=== PATIENT | male | born 1980 | race Hispanic/Latino ===

== ENCOUNTER 2018-05-03 10:25 | Emergency (ER) | payer MEDICARE, OTHER ==
[~2018-05-03] VITALS: Ht 162.6 cm; Wt 74.4 kg
[~2018-05-03 10:25] MED LIST: ATROVASTATIN PO; BACLOFEN10 MG PO; DICYCLOMINE HCL10 MG PO; DIGOXIN250 MCG PO; DIVALPROEX SOD500 M1 PO; DIVALPROEX SOD500 MG; GABAPENTIN100 MG PO; GLIMEPIRIDE2 MG PO; MELOXICAM7.5 MG PO; MIDODRINE HCL5 MG PO; PANTOPRAZOLE SO40 MG PO; PERAMPANEL PO; PROMETHAZINE HC25 M1 PO; REGLAN10 MG PO; VENLAFAXINE HC225 MG PO; VERAMYST10 GM INH; ZYRTEC10 M3 PO; [UNRECOGNIZED DRUG - OTHER]
--- OUTSIDE RECORDS SUMMARY | 2018-05-03 10:30 | XMS REPORT | Continuity of Care Document ---
Author Author [facility] Interface Address Unknown Phone Unavailable Problems Problem Status Onset Date Classification Date Reported Comments Source SDH S/P FALL Active 11/22/[address] [facility] SZ, HYPONATREMIA Active 11/11/[address] [facility] SUBDURAL HEMTOMA, S/P FALL Active 11/11/[address] [facility] SDH Active 11/03/[address] [facility] HEADACHE Active 11/03/2014 [facility] LFLT TRANSFER#[id number] Active 11/03/[address] [facility] Discharge Diagnosis: Headache 11/02/2014 11/05/2014 [facility] DIZZINESS Active 11/01/2014 [facility] Discharge Diagnosis: Gastritis 06/24/2014 06/27/2014 [facility] Discharge Diagnosis: Nausea & vomiting 06/24/2014 06/27/2014 [facility] OTHER Active 06/24/2014 [facility] ABDOMINAL PAIN Active 02/28/2013 [facility] Diabetes mellitus Active Problem 11/27/2014 [facility] Leukemia Resolved Problem 11/27/2014 [facility] Seizure Active Problem 11/27/2014 [facility] SUBDURAL HEMORRHAGE Active [facility] CONVULSIONS NEC Active [facility] ABN BLOOD CHEMISTRY NEC Active [facility] FEBRILE CONVULSIONS NOS Active [facility] Medications Medication Details Route Status Patient Instructions Ordering Provider Order Date Source tramadol hydrochloride 50 MG Oral Tablet 50 mg=1 tab, PO, Q6H, PRN Pain, X 10 day, # 40 tab, 0 Refill(s) Active 11/24/[address] [facility] 24 HR Divalproex Sodium 500 MG Extended Release Tablet 1,500 mg, 3 tab, Route: PO, Drug form: ERTAB, Daily, Dosing Weight 70.4, kg, Start date: 11/24/14 9:00:00, Duration: 30 day, Stop date: 12/23/14 9:00:00Notes: (Same as: Depakote ER) Once daily dosing; indicated for migraines. Divalproex sodium extended-release tab. Do not chew or crush. "Do Not Crush" Inactive 11/24/[address] [facility] Digoxin 250 microgram, 1 tab, Route: PO, Drug form: TAB, Daily, Dosing Weight 70.4, kg, Start date: 11/24/14 9:00:00, Duration: 30 day, Stop date: 12/23/14 9:00:00Notes: Take on an Empty Stomach (Same as: Lanoxin) Inactive 11/24/[address] [facility] Citalopram 40 mg, 2 tab, Route: PO, Drug form: TAB, Daily, Dosing Weight 70.4, kg, Start date: 11/24/14 9:00:00, Duration: 30 day, Stop date: 12/23/14 9:00:00Notes: (Same As: CeleXA) Inactive 11/24/[address] [facility] heparin 5,000 unit, 1 mL, Route: SUB-Q, Drug form: INJ, Q8H, Dosing Weight 70.4, kg, Start date: 11/24/14 9:00:00, Duration: 30 day, Stop date: 12/24/14 8:00:00Notes: porcine heparin Inactive 11/24/[address] [facility] Levetiracetam 500 MG Oral Tablet 1,000 mg, 2 tab, Route: PO, Drug form: TAB, Q12H, Dosing Weight 70.4, kg, Start date: 11/23/14 21:00:00, Duration: 30 day, Stop date: 12/23/14 9:00:00Notes: (Same as:Kezaki) No Longer Active 11/24/[address] [facility] Tramadol 100 mg, 2 tab, Route: PO, Drug form: TAB, Q6H, Dosing Weight 70.4, kg, PRN Pain Score 4-6, Start date: 11/23/14 15:28:00, Duration: 30 day, Stop date: 12/23/14 15:27:00Notes: Not to exceed 400mg/day. (Same As: Ultram) No Longer Active 11/23/[address] [facility] Requip 1 mg, 4 tab, Route: PO, Drug form: TAB, TID, Dosing Weight 70.4, kg, Start date: 11/23/14 13:00:00, Duration: 30 day, Stop date: 12/23/14 9:00:00Notes: (Same as: Requip) No Longer Active 11/23/[address] [facility] Tylenol 650 mg, 2 tab, Route: PO, Drug form: TAB, Q6H, Dosing Weight 70.4, kg, PRN Pain Score 1-3, Start date: 11/23/14 11:42:00, Duration: 30 day, Stop date: 12/23/14 11:41:00Notes: Do not exceed 4 gm/day. (Same as: Tylenol) No Longer Active 11/23/[address] [facility] Keppra 1,000 mg, 2 tab, Route: PO, Drug form: TAB, ONCE, Dosing Weight 70.4, kg, Start date: 11/23/14 11:04:00, Stop date: 11/23/14 11:04:00Notes: (Same as:Keppra) Inactive 11/23/[address] [facility] Levetiracetam 500 mg, 1 tab, Route: PO, Drug form: TAB, Q12H, Dosing Weight 70, kg, Start date: 11/23/14 9:00:00, Duration: 30 day, Stop date: 12/22/14 21:00:00Notes: (Same as:Keppra) Inactive 11/23/[address] [facility] pantoprazole 40 mg, 1 tab, Route: PO, Drug form: ECTAB, Before Breakfast, Dosing Weight 70, kg, Start date: 11/23/14 7:30:00, Duration: 30 day, Stop date: 12/22/14 7:30:00Notes: Tablet should not be chewed or cru shed. (Same as: Protonix) No Longer Active 11/23/[address] [facility] Saline Flush 0.9% 10 ml, Route: IVP, Drug Form: INJ, Dosing Weight 70, kg, Q12H, Start date: 11/22/14 21:00:00, Duration: 30 day, Stop date: 12/22/14 9:00:00Notes: (Same as: BD Posiflush) No Longer Active 11/23/[address] [facility] Docusate 100 mg, 1 cap, Route: PO, Drug form: CAP, Q12H, Dosing Weight 70, kg, Start date: 11/22/14 21:00:00, Duration: 30 day, Stop date: 12/22/14 9:00:00Notes: (Same as: Colace) (Do Not Crush) No Longer Active 11/23/[address] [facility] sennosides, SKILLED NURSING 8.6 mg, 1 tab, Route: PO, Drug Form: TAB, Dosing Weight 70, kg, Q12H, Start date: 11/22/14 21:00:00, Duration: 30 day, Stop date: 12/22/14 9:00:00Notes: (Same as: Senokot) No Longer Active 11/23/[address] [facility] Levetiracetam 1000 MG Oral Tablet [Keppra] 1,000 mg, 1 tab, Route: PO, ONCE, Dosing Weight 70, kg, Start date: 11/22/14 19:23:00, Stop date: 11/22/14 19:23:00 Inactive 11/23/[address] [facility] Dextrose 50% Syringe 6.25 gm, 12.5 mL, Route: IVP, Drug Form: INJ, Dosing Weight 70, kg, PRN, PRN Abnormal Lab Result, Start date: 11/22/14 19:20:00, Duration: 30 day, Stop date: 12/22/14 19:19:00 No Longer Active 11/23/[address] [facility] Regular Insulin, Human 100 UNT/ML Injectable Solution 5 unit, 0.05 mL, Route: SUB-Q, Drug form: SOLN, PRN, Dosing Weight 70, kg, PRN Abnormal Lab Result, Start date: 11/22/14 19:20:00, Duration: 30 day, Stop date: 12/22/14 19:19:00Notes: (Same as: Humulin R) Roll in palms of hands gently; Do not shake vigorously. "single patient use only" (Restricted to patients requiring a dose > 60 units) Stable for 28 days at room temperature Expires in days from Date No Longer Active 11/23/[address] [facility] Saline Flush 0.9% 10 ml, Route: IVP, Drug Form: INJ, Dosing Weight 70, kg, PRN, PRN Line Flush, Start date: 11/22/14 19:20:00, Duration: 30 day, Stop date: 12/22/14 19:19:00Notes: (Same as: BD Posiflush) No Longer Active 11/23/[address] [facility] Ondansetron 4 mg, 2 mL, Route: IVP, Drug form: INJ, Q8H, Dosing Weight 70, kg, PRN Nausea & Vomiting, Start date: 11/22/14 19:20:00, Duration: 30 day, Stop date: 12/22/14 19:19:00Notes: (Same as: Zofran) MEDICATION WASTE Product Size: 4 mg Product Wasted: ___ mg No Longer Active 11/23/[address] [facility] Levetiracetam 1,000 mg, Route: IVPB, ONCE, Dosing Weight 70, kg, Start date: 11/22/14 19:20:00, Stop date: 11/22/14 19:20:00Notes: Same as Keppra Mix with 100 mL NS, LR or D5W MEDICATION WASTE Product S ize: 500 mg Product Wasted: ___ mg Inactive 11/23/[address] [facility] Sodium Chloride 0.154 MEQ/ML Injectable Solution 1,000 mL, Rate: 100 ml/hr, Infuse over: 10 hr, Route: IV, Dosing Weight 70 kg, Total Volume: 1,000, Start date: 11/22/14 19:20:00, Duration: 30 day, Stop date: 12/22/14 19:19:00 No Longer Active 11/23/[address] [facility] tramadol hydrochloride 50 MG Oral Tablet 50 mg=1 tab, PO, Q6H, PRN Pain, X 10 day, # 40 tab, 0 Refill(s) Active 11/15/[address] [facility] senna 8.6 mg oral tablet 8.6 mg=1 tab, PO, Q12H, X 10 day, # 20 tab, 0 Refill(s) Active 11/15/[address] [facility] Levetiracetam 500 MG Oral Tablet 1,000 mg=2 tab, PO, Q12H, # 16 tab, 0 Refill(s) Active 11/15/[address] [facility] docusate sodium 100 mg oral capsule 100 mg=1 cap, PO, Q12H, # 20 cap, 0 Refill(s) Active 11/15/[address] [facility] 24 HR Divalproex Sodium 500 MG Extended Release Tablet 1,500 mg=3 tab, PO, Daily, 0 Refill(s) Active 11/15/[address] [facility] pantoprazole 40 MG Enteric Coated Tablet [Protonix] 40 mg=1 tab, PO, Daily, # 30 tab, 0 Refill(s) Active 11/15/[address] [facility] pneumococcal capsular polysaccharide type 1 vaccine / pneumococcal capsular polysaccharide type 10A vaccine / pneumococcal capsular polysaccharide type 11A vaccine / pneumococcal capsular polysaccharide type 12F vaccine / pneumococcal capsular polysacchar 0.5 mL, Route: IM, Drug Form: INJ, Daily, Start date: 11/14/14 9:00:00, Duration: 1 doses or times, Stop date: 11/14/14 9:00:00Notes: (Same as: Pneumovax 23) Inactive 11/14/[address] [facility] heparin 5,000 unit, 1 mL, Route: SUB-Q, Drug form: INJ, Q8H, Dosing Weight 61.8, kg, Start date: 11/12/14 16:00:00, Duration: 30 day, Stop date: 12/12/14 8:00:00Notes: porcine heparin No Longer Active 11/12/[address] [facility] Flomax 0.4 mg, 1 cap, Route: PO, Drug form: CAP, After Breakfast, Dosing Weight 61.8, kg, Start date: 11/12/14 11:30:00, Duration: 30 day, Stop date: 12/12/14 8:30:00Notes: (Same As: Flomax) No Longer Active 11/12/[address] [facility] Ibuprofen 400 mg, 1 tab, Route: PO, Drug form: TAB, Q4H, Dosing Weight 61.8, kg, PRN Pain Score 1-3, Start date: 11/12/14 10:41:00, Duration: 30 day, Stop date: 12/12/14 10:40:00Notes: (Same as: Motrin) "Do Not Crush" Give with food. No Longer Active 11/12/[address] [facility] Docusate 100 mg, 1 cap, Route: PO, Drug form: CAP, Q12H, Dosing Weight 61.8, kg, Start date: 11/12/14 9:00:00, Duration: 30 day, Stop date: 12/11/14 21:00:00Notes: (Same as: Colace) (Do Not Crush) No Longer Active 11/12/[address] [facility] sennosides, SKILLED NURSING 8.6 mg, 1 tab, Route: PO, Drug Form: TAB, Dosing Weight 61.8, kg, Q12H, Start date: 11/12/14 9:00:00, Duration: 30 day, Stop date: 12/11/14 21:00:00Notes: (Same as: Senokot) No Longer Active 11/12/[address] [facility] Divalproex Sodium 500 MG Enteric Coated Tablet 500 mg, 1 tab, Route: PO, Drug form: ECTAB, Q8H, Dosing Weight 61.8, kg, Start date: 11/12/14 8:00:00, Stop date: 12/12/14 0:00:00, Delayed Release tabletSpecial Instructions: Delayed Release tabletNotes: (Same as: Depakote Delayed Release) Do not confuse with the extended-release tablet. Delayed absorption enteric coated tablet. Do not crush No Longer Active 11/12/[address] [facility] Sodium Chloride 1000 MG Oral Tablet 3 gm, 3 tab, Route: PO, Drug form: TAB, Q6H, Dosing Weight 61.8, kg, Start date: 11/12/14 6:00:00, Duration: 30 day, Stop date: 12/12/14 0:00:00 No Longer Active 11/12/[address] [facility] magnesium sulfate 2 gm, 50 mL, Route: IVPB, Drug form: INJ, Q2H, Start date: 11/12/14 4:00:00, Duration: 2 doses or times, Stop date: 11/12/14 6:00:00 Inactive 11/12/[address] [facility] Regular Insulin, Human 100 UNT/ML Injectable Solution 7 unit, 0.07 mL, Route: SUB-Q, Drug form: SOLN, PRN, Dosing Weight 61.8, kg, PRN Abnormal Lab Result, Start date: 11/11/14 22:28:00, Duration: 30 day, Stop date: 12/11/14 22:27:00Notes: (Same as: Humulin R) Roll in palms of hands gently; Do not shake vigorously. "single patient use only" (Restricted to patients requiring a dose > 60 units) Stable for 28 days at room temperature Expires in days from Date No Longer Active 11/12/[address] [facility] Dextrose 50% Syringe 6.25 gm, 12.5 mL, Route: IVP, Drug Form: INJ, Dosing Weight 61.8, kg, PRN, PRN Abnormal Lab Result, Start date: 11/11/14 22:28:00, Duration: 30 day, Stop date: 12/11/14 22:27:00 No Longer Active 11/12/[address] [facility] tramadol hydrochloride 50 MG Oral Tablet 50 mg, 1 tab, Route: PO, Drug form: TAB, Q4H, Dosing Weight 61.8, kg, PRN Pain Score 1-3, Start date: 11/11/14 22:26:00, Duration: 30 day, Stop date: 12/11/14 22:25:00Notes: Not to exceed 400mg/day. (Same As: Ultram) No Longer Active 11/12/[address] [facility] Saline Flush 0.9% 10 ml, Route: IVP, Drug Form: INJ, Dosing Weight 68.182, kg, Q12H, Start date: 11/11/14 21:00:00, Duration: 30 day, Stop date: 12/11/14 9:00:00Notes: (Same as: BD Posiflush) No Longer Active 11/12/[address] [facility] Levetiracetam 1,000 mg, 2 tab, Route: PO, Drug form: TAB, Q12H, Dosing Weight 68.182, kg, Start date: 11/11/14 21:00:00, Duration: 30 day, Stop date: 12/11/14 9:00:00Notes: (Same as:Keppra) No Longer Active 11/12/[address] [facility] Saline Flush 0.9% 10 ml, Route: IVP, Drug Form: INJ, Dosing Weight 68.182, kg, PRN, PRN Line Flush, Start date: 11/11/14 17:13:00, Duration: 30 day, Stop date: 12/11/14 17:12:00Notes: (Same as: BD Posiflush) No Longer Active 11/11/[address] [facility] Sodium Chloride 0.154 MEQ/ML Injectable Solution 1,000 mL, Rate: 100 ml/hr, Infuse over: 10 hr, Route: IV, Dosing Weight 68.182 kg, Total Volume: 1,000, Start date: 11/11/14 17:13:00, Duration: 30 day, Stop date: 12/11/14 17:12:00 No Longer Active 11/11/[address] [facility] Levetiracetam 1,000 mg, Route: IVPB, ONCE, Dosing Weight 68.182, kg, Start date: 11/11/14 17:13:00, Stop date: 11/11/14 17:13:00 Inactive 11/11/[address] [facility] Keppra 1,000 mg, Route: IV, ONCE, Dosing Weight 68.182, kg, Start date: 11/11/14 17:07:00, Stop date: 11/11/14 17:07:00Notes: Same as Keppra Mix with 100 mL NS, LR or D5W MEDICATION WASTE Product Size: 500 mg Product Wasted: ___ mg Inactive 11/11/[address] [facility] Sodium Chloride 1000 MG Oral Tablet 3 gm=3 tab, PO, Q6H, # 360 tab, 0 Refill(s) Active 11/07/[address] [facility] tramadol hydrochloride 50 MG Oral Tablet 50 mg=1 tab, PO, Q6H, PRN Pain Score 4-6, X 30 day, # 120 tab, 0 Refill(s) Active 11/07/[address] [facility] tamsulosin 0.4 mg oral capsule 0.4 mg=1 cap, PO, Daily, # 21 cap, 0 Refill(s) Active 11/07/[address] [facility] senna 8.6 mg oral tablet 8.6 mg=1 tab, PO, Q12H, X 5 day, # 10 tab, 0 Refill(s) Active 11/07/[address] [facility] docusate sodium 100 mg oral capsule 100 mg=1 cap, PO, Q12H, # 28 cap, 0 Refill(s) Active 11/07/[address] [facility] Midodrine 5 mg, PO, TID, 0 Refill(s) Active 11/07/[address] [facility] Lactulose 667 MG/ML Oral Solution 10 gm=15 mL, PO, Daily, 0 Refill(s) Active 11/07/[address] [facility] ropinirole 1 MG Oral Tablet [Requip] 1 mg=1 tab, PO, TID, 0 Refill(s) Active 11/07/[address] [facility] Citalopram 40 mg, PO, Daily, 0 Refill(s) Active 11/07/[address] [facility] meclizine 12.5 mg oral tablet 12.5 mg=1 tab, PO, BID, 0 Refill(s) Active 11/07/[address] [facility] dicyclomine 10 mg oral capsule 20 mg=2 cap, PO, QID, 0 Refill(s) Active 11/07/[address] [facility] Buspirone 5 mg, PO, BID, 0 Refill(s) Active 11/07/[address] [facility] Valproic Acid 250 MG Enteric Coated Capsule PO, Q24H, 1500mg Daily, 0 Refill(s)Special Instructions: 1500mg Daily Active 11/07/[address] [facility] Metformin 500 mg, PO, BID, 0 Refill(s) Active 11/07/[address] [facility] Digoxin .25, Daily, 0 Refill(s) Active 11/07/[address] [facility] Divalproex Sodium 500 MG Enteric Coated Tablet [Depakote] 500 mg=1 tab, PO, TID, 0 Refill(s) Active 11/07/[address] [facility] Sodium Chloride 1000 MG Oral Tablet 2 gm, 2 tab, Route: PO, Drug form: TAB, Q8H, Dosing Weight 68.182, kg, Start date: 11/06/14 16:00:00, Duration: 30 day, Stop date: 12/06/14 8:00:00 Inactive 11/06/[address] [facility] 24 HR Divalproex Sodium 500 MG Extended Release Tablet 1,500 mg, 3 tab, Route: PO, Drug form: ERTAB, Daily, Dosing Weight 68.182, kg, Start date: 11/06/14 9:00:00, Duration: 30 day, Stop date: 12/05/14 9:00:00Notes: (Same as: Depakote ER) Once daily dosing; indicated for migraines. Divalproex sodium extended-release tab. Do not chew or crush. "Do Not Crush" No Longer Active 11/06/[address] [facility] heparin sodium, porcine 2500 UNT/ML Injectable Solution 5,000 unit, 1 mL, Route: SUB-Q, Drug form: INJ, Q8H, Dosing Weight 68.182, kg, Start date: 11/06/14 0:00:00, Duration: 30 day, Stop date: 12/05/14 16:00:00Notes: porcine heparin No Longer Active 11/06/[address] [facility] Zofran 4 mg, 1 tab, Route: PO, Drug form: TAB, Q8H, Dosing Weight 68.182, kg, PRN Nausea, Start date: 11/05/14 20:11:00, Duration: 30 day, Stop date: 12/05/14 20:10:00Notes: (Same as: Zofran) No Longer Active 11/06/[address] [facility] Tramadol 50 mg, 1 tab, Route: PO, Drug form: TAB, Q6H, Dosing Weight 68.182, kg, PRN Pain Score 4-6, Start date: 11/05/14 18:00:00, Duration: 30 day, Stop date: 12/05/14 17:59:00Notes: Not to exceed 400mg/day. (Same As: Ultram) No Longer Active 11/05/[address] [facility] 24 HR Divalproex Sodium 500 MG Extended Release Tablet [Depakote] 1,000 mg, 2 tab, Route: PO, Drug form: ERTAB, ONCE, Dosing Weight 68.182, kg, Start date: 11/05/14 17:00:00, Stop date: 11/05/14 17:00:00Notes: (Same as: Depakote ER) Once daily dosing; indicated for migraines. Divalproex sodium extended-release tab. Do not chew or crush. "Do Not Crush" Inactive 11/05/[address] [facility] Citalopram 40 mg, 2 tab, Route: PO, Drug form: TAB, Daily, Dosing Weight 68.182, kg, Start date: 11/05/14 9:00:00, Duration: 30 day, Stop date: 12/04/14 9:00:00Notes: (Same As: CeleXA) No Longer Active 11/05/[address] [facility] Sodium Chloride 1000 MG Oral Tablet 3 gm, 3 tab, Route: PO, Drug form: TAB, Q6H, Dosing Weight 68.182, kg, Start date: 11/05/14 6:00:00, Duration: 30 day, Stop date: 12/05/14 0:00:00 No Longer Active 11/05/[address] [facility] calcium gluconate + Sodium Chloride 0.9% IV 100 mL 3,000 mg, 30 mL, Route: IV, ONCE, Start date: 11/05/14 4:15:00, Stop date: 11/05/14 4:15:00 Inactive 11/05/[address] [facility] magnesium sulfate 2 gm, 50 mL, Route: IVPB, Drug form: INJ, Q2H, Start date: 11/05/14 4:00:00, Duration: 1 doses or times, Stop date: 11/05/14 4:00:00 Inactive 11/05/[address] [facility] Sodium Chloride 1000 MG Oral Tablet 2 gm, 2 tab, Route: PO, Drug form: TAB, Q8H, Dosing Weight 68.182, kg, Start date: 11/05/14 2:24:00, Duration: 30 day, Stop date: 12/05/14 0:00:00 Inactive 11/05/[address] [facility] Water 1000 MG/ML Injectable Solution 1,000 mL, Rate: 50 ml/hr, Infuse over: 21.7 hr, Route: IV, Dosing Weight 68.182 kg, Total Volume: 1,085.5, Start date: 11/05/14 0:42:00, Stop date: 12/05/14 0:41:00, For IMU and ICU use only. See Order Comments!!Special Instructions: For IMU and ICU use only. See Order Comments!! Inactive 11/05/[address] [facility] Flomax 0.4 mg, 1 cap, Route: PO, Drug form: CAP, Daily, Dosing Weight 68.182, kg, Start date: 11/04/14 21:14:00, Duration: 30 day, Stop date: 12/04/14 9:00:00Notes: (Same As: Flomax) "Do Not Crush" No Longer Active 11/05/[address] [facility] Midodrine 5 mg, 1 tab, Route: PO, Drug form: TAB, TID, Dosing Weight 68.182, kg, Start date: 11/04/14 13:00:00, Duration: 30 day, Stop date: 12/04/14 9:00:00Notes: (Same as:Proamatine) No Longer Active 11/04/[address] [facility] Requip 1 mg, 1 tab, Route: PO, Drug form: TAB, TID-Before Meals, Dosing Weight 68.182, kg, Start date: 11/04/14 11:30:00, Duration: 30 day, Stop date: 12/04/14 7:30:00Notes: (Same as: Requip) No Longer Active 11/04/[address] [facility] digoxin 250 mcg (0.25 mg) oral tablet 0.25 mg, 1 tab, Route: PO, Drug form: TAB, Daily, Dosing Weight 68.182, kg, Priority: NOW, Start date: 11/04/14 10:49:00, Duration: 30 day, Stop date: 12/04/14 9:00:00Notes: Take on an Empty Stomach (Same as: Lanoxin) No Longer Active 11/04/[address] [facility] Valproic Acid 100 MG/ML Injectable Solution 500 mg, 5 mL, Route: IVPB, Q8H, Dosing Weight 68.182, kg, Start date: 11/04/14 10:00:00, Duration: 30 day, Stop date: 12/04/14 8:00:00Notes: Dilute in at least 50ml D5W or NS. Infusion rate=20 mg/min (Same As: Depacon) No Longer Active 11/04/[address] [facility] 24 HR Divalproex Sodium 500 MG Extended Release Tablet [Depakote] 1,000 mg, 2 tab, Route: PO, Drug form: ERTAB, Daily, Dosing Weight 68.182, kg, Start date: 11/04/14 9:00:00, Duration: 30 day, Stop date: 12/03/14 9:00:00Notes: (Same as: Depakote ER) Once daily dosing; indicated for migraines. Divalproex sodium extended-release tab. Do not chew or crush. "Do Not Crush" Inactive 11/04/[address] [facility] Zofran 4 mg, 2 mL, Route: IVP, Drug form: INJ, ONCE, Dosing Weight 68.182, kg, Start date: 11/04/14 6:42:00, Stop date: 11/04/14 6:42:00Notes: (Same as: Zofran) MEDICATION WASTE Product Size: 4 mg Product Wasted: ___ mg Inactive 11/04/[address] [facility] Acetaminophen 1,000 mg, 100 mL, Route: IV, Drug form: INJ, ONCE, Dosing Weight 68.182, kg, Start date: 11/04/14 6:42:00, Stop date: 11/04/14 6:42:00Notes: Infuse over 15 minutes Do not exceed 4gm/day of acetaminophen MEDICATION WASTE Product Size: 1000 mg Product Wasted: ___ mg Inactive 11/04/[address] [facility] magnesium sulfate 2 gm, 50 mL, Route: IVPB, Drug form: INJ, ONCE, Start date: 11/04/14 5:00:00, Stop date: 11/04/14 5:00:00 Inactive 11/04/[address] [facility] Water 1000 MG/ML Injectable Solution 1,000 mL, Rate: 75 ml/hr, Infuse over: 14 hr, Route: IV, Dosing Weight 68.182 kg, Total Volume: 1,047, Start date: 11/04/14 3:48:00, Duration: 30 day, Stop date: 12/04/14 3:47:00, For IMU and ICU use only. See Order Comments!!Special Instructions: For IMU and ICU use only. See Order Comments!! Inactive 11/04/[address] [facility] Ondansetron 4 mg, 2 mL, Route: IVP, Drug form: INJ, ONCE, Dosing Weight 68.182, kg, PRN Nausea & Vomiting, Start date: 11/03/14 22:53:00Notes: (Same as: Zofran) MEDICATION WASTE Product Size: 4 mg Product Wasted: ___ mg No Longer Active 11/04/[address] [facility] Naloxone 0.04 mg, 0.1 mL, Route: IVP, Drug form: INJ, Q2MIN, Dosing Weight 68.182, kg, PRN Narcotic Reversal, Start date: 11/03/14 22:53:00, Duration: 8 doses or times, Stop date: Limited # of timesNotes: Same as Narcan No Longer Active 11/04/[address] [facility] Flumazenil 0.2 mg, 2 mL, Route: IVP, Drug form: INJ, PRN, Dosing Weight 68.182, kg, PRN Benzodiazepine Reversal, Initial dose, Start date: 11/03/14 22:53:00, Duration: 30 day, Stop date: 12/03/14 22:52:00Notes: (Same as: Romazicon) No Longer Active 11/04/[address] [facility] Fentanyl 25 microgram, 0.5 mL, Route: IVP, Drug form: INJ, Q5Min, Dosing Weight 68.182, kg, PRN Pain Score 4-6, Start date: 11/03/14 22:53:00, Duration: 4 doses or times, Stop date: Limited # of timesNotes: (Same as: Sublimaze) Preservative free. No Longer Active 11/04/[address] [facility] Saline Flush 0.9% 10 ml, Route: IVP, Drug Form: INJ, Dosing Weight 68.182, kg, Q12H, Start date: 11/03/14 21:00:00, Duration: 30 day, Stop date: 12/03/14 9:00:00Notes: preservative free. No Longer Active 11/04/[address] [facility] Docusate 100 mg, 1 cap, Route: PO, Drug form: CAP, Q12H, Dosing Weight 68.182, kg, Start date: 11/03/14 21:00:00, Duration: 30 day, Stop date: 12/03/14 9:00:00Notes: (Same as: Colace) (Do Not Crush) No Longer Active 11/04/[address] [facility] sennosides, SKILLED NURSING 8.6 mg, 1 tab, Route: PO, Drug Form: TAB, Dosing Weight 68.182, kg, Q12H, Start date: 11/03/14 21:00:00, Duration: 30 day, Stop date: 12/03/14 9:00:00Notes: (Same as: Senokot) No Longer Active 11/04/[address] [facility] Levetiracetam 1,000 mg, 2 tab, Route: PO, Drug form: TAB, Q12H, Dosing Weight 68.182, kg, Start date: 11/03/14 21:00:00, Stop date: 12/03/14 9:00:00Notes: (Same as:Keppra) No Longer Active 11/04/[address] [facility] ceFAZolin (SCIP) + Sodium Chloride 0.9% IV 100 mL Route: IVP, Drug form: INJ, [id number], Dosing Weight 68.182, kg, Start date: 11/03/14 21:00:00, Duration: 1 day, Stop date: 11/04/14 13:00:00Notes: (Same As: Ancef, Dameonzol) Cefazolin FOR IV SET ONLY MEDICATION WASTE Product Size: 1000 mg Product Wasted: _0__ mg No Longer Active 11/04/[address] [facility] Regular Insulin, Human 100 UNT/ML Injectable Solution 5 unit, 0.05 mL, Route: SUB-Q, Drug form: SOLN, PRN, Dosing Weight 68.182, kg, PRN Abnormal Lab Result, Start date: 11/03/14 20:53:00, Duration: 30 day, Stop date: 12/03/14 20:52:00Notes: (Same as: Humulin R) Roll in palms of hands gently; Do not shake vigorously. "single patient use only" (Restricted to patients requiring a dose > 60 units) Stable for 28 days at room temperature Expires in days from Date No Longer Active 11/04/[address] [facility] Dextrose 50% Syringe 25 gm, 50 mL, Route: IVP, Drug Form: INJ, Dosing Weight 68.182, kg, PRN, PRN Abnormal Lab Result, Start date: 11/03/14 20:53:00, Duration: 30 day, Stop date: 12/03/14 20:52:00 No Longer Active 11/04/[address] [facility] Sodium Chloride 0.9% (titrate) 250 mL 250 mL, Rate: indian blanket weaver for use with blood product administration, Dosing Weight 68.182, kg, Route: IV, Total Volume: 250, Start Date: 11/03/14 20:53:00, Duration: 30 day, Stop date: 12/03/14 20:52:00, Replace Every: 24 hr No Longer Active 11/04/[address] [facility] Saline Flush 0.9% 10 ml, Route: IVP, Drug Form: INJ, Dosing Weight 68.182, kg, PRN, PRN Line Flush, Start date: 11/03/14 20:53:00, Duration: 30 day, Stop date: 12/03/14 20:52:00Notes: (Same as: BD Posiflush) No Longer Active 11/04/[address] [facility] Levetiracetam 1,000 mg, Route: IVPB, Drug form: INJ, ONCE, Dosing Weight 68.182, kg, Start date: 11/03/14 20:53:00, Stop date: 11/03/14 20:53:00Notes: Same as Keppra Mix with 100 mL NS, LR or D5W MEDICATION WA MING Product Size: 500 mg Product Wasted: ___ mg No Longer Active 11/04/[address] [facility] Sodium Chloride 0.154 MEQ/ML Injectable Solution 1,000 mL, Rate: 75 ml/hr, Infuse over: 13.3 hr, Route: IV, Dosing Weight 68.182 kg, Total Volume: 1,000, Start date: 11/03/14 20:53:00, Duration: 30 day, Stop date: 12/03/14 20:52:00 No Longer Active 11/04/[address] [facility] Iohexol 85 mL, Route: IVP, Drug Form: SOLN, Dosing Weight 68.182, kg, ONCALL, STAT, Start date: 11/03/14 20:07:00, Duration: 1 doses or times, Dose=2.2ml/kg, Max [id number] -- "To be infused by Radiology Staff ONLY"Special Instructions: Dose=2.2ml/kg, Max [id number] -- "To be infused by Radiology Staff ONLY" Inactive 11/04/[address] [facility] Saline Flush 0.9% 10 mL, Route: IVP, Drug Form: INJ, Dosing Weight 68.182, kg, PRN, PRN Line Flush, Start date: 11/03/14 19:26:00, Duration: 30 day, Stop date: 12/03/14 19:25:00Notes: (Same as: BD Posiflush) No Longer Active 11/04/[address] [facility] Zofran 4 mg, 2 mL, Route: IVP, Drug form: INJ, ONCE, Dosing Weight 68.182, kg, Priority: STAT, Start date: 11/03/14 17:54:00, Stop date: 11/03/14 17:54:00Notes: (Same as: Zofran) MEDICATION WASTE Product Size: 4 mg Product Wasted: ___ mg Inactive 11/03/2014 [facility] Reglan 20 mg, 4 mL, Route: IVP, Drug form: INJ, ONCE, Dosing Weight 68.182, kg, Priority: STAT, Start date: 11/03/14 16:31:00, Stop date: 11/03/14 16:31:00Notes: (Same as: Reglan) Inactive 11/03/2014 [facility] Sodium Chloride 0.154 MEQ/ML Injectable Solution 1,000 mL, 1,000 ml/hr, Infuse Over: 1 hr, Route: IV, 1,000, Drug form: INJ, ONCE, Priority: STAT, Dosing Weight 68.182 kg, Start date: 11/03/14 16:31:00, Duration: 1 doses or times, Stop date: 11/03/14 16:31:00 Inactive 11/03/2014 [facility] Benadryl 25 mg, 0.5 mL, Route: IVP, Drug form: INJ, ONCE, Dosing Weight 68.182, kg, Priority: STAT, Start date: 11/03/14 16:31:00, Stop date: 11/03/14 16:31:00Notes: (Same as: Benadryl) Inactive 11/03/2014 [facility] Acetaminophen 300 MG / butalbital 50 MG / Caffeine 40 MG Oral Capsule [Fioricet] 1 cap, PO, Q4H, PRN PRN Headache, Do not exceed 6 capsules in 24 hours, X 5 day, # 30 cap, 0 Refill(s)Special Instructions: Do not exceed 6 capsules in 24 hours Active 11/02/2014 [facility] 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, Route: IVP, Drug form: INJ, ONCE, Dosing Weight 71.364, kg, Priority: STAT, Start date: 11/01/14 23:22:00, Stop date: 11/01/14 23:22:00 No Longer Active 11/02/2014 [facility] Diphenhydramine 25 mg, Route: IVP, ONCE, Dosing Weight 71.364, kg, Priority: STAT, Start date: 11/01/14 23:22:00, Stop date: 11/01/14 23:22:00 No Longer Active 11/02/2014 [facility] Sodium Chloride 0.154 MEQ/ML Injectable Solution 1,000 mL, 1,000 ml/hr, Infuse Over: 1 Hour, Route: IV, ONCE, Priority: STAT, Dosing Weight 71.364 kg, Start date: 11/01/14 23:16:00, Duration: 1 doses or times, Stop date: 11/01/14 23:16:00 No Longer Active 11/02/2014 [facility] Dicyclomine Hydrochloride 20 MG Oral Tablet [Bentyl] 20 mg=1 tab, PO, QID, # 28 tab, 0 Refill(s) Active 06/25/2014 [facility] Ondansetron 4 MG Disintegrating Tablet [Zofran] 4 mg=1 tab, PO, TID, as needed for nausea/vomiting, # 12 tab, 0 Refill(s) Active 06/25/2014 [facility] Esomeprazole 40 MG Enteric Coated Capsule [Nexium] 40 mg=1 cap, PO, Daily, # 30 cap, 0 Refill(s) Active 06/25/2014 [facility] Zofran 4 mg, Route: IVP, Drug form: INJ, ONCE, Dosing Weight 70.455, kg, Priority: STAT, Start date: 06/24/14 20:42:00, Stop date: 06/24/14 20:42:00 Inactive 06/25/2014 [facility] 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, Route: IVP, Drug form: INJ, ONCE, Dosing Weight 70.455, kg, Priority: STAT, Start date: 06/24/14 19:28:00, Stop date: 06/24/14 19:28:00 Inactive 06/25/2014 [facility] Ondansetron 4 mg, Route: IVP, ONCE, Dosing Weight 70.455, kg, Priority: STAT, Start date: 06/24/14 19:28:00, Stop date: 06/24/14 19:28:00 Inactive 06/25/2014 [facility] Saline Flush 0.9% 10 mL, Route: IVP, Drug Form: INJ, Dosing Weight 70.455, kg, PRN, PRN Line Flush, Start date: 06/24/14 19:28:00, Duration: 30 day, Stop date: 07/24/14 19:27:00Notes: Same as: BD Posiflush Sterile No Longer Active 06/25/2014 [facility] Sodium Chloride 0.154 MEQ/ML Injectable Solution 1,000 mL, Infuse Over: 1 hr, Route: IV, ONCE, Priority: STAT, Dosing Weight 70.455 kg, Start date: 06/24/14 19:28:00, Duration: 1 doses or times, Stop date: 06/24/14 19:28:00 Inactive 06/25/2014 [facility] Bentyl 20 mg oral tablet 20 mg, 1 tab, PO, QID, PRN, 30 tab, abdominal pain, Substitution Allowed Active Marito 03/01/2013 [facility] morphine Sulfate 4 mg, Route: IVP, Drug form: INJ, ONCE, Dosing Weight 72.727, kg, Priority: STAT, Start date: 02/28/13 21:33:00, Stop date: 02/28/13 21:33:00 Inactive Marito 03/01/2013 [facility] ondansetron 4 mg, Route: IVP, Drug form: INJ, ONCE, Dosing Weight 72.727, kg, Priority: STAT, Start date: 02/28/13 21:33:00, Stop date: 02/28/13 21:33:00 Inactive Marito 03/01/2013 [facility] Sodium Chloride 0.9% (Bolus) IV 1000 mL 1,000 mL, Rate: 1,000 ml/hr, Infuse over: 1 hr, Route: IV, Dosing Weight 72.727 kg, Total Volume: 1,000, Priority: STAT, Start date: 02/28/13 21:33:00, Duration: 1 doses or times, Stop date: 02/28/13 22:32:00, Bolus DoseBolus Dose Inactive Marito 03/01/2013 [facility] Allergies, Adverse Reactions, Alerts Substance Category Reaction Severity Reaction type Status Date Reported Comments Source HYDROcodone-pseudoephedrine Assertion Drug allergy Active [facility] simvastatin Assertion Drug allergy Active [facility] metFORMIN Assertion Drug allergy Active [facility] Immunizations Immunization Date Given Site Status Last Updated Comments Source pneumococcal 23-valent vaccine 11/14/2014 Left Deltoid completed Shashank [facility] Results Order Name Results Value Reference Range Date Interpretation Comments Source BLOOD BANK RESULTS ABO/Rh O POS 11/23/[address] [facility] BLOOD BANK RESULTS Antibody Scrn Negative (11/22/14 10:36 PM) 11/23/[address] [facility] CHEM PANEL Procalcitonin Lvl 0.05 ng/mL 0.00 - 0.10 11/23/[address] [facility] CHEM PANEL eGFR 117 mL/min/1.73m2 11/23/2014 Result Comment: The eGFR is calculated using the CKD-EPI formula. In most young, healthy individuals the eGFR will be >90 mL/min/1.73m2. The eGFR declines with age. An eGFR of 60-89 may be normal in some populations, particularly the elderly, for whom the CKD-EPI formula has not been extensively validated. Use of the eGFR is not recommended in the following populations: Individuals with unstable creatinine concentrations, including patients and those with serious co-morbid conditions. Patients with extremes in muscle mass or diet. The data above are obtained from the National Kidney Disease Education Program (NKDEP) which additionally recommends that when the eGFR is used in patients with extremes of body mass index for purposes of drug dosing, the eGFR should be multiplied by the estimated BMI. [facility] CHEM PANEL Potassium Lvl 5.0 meq/L 3.5 - 5.1 11/23/[address] [facility] CHEM PANEL Sodium Lvl 138 meq/L 135 - 145 11/23/[address] [facility] CHEM PANEL Chloride Lvl 104 meq/L 95 - 109 11/23/[address] [facility] CHEM PANEL Total Protein 8.0 g/dL 6.4 - 8.4 11/23/[address] [facility] CHEM PANEL Calcium Lvl 9.3 mg/dL 8.5 - 10.5 11/23/[address] [facility] CHEM PANEL Albumin Lvl 3.4 g/dL 3.5 - 5.0 11/23/[address] [facility] CHEM PANEL ALT 78 unit/L 0 - 65 11/23/[address] [facility] CHEM PANEL CO2 29 meq/L 24 - 32 11/23/[address] [facility] CHEM PANEL Globulin 4.6 g/dL 2.0 - 4.0 11/23/[address] [facility] CHEM PANEL A/G Ratio 0.7 0.7 - 1.6 11/23/[address] [facility] CHEM PANEL B/C Ratio 11 6 - 25 11/23/[address] [facility] CHEM PANEL AGAP 10.0 meq/L 10.0 - 20.0 11/23/[address] [facility] CHEM PANEL Alk Phos 111 unit/L 39 - 136 11/23/[address] [facility] CHEM PANEL AST 73 unit/L 0 - 37 11/23/[address] [facility] CHEM PANEL Bili Total 0.4 mg/dL 0.2 - 1.3 11/23/[address] [facility] CHEM PANEL Creatinine Lvl 0.8 mg/dL 0.5 - 1.4 11/23/[address] [facility] CHEM PANEL BUN 9 mg/dL 7 - 22 11/23/[address] [facility] CHEM PANEL Glucose Lvl 82 mg/dL 70 - 99 11/23/[address] [facility] HEMATOLOGY Sed Rate 54 mm/h 0 - 15 11/23/[address] [facility] HEMATOLOGY MPV 6.6 fL 7.4 - 10.4 11/23/[address] [facility] HEMATOLOGY RDW 13.1 % 11.5 - 14.5 11/23/[address] [facility] HEMATOLOGY Platelet 423 K/CMM 133 - 450 11/23/[address] [facility] HEMATOLOGY MCV 95.9 fL 80.0 - 94.0 11/23/[address] [facility] HEMATOLOGY MCHC 33.4 g/dL 32.0 - 36.0 11/23/[address] [facility] HEMATOLOGY MCH 32.1 pg 27.0 - 31.0 11/23/[address] [facility] HEMATOLOGY Hct 37.4 % 42.0 - 54.0 11/23/[address] [facility] HEMATOLOGY Hgb 12.5 g/dL 14.0 - 18.0 11/23/[address] [facility] HEMATOLOGY RBC 3.90 M/CMM 4.70 - 6.10 11/23/[address] [facility] HEMATOLOGY WBC 9.6 K/CMM 3.7 - 10.4 11/23/[address] [facility] HEMATOLOGY Eosinophils # 0.3 K/CMM 0.0 - 0.5 11/23/[address] [facility] HEMATOLOGY Basophils # 0.1 K/CMM 0.0 - 0.2 11/23/[address] [facility] HEMATOLOGY Lymphocytes # 3.0 K/CMM 1.0 - 5.5 11/23/[address] [facility] HEMATOLOGY Monocytes # 1.1 K/CMM 0.0 - 0.8 11/23/[address] [facility] HEMATOLOGY Segs-Bands # 5.2 K/CMM 1.5 - 8.1 11/23/[address] [facility] HEMATOLOGY Basophils 1.0 % 0.0 - 1.0 11/23/[address] [facility] HEMATOLOGY Monocytes 11.3 % 2.0 - 12.0 11/23/[address] [facility] HEMATOLOGY Lymphocytes 30.8 % 20.0 - 40.0 11/23/[address] [facility] HEMATOLOGY Eosinophils 3.2 % 0.0 - 4.0 11/23/[address] [facility] HEMATOLOGY Segs 53.7 % 45.0 - 75.0 11/23/[address] [facility] IMMUNOLOGY C-REACTIVE PROTEIN 3.1 mg/L <=2.9 mg/L 11/23/[address] [facility] HEMATOLOGY G-value 10.8 K d/sc 5.0 - 11.6 11/22/[address] [facility] HEMATOLOGY Estimated % Lysis 5.7 % 0.0 - 7.5 11/22/2014 Result Comment: "Significant Findings called to Graeme Hendricks_at 11/22/2014 17:46__by ct__.Read Back OK." [facility] HEMATOLOGY Max Amp 68 mm 52 - 71 11/22/[address] [facility] HEMATOLOGY K-time 0.8 min 0.6 - 2.3 11/22/[address] [facility] HEMATOLOGY Angle 81 degrees 64 - 80 11/22/[address] [facility] HEMATOLOGY R-time 0.6 min 0.4 - 0.7 11/22/[address] [facility] HEMATOLOGY [place] 0.5 min 11/22/[address] [facility] HEMATOLOGY Rapid TEG Sample Type Citrated Whole Blood (11/22/14 4:52 PM) 11/22/[address] [facility] HEMATOLOGY ACT (TEG) 105 s 86 - 118 11/22/[address] [facility] HEMATOLOGY PT 13.2 s 12.0 - 14.7 11/22/[address] [facility] HEMATOLOGY INR 1.00 0.85 - 1.17 11/22/[address] [facility] HEMATOLOGY PTT 34.9 s 22.9 - 35.8 11/22/[address] [facility] Brain wo contrast CT Brain wo contrast CT EXAM: CT HEAD WITHOUT CONTRAST DATE: Nov 22, 2014 05:30:00 PM INDICATION: Head trauma TECHNIQUE: Axial CT images of the head were obtained from vertex to skull base. Brain \\T\\ Bone algorithm images are provided. COMPARISON: Prior CT scan of the head dated 11/22/2014 at 1146 hours, 11/11/2014 at 1452 hours DISCUSSION: Again identified are changes of prior right frontal and parietal bur holes with evacuation of previously seen right anterior cerebral convexity subdural hemorrhage. Again identified is residual small amount of mixed density subdural hemorrhage along the right anterior frontal convexity with maximal thickness measures up to 11 mm. No interval significant change in the underlying mild mass effect over the right anterior cerebral hemispheres with partial effacement of the cerebral sulci. There is stable minimal approximately 2 mm right to left midline shift. No definite new parenchymal abnormality or new acute hemorrhage is identified. Ventricles are stable in size and configuration. Basal cisterns are preserved. No evidence of downward herniation. Remainder of the exam is unchanged. IMPRESSION: 1. Stable small residual mixed density right frontal convexity subdural hemorrhage with stable mild mass effect over the underlying right anterior cerebral hemispheres with approximately 2 mm right to left midline shift. 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 Creator:Mindy Pearson Date:Nov 22, 2014 17:52:36 Subject: Right frontoparietal convexity SDH, unchanged since prior CT dated 11/22/2014 at 11:46am. No midline shift or herniation. 11/22/2014 - - Read by: Reggie Jarquin MD Dictated Date/time: 11/22/14 17:55 Electronically Signed by: Reggie Jarquin MD 11/22/14 18:[address] [facility] ELECTROLYTES Sodium Lvl 142 meq/L 135 - 145 11/15/[address] [facility] Abdomen AP DX Abdomen AP DX INDICATION: Flank pain. PROCEDURE: Abdomen, one view. FINDINGS: The lung bases are clear. Surgical clips are present in the right upper quadrant suggesting prior cholecystectomy. No suspicious calcifications are projected over either renal fossa or along the expected course of the ureters. No suspicious calcination is are present within the pelvis. The bowel gas pattern is nonobstructive with no dilated large or small bowel. Gas is present within the rectum in a normal manner. No suspicious mass effect is present. IMPRESSION: 1. No evidence for nephrolithiasis. 2. Nonobstructive bowel gas pattern. 11/14/2014 - - Read by: Andrei Dobson MD Dictated Date/time: 11/14/14 14:13 Electronically Signed by: Andrei Dobson MD 11/14/14 14:[address] [facility] CHEM PANEL Magnesium Lvl 2.1 mg/dL 1.8 - 2.4 11/13/[address] [facility] CHEM PANEL Phosphorus 3.4 mg/dL 2.5 - 4.5 11/13/[address] [facility] ELECTROLYTES AGAP 13.3 meq/L 10.0 - 20.0 11/13/[address] [facility] ELECTROLYTES eGFR 117 mL/min/1.73m2 11/13/2014 Result Comment: The eGFR is calculated using the CKD-EPI formula. In most young, healthy individuals the eGFR will be >90 mL/min/1.73m2. The eGFR declines with age. An eGFR of 60-89 may be normal in some populations, particularly the elderly, for whom the CKD-EPI formula has not been extensively validated. Use of the eGFR is not recommended in the following populations: Individuals with unstable creatinine concentrations, including patients and those with serious co-morbid conditions. Patients with extremes in muscle mass or diet. The data above are obtained from the National Kidney Disease Education Program (NKDEP) which additionally recommends that when the eGFR is used in patients with extremes of body mass index for purposes of drug dosing, the eGFR should be multiplied by the estimated BMI. [facility] ELECTROLYTES Calcium Lvl 8.3 mg/dL 8.5 - 10.5 11/13/[address] [facility] ELECTROLYTES CO2 27 meq/L 24 - 32 11/13/[address] [facility] ELECTROLYTES Chloride Lvl 99 meq/L 95 - 109 11/13/[address] [facility] ELECTROLYTES BUN 14 mg/dL 7 - 22 11/13/[address] [facility] ELECTROLYTES Sodium Lvl 135 meq/L 135 - 145 11/13/[address] [facility] ELECTROLYTES Potassium Lvl 4.3 meq/L 3.5 - 5.1 11/13/[address] [facility] ELECTROLYTES Glucose Lvl 93 mg/dL 70 - 99 11/13/[address] [facility] ELECTROLYTES Creatinine Lvl 0.8 mg/dL 0.5 - 1.4 11/13/[address] [facility] HEMATOLOGY WBC 9.4 K/CMM 3.7 - 10.4 11/13/[address] [facility] HEMATOLOGY RBC 4.03 M/CMM 4.70 - 6.10 11/13/[address] [facility] HEMATOLOGY Hgb 13.3 g/dL 14.0 - 18.0 11/13/[address] [facility] HEMATOLOGY Platelet 342 K/CMM 133 - 450 11/13/[address] [facility] HEMATOLOGY RDW 12.9 % 11.5 - 14.5 11/13/[address] [facility] HEMATOLOGY MCHC 34.0 g/dL 32.0 - 36.0 11/13/[address] [facility] HEMATOLOGY Hct 39.2 % 42.0 - 54.0 11/13/[address] [facility] HEMATOLOGY MCH 33.0 pg 27.0 - 31.0 11/13/[address] [facility] HEMATOLOGY MCV 97.2 fL 80.0 - 94.0 11/13/[address] [facility] HEMATOLOGY MPV 6.9 fL 7.4 - 10.4 11/13/[address] [facility] HEMATOLOGY Basophils # 0.1 K/CMM 0.0 - 0.2 11/13/[address] [facility] HEMATOLOGY Eosinophils # 0.1 K/CMM 0.0 - 0.5 11/13/[address] [facility] HEMATOLOGY Segs-Bands # 6.4 K/CMM 1.5 - 8.1 11/13/[address] [facility] HEMATOLOGY Lymphocytes # 1.6 K/CMM 1.0 - 5.5 11/13/[address] [facility] HEMATOLOGY Monocytes # 1.2 K/CMM 0.0 - 0.8 11/13/[address] [facility] HEMATOLOGY Segs 67.7 % 45.0 - 75.0 11/13/[address] [facility] HEMATOLOGY Lymphocytes 17.2 % 20.0 - 40.0 11/13/[address] [facility] HEMATOLOGY Basophils 0.7 % 0.0 - 1.0 11/13/[address] [facility] HEMATOLOGY Monocytes 13.1 % 2.0 - 12.0 11/13/[address] [facility] HEMATOLOGY Eosinophils 1.3 % 0.0 - 4.0 11/13/[address] [facility] CHEM PANEL Osmolality 265 mOsm/kg 280 - 300 11/12/[address] [facility] CHEM PANEL Phosphorus 3.6 mg/dL 2.5 - 4.5 11/12/[address] [facility] CHEM PANEL Magnesium Lvl 1.6 mg/dL 1.8 - 2.4 11/12/[address] [facility] ELECTROLYTES eGFR 117 mL/min/1.73m2 11/12/2014 Result Comment: The eGFR is calculated using the CKD-EPI formula. In most young, healthy individuals the eGFR will be >90 mL/min/1.73m2. The eGFR declines with age. An eGFR of 60-89 may be normal in some populations, particularly the elderly, for whom the CKD-EPI formula has not been extensively validated. Use of the eGFR is not recommended in the following populations: Individuals with unstable creatinine concentrations, including patients and those with serious co-morbid conditions. Patients with extremes in muscle mass or diet. The data above are obtained from the National Kidney Disease Education Program (NKDEP) which additionally recommends that when the eGFR is used in patients with extremes of body mass index for purposes of drug dosing, the eGFR should be multiplied by the estimated BMI. [facility] HEMATOLOGY INR 1.07 0.85 - 1.17 11/12/[address] [facility] HEMATOLOGY PT 13.9 s 12.0 - 14.7 11/12/[address] [facility] TOXICOLOGY Valproic Acid Lvl 54 ug/ml 50 - 100 11/12/[address] [facility] URINE CHEM U Sodium 124 meq/L 11/12/[address] [facility] URINE CHEM U Osmolality 679 mOsm/kg 300 - 800 11/12/[address] [facility] BACTERIAL - SEROLOGY MRSA by PCR Negative (11/12/14 12:50 AM) 11/12/[address] [facility] ELECTROLYTES Potassium Lvl 4.1 meq/L 3.5 - 5.1 11/12/[address] [facility] ELECTROLYTES Chloride Lvl 96 meq/L 95 - 109 11/12/[address] [facility] ELECTROLYTES Sodium Lvl 128 meq/L 135 - 145 11/12/[address] [facility] ELECTROLYTES Creatinine Lvl 0.8 mg/dL 0.5 - 1.4 11/12/[address] [facility] ELECTROLYTES BUN 12 mg/dL 7 - 22 11/12/[address] [facility] ELECTROLYTES AGAP 12.1 meq/L 10.0 - 20.0 11/12/[address] [facility] ELECTROLYTES Calcium Lvl 8.5 mg/dL 8.5 - 10.5 11/12/[address] [facility] ELECTROLYTES CO2 24 meq/L 24 - 32 11/12/[address] [facility] ELECTROLYTES Glucose Lvl 94 mg/dL 70 - 99 11/12/[address] [facility] HEMATOLOGY Segs 77.4 % 45.0 - 75.0 11/12/[address] [facility] HEMATOLOGY Monocytes # 1.0 K/CMM 0.0 - 0.8 11/12/[address] [facility] HEMATOLOGY Lymphocytes # 1.0 K/CMM 1.0 - 5.5 11/12/[address] [facility] HEMATOLOGY Basophils 0.4 % 0.0 - 1.0 11/12/[address] [facility] HEMATOLOGY Monocytes 10.7 % 2.0 - 12.0 11/12/[address] [facility] HEMATOLOGY Segs-Bands # 7.1 K/CMM 1.5 - 8.1 11/12/[address] [facility] HEMATOLOGY Eosinophils 0.4 % 0.0 - 4.0 11/12/[address] [facility] HEMATOLOGY Lymphocytes 11.1 % 20.0 - 40.0 11/12/[address] [facility] HEMATOLOGY PTT 36.0 s 22.9 - 35.8 11/12/[address] [facility] HEMATOLOGY Hgb 13.2 g/dL 14.0 - 18.0 11/12/[address] [facility] HEMATOLOGY RBC 3.96 M/CMM 4.70 - 6.10 11/12/[address] [facility] HEMATOLOGY WBC 9.2 K/CMM 3.7 - 10.4 11/12/[address] [facility] HEMATOLOGY MPV 6.9 fL 7.4 - 10.4 11/12/[address] [facility] HEMATOLOGY Platelet 330 K/CMM 133 - 450 11/12/[address] [facility] HEMATOLOGY RDW 13.1 % 11.5 - 14.5 11/12/[address] [facility] HEMATOLOGY MCHC 35.4 g/dL 32.0 - 36.0 11/12/[address] [facility] HEMATOLOGY MCV 94.6 fL 80.0 - 94.0 11/12/[address] [facility] HEMATOLOGY Hct 37.5 % 42.0 - 54.0 11/12/[address] [facility] HEMATOLOGY MCH 33.4 pg 27.0 - 31.0 11/12/[address] [facility] PARATHYROID PROFILE Ca Norm WB 1.16 mMol/L 1.05 - 1.25 11/12/[address] [facility] PARATHYROID PROFILE Ca Ion WB 1.19 mMol/L 1.05 - 1.25 11/12/[address] [facility] CHEM PANEL eGFR 132 mL/min/1.73m2 11/11/2014 Result Comment: The eGFR is calculated using the CKD-EPI formula. In most young, healthy individuals the eGFR will be >90 mL/min/1.73m2. The eGFR declines with age. An eGFR of 60-89 may be normal in some populations, particularly the elderly, for whom the CKD-EPI formula has not been extensively validated. Use of the eGFR is not recommended in the following populations: Individuals with unstable creatinine concentrations, including patients and those with serious co-morbid conditions. Patients with extremes in muscle mass or diet. The data above are obtained from the National Kidney Disease Education Program (NKDEP) which additionally recommends that when the eGFR is used in patients with extremes of body mass index for purposes of drug dosing, the eGFR should be multiplied by the estimated BMI. [facility] CHEM PANEL Glucose Lvl 115 mg/dL 70 - 99 11/11/[address] [facility] CHEM PANEL BUN 10 mg/dL 7 - 22 11/11/[address] [facility] CHEM PANEL CO2 25 meq/L 24 - 32 11/11/[address] [facility] CHEM PANEL AGAP 11.6 meq/L 10.0 - 20.0 11/11/[address] [facility] CHEM PANEL Calcium Lvl 8.1 mg/dL 8.5 - 10.5 11/11/[address] [facility] CHEM PANEL Potassium Lvl 3.6 meq/L 3.5 - 5.1 11/11/[address] [facility] CHEM PANEL Creatinine Lvl 0.6 mg/dL 0.5 - 1.4 11/11/[address] [facility] CHEM PANEL Chloride Lvl 95 meq/L 95 - 109 11/11/[address] [facility] CHEM PANEL Osmolality 265 mOsm/kg 280 - 300 11/11/[address] [facility] CHEM PANEL Aldosterone 3 ng/dL 11/11/2014 Result Comment: Adult Reference Ranges for Aldosterone, LC/MS/MS: Upright 8:00-10:00 am < or=28 ng/dL Upright 4:00-6:00 pm < or=21 ng/dL Supine 8:00-10:00 am 3-16 ng/dL Test Performed at: [facility] [address] [id number] Charlette Campbell MD, PhD [facility] CHEM PANEL LDH 265 unit/L 98 - 192 11/11/[address] [facility] CHEM PANEL Procalcitonin Lvl 0.15 ng/mL 0.00 - 0.10 11/11/[address] [facility] ENDOCRINOLOGY Cortisol 14.2 ug/dl 11/11/[address] [facility] PARATHYROID PROFILE Ca Norm WB 1.08 mMol/L 1.05 - 1.25 11/11/[address] [facility] PARATHYROID PROFILE Ca Ion WB 1.08 mMol/L 1.05 - 1.25 11/11/[address] [facility] THYROID PANEL TSH 3.010 uIU/mL 0.360 - 3.740 11/11/[address] [facility] TOXICOLOGY Phenytoin Free <0.10 ug/ml 1.00 - 2.00 11/11/[address] [facility] CARDIAC ENZYMES Troponin-I null 0.00 - 0.40 11/11/[address] [facility] CHEM PANEL Phosphorus 3.5 mg/dL 2.5 - 4.5 11/11/[address] [facility] CHEM PANEL Magnesium Lvl 1.7 mg/dL 1.8 - 2.4 11/11/[address] [facility] CHEM PANEL B/C Ratio 18 6 - 25 11/11/[address] [facility] CHEM PANEL A/G Ratio 0.8 0.7 - 1.6 11/11/[address] [facility] CHEM PANEL Globulin 4.8 g/dL 2.0 - 4.0 11/11/[address] [facility] CHEM PANEL Albumin Lvl 3.7 g/dL 3.5 - 5.0 11/11/[address] [facility] CHEM PANEL AST 80 unit/L 0 - 37 11/11/[address] [facility] CHEM PANEL Alk Phos 64 unit/L 39 - 136 11/11/[address] [facility] CHEM PANEL Bili Total 0.6 mg/dL 0.2 - 1.3 11/11/[address] [facility] CHEM PANEL ALT 59 unit/L 0 - 65 11/11/[address] [facility] CHEM PANEL Total Protein 8.5 g/dL 6.4 - 8.4 11/11/[address] [facility] HEMATOLOGY Platelet 358 K/CMM 133 - 450 11/11/[address] [facility] HEMATOLOGY MPV 6.8 fL 7.4 - 10.4 11/11/[address] [facility] HEMATOLOGY RBC 4.18 M/CMM 4.70 - 6.10 11/11/[address] [facility] HEMATOLOGY MCHC 33.9 g/dL 32.0 - 36.0 11/11/[address] [facility] HEMATOLOGY Hgb 13.5 g/dL 14.0 - 18.0 11/11/[address] [facility] HEMATOLOGY Hct 39.8 % 42.0 - 54.0 11/11/[address] [facility] HEMATOLOGY MCH 32.2 pg 27.0 - 31.0 11/11/[address] [facility] HEMATOLOGY MCV 95.1 fL 80.0 - 94.0 11/11/[address] [facility] HEMATOLOGY RDW 13.0 % 11.5 - 14.5 11/11/[address] [facility] HEMATOLOGY WBC 10.5 K/CMM 3.7 - 10.4 11/11/[address] [facility] HEMATOLOGY PTT 34.4 s 22.9 - 35.8 11/11/[address] [facility] HEMATOLOGY PT 13.1 s 12.0 - 14.7 11/11/[address] [facility] HEMATOLOGY INR 0.99 0.85 - 1.17 11/11/[address] [facility] HEMATOLOGY Segs-Bands # 8.0 K/CMM 1.5 - 8.1 11/11/[address] [facility] HEMATOLOGY Lymphocytes # 1.3 K/CMM 1.0 - 5.5 11/11/[address] [facility] HEMATOLOGY Monocytes # 1.1 K/CMM 0.0 - 0.8 11/11/[address] [facility] HEMATOLOGY Basophils # 0.1 K/CMM 0.0 - 0.2 11/11/[address] [facility] HEMATOLOGY Basophils 0.6 % 0.0 - 1.0 11/11/[address] [facility] HEMATOLOGY Eosinophils 0.4 % 0.0 - 4.0 11/11/[address] [facility] HEMATOLOGY Lymphocytes 12.2 % 20.0 - 40.0 11/11/[address] [facility] HEMATOLOGY Monocytes 10.2 % 2.0 - 12.0 11/11/[address] [facility] HEMATOLOGY Plt Morph Normal (11/11/14 2:02 PM) 11/11/[address] [facility] HEMATOLOGY Segs 76.6 % 45.0 - 75.0 11/11/[address] [facility] HEMATOLOGY RBC Morph Normal (11/11/14 2:02 PM) 11/11/[address] [facility] Brain wo contrast CT Brain wo contrast CT EXAM: CT HEAD WITHOUT CONTRAST DATE: Nov 11, 2014 02:54:00 PM INDICATION: Headache with Trauma TECHNIQUE: Axial CT images of the head were obtained from vertex to skull base. Brain \\T\\ Bone algorithm images are provided. COMPARISON: Prior CT scan of the head dated 11/05/2014 DISCUSSION: Again identified are changes of prior right frontal and parietal bur holes with evacuation of previously seen right anterior cerebral convexity subdural hemorrhage. Interval removal of previously noted right parietal approach subdural drainage catheter. There appears to be reaccumulation of the small amount of subdural fluid collection along the right anterior frontal convexity in the previously seen right anterior cerebral convexity pneumocephalus. Otherwise no interval significant change in the underlying mild mass effect over the right anterior cerebral hemispheres with partial effacement of the cerebral sulci. There is stable minimal approximately 1.5 to 2 mm right to left midline shift. No definite new parenchymal abnormality or new acute hemorrhage is identified. Ventricles are stable in size and configuration. Basal cisterns are preserved. No evidence of downward herniation. Remainder of the exam is unchanged. IMPRESSION: 1. Interval removal of previously noted right parietal approach extra-axial subdural drainage catheter. 2. There appears to be reaccumulation of the small amount of subdural fluid collection along the right anterior frontal convexity in the previously seen right anterior cerebral convexity pneumocephalus. 3. Stable mild mass effect over the underlying right anterior cerebral hemispheres with approximately 1.5 to 2 mm right to left midline shift. 11/11/2014 - - Read by: Reggie Jarquin MD Dictated Date/time: 11/11/14 15:27 Electronically Signed by: Reggie Jarquin MD 11/11/14 15:[address] [facility] Pelvis AP DX Pelvis AP DX EXAM: XR PELVIS 1 VIEW DATE: November 11, 2014 at 1426 INDICATION: Pain Post Trauma COMPARISON: None. TECHNIQUE: A single AP radiograph of the pelvis DISCUSSION: No acute fracture or malalignment of the pelvis is identified. No soft tissue abnormality is identified. IMPRESSION: No bony abnormality identified. 11/11/2014 - - This report was dictated by a [employer] Salesperson/Fellow. I have personally reviewed the images as well as the Resident's interpretation and agree with the findings. Read by: Guillermo Bunn MD Resident: Guillermo Bunn MD Dictated Date/time: 11/11/14 14:30 Electronically Signed by: Gualberto Morales MD 11/11/14 15:[address] [facility] Spine lumbar 2 or 3 views DX Spine lumbar 2 or 3 views DX EXAM: XR LUMBAR SPINE 3 VIEWS DATE: November 11, 2014 at 1427 INDICATION: Pain Post Trauma . COMPARISON: None. TECHNIQUE: AP, coned lateral and lateral radiographs of the lumbar spine DISCUSSION: 2 thoracic-type, rib bearing and 5 lumbar-type, nonrib-bearing vertebral bodies are identified. Vertebral body heights and disk heights are overall maintained. Lumbar spine alignment is maintained. There is no evidence for significant degenerative change. No soft tissue abnormality is identified. IMPRESSION: No bony abnormality identified. 11/11/2014 - - This report was dictated by a [employer] Salesperson/Fellow. I have personally reviewed the images as well as the Resident's interpretation and agree with the findings. Read by: Guillermo Bunn MD Resident: Guillermo Bnun MD Dictated Date/time: 11/11/14 14:35 Electronically Signed by: Gualberto Morales MD 11/11/14 15:[address] [facility] Chest 1view DX Chest 1view DX EXAM: XR CHEST 1 VIEW DATE: November 11, 2014 at 1357 INDICATION: Chest pain COMPARISON: None TECHNIQUE: Single AP view of the chest DISCUSSION: No pulmonary or pleural based abnormality. The cardiomediastinal silhouette is normal for technique. No acute bony abnormality. IMPRESSION: No acute cardiopulmonary abnormality. 11/11/2014 - - This report was dictated by a [employer] Salesperson/Fellow. I have personally reviewed the images as well as the Resident's interpretation and agree with the findings. Read by: Guillermo Bunn MD Resident: Guillermo Bunn MD Dictated Date/time: 11/11/14 14:23 Electronically Signed by: Gualberto Morales MD 11/11/14 15:[address] [facility] ELECTROLYTES Sodium Lvl 137 meq/L 135 - 145 11/07/[address] [facility] ELECTROLYTES Sodium Lvl 136 meq/L 135 - 145 11/07/[address] [facility] TOXICOLOGY Digoxin Lvl 0.7 ng/mL 0.8 - 2.0 11/07/[address] [facility] ELECTROLYTES Sodium Lvl 135 meq/L 135 - 145 11/07/[address] [facility] CHEM PANEL Magnesium Lvl 1.8 mg/dL 1.8 - 2.4 11/06/[address] [facility] CHEM PANEL Phosphorus 3.4 mg/dL 2.5 - 4.5 11/06/[address] [facility] ELECTROLYTES AGAP 14.7 meq/L 10.0 - 20.0 11/06/[address] [facility] ELECTROLYTES eGFR 132 mL/min/1.73m2 11/06/2014 Result Comment: The eGFR is calculated using the CKD-EPI formula. In most young, healthy individuals the eGFR will be >90 mL/min/1.73m2. The eGFR declines with age. An eGFR of 60-89 may be normal in some populations, particularly the elderly, for whom the CKD-EPI formula has not been extensively validated. Use of the eGFR is not recommended in the following populations: Individuals with unstable creatinine concentrations, including patients and those with serious co-morbid conditions. Patients with extremes in muscle mass or diet. The data above are obtained from the National Kidney Disease Education Program (NKDEP) which additionally recommends that when the eGFR is used in patients with extremes of body mass index for purposes of drug dosing, the eGFR should be multiplied by the estimated BMI. [facility] ELECTROLYTES Glucose Lvl 80 mg/dL 70 - 99 11/06/[address] [facility] ELECTROLYTES Creatinine Lvl 0.6 mg/dL 0.5 - 1.4 11/06/[address] [facility] ELECTROLYTES BUN 12 mg/dL 7 - 22 11/06/[address] [facility] ELECTROLYTES CO2 24 meq/L 24 - 32 11/06/[address] [facility] ELECTROLYTES Chloride Lvl 100 meq/L 95 - 109 11/06/[address] [facility] ELECTROLYTES Potassium Lvl 4.7 meq/L 3.5 - 5.1 11/06/[address] [facility] ELECTROLYTES Calcium Lvl 8.8 mg/dL 8.5 - 10.5 11/06/[address] [facility] HEMATOLOGY Platelet 288 K/CMM 133 - 450 11/06/[address] [facility] HEMATOLOGY MPV 8.1 fL 7.4 - 10.4 11/06/[address] [facility] HEMATOLOGY Hgb 11.9 g/dL 14.0 - 18.0 11/06/[address] [facility] HEMATOLOGY Hct 34.2 % 42.0 - 54.0 11/06/[address] [facility] HEMATOLOGY RBC 3.54 M/CMM 4.70 - 6.10 11/06/[address] [facility] HEMATOLOGY MCH 33.5 pg 27.0 - 31.0 11/06/[address] [facility] HEMATOLOGY MCV 96.6 fL 80.0 - 94.0 11/06/[address] [facility] HEMATOLOGY MCHC 34.7 g/dL 32.0 - 36.0 11/06/[address] [facility] HEMATOLOGY RDW 12.8 % 11.5 - 14.5 11/06/[address] [facility] HEMATOLOGY WBC 10.8 K/CMM 3.7 - 10.4 11/06/[address] [facility] HEMATOLOGY Eosinophils # 0.1 K/CMM 0.0 - 0.5 11/06/[address] [facility] HEMATOLOGY Monocytes # 0.9 K/CMM 0.0 - 0.8 11/06/[address] [facility] HEMATOLOGY Eosinophils 0.9 % 0.0 - 4.0 11/06/[address] [facility] HEMATOLOGY Monocytes 8.6 % 2.0 - 12.0 11/06/[address] [facility] HEMATOLOGY Lymphocytes 33.4 % 20.0 - 40.0 11/06/[address] [facility] HEMATOLOGY Lymphocytes # 3.6 K/CMM 1.0 - 5.5 11/06/[address] [facility] HEMATOLOGY Segs-Bands # 6.1 K/CMM 1.5 - 8.1 11/06/[address] [facility] HEMATOLOGY Basophils 0.9 % 0.0 - 1.0 11/06/[address] [facility] HEMATOLOGY Basophils # 0.1 K/CMM 0.0 - 0.2 11/06/[address] [facility] HEMATOLOGY Segs 56.2 % 45.0 - 75.0 11/06/[address] [facility] HEMATOLOGY PTT 33.5 s 22.9 - 35.8 11/05/[address] [facility] HEMATOLOGY PT 14.3 s 12.0 - 14.7 11/05/[address] [facility] HEMATOLOGY INR 1.10 0.85 - 1.17 11/05/[address] [facility] TOXICOLOGY Valproic Acid Lvl 98 ug/ml 50 - 100 11/05/[address] [facility] CHEM PANEL eGFR 117 mL/min/1.73m2 11/05/2014 Result Comment: The eGFR is calculated using the CKD-EPI formula. In most young, healthy individuals the eGFR will be >90 mL/min/1.73m2. The eGFR declines with age. An eGFR of 60-89 may be normal in some populations, particularly the elderly, for whom the CKD-EPI formula has not been extensively validated. Use of the eGFR is not recommended in the following populations: Individuals with unstable creatinine concentrations, including patients and those with serious co-morbid conditions. Patients with extremes in muscle mass or diet. The data above are obtained from the National Kidney Disease Education Program (NKDEP) which additionally recommends that when the eGFR is used in patients with extremes of body mass index for purposes of drug dosing, the eGFR should be multiplied by the estimated BMI. [facility] CHEM PANEL Glucose Lvl 114 mg/dL 70 - 99 11/05/[address] [facility] CHEM PANEL BUN 16 mg/dL 7 - 22 11/05/[address] [facility] CHEM PANEL Calcium Lvl 8.8 mg/dL 8.5 - 10.5 11/05/[address] [facility] CHEM PANEL AGAP 15.0 meq/L 10.0 - 20.0 11/05/[address] [facility] CHEM PANEL Creatinine Lvl 0.8 mg/dL 0.5 - 1.4 11/05/[address] [facility] CHEM PANEL Potassium Lvl 4.0 meq/L 3.5 - 5.1 11/05/[address] [facility] CHEM PANEL Chloride Lvl 96 meq/L 95 - 109 11/05/[address] [facility] CHEM PANEL CO2 24 meq/L 24 - 32 11/05/[address] [facility] CHEM PANEL Magnesium Lvl 1.9 mg/dL 1.8 - 2.4 11/05/[address] [facility] CHEM PANEL Phosphorus 3.1 mg/dL 2.5 - 4.5 11/05/[address] [facility] HEMATOLOGY Monocytes # 1.2 K/CMM 0.0 - 0.8 11/05/[address] [facility] HEMATOLOGY Lymphocytes # 2.2 K/CMM 1.0 - 5.5 11/05/[address] [facility] HEMATOLOGY Segs-Bands # 14.1 K/CMM 1.5 - 8.1 11/05/[address] [facility] HEMATOLOGY Basophils 0.6 % 0.0 - 1.0 11/05/[address] [facility] HEMATOLOGY Basophils # 0.1 K/CMM 0.0 - 0.2 11/05/[address] [facility] HEMATOLOGY Lymphocytes 12.4 % 20.0 - 40.0 11/05/[address] [facility] HEMATOLOGY Segs 80.2 % 45.0 - 75.0 11/05/[address] [facility] HEMATOLOGY Monocytes 6.7 % 2.0 - 12.0 11/05/[address] [facility] HEMATOLOGY Eosinophils 0.1 % 0.0 - 4.0 11/05/[address] [facility] HEMATOLOGY RBC 3.72 M/CMM 4.70 - 6.10 11/05/[address] [facility] HEMATOLOGY WBC 17.5 K/CMM 3.7 - 10.4 11/05/[address] [facility] HEMATOLOGY Hct 35.5 % 42.0 - 54.0 11/05/[address] [facility] HEMATOLOGY Hgb 12.2 g/dL 14.0 - 18.0 11/05/[address] [facility] HEMATOLOGY RDW 13.1 % 11.5 - 14.5 11/05/[address] [facility] HEMATOLOGY MCHC 34.3 g/dL 32.0 - 36.0 11/05/[address] [facility] HEMATOLOGY MCH 32.7 pg 27.0 - 31.0 11/05/[address] [facility] HEMATOLOGY Platelet 346 K/CMM 133 - 450 11/05/[address] [facility] HEMATOLOGY MCV 95.5 fL 80.0 - 94.0 11/05/[address] [facility] HEMATOLOGY MPV 6.9 fL 7.4 - 10.4 11/05/[address] [facility] PARATHYROID PROFILE Ca Ion WB 1.05 mMol/L 1.05 - 1.25 11/05/[address] [facility] PARATHYROID PROFILE Ca Norm WB 1.08 mMol/L 1.05 - 1.25 11/05/[address] [facility] TOXICOLOGY Valproic Acid Lvl 140 ug/ml 50 - 100 11/05/[address] [facility] Brain wo contrast CT Brain wo contrast CT EXAM: CT BRAIN WITHOUT CONTRAST DATE: 11/05/2014 INDICATION: Acute cognitive change TECHNIQUE: Noncontrast axial imaging was obtained from the vertex to the skull base. COMPARISON: CT brain from 11/03/2014 FINDINGS: Right convexity subdural drainage catheter remains in place, and status post anita holes along the right convexity, with interval decrease in size of the subdural collection, measuring about 4 mm in thickness along the right frontal convexity. Residual pneumocephalus is present. Decrease in mass effect, with septum pellucidum shifted 4 mm the left as compared to 8.5 mm on prior study. Mild associated ventricular expansion. No new parenchymal abnormality or intervening hemorrhage. The basal cisterns remain patent. IMPRESSION: Interval decrease in size of the right convexity subdural collection with decrease in mass effect. 11/05/2014 - - Read by: Jignesh Harrington MD Dictated Date/time: 11/05/14 07:02 Electronically Signed by: Jignesh Harrington MD 11/05/14 07:[address] [facility] ELECTROLYTES CO2 27 meq/L 24 - 32 11/05/2014 Result Comment: Collection date/time has been modified to: 21:15:00. Previous collection date/time: 11:34:00. [facility] ELECTROLYTES Calcium Lvl 8.3 mg/dL 8.5 - 10.5 11/05/2014 Result Comment: Collection date/time has been modified to: 21:15:00. Previous collection date/time: 11:34:00. [facility] ELECTROLYTES AGAP 11.1 meq/L 10.0 - 20.0 11/05/2014 Result Comment: Collection date/time has been modified to: 21:15:00. Previous collection date/time: 11:34:00. [facility] ELECTROLYTES Potassium Lvl 4.1 meq/L 3.5 - 5.1 11/05/2014 Result Comment: Collection date/time has been modified to: 21:15:00. Previous collection date/time: 11:34:00. [facility] ELECTROLYTES Chloride Lvl 99 meq/L 95 - 109 11/05/2014 Result Comment: Collection date/time has been modified to: 21:15:00. Previous collection date/time: 11:34:00. [facility] ELECTROLYTES BUN 14 mg/dL 7 - 22 11/05/2014 Result Comment: Collection date/time has been modified to: 21:15:00. Previous collection date/time: 11:34:00. [facility] ELECTROLYTES Creatinine Lvl 0.9 mg/dL 0.5 - 1.4 11/05/2014 Result Comment: Collection date/time has been modified to: 21:15:00. Previous collection date/time: 11:34:00. [facility] ELECTROLYTES Glucose Lvl 119 mg/dL 70 - 99 11/05/2014 Result Comment: Collection date/time has been modified to: 21:15:00. Previous collection date/time: 11:34:00. [facility] ELECTROLYTES eGFR 112 mL/min/1.73m2 11/05/2014 Result Comment: The eGFR is calculated using the CKD-EPI formula. In most young, healthy individuals the eGFR will be >90 mL/min/1.73m2. The eGFR declines with age. An eGFR of 60-89 may be normal in some populations, particularly the elderly, for whom the CKD-EPI formula has not been extensively validated. Use of the eGFR is not recommended in the following populations: Individuals with unstable creatinine concentrations, including patients and those with serious co-morbid conditions. Patients with extremes in muscle mass or diet. The data above are obtained from the National Kidney Disease Education Program (NKDEP) which additionally recommends that when the eGFR is used in patients with extremes of body mass index for purposes of drug dosing, the eGFR should be multiplied by the estimated BMI. Collection date/time has been modified to: 21:15:00. Previous collection date/time: 11:34:00. [facility] CARDIAC ENZYMES Troponin-I null 0.00 - 0.40 11/04/[address] [facility] CARDIAC ENZYMES Total CK 85 unit/L 11/04/[address] [facility] CARDIAC ENZYMES Troponin-T null 0.000 - 0.100 11/04/[address] [facility] CARDIAC ENZYMES CK MB Index 0.9 0.0 - 2.5 11/04/[address] [facility] CARDIAC ENZYMES CK MB 0.8 ng/mL 0.5 - 3.6 11/04/[address] [facility] CHEM PANEL Procalcitonin Lvl null 0.00 - 0.10 11/04/[address] [facility] CHEM PANEL Osmolality 278 mOsm/kg 280 - 300 11/04/[address] [facility] URINE CHEM U Sodium 74 meq/L 11/04/[address] [facility] URINE CHEM U Osmolality 658 mOsm/kg 300 - 800 11/04/[address] [facility] CARDIAC ENZYMES Troponin-I null 0.00 - 0.40 11/04/[address] [facility] CARDIAC ENZYMES Troponin-T null 0.000 - 0.100 11/04/[address] [facility] CARDIAC ENZYMES Total CK 98 unit/L - 11/04/[address] [facility] CARDIAC ENZYMES CK MB Index 0.8 0.0 - 2.5 11/04/[address] [facility] CARDIAC ENZYMES CK MB 0.8 ng/mL 0.5 - 3.6 11/04/[address] [facility] CHEM PANEL Procalcitonin Lvl null 0.00 - 0.10 11/04/[address] [facility] CHEM PANEL Magnesium Lvl 1.8 mg/dL 1.8 - 2.4 11/04/[address] [facility] CHEM PANEL Phosphorus 3.1 mg/dL 2.5 - 4.5 11/04/[address] [facility] HEMATOLOGY WBC 12.1 K/CMM 3.7 - 10.4 11/04/[address] [facility] HEMATOLOGY Hct 37.6 % 42.0 - 54.0 11/04/[address] [facility] HEMATOLOGY Hgb 13.1 g/dL 14.0 - 18.0 11/04/[address] [facility] HEMATOLOGY MCV 95.7 fL 80.0 - 94.0 11/04/[address] [facility] HEMATOLOGY RBC 3.93 M/CMM 4.70 - 6.10 11/04/[address] [facility] HEMATOLOGY MCH 33.4 pg 27.0 - 31.0 11/04/[address] [facility] HEMATOLOGY RDW 12.8 % 11.5 - 14.5 11/04/[address] [facility] HEMATOLOGY MCHC 34.9 g/dL 32.0 - 36.0 11/04/[address] [facility] HEMATOLOGY MPV 7.1 fL 7.4 - 10.4 11/04/[address] [facility] HEMATOLOGY Platelet 362 K/CMM 133 - 450 11/04/[address] [facility] HEMATOLOGY Segs 90.6 % 45.0 - 75.0 11/04/[address] [facility] HEMATOLOGY Lymphocytes # 0.9 K/CMM 1.0 - 5.5 11/04/[address] [facility] HEMATOLOGY Monocytes # 0.2 K/CMM 0.0 - 0.8 11/04/[address] [facility] HEMATOLOGY Basophils 0.2 % 0.0 - 1.0 11/04/[address] [facility] HEMATOLOGY Eosinophils 0.2 % 0.0 - 4.0 11/04/[address] [facility] HEMATOLOGY Monocytes 1.8 % 2.0 - 12.0 11/04/[address] [facility] HEMATOLOGY Lymphocytes 7.2 % 20.0 - 40.0 11/04/[address] [facility] HEMATOLOGY Segs-Bands # 10.9 K/CMM 1.5 - 8.1 11/04/[address] [facility] PARATHYROID PROFILE Ca Norm WB 1.17 mMol/L 1.05 - 1.25 11/04/[address] [facility] PARATHYROID PROFILE Ca Ion WB 1.19 mMol/L 1.05 - 1.25 11/04/[address] [facility] TOXICOLOGY Valproic Acid Lvl 84 ug/ml 50 - 100 11/04/[address] [facility] URINE AND STOOL UA Color Light Yellow (11/04/14 1:16 AM) Yellow 11/04/[address] [facility] URINE AND STOOL UA Urobilinogen 0.2 EU/dL 0.1 - 1.0 11/04/[address] [facility] URINE AND STOOL UA Leuk Est Negative (11/04/14 1:16 AM) Negative 11/04/[address] [facility] URINE AND STOOL UA Nitrite Negative (11/04/14 1:16 AM) Negative 11/04/[address] [facility] URINE AND STOOL UA pH 7.0 5.0 - 8.0 11/04/[address] [facility] URINE AND STOOL UA Glucose Negative (11/04/14 1:16 AM) Negative 11/04/[address] [facility] URINE AND STOOL UA Spec Grav <=1.005
*NA*
(11/04/14 1:16 AM) <=1.030 11/04/[address] [facility] URINE AND STOOL UA Protein Negative (11/04/14 1:16 AM) Negative 11/04/[address] [facility] URINE AND STOOL UA Turbidity Clear (11/04/14 1:16 AM) Clear 11/04/[address] [facility] URINE AND STOOL UA Ketones Negative *NA* (11/04/14 1:16 AM) Negative 11/04/[address] [facility] URINE AND STOOL UA Bili Negative *NA* (11/04/14 1:16 AM) Negative 11/04/[address] [facility] URINE AND STOOL UA Blood Trace *ABN* (11/04/14 1:16 AM) Negative 11/04/[address] [facility] URINE AND STOOL UA Sq Epi None Seen (11/04/14 1:16 AM) Few 11/04/[address] [facility] URINE AND STOOL UA Bacteria Occasional /HPF None Seen /HPF 11/04/[address] [facility] URINE AND STOOL UA Amorph Jillian Occasional /HPF None Seen /HPF 11/04/[address] [facility] BACTERIAL - SEROLOGY MRSA by PCR Negative (11/04/14 12:45 AM) 11/04/[address] [facility] BLOOD BANK RESULTS Antibody Scrn Negative (11/03/14 7:30 PM) 11/04/[address] [facility] BLOOD BANK RESULTS ABO/Rh O POS 11/04/[address] [facility] CHEM PANEL Lactic Acid Lvl 0.8 mMol/L 0.5 - 2.2 11/04/[address] [facility] HEMATOLOGY Estimated % Lysis 13.0 % 0.0 - 7.5 11/04/2014 Result Comment: "Significant Findings called to DR. Jany Ledezma_at _11/03/2014 20:42__by CPang___.Read Back OK." Called to [id number], not their patient. [facility] HEMATOLOGY K-time 1.2 min 0.6 - 2.3 11/04/[address] [facility] HEMATOLOGY Rapid TEG Sample Type Citrated Whole Blood 11/04/[address] [facility] HEMATOLOGY ACT (TEG) 113 s 86 - 118 11/04/[address] [facility] HEMATOLOGY R-time 0.7 min 0.4 - 0.7 11/04/[address] [facility] HEMATOLOGY Angle 76 degrees 64 - 80 11/04/[address] [facility] HEMATOLOGY Split Point 0.6 min 11/04/[address] [facility] HEMATOLOGY Max Amp 59 mm 52 - 71 11/04/[address] [facility] HEMATOLOGY G-value 7.2 K d/sc 5.0 - 11.6 11/04/[address] [facility] HEMATOLOGY Basophils # 0.1 K/CMM 0.0 - 0.2 11/04/[address] [facility] HEMATOLOGY Eosinophils # 0.2 K/CMM 0.0 - 0.5 11/04/[address] [facility] TOXICOLOGY Ethanol Lvl null 11/04/[address] [facility] TOXICOLOGY Etoh (%) null 11/04/[address] [facility] HEMATOLOGY INR 1.06 0.85 - 1.17 11/04/2014 [facility] HEMATOLOGY PT 13.8 s 12.0 - 14.7 11/04/2014 [facility] HEMATOLOGY PTT 36.3 s 22.9 - 35.8 11/04/2014 [facility] Brain wo contrast CT Brain wo contrast CT CT SCAN OF THE BRAIN DATE: 11/03/2014 at 11:47 p.m. Comparison studies: 11/03/2014 at 6:15 p.m. CLINICAL INFORMATION: Bleeding. TECHNIQUE: Routine axial images of the brain were obtained in the unenhanced mode. FINDINGS: Right frontal and right parietal anita hole craniotomies have been performed with placement of a right transfrontal subdural drain. There has been marked reduction in the size of the right-sided subdural hematoma. Residual fluid and air is noted within the subdural space measuring up to 1.3 cm in thickness. Mass effect has been reduced with decrease in the midline shift from 12.5 to 8.6 mm. There are no new hemorrhages or acute infarcts. The johnson/white interfaces are well defined. IMPRESSION: 1. Postoperative changes status post drainage of right-sided subdural hematoma. The hematoma has decreased in size with improvement of mass effect and right to left midline shift. Resident preliminary report by Dr. Nishi Shannon: Interval R frontal/parietal craniotomy w/ evacuation of R SDH; surgical drain traverses along the R frontoparietal subdural fluid/air. R to L midline shift has improved (9 mm compared to 13 mm on prior exam). 11/03/2014 - - Read by: Jerry Burch MD Dictated Date/time: 11/04/14 03:27 Electronically Signed by: Jerry Burch MD 11/04/14 03:[address] [facility] CHEM PANEL Globulin 4.5 g/dL 2.0 - 4.0 11/03/2014 [facility] CHEM PANEL A/G Ratio 0.8 0.7 - 1.6 11/03/2014 [facility] CHEM PANEL AGAP 14.1 meq/L 10.0 - 20.0 11/03/2014 [facility] CHEM PANEL B/C Ratio 16 6 - 25 11/03/2014 [facility] CHEM PANEL Glucose Lvl 95 mg/dL 70 - 99 11/03/2014 [facility] CHEM PANEL eGFR 124 mL/min/1.73m2 11/03/2014 Result Comment: The eGFR is calculated using the CKD-EPI formula. In most young, healthy individuals the eGFR will be >90 mL/min/1.73m2. The eGFR declines with age. An eGFR of 60-89 may be normal in some populations, particularly the elderly, for whom the CKD-EPI formula has not been extensively validated. Use of the eGFR is not recommended in the following populations: Individuals with unstable creatinine concentrations, including patients and those with serious co-morbid conditions. Patients with extremes in muscle mass or diet. The data above are obtained from the National Kidney Disease Education Program (NKDEP) which additionally recommends that when the eGFR is used in patients with extremes of body mass index for purposes of drug dosing, the eGFR should be multiplied by the estimated BMI. [facility] CHEM PANEL Potassium Lvl 4.1 meq/L 3.5 - 5.1 11/03/2014 [facility] CHEM PANEL Chloride Lvl 94 meq/L 95 - 109 11/03/2014 [facility] CHEM PANEL Sodium Lvl 128 meq/L 135 - 145 11/03/2014 [facility] CHEM PANEL Calcium Lvl 8.8 mg/dL 8.5 - 10.5 11/03/2014 [facility] CHEM PANEL Creatinine Lvl 0.7 mg/dL 0.5 - 1.4 11/03/2014 [facility] CHEM PANEL CO2 24 meq/L 24 - 32 11/03/2014 [facility] CHEM PANEL Bili Total 0.2 mg/dL 0.2 - 1.3 11/03/2014 [facility] CHEM PANEL Alk Phos 62 unit/L 39 - 136 11/03/2014 [facility] CHEM PANEL AST 54 unit/L 0 - 37 11/03/2014 [facility] CHEM PANEL ALT 56 unit/L 0 - 65 11/03/2014 [facility] CHEM PANEL Total Protein 8.3 g/dL 6.4 - 8.4 11/03/2014 [facility] CHEM PANEL Albumin Lvl 3.8 g/dL 3.5 - 5.0 11/03/2014 [facility] CHEM PANEL BUN 11 mg/dL 7 - 22 11/03/2014 [facility] HEMATOLOGY Basophils 0.9 % 0.0 - 1.0 11/03/2014 [facility] HEMATOLOGY Segs-Bands # 7.2 K/CMM 1.5 - 8.1 11/03/2014 [facility] HEMATOLOGY Monocytes 8.1 % 2.0 - 12.0 11/03/2014 [facility] HEMATOLOGY Eosinophils 1.9 % 0.0 - 4.0 11/03/2014 [facility] HEMATOLOGY Lymphocytes # 2.0 K/CMM 1.0 - 5.5 11/03/2014 [facility] HEMATOLOGY RBC Morph Normal (11/03/14 6:09 PM) 11/03/2014 [facility] HEMATOLOGY Lymphocytes 19.3 % 20.0 - 40.0 11/03/2014 [facility] HEMATOLOGY Plt Morph Normal (11/03/14 6:09 PM) 11/03/2014 [facility] HEMATOLOGY Segs 69.8 % 45.0 - 75.0 11/03/2014 [facility] HEMATOLOGY Monocytes # 0.8 K/CMM 0.0 - 0.8 11/03/2014 [facility] Neut Vac Slight 11/03/2014 [facility] Eosinophils # 0.2 K/CMM 0.0 - 0.5 11/03/2014 [facility] Basophils # 0.1 K/CMM 0.0 - 0.2 11/03/2014 [facility] MCV 94.0 fL 80.0 - 94.0 11/03/2014 [facility] MCH 33.3 pg 27.0 - 31.0 11/03/2014 [facility] RBC 4.05 M/CMM 4.70 - 6.10 11/03/2014 [facility] Platelet 342 K/CMM 133 - 450 11/03/2014 [facility] RDW 12.9 % 11.5 - 14.5 11/03/2014 [facility] Hgb 13.5 g/dL 14.0 - 18.0 11/03/2014 [facility] MCHC 35.4 g/dL 32.0 - 36.0 11/03/2014 [facility] Hct 38.1 % 42.0 - 54.0 11/03/2014 [facility] MPV 6.6 fL 7.4 - 10.4 11/03/2014 [facility] WBC 10.2 K/CMM 3.7 - 10.4 11/03/2014 [facility] Brain CTA Brain CTA CT ANGIOGRAM OF THE HEAD DATE: 11/03/2014 at 8:18 p.m. CLINICAL INFORMATION: Bleeding. Comparison studies: CT brain 11/03/2014 at 6:15 p.m. from [facility]. TECHNIQUE: Axial images were obtained from the skull base through the vertex at 1.5 mm intervals in the enhanced mode. 3-D maximum intensity projection, MIP images were also created. FINDINGS: There is normal contrast-enhancement of the visualized bilateral common, internal, and external carotid arteries and vertebral arteries. There is no carotid bifurcation stenosis. Intracranially there is normal contrast-enhancement of the bilateral intracranial internal carotid arteries, the bilateral distal vertebral arteries, and the basilar artery. There is normal contrast enhancement of the the bilateral anterior, middle, and posterior cerebral arteries. There is normal contrast-enhancement of the bilateral superior cerebellar, left anterior/inferior cerebellar, and bilateral posterior inferior cerebellar arteries. There are no intracranial aneurysms or vascular malformations.. There is normal contrast-enhancement of the venous structures. A subdural hematoma measuring up to 2 cm is again noted along the right side convexity. There is mass effect with effacement of the right lateral ventricle, and approximately 12.5 mm of right to left midline shift. IMPRESSION: 1. Normal intracranial CT angiogram. There are no intracranial aneurysms or vascular malformations. 2. Large, 2 cm in thickness right convexity subdural hematoma with mass effect and 1.2 cm of right to left midline shift, unchanged. Resident preliminary report by Dr. Nishi Shannon: No vascular abnormality seen. Remainder of intracranial findings not significantly changed from CT head performed at 1815. 11/03/2014 - - Read by: Jerry Burch MD Dictated Date/time: 11/04/14 03:19 Electronically Signed by: Jerry Burch MD 11/04/14 03:[address] [facility] Spine cervical wo contrast CT Spine cervical wo contrast CT EXAM: CT CERVICAL SPINE WITHOUT CONTRAST DATE: Nov 03, 2014 07:56:00 PM INDICATION: Backache COMPARISON: None available TECHNIQUE: Volumetric acquisition of the cervical spine is obtained without contrast. 2mm axial, sagittal and coronal reconstructions are provided. DISCUSSION: No fracture, malalignment or other acute bony abnormality of the cervical spine is identified. No soft tissue abnormality is identified. IMPRESSION: No acute fracture or malalignment. 11/03/2014 - - This report was dictated by a [employer] Salesperson/Fellow. I have personally reviewed the images as well as the Resident's interpretation and agree with the findings. Read by: Nishi Shannon MD Resident: Nishi Shannon MD Dictated Date/time: 11/03/14 20:45 Electronically Signed by: Ramirez Calderon MD 11/03/14 22:[address] [facility] Brain wo contrast CT Brain wo contrast CT Examination: CT scan of the brain without contrast. HISTORY: Mass/Tumor COMPARISON: CT of the brain from 02/28/2006 DLP: [id number] TECHNIQUE: Multiple axial CT images of the brain were obtained without the administration of intravenous contrast. FINDINGS: There is a large, crescentic, predominantly isodense extra-axial fluid collection along the right cerebral convexity with scattered hyperattenuating components, compatible with acute to subacute subdural hematoma. There is associated mass effect with leftward shift of midline structures by 1.4 cm and subfalcine herniation. Trapping of the left lateral ventricle is seen. The visualized paranasal sinuses and mastoid air cells are well-aerated. The optic globes and retrobulbar soft tissues are unremarkable. IMPRESSION: Large, acute to subacute appearing right-sided subdural hematoma with associated 1.4 cm leftward shift of midline structures. Dr. Bentley was notified on 11/03/2014 at 6:24 p.m. SL: 16 11/03/2014 - - Read by: George Rice MD Dictated Date/time: 11/03/14 18:19 Electronically Signed by: George Rice MD 11/03/14 18:24 FINAL REPORT [facility] CHEM PANEL eGFR 124 mL/min/1.73m2 11/02/2014 Result Comment: The eGFR is calculated using the CKD-EPI formula. In most young, healthy individuals the eGFR will be >90 mL/min/1.73m2. The eGFR declines with age. An eGFR of 60-89 may be normal in some populations, particularly the elderly, for whom the CKD-EPI formula has not been extensively validated. Use of the eGFR is not recommended in the following populations: Individuals with unstable creatinine concentrations, including patients and those with serious co-morbid conditions. Patients with extremes in muscle mass or diet. The data above are obtained from the National Kidney Disease Education Program (NKDEP) which additionally recommends that when the eGFR is used in patients with extremes of body mass index for purposes of drug dosing, the eGFR should be multiplied by the estimated BMI. [facility] CHEM PANEL Alk Phos 67 unit/L 39 - 136 11/02/2014 [facility] CHEM PANEL Total Protein 7.8 g/dL 6.4 - 8.4 11/02/2014 [facility] CHEM PANEL Calcium Lvl 8.8 mg/dL 8.5 - 10.5 11/02/2014 [facility] CHEM PANEL BUN 8 mg/dL 7 - 22 11/02/2014 [facility] CHEM PANEL Glucose Lvl 73 mg/dL 70 - 99 11/02/2014 [facility] CHEM PANEL CO2 33 meq/L 24 - 32 11/02/2014 [facility] CHEM PANEL Creatinine Lvl 0.7 mg/dL 0.5 - 1.4 11/02/2014 [facility] CHEM PANEL AST 38 unit/L 0 - 37 11/02/2014 [facility] CHEM PANEL ALT 53 unit/L 0 - 65 11/02/2014 [facility] CHEM PANEL Albumin Lvl 3.7 g/dL 3.5 - 5.0 11/02/2014 [facility] CHEM PANEL Bili Total 0.2 mg/dL 0.2 - 1.3 11/02/2014 [facility] CHEM PANEL Potassium Lvl 4.0 meq/L 3.5 - 5.1 11/02/2014 [facility] CHEM PANEL Sodium Lvl 132 meq/L 135 - 145 11/02/2014 [facility] CHEM PANEL Chloride Lvl 93 meq/L 95 - 109 11/02/2014 [facility] CHEM PANEL AGAP 10.0 meq/L 10.0 - 20.0 11/02/2014 [facility] CHEM PANEL Globulin 4.1 g/dL 2.0 - 4.0 11/02/2014 [facility] CHEM PANEL B/C Ratio 11 6 - 25 11/02/2014 [facility] CHEM PANEL A/G Ratio 0.9 0.7 - 1.6 11/02/2014 [facility] HEMATOLOGY MCHC 35.9 g/dL 32.0 - 36.0 11/02/2014 [facility] HEMATOLOGY RDW 12.9 % 11.5 - 14.5 11/02/2014 [facility] HEMATOLOGY Platelet 345 K/CMM 133 - 450 11/02/2014 [facility] HEMATOLOGY MPV 6.7 fL 7.4 - 10.4 11/02/2014 [facility] HEMATOLOGY WBC 10.0 K/CMM 3.7 - 10.4 11/02/2014 [facility] HEMATOLOGY RBC 4.01 M/CMM 4.70 - 6.10 11/02/2014 [facility] MCH 33.9 pg 27.0 - 31.0 11/02/2014 [facility] HEMATOLOGY Hgb 13.6 g/dL 14.0 - 18.0 11/02/2014 [facility] HEMATOLOGY Hct 37.9 % 42.0 - 54.0 11/02/2014 [facility] HEMATOLOGY MCV 94.3 fL 80.0 - 94.0 11/02/2014 [facility] HEMATOLOGY Segs 55.2 % 45.0 - 75.0 11/02/2014 [facility] Lymphocytes 31.9 % 20.0 - 40.0 11/02/2014 [facility] HEMATOLOGY Monocytes 9.3 % 2.0 - 12.0 11/02/2014 [facility] HEMATOLOGY Eosinophils 2.9 % 0.0 - 4.0 11/02/2014 [facility] HEMATOLOGY Basophils 0.7 % 0.0 - 1.0 11/02/2014 [facility] HEMATOLOGY Segs-Bands # 5.5 K/CMM 1.5 - 8.1 11/02/2014 [facility] HEMATOLOGY Lymphocytes # 3.2 K/CMM 1.0 - 5.5 11/02/2014 [facility] HEMATOLOGY Monocytes # 0.9 K/CMM 0.0 - 0.8 11/02/2014 [facility] HEMATOLOGY Eosinophils # 0.3 K/CMM 0.0 - 0.5 11/02/2014 [facility] HEMATOLOGY Basophils # 0.1 K/CMM 0.0 - 0.2 11/02/2014 [facility] TOXICOLOGY Valproic Acid Lvl 110 ug/ml 50 - 100 11/02/2014 [facility] TOXICOLOGY Digoxin Lvl 0.7 ng/mL 0.8 - 2.0 11/02/2014 [facility] URINE AND STOOL UA Urobilinogen <=1.0 mg/dL 0.1 - 1.0 06/25/2014 [facility] URINE AND STOOL UA Nitrite Negative (06/24/14 7:50 PM) Negative 06/25/2014 [facility] URINE AND STOOL UA Sq Epi Occasional /LPF Few /LPF 06/25/2014 [facility] URINE AND STOOL UA Bili Negative *NA* (06/24/14 7:50 PM) Negative 06/25/2014 [facility] URINE AND STOOL UA Leuk Est Negative (06/24/14 7:50 PM) Negative 06/25/2014 [facility] URINE AND STOOL UA Mucus Few /LPF None Seen /LPF 06/25/2014 [facility] URINE AND STOOL UA RBC 5 /HPF 0 - 2 06/25/2014 [facility] URINE AND STOOL UA WBC 1 /HPF 0 - 5 06/25/2014 [facility] URINE AND STOOL UA [place] Yeast Few /HPF None Seen /HPF 06/25/2014 [facility] URINE AND STOOL UA pH 6.0 5.0 - 8.0 06/25/2014 [facility] URINE AND STOOL UA Spec Grav 1.026 <=1.030 06/25/2014 [facility] URINE AND STOOL UA Turbidity Clear (06/24/14 7:50 PM) Clear 06/25/2014 [facility] URINE AND STOOL UA Color Yellow *NA* (06/24/14 7:50 PM) Yellow 06/25/2014 [facility] URINE AND STOOL UA Protein Negative mg/dL Negative mg/dL 06/25/2014 [facility] URINE AND STOOL UA Blood Negative (06/24/14 7:50 PM) Negative 06/25/2014 [facility] URINE AND STOOL UA Ketones Trace mg/dL Negative mg/dL 06/25/2014 [facility] URINE AND STOOL UA Glucose Negative mg/dL Negative mg/dL 06/25/2014 [facility] CHEM PANEL Lipase Lvl 127 unit/L 73 - 393 06/25/2014 [facility] CHEM PANEL eGFR 118 mL/min/1.73m2 06/25/2014 1Result Comment: The eGFR is calculated using the CKD-EPI formula. In most young, healthy individuals the eGFR will be >90 mL/min/1.73m2. The eGFR declines with age. An eGFR of 60-89 may be normal in some populations, particularly the elderly, for whom the CKD-EPI formula has not been extensively validated. Use of the eGFR is not recommended in the following populations: Individuals with unstable creatinine concentrations, including patients and those with serious co-morbid conditions. Patients with extremes in muscle mass or diet. The data above are obtained from the National Kidney Disease Education Program (NKDEP) which additionally recommends that when the eGFR is used in patients with extremes of body mass index for purposes of drug dosing, the eGFR should be multiplied by the estimated BMI. [facility] CHEM PANEL Bili Total 0.3 mg/dL 0.2 - 1.3 06/25/2014 [facility] CHEM PANEL Alk Phos 80 unit/L 39 - 136 06/25/2014 [facility] CHEM PANEL CO2 27 meq/L 24 - 32 06/25/2014 [facility] CHEM PANEL Total Protein 8.6 g/dL 6.4 - 8.4 06/25/2014 [facility] CHEM PANEL BUN 11 mg/dL 7 - 22 06/25/2014 [facility] CHEM PANEL Glucose Lvl 80 mg/dL 70 - 99 06/25/2014 2Interpretive Data: Adult reference range values reflect the clinical guidelines of the [place] [employer]. [facility] CHEM PANEL Creatinine Lvl 0.8 mg/dL 0.5 - 1.4 06/25/2014 [facility] CHEM PANEL ALT 22 unit/L 0 - 65 06/25/2014 [facility] CHEM PANEL Albumin Lvl 4.0 g/dL 3.5 - 5.0 06/25/2014 [facility] CHEM PANEL AST 15 unit/L 0 - 37 06/25/2014 [facility] CHEM PANEL Potassium Lvl 4.0 meq/L 3.5 - 5.1 06/25/2014 [facility] CHEM PANEL Calcium Lvl 9.5 mg/dL 8.5 - 10.5 06/25/2014 [facility] CHEM PANEL Chloride Lvl 92 meq/L 95 - 109 06/25/2014 [facility] CHEM PANEL Sodium Lvl 130 meq/L 135 - 145 06/25/2014 [facility] CHEM PANEL AGAP 15.0 meq/L 10.0 - 20.0 06/25/2014 [facility] CHEM PANEL Globulin 4.6 g/dL 2.0 - 4.0 06/25/2014 [facility] CHEM PANEL A/G Ratio 0.9 0.7 - 1.6 06/25/2014 [facility] CHEM PANEL B/C Ratio 14 6 - 25 06/25/2014 [facility] CHEM PANEL Amylase Lvl 34 unit/L 25 - 115 06/25/2014 [facility] HEMATOLOGY Segs 63.4 % 45.0 - 75.0 06/25/2014 [facility] HEMATOLOGY Lymphocytes 25.1 % 20.0 - 40.0 06/25/2014 [facility] HEMATOLOGY Monocytes 9.4 % 2.0 - 12.0 06/25/2014 [facility] HEMATOLOGY Basophils # 0.1 K/CMM 0.0 - 0.2 06/25/2014 [facility] HEMATOLOGY Eosinophils # 0.2 K/CMM 0.0 - 0.5 06/25/2014 [facility] HEMATOLOGY Monocytes # 1.0 K/CMM 0.0 - 0.8 06/25/2014 [facility] HEMATOLOGY Lymphocytes # 2.7 K/CMM 1.0 - 5.5 06/25/2014 [facility] HEMATOLOGY Segs-Bands # 6.9 K/CMM 1.5 - 8.1 06/25/2014 [facility] HEMATOLOGY Basophils 0.7 % 0.0 - 1.0 06/25/2014 [facility] HEMATOLOGY Eosinophils 1.4 % 0.0 - 4.0 06/25/2014 [facility] HEMATOLOGY MPV 6.7 fL 7.4 - 10.4 06/25/2014 [facility] HEMATOLOGY Platelet 377 K/CMM 133 - 450 06/25/2014 [facility] HEMATOLOGY RDW 13.1 % 11.5 - 14.5 06/25/2014 [facility] HEMATOLOGY MCHC 35.4 g/dL 32.0 - 36.0 06/25/2014 [facility] MCH 32.9 pg 27.0 - 31.0 06/25/2014 [facility] Hct 40.1 % 42.0 - 54.0 06/25/2014 [facility] Hgb 14.2 g/dL 14.0 - 18.0 06/25/2014 [facility] RBC 4.33 M/CMM 4.70 - 6.10 06/25/2014 [facility] WBC 10.8 K/CMM 3.7 - 10.4 06/25/2014 [facility] MCV 92.8 fL 80.0 - 94.0 06/25/2014 [facility] IMMUNOLOGY CDC HIV 4th GEN Negative (06/24/14 7:46 PM) Negative 06/25/2014 [facility] Abdomen/Pelvis wo IV contrast CT Abdomen/Pelvis wo IV contrast CT I. CT SCAN of the ABDOMEN WITHOUT CONTRAST II. CT SCAN of the PELVIS WITHOUT CONTRAST (Renal stone protocol) HISTORY: Abdominal pain, Flank Pain The examination was performed from the emergency department. Comparison is made to 02/28/2013. I. CT SCAN OF THE ABDOMEN WITHOUT CONTRAST (Renal stone protocol). Technique: Helical CT images at 5 mm intervals were obtained from the domes of the diaphragms to the iliac crests. Neither oral or intravenous contrast was administered (renal stone protocol). II. CT SCAN OF THE PELVIS WITHOUT CONTRAST (Renal stone protocol). Technique: Helical CT images at 5 mm intervals were obtained from the iliac crests to the pubic symphysis. Neither oral or intravenous contrast was administered. Sagittal and coronal reconstructions were provided. FINDINGS: There is no free intraperitoneal gas, abscess, focal inflammation, or other evidence of an acute intra-abdominal process. No urinary tract calculi are seen. There is no hydronephrosis. There is a 7 mm medial exophytic cyst arising from the upper pole the right kidney. No other focal lesions are seen within the kidneys on this limited noncontrast study. The kidneys are normal in size. The liver, spleen, pancreas, and adrenal glands are normal in appearance. Evaluation of the solid organs is limited due to lack of intravenous contrast. The gastrointestinal structures are unremarkable. A normal appendix was visualized. There is no evidence of appendicitis. Evaluation of the gastrointestinal structures is limited due to lack of oral contrast. No ascites or fluid collections are seen. No mass or adenopathy is seen within the abdomen. Status post cholecystectomy. Surgical clips are noted in the right upper quadrant. The visualized lung bases are clear. There are no pleural effusions. The heart is normal in size. There is no pericardial effusion. The osseous structures are unremarkable. CONCLUSION: 1. Negative noncontrast CT scan of the abdomen and pelvis. There is no evidence of an acute or significant focal intra-abdominal process. There are no urinary tract calculi or hydronephrosis. 2. Status post cholecystectomy. 3. Tiny right renal cyst is noted, stable from 02/28/2013. Coding: Abdomen/Pelvis wo contrast CT SL: 13 Markos Remy M.D. 06/24/2014 - - Read by: Markos Remy MD Dictated Date/time: 06/24/14 21:57 Electronically Signed by: Markos Remy MD 06/24/14 22:01 FINAL REPORT [facility] URINALYSIS UA Color Ltyellow 03/01/2013 [facility] URINALYSIS UA Urobilinogen <=1.0 mg/dL 0.1 - 1.0 03/01/2013 [facility] URINALYSIS UA Nitrite Negative (02/28/2013 22:35:00) Negative 03/01/2013 Normal [facility] URINALYSIS UA Leuk Est Negative (02/28/2013 22:35:00) Negative 03/01/2013 Normal [facility] URINALYSIS UA Sq Epi Occasional /LPF Few 03/01/2013 [facility] URINALYSIS UA RBC null 0 - 2 03/01/2013 Normal [facility] URINALYSIS UA Turbidity Clear (02/28/2013 22:35:00) Clear 03/01/2013 Normal [facility] URINALYSIS UA Spec Grav 1.014 <=1.030 03/01/2013 Normal [facility] URINALYSIS UA pH 7.0 5.0 - 8.0 03/01/2013 Normal [facility] URINALYSIS UA Protein Negative mg/dL Negative 03/01/2013 Normal [facility] URINALYSIS UA Glucose 50 mg/dL Negative 03/01/2013 ABN [facility] URINALYSIS UA Ketones Trace mg/dL Negative 03/01/2013 ABN [facility] URINALYSIS UA Bili Negative *NA* (02/28/2013 22:35:00) Negative 03/01/2013 [facility] URINALYSIS UA Blood Negative (02/28/2013 22:35:00) Negative 03/01/2013 Normal [facility] CHEMISTRY B/C Ratio 17 6 - 25 03/01/2013 Normal [facility] CHEMISTRY AGAP 13.9 meq/L 10.0 - 20.0 03/01/2013 Normal [facility] CHEMISTRY A/G Ratio 0.9 0.7 - 1.6 03/01/2013 Normal [facility] CHEMISTRY Globulin 4.3 g/dL 2.0 - 4.0 03/01/2013 HI [facility] CHEMISTRY eGFR 126 mL/min/1.73m2 03/01/2013 1Result Comment: The eGFR is calculated using the CKD-EPI formula. In most young, healthy individuals the eGFR will be >90 mL/min/1.73m2. The eGFR declines with age. An eGFR of 60-89 may be normal in some populations, particularly the elderly, for whom the CKD-EPI formula has not been extensively validated. Use of the eGFR is not recommended in the following populations: Individuals with unstable creatinine concentrations, including patients and those with serious co-morbid conditions. Patients with extremes in muscle mass or diet. The data above are obtained from the National Kidney Disease Education Program (NKDEP) which additionally recommends that when the eGFR is used in patients with extremes of body mass index for purposes of drug dosing, the eGFR should be multiplied by the estimated BMI. [facility] CHEMISTRY Glucose Lvl 137 mg/dL 70 - 99 03/01/2013 [place] 2Interpretive Data: Adult reference range values reflect the clinical guidelines of the [place] [employer]. [facility] CHEMISTRY Sodium Lvl 136 meq/L 135 - 145 03/01/2013 Normal [facility] CHEMISTRY Potassium Lvl 3.9 meq/L 3.5 - 5.1 03/01/2013 Normal [facility] CHEMISTRY Calcium Lvl 9.4 mg/dL 8.5 - 10.5 03/01/2013 Normal [facility] CHEMISTRY Creatinine Lvl 0.7 mg/dL 0.5 - 1.4 03/01/2013 Normal [facility] CHEMISTRY BUN 12 mg/dL 7 - 22 03/01/2013 Normal [facility] CHEMISTRY Bili Total 0.2 mg/dL 0.2 - 1.3 03/01/2013 Normal [facility] CHEMISTRY CO2 28 meq/L 24 - 32 03/01/2013 Normal [facility] CHEMISTRY Chloride Lvl 98 meq/L 95 - 109 03/01/2013 Normal [facility] CHEMISTRY Total Protein 8.2 g/dL 6.4 - 8.4 03/01/2013 Normal [facility] CHEMISTRY Albumin Lvl 3.9 g/dL 3.5 - 5.0 03/01/2013 Normal [facility] CHEMISTRY Alk Phos 95 unit/L 39 - 136 03/01/2013 Normal [facility] CHEMISTRY ALANINE AMINOTRANSFERASE 52 unit/L 0 - 65 03/01/2013 [facility] CHEMISTRY ASPARTATE TRANSAMINASE 33 unit/L 0 - 37 03/01/2013 Normal [facility] HEMATOLOGY Basophils # 0.0 K/CMM 0.0 - 0.2 03/01/2013 [facility] HEMATOLOGY Eosinophils # 0.4 K/CMM 0.0 - 0.5 03/01/2013 [facility] HEMATOLOGY Lymphocytes # 2.6 K/CMM 1.0 - 5.5 03/01/2013 Normal [facility] HEMATOLOGY Segs-Bands # 6.2 K/CMM 1.5 - 8.1 03/01/2013 Normal [facility] HEMATOLOGY Basophils 0.4 % 0.0 - 1.0 03/01/2013 [facility] HEMATOLOGY Eosinophils 4.2 % 0.0 - 4.0 03/01/2013 [facility] HEMATOLOGY Monocytes # 1.2 K/CMM 0.0 - 0.8 03/01/2013 [facility] HEMATOLOGY Lymphocytes 24.5 % 20.0 - 40.0 03/01/2013 [facility] HEMATOLOGY Monocytes 11.1 % 2.0 - 12.0 03/01/2013 Normal [facility] HEMATOLOGY Segs 59.8 % 45.0 - 75.0 03/01/2013 Normal [facility] HEMATOLOGY MCH 31.5 pg 27.0 - 31.0 03/01/2013 HI [facility] HEMATOLOGY MPV 7.5 fL 7.4 - 10.4 03/01/2013 Normal [facility] HEMATOLOGY Platelet 356 K/CMM 133 - 450 03/01/2013 Normal [facility] HEMATOLOGY RDW 13.8 % 11.5 - 14.5 03/01/2013 Normal [facility] HEMATOLOGY MCHC 33.7 g/dL 32.0 - 36.0 03/01/2013 Normal [facility] HEMATOLOGY MCV 93.4 fL 80.0 - 94.0 03/01/2013 Normal [facility] HEMATOLOGY Hct 40.4 % 42.0 - 54.0 03/01/2013 LOW [facility] HEMATOLOGY Hgb 13.6 g/dL 14.0 - 18.0 03/01/2013 LOW [facility] HEMATOLOGY RBC X 10x6 4.32 M/CMM 4.70 - 6.10 03/01/2013 LOW [facility] HEMATOLOGY WBC X 10x3 10.4 K/CMM 3.7 - 10.4 03/01/2013 Normal [facility] Abdomen/Pelvis wo contrast CT Abdomen/Pelvis wo contrast CT NAME: GUSTAVO ROBERSON : 1980 SEX: M Ordering Physician: Chai Devi Abdomen/Pelvis wo contrast CT : Feb 28, 2013 11:37:00 PM. CLINICAL INDICATION: Acute abdominal pain. Comparison Examination: None. FINDINGS: The lung bases are clear without significant pleural effusion bilaterally. Fatty change is seen about the liver. No focal liver abnormality identified. The patient is status post cholecystectomy. The spleen is unremarkable. No calcifications identified within either kidney or along the course of either collecting system. No pelvocaliectasis or ureterectasis bilaterally. The kidneys are unremarkable bilaterally. The adrenals and pancreas are unremarkable. The appendix is unremarkable. No abdominal or pelvic adenopathy. Small amount of left internal iliac artery calcification. No enlargement of prostate gland or seminal vesicles. The bladder is unremarkable. No bowel abnormality in the abdomen or pelvis. No abnormal fluid collection identified in the abdomen or pelvis. CONCLUSIONS: 1. Status post cholecystectomy. 2. Fatty change about the liver. 3. Small amount of left internal iliac artery calcification. SL: 14 02/28/2013 - - Read by: True Wilkerson Dictated Date/time: 03/01/13 00:31 Electronically Signed by: True Wilkerson MD 03/01/13 00:37 FINAL REPORT [facility] Vital Signs Vital Sign Value Date Comments Source Temperature Oral (F) 98.1 F 11/24/[address] [facility] Heart Rate 70 11/24/[address] [facility] Respitory Rate 16 11/24/[address] [facility] Systolic (mm Hg) 95 11/24/[address] [facility] Diastolic (mm Hg) 61 11/24/[address] [facility] Systolic (mm Hg) 119 11/24/[address] [facility] Diastolic (mm Hg) 71 11/24/[address] [facility] Respitory Rate 16 11/24/[address] [facility] Heart Rate 66 11/24/[address] [facility] Temperature Oral (F) 97.8 F 11/24/2014 [facility] Systolic (mm Hg) 99 11/24/2014 [facility] Diastolic (mm Hg) 62 11/24/[address] [facility] Heart Rate 88 11/24/2014 [facility] Respitory Rate 16 11/24/[address] [facility] Temperature Oral (F) 97.9 F 11/24/[address] [facility] BMI Calculated 25.05 11/23/[address] [facility] Weight 70.4 11/23/[address] [facility] Height 167.64 cm 11/23/[address] [facility] Weight 70 11/22/[address] [facility] Heart Rate 74 11/15/[address] [facility] Respitory Rate 20 11/15/2014 [facility] Systolic (mm Hg) 93 11/15/2014 [facility] Diastolic (mm Hg) 55 11/15/[address] [facility] Temperature Oral (F) 98.5 F 11/15/[address] [facility] Heart Rate 76 11/15/[address] [facility] Temperature Oral (F) 98.6 F 11/15/2014 [facility] Respitory Rate 18 11/15/2014 [facility] Systolic (mm Hg) 91 11/15/2014 [facility] Diastolic (mm Hg) 61 11/15/2014 [facility] Systolic (mm Hg) 89 11/15/2014 [facility] Diastolic (mm Hg) 54 11/15/[address] [facility] Respitory Rate 18 11/15/[address] [facility] Temperature Oral (F) 98.5 F 11/15/[address] [facility] Heart Rate 72 11/15/[address] [facility] BMI Calculated 21.33 11/12/[address] [facility] Weight 61.8 11/12/[address] [facility] Height 170.2 cm 11/12/[address] [facility] Weight 61.8 11/12/[address] [facility] Weight 61.8 11/12/2014 [facility] Systolic (mm Hg) 121 11/07/2014 [facility] Diastolic (mm Hg) 73 11/07/[address] [facility] Temperature Oral (F) 98.3 F 11/07/2014 [facility] Respitory Rate 18 11/07/2014 [facility] Respitory Rate 18 11/07/[address] [facility] Systolic (mm Hg) 113 11/07/[address] [facility] Diastolic (mm Hg) 69 11/07/[address] [facility] Temperature Oral (F) 98.9 F 11/07/[address] [facility] Heart Rate 88 11/07/[address] [facility] Respitory Rate 18 11/07/[address] [facility] Heart Rate 96 11/07/[address] [facility] Systolic (mm Hg) 109 11/07/[address] [facility] Diastolic (mm Hg) 63 11/07/[address] [facility] Temperature Oral (F) 97.9 F 11/07/[address] [facility] Heart Rate 84 11/06/[address] [facility] Height 170.18 cm 11/04/[address] [facility] Weight 68.182 11/04/[address] [facility] BMI Calculated 23.54 11/04/[address] [facility] Respitory Rate 18 11/03/2014 [facility] Temperature Oral (F) 98.5 F 11/03/2014 [facility] Heart Rate 93 11/03/2014 [facility] Systolic (mm Hg) 124 11/03/2014 [facility] Diastolic (mm Hg) 74 11/03/2014 [facility] Temperature Oral (F) 97.6 F 11/03/2014 [facility] Respitory Rate 18 11/03/2014 [facility] Weight 68.182 11/03/2014 [facility] BMI Calculated 25.8 11/03/2014 [facility] Height 162.56 cm 11/03/2014 [facility] Systolic (mm Hg) 122 11/03/2014 [facility] Diastolic (mm Hg) 84 11/03/2014 [facility] Heart Rate 89 11/03/2014 [facility] Respitory Rate 18 11/02/2014 [facility] Systolic (mm Hg) 121 11/02/2014 [facility] Diastolic (mm Hg) 81 11/02/2014 [facility] Temperature Oral (F) 97.9 F 11/02/2014 [facility] Heart Rate 90 11/02/2014 [facility] Respitory Rate 18 11/02/2014 [facility] Systolic (mm Hg) 118 11/02/2014 [facility] Diastolic (mm Hg) 65 11/02/2014 [facility] Temperature Oral (F) 98.0 F 11/02/2014 [facility] Heart Rate 90 11/02/2014 [facility] Systolic (mm Hg) 125 11/02/2014 [facility] Diastolic (mm Hg) 85 11/02/2014 [facility] Respitory Rate 18 11/02/2014 [facility] Heart Rate 102 11/02/2014 [facility] BMI Calculated 24.64 11/02/2014 [facility] Temperature Oral (F) 98.4 F 11/02/2014 [facility] Weight 71.364 11/02/2014 [facility] Height 170.18 cm 11/02/2014 [facility] Respitory Rate 16 06/25/2014 [facility] Systolic (mm Hg) 126 06/25/2014 [facility] Diastolic (mm Hg) 80 06/25/2014 [facility] Heart Rate 89 06/25/2014 [facility] Temperature Oral (F) 98 F 06/25/2014 [facility] Heart Rate 102 06/25/2014 [facility] Temperature Oral (F) 97.9 F 06/25/2014 [facility] Respitory Rate 20 06/25/2014 [facility] Systolic (mm Hg) 150 06/25/2014 [facility] Diastolic (mm Hg) 96 06/25/2014 [facility] Respitory Rate 18 06/24/2014 [facility] Temperature Oral (F) 99.1 F 06/24/2014 [facility] Heart Rate 117 06/24/2014 [facility] Systolic (mm Hg) 142 06/24/2014 [facility] Diastolic (mm Hg) 93 06/24/2014 [facility] Weight 70.455 06/24/2014 [facility] Height 162.56 cm 06/24/2014 [facility] BMI Calculated 26.66 06/24/2014 [facility] Respitory Rate 16 03/01/2013 [facility] Diastolic (mm Hg) 55 03/01/2013 [facility] Systolic (mm Hg) 113 03/01/2013 [facility] Temperature Oral (F) 97.9 F 03/01/2013 [facility] Diastolic (mm Hg) 52 03/01/2013 [facility] Systolic (mm Hg) 101 03/01/2013 [facility] Systolic (mm Hg) 113 03/01/2013 [facility] Respitory Rate 16 03/01/2013 [facility] Diastolic (mm Hg) 58 03/01/2013 [facility] Respitory Rate 18 03/01/2013 [facility] Temperature Oral (F) 98.0 F 03/01/2013 [facility] Weight 72.727 03/01/2013 [facility] Height 162.56 cm 03/01/2013 [facility] Temperature Oral (F) 97.7 F 03/01/2013 [facility] Heart Rate 93 03/01/2013 [facility] Encounters Location Location Details Encounter Type Encounter Number Reason For Visit Attending Provider ADM Date DC Date Status Source [facility] Emergency [id number] ABDOMINAL PAIN CHAI DEVI 02/28/2013 03/01/2013 Active [facility] [id number] Bola Surekha 06/24/2014 06/25/2014 [facility] [id number] Moses RigginsMitra 11/01/2014 11/02/2014 [facility] [id number] Jeremy Toussaintsuf 11/03/2014 11/04/2014 [facility] Inpatient [id number] Neto Medellinh 11/04/2014 11/07/2014 [facility] Inpatient [id number] Bahman Orient 11/11/2014 11/15/2014 [facility] Inpatient [id number] Non Physician 11/22/2014 11/24/[address] [facility] Procedures Procedure Code Date Perfomer Comments Source Gallbladder stone removal [id number] 07/18/2013 [facility] Gallbladder stone removal [id number] 07/18/[address] [facility] Cholecystectomy [id number] [facility] Cholecystectomy [id number] [facility]
--- OUTSIDE RECORDS SUMMARY | 2018-05-03 10:31 | XMS REPORT | CCD ---
Author Author Auto Generated Organization [facility] Address Unknown Phone Unavailable Care Team Providers Care Dandy Tender Name Role Phone Chai Devi CP Allergies, Adverse Reactions, Alerts Substance Reaction Status HYDROcodone-pseudoephedrine Active simvastatin Active Problem List Condition Effective Dates Status Diabetes mellitus Resolved Seizure Resolved Medications Medication Instructions Start Date End Date Status morphine Sulfate 4 mg, Route: IVP, Drug form: INJ, 02/28/2013 02/28/2013 Completed ONCE, Dosing Weight 72.727, kg, Priority: STAT, Start date: 02/28/13 21:33:00, Stop date: 02/28/13 21:33:00 ondansetron 4 mg, Route: IVP, Drug form: INJ, 02/28/2013 02/28/2013 Completed ONCE, Dosing Weight 72.727, kg, Priority: STAT, Start date: 02/28/13 21:33:00, Stop date: 02/28/13 21:33:00 Sodium Chloride 0.9% 1,000 mL, Rate: 1,000 ml/hr, Infuse 02/28/2013 02/28/2013 Completed (Bolus) IV 1000 mL over: 1 hr, Route: IV, Dosing Weight 72.727 kg, Total Volume: 1,000, Priority: STAT, Start date: 02/28/13 21:33:00, Duration: 1 doses or times, Stop date: 02/28/13 22:32:00, Bolus Dose Bolus Dose Bentyl 20 mg oral 20 mg, 1 tab, PO, QID, PRN, 30 tab, 03/01/2013 Ordered tablet abdominal pain, Substitution Allowed Vital Signs Most recent to oldest [Reference Range]: 1 2 3 Height 162.56 cm (02/28/2013 18:40:00) Temperature Oral [96.4-99.1 DegF] 97.9 DegF (03/01/2013 01:43:00) 98.0 DegF (02/28/2013 22:52:00) 97.7 DegF (02/28/2013 18:40:00) Systolic Blood Pressure [90-140 mmHg] 113 mmHg (03/01/2013 01:43:00) 101 mmHg (03/01/2013 00:48:00) 113 mmHg (03/01/2013 00:00:00) Diastolic Blood Pressure [60-90 mmHg] 55 mmHg *LOW* (03/01/2013 01:43:00) 52 mmHg *LOW* (03/01/2013 00:48:00) 58 mmHg *LOW* (03/01/2013 00:00:00) Respiratory Rate [14-20 BRMIN] 16 BRMIN (03/01/2013 01:43:00) 16 BRMIN (03/01/2013 00:00:00) 18 BRMIN (02/28/2013 22:52:00) Peripheral Pulse Rate [60-100 bpm] 93 bpm (02/28/2013 18:40:00) Weight 72.727 kg (02/28/2013 18:40:00) Results URINALYSIS Most recent to oldest [Reference Range]: 1 UA Turbidity [Clear] Clear (02/28/2013 22:35:00) UA Color Ltyellow *NA* (02/28/2013 22:35:00) UA pH [5.0-8.0] 7.0 (02/28/2013 22:35:00) UA Spec Grav [<=1.030] 1.014 (02/28/2013 22:35:00) UA Glucose [Negative mg/dL] 50 mg/dL *ABN* (02/28/2013 22:35:00) UA Blood [Negative] Negative (02/28/2013 22:35:00) UA Ketones [Negative mg/dL] Trace mg/dL *ABN* (02/28/2013 22:35:00) UA Protein [Negative mg/dL] Negative mg/dL (02/28/2013 22:35:00) UA Urobilinogen [0.1-1.0 mg/dL] <=1.0 mg/dL *NA* (02/28/2013 22:35:00) UA Bili [Negative] Negative *NA* (02/28/2013 22:35:00) UA Leuk Est [Negative] Negative (02/28/2013 22:35:00) UA Nitrite [Negative] Negative (02/28/2013 22:35:00) UA RBC [0-2 /HPF] <1 /HPF (02/28/2013 22:35:00) UA Sq Epi [Few /LPF] Occasional /LPF *NA* (02/28/2013 22:35:00) CHEMISTRY Most recent to oldest [Reference Range]: 1 Sodium Lvl [135-145 mEq/L] 136 mEq/L (02/28/2013 21:40:00) Potassium Lvl [3.5-5.1 mEq/L] 3.9 mEq/L (02/28/2013:40:00) Chloride Lvl [95-109 mEq/L] 98 mEq/L (02/28/2013:40:00) CO2 [24-32 mEq/L] 28 mEq/L (02/28/2013:40:00) AGAP [10.0-20.0 mEq/L] 13.9 mEq/L (02/28/2013 21:40:00) Creatinine Lvl [0.5-1.4 mg/dL] 0.7 mg/dL (02/28/2013 21:40:00) eGFR 126 mL/min/1.73m2 1 *NA* (02/28/2013:40:00) BUN [7-22 mg/dL] 12 mg/dL (02/28/2013 21:40:00) B/C Ratio [6-25] 17 (02/28/2013 21:40:00) Glucose Lvl [70-99 mg/dL] 137 mg/dL 2 *HI* (02/28/2013 21:40:00) Total Protein [6.4-8.4 g/dL] 8.2 g/dL (02/28/2013 21:40:00) Albumin Lvl [3.5-5.0 g/dL] 3.9 g/dL (02/28/2013 21:40:00) Globulin [2.0-4.0 g/dL] 4.3 g/dL *HI* (02/28/2013 21:40:00) A/G Ratio [0.7-1.6] 0.9 (02/28/2013:40:00) Calcium Lvl [8.5-10.5 mg/dL] 9.4 mg/dL (02/28/2013:40:00) ALT [0-65 unit/L] 52 unit/L (02/28/2013:40:00) AST [0-37 unit/L] 33 unit/L (02/28/2013:40:00) Alk Phos [39-136 unit/L] 95 unit/L (02/28/2013:40:00) Bili Total [0.2-1.3 mg/dL] 0.2 mg/dL (02/28/2013:40:00) 1Result Comment: The eGFR is calculated using [...] from the National Kid[employer] Education Program ( NKDEP) which additionally recommends that when the eGFR is used in patients with extremes of body mass index for purposes of drug dosing, the eGFR should be mul tiplied by the estimated BMI. 2Interpretive Data: Adult reference range values reflect the clinical guidelines of the [place] [employer]. HEMATOLOGY Most recent to oldest [Reference Range]: 1 WBC [3.7-10.4 K/CMM] 10.4 K/CMM (02/28/2013:40:00) RBC [4.70-6.10 M/CMM] 4.32 M/CMM *LOW* (02/28/2013:40:00) Hgb [14.0-18.0 g/dL] 13.6 g/dL *LOW* (02/28/2013:40:00) Hct [42.0-54.0 %] 40.4 % *LOW* (02/28/2013:40:00) MCV [80.0-94.0 fL] 93.4 fL (02/28/2013 21:40:00) MCH [27.0-31.0 pg] 31.5 pg *HI* (02/28/2013 21:40:00) MCHC [32.0-36.0 g/dL] 33.7 g/dL (02/28/2013 21:40:00) RDW [11.5-14.5 %] 13.8 % (02/28/2013 21:40:00) Platelet [133-450 K/CMM] 356 K/CMM (02/28/2013 21:40:00) MPV [7.4-10.4 fL] 7.5 fL (02/28/2013 21:40:00) Segs [45.0-75.0 %] 59.8 % (02/28/2013 21:40:00) Lymphocytes [20.0-40.0 %] 24.5 % (02/28/2013 21:40:00) Monocytes [2.0-12.0 %] 11.1 % (02/28/2013 21:40:00) Eosinophils [0.0-4.0 %] 4.2 % *HI* (02/28/2013 21:40:00) Basophils [0.0-1.0 %] 0.4 % (02/28/2013:40:00) Segs-Bands # [1.5-8.1 K/CMM] 6.2 K/CMM (02/28/2013 21:40:00) Lymphocytes # [1.0-5.5 K/CMM] 2.6 K/CMM (02/28/2013 21:40:00) Monocytes # [0.0-0.8 K/CMM] 1.2 K/CMM *HI* (02/28/2013 21:40:00) Eosinophils # [0.0-0.5 K/CMM] 0.4 K/CMM (02/28/2013 21:40:00) Basophils # [0.0-0.2 K/CMM] 0.0 K/CMM (02/28/2013 21:40:00)
--- OUTSIDE RECORDS SUMMARY | 2018-05-03 10:31 | XMS REPORT | Summary of Care ---
Author Author [facility] Organization [facility] Address Unknown Phone Unavailable Encounter IMANI Farooq(KARLA) [id number] Date(s): 11/03/14 - 11/07/14 [facility] [address] [employer] provided by [facility] [place] [address]- Discharge Disposition: Home Attending Physician: Rafael Whiting MD Admitting Physician: Neto Snyder MD Referring Physician: Jeremy Bentley DO Vital Signs 1 2 3 Most recent to oldest [Reference Range]: 170.18 cm (11/03/14 7:30 PM) Height 1 2 3 Most recent to oldest [Reference Range]: 98.3 DegF (11/07/14 3:25 PM) 98.9 DegF (11/07/14 11:52 AM) 97.9 DegF (11/07/14 7:15 AM) Temperature Oral [96.4-99.1 DegF] 1 2 3 Most recent to oldest [Reference Range]: 121/73 mmHg (11/07/14 3:25 PM) 113/69 mmHg (11/07/14 11:52 AM) 109/63 mmHg (11/07/14 7:15 AM) Blood Pressure [90-140/60-90 mmHg] 1 2 3 Most recent to oldest [Reference Range]: 18 BRMIN (11/07/14 3:25 PM) 18 BRMIN (11/07/14 11:52 AM) 18 BRMIN (11/07/14 7:15 AM) Respiratory Rate [14-20 BRMIN] 1 2 3 Most recent to oldest [Reference Range]: 88 bpm (11/07/14 11:52 AM) 96 bpm (11/07/14 7:15 AM) 84 bpm (11/06/14 7:45 AM) Peripheral Pulse Rate [60-100 bpm] 1 2 3 Most recent to oldest [Reference Range]: 68.182 kg (11/03/14 7:30 PM) Weight 1 2 3 Most recent to oldest [Reference Range]: 23.54 m2 (11/03/14 7:30 PM) Body Mass Index Problem List Condition Effective Dates Status Health Status Informant Diabetes Active mellitus(Confirmed) Leukemia(Confirmed) Resolved Seizure(Confirmed) Active Allergies, Adverse Reactions, Alerts Substance Reaction Severity Status HYDROcodone-pseudoephedri Active ne simvastatin Active Medications acetaminophen 1,000 mg, 100 mL, Route: IV, Drug form: INJ, ONCE, Dosing Weight 68.182, kg, Sta rt date: 11/04/14 6:42:00, Stop date: 11/04/14 6:42:00 Notes: Infuse over 15 minutesDo not exceed 4gm/day of acetaminophen MEDICAT ION WASTE Product Size: 1000 mgProduct Wasted: ___ mg Start Date: 11/04/14 Stop Date: 11/04/14 Status: Completed busPIRone 5 mg, PO, BID, 0 Refill(s) Start Date: 11/07/14 Status: Ordered calcium gluconate + Sodium Chloride 0.9% IV 100 mL 3,000 mg, 30 mL, Route: IV, ONCE, Start date: 11/05/14 4:15:00, Stop date: 11/05 4:15:00 Start Date: 11/05/14 Stop Date: 11/05/14 Status: Completed ceFAZolin (SCIP) + Sodium Chloride 0.9% IV 100 mL Route: IVP, Drug form: INJ, ABXQ8H, Dosing Weight 68.182, kg, Start date: 21:00:00, Duration: 1 day, Stop date: 11/04/14 13:00:00 Notes: (Same As: Abilio Cabello)Cefazolin FOR IV SET ONLY MEDICATION WAS TE Product Size: 1000 mgProduct Wasted: _0__ mg Start Date: 11/03/14 Stop Date: 11/04/14 Status: Completed citalopram 40 mg, PO, Daily, 0 Refill(s) Start Date: 11/07/14 Status: Ordered citalopram 40 mg, 2 tab, Route: PO, Drug form: TAB, Daily, Dosing Weight 68.182, kg, Start date: 11/05/14 9:00:00, Duration: 30 day, Stop date: 12/04/14 9:00:00 Notes: (Same As: CeleXA) Start Date: 11/05/14 Stop Date: 11/07/14 Status: Discontinued Depakote 500 mg oral enteric coated tablet 500 mg=1 tab, PO, TID, 0 Refill(s) Start Date: 11/07/14 Status: Ordered Depakote ER 500 mg oral tablet, extended release 1,000 mg, 2 tab, Route: PO, Drug form: ERTAB, ONCE, Dosing Weight 68.182, kg, St art date: 11/05/14 17:00:00, Stop date: 11/05/14 17:00:00 Notes: (Same as: Depakote ER) Once daily dosing; indicated for migraines. Dival proex sodium extended-release tab. Do not chew or crush. "Do Not Crush" Start Date: 11/05/14 Stop Date: 11/05/14 Status: Completed Depakote ER 500 mg oral tablet, extended release 1,000 mg, 2 tab, Route: PO, Drug form: ERTAB, Daily, Dosing Weight 68.182, kg, S tart date: 11/04/14 9:00:00, Duration: 30 day, Stop date: 12/03/14 9:00:00 Notes: (Same as: Depakote ER) Once daily dosing; indicated for migraines. Dival proex sodium extended-release tab. Do not chew or crush. "Do Not Crush" Start Date: 11/04/14 Stop Date: 11/04/14 Status: Discontinued Dextrose 50% Syringe 25 gm, 50 mL, Route: IVP, Drug Form: INJ, Dosing Weight 68.182, kg, PRN, PRN Abn ormal Lab Result, Start date: 11/03/14 20:53:00, Duration: 30 day, Stop date: 20:52:00 Start Date: 11/03/14 Stop Date: 11/07/14 Status: Discontinued Dextrose 50% Syringe 6.25 gm, 12.5 mL, Route: IVP, Drug Form: INJ, Dosing Weight 68.182, kg, PRN, PRN Abnormal Lab Result, Start date: 11/03/14 20:53:00, Duration: 30 day, Stop date: 12/03/14 20:52:00 Start Date: 11/03/14 Stop Date: 11/07/14 Status: Discontinued Dextrose 50% Syringe 12.5 gm, 25 mL, Route: IVP, Drug Form: INJ, Dosing Weight 68.182, kg, PRN, PRN A bnormal Lab Result, Start date: 11/03/14 20:53:00, Duration: 30 day, Stop date: 12/03/14 20:52:00 Start Date: 11/03/14 Stop Date: 11/07/14 Status: Discontinued dicyclomine 10 mg oral capsule 20 mg=2 cap, PO, QID, 0 Refill(s) Start Date: 11/07/14 Status: Ordered digoxin .25, Daily, 0 Refill(s) Start Date: 11/07/14 Status: Ordered digoxin 250 mcg (0.25 mg) oral tablet 0.25 mg, 1 tab, Route: PO, Drug form: TAB, Daily, Dosing Weight 68.182, kg, Prio rity: NOW, Start date: 11/04/14 10:49:00, Duration: 30 day, Stop date: 12/04/14 9:00:00 Notes: Take on an Empty Stomach (Same as: Lanoxin) Start Date: 11/04/14 Stop Date: 11/07/14 Status: Discontinued divalproex sodium 500 mg oral tablet, extended release(Depakote ER) 1,500 mg, 3 tab, Route: PO, Drug form: ERTAB, Daily, Dosing Weight 68.182, kg, S tart date: 11/06/14 9:00:00, Duration: 30 day, Stop date: 12/05/14 9:00:00 Notes: (Same as: Depakote ER) Once daily dosing; indicated for migraines. Dival proex sodium extended-release tab. Do not chew or crush. "Do Not Crush" Start Date: 11/06/14 Stop Date: 11/07/14 Status: Discontinued docusate 100 mg, 1 cap, Route: PO, Drug form: CAP, Q12H, Dosing Weight 68.182, kg, Start date: 11/03/14 21:00:00, Duration: 30 day, Stop date: 12/03/14 9:00:00 Notes: (Same as: Colace) (Do Not Crush) Start Date: 11/03/14 Stop Date: 11/07/14 Status: Discontinued docusate sodium 100 mg oral capsule 100 mg=1 cap, PO, Q12H, # 28 cap, 0 Refill(s) Start Date: 11/07/14 Stop Date: 11/21/14 Status: Ordered fentaNYL 25 microgram, 0.5 mL, Route: IVP, Drug form: INJ, Q5Min, Dosing Weight 68.182, k g, PRN Pain Score 4-6, Start date: 11/03/14 22:53:00, Duration: 4 doses or times , Stop date: Limited # of times Notes: (Same as: Sublimaze) Preservative free. Start Date: 11/03/14 Stop Date: 11/04/14 Status: Discontinued Flomax 0.4 mg, 1 cap, Route: PO, Drug form: CAP, Daily, Dosing Weight 68.182, kg, Start date: 11/04/14 21:14:00, Duration: 30 day, Stop date: 12/04/14 9:00:00 Notes: (Same As: Flomax) "Do Not Crush" Start Date: 11/04/14 Stop Date: 11/07/14 Status: Discontinued flumazenil 0.2 mg, 2 mL, Route: IVP, Drug form: INJ, PRN, Dosing Weight 68.182, kg, PRN Hernán zodiazepine Reversal, Initial dose, Start date: 11/03/14 22:53:00, Duration: 30 day, Stop date: 12/03/14 22:52:00 Notes: (Same as: Romazicon) Start Date: 11/03/14 Stop Date: 11/04/14 Status: Discontinued heparin 5000 units/mL injectable solution 5,000 unit, 1 mL, Route: SUB-Q, Drug form: INJ, Q8H, Dosing Weight 68.182, kg, S tart date: 11/06/14 0:00:00, Duration: 30 day, Stop date: 12/05/14 16:00:00 Notes: porcine heparin Start Date: 11/06/14 Stop Date: 11/07/14 Status: Discontinued insulin regular 100 units/mL human recombinant 5 unit, 0.05 mL, Route: SUB-Q, Drug form: SOLN, PRN, Dosing Weight 68.182, kg, P RN Abnormal Lab Result, Start date: 11/03/14 20:53:00, Duration: 30 day, Stop da te: 12/03/14 20:52:00 Notes: (Same as: Humulin R) Roll in palms of hands gently; Do not shake vigorou sly. "single patient use only"(Restricted to patients requiring a dose > 60 units) Stable for 28 days at room temperatureExpires in days from _ Date Start Date: 11/03/14 Stop Date: 11/07/14 Status: Discontinued insulin regular 100 units/mL human recombinant 3 unit, 0.03 mL, Route: SUB-Q, Drug form: SOLN, PRN, Dosing Weight 68.182, kg, P RN Abnormal Lab Result, Start date: 11/03/14 20:53:00, Duration: 30 day, Stop da te: 12/03/14 20:52:00 Notes: (Same as: Humulin R) Roll in palms of hands gently; Do not shake vigorou sly. "single patient use only"(Restricted to patients requiring a dose > 60 units) Stable for 28 days at room temperatureExpires in days from _ Date Start Date: 11/03/14 Stop Date: 11/07/14 Status: Discontinued insulin regular 100 units/mL human recombinant 7 unit, 0.07 mL, Route: SUB-Q, Drug form: SOLN, PRN, Dosing Weight 68.182, kg, P RN Abnormal Lab Result, Start date: 11/03/14 20:53:00, Duration: 30 day, Stop da te: 12/03/14 20:52:00 Notes: (Same as: Humulin R) Roll in palms of hands gently; Do not shake vigorou sly. "single patient use only"(Restricted to patients requiring a dose > 60 units) Stable for 28 days at room temperatureExpires in days from _ Date Start Date: 11/03/14 Stop Date: 11/07/14 Status: Discontinued lactulose 10 g/15 mL oral syrup 10 gm=15 mL, PO, Daily, 0 Refill(s) Start Date: 11/07/14 Status: Ordered levETIRAcetam 1,000 mg, 2 tab, Route: PO, Drug form: TAB, Q12H, Dosing Weight 68.182, kg, Star t date: 11/03/14 21:00:00, Stop date: 12/03/14 9:00:00 Notes: (Same as:Keppra) Start Date: 11/03/14 Stop Date: 11/04/14 Status: Discontinued levETIRAcetam + Sodium Chloride 0.9% IV 100 mL 1,000 mg, Route: IVPB, Drug form: INJ, ONCE, Dosing Weight 68.182, kg, Start anita e: 11/03/14 20:53:00, Stop date: 11/03/14 20:53:00 Notes: Same as KeppraMix with 100 mL NS, LR or D5W MEDICATION WASTE Prod uct Size: 500 mgProduct Wasted: ___ mg Start Date: 11/03/14 Stop Date: 11/04/14 Status: Completed magnesium sulfate 2 gm, 50 mL, Route: IVPB, Drug form: INJ, ONCE, Start date: 11/04/14 5:00:00, St op date: 11/04/14 5:00:00 Start Date: 11/04/14 Stop Date: 11/04/14 Status: Completed magnesium sulfate 2 gm, 50 mL, Route: IVPB, Drug form: INJ, Q2H, Start date: 11/05/14 4:00:00, Dur ation: 1 doses or times, Stop date: 11/05/14 4:00:00 Start Date: 11/05/14 Stop Date: 11/05/14 Status: Completed meclizine 12.5 mg oral tablet 12.5 mg=1 tab, PO, BID, 0 Refill(s) Start Date: 11/07/14 Status: Ordered metFORMIN 500 mg, PO, BID, 0 Refill(s) Start Date: 11/07/14 Status: Ordered midodrine 5 mg, PO, TID, 0 Refill(s) Start Date: 11/07/14 Status: Ordered midodrine 5 mg, 1 tab, Route: PO, Drug form: TAB, TID, Dosing Weight 68.182, kg, Start anita e: 11/04/14 13:00:00, Duration: 30 day, Stop date: 12/04/14 9:00:00 Notes: (Same as:Proamatine) Start Date: 11/04/14 Stop Date: 11/07/14 Status: Discontinued naloxone 0.04 mg, 0.1 mL, Route: IVP, Drug form: INJ, Q2MIN, Dosing Weight 68.182, kg, AR N Narcotic Reversal, Start date: 11/03/14 22:53:00, Duration: 8 doses or times, Stop date: Limited # of times Notes: Same as Narcan Start Date: 11/03/14 Stop Date: 11/04/14 Status: Discontinued Omnipaque 350mg/ml 85 mL, Route: IVP, Drug Form: SOLN, Dosing Weight 68.182, kg, ONCALL, STAT, Star t date: 11/03/14 20:07:00, Duration: 1 doses or times, Dose=2.2ml/kg, Max dose= 100ml -- "To be infused by Radiology Staff ONLY" Special Instructions: Dose=2.2ml/kg, Max [id number] -- "To be infused by Radiol ogy Staff ONLY" Start Date: 11/03/14 Stop Date: 11/03/14 Status: Completed ondansetron 4 mg, 2 mL, Route: IVP, Drug form: INJ, ONCE, Dosing Weight 68.182, kg, PRN Naus ea & Vomiting, Start date: 11/03/14 22:53:00 Notes: (Same as: Kristie) MEDICATION WASTE Product Size: 4 mgProduct Was sourav: ___ mg Start Date: 11/03/14 Stop Date: 11/04/14 Status: Discontinued Requip 1 mg, 1 tab, Route: PO, Drug form: TAB, TID-Before Meals, Dosing Weight 68.182, kg, Start date: 11/04/14 11:30:00, Duration: 30 day, Stop date: 12/04/14 7:30:00 Notes: (Same as: Requip) Start Date: 11/04/14 Stop Date: 11/07/14 Status: Discontinued Requip 1 mg oral tablet 1 mg=1 tab, PO, TID, 0 Refill(s) Start Date: 11/07/14 Status: Ordered Saline Flush 0.9% 10 ml, Route: IVP, Drug Form: INJ, Dosing Weight 68.182, kg, Q12H, Start date: 0 11/03/14 21:00:00, Duration: 30 day, Stop date: 12/03/14 9:00:00 Notes: preservative free. Start Date: 11/03/14 Stop Date: 11/07/14 Status: Discontinued Saline Flush 0.9% 10 ml, Route: IVP, Drug Form: INJ, Dosing Weight 68.182, kg, PRN, PRN Line Flush , Start date: 11/03/14 20:53:00, Duration: 30 day, Stop date: 12/03/14 20:52:00 Notes: (Same as: BD Posiflush) Start Date: 11/03/14 Stop Date: 11/07/14 Status: Discontinued Saline Flush 0.9% 10 mL, Route: IVP, Drug Form: INJ, Dosing Weight 68.182, kg, PRN, PRN Line Flush , Start date: 11/03/14 19:26:00, Duration: 30 day, Stop date: 12/03/14 19:25:00 Notes: (Same as: BD Posiflush) Start Date: 11/03/14 Stop Date: 11/07/14 Status: Discontinued senna 8.6 mg, 1 tab, Route: PO, Drug Form: TAB, Dosing Weight 68.182, kg, Q12H, Start date: 11/03/14 21:00:00, Duration: 30 day, Stop date: 12/03/14 9:00:00 Notes: (Same as: Senokot) Start Date: 11/03/14 Stop Date: 11/07/14 Status: Discontinued senna 8.6 mg oral tablet 8.6 mg=1 tab, PO, Q12H, X 5 day, # 10 tab, 0 Refill(s) Start Date: 11/07/14 Stop Date: 11/12/14 Status: Ordered Sodium Chloride 0.9% (titrate) 250 mL 250 mL, Rate: 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 blood product administration, Dosing Weight 6 8.182, kg, Route: IV, Total Volume: 250, Start Date: 11/03/14 20:53:00, Duration : 30 day, Stop date: 12/03/14 20:52:00, Replace Every: 24 hr Start Date: 11/03/14 Stop Date: 11/04/14 Status: Discontinued Sodium Chloride 0.9% IV 1,000 mL 1,000 mL, Rate: 75 ml/hr, Infuse over: 13.3 hr, Route: IV, Dosing Weight 68.182 kg, Total Volume: 1,000, Start date: 11/03/14 20:53:00, Duration: 30 day, Stop d ate: 12/03/14 20:52:00 Start Date: 11/03/14 Stop Date: 11/04/14 Status: Discontinued Sodium Chloride 0.9% IV 1,000 mL + sodium chloride 188 mEq 1,000 mL, Rate: 75 ml/hr, Infuse over: 14 hr, Route: IV, Dosing Weight 68.182 kg , Total Volume: 1,047, Start date: 11/04/14 3:48:00, Duration: 30 day, Stop date : 12/04/14 3:47:00, For IMU and ICU use only. See Order Comments!! Special Instructions: For IMU and ICU use only. See Order Comments!! Start Date: 11/04/14 Stop Date: 11/04/14 Status: Discontinued sodium chloride 1 gm oral tablet 3 gm=3 tab, PO, Q6H, # 360 tab, 0 Refill(s) Start Date: 11/07/14 Stop Date: 12/07/14 Status: Ordered sodium chloride 1 gm oral tablet 3 gm, 3 tab, Route: PO, Drug form: TAB, Q6H, Dosing Weight 68.182, kg, Start anita e: 11/05/14 6:00:00, Duration: 30 day, Stop date: 12/05/14 0:00:00 Start Date: 11/05/14 Stop Date: 11/07/14 Status: Discontinued sodium chloride 1 gm oral tablet 2 gm, 2 tab, Route: PO, Drug form: TAB, Q8H, Dosing Weight 68.182, kg, Start anita e: 11/05/14 2:24:00, Duration: 30 day, Stop date: 12/05/14 0:00:00 Start Date: 11/05/14 Stop Date: 11/05/14 Status: Discontinued sodium chloride 1 gm oral tablet 2 gm, 2 tab, Route: PO, Drug form: TAB, Q8H, Dosing Weight 68.182, kg, Start anita e: 11/06/14 16:00:00, Duration: 30 day, Stop date: 12/06/14 8:00:00 Start Date: 11/06/14 Stop Date: 11/06/14 Status: Deleted sterile water INJ 1000 ml 1,000 mL + sodium chloride 23.4% IV 342 mEq 1,000 mL, Rate: 50 ml/hr, Infuse over: 21.7 hr, Route: IV, Dosing Weight 68.182 kg, Total Volume: 1,085.5, Start date: 11/05/14 0:42:00, Stop date: 12/05/14 0:4 1:00, For IMU and ICU use only. See Order Comments!! Special Instructions: For IMU and ICU use only. See Order Comments!! Start Date: 11/05/14 Stop Date: 11/05/14 Status: Discontinued tamsulosin 0.4 mg oral capsule 0.4 mg=1 cap, PO, Daily, # 21 cap, 0 Refill(s) Start Date: 11/07/14 Stop Date: 11/28/14 Status: Ordered tramadol 50 mg, 1 tab, Route: PO, Drug form: TAB, Q6H, Dosing Weight 68.182, kg, PRN Pain Score 4-6, Start date: 11/05/14 18:00:00, Duration: 30 day, Stop date: 12/05/14 17:59:00 Notes: Not to exceed 400mg/day. (Same As: Ultram) Start Date: 11/05/14 Stop Date: 11/07/14 Status: Discontinued tramadol 50 mg oral tablet 50 mg=1 tab, PO, Q6H, PRN Pain Score 4-6, X 30 day, # 120 tab, 0 Refill(s) Start Date: 11/07/14 Stop Date: 12/07/14 Status: Ordered valproic acid 100 mg/mL intravenous solution + Sodium Chloride 0.9% IV 45 mL 500 mg, 5 mL, Route: IVPB, Q8H, Dosing Weight 68.182, kg, Start date: 11/04/14 1 0:00:00, Duration: 30 day, Stop date: 12/04/14 8:00:00 Notes: Dilute in at least 50ml D5W or NS. Infusion rate=20 mg/min(Same As: Depac on) Start Date: 11/04/14 Stop Date: 11/05/14 Status: Discontinued valproic acid 250 mg oral delayed release capsule(Stavzor) PO, Q24H, 1500mg Daily, 0 Refill(s) Special Instructions: 1500mg Daily Start Date: 11/07/14 Status: Ordered Zofran 4 mg, 2 mL, Route: IVP, Drug form: INJ, ONCE, Dosing Weight 68.182, kg, Start da te: 11/04/14 6:42:00, Stop date: 11/04/14 6:42:00 Notes: (Same as: Zofran) MEDICATION WASTE Product Size: 4 mgProduct Was sourav: ___ mg Start Date: 11/04/14 Stop Date: 11/04/14 Status: Completed Zofran 4 mg, 1 tab, Route: PO, Drug form: TAB, Q8H, Dosing Weight 68.182, kg, PRN Nause a, Start date: 11/05/14 20:11:00, Duration: 30 day, Stop date: 12/05/14 20:10:00 Notes: (Same as: Zofran) Start Date: 11/05/14 Stop Date: 11/07/14 Status: Discontinued Results BLOOD BANK RESULTS 1 2 3 Most recent to oldest [Reference Range]: O POS *Unknown* (11/03/14 7:30 PM) ABO/Rh Negative (11/03/14 7:30 PM) Antibody Scrn ELECTROLYTES 1 2 3 Most recent to oldest [Reference Range]: 137 mEq/L (11/07/14 11:29 AM) 136 mEq/L (11/07/14 3:06 AM) 135 mEq/L (11/06/14 9:20 PM) Sodium Lvl [135-145 mEq/L] 4.7 mEq/L (11/06/14 3:34 AM) 4.0 mEq/L (11/05/14 1:30 AM) 4.1 mEq/L 4 (11/04/14 9:15 PM) Potassium Lvl [3.5-5.1 mEq/L] 100 mEq/L (11/06/14 3:34 AM) 96 mEq/L (11/05/14 1:30 AM) 99 mEq/L 2 (11/04/14 9:15 PM) Chloride Lvl [95-109 mEq/L] 24 mEq/L (11/06/14 3:34 AM) 24 mEq/L (11/05/14 1:30 AM) 27 mEq/L 3 (11/04/14 9:15 PM) CO2 [24-32 mEq/L] 14.7 mEq/L (11/06/14 3:34 AM) 15.0 mEq/L (11/05/14 1:30 AM) 11.1 mEq/L 1 (11/04/14 9:15 PM) AGAP [10.0-20.0 mEq/L] 1Result Comment: Collection date/time has been modified to: 21:15:00. Previous collection date/time: 11:34:00. 2Result Comment: Collection date/time has been modified to: :15:00. Previous collection date/time: 11:34:00. 3Result Comment: Collection date/time has been modified to: :15:00. Previous collection date/time: 11:34:00. 4Result Comment: Collection date/time has been modified to: 21:15:00. Previous collection date/time: 11:34:00. CHEM PANEL 1 2 3 Most recent to oldest [Reference Range]: 0.6 mg/dL (11/06/14 3:34 AM) 0.8 mg/dL (11/05/14 1:30 AM) 0.9 mg/dL 10 (11/04/14 9:15 PM) Creatinine Lvl [0.5-1.4 mg/dL] 132 mL/min/1.73m2 5 *NA* (11/06/14 3:34 AM) 117 mL/min/1.73m2 6 *NA* (11/05/14 1:30 AM) 112 mL/min/1.73m2 7 *NA* (11/04/14 9:15 PM) eGFR 12 mg/dL (11/06/14 3:34 AM) 16 mg/dL (11/05/14 1:30 AM) 14 mg/dL 8 (11/04/14 9:15 PM) BUN [7-22 mg/dL] 80 mg/dL (11/06/14 3:34 AM) 114 mg/dL *HI* (11/05/14 1:30 AM) 119 mg/dL 11 *HI* (11/04/14 9:15 PM) Glucose Lvl [70-99 mg/dL] 8.8 mg/dL (11/06/14 3:34 AM) 8.8 mg/dL (11/05/14 1:30 AM) 8.3 mg/dL 9 *LOW* (11/04/14 9:15 PM) Calcium Lvl [8.5-10.5 mg/dL] 3.4 mg/dL (11/06/14 3:34 AM) 3.1 mg/dL (11/05/14 1:30 AM) 3.1 mg/dL (11/04/14 1:16 AM) Phosphorus [2.5-4.5 mg/dL] 1.8 mg/dL (11/06/14 3:34 AM) 1.9 mg/dL (11/05/14 1:30 AM) 1.8 mg/dL (11/04/14 1:16 AM) Magnesium Lvl [1.8-2.4 mg/dL] 0.8 mMol/L (11/03/14 7:30 PM) Lactic Acid Lvl [0.5-2.2 mMol/L] 278 mOsm/kg *LOW* (11/04/14 8:46 AM) Osmolality [280-300 mOsm/kg] <0.05 ng/mL (11/04/14 8:46 AM) <0.05 ng/mL (11/04/14 1:16 AM) Procalcitonin Lvl [0.00-0.10 ng/mL] 5Result Comment: The eGFR is calculated using the [...] be mul tiplied by the estimated BMI. 6Result Comment: The eGFR is calculated using the [...] be mul tiplied by the estimated BMI. 7Result Comment: The eGFR is calculated using the [...] be mul tiplied by the estimated BMI. Collection date/time has been modified to: 21:15:00. Previous collection date/time: 11:34:00. 8Result Comment: Collection date/time has been modified to: :15:00. Previous collection date/time: 11:34:00. 9Result Comment: Collection date/time has been modified to: 21:15:00. Previous collection date/time: 11:34:00. 10Result Comment: Collection date/time has been modified to: 21:15:00. Previous collection date/time: 11:34:00. 11Result Comment: Collection date/time has been modified to: :15:00. Previous collection date/time: 11:34:00. CARDIAC ENZYMES 1 2 3 Most recent to oldest [Reference Range]: 85 unit/L (11/04/14 8:46 AM) 98 unit/L (11/04/14 2:54 AM) Total CK [12-191 unit/L] 0.8 ng/mL (11/04/14 8:46 AM) 0.8 ng/mL (11/04/14 2:54 AM) CK MB [0.5-3.6 ng/mL] 0.9 (11/04/14 8:46 AM) 0.8 (11/04/14 2:54 AM) CK MB Index [0.0-2.5] <0.010 ng/mL (11/04/14 8:46 AM) <0.010 ng/mL (11/04/14 2:54 AM) Troponin-T [0.000-0.100 ng/mL] <0.02 ng/mL (11/04/14 8:46 AM) <0.02 ng/mL (11/04/14 2:54 AM) Troponin-I [0.00-0.40 ng/mL] PARATHYROID PROFILE 1 2 3 Most recent to oldest [Reference Range]: 1.05 mMol/L (11/05/14 1:30 AM) 1.19 mMol/L (11/04/14 1:16 AM) Ca Ion WB [1.05-1.25 mMol/L] 1.08 mMol/L (11/05/14 1:30 AM) 1.17 mMol/L (11/04/14 1:16 AM) Ca Norm WB [1.05-1.25 mMol/L] TOXICOLOGY 1 2 3 Most recent to oldest [Reference Range]: 0.7 ng/mL *LOW* (11/07/14 3:06 AM) Digoxin Lvl [0.8-2.0 ng/mL] 98 ug/ml (11/05/14 8:15 AM) 140 ug/ml *HI* (11/05/14 1:30 AM) 84 ug/ml (11/04/14 1:16 AM) Valproic Acid Lvl [50-100 ug/ml] <.003 % *NA* (11/03/14 7:26 PM) Etoh (%) <3 mg/dL *NA* (11/03/14 7:26 PM) Ethanol Lvl URINE CHEM 1 2 3 Most recent to oldest [Reference Range]: 74 mEq/L *NA* (11/04/14 8:46 AM) U Sodium 658 mOsm/kg (11/04/14 8:46 AM) U Osmolality [300-800 mOsm/kg] URINE AND STOOL 1 2 3 Most recent to oldest [Reference Range]: Clear (11/04/14 1:16 AM) UA Turbidity [Clear] Light Yellow (11/04/14 1:16 AM) UA Color [Yellow] 7.0 (11/04/14 1:16 AM) UA pH [5.0-8.0] <=1.005 *NA* (11/04/14 1:16 AM) UA Spec Grav [<=1.030] Negative (11/04/14 1:16 AM) UA Glucose [Negative] Trace *ABN* (11/04/14 1:16 AM) UA Blood [Negative] Negative *NA* (11/04/14 1:16 AM) UA Ketones [Negative] Negative (11/04/14 1:16 AM) UA Protein [Negative] 0.2 EU/dL (11/04/14 1:16 AM) UA Urobilinogen [0.1-1.0 EU/dL] Negative *NA* (11/04/14 1:16 AM) UA Bili [Negative] Negative (11/04/14 1:16 AM) UA Leuk Est [Negative] Negative (11/04/14 1:16 AM) UA Nitrite [Negative] Occasional /HPF *NA* (11/04/14 1:16 AM) UA Bacteria [None Seen /HPF] None Seen (11/04/14 1:16 AM) UA Sq Epi [Few] Occasional /HPF *NA* (11/04/14 1:16 AM) UA Amorph Jillian [None Seen /HPF] HEMATOLOGY 1 2 3 Most recent to oldest [Reference Range]: 10.8 K/CMM *HI* (11/06/14 3:34 AM) 17.5 K/CMM *HI* (11/05/14 1:30 AM) 12.1 K/CMM *HI* (11/04/14 1:16 AM) WBC [3.7-10.4 K/CMM] 3.54 M/CMM *LOW* (11/06/14 3:34 AM) 3.72 M/CMM *LOW* (11/05/14 1:30 AM) 3.93 M/CMM *LOW* (11/04/14 1:16 AM) RBC [4.70-6.10 M/CMM] 11.9 g/dL *LOW* (11/06/14 3:34 AM) 12.2 g/dL *LOW* (11/05/14 1:30 AM) 13.1 g/dL *LOW* (11/04/14 1:16 AM) Hgb [14.0-18.0 g/dL] 34.2 % *LOW* (11/06/14 3:34 AM) 35.5 % *LOW* (11/05/14 1:30 AM) 37.6 % *LOW* (11/04/14 1:16 AM) Hct [42.0-54.0 %] 96.6 fL *HI* (11/06/14 3:34 AM) 95.5 fL *HI* (11/05/14 1:30 AM) 95.7 fL *HI* (11/04/14 1:16 AM) MCV [80.0-94.0 fL] 33.5 pg *HI* (11/06/14 3:34 AM) 32.7 pg *HI* (11/05/14 1:30 AM) 33.4 pg *HI* (11/04/14 1:16 AM) MCH [27.0-31.0 pg] 34.7 g/dL (11/06/14 3:34 AM) 34.3 g/dL (11/05/14 1:30 AM) 34.9 g/dL (11/04/14 1:16 AM) MCHC [32.0-36.0 g/dL] 12.8 % (11/06/14 3:34 AM) 13.1 % (11/05/14 1:30 AM) 12.8 % (11/04/14 1:16 AM) RDW [11.5-14.5 %] 288 K/CMM (11/06/14 3:34 AM) 346 K/CMM (11/05/14 1:30 AM) 362 K/CMM (11/04/14 1:16 AM) Platelet [133-450 K/CMM] 8.1 fL (11/06/14 3:34 AM) 6.9 fL *LOW* (11/05/14 1:30 AM) 7.1 fL *LOW* (11/04/14 1:16 AM) MPV [7.4-10.4 fL] 56.2 % (11/06/14 3:34 AM) 80.2 % *HI* (11/05/14 1:30 AM) 90.6 % *HI* (11/04/14 1:16 AM) Segs [45.0-75.0 %] 33.4 % (11/06/14 3:34 AM) 12.4 % *LOW* (11/05/14 1:30 AM) 7.2 % *LOW* (11/04/14 1:16 AM) Lymphocytes [20.0-40.0 %] 8.6 % (11/06/14 3:34 AM) 6.7 % (11/05/14 1:30 AM) 1.8 % *LOW* (11/04/14 1:16 AM) Monocytes [2.0-12.0 %] 0.9 % (11/06/14 3:34 AM) 0.1 % (11/05/14 1:30 AM) 0.2 % (11/04/14 1:16 AM) Eosinophils [0.0-4.0 %] 0.9 % (11/06/14 3:34 AM) 0.6 % (11/05/14 1:30 AM) 0.2 % (11/04/14 1:16 AM) Basophils [0.0-1.0 %] 6.1 K/CMM (11/06/14 3:34 AM) 14.1 K/CMM *HI* (11/05/14 1:30 AM) 10.9 K/CMM *HI* (11/04/14 1:16 AM) Segs-Bands # [1.5-8.1 K/CMM] 3.6 K/CMM (11/06/14 3:34 AM) 2.2 K/CMM (11/05/14 1:30 AM) 0.9 K/CMM *LOW* (11/04/14 1:16 AM) Lymphocytes # [1.0-5.5 K/CMM] 0.9 K/CMM *HI* (11/06/14 3:34 AM) 1.2 K/CMM *HI* (11/05/14 1:30 AM) 0.2 K/CMM (11/04/14 1:16 AM) Monocytes # [0.0-0.8 K/CMM] 0.1 K/CMM (11/06/14 3:34 AM) 0.2 K/CMM (11/03/14 7:30 PM) Eosinophils # [0.0-0.5 K/CMM] 0.1 K/CMM (11/06/14 3:34 AM) 0.1 K/CMM (11/05/14 1:30 AM) 0.1 K/CMM (11/03/14 7:30 PM) Basophils # [0.0-0.2 K/CMM] 14.3 seconds (11/05/14 12:51 PM) PT [12.0-14.7 seconds] 1.10 (11/05/14 12:51 PM) INR [0.85-1.17] 33.5 seconds (11/05/14 12:51 PM) PTT [22.9-35.8 seconds] Citrated Whole Blood *NA* (11/03/14 7:30 PM) Rapid TEG Sample Type 113 seconds (11/03/14 7:30 PM) ACT (TEG) [86-118 seconds] 0.6 minutes *NA* (11/03/14 7:30 PM) Split Point 0.7 minutes (11/03/14 7:30 PM) R-time [0.4-0.7 minutes] 1.2 minutes (11/03/14 7:30 PM) K-time [0.6-2.3 minutes] 76 degrees (11/03/14 7:30 PM) Angle [64-80 degrees] 59 mm (11/03/14 7:30 PM) Max Amp [52-71 mm] 7.2 K d/sc (11/03/14 7:30 PM) G-value [5.0-11.6 K d/sc] 13.0 % 12 *HI* (11/03/14 7:30 PM) Estimated % Lysis [0.0-7.5 %] 12Result Comment: "Significant Findings called to DR. Jany Ledezma_at _11/03/2014 20:42__by [facility]___.Read Back OK." Called to [id number], not their patient. BACTERIAL - SEROLOGY 1 2 3 Most recent to oldest [Reference Range]: Negative (11/04/14 12:45 AM) MRSA by PCR Immunizations No data available for this section Procedures Procedure Date Related Diagnosis Body Site Gallbladder stone removal 07/18/13 Cholecystectomy Social History Social History Type Response Smoking Status Never smoker; Exposure to Tobacco Smoke None; Cigarette Smoking Last 365 Days No; Reg Smoking Cessation Counseling No Assessment and Plan Extracted from: Title: Clinical Document Author: Neto Snyder MD Date: 11/03/14 PATIENT NAME: GUSTAVO ROBERSON DATE OF OPERATION/PROCEDURE: 11/03/2014 *_*_* PREOPERATIVE DIAGNOSIS: Symptomatic RIGHT subacute subdural hemorrhage with evidence of malignant intracranial hypertension and cerebral edema. POSTOPERATIVE DIAGNOSIS: Symptomatic RIGHT subacute subdural hemorrhage with evidence of malignant intracranial hypertension and cerebral edema. PROCEDURES PERFORMED: 1. RIGHT double bur hole evacuation of subdural hemorrhage and treatment of intracranial hypertension. 2. Placement of subdural drain. SURGEON: Neto Snyder M.D. HOSPITALIST NOCTURNIST PHYSICIAN: Sammy Mccauley M.D., Michael To M.D. ANESTHESIA: General endotracheal tube anesthesia. IV FLUIDS: 850 cc URINE OUTPUT: 520 cc ESTIMATED BLOOD LOSS: 50 cc INDICATION FOR SURGERY: Patient is a 34 yo male with a history of seizures presenting with headache for 3 days found to have a right subacute subdural hemorrhage with 1.4 cm of MLS. There is an unclear history of a recent seizure and a fall. He appears neurologically intact on exam. Due to risk of neurologic injury, brain herniation, and cerebral edema, we recommend: RIGHT burrhole drainage of subdural hemorrhage We discussed the risks and benefits of the procedure. Risks include bleeding, infection, neurologic injury including worsening stroke, hemorrhage, , possible need for reoperation and possible reaccumulation of hemorrhage. We obtained emergency consent to proceed with the case. All questions were answered. No guarantees were made to the outcome of the case. PROCEDURE IN DETAIL: The patient was clearly identified with all markers. Patient was brought back by anesthesia where the patient underwent general endotracheal tube anesthesia. All lines, including IV access and arterial line, were placed. The patient was then placed supine with a RIGHT shoulder roll and the head turned so long axis was parallel to the floor on a horseshoe assembler golf wood head with the RIGHT side up. The thorax was elevated approximately 50 degrees to reduce intracranial venous congestion. Neck was extended approximately 10 degrees. All pressure points were carefully checked and padded. SCDs were placed on both lower extremities for thrombosis prophylaxis. The patient received 2 grams of Ancef within an hour of the incision and operative timeout was performed. Incision was planned for two RIGHT bur holes for evacuation of subdural hemorrhage and treatment of malignant cerebral edema. Patient was then prepped and draped in sterile fashion with alcohol wash, ChloraPrep and Betadine scrub and paint. Marcaine 0.25% with epinephrine was infiltrated into the incision area. Two separate RIGHT incisions was made with a #10 blade at (1) the coronal suture approximately 5 cm lateral from midline and (2) approximately 6 cm superior and posterior to the EAM. Self-retaining retractors were placed and a cranial antenna installer were used to create the bur hole. This were enlarged with a Kerrison punch to allow maximal exposure and visualization. Bone edges were bone waxed. The dura was then bipolared and then opened in a stellate manner with a #11 blade. Underneath the dura there was found to be extensive amount of subacute hemorrhage under pressure pushing down the brain. This was washed out with irrigation with a red rubbber catheter passed in all cardinal directions in the subdural space. The brain began to slowly reexpand but only a partial amount of space began to refill. There was no evidence of dense hemorrhage clot and fluid was loose. Additional irrigation was made to remove any potential hematoma. Hemostasis was achieved with Surgiflo, Surgicel, Gelfoam bipolar electrocautery. A Bactiseal extraventricular drain was then inserted into the subdural space at the posterior burhole. It was placed under direct visualization with care not to disrupt any of the overlying cortex and advanced anteriorly. This was tunneled back approximately 4 cm from the posterior incision. The bur hole was then covered with thrombin-soaked Gelfoam. There was no additional bleeding. Closure was then commenced. The galea was closed with 2-0 Vicryl. Skin was closed with skin adry. The head was dressed with bacitracin ointment, Telfa and Medipore tape. The drain was then secured with 3-0 nylon. All counts were correct at the end the case. There were no additional complications. The patient was extubated for transfer to the PACU with no change in the stated neurologic condition. Dr. Neto Snyder was scrubbed and present for the critical portions of the procedure and available for all others.
--- OUTSIDE RECORDS SUMMARY | 2018-05-03 10:31 | XMS REPORT | Summary of Care ---
Author Author [facility] Organization [facility] Address Unknown Phone Unavailable Encounter IMANI Farooq(KARLA) [id number] Date(s): 11/22/14 - 11/24/14 [facility] [address] [employer] provided by [facility] [employer] [facility] [employer] [place] [address]- Discharge Disposition: Home Attending Physician: Neto Snyder MD Admitting Physician: Neto Snyder MD Referring Physician: Physician, Non Associated MD Vital Signs 1 2 3 Most recent to oldest [Reference Range]: 167.64 cm (11/23/14 5:46 AM) Height 1 2 3 Most recent to oldest [Reference Range]: 98.1 DegF (11/24/14 8:05 AM) 97.8 DegF (11/24/14 4:16 AM) 97.9 DegF (11/24/14 12:00 AM) Temperature Oral [96.4-99.1 DegF] 1 2 3 Most recent to oldest [Reference Range]: 95/61 mmHg (11/24/14 8:05 AM) 119/71 mmHg (11/24/14 4:16 AM) 99/62 mmHg (11/24/14 12:00 AM) Blood Pressure [90-140/60-90 mmHg] 1 2 3 Most recent to oldest [Reference Range]: 16 BRMIN (11/24/14 8:05 AM) 16 BRMIN (11/24/14 4:16 AM) 16 BRMIN (11/24/14 12:00 AM) Respiratory Rate [14-20 BRMIN] 1 2 3 Most recent to oldest [Reference Range]: 70 bpm (11/24/14 8:05 AM) 66 bpm (11/24/14 4:16 AM) 88 bpm (11/24/14 12:00 AM) Peripheral Pulse Rate [60-100 bpm] 1 2 3 Most recent to oldest [Reference Range]: 70.4 kg (11/23/14 5:46 AM) 70 kg (11/22/14 3:06 PM) Weight 1 2 3 Most recent to oldest [Reference Range]: 25.05 m2 (11/23/14 5:46 AM) Body Mass Index Problem List Condition Effective Dates Status Health Status Informant Diabetes Active mellitus(Confirmed) Leukemia(Confirmed) Resolved Seizure(Confirmed) Active Allergies, Adverse Reactions, Alerts Substance Reaction Severity Status HYDROcodone-pseudoephedri Active ne metFORMIN Active simvastatin Active Medications citalopram 40 mg, 2 tab, Route: PO, Drug form: TAB, Daily, Dosing Weight 70.4, kg, Start da te: 11/24/14 9:00:00, Duration: 30 day, Stop date: 12/23/14 9:00:00 Notes: (Same As: CeleXA) Start Date: 11/24/14 Stop Date: 11/24/14 Status: Discontinued Dextrose 50% Syringe 6.25 gm, 12.5 mL, Route: IVP, Drug Form: INJ, Dosing Weight 70, kg, PRN, PRN Abn ormal Lab Result, Start date: 11/22/14 19:20:00, Duration: 30 day, Stop date: 19:19:00 Start Date: 11/22/14 Stop Date: 11/24/14 Status: Discontinued Dextrose 50% Syringe 12.5 gm, 25 mL, Route: IVP, Drug Form: INJ, Dosing Weight 70, kg, PRN, PRN Abnor mal Lab Result, Start date: 11/22/14 19:20:00, Duration: 30 day, Stop date: 09/30 19:19:00 Start Date: 11/22/14 Stop Date: 11/24/14 Status: Discontinued Dextrose 50% Syringe 25 gm, 50 mL, Route: IVP, Drug Form: INJ, Dosing Weight 70, kg, PRN, PRN Abnorma l Lab Result, Start date: 11/22/14 19:20:00, Duration: 30 day, Stop date: 19:19:00 Start Date: 11/22/14 Stop Date: 11/24/14 Status: Discontinued digoxin 250 microgram, 1 tab, Route: PO, Drug form: TAB, Daily, Dosing Weight 70.4, kg, Start date: 11/24/14 9:00:00, Duration: 30 day, Stop date: 12/23/14 9:00:00 Notes: Take on an Empty Stomach (Same as: Lanoxin) Start Date: 11/24/14 Stop Date: 11/24/14 Status: Discontinued divalproex sodium 500 mg oral tablet, extended release(Depakote ER) 1,500 mg, 3 tab, Route: PO, Drug form: ERTAB, Daily, Dosing Weight 70.4, kg, Sta rt date: 11/24/14 9:00:00, Duration: 30 day, Stop date: 12/23/14 9:00:00 Notes: (Same as: Depakote ER) Once daily dosing; indicated for migraines. Dival proex sodium extended-release tab. Do not chew or crush. "Do Not Crush" Start Date: 11/24/14 Stop Date: 11/24/14 Status: Discontinued docusate 100 mg, 1 cap, Route: PO, Drug form: CAP, Q12H, Dosing Weight 70, kg, Start date : 11/22/14 21:00:00, Duration: 30 day, Stop date: 12/22/14 9:00:00 Notes: (Same as: Colace) (Do Not Crush) Start Date: 11/22/14 Stop Date: 11/24/14 Status: Discontinued heparin 5,000 unit, 1 mL, Route: SUB-Q, Drug form: INJ, Q8H, Dosing Weight 70.4, kg, Sta rt date: 11/24/14 9:00:00, Duration: 30 day, Stop date: 12/24/14 8:00:00 Notes: porcine heparin Start Date: 11/24/14 Stop Date: 11/24/14 Status: Discontinued insulin regular 100 units/mL human recombinant 5 unit, 0.05 mL, Route: SUB-Q, Drug form: SOLN, PRN, Dosing Weight 70, kg, PRN A bnormal Lab Result, Start date: 11/22/14 19:20:00, Duration: 30 day, Stop date: 12/22/14 19:19:00 Notes: (Same as: Humulin R) Roll in palms of hands gently; Do not shake vigorou sly. "single patient use only"(Restricted to patients requiring a dose > 60 units) Stable for 28 days at room temperatureExpires in days from _ Date Start Date: 11/22/14 Stop Date: 11/24/14 Status: Discontinued insulin regular 100 units/mL human recombinant 3 unit, 0.03 mL, Route: SUB-Q, Drug form: SOLN, PRN, Dosing Weight 70, kg, PRN A bnormal Lab Result, Start date: 11/22/14 19:20:00, Duration: 30 day, Stop date: 12/22/14 19:19:00 Notes: (Same as: Humulin R) Roll in palms of hands gently; Do not shake vigorou sly. "single patient use only"(Restricted to patients requiring a dose > 60 units) Stable for 28 days at room temperatureExpires in days from _ Date Start Date: 11/22/14 Stop Date: 11/24/14 Status: Discontinued insulin regular 100 units/mL human recombinant 7 unit, 0.07 mL, Route: SUB-Q, Drug form: SOLN, PRN, Dosing Weight 70, kg, PRN A bnormal Lab Result, Start date: 11/22/14 19:20:00, Duration: 30 day, Stop date: 12/22/14 19:19:00 Notes: (Same as: Humulin R) Roll in palms of hands gently; Do not shake vigorou sly. "single patient use only"(Restricted to patients requiring a dose > 60 units) Stable for 28 days at room temperatureExpires in days from _ Date Start Date: 11/22/14 Stop Date: 11/24/14 Status: Discontinued Keppra 1,000 mg, 2 tab, Route: PO, Drug form: TAB, ONCE, Dosing Weight 70.4, kg, Start date: 11/23/14 11:04:00, Stop date: 11/23/14 11:04:00 Notes: (Same as:Keppra) Start Date: 11/23/14 Stop Date: 11/23/14 Status: Completed Keppra 1000 mg oral tablet 1,000 mg, 1 tab, Route: PO, ONCE, Dosing Weight 70, kg, Start date: 11/22/14 19: 23:00, Stop date: 11/22/14 19:23:00 Start Date: 11/22/14 Stop Date: 11/22/14 Status: Discontinued levETIRAcetam 500 mg, 1 tab, Route: PO, Drug form: TAB, Q12H, Dosing Weight 70, kg, Start date : 11/23/14 9:00:00, Duration: 30 day, Stop date: 12/22/14 21:00:00 Notes: (Same as:Keppra) Start Date: 11/23/14 Stop Date: 11/23/14 Status: Discontinued levETIRAcetam + Sodium Chloride 0.9% IV 100 mL 1,000 mg, Route: IVPB, ONCE, Dosing Weight 70, kg, Start date: 11/22/14 19:20:00 , Stop date: 11/22/14 19:20:00 Notes: Same as KeppraMix with 100 mL NS, LR or D5W MEDICATION WASTE Prod uct Size: 500 mgProduct Wasted: ___ mg Start Date: 11/22/14 Stop Date: 11/22/14 Status: Completed levETIRAcetam 500 mg oral tablet 1,000 mg, 2 tab, Route: PO, Drug form: TAB, Q12H, Dosing Weight 70.4, kg, Start date: 11/23/14 21:00:00, Duration: 30 day, Stop date: 12/23/14 9:00:00 Notes: (Same as:Keppra) Start Date: 11/23/14 Stop Date: 11/24/14 Status: Discontinued ondansetron 4 mg, 2 mL, Route: IVP, Drug form: INJ, Q8H, Dosing Weight 70, kg, PRN Nausea & Vomiting, Start date: 11/22/14 19:20:00, Duration: 30 day, Stop date: 12/22/14 19:19:00 Notes: (Same as: Zofran) MEDICATION WASTE Product Size: 4 mgProduct Was sourav: ___ mg Start Date: 11/22/14 Stop Date: 11/24/14 Status: Discontinued pantoprazole 40 mg, 1 tab, Route: PO, Drug form: ECTAB, Before Breakfast, Dosing Weight 70, k g, Start date: 11/23/14 7:30:00, Duration: 30 day, Stop date: 12/22/14 7:30:00 Notes: Tablet should not be chewed or crushed.(Same as: Protonix) Start Date: 11/23/14 Stop Date: 11/24/14 Status: Discontinued Requip 1 mg, 4 tab, Route: PO, Drug form: TAB, TID, Dosing Weight 70.4, kg, Start date: 11/23/14 13:00:00, Duration: 30 day, Stop date: 12/23/14 9:00:00 Notes: (Same as: Requip) Start Date: 11/23/14 Stop Date: 11/24/14 Status: Discontinued Saline Flush 0.9% 10 ml, Route: IVP, Drug Form: INJ, Dosing Weight 70, kg, PRN, PRN Line Flush, St art date: 11/22/14 19:20:00, Duration: 30 day, Stop date: 12/22/14 19:19:00 Notes: (Same as: BD Posiflush) Start Date: 11/22/14 Stop Date: 11/24/14 Status: Discontinued Saline Flush 0.9% 10 ml, Route: IVP, Drug Form: INJ, Dosing Weight 70, kg, Q12H, Start date: 11/22 21:00:00, Duration: 30 day, Stop date: 12/22/14 9:00:00 Notes: (Same as: BD Posiflush) Start Date: 11/22/14 Stop Date: 11/24/14 Status: Discontinued senna 8.6 mg, 1 tab, Route: PO, Drug Form: TAB, Dosing Weight 70, kg, Q12H, Start date : 11/22/14 21:00:00, Duration: 30 day, Stop date: 12/22/14 9:00:00 Notes: (Same as: Senokot) Start Date: 11/22/14 Stop Date: 11/24/14 Status: Discontinued Sodium Chloride 0.9% IV 1,000 mL 1,000 mL, Rate: 100 ml/hr, Infuse over: 10 hr, Route: IV, Dosing Weight 70 kg, T otal Volume: 1,000, Start date: 11/22/14 19:20:00, Duration: 30 day, Stop date: 12/22/14 19:19:00 Start Date: 11/22/14 Stop Date: 11/23/14 Status: Discontinued tramadol 100 mg, 2 tab, Route: PO, Drug form: TAB, Q6H, Dosing Weight 70.4, kg, PRN Pain Score 4-6, Start date: 11/23/14 15:28:00, Duration: 30 day, Stop date: 12/23/14 15:27:00 Notes: Not to exceed 400mg/day. (Same As: Ultram) Start Date: 11/23/14 Stop Date: 11/24/14 Status: Discontinued tramadol 50 mg oral tablet 50 mg=1 tab, PO, Q6H, PRN Pain, X 10 day, # 40 tab, 0 Refill(s) Start Date: 11/24/14 Stop Date: 12/04/14 Status: Ordered Tylenol 650 mg, 2 tab, Route: PO, Drug form: TAB, Q6H, Dosing Weight 70.4, kg, PRN Pain Score 1-3, Start date: 11/23/14 11:42:00, Duration: 30 day, Stop date: 12/23/14 11:41:00 Notes: Do not exceed 4 gm/day. (Same as: Tylenol) Start Date: 11/23/14 Stop Date: 11/24/14 Status: Discontinued Results BLOOD BANK RESULTS Most recent to 1 oldest [Reference Range]: ABO/Rh O POS *Unknown* (11/22/14 10:36 PM) Antibody Scrn Negative (11/22/14 10:36 PM) ELECTROLYTES Most recent to 1 oldest [Reference Range]: Sodium Lvl [135-145 138 mEq/L mEq/L] (11/22/14 10:17 PM) Potassium Lvl 5.0 mEq/L [3.5-5.1 mEq/L] (11/22/14 10:17 PM) Chloride Lvl [95-109 104 mEq/L mEq/L] (11/22/14 10:17 PM) CO2 [24-32 mEq/L] 29 mEq/L (11/22/14 10:17 PM) AGAP [10.0-20.0 10.0 mEq/L mEq/L] (11/22/14 10:17 PM) CHEM PANEL Most recent to 1 oldest [Reference Range]: Creatinine Lvl 0.8 mg/dL [0.5-1.4 mg/dL] (11/22/14 10:17 PM) eGFR 117 mL/min/1.73m2 1 *NA* (11/22/14: PM) BUN [7-22 mg/dL] 9 mg/dL (11/22/14 10:17 PM) B/C Ratio [6-25] 11 (11/22/14 10:17 PM) Glucose Lvl [70-99 82 mg/dL mg/dL] (11/22/14:17 PM) Total Protein 8.0 g/dL [6.4-8.4 g/dL] (11/22/14 10:17 PM) Albumin Lvl [3.5-5.0 3.4 g/dL g/dL] *LOW* (11/22/14:17 PM) Globulin [2.0-4.0 4.6 g/dL g/dL] *HI* (11/22/14:17 PM) A/G Ratio [0.7-1.6] 0.7 (11/22/14 10:17 PM) Calcium Lvl 9.3 mg/dL [8.5-10.5 mg/dL] (11/22/14 10:17 PM) ALT [0-65 unit/L] 78 unit/L *HI* (11/22/14:17 PM) AST [0-37 unit/L] 73 unit/L *HI* (11/22/14 10:17 PM) Alk Phos [39-136 111 unit/L unit/L] (11/22/14 10:17 PM) Bili Total [0.2-1.3 0.4 mg/dL mg/dL] (11/22/14 10:17 PM) Procalcitonin Lvl 0.05 ng/mL [0.00-0.10 ng/mL] (11/22/14 10:17 PM) 1Result Comment: The eGFR is calculated using [...] be mul tiplied by the estimated BMI. IMMUNOLOGY Most recent to 1 oldest [Reference Range]: CRP [<=2.9 mg/L] 3.1 mg/L *HI* (11/22/14:17 PM) HEMATOLOGY Most recent to 1 oldest [Reference Range]: WBC [3.7-10.4 K/CMM] 9.6 K/CMM (11/22/14:17 PM) RBC [4.70-6.10 3.90 M/CMM M/CMM] *LOW* (11/22/14:17 PM) Hgb [14.0-18.0 g/dL] 12.5 g/dL *LOW* (11/22/14:17 PM) Hct [42.0-54.0 %] 37.4 % *LOW* (11/22/14:17 PM) MCV [80.0-94.0 fL] 95.9 fL *HI* (11/22/14:17 PM) MCH [27.0-31.0 pg] 32.1 pg *HI* (11/22/14 10:17 PM) MCHC [32.0-36.0 33.4 g/dL g/dL] (11/22/14:17 PM) RDW [11.5-14.5 %] 13.1 % (11/22/14 10:17 PM) Platelet [133-450 423 K/CMM K/CMM] (11/22/14 10:17 PM) MPV [7.4-10.4 fL] 6.6 fL *LOW* (11/22/14 10:17 PM) Segs [45.0-75.0 %] 53.7 % (11/22/14 10:17 PM) Lymphocytes 30.8 % [20.0-40.0 %] (11/22/14 10:17 PM) Monocytes [2.0-12.0 11.3 % %] (11/22/14 10:17 PM) Eosinophils [0.0-4.0 3.2 % %] (11/22/14 10:17 PM) Basophils [0.0-1.0 1.0 % %] (11/22/14 10:17 PM) Segs-Bands # 5.2 K/CMM [1.5-8.1 K/CMM] (11/22/14 10:17 PM) Lymphocytes # 3.0 K/CMM [1.0-5.5 K/CMM] (11/22/14 10:17 PM) Monocytes # [0.0-0.8 1.1 K/CMM K/CMM] *HI* (11/22/14 10:17 PM) Eosinophils # 0.3 K/CMM [0.0-0.5 K/CMM] (11/22/14 10:17 PM) Basophils # [0.0-0.2 0.1 K/CMM K/CMM] (11/22/14 10:17 PM) Sed Rate [0-15 54 mm/hr mm/hr] *HI* (11/22/14 10:17 PM) PT [12.0-14.7 13.2 seconds seconds] (11/22/14 4:52 PM) INR [0.85-1.17] 1.00 (11/22/14 4:52 PM) PTT [22.9-35.8 34.9 seconds seconds] (11/22/14 4:52 PM) Rapid TEG Sample Citrated Whole Blood Type (11/22/14 4:52 PM) ACT (TEG) [86-118 105 seconds seconds] (11/22/14 4:52 PM) Split Point 0.5 minutes *NA* (11/22/14 4:52 PM) R-time [0.4-0.7 0.6 minutes minutes] (11/22/14 4:52 PM) K-time [0.6-2.3 0.8 minutes minutes] (11/22/14 4:52 PM) Angle [64-80 81 degrees degrees] *HI* (11/22/14 4:52 PM) Max Amp [52-71 mm] 68 mm (11/22/14 4:52 PM) G-value [5.0-11.6 K 10.8 K d/sc d/sc] (11/22/14 4:52 PM) Estimated % Lysis 5.7 % 2 [0.0-7.5 %] (11/22/14 4:52 PM) 2Result Comment: "Significant Findings called to Graeme Hendricks_at 11/22/2014 17:46__by ct__.Read Back OK." Immunizations Vaccine Date Refusal Reason pneumococcal 23-valent vaccine 11/14/14 Procedures Procedure Date Related Diagnosis Body Site Gallbladder stone removal 07/18/13 Cholecystectomy Social History Social History Type Response Smoking Status Never smoker; Exposure to Tobacco Smoke None; Cigarette Smoking Last 365 Days No; Reg Smoking Cessation Counseling No Assessment and Plan No data available for this section
--- OUTSIDE RECORDS SUMMARY | 2018-05-03 10:31 | XMS REPORT | Summary of Care ---
Author Author [facility] Organization [facility] Address Unknown Phone Unavailable Encounter IMANI Farooq(KARLA) [id number] Date(s): 11/03/14 - 11/03/14 [facility] [address] [place] [address]- Discharge Disposition: DC[facility]TF to [facility] Attending Physician: Jeremy Bentley DO Vital Signs Most recent to 1 2 oldest [Reference Range]: Height 162.56 cm (11/03/14 3:41 PM) Most recent to 1 2 oldest [Reference Range]: Temperature Oral 98.5 DegF 97.6 DegF [96.4-99.1 DegF] (11/03/14 6:45 PM) (11/03/14 3:41 PM) Most recent to 1 2 oldest [Reference Range]: Blood Pressure 124/74 mmHg 122/84 mmHg [90-140/60-90 mmHg] (11/03/14 6:45 PM) (11/03/14 3:41 PM) Most recent to 1 2 oldest [Reference Range]: Respiratory Rate 18 BRMIN 18 BRMIN [14-20 BRMIN] (11/03/14 6:45 PM) (11/03/14 3:41 PM) Most recent to 1 2 oldest [Reference Range]: Peripheral Pulse 93 bpm 89 bpm Rate [60-100 bpm] (11/03/14 6:45 PM) (11/03/14 3:41 PM) Most recent to 1 2 oldest [Reference Range]: Weight 68.182 kg (11/03/14 3:41 PM) Most recent to 1 2 oldest [Reference Range]: Body Mass Index 25.8 m2 (11/03/14 3:41 PM) Problem List Condition Effective Dates Status Health Status Informant Diabetes Active mellitus(Confirmed) Leukemia(Confirmed) Resolved Seizure(Confirmed) Active Allergies, Adverse Reactions, Alerts Substance Reaction Severity Status HYDROcodone-pseudoephedri Active ne simvastatin Active Medications Benadryl 25 mg, 0.5 mL, Route: IVP, Drug form: INJ, ONCE, Dosing Weight 68.182, kg, Prior ity: STAT, Start date: 11/03/14 16:31:00, Stop date: 11/03/14 16:31:00 Notes: (Same as: Benadryl) Start Date: 11/03/14 Stop Date: 11/03/14 Status: Completed NS (Bolus) IV 1,000 mL, 1,000 ml/hr, Infuse Over: 1 hr, Route: IV, 1,000, Drug form: INJ, ONCE , Priority: STAT, Dosing Weight 68.182 kg, Start date: 11/03/14 16:31:00, Durati on: 1 doses or times, Stop date: 11/03/14 16:31:00 Start Date: 11/03/14 Stop Date: 11/03/14 Status: Completed Reglan 20 mg, 4 mL, Route: IVP, Drug form: INJ, ONCE, Dosing Weight 68.182, kg, Priorit y: STAT, Start date: 11/03/14 16:31:00, Stop date: 11/03/14 16:31:00 Notes: (Same as: Reglan) Start Date: 11/03/14 Stop Date: 11/03/14 Status: Completed Zofran 4 mg, 2 mL, Route: IVP, Drug form: INJ, ONCE, Dosing Weight 68.182, kg, Priority : STAT, Start date: 11/03/14 17:54:00, Stop date: 11/03/14 17:54:00 Notes: (Same as: Zofran) MEDICATION WASTE Product Size: 4 mgProduct Was sourav: ___ mg Start Date: 11/03/14 Stop Date: 11/03/14 Status: Completed Results ELECTROLYTES Most recent to 1 oldest [Reference Range]: Sodium Lvl [135-145 128 mEq/L mEq/L] *LOW* (11/03/14 6:09 PM) Potassium Lvl 4.1 mEq/L [3.5-5.1 mEq/L] (11/03/14 6:09 PM) Chloride Lvl [95-109 94 mEq/L mEq/L] *LOW* (11/03/14 6:09 PM) CO2 [24-32 mEq/L] 24 mEq/L (11/03/14 6:09 PM) AGAP [10.0-20.0 14.1 mEq/L mEq/L] (11/03/14 6:09 PM) CHEM PANEL Most recent to 1 oldest [Reference Range]: Creatinine Lvl 0.7 mg/dL [0.5-1.4 mg/dL] (11/03/14 6:09 PM) eGFR 124 mL/min/1.73m2 1 *NA* (11/03/14 6:09 PM) BUN [7-22 mg/dL] 11 mg/dL (11/03/14 6:09 PM) B/C Ratio [6-25] 16 (11/03/14 6:09 PM) Glucose Lvl [70-99 95 mg/dL mg/dL] (11/03/14 6:09 PM) Total Protein 8.3 g/dL [6.4-8.4 g/dL] (11/03/14 6:09 PM) Albumin Lvl [3.5-5.0 3.8 g/dL g/dL] (11/03/14 6:09 PM) Globulin [2.0-4.0 4.5 g/dL g/dL] *HI* (11/03/14 6:09 PM) A/G Ratio [0.7-1.6] 0.8 (11/03/14 6:09 PM) Calcium Lvl 8.8 mg/dL [8.5-10.5 mg/dL] (11/03/14 6:09 PM) ALT [0-65 unit/L] 56 unit/L (11/03/14 6:09 PM) AST [0-37 unit/L] 54 unit/L *HI* (11/03/14 6:09 PM) Alk Phos [39-136 62 unit/L unit/L] (11/03/14 6:09 PM) Bili Total [0.2-1.3 0.2 mg/dL mg/dL] (11/03/14 6:09 PM) 1Result Comment: The eGFR is calculated [...] be mul tiplied by the estimated BMI. HEMATOLOGY Most recent to 1 oldest [Reference Range]: WBC [3.7-10.4 K/CMM] 10.2 K/CMM (11/03/14 6:09 PM) RBC [4.70-6.10 4.05 M/CMM M/CMM] *LOW* (11/03/14:09 PM) Hgb [14.0-18.0 g/dL] 13.5 g/dL *LOW* (11/03/14 6:09 PM) Hct [42.0-54.0 %] 38.1 % *LOW* (11/03/14:09 PM) MCV [80.0-94.0 fL] 94.0 fL (11/03/14 6:09 PM) MCH [27.0-31.0 pg] 33.3 pg *HI* (11/03/14:09 PM) MCHC [32.0-36.0 35.4 g/dL g/dL] (11/03/14 6:09 PM) RDW [11.5-14.5 %] 12.9 % (11/03/14 6:09 PM) Platelet [133-450 342 K/CMM K/CMM] (11/03/14 6:09 PM) MPV [7.4-10.4 fL] 6.6 fL *LOW* (11/03/14 6:09 PM) Segs [45.0-75.0 %] 69.8 % (11/03/14 6:09 PM) Lymphocytes 19.3 % [20.0-40.0 %] *LOW* (7/19/15 6:09 PM) Monocytes [2.0-12.0 8.1 % %] (11/03/14 6:09 PM) Eosinophils [0.0-4.0 1.9 % %] (11/03/14 6:09 PM) Basophils [0.0-1.0 0.9 % %] (11/03/14 6:09 PM) Segs-Bands # 7.2 K/CMM [1.5-8.1 K/CMM] (11/03/14 6:09 PM) Lymphocytes # 2.0 K/CMM [1.0-5.5 K/CMM] (11/03/14 6:09 PM) Monocytes # [0.0-0.8 0.8 K/CMM K/CMM] (11/03/14 6:09 PM) Eosinophils # 0.2 K/CMM [0.0-0.5 K/CMM] (11/03/14 6:09 PM) Basophils # [0.0-0.2 0.1 K/CMM K/CMM] (11/03/14 6:09 PM) RBC Morph Normal (11/03/14 6:09 PM) Neut Vac Slight *NA* (11/03/14 6:09 PM) Plt Morph Normal (11/03/14 6:09 PM) PT [12.0-14.7 13.8 seconds seconds] (11/03/14 7:02 PM) INR [0.85-1.17] 1.06 (11/03/14 7:02 PM) PTT [22.9-35.8 36.3 seconds seconds] *HI* (11/03/14 7:02 PM) Immunizations No data available for this section Procedures Procedure Date Related Diagnosis Body Site Gallbladder stone removal 07/18/13 Cholecystectomy Social History Social History Type Response Smoking Status Never smoker; Exposure to Tobacco Smoke None; Cigarette Smoking Last 365 Days No; Reg Smoking Cessation Counseling No Assessment and Plan No data available for this section
--- OUTSIDE RECORDS SUMMARY | 2018-05-03 10:31 | XMS REPORT | Summary of Care ---
Author Author [facility] Organization [facility] Address Unknown Phone Unavailable Encounter IMANI Farooq(KARLA) [id number] Date(s): 11/01/14 - 11/02/14 [facility] [address] [place] [address]- Discharge Diagnosis: Headache Discharge Disposition: Home Attending Physician: Moses Manriquez MD Vital Signs 1 2 3 Most recent to oldest [Reference Range]: 170.18 cm (11/01/14 7:34 PM) Height 1 2 3 Most recent to oldest [Reference Range]: 97.9 DegF (11/02/14 2:03 AM) 98.0 DegF (11/02/14 12:00 AM) 98.4 DegF (11/01/14 7:34 PM) Temperature Oral [96.4-99.1 DegF] 1 2 3 Most recent to oldest [Reference Range]: 121/81 mmHg (11/02/14 2:03 AM) 118/65 mmHg (11/02/14 12:00 AM) 125/85 mmHg (11/01/14 7:34 PM) Blood Pressure [90-140/60-90 mmHg] 1 2 3 Most recent to oldest [Reference Range]: 18 BRMIN (11/02/14 2:03 AM) 18 BRMIN (11/02/14 12:00 AM) 18 BRMIN (11/01/14 7:34 PM) Respiratory Rate [14-20 BRMIN] 1 2 3 Most recent to oldest [Reference Range]: 90 bpm (11/02/14 2:03 AM) 90 bpm (11/02/14 12:00 AM) 102 bpm *HI* (11/01/14 7:34 PM) Peripheral Pulse Rate [60-100 bpm] 1 2 3 Most recent to oldest [Reference Range]: 71.364 kg (11/01/14 7:34 PM) Weight 1 2 3 Most recent to oldest [Reference Range]: 24.64 m2 (11/01/14 7:34 PM) Body Mass Index Problem List Condition Effective Dates Status Health Status Informant Diabetes Active mellitus(Confirmed) Leukemia(Confirmed) Resolved Seizure(Confirmed) Active Allergies, Adverse Reactions, Alerts Substance Reaction Severity Status HYDROcodone-pseudoephedri Active ne simvastatin Active Medications diphenhydrAMINE 25 mg, Route: IVP, ONCE, Dosing Weight 71.364, kg, Priority: STAT, Start date: 0 11/01/14 23:22:00, Stop date: 11/01/14 23:22:00 Start Date: 11/01/14 Stop Date: 11/02/14 Status: Completed Fioricet 300 mg-50 mg-40 mg oral capsule 1 cap, PO, Q4H, PRN PRN Headache, Do not exceed 6 capsules in 24 hours, X 5 day, # 30 cap, 0 Refill(s) Special Instructions: Do not exceed 6 capsules in 24 hours Start Date: 11/02/14 Stop Date: 11/07/14 Status: Ordered metoclopramide 10 mg, Route: IVP, Drug form: INJ, ONCE, Dosing Weight 71.364, kg, Priority: STA T, Start date: 11/01/14 23:22:00, Stop date: 11/01/14 23:22:00 Start Date: 11/01/14 Stop Date: 11/02/14 Status: Completed Sodium Chloride 0.9% (Bolus) IV 1,000 mL, 1,000 ml/hr, Infuse Over: 1 Hour, Route: IV, ONCE, Priority: STAT, Dos ing Weight 71.364 kg, Start date: 11/01/14 23:16:00, Duration: 1 doses or times, Stop date: 11/01/14 23:16:00 Start Date: 11/01/14 Stop Date: 11/02/14 Status: Completed Results ELECTROLYTES Most recent to 1 oldest [Reference Range]: Sodium Lvl [135-145 132 mEq/L mEq/L] *LOW* (11/01/14 9:22 PM) Potassium Lvl 4.0 mEq/L [3.5-5.1 mEq/L] (11/01/14 9:22 PM) Chloride Lvl [95-109 93 mEq/L mEq/L] *LOW* (11/01/14 9:22 PM) CO2 [24-32 mEq/L] 33 mEq/L *HI* (11/01/14: PM) AGAP [10.0-20.0 10.0 mEq/L mEq/L] (11/01/14:22 PM) CHEM PANEL Most recent to 1 oldest [Reference Range]: Creatinine Lvl 0.7 mg/dL [0.5-1.4 mg/dL] (11/01/14:22 PM) eGFR 124 mL/min/1.73m2 1 *NA* (11/01/14: PM) BUN [7-22 mg/dL] 8 mg/dL (11/01/14:22 PM) B/C Ratio [6-25] 11 (11/01/14:22 PM) Glucose Lvl [70-99 73 mg/dL mg/dL] (11/01/14: PM) Total Protein 7.8 g/dL [6.4-8.4 g/dL] (11/01/14:22 PM) Albumin Lvl [3.5-5.0 3.7 g/dL g/dL] (11/01/14:22 PM) Globulin [2.0-4.0 4.1 g/dL g/dL] *HI* (11/01/14:22 PM) A/G Ratio [0.7-1.6] 0.9 (11/01/14: PM) Calcium Lvl 8.8 mg/dL [8.5-10.5 mg/dL] (11/01/14:22 PM) ALT [0-65 unit/L] 53 unit/L (11/01/14:22 PM) AST [0-37 unit/L] 38 unit/L *HI* (11/01/14 PM) Alk Phos [39-136 67 unit/L unit/L] (11/01/14 9:22 PM) Bili Total [0.2-1.3 0.2 mg/dL mg/dL] (11/01/14:22 PM) 1Result Comment: The eGFR is calculated [...] be mul tiplied by the estimated BMI. TOXICOLOGY Most recent to 1 oldest [Reference Range]: Digoxin Lvl [0.8-2.0 0.7 ng/mL ng/mL] *LOW* (11/01/14 9:22 PM) Valproic Acid Lvl 110 ug/ml [50-100 ug/ml] *HI* (11/01/14: PM) HEMATOLOGY Most recent to 1 oldest [Reference Range]: WBC [3.7-10.4 K/CMM] 10.0 K/CMM (11/01/14:22 PM) RBC [4.70-6.10 4.01 M/CMM M/CMM] *LOW* (11/01/14: PM) Hgb [14.0-18.0 g/dL] 13.6 g/dL *LOW* (11/01/14:22 PM) Hct [42.0-54.0 %] 37.9 % *LOW* (11/01/14: PM) MCV [80.0-94.0 fL] 94.3 fL *HI* (11/01/14:22 PM) MCH [27.0-31.0 pg] 33.9 pg *HI* (11/01/14: PM) MCHC [32.0-36.0 35.9 g/dL g/dL] (11/01/14: PM) RDW [11.5-14.5 %] 12.9 % (11/01/14: PM) Platelet [133-450 345 K/CMM K/CMM] (7/17/15 9:22 PM) MPV [7.4-10.4 fL] 6.7 fL *LOW* (11/01/14 9:22 PM) Segs [45.0-75.0 %] 55.2 % (11/01/14 9:22 PM) Lymphocytes 31.9 % [20.0-40.0 %] (11/01/14 9:22 PM) Monocytes [2.0-12.0 9.3 % %] (11/01/14 9:22 PM) Eosinophils [0.0-4.0 2.9 % %] (11/01/14 9:22 PM) Basophils [0.0-1.0 0.7 % %] (11/01/14 9:22 PM) Segs-Bands # 5.5 K/CMM [1.5-8.1 K/CMM] (11/01/14 9:22 PM) Lymphocytes # 3.2 K/CMM [1.0-5.5 K/CMM] (11/01/14 9:22 PM) Monocytes # [0.0-0.8 0.9 K/CMM K/CMM] *HI* (11/01/14 9:22 PM) Eosinophils # 0.3 K/CMM [0.0-0.5 K/CMM] (11/01/14 9:22 PM) Basophils # [0.0-0.2 0.1 K/CMM K/CMM] (11/01/14 9:22 PM) Immunizations No data available for this section Procedures Procedure Date Related Diagnosis Body Site Gallbladder stone removal 07/18/13 Cholecystectomy Social History Social History Type Response Smoking Status Never smoker; Exposure to Tobacco Smoke None; Cigarette Smoking Last 365 Days No; Reg Smoking Cessation Counseling No Assessment and Plan No data available for this section
--- OUTSIDE RECORDS SUMMARY | 2018-05-03 10:31 | XMS REPORT | Summary of Care ---
Author Author [facility] Organization [facility] Address Unknown Phone Unavailable Encounter IMANI Farooq(KARLA) [id number] Date(s): 11/11/14 - 11/15/14 [facility] [address] [employer] provided by [facility] [place] [address]- Discharge Disposition: Home Attending Physician: Rad Canchola MD Admitting Physician: Cm Grider MD Referring Physician: Bahman Stuart DO Vital Signs 1 2 3 Most recent to oldest [Reference Range]: 170.2 cm (11/11/14 10:39 PM) Height 1 2 3 Most recent to oldest [Reference Range]: 98.5 DegF (11/15/14 4:33 PM) 98.6 DegF (11/15/14 12:55 PM) 98.5 DegF (11/15/14 4:17 AM) Temperature Oral [96.4-99.1 DegF] 1 2 3 Most recent to oldest [Reference Range]: 93/55 mmHg (11/15/14 4:33 PM) 91/61 mmHg (11/15/14 12:55 PM) 89/54 mmHg *LOW* (11/15/14 4:17 AM) Blood Pressure [90-140/60-90 mmHg] 1 2 3 Most recent to oldest [Reference Range]: 20 BRMIN (11/15/14 4:33 PM) 18 BRMIN (11/15/14 12:55 PM) 18 BRMIN (11/15/14 4:17 AM) Respiratory Rate [14-20 BRMIN] 1 2 3 Most recent to oldest [Reference Range]: 74 bpm (11/15/14 4:33 PM) 76 bpm (11/15/14 12:55 PM) 72 bpm (11/15/14 4:17 AM) Peripheral Pulse Rate [60-100 bpm] 1 2 3 Most recent to oldest [Reference Range]: 61.8 kg (11/11/14 10:39 PM) 61.8 kg (11/11/14 10:35 PM) 61.8 kg (11/11/14 10:34 PM) Weight 1 2 3 Most recent to oldest [Reference Range]: 21.33 m2 (11/11/14 10:39 PM) Body Mass Index Problem List Condition Effective Dates Status Health Status Informant Diabetes Active mellitus(Confirmed) Leukemia(Confirmed) Resolved Seizure(Confirmed) Active Allergies, Adverse Reactions, Alerts Substance Reaction Severity Status HYDROcodone-pseudoephedri Active ne metFORMIN Active simvastatin Active Medications Dextrose 50% Syringe 6.25 gm, 12.5 mL, Route: IVP, Drug Form: INJ, Dosing Weight 61.8, kg, PRN, PRN A bnormal Lab Result, Start date: 11/11/14 22:28:00, Duration: 30 day, Stop date: 12/11/14 22:27:00 Start Date: 11/11/14 Stop Date: 11/15/14 Status: Discontinued Dextrose 50% Syringe 12.5 gm, 25 mL, Route: IVP, Drug Form: INJ, Dosing Weight 61.8, kg, PRN, PRN Abn ormal Lab Result, Start date: 11/11/14 22:28:00, Duration: 30 day, Stop date: 22:27:00 Start Date: 11/11/14 Stop Date: 11/15/14 Status: Discontinued Dextrose 50% Syringe 25 gm, 50 mL, Route: IVP, Drug Form: INJ, Dosing Weight 61.8, kg, PRN, PRN Abnor mal Lab Result, Start date: 11/11/14 22:28:00, Duration: 30 day, Stop date: 11/17 09/30 22:27:00 Start Date: 11/11/14 Stop Date: 11/15/14 Status: Discontinued divalproex sodium 500 mg oral enteric coated tablet (Depakote) 500 mg, 1 tab, Route: PO, Drug form: ECTAB, Q8H, Dosing Weight 61.8, kg, Start d ate: 11/12/14 8:00:00, Stop date: 12/12/14 0:00:00, Delayed Release tablet Special Instructions: Delayed Release tablet Notes: (Same as: Depakote Delayed Release) Do not confuse with the extended-rel ease tablet. Delayed absorption enteric coated tablet. Do not crush Start Date: 11/12/14 Stop Date: 11/15/14 Status: Discontinued divalproex sodium 500 mg oral tablet, extended release(Depakote ER) 1,500 mg=3 tab, PO, Daily, 0 Refill(s) Start Date: 11/15/14 Status: Ordered docusate 100 mg, 1 cap, Route: PO, Drug form: CAP, Q12H, Dosing Weight 61.8, kg, Start da te: 11/12/14 9:00:00, Duration: 30 day, Stop date: 12/11/14 21:00:00 Notes: (Same as: Colace) (Do Not Crush) Start Date: 11/12/14 Stop Date: 11/15/14 Status: Discontinued docusate sodium 100 mg oral capsule 100 mg=1 cap, PO, Q12H, # 20 cap, 0 Refill(s) Start Date: 11/15/14 Stop Date: 11/25/14 Status: Ordered Flomax 0.4 mg, 1 cap, Route: PO, Drug form: CAP, After Breakfast, Dosing Weight 61.8, k g, Start date: 11/12/14 11:30:00, Duration: 30 day, Stop date: 12/12/14 8:30:00 Notes: (Same As: Flomax) Start Date: 11/12/14 Stop Date: 11/15/14 Status: Discontinued heparin 5,000 unit, 1 mL, Route: SUB-Q, Drug form: INJ, Q8H, Dosing Weight 61.8, kg, Sta rt date: 11/12/14 16:00:00, Duration: 30 day, Stop date: 12/12/14 8:00:00 Notes: porcine heparin Start Date: 11/12/14 Stop Date: 11/15/14 Status: Discontinued ibuprofen 400 mg, 1 tab, Route: PO, Drug form: TAB, Q4H, Dosing Weight 61.8, kg, PRN Pain Score 1-3, Start date: 11/12/14 10:41:00, Duration: 30 day, Stop date: 12/12/14 10:40:00 Notes: (Same as: Motrin)"Do Not Crush" Give with food. Start Date: 11/12/14 Stop Date: 11/15/14 Status: Discontinued insulin regular 100 units/mL human recombinant 7 unit, 0.07 mL, Route: SUB-Q, Drug form: SOLN, PRN, Dosing Weight 61.8, kg, PRN Abnormal Lab Result, Start date: 11/11/14 22:28:00, Duration: 30 day, Stop date: 12/11/14 22:27:00 Notes: (Same as: Humulin R) Roll in palms of hands gently; Do not shake vigorou sly. "single patient use only"(Restricted to patients requiring a dose > 60 units) Stable for 28 days at room temperatureExpires in days from _ Date Start Date: 11/11/14 Stop Date: 11/15/14 Status: Discontinued insulin regular 100 units/mL human recombinant 5 unit, 0.05 mL, Route: SUB-Q, Drug form: SOLN, PRN, Dosing Weight 61.8, kg, PRN Abnormal Lab Result, Start date: 11/11/14 22:28:00, Duration: 30 day, Stop date: 12/11/14 22:27:00 Notes: (Same as: Humulin R) Roll in palms of hands gently; Do not shake vigorou sly. "single patient use only"(Restricted to patients requiring a dose > 60 units) Stable for 28 days at room temperatureExpires in days from _ Date Start Date: 11/11/14 Stop Date: 11/15/14 Status: Discontinued insulin regular 100 units/mL human recombinant 3 unit, 0.03 mL, Route: SUB-Q, Drug form: SOLN, PRN, Dosing Weight 61.8, kg, PRN Abnormal Lab Result, Start date: 11/11/14 22:28:00, Duration: 30 day, Stop date: 12/11/14 22:27:00 Notes: (Same as: Humulin R) Roll in palms of hands gently; Do not shake vigorou sly. "single patient use only"(Restricted to patients requiring a dose > 60 units) Stable for 28 days at room temperatureExpires in days from _ Date Start Date: 11/11/14 Stop Date: 11/15/14 Status: Discontinued Keppra + Sodium Chloride 0.9% IV 100 mL 1,000 mg, Route: IV, ONCE, Dosing Weight 68.182, kg, Start date: 11/11/14 17:07: 00, Stop date: 11/11/14 17:07:00 Notes: Same as KeppraMix with 100 mL NS, LR or D5W MEDICATION WASTE Prod uct Size: 500 mgProduct Wasted: ___ mg Start Date: 11/11/14 Stop Date: 11/11/14 Status: Completed levETIRAcetam 1,000 mg, Route: IVPB, ONCE, Dosing Weight 68.182, kg, Start date: 11/11/14 17:1 3:00, Stop date: 11/11/14 17:13:00 Start Date: 11/11/14 Stop Date: 11/11/14 Status: Deleted levETIRAcetam 1,000 mg, 2 tab, Route: PO, Drug form: TAB, Q12H, Dosing Weight 68.182, kg, Star t date: 11/11/14 21:00:00, Duration: 30 day, Stop date: 12/11/14 9:00:00 Notes: (Same as:Keppra) Start Date: 11/11/14 Stop Date: 11/15/14 Status: Discontinued levETIRAcetam 500 mg oral tablet 1,000 mg=2 tab, PO, Q12H, # 16 tab, 0 Refill(s) Start Date: 11/15/14 Stop Date: 11/19/14 Status: Ordered magnesium sulfate 2 gm, 50 mL, Route: IVPB, Drug form: INJ, Q2H, Start date: 11/12/14 4:00:00, Dur ation: 2 doses or times, Stop date: 11/12/14 6:00:00 Start Date: 11/12/14 Stop Date: 11/12/14 Status: Completed pneumococcal 23-valent vaccine 0.5 mL, Route: IM, Drug Form: INJ, Daily, Start date: 11/14/14 9:00:00, Duration : 1 doses or times, Stop date: 11/14/14 9:00:00 Notes: (Same as: Pneumovax 23) Start Date: 11/14/14 Stop Date: 11/14/14 Status: Completed Protonix 40 mg oral enteric coated tablet 40 mg=1 tab, PO, Daily, # 30 tab, 0 Refill(s) Start Date: 11/15/14 Status: Ordered Saline Flush 0.9% 10 ml, Route: IVP, Drug Form: INJ, Dosing Weight 68.182, kg, PRN, PRN Line Flush , Start date: 11/11/14 17:13:00, Duration: 30 day, Stop date: 12/11/14 17:12:00 Notes: (Same as: BD Posiflush) Start Date: 11/11/14 Stop Date: 11/15/14 Status: Discontinued Saline Flush 0.9% 10 ml, Route: IVP, Drug Form: INJ, Dosing Weight 68.182, kg, Q12H, Start date: 0 11/11/14 21:00:00, Duration: 30 day, Stop date: 12/11/14 9:00:00 Notes: (Same as: BD Posiflush) Start Date: 11/11/14 Stop Date: 11/15/14 Status: Discontinued senna 8.6 mg, 1 tab, Route: PO, Drug Form: TAB, Dosing Weight 61.8, kg, Q12H, Start da te: 11/12/14 9:00:00, Duration: 30 day, Stop date: 12/11/14 21:00:00 Notes: (Same as: Senokot) Start Date: 11/12/14 Stop Date: 11/15/14 Status: Discontinued senna 8.6 mg oral tablet 8.6 mg=1 tab, PO, Q12H, X 10 day, # 20 tab, 0 Refill(s) Start Date: 11/15/14 Stop Date: 11/25/14 Status: Ordered Sodium Chloride 0.9% IV 1,000 mL 1,000 mL, Rate: 100 ml/hr, Infuse over: 10 hr, Route: IV, Dosing Weight 68.182 k g, Total Volume: 1,000, Start date: 11/11/14 17:13:00, Duration: 30 day, Stop da te: 12/11/14 17:12:00 Start Date: 11/11/14 Stop Date: 11/12/14 Status: Discontinued sodium chloride 1 gm oral tablet 3 gm, 3 tab, Route: PO, Drug form: TAB, Q6H, Dosing Weight 61.8, kg, Start date: 11/12/14 6:00:00, Duration: 30 day, Stop date: 12/12/14 0:00:00 Start Date: 11/12/14 Stop Date: 11/15/14 Status: Discontinued tramadol 50 mg oral tablet 50 mg=1 tab, PO, Q6H, PRN Pain, X 10 day, # 40 tab, 0 Refill(s) Start Date: 11/15/14 Stop Date: 11/25/14 Status: Ordered tramadol 50 mg oral tablet 50 mg, 1 tab, Route: PO, Drug form: TAB, Q4H, Dosing Weight 61.8, kg, PRN Pain S core 1-3, Start date: 11/11/14 22:26:00, Duration: 30 day, Stop date: 12/11/14 2 2:25:00 Notes: Not to exceed 400mg/day. (Same As: Ultram) Start Date: 11/11/14 Stop Date: 11/12/14 Status: Discontinued Results ELECTROLYTES 1 2 3 Most recent to oldest [Reference Range]: 142 mEq/L (11/15/14 12:04 PM) 135 mEq/L (11/13/14 1:07 AM) 128 mEq/L *LOW* (11/12/14 12:50 AM) Sodium Lvl [135-145 mEq/L] 4.3 mEq/L (11/13/14 1:07 AM) 4.1 mEq/L (11/12/14 12:50 AM) 3.6 mEq/L (11/11/14 6:25 PM) Potassium Lvl [3.5-5.1 mEq/L] 99 mEq/L (11/13/14 1:07 AM) 96 mEq/L (11/12/14 12:50 AM) 95 mEq/L (11/11/14 6:25 PM) Chloride Lvl [95-109 mEq/L] 27 mEq/L (11/13/14 1:07 AM) 24 mEq/L (11/12/14 12:50 AM) 25 mEq/L (11/11/14 6:25 PM) CO2 [24-32 mEq/L] 13.3 mEq/L (11/13/14 1:07 AM) 12.1 mEq/L (11/12/14 12:50 AM) 11.6 mEq/L (11/11/14 6:25 PM) AGAP [10.0-20.0 mEq/L] CHEM PANEL 1 2 3 Most recent to oldest [Reference Range]: 0.8 mg/dL (11/13/14 1:07 AM) 0.8 mg/dL (11/12/14 12:50 AM) 0.6 mg/dL (11/11/14 6:25 PM) Creatinine Lvl [0.5-1.4 mg/dL] 117 mL/min/1.73m2 1 *NA* (11/13/14 1:07 AM) 117 mL/min/1.73m2 2 *NA* (11/12/14 1:48 AM) 132 mL/min/1.73m2 3 *NA* (11/11/14 6:25 PM) eGFR 14 mg/dL (11/13/14 1:07 AM) 12 mg/dL (11/12/14 12:50 AM) 10 mg/dL (11/11/14 6:25 PM) BUN [7-22 mg/dL] 18 (11/11/14 2:02 PM) B/C Ratio [6-25] 93 mg/dL (11/13/14 1:07 AM) 94 mg/dL (11/12/14 12:50 AM) 115 mg/dL *HI* (11/11/14 6:25 PM) Glucose Lvl [70-99 mg/dL] 8.5 g/dL *HI* (11/11/14 2:02 PM) Total Protein [6.4-8.4 g/dL] 3.7 g/dL (11/11/14 2:02 PM) Albumin Lvl [3.5-5.0 g/dL] 4.8 g/dL *HI* (11/11/14 2:02 PM) Globulin [2.0-4.0 g/dL] 0.8 (11/11/14 2:02 PM) A/G Ratio [0.7-1.6] 8.3 mg/dL *LOW* (11/13/14 1:07 AM) 8.5 mg/dL (11/12/14 12:50 AM) 8.1 mg/dL *LOW* (11/11/14 6:25 PM) Calcium Lvl [8.5-10.5 mg/dL] 3.4 mg/dL (11/13/14 1:07 AM) 3.6 mg/dL (11/12/14 1:48 AM) 3.5 mg/dL (11/11/14 2:02 PM) Phosphorus [2.5-4.5 mg/dL] 2.1 mg/dL (11/13/14 1:07 AM) 1.6 mg/dL *LOW* (11/12/14 1:48 AM) 1.7 mg/dL *LOW* (11/11/14 2:02 PM) Magnesium Lvl [1.8-2.4 mg/dL] 59 unit/L (11/11/14 2:02 PM) ALT [0-65 unit/L] 80 unit/L *HI* (11/11/14 2:02 PM) AST [0-37 unit/L] 64 unit/L (11/11/14 2:02 PM) Alk Phos [39-136 unit/L] 265 unit/L *HI* (11/11/14 6:25 PM) LDH [98-192 unit/L] 0.6 mg/dL (11/11/14 2:02 PM) Bili Total [0.2-1.3 mg/dL] 265 mOsm/kg *LOW* (11/12/14 1:48 AM) 265 mOsm/kg *LOW* (11/11/14 6:25 PM) Osmolality [280-300 mOsm/kg] 3 ng/dL 4 *NA* (11/11/14 6:25 PM) Aldosterone 0.15 ng/mL *HI* (11/11/14 6:25 PM) Procalcitonin Lvl [0.00-0.10 ng/mL] 1Result Comment: The eGFR is calculated using [...] be mul tiplied by the estimated BMI. 2Result Comment: The eGFR is calculated using the [...] be mul tiplied by the estimated BMI. 3Result Comment: The eGFR is calculated using the [...] be mul tiplied by the estimated BMI. 4Result Comment: Adult Reference Ranges for Aldosterone, LC/MS/MS: Upright 8:00-10:00 am < or=28 ng/dL Upright 4:00-6:00 pm < or=21 ng/dL Supine 8:00-10:00 am 3-16 ng/dL Test Performed at: [facility] [address] [place] [address] Charlette Campbell MD, PhD CARDIAC ENZYMES 1 2 3 Most recent to oldest [Reference Range]: <0.02 ng/mL (11/11/14 2:02 PM) Troponin-I [0.00-0.40 ng/mL] THYROID PANEL 1 2 3 Most recent to oldest [Reference Range]: 3.010 uIU/mL (11/11/14 6:25 PM) TSH [0.360-3.740 uIU/mL] PARATHYROID PROFILE 1 2 3 Most recent to oldest [Reference Range]: 1.19 mMol/L (11/12/14 12:50 AM) 1.08 mMol/L (11/11/14 6:25 PM) Ca Ion WB [1.05-1.25 mMol/L] 1.16 mMol/L (11/12/14 12:50 AM) 1.08 mMol/L (11/11/14 6:25 PM) Ca Norm WB [1.05-1.25 mMol/L] TOXICOLOGY 1 2 3 Most recent to oldest [Reference Range]: <0.10 ug/ml (11/11/14 3:14 PM) Phenytoin Free [1.00-2.00 ug/ml] 54 ug/ml (11/12/14 1:48 AM) Valproic Acid Lvl [50-100 ug/ml] ENDOCRINOLOGY 1 2 3 Most recent to oldest [Reference Range]: 14.2 ug/dl *NA* (11/11/14 6:25 PM) Cortisol URINE CHEM 1 2 3 Most recent to oldest [Reference Range]: 124 mEq/L *NA* (11/12/14 1:48 AM) U Sodium 679 mOsm/kg (11/12/14 1:48 AM) U Osmolality [300-800 mOsm/kg] HEMATOLOGY 1 2 3 Most recent to oldest [Reference Range]: 9.4 K/CMM (11/13/14 1:07 AM) 9.2 K/CMM (11/12/14 12:50 AM) 10.5 K/CMM *HI* (11/11/14 2:02 PM) WBC [3.7-10.4 K/CMM] 4.03 M/CMM *LOW* (11/13/14 1:07 AM) 3.96 M/CMM *LOW* (11/12/14 12:50 AM) 4.18 M/CMM *LOW* (11/11/14 2:02 PM) RBC [4.70-6.10 M/CMM] 13.3 g/dL *LOW* (11/13/14 1:07 AM) 13.2 g/dL *LOW* (11/12/14 12:50 AM) 13.5 g/dL *LOW* (11/11/14 2:02 PM) Hgb [14.0-18.0 g/dL] 39.2 % *LOW* (11/13/14 1:07 AM) 37.5 % *LOW* (11/12/14 12:50 AM) 39.8 % *LOW* (11/11/14 2:02 PM) Hct [42.0-54.0 %] 97.2 fL *HI* (11/13/14 1:07 AM) 94.6 fL *HI* (11/12/14 12:50 AM) 95.1 fL *HI* (11/11/14 2:02 PM) MCV [80.0-94.0 fL] 33.0 pg *HI* (11/13/14 1:07 AM) 33.4 pg *HI* (11/12/14 12:50 AM) 32.2 pg *HI* (11/11/14 2:02 PM) MCH [27.0-31.0 pg] 34.0 g/dL (11/13/14 1:07 AM) 35.4 g/dL (11/12/14 12:50 AM) 33.9 g/dL (11/11/14 2:02 PM) MCHC [32.0-36.0 g/dL] 12.9 % (11/13/14 1:07 AM) 13.1 % (11/12/14 12:50 AM) 13.0 % (11/11/14 2:02 PM) RDW [11.5-14.5 %] 342 K/CMM (11/13/14 1:07 AM) 330 K/CMM (11/12/14 12:50 AM) 358 K/CMM (11/11/14 2:02 PM) Platelet [133-450 K/CMM] 6.9 fL *LOW* (11/13/14 1:07 AM) 6.9 fL *LOW* (11/12/14 12:50 AM) 6.8 fL *LOW* (11/11/14 2:02 PM) MPV [7.4-10.4 fL] 67.7 % (11/13/14 1:07 AM) 77.4 % *HI* (11/12/14 12:50 AM) 76.6 % *HI* (11/11/14 2:02 PM) Segs [45.0-75.0 %] 17.2 % *LOW* (11/13/14 1:07 AM) 11.1 % *LOW* (11/12/14 12:50 AM) 12.2 % *LOW* (11/11/14 2:02 PM) Lymphocytes [20.0-40.0 %] 13.1 % *HI* (11/13/14 1:07 AM) 10.7 % (11/12/14 12:50 AM) 10.2 % (11/11/14 2:02 PM) Monocytes [2.0-12.0 %] 1.3 % (11/13/14 1:07 AM) 0.4 % (11/12/14 12:50 AM) 0.4 % (11/11/14 2:02 PM) Eosinophils [0.0-4.0 %] 0.7 % (11/13/14 1:07 AM) 0.4 % (11/12/14 12:50 AM) 0.6 % (11/11/14 2:02 PM) Basophils [0.0-1.0 %] 6.4 K/CMM (11/13/14 1:07 AM) 7.1 K/CMM (11/12/14 12:50 AM) 8.0 K/CMM (11/11/14 2:02 PM) Segs-Bands # [1.5-8.1 K/CMM] 1.6 K/CMM (11/13/14 1:07 AM) 1.0 K/CMM (11/12/14 12:50 AM) 1.3 K/CMM (11/11/14 2:02 PM) Lymphocytes # [1.0-5.5 K/CMM] 1.2 K/CMM *HI* (11/13/14 1:07 AM) 1.0 K/CMM *HI* (11/12/14 12:50 AM) 1.1 K/CMM *HI* (11/11/14 2:02 PM) Monocytes # [0.0-0.8 K/CMM] 0.1 K/CMM (11/13/14 1:07 AM) Eosinophils # [0.0-0.5 K/CMM] 0.1 K/CMM (11/13/14 1:07 AM) 0.1 K/CMM (11/11/14 2:02 PM) Basophils # [0.0-0.2 K/CMM] Normal (11/11/14 2:02 PM) RBC Morph Normal (11/11/14 2:02 PM) Plt Morph 13.9 seconds (11/12/14 1:48 AM) 13.1 seconds (11/11/14 2:02 PM) PT [12.0-14.7 seconds] 1.07 (11/12/14 1:48 AM) 0.99 (11/11/14 2:02 PM) INR [0.85-1.17] 36.0 seconds *HI* (11/12/14 12:50 AM) 34.4 seconds (11/11/14 2:02 PM) PTT [22.9-35.8 seconds] BACTERIAL - SEROLOGY 1 2 3 Most recent to oldest [Reference Range]: Negative (11/12/14 12:50 AM) MRSA by PCR Immunizations Vaccine Date Refusal Reason pneumococcal 23-valent vaccine 11/14/14 Procedures Procedure Date Related Diagnosis Body Site Gallbladder stone removal 07/18/13 Cholecystectomy Social History Social History Type Response Smoking Status Never smoker; Exposure to Tobacco Smoke None; Cigarette Smoking Last 365 Days No; Reg Smoking Cessation Counseling No Assessment and Plan Extracted from: Title: Liaison Note Author: Xiao Bunn Date: 11/15/14 11/15/2014 Patient and sister notified that no documentation of cell phone arrived with patient from OSH. All items that came with patient are in Security and can be released at time of discharge. Patient has previous TBI and per sister sometimes gets confused. Attempted to call patient's phone - turned off. Also ED search yielded no item found. Xiao Bunn Patient Liaison [id number]
--- OUTSIDE RECORDS SUMMARY | 2018-05-03 10:32 | XMS REPORT ---
Author Author [facility] Address Unknown Phone Unavailable Care Team Providers Care Teaching Manager Name Role Phone Unavailable Unavailable Payers Payer Name Policy Type Policy Number Effective Date Expiration Date Problems This patient has no known problems. Allergies, Adverse Reactions, Alerts Allergy Name Allergy Type Status Severity Reaction(s) Onset Date Inactive Date Treating Clinician Comments lisinopril DA Active U 2018-04-27 00:00:00 hydrocodone DA Active ND 2018-04-27 00:00:00 simvastatin DA Active U 2018-04-27 00:00:00 lisinopril DA Active U 2018-04-13 00:00:00 hydrocodone DA Active ND 2018-04-13 00:00:00 simvastatin DA Active U 2018-04-13 00:00:00 lisinopril DA Active U 2018-04-07 00:00:00 hydrocodone DA Active ND 2018-04-07 00:00:00 simvastatin DA Active U 2018-04-07 00:00:00 lisinopril DA Active U 2018-01-05 00:00:00 hydrocodone DA Active ND 2018-01-05 00:00:00 simvastatin DA Active U 2018-01-05 00:00:00 lisinopril DA Active U 2017-11-28 00:00:00 hydrocodone DA Active ND 2017-11-28 00:00:00 simvastatin DA Active U 2017-11-28 00:00:00 Medications This patient has no known medications. Encounters Start Date/Time End Date/Time Encounter Type Admission Type Attending [facility] Care Department Encounter ID 2016-11-05 18:48:28 2016-11-05 18:48:28 Emergency [facility] [id number] 2016-10-18 00:00:00 2016-10-18 00:00:00 Outpatient [facility] [id number] 2016-10-13 20:57:10 2016-10-13 20:57:10 Emergency [facility] [id number] 2016-10-13 13:26:57 2016-10-13 13:26:57 Emergency [facility] [id number]
--- OUTSIDE RECORDS SUMMARY | 2018-05-03 10:32 | XMS REPORT | Summary of Care ---
Author Organization Unknown Address Unknown Phone Unavailable Encounter [facility](KARLA) [id number] Date(s): 06/24/14 - 06/24/14 [facility] [address] [place] [address]- [phone] Discharge Diagnosis: Gastritis Discharge Diagnosis: Nausea & vomiting Discharge Disposition: Home Physician Attending: Bola Irby MD Vital Signs 1 2 3 Most recent to oldest [Reference Range]: 162.56 cm (06/24/14 5:53 PM) Height 98 DegF (06/24/14 10:43 PM) 97.9 DegF (06/24/14 7:59 PM) 99.1 DegF (06/24/14 5:53 PM) Temperature Oral [96.4-99.1 DegF] 126/80 mmHg (06/24/14 10:43 PM) 150/96 mmHg *HI* (06/24/14 7:59 PM) 142/93 mmHg *HI* (06/24/14 5:53 PM) Blood Pressure [90-140/60-90 mmHg] 16 BRMIN (06/24/14 10:43 PM) 20 BRMIN (06/24/14 7:59 PM) 18 BRMIN (06/24/14 5:53 PM) Respiratory Rate [14-20 BRMIN] 89 bpm (06/24/14 10:43 PM) 102 bpm *HI* (06/24/14 7:59 PM) 117 bpm *HI* (06/24/14 5:53 PM) Peripheral Pulse Rate [60-100 bpm] 70.455 kg (06/24/14 5:53 PM) Weight 26.66 m2 (06/24/14 5:53 PM) Body Mass Index Problem List Condition Effective Dates Status Health Status Informant Diabetes Resolved mellitus(Confirmed) Seizure(Confirmed) Resolved Allergies, Adverse Reactions, Alerts Substance Reaction Severity Status HYDROcodone-pseudoephedri Active ne simvastatin Active Medications Bentyl 20 mg oral tablet 20 mg=1 tab, PO, QID, # 28 tab, 0 Refill(s) Start Date: 06/24/14 Stop Date: 07/01/14 Status: Ordered metoclopramide 10 mg, Route: IVP, Drug form: INJ, ONCE, Dosing Weight 70.455, kg, Priority: STA T, Start date: 06/24/14 19:28:00, Stop date: 06/24/14 19:28:00 Start Date: 06/24/14 Stop Date: 06/24/14 Status: Completed NexIUM 40 mg oral delayed release capsule 40 mg=1 cap, PO, Daily, # 30 cap, 0 Refill(s) Start Date: 06/24/14 Status: Ordered ondansetron 4 mg, Route: IVP, ONCE, Dosing Weight 70.455, kg, Priority: STAT, Start date: 19:28:00, Stop date: 06/24/14 19:28:00 Start Date: 06/24/14 Stop Date: 06/24/14 Status: Completed Saline Flush 0.9% 10 mL, Route: IVP, Drug Form: INJ, Dosing Weight 70.455, kg, PRN, PRN Line Flush , Start date: 06/24/14 19:28:00, Duration: 30 day, Stop date: 07/24/14 19:27:00 Notes: Same as: BD Posiflush Sterile Start Date: 06/24/14 Stop Date: 06/25/14 Status: Discontinued Sodium Chloride 0.9% (Bolus) IV 1,000 mL, Infuse Over: 1 hr, Route: IV, ONCE, Priority: STAT, Dosing Weight 70.4 55 kg, Start date: 06/24/14 19:28:00, Duration: 1 doses or times, Stop date: 12/31 19:28:00 Start Date: 06/24/14 Stop Date: 06/24/14 Status: Completed Zofran 4 mg, Route: IVP, Drug form: INJ, ONCE, Dosing Weight 70.455, kg, Priority: STAT , Start date: 06/24/14 20:42:00, Stop date: 06/24/14 20:42:00 Start Date: 06/24/14 Stop Date: 06/24/14 Status: Completed Zofran ODT 4 mg oral tablet, disintegrating 4 mg=1 tab, PO, TID, as needed for nausea/vomiting, # 12 tab, 0 Refill(s) Start Date: 06/24/14 Status: Ordered Results ELECTROLYTES Most recent to 1 oldest [Reference Range]: Sodium Lvl [135-145 130 mEq/L mEq/L] *LOW* (06/24/14 7:46 PM) Potassium Lvl 4.0 mEq/L [3.5-5.1 mEq/L] (06/24/14 7:46 PM) Chloride Lvl [95-109 92 mEq/L mEq/L] *LOW* (06/24/14 7:46 PM) CO2 [24-32 mEq/L] 27 mEq/L (06/24/14 7:46 PM) AGAP [10.0-20.0 15.0 mEq/L mEq/L] (06/24/14 7:46 PM) CHEM PANEL Most recent to 1 oldest [Reference Range]: Creatinine Lvl 0.8 mg/dL [0.5-1.4 mg/dL] (06/24/14 7:46 PM) eGFR 118 mL/min/1.73m2 1 *NA* (06/24/14 7:46 PM) BUN [7-22 mg/dL] 11 mg/dL (06/24/14 7:46 PM) B/C Ratio [6-25] 14 (06/24/14 7:46 PM) Glucose Lvl [70-99 80 mg/dL 2 mg/dL] (06/24/14 7:46 PM) Total Protein 8.6 g/dL [6.4-8.4 g/dL] *HI* (06/24/14 7:46 PM) Albumin Lvl [3.5-5.0 4.0 g/dL g/dL] (06/24/14 7:46 PM) Globulin [2.0-4.0 4.6 g/dL g/dL] *HI* (06/24/14 7:46 PM) A/G Ratio [0.7-1.6] 0.9 (06/24/14 7:46 PM) Calcium Lvl 9.5 mg/dL [8.5-10.5 mg/dL] (06/24/14 7:46 PM) ALT [0-65 unit/L] 22 unit/L (06/24/14 7:46 PM) AST [0-37 unit/L] 15 unit/L (06/24/14 7:46 PM) Alk Phos [39-136 80 unit/L unit/L] (06/24/14 7:46 PM) Bili Total [0.2-1.3 0.3 mg/dL mg/dL] (06/24/14 7:46 PM) Amylase Lvl [25-115 34 unit/L unit/L] (06/24/14 7:46 PM) Lipase Lvl [73-393 127 unit/L unit/L] (06/24/14 7:46 PM) 1Result Comment: The eGFR is calculated [...] values reflect the clinical guidelines of the [place] [employer]. URINE AND STOOL Most recent to 1 oldest [Reference Range]: UA Turbidity [Clear] Clear (06/24/14 7:50 PM) UA Color [Yellow] Yellow *NA* (06/24/14 7:50 PM) UA pH [5.0-8.0] 6.0 (06/24/14 7:50 PM) UA Spec Grav 1.026 [<=1.030] (06/24/14 7:50 PM) UA Glucose [Negative Negative mg/dL mg/dL] *NA* (06/24/14 7:50 PM) UA Blood [Negative] Negative (06/24/14 7:50 PM) UA Ketones [Negative Trace mg/dL mg/dL] *ABN* (06/24/14 7:50 PM) UA Protein [Negative Negative mg/dL mg/dL] (06/24/14 7:50 PM) UA Urobilinogen <=1.0 mg/dL [0.1-1.0 mg/dL] *NA* (06/24/14 7:50 PM) UA Bili [Negative] Negative *NA* (06/24/14 7:50 PM) UA Leuk Est Negative [Negative] (06/24/14 7:50 PM) UA Nitrite Negative [Negative] (06/24/14 7:50 PM) UA WBC [0-5 /HPF] 1 /HPF (06/24/14 7:50 PM) UA RBC [0-2 /HPF] 5 /HPF *HI* (06/24/14 7:50 PM) UA Sq Epi [Few /LPF] Occasional /LPF *NA* (06/24/14 7:50 PM) UA Mucus [None Seen Few /LPF /LPF] *NA* (06/24/14 7:50 PM) UA [place] Yeast [None Few /HPF Seen /HPF] *ABN* (06/24/14 7:50 PM) IMMUNOLOGY Most recent to 1 oldest [Reference Range]: CDC HIV 4th GEN Negative [Negative] (06/24/14 7:46 PM) HEMATOLOGY Most recent to 1 oldest [Reference Range]: WBC [3.7-10.4 K/CMM] 10.8 K/CMM *HI* (06/24/14 7:46 PM) RBC [4.70-6.10 4.33 M/CMM M/CMM] *LOW* (06/24/14 7:46 PM) Hgb [14.0-18.0 g/dL] 14.2 g/dL (06/24/14 7:46 PM) Hct [42.0-54.0 %] 40.1 % *LOW* (06/24/14 7:46 PM) MCV [80.0-94.0 fL] 92.8 fL (06/24/14 7:46 PM) MCH [27.0-31.0 pg] 32.9 pg *HI* (06/24/14 7:46 PM) MCHC [32.0-36.0 35.4 g/dL g/dL] (06/24/14 7:46 PM) RDW [11.5-14.5 %] 13.1 % (06/24/14 7:46 PM) Platelet [133-450 377 K/CMM K/CMM] (06/24/14 7:46 PM) MPV [7.4-10.4 fL] 6.7 fL *LOW* (06/24/14 7:46 PM) Segs [45.0-75.0 %] 63.4 % (06/24/14 7:46 PM) Lymphocytes 25.1 % [20.0-40.0 %] (06/24/14 7:46 PM) Monocytes [2.0-12.0 9.4 % %] (06/24/14 7:46 PM) Eosinophils [0.0-4.0 1.4 % %] (06/24/14 7:46 PM) Basophils [0.0-1.0 0.7 % %] (06/24/14 7:46 PM) Segs-Bands # 6.9 K/CMM [1.5-8.1 K/CMM] (06/24/14 7:46 PM) Lymphocytes # 2.7 K/CMM [1.0-5.5 K/CMM] (06/24/14 7:46 PM) Monocytes # [0.0-0.8 1.0 K/CMM K/CMM] *HI* (06/24/14 7:46 PM) Eosinophils # 0.2 K/CMM [0.0-0.5 K/CMM] (06/24/14 7:46 PM) Basophils # [0.0-0.2 0.1 K/CMM K/CMM] (06/24/14 7:46 PM) Immunizations No data available for this section Procedures No data available for this section Social History Social History Type Response Smoking Status Never smoker; Exposure to Tobacco Smoke None; Cigarette Smoking Last 365 Days No; Reg Smoking Cessation Counseling No Assessment and Plan No data available for this section
[2018-05-03] MEDS ORDERED: SODIUM CHLORIDE 0.9% 1000ML 1,000 ML IV STA (10:36)
[2018-05-03] MEDS ORDERED: ONDANSETRON HCL INJ 2 MG/ML VIAL IV STA (10:36)
[2018-05-03 10:37] VITALS: BP 114/68
[2018-05-03] MEDS ORDERED: MECLIZINE HCL 12.5 MG TAB PO ONE (10:45)
--- NOTE | 2018-05-03 11:02 | NUR ---
Pt needs to go to the RR. Pt does not want to use a urinal and states he can walk to the RR. Pt walks to without difficulty, steady gait, and no complaints of dizziness.
--- NOTE | 2018-05-03 11:18 | NUR ---
Fingerstick BGL= 304
--- NOTE | 2018-05-03 11:18 | NUR ---
Labs sent. Awaiting results.
[2018-05-03 11:28] LABS: BASOPHILS % 0.5 % (0.0-1.0); EOSINOPHILS # (AUTO) 0.1 (0.0-0.4); EOSINOPHILS % 1.9 % (0.0-6.0); HEMATOCRIT 37.1 % (38.2-49.6); HEMOGLOBIN 12.8 g/dL (14.0-18.0); LYMPHOCYTES # (AUTO) 1.8 (1.0-3.2); LYMPHOCYTES % 28.7 % (18.0-39.1); MEAN CORPUSCULAR HEMOGLOBIN 31.1 pg (28-32); MEAN CORPUSCULAR HGB CONC 34.5 g/dL (31-35); MONOCYTES # (AUTO) 0.6 (0.2-0.8); MONOCYTES % 8.8 % (4.4-11.3); NEUTROPHILS # (AUTO) 3.8 (2.1-6.9); NEUTROPHILS % 59.3 % (38.7-80.0); PLATELET COUNT 314 x10e3/uL (140-360); RED BLOOD COUNT 4.12 x10e6/uL (4.3-5.7); RED CELL DISTRIBUTION WIDTH 14.1 % (11.7-14.4)
[2018-05-03 11:42] LABS: AMPHETAMINES SCREEN,URINE NEGATIVE (NEGATIVE); BENZODIAZEPINES SCREEN,URINE NEGATIVE (NEGATIVE); PHENCYCLIDINE SCREEN,URINE NEGATIVE (NEGATIVE)
[2018-05-03 11:44] LABS: BILIRUBIN,URINE NEGATIVE (NEGATIVE); CLARITY,URINE SL CLOUDY (CLEAR); COLOR,URINE YELLOW (YELLOW); KETONES,URINE TRACE (NEGATIVE); LEUKOCYTE ESTERASE ,URINE NEGATIVE (NEGATIVE); NITRITE,URINE NEGATIVE (NEGATIVE); PROTEIN,URINE DIPSTICK NEGATIVE (NEGATIVE); URINE UROBILINOGEN 0.2 mg/dL (0.2 - 1)
[2018-05-03 11:50] LABS: ALANINE AMINOTRANSFERASE 39 IU/L (0-55); ALBUMIN 3.4 g/dL (3.5-5.0); ALKALINE PHOSPHATASE 47 IU/L (40-150); ANION GAP 15.1 mmol/L (8-16); BLOOD UREA NITROGEN 15 mg/dL (7-26); BUN/CREATININE RATIO 16 (6-25); CALCIUM 9.5 mg/dL (8.4-10.2); CARBON DIOXIDE 24 mmol/L (22-29); CHLORIDE 99 mmol/L (98-107); CREATINE KINASE 143 IU/L (30-200); CREATININE, SERUM 0.91 mg/dL (0.72-1.25); EST GLOMERULAR FILTRATION RATE > 60 ML/MIN (60-); GLUCOSE 291 mg/dL (74-118); LIPASE 30 U/L (8-78); POTASSIUM 4.1 mmol/L (3.5-5.1); SODIUM 134 mmol/L (136-145)
[2018-05-03 11:53] LABS: EPITHELIAL CELLS,URINE FEW /LPF
--- NOTE | 2018-05-03 12:08 | Diagnostic Imaging Report ---
EXAMINATION: CHEST SINGLE (PORTABLE) INDICATION: Near syncope. Dizziness. Weakness. COMPARISON: None FINDINGS: TUBES and LINES: None. LUNGS: Lungs are well inflated. Lungs are clear. There is no evidence of pneumonia or pulmonary edema. PLEURA: No pleural effusion or pneumothorax. HEART AND MEDIASTINUM: The cardiomediastinal silhouette is unremarkable. BONES AND SOFT TISSUES: No acute osseous lesion. Soft tissues are unremarkable. UPPER ABDOMEN: No free air under the diaphragm. IMPRESSION: No acute thoracic abnormality. Signed by: Dr. Ascencion Bermudez M.D. on 05/03/2018 12:05 PM
[2018-05-03 12:10] LABS: THYROID STIMULATING HORMONE 0.471 uIU/mL (0.350-4.940); VALPROIC ACID 92 ug/mL (50-100)
--- NOTE | 2018-05-03 13:29 | NUR ---
Pt ambulatory to the RR with a steady gait. States dizziness is reduced.
--- NOTE | 2018-05-03 13:45 | NUR ---
Pt ate 100% of food tray. No vomiting or complaint of nausea. Pt is walking around inside his room and in and out of the hallway. Pt is redirected several times back into his room. Pt continues to come into the hallway and stand at the nurses station. Pt redirected multiple times.
[2018-05-03 15:30] LABS: CREATINE KINASE MB 1.3 ng/mL (0-5.0)
--- NOTE | 2018-05-03 15:33 | Diagnostic Imaging Report ---
Exam: Brain MRI without IV contrast History: Near syncope, dizziness Comparison studies: Head CT 11/11/2014. Brain MRI of 11/26/[address] of 11/24/2015 are unavailable on the PACS for comparison at the time of dictation. Technique: Axial DWI, sagittal and axial T2 FLAIR, axial T1 FLAIR, axial T2, axial T2*GRE. Intravenous contrast: None Findings: Scalp and bone marrow: Surgical changes of prior right frontal and prior right parietal anita holes presumably for prior subdural hematoma evacuation. Brain sulci: Appropriate for age. Ventricles: Normal in size. No hydrocephalus. Extra axial spaces: No mass, no fluid collection. Parenchyma: A couple of T2 FLAIR hyperintense in the bilateral fronto-insular subcortical white matter and T2 FLAIR hyperintense focus in the anterior limb of the left internal capsule are nonspecific Small focal hemosiderin deposition in the right frontal periventricular white matter along the lateral margin of the splenium of the corpus callosum as sequela of nonspecific insult. Increased T2 signal and volume loss in the left hippocampus which may reflect mesial temporal sclerosis. These findings were described on the prior MRI of 11/26/2015. The right hippocampus is normal in size and signal intensity. Small chronic microhemorrhage in the posterior right middle temporal lobe. Unchanged increased calcium deposition within the bilateral globi pallidi which may be physiologic. Moreover, similar findings can be seen with metabolic abnormalities, especially abnormalities of calcium metabolism. A 3 mm T2 hyperintensity in the right medial cerebellum without surrounding T2 FLAIR hyperintensity may reflect incidental prominent perivascular space. Suprasellar region: No abnormalities. Craniocervical junction: Patent foramen magnum. No Chiari malformation. Vessels: Normal flow-voids in the arteries and sinuses. IMPRESSION: No acute intracranial abnormalities. Chronic findings: 1. Left mesial temporal sclerosis, unchanged. 2. Chronic right frontal and right posterior temporal small hemorrhagic foci. 3. Unchanged nonspecific globi pallidi calcifications as described. 4. Small foci of signal abnormality in the bilateral frontal-insular white matter and anterior limb of the left internal capsule which are nonspecific but may reflect mild chronic microvascular ischemic changes or other nonspecific foci of gliosis. Signed by: Dr. Td Rebollar M.D. on 05/03/2018 3:30 PM
== END 2018-05-03 15:50 | disposition home or self-care (01) ==
LOC: ER 10:25
DX: R42 Dizziness and giddiness (principal); R53.1 Weakness; R11.0 Nausea
CPT/HCPCS: 36415; 70551; 71045; 80053; 80164; 80307; 81001; 82550; 82553; 82948; 83690; 84443; 84484; 85025; 87086; 87400; 93005; 99284; J2405; J7030

== ENCOUNTER 2019-09-22 14:38 | Emergency (ER) | payer MEDICARE, OTHER ==
[~2019-09-22] VITALS: Ht 162.6 cm; Wt 74.4 kg
--- OUTSIDE RECORDS SUMMARY | 2019-09-22 14:41 | XMS REPORT | Clinical Summary ---
Author Author [facility] Organization [facility] Address Unknown Phone Unavailable Care Team Providers Care Photo Booth Operator Name Role Phone PCP Unavailable Allergies Comments Active Allergy Reactions Severity Noted Date No Known Drug Allergies 01/16/2008 Medications End Date Status Medication Sig Dispensed Refills Start Date Active NAFTIN 1 % TOPICAL apply to the one tube 4 CREAMIndications: affected and 9 Dermatophytosis of foot surrounding areas of skin by topical route twice daily Active NAPROXEN 500 MG take 1 tablet 60 2 11/06/19 0 TABIndications: Plantar (500 mg) by 9 fasciitis oral route 2 times per day with food Active divalproex (DEPAKOTE) 500 Take 500 mg 0 mg delayed release tablet by mouth 3 times daily. Active insulin lispro, Human, Inject under 0 (HUMALOG) 100 unit/mL pen the skin once. 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 from [facility], no supporting documentation Suicidal ideation Insulin overdose 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, without psychotic features Immunizations Name Administration Dates Next Due Td Tetanus, diphtheria 10/09/2008 10/09/2018 Toxoids Vaccine Family History Medical History Relation Name Comments Diabetes Father Relation Name Status Comments Brother Alive Father Alive Maternal Grandfather Maternal Grandmother Mother Alive Paternal Grandfather Paternal Grandmother Sister Alive x2 Social History Date Tobacco Use Types Packs/Day Years Used Never Smoker Drinks/Week oz/Week Comments Alcohol Use No Sex Assigned at Date Recorded Not on file Industry Job Start Date Occupation Not on file Not on file Not on file Travel End Travel History Travel Start No recent travel history available. Last Filed Vital Signs Not on file Plan of Treatment Health Maintenance Due Date Last Done Comments IMM Influenza Seasonal 01/17/2020Jan to June (>/= 19 yrs) Results Not on fileafter 09/21/2018 Insurance Type Payer Benefit Subscriber ID Effective Phone Address Plan / Dates Group [facility] x[facility] 2015-P [phone] [id number] [place] [address] [facility] xxxxxxxxx 2015-P [phone] [address] [employer] [id number] [place] [address]
--- OUTSIDE RECORDS SUMMARY | 2019-09-22 14:42 | XMS REPORT | Summary of Care ---
Author Author [facility] Organization [facility] Address Unknown Phone Unavailable Encounter [facility](FIN) [id number] Date(s): 09/16/19 - 09/16/19 [facility] [address] [place] [address]- [phone] Encounter Diagnosis Dizziness (Discharge Diagnosis) - 09/16/19 Hyperglycemia due to diabetes mellitus (Discharge Diagnosis) - 09/16/19 Discharge Disposition: Home or Self Care Attending Physician: Louie Cuevas MD Vital Signs 1 2 3 Most recent to oldest [Reference Range]: 162.56 cm (09/16/19 11:17 AM) Height 98.0 DegF (09/16/19 1:33 PM) 98.8 DegF (09/16/19 11:17 AM) Temperature Oral [96.4-99.1 DegF] 135/77 mmHg (09/16/19 1:33 PM) 142/76 mmHg *HI* (09/16/19 12:56 PM) 125/86 mmHg (09/16/19 11:17 AM) Blood Pressure [90-140/60-90 mmHg] 20 BRMIN (09/16/19 1:33 PM) 14 BRMIN (09/16/19 12:56 PM) 16 BRMIN (09/16/19 11:17 AM) Respiratory Rate [14-20 BRMIN] 95 bpm (09/16/19 11:17 AM) Peripheral Pulse Rate [60-100 bpm] 68.182 kg (09/16/19 11:17 AM) Weight 25.8 m2 (09/16/19 11:17 AM) Body Mass Index Problem List Condition Effective Dates Status Health Status Informan t Depression(Confirmed Active ) Diabetes Active mellitus(Confirmed) Hypothyroidism(Confi Active rmed) Leukemia(Confirmed) Resolved Seizure(Confirmed) Active DM2 (diabetes Active mellitus, type 2)(Confirmed) Allergies, Adverse Reactions, Alerts Substance Reaction Severity Status simvastatin Active Zocor Active HYDROcodone-pseudoephedri Active ne Medications Sodium Chloride 0.9% (Bolus) IV 1,000 mL, 1000 ml/hr, Infuse Over: 1 hr, Route: IV, 1,000, Drug form: INJ, ONCE, Priority: STAT, Dosing Weight 68.182 kg, Start date: 09/16/19 11:57:00 CDT, Stop date: 09/16/19 11:57:00 CDT, 0 Start Date: 09/16/19 Stop Date: 09/16/19 Status: Completed Results Most recent to 1 oldest [Reference Range]: Neutrophils # 3.4 K/CMM [1.5-8.1 K/CMM] (09/16/19 12:06 PM) Lymphocytes # 2.3 K/CMM [1.0-5.5 K/CMM] (09/16/19 12:06 PM) Monocytes # [0.0-0.8 0.6 K/CMM K/CMM] (09/16/19 12:06 PM) Eosinophils # 0.1 K/CMM [0.0-0.5 K/CMM] (09/16/19 12:06 PM) Basophils # [0.0-0.2 0.1 K/CMM K/CMM] (09/16/19 12:06 PM) eGFR 103 mL/min/1.73m2 1 *NA* (09/16/19 12:06 PM) A/G Ratio [0.7-1.6] 0.8 (09/16/19 12:06 PM) Albumin Lvl [3.5-5.0 3.8 g/dL g/dL] (09/16/19 12:06 PM) Alk Phos [39-136 85 unit/L unit/L] (09/16/19 12:06 PM) ALT [0-65 unit/L] 45 unit/L (09/16/19 12:06 PM) AGAP [10.0-20.0 12.6 mEq/L mEq/L] (09/16/19 12:06 PM) AST [0-37 unit/L] 62 unit/L *HI* (09/16/19 PM) B/C Ratio [6-25] 16 (09/16/19: PM) Basophils [0.0-1.0 0.8 % %] (09/16/19: PM) BUN [7-22 mg/dL] 15 mg/dL (09/16/19 PM) Calcium Lvl 9.9 mg/dL [8.5-10.5 mg/dL] (09/16/19 PM) Total CK [12-191 140 unit/L unit/L] (09/16/19 PM) Chloride Lvl [95-109 98 mEq/L mEq/L] (09/16/19 PM) CO2 [24-32 mEq/L] 30 mEq/L (09/16/19 PM) Creatinine Lvl 0.93 mg/dL [0.50-1.40 mg/dL] (09/16/19 PM) Eosinophils [0.0-4.0 2.0 % %] (09/16/19 PM) Globulin [2.7-4.2 4.7 g/dL g/dL] *HI* (09/16/19 PM) Glucose Lvl [70-99 271 mg/dL mg/dL] *HI* (09/16/19 PM) Hct [42.0-54.0 %] 37.8 % *LOW* (09/16/19) Hgb [14.0-18.0 g/dL] 12.8 g/dL *LOW* (09/16/19 PM) Potassium Lvl 4.6 mEq/L [3.5-5.1 mEq/L] (09/16/19 PM) Lymphocytes 35.3 % [20.0-40.0 %] (09/16/19 PM) MCH [27.0-31.0 pg] 32.1 pg *HI* (09/16/19: PM) MCHC [32.0-36.0 33.9 g/dL g/dL] (09/16/19 PM) MCV [80.0-94.0 fL] 94.6 fL *HI* (09/16/19 12:06 PM) Monocytes [2.0-12.0 8.9 % %] (09/16/19 12:06 PM) MPV [7.4-10.4 fL] 7.4 fL (09/16/19 12:06 PM) Sodium Lvl [135-145 136 mEq/L mEq/L] (09/16/19:06 PM) Platelet [133-450 382 K/CMM K/CMM] (09/16/19:06 PM) Segs [45.0-75.0 %] 53.0 % (09/16/19:06 PM) Total Protein 8.5 g/dL [6.4-8.4 g/dL] *HI* (09/16/19:06 PM) RBC [4.70-6.10 3.99 M/CMM M/CMM] *LOW* (09/16/19:06 PM) RDW [11.5-14.5 %] 13.7 % (09/16/19 12:06 PM) Bili Total [0.2-1.3 0.2 mg/dL mg/dL] (09/16/19 12:06 PM) Troponin-I <0.02 ng/mL [0.00-0.40 ng/mL] (09/16/19 12:06 PM) WBC [3.7-10.4 K/CMM] 6.5 K/CMM (09/16/19 12:06 PM) 1Result Comment: The eGFR is calculated [...] be mul tiplied by the estimated BMI. Immunizations Given and Recorded Vaccine Date Status Refusal Reason pneumococcal 23-valent vaccine 11/14/14 Given Procedures Procedure Date Related Diagnosis Body Site Status Gallbladder stone removal 07/18/13 Completed Cholecystectomy Completed Social History Social History Type Response Smoking Status Never smoker; Exposure to T obacco Smoke None; Cigarette Smoking Last 365 Days No; Reg Smoking Cessation Counseli ng No entered on: 09/16/19 Assessment and Plan No data available for this section
--- OUTSIDE RECORDS SUMMARY | 2019-09-22 14:42 | XMS REPORT | Summary of Care ---
Author Author [facility] Organization [facility] Address Unknown Phone Unavailable Encounter HQ [facility]se[facility](FIN) [phone] Date(s): 05/02/18 - 05/02/18 [facility] [address] [place] [address]- Encounter Diagnosis Syncope (Discharge Diagnosis) - 05/02/18 Syncope and collapse (Final) - 05/08/18 Headache (Final) - Low back pain (Final) - Unspecified fall, initial encounter (Final) - Type 2 diabetes mellitus without complications (Final) - Epilepsy, unspecified, not intractable, without status epilepticus (Final) - Other alf (current) drug therapy (Final) - 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) - Discharge Disposition: Home or Self Care Attending Physician: Karlo Hyman DO Vital Signs 1 2 3 Most recent to oldest [Reference Range]: 162.56 cm (05/02/18 10:22 AM) Height 98.5 DegF (05/02/18 10:22 AM) Temperature Oral [96.4-99.1 DegF] 122/82 mmHg (05/02/18 1:59 PM) 123/85 mmHg (05/02/18 11:07 AM) 133/86 mmHg (05/02/18 10:22 AM) Blood Pressure [90-140/60-90 mmHg] 15 BRMIN (05/02/18 1:59 PM) 11 BRMIN *LOW* (05/02/18 11:07 AM) 20 BRMIN (05/02/18 10:22 AM) Respiratory Rate [14-20 BRMIN] 100 bpm (05/02/18 10:22 AM) Peripheral Pulse Rate [60-100 bpm] 77.273 kg (05/02/18 10:22 AM) Weight 29.24 m2 (05/02/18 10:22 AM) Body Mass Index Problem List Condition Effective Dates Status Health Status Informan t Diabetes Active mellitus(Confirmed) Leukemia(Confirmed) Resolved Seizure(Confirmed) Active Allergies, Adverse Reactions, Alerts Substance Reaction Severity Status simvastatin Active HYDROcodone-pseudoephedri Active ne Medications Saline Flush 0.9% 10 mL, Route: IVP, Drug Form: INJ, Dosing Weight 72.727, kg, PRN, PRN Line Flush , Start date: 05/02/18 10:15:00 [employer], Duration: 30 day, Stop date: 06/01/18 10:14 :00 [employer] Notes: Same as: BD Posiflush Sterile Start Date: 05/02/18 Stop Date: 05/02/18 Status: Discontinued Sodium Chloride 0.9% (Bolus) IV 1,000 mL, 1000 ml/hr, Infuse Over: 1 hr, Route: IV, 1,000, Drug form: INJ, ONCE, Priority: STAT, Dosing Weight 72.727 kg, Start date: 05/02/18 10:15:00 [employer], Stop date: 05/02/18 10:15:00 [employer] Start Date: 05/02/18 Stop Date: 05/02/18 Status: Completed Tylenol 1,000 mg, 2 tab, Route: PO, Drug form: TAB, ONCE, Dosing Weight 72.727, kg, Prio rity: STAT, Start date: 05/02/18 10:22:00 [employer], Stop date: 05/02/18 10:22:00 [employer] Notes: Max acetaminophen 4000 mg/day (4 gm/day). (Same as: Tylenol Extra Streng th) Start Date: 05/02/18 Stop Date: 05/02/18 Status: Completed Results Most recent to 1 oldest [Reference Range]: Neutrophils # 5.0 K/CMM [1.5-8.1 K/CMM] (05/02/18 11:33 AM) Lymphocytes # 2.0 K/CMM [1.0-5.5 K/CMM] (05/02/18 11:33 AM) Monocytes # [0.0-0.8 0.7 K/CMM K/CMM] (05/02/18 11:33 AM) Eosinophils # 0.1 K/CMM [0.0-0.5 K/CMM] (05/02/18 11:33 AM) Basophils # [0.0-0.2 0.2 K/CMM K/CMM] (05/02/18 11:33 AM) BNP [<=100 pg/mL] 20 pg/mL (05/02/18 10:48 AM) eGFR 102 mL/min/1.73m2 1 *NA* (05/02/18 10:48 AM) A/G Ratio [0.7-1.6] 0.9 (05/02/18 10:48 AM) Albumin Lvl [3.5-5.0 3.9 g/dL g/dL] (05/02/18 10:48 AM) Alk Phos [39-136 70 unit/L unit/L] (05/02/18 10:48 AM) ALT [0-65 unit/L] 58 unit/L (05/02/18 10:48 AM) AGAP [10.0-20.0 12.6 mEq/L mEq/L] (05/02/18 10:48 AM) AST [0-37 unit/L] 72 unit/L *HI* (05/02/18 10:48 AM) B/C Ratio [6-25] 17 (05/02/18 10:48 AM) Basophils [0.0-1.0 2.3 % %] *HI* (05/02/18 11:33 AM) BUN [7-22 mg/dL] 16 mg/dL (05/02/18 10:48 AM) Calcium Lvl 9.3 mg/dL [8.5-10.5 mg/dL] (05/02/18 10:48 AM) Chloride Lvl [95-109 101 mEq/L mEq/L] (05/02/18 10:48 AM) CO2 [24-32 mEq/L] 29 mEq/L (05/02/18 10:48 AM) Creatinine Lvl 0.95 mg/dL [0.50-1.40 mg/dL] (05/02/18 10:48 AM) Eosinophils [0.0-4.0 1.8 % %] (05/02/18 11:33 AM) Globulin [2.7-4.2 4.4 g/dL g/dL] *HI* (05/02/18 10:48 AM) Glucose Lvl [70-99 256 mg/dL mg/dL] *HI* (05/02/18 10:48 AM) Hct [42.0-54.0 %] 37.4 % *LOW* (05/02/18 11:33 AM) Hgb [14.0-18.0 g/dL] 13.2 g/dL *LOW* (05/02/18: AM) INR [0.85-1.17] 1.05 (05/02/18: AM) Potassium Lvl 4.6 mEq/L [3.5-5.1 mEq/L] (05/02/18 10:48 AM) Lymphocytes 25.3 % [20.0-40.0 %] (05/02/18: AM) MCH [27.0-31.0 pg] 32.0 pg *HI* (05/02/18 11:33 AM) MCHC [32.0-36.0 35.2 g/dL g/dL] (05/02/18:33 AM) MCV [80.0-94.0 fL] 90.8 fL (05/02/18:33 AM) Monocytes [2.0-12.0 8.2 % %] (05/02/18: AM) MPV [7.4-10.4 fL] 7.6 fL (05/02/18 11:33 AM) Sodium Lvl [135-145 138 mEq/L mEq/L] (05/02/18 10:48 AM) Platelet [133-450 388 K/CMM K/CMM] (05/02/18:33 AM) Segs [45.0-75.0 %] 62.4 % (05/02/18 11:33 AM) Total Protein 8.3 g/dL [6.4-8.4 g/dL] (05/02/18 10:48 AM) PT [12.0-14.7 13.5 seconds seconds] (05/02/18 11:33 AM) PTT [22.9-35.8 32.0 seconds seconds] (05/02/18 11:33 AM) RBC [4.70-6.10 4.12 M/CMM M/CMM] *LOW* (05/02/18 11:33 AM) RDW [11.5-14.5 %] 15.2 % *HI* (05/02/18 11:33 AM) Bili Total [0.2-1.3 0.4 mg/dL mg/dL] (05/02/18 10:48 AM) Troponin-I <0.02 ng/mL [0.00-0.40 ng/mL] (05/02/18 10:48 AM) UA Bacteria [None None Seen Seen] (05/02/18 10:47 AM) UA Bili [Negative] Negative *NA* (05/02/18 10:47 AM) UA Blood [Negative] Negative (05/02/18 10:47 AM) UA Color [Yellow] Yellow *NA* (05/02/18 10:47 AM) UA Glucose [Negative >=1000 mg/dL mg/dL] *ABN* (05/02/18 10:47 AM) UA Ketones 15 [Negative] *ABN* (05/02/18 10:47 AM) UA Leuk Est Negative [Negative] (05/02/18 10:47 AM) UA Mucus [None Seen Few /LPF /LPF] (05/02/18 10:47 AM) UA Nitrite Negative [Negative] (05/02/18 10:47 AM) UA pH [5.0-8.0] 5.5 (05/02/18 10:47 AM) UA Protein Negative [Negative] (05/02/18 10:47 AM) UA RBC [0-2] None Seen (05/02/18 10:47 AM) UA Spec Grav 1.020 [<=1.030] (05/02/18 10:47 AM) UA Sq Epi [Few /LPF] Occasional /LPF (05/02/18 10:47 AM) UA Turbidity [Clear] Clear (05/02/18 10:47 AM) UA Urobilinogen 0.2 EU/dL [0.1-1.0 EU/dL] (05/02/18 10:47 AM) UA WBC [0-5 /HPF] 0-2 /HPF (05/02/18 10:47 AM) WBC [3.7-10.4 K/CMM] 8.0 K/CMM (05/02/18 11:33 AM) 1Result Comment: The eGFR is calculated using [...] Smoking Cessation Counseli ng No entered on: 05/02/18 Assessment and Plan No data available for this section
--- OUTSIDE RECORDS SUMMARY | 2019-09-22 14:42 | XMS REPORT | Summary of Care ---
Author Author [facility] ospital Organization [facility] Address Unknown Phone Unavailable Encounter [facility]seas(KARLA) [id number] Date(s): 09/13/19 - 09/14/19 [facility] [address] [place] [address]- [phone] Discharge Disposition: Home or Self Care Attending Physician: Ofe Blackman MD Admitting Physician: Betty Blanco MD Vital Signs 1 2 3 Most recent to oldest [Reference Range]: 167.64 cm (09/14/19 3:30 AM) 167.64 cm (09/13/19 10:08 PM) Height 97.9 DegF (09/14/19 3:59 PM) 98.4 DegF (09/14/19 11:57 AM) 98.1 DegF (09/14/19 7:07 AM) Temperature Oral [96.4-99.1 DegF] 140/87 mmHg (09/14/19 3:59 PM) 146/89 mmHg *HI* (09/14/19 11:57 AM) 128/86 mmHg (09/14/19 7:07 AM) Blood Pressure [90-140/60-90 mmHg] 17 BRMIN (09/14/19 3:59 PM) 17 BRMIN (09/14/19 11:57 AM) 18 BRMIN (09/14/19 7:07 AM) Respiratory Rate [14-20 BRMIN] 110 bpm *HI* (09/14/19 3:59 PM) 102 bpm *HI* (09/14/19 11:57 AM) 95 bpm (09/14/19 7:07 AM) Peripheral Pulse Rate [60-100 bpm] 63.636 kg (09/14/19 3:30 AM) 63.636 kg (09/13/19 10:08 PM) Weight 22.64 m2 (09/14/19 3:30 AM) 22.64 m2 (09/13/19 10:08 PM) Body Mass Index Problem List Condition Effective Dates Status Health Status Informan t Depression(Confirmed Active ) Diabetes Active mellitus(Confirmed) Hypothyroidism(Confi Active rmed) Leukemia(Confirmed) Resolved Seizure(Confirmed) Active DM2 (diabetes Active mellitus, type 2)(Confirmed) Allergies, Adverse Reactions, Alerts Substance Reaction Severity Status simvastatin Active Zocor Active HYDROcodone-pseudoephedri Active ne Medications acetaminophen 650 mg, 2 tab, Route: PO, Drug form: TAB, Q6H, Dosing Weight 63.636, kg, PRN Edna n 1-3/Temp > 100.4 F, Start date: 09/14/19 2:19:00 CDT, Duration: 30 day, Stop date: 10/14/19 2:18:00 CDT, 0 Notes: Do not exceed 4 gm/day. (Same as: Tylenol) Start Date: 09/14/19 Stop Date: 09/15/19 Status: Discontinued ARIPiprazole 5 mg, 1 tab, Route: PO, Drug form: TAB, Bedtime, Dosing Weight 63.636, kg, Start date: 09/14/19 21:00:00 CDT, Duration: 30 day, Stop date: 10/13/19 21:00:00 CDT, 0 Notes: (Same as: Tin) Start Date: 09/14/19 Stop Date: 09/15/19 Status: Discontinued ARIPiprazole 5 mg oral tablet 5 mg = 1 tab, PO, Bedtime, 0 Refill(s) Start Date: 09/14/19 Status: Ordered Dextrose 50% Syringe (D50W) 12.5 gm, 25 mL, Route: IVP, Drug Form: INJ, Dosing Weight 63.636, kg, PRN, PRN B lood Glucose Results, Start date: 09/14/19 2:19:00 CDT, Duration: 30 day, Stop d ate: 10/14/19 2:18:00 CDT, 0 Start Date: 09/14/19 Stop Date: 09/15/19 Status: Discontinued Dextrose 50% Syringe (D50W) 25 gm, 50 mL, Route: IVP, Drug Form: INJ, Dosing Weight 63.636, kg, PRN, PRN Blo od Glucose Results, Start date: 09/14/19 2:19:00 CDT, Duration: 30 day, Stop anita e: 10/14/19 2:18:00 CDT, 0 Start Date: 09/14/19 Stop Date: 09/15/19 Status: Discontinued Dextrose 50% Syringe (D50W) 12.5 gm, 25 mL, Route: IVP, Drug Form: INJ, Dosing Weight 63.636, kg, PRN, PRN B lood Glucose Results, Start date: 09/14/19 4:22:00 CDT, Duration: 30 day, Stop d ate: 10/14/19 4:21:00 CDT, 0 Start Date: 09/14/19 Stop Date: 09/15/19 Status: Discontinued Dextrose 50% Syringe (D50W) 25 gm, 50 mL, Route: IVP, Drug Form: INJ, Dosing Weight 63.636, kg, PRN, PRN Blo od Glucose Results, Start date: 09/14/19 4:22:00 CDT, Duration: 30 day, Stop anita e: 10/14/19 4:21:00 CDT, 0 Start Date: 09/14/19 Stop Date: 09/15/19 Status: Discontinued dicyclomine 10 mg, 1 cap, Route: PO, Drug form: CAP, Bedtime, Dosing Weight 63.636, kg, Star t date: 09/14/19 21:00:00 CDT, Duration: 30 day, Stop date: 10/13/19 21:00:00 CD T, 0 Notes: (Same as: Bentyl) Start Date: 09/14/19 Stop Date: 09/15/19 Status: Discontinued digoxin 0.25 mg, 1 tab, Route: PO, Drug form: TAB, Daily, Dosing Weight 63.636, kg, Star t date: 09/14/19 9:00:00 CDT, Duration: 30 day, Stop date: 10/13/19 9:00:00 CDT, 0 Notes: Take on an Empty Stomach (Same as: Lanoxin) Start Date: 09/14/19 Stop Date: 09/15/19 Status: Discontinued diphenhydrAMINE 25 mg, Route: IVP, ONCE, Dosing Weight 63.636, kg, Priority: STAT, Start date: 0 09/13/19 22:53:00 CDT, Stop date: 09/13/19 22:53:00 CDT Start Date: 09/13/19 Stop Date: 09/13/19 Status: Completed divalproex sodium 500 mg oral tablet, extended release(Depakote ER) 1,500 mg, 6 tab, Route: PO, Drug form: ERTAB, Daily, Dosing Weight 63.636, kg, S tart date: 09/14/19 9:00:00 CDT, Duration: 30 day, Stop date: 10/13/19 9:00:00 C DT, 0 Notes: Hazardous Drug Group 2:Non-antineoplastic Hazardous Drug -- Refer to safe handling procedure PPE Matrix (Same as: Depakote ER) (Do Not Crush) Start Date: 09/14/19 Stop Date: 09/15/19 Status: Discontinued Fycompa 2 mg oral tablet 2 mg = 1 tab, PO, Bedtime, 0 Refill(s) Start Date: 09/14/19 Status: Ordered glucagon 1 mg, Route: IM, Drug form: PDR/INJ, PRN, Dosing Weight 63.636, kg, PRN Blood Gl ucose Results, Start date: 09/14/19 2:19:00 CDT, Duration: 30 day, Stop date: 2:18:00 CDT, 0 Start Date: 09/14/19 Stop Date: 09/15/19 Status: Discontinued glucagon 1 mg, Route: IM, Drug form: PDR/INJ, PRN, Dosing Weight 63.636, kg, PRN Blood Gl ucose Results, Start date: 09/14/19 4:22:00 CDT, Duration: 30 day, Stop date: 4:21:00 CDT, 0 Start Date: 09/14/19 Stop Date: 09/15/19 Status: Discontinued insulin lispro 1 unit, 0.01 mL, Route: SUB-Q, Drug form: SOLN, TID-Before Meals, Dosing Weight 63.636, kg, PRN Blood Glucose Results, Start date: 09/14/19 4:22:00 CDT, Duratio n: 30 day, Stop date: 10/14/19 4:21:00 CDT, 0 Notes: (Same as: Humalog) Roll in palms of hands gently; Do not shake vigorously . WASTE: F/P - Black; E - Municipal Trash BinStable for 28 days at room [facility].Expires in days from Date Start Date: 09/14/19 Stop Date: 09/15/19 Status: Discontinued insulin lispro 2 unit, 0.02 mL, Route: SUB-Q, Drug form: SOLN, TID-Before Meals, Dosing Weight 63.636, kg, PRN Blood Glucose Results, Start date: 09/14/19 4:22:00 CDT, Duratio n: 30 day, Stop date: 10/14/19 4:21:00 CDT, 0 Notes: (Same as: Humalog) Roll in palms of hands gently; Do not shake vigorously . WASTE: F/P - Black; E - Municipal Trash BinStable for 28 days at room [facility].Expires in days from Date Start Date: 09/14/19 Stop Date: 09/15/19 Status: Discontinued insulin lispro 3 unit, 0.03 mL, Route: SUB-Q, Drug form: SOLN, TID-Before Meals, Dosing Weight 63.636, kg, PRN Blood Glucose Results, Start date: 09/14/19 4:22:00 CDT, Duratio n: 30 day, Stop date: 10/14/19 4:21:00 CDT, 0 Notes: (Same as: Humalog) Roll in palms of hands gently; Do not shake vigorously . WASTE: F/P - Black; E - Municipal Trash BinStable for 28 days at room [facility].Expires in days from Date Start Date: 09/14/19 Stop Date: 09/15/19 Status: Discontinued insulin lispro 4 unit, 0.04 mL, Route: SUB-Q, Drug form: SOLN, TID-Before Meals, Dosing Weight 63.636, kg, PRN Blood Glucose Results, Start date: 09/14/19 4:22:00 CDT, Duratio n: 30 day, Stop date: 10/14/19 4:21:00 CDT, 0 Notes: (Same as: Humalog) Roll in palms of hands gently; Do not shake vigorously . WASTE: F/P - Black; E - Municipal Trash BinStable for 28 days at room [facility].Expires in days from Date Start Date: 09/14/19 Stop Date: 09/15/19 Status: Discontinued insulin lispro 5 unit, 0.05 mL, Route: SUB-Q, Drug form: SOLN, TID-Before Meals, Dosing Weight 63.636, kg, PRN Blood Glucose Results, Start date: 09/14/19 4:22:00 CDT, Duratio n: 30 day, Stop date: 10/14/19 4:21:00 CDT, 0 Notes: (Same as: Humalog) Roll in palms of hands gently; Do not shake vigorously . WASTE: F/P - Black; E - Municipal Trash BinStable for 28 days at room [facility].Expires in days from Date Start Date: 09/14/19 Stop Date: 09/15/19 Status: Discontinued insulin lispro 1 unit, 0.01 mL, Route: SUB-Q, Drug form: SOLN, Bedtime, Dosing Weight 63.636, k g, PRN Blood Glucose Results, Start date: 09/14/19 4:22:00 CDT, Duration: 30 day , Stop date: 10/14/19 4:21:00 CDT, 0 Notes: (Same as: Humalog) Roll in palms of hands gently; Do not shake vigorously . WASTE: F/P - Black; E - Municipal Tr[facility]St[facility].Expires in days from Date Start Date: 09/14/19 Stop Date: 09/15/19 Status: Discontinued insulin lispro 2 unit, 0.02 mL, Route: SUB-Q, Drug form: SOLN, Bedtime, Dosing Weight 63.636, k g, PRN Blood Glucose Results, Start date: 09/14/19 4:22:00 CDT, Duration: 30 day , Stop date: 10/14/19 4:21:00 CDT, 0 Notes: (Same as: Humalog) Roll in palms of hands gently; Do not shake vigorously . WASTE: F/P - Black; E - Municipal Trash BinStable for 28 days at room [facility].Expires in days from Date Start Date: 09/14/19 Stop Date: 09/15/19 Status: Discontinued insulin lispro 3 unit, 0.03 mL, Route: SUB-Q, Drug form: SOLN, Bedtime, Dosing Weight 63.636, k g, PRN Blood Glucose Results, Start date: 09/14/19 4:22:00 CDT, Duration: 30 day , Stop date: 10/14/19 4:21:00 CDT, 0 Notes: (Same as: Humalog) Roll in palms of hands gently; Do not shake vigorously . WASTE: F/P - Black; E - Municipal Trash BinStable for 28 days at [facility].Expires in days from Date Start Date: 09/14/19 Stop Date: 09/15/19 Status: Discontinued insulin lispro 4 unit, 0.04 mL, Route: SUB-Q, Drug form: SOLN, Bedtime, Dosing Weight 63.636, k g, PRN Blood Glucose Results, Start date: 09/14/19 4:22:00 CDT, Duration: 30 day , Stop date: 10/14/19 4:21:00 CDT, 0 Notes: (Same as: Humalog) Roll in palms of hands gently; Do not shake vigorously . WASTE: F/P - Black; E - Municipal Trash BinStable for 28 days at room [facility].Expires in days from Date Start Date: 09/14/19 Stop Date: 09/15/19 Status: Discontinued Keppra + Sodium Chloride 0.9% IV 100 mL 1,000 mg, Route: IVPB, ONCE, Dosing Weight 63.636, kg, Priority: STAT, Start anita e: 09/13/19 23:39:00 CDT, Stop date: 09/13/19 23:39:00 CDT, 0 Notes: Same as KeppraMix with 100 mL NS, LR or D5W MEDICATION WASTE Prod uct Size: 500 mgProduct Wasted: ___ mg Start Date: 09/13/19 Stop Date: 09/14/19 Status: Completed levETIRAcetam 500 mg, 1 tab, Route: PO, Drug form: TAB, Q12H, Dosing Weight 63.636, kg, Start date: 09/14/19 9:00:00 CDT, Duration: 30 day, Stop date: 10/13/19 21:00:00 CDT, 0 Notes: (Same as:Keppra) Start Date: 09/14/19 Stop Date: 09/15/19 Status: Discontinued levETIRAcetam 500 mg oral tablet 1,000 mg = 2 tab, PO, Q12H, # 16 tab, 0 Refill(s), Pharmacy: [facility] E #[id number] Start Date: 09/14/19 Stop Date: 09/18/19 Status: Ordered levETIRAcetam 500 mg oral tablet 1,000 mg = 2 tab, PO, BID, # 120 tab, 0 Refill(s) Start Date: 09/14/19 Status: Ordered levothyroxine 25 microgram, PO, Daily, 0 Refill(s) Start Date: 09/14/19 Status: Ordered levothyroxine 25 microgram, 1 tab, Route: PO, Drug form: TAB, Daily, Dosing Weight 63.636, kg, Start date: 09/14/19 6:30:00 CDT, Duration: 30 day, Stop date: 10/13/19 6:30:00 CDT, 0 Notes: Take 1 hour before or 2 hours after meal; Enteral feeds may interefere wi th the absorption of this medication. (Same as:Levothroid) Start Date: 09/14/19 Stop Date: 09/15/19 Status: Discontinued loperamide 2 mg oral capsule 2 mg = 1 cap, PO, TID, PRN loose stools, # 60 cap, 0 Refill(s) Start Date: 09/14/19 Stop Date: 09/14/19 Status: Discontinued meclizine 25 mg, 1 tab, Route: PO, Drug form: TAB, TID, Dosing Weight 63.636, kg, PRN Dizz iness, Start date: 09/14/19 4:20:00 CDT, Duration: 30 day, Stop date: 10/14/19 4 :19:00 CDT, 0 Notes: (Same as: Antivert) Start Date: 09/14/19 Stop Date: 09/15/19 Status: Discontinued metFORMIN 500 mg oral tablet 1,000 mg = 2 tab, PO, BID, 0 Refill(s) Start Date: 09/14/19 Status: Ordered metoclopramide 10 mg, Route: IVP, Drug form: INJ, ONCE, Dosing Weight 63.636, kg, Priority: STA T, Start date: 09/13/19 22:53:00 CDT, Stop date: 09/13/19 22:53:00 CDT Start Date: 09/13/19 Stop Date: 09/13/19 Status: Completed Sodium Chloride 0.9% (Bolus) IV 1,000 mL, Infuse Over: 1 hr, Route: IV, ONCE, Priority: STAT, Dosing Weight 63.6 36 kg, Start date: 09/13/19 22:44:00 CDT, Stop date: 09/13/19 22:44:00 CDT Start Date: 09/13/19 Stop Date: 09/13/19 Status: Completed venlafaxine 150 mg, 1 cap, Route: PO, Drug form: ERCAP, Daily, Dosing Weight 63.636, kg, Sta rt date: 09/14/19 9:00:00 CDT, Duration: 30 day, Stop date: 10/13/19 9:00:00 CDT , 0 Notes: Do not crush, or chew. Contents of capsule may be sprinkled on a spoonfu l of applesauce and swallowed immediately without chewing; followed with a glass of water to ensure complete swallowing of the pellets.(Same As: Effexor XR) Start Date: 09/14/19 Stop Date: 09/15/19 Status: Discontinued venlafaxine 150 mg oral capsule, extended release 150 mg = 1 cap, PO, Daily, # 30 cap, 0 Refill(s) Start Date: 09/14/19 Status: Ordered Results Most recent to 1 oldest [Reference Range]: Neutrophils # 4.0 K/CMM [1.5-8.1 K/CMM] (09/13/19 10:59 PM) Lymphocytes # 3.1 K/CMM [1.0-5.5 K/CMM] (09/13/19 10:59 PM) Monocytes # [0.0-0.8 0.8 K/CMM K/CMM] (09/13/19 10:59 PM) Eosinophils # 0.1 K/CMM [0.0-0.5 K/CMM] (09/13/19 10:59 PM) Basophils # [0.0-0.2 0.1 K/CMM K/CMM] (09/13/19 10:59 PM) eGFR 117 mL/min/1.73m2 1 *NA* (09/13/19 10:59 PM) UDS Note See Note (09/13/19 10:59 PM) A/G Ratio [0.7-1.6] 0.8 (09/13/19 10:59 PM) Albumin Lvl [3.5-5.0 3.7 g/dL g/dL] (09/13/19 10:59 PM) Alk Phos [39-136 83 unit/L unit/L] (09/13/19 10:59 PM) ALT [0-65 unit/L] 38 unit/L (09/13/19 10:59 PM) U Amph Scr Negative [Negative] *NA* (09/13/19 10:59 PM) AGAP [10.0-20.0 8.9 mEq/L mEq/L] *LOW* (09/13/19 10:59 PM) AST [0-37 unit/L] 39 unit/L *HI* (09/13/19 10:59 PM) B/C Ratio [6-25] 15 (09/13/19 10:59 PM) U Raisa Scr Negative [Negative] *NA* (09/13/19 10:59 PM) Basophils [0.0-1.0 0.6 % %] (09/13/19 10:59 PM) U Benzodiaz Scr Negative [Negative] *NA* (09/13/19 10:59 PM) BUN [7-22 mg/dL] 11 mg/dL (09/13/19 10:59 PM) Calcium Lvl 9.1 mg/dL [8.5-10.5 mg/dL] (09/13/19 10:59 PM) Total CK [12-191 163 unit/L unit/L] (09/13/19 10:59 PM) Chloride Lvl [95-109 96 mEq/L mEq/L] (09/13/19 10:59 PM) CO2 [24-32 mEq/L] 32 mEq/L (09/13/19 10:59 PM) U Cocaine Scr Negative [Negative] *NA* (09/13/19 10:59 PM) Creatinine Lvl 0.75 mg/dL [0.50-1.40 mg/dL] (09/13/19 10:59 PM) Eosinophils [0.0-4.0 1.6 % %] (09/13/19 10:59 PM) Globulin [2.7-4.2 4.6 g/dL g/dL] *HI* (09/13/19 10:59 PM) Glucose Lvl [70-99 162 mg/dL mg/dL] *HI* (09/13/19 10:59 PM) Hct [42.0-54.0 %] 36.6 % *LOW* (09/13/19 10:59 PM) Hgb [14.0-18.0 g/dL] 12.5 g/dL *LOW* (09/13/19 10:59 PM) Potassium Lvl 3.9 mEq/L [3.5-5.1 mEq/L] (09/13/19 10:59 PM) Lactic Acid Lvl 1.7 mMol/L [0.5-2.2 mMol/L] (09/13/19 10:59 PM) Lymphocytes 38.5 % [20.0-40.0 %] (09/13/19 10:59 PM) MCH [27.0-31.0 pg] 32.1 pg *HI* (09/13/19 10:59 PM) MCHC [32.0-36.0 34.1 g/dL g/dL] (09/13/19 10:59 PM) MCV [80.0-94.0 fL] 94.1 fL *HI* (09/13/19 10:59 PM) Monocytes [2.0-12.0 10.0 % %] (09/13/19 10:59 PM) MPV [7.4-10.4 fL] 7.3 fL *LOW* (09/13/19 10:59 PM) Sodium Lvl [135-145 133 mEq/L mEq/L] *LOW* (09/13/19 10:59 PM) U Opiate Scr Negative [Negative] *NA* (09/13/19 10:59 PM) U Phencyclidine Scr Negative [Negative] *NA* (09/13/19 10:59 PM) Platelet [133-450 386 K/CMM K/CMM] (09/13/19 10:59 PM) Segs [45.0-75.0 %] 49.3 % (09/13/19 10:59 PM) Total Protein 8.3 g/dL [6.4-8.4 g/dL] (09/13/19 10:59 PM) RBC [4.70-6.10 3.89 M/CMM M/CMM] *LOW* (09/13/19 10:59 PM) RDW [11.5-14.5 %] 13.3 % (09/13/19 10:59 PM) Bili Total [0.2-1.3 0.1 mg/dL mg/dL] *LOW* (09/13/19 10:59 PM) U Cannab Scr Negative [Negative] *NA* (09/13/19 10:59 PM) Troponin-I <0.02 ng/mL [0.00-0.40 ng/mL] (09/13/19 10:59 PM) UA Bacteria [None Occasional /HPF Seen /HPF] *NA* (09/13/19 10:59 PM) UA Bili [Negative] Negative *NA* (09/13/19 10:59 PM) UA Blood [Negative] Negative (09/13/19 10:59 PM) UA Color Ltyellow *NA* (09/13/19 10:59 PM) UA Glucose [Negative 500 mg/dL mg/dL] *ABN* (09/13/19 10:59 PM) UA Ketones [Negative Trace mg/dL mg/dL] *ABN* (09/13/19 10:59 PM) UA Leuk Est Negative [Negative] (09/13/19 10:59 PM) UA Mucus [None Seen Few /LPF /LPF] *NA* (09/13/19 10:59 PM) UA Nitrite Negative [Negative] (09/13/19 10:59 PM) UA pH [5.0-8.0] 7.0 (09/13/19 10:59 PM) UA Protein [Negative Negative mg/dL mg/dL] (09/13/19 10:59 PM) UA RBC [0-2 /HPF] <1 /HPF (09/13/19 10:59 PM) UA Spec Grav 1.009 [<=1.030] (09/13/19 10:59 PM) UA Sq Epi None Seen *NA* (09/13/19 10:59 PM) UA Turbidity [Clear] Clear (09/13/19 10:59 PM) UA Urobilinogen <=1.0 mg/dL [0.1-1.0 mg/dL] *NA* (09/13/19 10:59 PM) UA WBC [0-5 /HPF] 1 /HPF (09/13/19 10:59 PM) WBC [3.7-10.4 K/CMM] 8.2 K/CMM (09/13/19 10:59 PM) 1Result Comment: The eGFR is calculated [...] No entered on: 09/16/19 Assessment and Plan Extracted from: Title: Clinical Document Author: Jose Huynh MD Date: 09/14/19 REASON FOR CONSULTATIONS : SEIZURES A 39 year old male, with history of DM and epilepsy, presents to the ED via EMS following 2 seizure episodes onset this morning. Patient states that he was in the car with his family this morning, when he had his first seizure episode. Patient states that his nephew witnessed the seizure and states that patient threw his coffee across the car. Patient states that he thinks he had a second seizure episode later at home. Patient states that he fell and hit his head. Patient notes that he woke up in pain with a headache, prompting him to call EMS. Patient does not state any postictal symptoms. Patient denies headache at bedside. Patient states that he is currently on Divalproex. No other concerns or statements are voiced at this moment. Review of Systems Constitutional symptoms: No fever, no chills. Skin symptoms: No jaundice, Eye symptoms: No pain, ENMT symptoms: No sore throat, no nasal congestion. Respiratory symptoms: No shortness of breath, no cough. Cardiovascular symptoms: No chest pain, no palpitations. Gastrointestinal symptoms: No abdominal pain, no nausea, no vomiting, no diarrhea. Genitourinary symptoms: No dysuria, Neurologic symptoms: Headache. Psychiatric symptoms: Negative except as documented in HPI. Endocrine symptoms: Negative except as documented in HPI. Hematologic/Lymphatic symptoms: Negative except as documented in HPI. Allergy/immunologic symptoms: Negative except as documented in HPI. Additional review of systems information: All other systems reviewed and otherwise negative. Health Status Allergies: Allergic Reactions (All) Severity Not Documented HYDROcodone-pseudoephedrine- No reactions were documented. Simvastatin- No reactions were documented. Canceled/Inactive Reactions (All) Severity Not Documented MetFORMIN- No reactions were documented.. Medications: (Selected) Inpatient Medications Ordered Sodium Chloride 0.9% (Bolus) IV: 1,000 mL, IV, ONCE diphenhydrAMINE: 25 mg, IVP, ONCE metoclopramide: 10 mg, IVP, ONCE Prescriptions Prescribed docusate sodium 100 mg oral capsule: 100 mg, 1 cap, PO, Q12H, for 10 day, 20 cap, 0 Refill(s) levETIRAcetam 500 mg oral tablet: 1,000 mg, 2 tab, PO, Q12H, for 4 day, 16 tab, 0 Refill(s) omeprazole 20 mg oral enteric coated tablet: 20 mg, 1 tab, PO, BID, 30 tab, 0 Refill(s) Documented Medications Documented Protonix 40 mg oral enteric coated tablet: 40 mg, 1 tab, PO, Daily, 30 tab, 0 Refill(s) Requip 1 mg oral tablet: 1 mg, 1 tab, PO, TID, 0 Refill(s) busPIRone: 5 mg, PO, BID, 0 Refill(s) citalopram: 40 mg, PO, Daily, 0 Refill(s) dicyclomine 10 mg oral capsule: 10 mg, 1 cap, PO, QID, 0 Refill(s) digoxin: 250 microgram, PO, Daily, 0 Refill(s) divalproex sodium 500 mg oral tablet, extended release(Depakote ER): 1,500 mg, 3 tab, PO, Daily, 0 Refill(s) lactulose 10 g/15 mL oral syrup: 20 gm, 30 mL, PO, Daily, 0 Refill(s) meclizine 12.5 mg oral tablet: 12.5 mg, 1 tab, PO, PRN, one tab up to three for dizziness, 0 Refill(s) midodrine: 5 mg, PO, TID, 0 Refill(s), per nurse's notes. Past Medical/ Family/ Social History Medical history: Active Seizure ([id number]) Diabetes mellitus ([id number]) Resolved Leukemia ([id number]): Resolved., Reviewed as documented in chart. Surgical history: Gallbladder stone removal ([id number]) on 07/18/2013 at 32 Years. Cholecystectomy ([id number])., Reviewed as documented in chart. Family history: Not significant. Social history: Social & Psychosocial Habits Tobacco 09/13/2019 Use: Never smoker Exposure to Tobacco Smoke None Cigarette Smoking Last 365 Days No Reg Smoking Cessation Counseling No , Reviewed as documented in chart. Problem list: Active Problems (2) Diabetes mellitus Seizure , per nurse's notes. Physical Examination Vital Signs ED-Vital Signs 09/13/2019 22:35 Apical Heart Rate 114 bpm HI Respiratory Rate 17 BRMIN Normal SpO2 percent 97 % Normal 09/13/2019 22:21 Temperature Oral 99.8 DegF HI Apical Heart Rate 119 bpm HI Respiratory Rate 15 BRMIN Normal SpO2 percent 97 % Normal Systolic Blood Pressure 160 mmHg HI Diastolic Blood Pressure 103 mmHg HI 09/13/2019 22:08 Temperature Oral 100.1 DegF HI Peripheral Pulse Rate 97 bpm Normal Respiratory Rate 16 BRMIN Normal SpO2 percent 96 % Normal Systolic Blood Pressure 131 mmHg Normal Diastolic Blood Pressure 86 mmHg Normal . General: Alert, no acute distress, Not ill-appearing, Skin: Warm, intact, moist. Head: Normocephalic, atraumatic. Neck: Supple, no tenderness. Eye: Pupils are equal, round and reactive to light, extraocular movements are intact, normal conjunctiva. Ears, nose, mouth and throat: Oral mucosa moist. Cardiovascular: No murmur, Tachycardia. Respiratory: Lungs are clear to auscultation, respirations are non-labored, breath sounds are equal, Symmetrical chest wall expansion. Chest wall: No tenderness, No deformity. Back: Nontender. Musculoskeletal: Normal ROM. Gastrointestinal: Soft, Nontender, Non distended, Normal bowel sounds. SKULL AND SPINE Good range of motion. No pain on palpation. MENTAL STATUS Consciousness: Awake and alert. Orientation: The patient is oriented to person, place, time. Affect: Normal for situation. CRANIAL NERVES CN II (Optic Nerve): Pupils: Equal and reactive to light bilaterally. CN III, IV, : Extraocular movements are full and without nystagmus. CN V: Facial sensation is normal. CN VII: Facial motion is normal. CN VIII: Hearing is intact to finger rub bilaterally. CN IX, X: The palate elevates in the midline. CN XI: Shoulder shrug is symmetrical. CN XII: The tongue protrudes in the midline. MOTOR Bulk: Normal bulk. Tone: Normal tone in upper and lower extremities bilaterally. Fasciculations: There are no fasciculations noted. Effort: Effort appears to be normal. STRENGTH Upper Extremity Strength 5/5 in both sides Lower Extremity Strength 5/5 in both sides SENSORY Sensory: Sensory is normal to light touch in upper and lower extremities. REFLEXES Biceps (R): 2/4 (L): 2/4 Triceps (R): 2/4 (L) 2/4 Brachioradialis (R): 2/4 (L): 2/4 Knee (R): 2/4 (L): 2/4 Ankle (R): 2/4 (L): 2/4 Babinski (R): Down / (L): Down GAIT Gait: Gait: Uses walker. Assessment/Plan ASSESSMENT Seizures Epilepsy DM Hypothyroidism PLAN: Ok to be discharged from neurological stand point Add keppra 500 mg po bid No driving for six months of period Follow up with Dr. Goetz his neurologist in one week Extracted from: Title: Progress Note Author: Ofe Blackman Da te: 09/14/19 MD 1.Seizure(R56.9) 2.DM2 (diabetes mellitus, type 2)(E11.9) 3.Hypothyroidism(E03.9) 4.Depression(F32.9) Plan Please see HPI for more detail Neurology has been consulted Medications reviewed and continue provide symptomatic care SCD Home Extracted from: Title: History and Physical Author: Betty Blanco MD Date: 09/14/19 39-year-old M with PMH of history of natty kemia, in remission, seizures, DM 2, hypothyroidism and depressionadmitted for seizures 1.Seizure(R56.9) Head CT without acute findings. --Seizure MPP initiated --Continue divalproex --Neurology consulted, appreciate recomm endations --Keppra 500 mg twice daily Ordered: Admit/Condition, 09/14/19 2:35:00 CDT, Status: Out Patient with Observation Services, Telemetry Capable Location, Expected LOS: 1 Midnight, Betty Blanco MD, Admit MD Review/Approve Yes, Isolation: No Isolation/Standard Precautions, Seizure 2.DM2 (diabetes mellitus, type 2)(E11.9) Insulin sliding scale Accu-Cheks before meals and at bedtime 3.Hypothyroidism(E03.9) Continue Synthroid 4.Depression(F32.9) Continue aripiprazole Ambulate Home when stable
--- OUTSIDE RECORDS SUMMARY | 2019-09-22 14:42 | XMS REPORT | Continuity of Care Document ---
Author Author [employer] GUSTAVO Medrano Organization [employer] [facility] Index Address Unknown Phone Unavailable Care Team Providers Care Flight Reservations Manager Name Role Phone [employer] [facility] Unavailable Un available Problems Problem Status Onset Date Classification Date Reported Comments Source Dizziness and giddiness 09/16/2019 09/18/[address] [facility] Type 2 diabetes mellitus with hyperglycemia 09/16/2019 09/18/[address] [facility] DIZZINESS Active 09/16/[address] [facility] SEIZURES Active 09/13/[address] [facility] SEIZURE Active 09/13/[address] [facility] Syncope and collapse 05/02/2018 11/19/[address] [facility] SYNCOPE Active 05/02/[address] [facility] Discharge Diagnosis: Upper abdominal pain, unspecified 07/07/2015 07/10/2015 [facility] ABDOMINAL PAIN Active 07/07/[address] [facility] SUICIDAL Active 01/16/2015 [facility] SDH S/P FALL Active 11/22/2014 [facility] SZ, HYPONATREMIA Active 11/11/2014 [facility] SUBDURAL HEMTOMA, S/P FALL Act chanel 11/11/2014 [facility] SDH Active 0 11/03/2014 [facility] HEADACHE Active 11/03/[address] [facility] LFLT TRANSFER#[id number] Active 11/03/2014 [facility] Discharge Diagnosis: Headache 11/02/2014 11/05/[address] [facility] Discharge Diagnosis: Gastritis 06/24/2014 06/27/[address] [facility] Discharge Diagnosis: Nausea & vomiting 06/24/2014 06/27/[address] [facility] OTHER Active 06/24/[address] [facility] Diabetes mellitus (disorder) A ctive Problem 05/2019 [facility] Leukemia, disease (disorder) R esolved Problem 05/2019 [facility], [facility] Seizure (finding) Active Problem 09/18/2019 [facility] Headache 11/19/[address] [facility] Low back pain 11/19/[address] [facility] Unspecified fall, initial encounter 11/19/[address] [facility] Type 2 diabetes mellitus without complications 11/19/[address] [facility] Epilepsy, unspecified, not intractable, without status epilepticus 11/19/[address] [facility] Other long-term (current) drug therapy 11/19/[address] [facility] 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 11/19/[address] [facility] Depressive disorder (disorder) Active Problem 05/[address] [facility] Hypothyroidism (disorder) Acti ve Problem 05/[address] [facility] Diabetes mellitus type 2 (disorder) Active Problem 05/[address] [facility] SUBDURAL HEMORRHAGE Active [facility] CONVULSIONS NEC Active [facility] ABN BLOOD CHEMISTRY NEC Active [facility] FEBRILE CONVULSIONS NOS Active [facility] UNSPECIFIED CONVULSIONS Active [facility] Medications Medication Details Route Status Patient Instructions Ordering Provider Order Date Source Sodium Chloride 0.9% (Bolus) IV 1,000 mL, 1000 ml/hr, Infuse Over: 1 hr, Route: IV, 1,000, Drug form: INJ, ONCE, Priority: STAT, Dosing Weight 68.182 kg, Start date: 09/16/19 11:57:00 CDT, Stop date: 09/16/19 11:57:00 CDT, 0 Inactive 09/16/[address] [facility] ARIPiprazole Notes: (Same as: Abilify) No Longer Active 09/15/[address] [facility] Dicyclomine Notes: (Same as: B entyl) No Longer Active 09/15/[address] [facility] Levetiracetam 500 MG Oral Tablet 1,000 mg = 2 tab, PO, BID, # 120 tab, 0 Refill(s) Active 09/14/[address] [facility] Levetiracetam 500 MG Oral Tablet 1,000 mg = 2 tab, PO, Q12H, # 16 tab, 0 Refill(s), Pharmacy: [id number] Active 09/14/[address] [facility] Levetiracetam Notes: (Same as: Keppra) No Longer Active 09/14/[address] [facility] Digoxin Notes: Take on an Empt y Stomach (Same as: Lanoxin) No Longer Active 09/14/[address] [facility] 24 HR Divalproex Sodium 500 MG Extended Release Tablet Notes: Hazardous Drug Group 2:Non-antineoplastic Hazardous Drug -- Refer to safe handling procedure PPE Matrix (Same as: Depakote ER) (Do Not Crush) No Longer Active 09/14/[address] [facility] venlafaxine Notes: Do not jay h, or chew. Contents of capsule may be sprinkled on a spoonful of applesauce and swallowed immediately without chewing; followed with a glass of water to ensure complete swallowing of the pellets. (Same As: Effexor XR) No Longer Active 09/14/[address] [facility] Thyroxine Notes: Take 1 hour b efore or 2 hours after meal; Enteral feeds may interefere with the absorption of this medication. (Same as:Levothroid) No Longer Activ e 09/14/[address] [facility] Dextrose 50% Syringe (D50W) 12 .5 gm, 25 mL, Route: IVP, Drug Form: INJ, Dosing Weight 63.636, kg, PRN, PRN Blood Glucose Results, Start date: 09/14/19 4:22:00 CDT, Duration: 30 day, Stop date: 10/14/19 4:21:00 CDT, 0 No Longer Active 09/14/[address] [facility] Glucagon 1 mg, Route: IM, Drug form: PDR/INJ, PRN, Dosing Weight 63.636, kg, PRN Blood Glucose Results, Start date: 09/14/19 4:22:00 CDT, Duration: 30 day, Stop date: 10/14/19 4:21:00 CDT, 0 No Longer Active 09/14/[address] [facility] Insulin Lispro Notes: (Same as : Humalog) Roll in palms of hands gently; Do not shake vigorously. WASTE: F/P - Black; E - Municipal Trash Bin Stable for 28 days at room temperature. Expires in days from Date No Longer Active 09/14/[address] [facility] Meclizine Notes: (Same as: Ant ivert) No Longer Active 09/14/[address] [facility] Metformin hydrochloride 500 MG Oral Tablet 1,000 mg = 2 tab, PO, BID, 0 Refill(s) Active 09/14/[address] [facility] Thyroxine 25 microgram, PO, Da nichole, 0 Refill(s) Active 09/14/[address] [facility] ARIPiprazole 5 mg oral tablet 5 mg = 1 tab, PO, Bedtime, 0 Refill(s) Active 09/14/[address] [facility] perampanel 2 MG Oral Tablet [FYCOMPA] 2 mg = 1 tab, PO, Bedtime, 0 Refill(s) Active 09/14/[address] [facility] venlafaxine 150 mg oral capsule, extended release 150 mg = 1 cap, PO, Daily, # 30 cap, 0 Refill(s) Active 09/14/[address] [facility] loperamide 2 mg oral capsule 2 mg = 1 cap, PO, TID, PRN loose stools, # 60 cap, 0 Refill(s) Inactive 09/14/[address] [facility] Dextrose 50% Syringe (D50W) 12 .5 gm, 25 mL, Route: IVP, Drug Form: INJ, Dosing Weight 63.636, kg, PRN, PRN Blood Glucose Results, Start date: 09/14/19 2:19:00 CDT, Duration: 30 day, Stop date: 10/14/19 2:18:00 CDT, 0 No Longer Active 09/14/[address] [facility] Glucagon 1 mg, Route: IM, Drug form: PDR/INJ, PRN, Dosing Weight 63.636, kg, PRN Blood Glucose Results, Start date: 09/14/19 2:19:00 CDT, Duration: 30 day, Stop date: 10/14/19 2:18:00 CDT, 0 No Longer Active 09/14/[address] [facility] Acetaminophen Notes: Do not ex ceed 4 gm/day. (Same as: Tylenol) No Longer Active 09/14/[address] [facility] Keppra Notes: Same as Keppra Mix with 100 mL NS, LR or D5W MEDICATION WASTE Product Size: 500 mg Product Wasted: ___ mg No Longer Active 09/14/[address] [facility] 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, 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, Drug form: INJ, ONCE, Dosing Weight 63.636, kg, Priority: STAT, Start date: 09/13/19 22:53:00 CDT, Stop date: 09/13/19 22:53:00 CDT Inactive 09/14/[address] [facility] Diphenhydramine 25 mg, Route: IVP, ONCE, Dosing Weight 63.636, kg, Priority: STAT, Start date: 09/13/19 22:53:00 CDT, Stop date: 09/13/19 22:53:00 CDT Inactive 09/14/[address] [facility] Sodium Chloride 0.9% (Bolus) IV 1,000 mL, Infuse Over: 1 hr, Route: IV, ONCE, Priority: STAT, Dosing Weight 63.636 kg, Start date: 09/13/19 22:44:00 CDT, Stop date: 09/13/19 22:44:00 CDT Inactive 09/14/[address] [facility] Tylenol Notes: Max acetaminoph en 4000 mg/day (4 gm/day). 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 Inactive 05/02/[address] [facility] omeprazole 20 mg oral enteric coated tablet 20 mg = 1 tab, PO, BID, # 30 tab, 0 Refill(s) Active 07/07/2015 [facility] Morphine 4 mg, Route: IVP, ONC E, Dosing Weight 72.727, kg, Priority: STAT, Start date: 07/07/15 6:44:00, Stop date: 07/07/15 6:44:00 Inactive 07/07/2015 [facility] Ondansetron Notes: (Same as: Alexx jj) MEDICATION WASTE Product Size: 4 mg Product Wasted: ___ mg Inactive 07/07/2015 [facility] Saline Flush 0.9% Notes: (Same as: BD Posiflush) Inactive 07/07/2015 [facility] Sodium Chloride 0.154 MEQ/ML Injectable Solution 1,000 mL, 1000 ml/hr, Infuse Over: 1 hr, Route: IV, 1,000, Drug form: INJ, ONCE, Priority: STAT, Dosing Weight 72.727 kg, Start date: 07/07/15 6:44:00, Duration: 1 doses or times, Stop date: 03/21/16 6:44:00 Inactive 07/07/2015 [facility] Benadryl Notes: (Same as: Michelle dryl) Inactive 01/17/2015 [facility] Sodium Chloride 0.154 MEQ/ML Injectable Solution 500 mL, 500 ml/hr, Infuse Over: 1 hr, Route: IV, 500, Drug form: INJ, ONCE, Priority: STAT, Dosing Weight 68.182 kg, Start date: 01/16/15 21:54:00, Duration: 1 doses or times, Stop date: 01/16/15 21:54:00 Inactive 01/17/2015 [facility] nter Reglan Notes: (Same as: Reglan) Inactive 01/17/2015 [facility] tramadol hydrochloride 50 MG Oral Tablet 50 mg = 1 tab, PO, Q6H, PRN Pain, X 10 day, # 40 tab, 0 Refill(s) Active 11/24/2014 [facility] nter 24 HR Divalproex Sodium 500 MG Extended Release Tablet Notes: (Same as: Depakote ER) Once daily dosing; indicated for migraines. Divalproex sodium extended-release tab. Do not chew or crush. "Do Not Crush" Inactive 11/24/2014 [facility] Digoxin Notes: Take on an Empt y Stomach (Same as: Lanoxin) Inactive 11/24/2014 [facility] Citalopram Notes: (Same As: Ce Storm) Inactive 11/24/2014 [facility] heparin Notes: porcine heparin Inactive 11/24/2014 [facility] Levetiracetam 500 MG Oral Tablet Notes: (Same as:Kepradipra) No Longer Active 11/24/2014 [facility] Tramadol Notes: Not to exceed 400mg/day. (Same As: Ultram) No Longer Active 11/23/2014 [facility] Requip Notes: (Same as: Requip) No Longer Active 11/23/2014 [facility] Tylenol Notes: Do not exceed 4 gm/day. (Same as: Tylenol) No Longer Active 11/23/2014 [facility] Keppra Notes: (Same as:Zonia) Inactive 11/23/2014 [facility] Levetiracetam Notes: (Same as: Zonia) Inactive 11/23/2014 [facility] pantoprazole Notes: Tablet fer uld not be chewed or crushed. (Same as: Protonix) N o Longer Active 11/23/2014 [facility] nter Saline Flush 0.9% Notes: (Same as: BD Posiflush) No Longer Active 11/23/2014 [facility] Docusate Notes: (Same as: Cola ce) (Do Not Crush) No Longer Active 11/23/2014 [facility] sennosides, [facility] Notes: (Same a s: Senokot) No Longer Active 11/23/2014 [facility] Levetiracetam 1000 MG Oral Tablet [Keppra] 1,000 mg, 1 tab, Route: PO, ONCE, Dosing Weight 70, kg, Start date: 11/22/14 19:23:00, Stop date: 11/22/14 19:23:00 Inactive 11/23/2014 [facility] nter Dextrose 50% Syringe 6.25 gm, 12.5 mL, Route: IVP, Drug Form: INJ, Dosing Weight 70, kg, PRN, PRN Abnormal Lab Result, Start date: 11/22/14 19:20:00, Duration: 30 day, Stop date: 12/22/14 19:19:00 No Longer Active 11/23/2014 [facility] Regular Insulin, Human 100 UNT/ML Injectable Solution 60 units) Stable for 28 days at room temperature Expires in days from Date No Longer Active 11/23/2014 [facility] nter Saline Flush 0.9% Notes: (Same as: BD Posiflush) No Longer Active 11/23/2014 [facility] Ondansetron Notes: (Same as: Alexx jj) MEDICATION WASTE Product Size: 4 mg Product Wasted: ___ mg No Longer Active 11/23/2014 [facility] Levetiracetam Notes: Same as K eppra Mix with 100 mL NS, LR or D5W MEDICATION WASTE Product Size: 500 mg Product Wasted: ___ mg Inactive 11/23/2014 [facility] Sodium Chloride 0.154 MEQ/ML Injectable Solution 1,000 mL, Rate: 100 ml/hr, Infuse over: 10 hr, Route: IV, Dosing Weight 70 kg, Total Volume: 1,000, Start date: 11/22/14 19:20:00, Duration: 30 day, Stop date: 12/22/14 19:19:00 No Longer Active 11/23/2014 [facility] nter tramadol hydrochloride 50 MG Oral Tablet 50 mg = 1 tab, PO, Q6H, PRN Pain, X 10 day, # 40 tab, 0 Refill(s) Active 11/15/2014 [facility] nter senna 8.6 mg oral tablet 8.6 m g = 1 tab, PO, Q12H, X 10 day, # 20 tab, 0 Refill(s) Active 11/15/2014 [facility] nter Levetiracetam 500 MG Oral Tablet 1,000 mg = 2 tab, PO, Q12H, # 16 tab, 0 Refill(s) Active 11/15/2014 [facility] nter docusate sodium 100 mg oral capsule 100 mg = 1 cap, PO, Q12H, # 20 cap, 0 Refill(s) Active 11/15/2014 [facility] nter 24 HR Divalproex Sodium 500 MG Extended Release Tablet 1,500 mg = 3 tab, PO, Daily, 0 Refill(s) Active 11/15/2014 [facility] nter pantoprazole 40 MG Enteric Coated Tablet [Protonix] 40 mg = 1 tab, PO, Daily, # 30 tab, 0 Refill(s) Active 11/15/2014 [facility] nter pneumococcal capsular polysaccharide typ e 1 vaccine / pneumococcal capsular polysaccharide type 10A vaccine / pneumococcal capsular polysaccharide type 11A vaccine / pneumococcal capsular polysaccharide type 12F vaccine / pneumococcal capsular polysacchar Notes: (Same as: Pneumovax 23) Inactive 11/14/2014 [facility] heparin Notes: porcine heparin No Longer Active 11/12/2014 [facility] Flomax Notes: (Same As: Flomax) No Longer Active 11/12/2014 [facility] Ibuprofen Notes: (Same as: Mot rin) "Do Not Crush" Give with food. No Longer Active 11/12/2014 [facility] Docusate Notes: (Same as: Cola ce) (Do Not Crush) No Longer Active 11/12/2014 [facility] sennosides, [facility] Notes: (Same a s: Senokot) No Longer Active 11/12/2014 [facility] Divalproex Sodium 500 MG Enteric Coated Tablet Notes: (Same as: Depakote Delayed Release) Do not confuse with the extended-release tablet. Delayed absorption enteric coated tablet. Do not crush No Longer Active 11/12/2014 [facility] Sodium Chloride 1000 MG Oral Tablet 3 gm, 3 tab, Route: PO, Drug form: TAB, Q6H, Dosing Weight 61.8, kg, Start date: 11/12/14 6:00:00, Duration: 30 day, Stop date: 12/12/14 0:00:00 No Longer Active 11/12/2014 [facility] magnesium sulfate 2 gm, 50 mL, Route: IVPB, Drug form: INJ, Q2H, Start date: 11/12/14 4:00:00, Duration: 2 doses or times, Stop date: 11/12/14 6:00:00 Inactive 11/12/2014 [facility] Regular Insulin, Human 100 UNT/ML Injectable Solution 60 units) Stable for 28 days at room temperature Expires in days from Date No Longer Active 11/12/2014 [facility] nter Dextrose 50% Syringe 6.25 gm, 12.5 mL, Route: IVP, Drug Form: INJ, Dosing Weight 61.8, kg, PRN, PRN Abnormal Lab Result, Start date: 11/11/14 22:28:00, Duration: 30 day, Stop date: 12/11/14 22:27:00 No Longer Active 11/12/2014 [facility] tramadol hydrochloride 50 MG Oral Tablet Notes: Not to exceed 400mg/day. (Same As: Ultram) No Longer Active 11/12/2014 [facility] nter Saline Flush 0.9% Notes: (Same as: BD Posiflush) No Longer Active 11/12/2014 [facility] Levetiracetam Notes: (Same as: Keppra) No Longer Active 11/12/2014 [facility] Saline Flush 0.9% Notes: (Same as: BD Posiflush) No Longer Active 11/11/2014 [facility] Sodium Chloride 0.154 MEQ/ML Injectable Solution 1,000 mL, Rate: 100 ml/hr, Infuse over: 10 hr, Route: IV, Dosing Weight 68.182 kg, Total Volume: 1,000, Start date: 11/11/14 17:13:00, Duration: 30 day, Stop date: 12/11/14 17:12:00 No Longer Active 11/11/2014 [facility] nter Levetiracetam 1,000 mg, Route: IVPB, ONCE, Dosing Weight 68.182, kg, Start date: 11/11/14 17:13:00, Stop date: 11/11/14 17:13:00 Inactive 11/11/2014 [facility] Keppra Notes: Same as Keppra Mix with 100 mL NS, LR or D5W MEDICATION WASTE Product Size: 500 mg Product Wasted: ___ mg Inactive 11/11/2014 [facility] Sodium Chloride 1000 MG Oral Tablet 3 gm = 3 tab, PO, Q6H, # 360 tab, 0 Refill(s) Active 11/07/2014 [facility] nter tramadol hydrochloride 50 MG Oral Tablet 50 mg = 1 tab, PO, Q6H, PRN Pain Score 4-6, X 30 day, # 120 tab, 0 Refill(s) Active 11/07/2014 [facility] tamsulosin 0.4 mg oral capsule 0.4 mg = 1 cap, PO, Daily, # 21 cap, 0 Refill(s) Active 11/07/2014 [facility] nter senna 8.6 mg oral tablet 8.6 m g = 1 tab, PO, Q12H, X 5 day, # 10 tab, 0 Refill(s) Active 11/07/2014 [facility] nter docusate sodium 100 mg oral capsule 100 mg = 1 cap, PO, Q12H, # 28 cap, 0 Refill(s) Active 11/07/2014 [facility] nter Midodrine 5 mg, PO, TID, 0 Ref ill(s) Active 11/07/2014 [facility] Lactulose 667 MG/ML Oral Solution 10 gm = 15 mL, PO, Daily, 0 Refill(s) Active 11/07/2014 [facility] ropinirole 1 MG Oral Tablet [Requip] 1 mg = 1 tab, PO, TID, 0 Refill(s) Active 11/07/2014 [facility] Citalopram 40 mg, PO, Daily, 0 Refill(s) Active 11/07/2014 [facility] meclizine 12.5 mg oral tablet 12.5 mg = 1 tab, PO, BID, 0 Refill(s) Active 11/07/2014 [facility] dicyclomine 10 mg oral capsule 20 mg = 2 cap, PO, QID, 0 Refill(s) Active 11/07/2014 [facility] Buspirone 5 mg, PO, BID, 0 Ref ill(s) Active 11/07/2014 [facility] Valproic Acid 250 MG Enteric Coated Capsule Special Instructions: 1500mg Daily Active 11/07/2014 [facility] nt Metformin 500 mg, PO, BID, 0 R efill(s) Active 11/07/2014 [facility] Digoxin .25, Daily, 0 Refill(s) Active 11/07/2014 [facility] Divalproex Sodium 500 MG Enteric Coated Tablet [Depakote] 500 mg = 1 tab, PO, TID, 0 Refill(s) Active 11/07/2014 [facility] nter Sodium Chloride 1000 MG Oral Tablet 2 gm, 2 tab, Route: PO, Drug form: TAB, Q8H, Dosing Weight 68.182, kg, Start date: 11/06/14 16:00:00, Duration: 30 day, Stop date: 12/06/14 8:00:00 Inactive 11/06/2014 [facility] 24 HR Divalproex Sodium 500 MG Extended Release Tablet Notes: (Same as: Depakote ER) Once daily dosing; indicated for migraines. Divalproex sodium extended-release tab. Do not chew or crush. "Do Not Crush" No Longer Active 11/06/2014 [facility] heparin sodium, porcine 2500 UNT/ML Injectable Solutio n Notes: porcine heparin No Longer Active 11/06/2014 [facility] nter Zofran Notes: (Same as: Zofran) No Longer Active 11/06/2014 [facility] Tramadol Notes: Not to exceed 400mg/day. (Same As: Ultram) No Longer Active 11/05/2014 [facility] 24 HR Divalproex Sodium 500 MG Extended Release Tablet [Depakote] Notes: (Same as: Depakote ER) Once bret y dosing; indicated for migraines. Divalproex sodium extended-release tab. Do not chew or crush. "Do Not Crush" Inactive 11/05/2014 [facility] Citalopram Notes: (Same As: Ce Storm) No Longer Active 11/05/2014 [facility] Sodium Chloride 1000 MG Oral Tablet 3 gm, 3 tab, Route: PO, Drug form: TAB, Q6H, Dosing Weight 68.182, kg, Start date: 11/05/14 6:00:00, Duration: 30 day, Stop date: 12/05/14 0:00:00 No Longer Active 11/05/2014 [facility] calcium gluconate + Sodium Chloride 0.9% IV 100 mL 3,000 mg, 30 mL, Route: IV, ONCE, Start date: 11/05/14 4:15:00, Stop date: 11/05/14 4:15:00 Inactive 11/05/2014 [facility] magnesium sulfate 2 gm, 50 mL, Route: IVPB, Drug form: INJ, Q2H, Start date: 11/05/14 4:00:00, Duration: 1 doses or times, Stop date: 11/05/14 4:00:00 Inactive 11/05/2014 [facility] Sodium Chloride 1000 MG Oral Tablet 2 gm, 2 tab, Route: PO, Drug form: TAB, Q8H, Dosing Weight 68.182, kg, Start date: 11/05/14 2:24:00, Duration: 30 day, Stop date: 12/05/14 0:00:00 Inactive 11/05/2014 [facility] nter Water 1000 MG/ML Injectable Solution Special Instructions: For IMU and ICU use only. See Order Comments!! Inactive 11/05/2014 [facility] Flomax Notes: (Same As: Flomax ) "Do Not Crush" No Longer Active 11/05/2014 [facility] Midodrine Notes: (Same as:Proa matine) No Longer Active 11/04/2014 [facility] Requip Notes: (Same as: Requip) No Longer Active 11/04/2014 [facility] digoxin 250 mcg (0.25 mg) oral tablet Notes: Take on an Empty Stomach (Same as: Lanoxin) No Longer Active 11/04/2014 [facility] nter Valproic Acid 100 MG/ML Injectable Solution Notes: Dilute in at least 50ml D5W or NS. Infusion rate = 20 mg/min (Same As: Depacon) No Longer Active 11/04/2014 [facility] 24 HR Divalproex Sodium 500 MG Extended Release Tablet [Depakote] Notes: (Same as: Depakote ER) Once bret y dosing; indicated for migraines. Divalproex sodium extended-release tab. Do not chew or crush. "Do Not Crush" Inactive 11/04/2014 [facility] Zofran Notes: (Same as: Zofrhailey ) MEDICATION WASTE Product Size: 4 mg Product Wasted: ___ mg Inactive 11/04/2014 [facility] nter Acetaminophen Notes: Infuse ov er 15 minutes Do not exceed 4gm/day of acetaminophen MEDICATION WASTE Product Size: 1000 mg Product Wasted: ___ mg Inactive 11/04/2014 [facility] nter magnesium sulfate 2 gm, 50 mL, Route: IVPB, Drug form: INJ, ONCE, Start date: 11/04/14 5:00:00, Stop date: 11/04/14 5:00:00 Inactive 11/04/2014 [facility] Water 1000 MG/ML Injectable Solution Special Instructions: For IMU and ICU use only. See Order Comments!! Inactive 11/04/2014 [facility] Ondansetron Notes: (Same as: Alexx jj) MEDICATION WASTE Product Size: 4 mg Product Wasted: ___ mg No Longer Active 11/04/2014 [facility] Naloxone Notes: Same as Narcan No Longer Active 11/04/2014 [facility] Flumazenil Notes: (Same as: Ro mazicon) No Longer Active 11/04/2014 [facility] Fentanyl Notes: (Same as: Subl imaze) Preservative free. No Longer Active 11/04/2014 [facility] Saline Flush 0.9% Notes: prese rvative free. No Longer Active 11/04/2014 [facility] Docusate Notes: (Same as: Cola ce) (Do Not Crush) No Longer Active 11/04/2014 [facility] sennosides, [facility] Notes: (Same a s: Senokot) No Longer Active 11/04/2014 [facility] Levetiracetam Notes: (Same as: Keppra) No Longer Active 11/04/2014 [facility] ceFAZolin (SCIP) + Sodium Chloride 0.9% IV 100 mL Notes: (Same As: [facility] carlosfzol) Cefazolin FOR IV SET ONLY MEDICATION WASTE Product Size: 1000 mg Product Wasted: _0__ mg No Longer Active 11/04/2014 [facility] Regular Insulin, Human 100 UNT/ML Injectable Solution 60 units) Stable for 28 days at room temperature Expires in days from Date No Longer Active 11/04/2014 [facility] nter Dextrose 50% Syringe 25 gm, 50 mL, Route: IVP, Drug Form: INJ, Dosing Weight 68.182, kg, PRN, PRN Abnormal Lab Result, Start date: 11/03/14 20:53:00, Duration: 30 day, Stop date: 12/03/14 20:52:00 No Longer Active 11/04/2014 [facility] Sodium Chloride 0.9% (titrate) 250 mL 250 mL, Rate: scallop dredger for use with blood product administration, Dosing Weight 68.182, kg, Route: IV, Total Volume: 250, Start Date: 11/03/14 20:53:00, Duration: 30 day, Stop date: 12/03/14 20:52:00, Replace Every: 24 hr No Longer Active 11/04/2014 [facility] Saline Flush 0.9% Notes: (Same as: BD Posiflush) No Longer Active 11/04/2014 [facility] Levetiracetam Notes: Same as K eppra Mix with 100 mL NS, LR or D5W MEDICATION WASTE Product Size: 500 mg Product Wasted: ___ mg No Longer Active 11/04/2014 [facility] Sodium Chloride 0.154 MEQ/ML Injectable Solution 1,000 mL, Rate: 75 ml/hr, Infuse over: 13.3 hr, Route: IV, Dosing Weight 68.182 kg, Total Volume: 1,000, Start date: 11/03/14 20:53:00, Duration: 30 day, Stop date: 12/03/14 20:52:00 No Longer Active 11/04/2014 [facility] nter Iohexol Special Instructions: Dose = 2.2ml/kg, Max dose = 100ml -- "To be infused by Radiology Staff ONLY" Inactive 11/04/2014 [facility] Saline Flush 0.9% Notes: (Same as: BD Posiflush) No Longer Active 11/04/2014 [facility] Zofran Notes: (Same as: Zofran ) MEDICATION WASTE Product Size: 4 mg Product Wasted: ___ mg Inactive 11/03/[address] [facility] Reglan Notes: (Same as: Reglan) Inactive 11/03/[address] [facility] Sodium Chloride 0.154 MEQ/ML Injectable Solution 1,000 mL, 1,000 ml/hr, Infuse Over: 1 hr, Route: IV, 1,000, Drug form: INJ, ONCE, Priority: STAT, Dosing Weight 68.182 kg, Start date: 11/03/14 16:31:00, Duration: 1 doses or times, Stop date: 11/03/14 16:31:00 Inactive 11/03/[address] [facility] Benadryl Notes: (Same as: Michelle dryl) Inactive 11/03/[address] [facility] Acetaminophen 300 MG / butalbital 50 MG / Caffeine 40 MG Oral Capsule [Fioricet] Special Instructions: Do not exceed 6 ca psules in 24 hours Active 11/02/[address] [facility] 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, 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, Drug form: INJ, ONCE, Dosing Weight 71.364, kg, Priority: STAT, Start date: 11/01/14 23:22:00, Stop date: 11/01/14 23:22:00 No Longer Active 11/02/[address] [facility] Diphenhydramine 25 mg, Route: IVP, ONCE, Dosing Weight 71.364, kg, Priority: STAT, Start date: 11/01/14 23:22:00, Stop date: 11/01/14 23:22:00 No Longer Active 11/02/[address] [facility] Sodium Chloride 0.154 MEQ/ML Injectable Solution 1,000 mL, 1,000 ml/hr, Infuse Over: 1 Hour, Route: IV, ONCE, Priority: STAT, Dosing Weight 71.364 kg, Start date: 11/01/14 23:16:00, Duration: 1 doses or times, Stop date: 11/01/14 23:16:00 N o Longer Active 11/02/[address] [facility] Dicyclomine Hydrochloride 20 MG Oral Tablet [Bentyl] 20 mg = 1 tab, PO, QID, # 28 tab, 0 Refill(s) Active 06/25/[address] [facility] Ondansetron 4 MG Disintegrating Tablet [Zofran] 4 mg = 1 tab, PO, TID, as needed for nausea/vomiting, # 12 tab, 0 Refill(s) Active 06/25/[address] [facility] Esomeprazole 40 MG Enteric Coated Capsule [Nexium] 40 mg = 1 cap, PO, Daily, # 30 cap, 0 Refill(s) Active 06/25/[address] [facility] Zofran 4 mg, Route: IVP, Drug form: INJ, ONCE, Dosing Weight 70.455, kg, Priority: STAT, Start date: 06/24/14 20:42:00, Stop date: 06/24/14 20:42:00 Inactive 06/25/[address] [facility] 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, 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, Drug 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: INJ, ONCE, Dosing Weight 70.455, kg, Priority: STAT, Start date: 06/24/14 19:28:00, Stop date: 06/24/14 19:28:00 Inactive 06/25/[address] [facility] Ondansetron 4 mg, Route: IVP, ONCE, Dosing Weight 70.455, kg, Priority: STAT, Start date: 06/24/14 19:28:00, Stop date: 06/24/14 19:28:00 Inactive 06/25/[address] [facility] Saline Flush 0.9% Notes: Same as: BD Posiflush Sterile No Longer Active 06/25/[address] [facility] Sodium Chloride 0.154 MEQ/ML Injectable Solution 1,000 mL, Infuse Over: 1 hr, Route: IV, ONCE, Priority: STAT, Dosing Weight 70.455 kg, Start date: 06/24/14 19:28:00, Duration: 1 doses or times, Stop date: 03/09/15 19:28:00 Inactive 06/25/[address] [facility] Bentyl 20 mg oral tablet 20 mg , 1 tab, PO, QID, PRN, 30 tab, abdominal pain, Substitution Allowed Active Edenilson ye 03/01/[address] [facility] morphine Sulfate 4 mg, Route: IVP, Drug form: INJ, ONCE, Dosing Weight 72.727, kg, Priority: STAT, Start date: 02/28/13 21:33:00, Stop date: 02/28/13 21:33:00 Inactive Marito 03/01/[address] [facility] ondansetron 4 mg, Route: IVP, Drug form: INJ, ONCE, Dosing Weight 72.727, kg, Priority: STAT, Start date: 02/28/13 21:33:00, Stop date: 02/28/13 21:33:00 Inactive Marito 03/01/[address] [facility] Sodium Chloride 0.9% (Bolus) IV 1000 mL 1,000 mL, Rate: 1,000 ml/hr, Infuse over: 1 hr, Route: IV, Dosing Weight 72.727 kg, Total Volume: 1,000, Priority: STAT, Start date: 02/28/13 21:33:00, Duration: 1 doses or times, Stop date: 02/28/13 22:32:00, Bolus DoseBolus Dose Inactive Marito 03/01/[address] [facility] Allergies, Adverse Reactions, Alerts Substance Category Reaction Severity Reaction type Status Date Reported Comments Source HYDROcodone-pseudoephedrine As sertion Drug aller gy Active [facility] simvastatin Assertion Drug allergy Active [facility] metFORMIN Assertion Drug allergy Active [facility] Zocor Assertion Drug allergy Active [facility] Immunizations Immunization Date Given Site Status Last Updated Comments Source pneumococcal 23-valent vaccine 11/14/2014 Left Deltoid completed Shashank [facility] Results Order Name Results Value Reference Range Date Interpretation Comments Source CARDIAC ENZYMES Total CK 140 12 - 191 09/16/[address] [facility] CARDIAC ENZYMES Troponin-I <0.02 0.00 - 0.40 09/16/[address] [facility] CHEM PANEL Glucose Lvl 271 70 - 99 09/16/[address] [facility] CHEM PANEL BUN 15 7 - 22 09/16/[address] [facility] CHEM PANEL Creatinine Lvl 0.93 0.50 - 1.40 09/16/[address] [facility] CHEM PANEL Sodium Lvl 136 135 - 145 09/16/2019 [facility] CHEM PANEL Potassium Lvl 4.6 3.5 - 5.1 09/16/2019 [facility] CHEM PANEL Chloride Lvl 98 95 - 109 09/16/2019 [facility] CHEM PANEL CO2 30 24 - 32 09/16/2019 [facility] CHEM PANEL Calcium Lvl 9.9 8.5 - 10.5 09/16/2019 [facility] CHEM PANEL Total Protein 8.5 6.4 - 8.4 09/16/2019 [facility] CHEM PANEL Albumin Lvl 3.8 3.5 - 5.0 09/16/2019 [facility] CHEM PANEL ALT 45 0 - 65 09/16/2019 [facility] CHEM PANEL AST 62 0 - 37 09/16/2019 [facility] CHEM PANEL Alk Phos 85 39 - 136 09/16/2019 [facility] CHEM PANEL Bili Total 0.2 0.2 - 1.3 09/16/2019 [facility] CHEM PANEL AGAP 12.6 10.0 - 20.0 09/16/2019 [facility] CHEM PANEL B/C Ratio 16 6 - 25 09/16/2019 [facility] CHEM PANEL Globulin 4.7 2.7 - 4.2 09/16/2019 [facility] CHEM PANEL A/G Ratio 0.8 0.7 - 1.6 09/16/2019 [facility] CHEM PANEL eGFR 103 09/16/2019 Result Comment: The eGFR is calculated using [...] should be multiplied by the estimated BMI. [facility] HEMATOLOGY WBC 6.5 3.7 - 10.4 09/16/[address] [facility] HEMATOLOGY RBC 3.99 4.70 - 6.10 09/16/[address] [facility] HEMATOLOGY Hgb 12.8 14.0 - 18.0 09/16/[address] [facility] HEMATOLOGY Hct 37.8 42.0 - 54.0 09/16/[address] [facility] HEMATOLOGY MCV 94.6 80.0 - 94.0 09/16/[address] [facility] HEMATOLOGY MCH 32.1 27.0 - 31.0 09/16/[address] [facility] HEMATOLOGY MCHC 33.9 32.0 - 36.0 09/16/[address] [facility] HEMATOLOGY RDW 13.7 11.5 - 14.5 09/16/[address] [facility] HEMATOLOGY Platelet 382 133 - 450 09/16/[address] [facility] HEMATOLOGY MPV 7.4 7.4 - 10.4 09/16/[address] [facility] HEMATOLOGY Segs 53.0 45.0 - 75.0 09/16/[address] [facility] HEMATOLOGY Lymphocytes 35.3 20.0 - 40.0 09/16/[address] [facility] HEMATOLOGY Monocytes 8.9 2.0 - 12.0 09/16/[address] [facility] HEMATOLOGY Eosinophils 2.0 0.0 - 4.0 09/16/[address] [facility] HEMATOLOGY Basophils 0.8 0.0 - 1.0 09/16/[address] [facility] HEMATOLOGY Neutrophils # 3.4 1.5 - 8.1 09/16/[address] [facility] HEMATOLOGY Lymphocytes # 2.3 1.0 - 5.5 09/16/[address] [facility] HEMATOLOGY Monocytes # 0.6 0.0 - 0.8 09/16/[address] [facility] HEMATOLOGY Eosinophils # 0.1 0.0 - 0.5 09/16/[address] [facility] HEMATOLOGY Basophils # 0.1 0.0 - 0.2 09/16/[address] [facility] CARDIAC ENZYMES Total CK 163 12 - 191 09/14/[address] [facility] CARDIAC ENZYMES Troponin-I <0.02 0.00 - 0.40 09/14/[address] [facility] CHEM PANEL Glucose Lvl 162 70 - 99 09/14/[address] [facility] CHEM PANEL BUN 11 7 - 22 09/14/[address] [facility] CHEM PANEL Creatinine Lvl 0.75 0.50 - 1.40 09/14/[address] [facility] CHEM PANEL Sodium Lvl 133 135 - 145 09/14/2019 [facility] CHEM PANEL Potassium Lvl 3.9 3.5 - 5.1 09/14/2019 [facility] CHEM PANEL Chloride Lvl 96 95 - 109 09/14/2019 [facility] CHEM PANEL CO2 32 24 - 32 09/14/2019 [facility] CHEM PANEL Calcium Lvl 9.1 8.5 - 10.5 09/14/2019 [facility] CHEM PANEL Total Protein 8.3 6.4 - 8.4 09/14/2019 [facility] CHEM PANEL Albumin Lvl 3.7 3.5 - 5.0 09/14/2019 [facility] CHEM PANEL ALT 38 0 - 65 09/14/2019 [facility] CHEM PANEL AST 39 0 - 37 09/14/2019 [facility] CHEM PANEL Alk Phos 83 39 - 136 09/14/2019 [facility] CHEM PANEL Bili Total 0.1 0.2 - 1.3 09/14/2019 [facility] CHEM PANEL AGAP 8.9 10.0 - 20.0 09/14/2019 [facility] CHEM PANEL B/C Ratio 15 6 - 25 09/14/2019 [facility] CHEM PANEL Globulin 4.6 2.7 - 4.2 09/14/2019 [facility] CHEM PANEL A/G Ratio 0.8 0.7 - 1.6 09/14/2019 [facility] CHEM PANEL eGFR 117 09/14/2019 Result Comment: The eGFR is calculated using [...] should be multiplied by the estimated BMI. [facility] CHEM PANEL Lactic Acid Lvl 1.7 0.5 - 2.2 09/14/[address] [facility] DRUG SCREEN U Amph Scr Nega tive *NA* (09/13/19 10:59 PM) Negative 09/14/[address] [facility] DRUG SCREEN U Raisa Scr Nega tive *NA* (09/13/19 10:59 PM) Negative 09/14/2019 [facility] DRUG SCREEN U Benzodiaz Scr Nega tive *NA* (09/13/19 10:59 PM) Negative 09/14/2019 [facility] DRUG SCREEN U Cocaine Scr Nega tive *NA* (09/13/19 10:59 PM) Negative 09/14/2019 [facility] DRUG SCREEN U Cannab Scr Nega tive *NA* (09/13/19 10:59 PM) Negative 09/14/2019 [facility] DRUG SCREEN U Opiate Scr Nega tive *NA* (09/13/19 10:59 PM) Negative 09/14/2019 [facility] DRUG SCREEN U Phencyclidine Scr Nega tive *NA* (09/13/19 10:59 PM) Negative 09/14/2019 [facility] DRUG SCREEN UDS Note See Note (09/13/19 10:59 PM) 09/14/2019 [facility] HEMATOLOGY WBC 8.2 3.7 - 10.4 09/14/[address] [facility] HEMATOLOGY RBC 3.89 4.70 - 6.10 09/14/[address] [facility] HEMATOLOGY Hgb 12.5 14.0 - 18.0 09/14/[address] [facility] HEMATOLOGY Hct 36.6 42.0 - 54.0 09/14/[address] [facility] HEMATOLOGY MCV 94.1 80.0 - 94.0 09/14/[address] [facility] HEMATOLOGY MCH 32.1 27.0 - 31.0 09/14/2019 [facility] HEMATOLOGY MCHC 34.1 32.0 - 36.0 09/14/2019 [facility] HEMATOLOGY RDW 13.3 11.5 - 14.5 09/14/[address] [facility] HEMATOLOGY Platelet 386 133 - 450 09/14/2019 [facility] HEMATOLOGY MPV 7.3 7.4 - 10.4 09/14/2019 [facility] HEMATOLOGY Segs 49.3 45.0 - 75.0 09/14/2019 [facility] HEMATOLOGY Lymphocytes 38.5 20.0 - 40.0 09/14/2019 [facility] HEMATOLOGY Monocytes 10.0 2.0 - 12.0 09/14/2019 [facility] HEMATOLOGY Eosinophils 1.6 0.0 - 4.0 09/14/2019 [facility] HEMATOLOGY Basophils 0.6 0.0 - 1.0 09/14/2019 [facility] HEMATOLOGY Neutrophils # 4.0 1.5 - 8.1 09/14/2019 [facility] HEMATOLOGY Lymphocytes # 3.1 1.0 - 5.5 09/14/[address] [facility] HEMATOLOGY Monocytes # 0.8 0.0 - 0.8 09/14/[address] [facility] HEMATOLOGY Eosinophils # 0.1 0.0 - 0.5 09/14/[address] [facility] HEMATOLOGY Basophils # 0.1 0.0 - 0.2 09/14/[address] [facility] URINE AND STOOL UA Turbidity Clear (09/13/19 10:59 PM) Clear 09/14/2019 [facility] URINE AND STOOL UA Spec Grav 1.009 <=1.030 09/14/[address] [facility] URINE AND STOOL UA pH 7.0 5.0 - 8.0 09/14/[address] [facility] URINE AND STOOL UA Protein Negative mg/dL Negative mg/dL 09/14/2019 [facility] URINE AND STOOL UA Glucose 500 mg/dL Negative mg/dL 09/14/[address] [facility] URINE AND STOOL UA Ketones Trace mg/dL Negative mg/dL 09/14/2019 [facility] URINE AND STOOL UA Bili Negative *NA* (09/13/19 10:59 PM) Negative 09/14/[address] [facility] URINE AND STOOL UA Blood Negative (09/13/19 10:59 PM) Negative 09/14/[address] [facility] URINE AND STOOL UA Nitrite Negative (09/13/19 10:59 PM) Negative 09/14/[address] [facility] URINE AND STOOL UA Leuk Est Negative (09/13/19 10:59 PM) Negative 09/14/[address] [facility] URINE AND STOOL UA WBC 1 0 - 5 09/14/[address] [facility] URINE AND STOOL UA RBC <1 0 - 2 09/14/[address] [facility] URINE AND STOOL UA Bacteria Occasional /HPF None Seen /HPF 09/14/2019 [facility] URINE AND STOOL UA Mucus Few /LPF None Seen /LPF 09/14/2019 [facility] URINE AND STOOL UA Sq Epi None Seen 09/14/[address] [facility] URINE AND STOOL UA Color Ltyellow 09/14/[address] [facility] URINE AND STOOL UA Urobilinogen <=1.0 mg/dL 0.1 - 1.0 09/14/2019 [facility] HEMATOLOGY PTT 32.0 22.9 - 35.8 05/02/[address] [facility] HEMATOLOGY PT 13.5 12.0 - 14.7 05/02/[address] [facility] HEMATOLOGY INR 1.05 0.85 - 1.17 05/02/2018 [facility] WBC 8.0 3.7 - 10.4 05/02/2018 [facility] Platelet 388 133 - 450 05/02/2018 [facility] MPV 7.6 7.4 - 10.4 05/02/2018 [facility] Hct 37.4 42.0 - 54.0 05/02/2018 [facility] RBC 4.12 4.70 - 6.10 05/02/2018 [facility] Hgb 13.2 14.0 - 18.0 05/02/2018 [facility] MCH 32.0 27.0 - 31.0 05/02/2018 [facility] MCV 90.8 80.0 - 94.0 05/02/2018 [facility] RDW 15.2 11.5 - 14.5 05/02/2018 [facility] MCHC 35.2 32.0 - 36.0 05/02/2018 [facility] Basophils 2.3 0.0 - 1.0 05/02/2018 [facility] Monocytes 8.2 2.0 - 12.0 05/02/[address] [facility] HEMATOLOGY Eosinophils 1.8 0.0 - 4.0 05/02/2018 [facility] Monocytes # 0.7 0.0 - 0.8 05/02/2018 [facility] Lymphocytes # 2.0 1.0 - 5.5 05/02/2018 [facility] Neutrophils # 5.0 1.5 - 8.1 05/02/2018 [facility] Lymphocytes 25.3 20.0 - 40.0 05/02/2018 [facility] Segs 62.4 45.0 - 75.0 05/02/2018 [facility] Basophils # 0.2 0.0 - 0.2 05/02/2018 [facility] Eosinophils # 0.1 0.0 - 0.5 05/02/[address] [facility] CARDIAC ENZYMES Troponin-I <0.02 0.00 - 0.40 05/02/[address] [facility] CARDIAC ENZYMES BNP 20 <=100 pg/mL 05/02/[address] [facility] CHEM PANEL eGFR 102 05/02/2018 Result Comment: The eGFR is calculated using [...] should be multiplied by the estimated BMI. [facility] CHEM PANEL BUN 16 7 - 22 05/02/[address] [facility] CHEM PANEL Glucose Lvl 256 70 - 99 05/02/[address] [facility] CHEM PANEL Total Protein 8.3 6.4 - 8.4 05/02/[address] [facility] CHEM PANEL Albumin Lvl 3.9 3.5 - 5.0 05/02/[address] [facility] CHEM PANEL ALT 58 0 - 65 05/02/[address] [facility] CHEM PANEL Creatinine Lvl 0.95 0.50 - 1.40 05/02/[address] [facility] CHEM PANEL Sodium Lvl 138 135 - 145 05/02/[address] [facility] CHEM PANEL Potassium Lvl 4.6 3.5 - 5.1 05/02/[address] [facility] CHEM PANEL Chloride Lvl 101 95 - 109 05/02/[address] [facility] CHEM PANEL Calcium Lvl 9.3 8.5 - 10.5 05/02/[address] [facility] CHEM PANEL CO2 29 24 - 32 05/02/[address] [facility] CHEM PANEL AST 72 0 - 37 05/02/[address] [facility] CHEM PANEL Alk Phos 70 39 - 136 05/02/[address] [facility] CHEM PANEL Bili Total 0.4 0.2 - 1.3 05/02/[address] [facility] CHEM PANEL A/G Ratio 0.9 0.7 - 1.6 05/02/[address] [facility] CHEM PANEL AGAP 12.6 10.0 - 20.0 05/02/[address] [facility] CHEM PANEL B/C Ratio 17 6 - 25 05/02/[address] [facility] CHEM PANEL Globulin 4.4 2.7 - 4.2 05/02/[address] [facility] URINE AND STOOL UA Glucose >=1000 mg/dL Negative mg/dL 05/02/2018 [facility] URINE AND STOOL UA Ketones 15 *ABN* (05/02/18 10:47 AM) Negative 05/02/[address] [facility] URINE AND STOOL UA Mucus Few /LPF None Seen /LPF 05/02/[address] [facility] URINE AND STOOL UA WBC 0-2 /HPF 0 - 5 05/02/[address] [facility] URINE AND STOOL UA RBC None Seen (05/02/18 10:47 AM) 0 - 2 05/02/[address] [facility] URINE AND STOOL UA Bacteria None Seen (05/02/18 10:47 AM) None Seen 05/02/2018 [facility] URINE AND STOOL UA Leuk Est Negative (05/02/18 10:47 AM) Negative 05/02/2018 [facility] URINE AND STOOL UA Sq Epi Occasional /LPF Few /LPF 05/02/[address] [facility] URINE AND STOOL UA Nitrite Negative (05/02/18 10:47 AM) Negative 05/02/[address] [facility] URINE AND STOOL UA Urobilinogen 0.2 0.1 - 1.0 05/02/[address] [facility] URINE AND STOOL UA Blood Negative (05/02/18 10:47 AM) Negative 05/02/[address] [facility] URINE AND STOOL UA Bili Negative *NA* (05/02/18 10:47 AM) Negative 05/02/[address] [facility] URINE AND STOOL UA Protein Negative (05/02/18 10:47 AM) Negative 05/02/[address] [facility] URINE AND STOOL UA pH 5.5 5.0 - 8.0 05/02/[address] [facility] URINE AND STOOL UA Spec Grav 1.020 <=1.030 05/02/[address] [facility] URINE AND STOOL UA Turbidity Clear (05/02/18 10:47 AM) Clear 05/02/[address] [facility] URINE AND STOOL UA Color Yellow *NA* (05/02/18 10:47 AM) Yellow 05/02/[address] [facility] URINE AND STOOL Micro? Performed (07/07/15 7:22 AM) 07/07/2015 [facility] URINE AND STOOL UA Sq Epi Occasional /LPF Few /LPF 07/07/2015 [facility] URINE AND STOOL UA Leuk Est Negative (07/07/15 7:22 AM) Negative 07/07/2015 [facility] URINE AND STOOL UA Glucose Negative mg/dL Negative mg/dL 07/07/2015 [facility] URINE AND STOOL UA pH 7.5 5.0 - 8.0 07/07/2015 [facility] URINE AND STOOL UA Spec Grav 1.015 <=1.030 07/07/2015 [facility] URINE AND STOOL UA Color Yellow *NA* (07/07/15 7:22 AM) Yellow 07/07/2015 [facility] URINE AND STOOL UA Turbidity Clear (07/07/15 7:22 AM) Clear 07/07/2015 [facility] URINE AND STOOL UA Nitrite Negative (07/07/15 7:22 AM) Negative 07/07/2015 [facility] URINE AND STOOL UA Blood Negative (07/07/15 7:22 AM) Negative 07/07/2015 [facility] URINE AND STOOL UA Urobilinogen 0.2 0.1 - 1.0 07/07/2015 [facility] URINE AND STOOL UA Bili Negative *NA* (07/07/15 7:22 AM) Negative 07/07/2015 [facility] URINE AND STOOL UA Ketones Negative mg/dL Negative mg/dL 07/07/2015 [facility] URINE AND STOOL UA Protein Negative mg/dL Negative mg/dL 07/07/2015 [facility] CHEM PANEL A/G Ratio 0.9 0.7 - 1.6 07/07/2015 [facility] CHEM PANEL AST 90 0 - 37 07/07/2015 [facility] CHEM PANEL Globulin 4.0 2.0 - 4.0 07/07/2015 [facility] CHEM PANEL ALT 89 0 - 65 07/07/2015 [facility] CHEM PANEL Alk Phos 62 39 - 136 07/07/2015 [facility] CHEM PANEL Total Protein 7.7 6.4 - 8.4 07/07/2015 [facility] CHEM PANEL Albumin Lvl 3.7 3.5 - 5.0 07/07/2015 [facility] CHEM PANEL Bili Indirect 0.2 0.0 - 1.0 07/07/2015 [facility] CHEM PANEL Bili Total 0.3 0.2 - 1.3 07/07/2015 [facility] CHEM PANEL Bili Direct 0.1 0.0 - 0.3 07/07/2015 [facility] CHEM PANEL eGFR 130 07/07/2015 Result Comment: The eGFR is calculated using [...] should be multiplied by the estimated BMI. [facility] CHEM PANEL BUN 6 7 - 22 07/07/2015 [facility] CHEM PANEL Creatinine Lvl 0.63 0.50 - 1.40 07/07/2015 [facility] CHEM PANEL Glucose Lvl 101 70 - 99 07/07/2015 [facility] CHEM PANEL Sodium Lvl 132 135 - 145 07/07/2015 [facility] CHEM PANEL Potassium Lvl 3.9 3.5 - 5.1 07/07/2015 [facility] CHEM PANEL Calcium Lvl 8.9 8.5 - 10.5 07/07/2015 [facility] CHEM PANEL Chloride Lvl 96 95 - 109 07/07/2015 [facility] CHEM PANEL CO2 30 24 - 32 07/07/2015 [facility] CHEM PANEL AGAP 9.9 10.0 - 20.0 07/07/2015 [facility] CHEM PANEL Lipase Lvl 136 73 - 393 07/07/2015 [facility] HEMATOLOGY WBC 6.8 3.7 - 10.4 07/07/2015 [facility] HEMATOLOGY Hgb 12.7 14.0 - 18.0 07/07/[address] [facility] MCH 31.4 27.0 - 31.0 07/07/2015 [facility] HEMATOLOGY Hct 38.4 42.0 - 54.0 07/07/2015 [facility] HEMATOLOGY RBC 4.04 4.70 - 6.10 07/07/2015 [facility] HEMATOLOGY MCV 95.0 80.0 - 94.0 07/07/2015 [facility] HEMATOLOGY MPV 7.0 7.4 - 10.4 07/07/[address] [facility] Platelet 342 133 - 450 07/07/2015 [facility] HEMATOLOGY RDW 14.1 11.5 - 14.5 07/07/[address] [facility] MCHC 33.1 32.0 - 36.0 07/07/2015 [facility] HEMATOLOGY Monocytes 9.5 2.0 - 12.0 07/07/[address] [facility] Lymphocytes 41.7 20.0 - 40.0 07/07/2015 [facility] HEMATOLOGY Lymphocytes # 2.8 1.0 - 5.5 07/07/2015 [facility] HEMATOLOGY Eosinophils 3.1 0.0 - 4.0 07/07/2015 [facility] HEMATOLOGY Segs 44.4 45.0 - 75.0 07/07/2015 [facility] HEMATOLOGY Basophils # 0.1 0.0 - 0.2 07/07/2015 [facility] HEMATOLOGY Eosinophils # 0.2 0.0 - 0.5 07/07/2015 [facility] HEMATOLOGY Basophils 1.3 0.0 - 1.0 07/07/2015 [facility] HEMATOLOGY Monocytes # 0.6 0.0 - 0.8 07/07/2015 [facility] HEMATOLOGY Segs-Bands # 3.0 1.5 - 8.1 07/07/2015 [facility] DRUG SCREEN UDS Note See Note *NA* (01/16/15 11:05 PM) 01/17/2015 [facility] DRUG SCREEN U Phencyc Scr Nega tive *NA* (01/16/15 11:05 PM) Negative 01/17/2015 [facility] DRUG SCREEN U Cocaine Scr Nega tive *NA* (01/16/15 11:05 PM) Negative 01/17/2015 [facility] DRUG SCREEN U Cannab Scr Nega tive *NA* (01/16/15 11:05 PM) Negative 01/17/2015 [facility] DRUG SCREEN U Opiate Scr Nega tive *NA* (01/16/15 11:05 PM) Negative 01/17/2015 [facility] DRUG SCREEN U Amph Scr Nega tive *NA* (01/16/15 11:05 PM) Negative 01/17/2015 [facility] DRUG SCREEN U Benzodia Scr Nega tive *NA* (01/16/15 11:05 PM) Negative 01/17/2015 [facility] DRUG SCREEN U Raisa Scr Nega tive *NA* (01/16/15 11:05 PM) Negative 01/17/2015 [facility] ELECTROLYTES AGAP 15.7 10.0 - 20.0 01/17/2015 [facility] ELECTROLYTES B/C Ratio 13 6 - 25 01/17/2015 [facility] ELECTROLYTES Globulin 4.5 2.0 - 4.0 01/17/2015 [facility] ELECTROLYTES A/G Ratio 0.8 0.7 - 1.6 01/17/2015 [facility] ELECTROLYTES eGFR 124 01/17/2015 Result Comment: The eGFR is calculated using [...] should be multiplied by the estimated BMI. [facility] ELECTROLYTES Glucose Lvl 90 70 - 99 01/17/2015 [facility] ELECTROLYTES Calcium Lvl 9.0 8.5 - 10.5 01/17/2015 [facility] ELECTROLYTES Potassium Lvl 4.7 3.5 - 5.1 01/17/2015 [facility] ELECTROLYTES BUN 9 7 - 22 01/17/2015 [facility] ELECTROLYTES CO2 26 24 - 32 01/17/2015 [facility] ELECTROLYTES Sodium Lvl 130 135 - 145 01/17/2015 [facility] ELECTROLYTES Creatinine Lvl 0.7 0.5 - 1.4 01/17/2015 [facility] ELECTROLYTES Chloride Lvl 93 95 - 109 01/17/2015 [facility] ELECTROLYTES AST 62 0 - 37 01/17/2015 [facility] ELECTROLYTES Alk Phos 76 39 - 136 01/17/2015 [facility] ELECTROLYTES Bili Total 0.4 0.2 - 1.3 01/17/2015 [facility] ELECTROLYTES ALT 66 0 - 65 01/17/2015 [facility] ELECTROLYTES Total Protein 8.3 6.4 - 8.4 01/17/2015 [facility] ELECTROLYTES Albumin Lvl 3.8 3.5 - 5.0 01/17/2015 [facility] HEMATOLOGY Basophils # 0.1 0.0 - 0.2 01/17/2015 [facility] HEMATOLOGY Eosinophils # 0.2 0.0 - 0.5 01/17/2015 [facility] HEMATOLOGY Monocytes # 0.8 0.0 - 0.8 01/17/2015 [facility] HEMATOLOGY Lymphocytes 33.4 20.0 - 40.0 01/17/2015 [facility] HEMATOLOGY Segs 54.2 45.0 - 75.0 01/17/2015 [facility] HEMATOLOGY Segs-Bands # 4.7 1.5 - 8.1 01/17/2015 [facility] HEMATOLOGY Lymphocytes # 2.9 1.0 - 5.5 01/17/2015 [facility] HEMATOLOGY Eosinophils 1.9 0.0 - 4.0 01/17/2015 [facility] HEMATOLOGY Basophils 1.0 0.0 - 1.0 01/17/2015 [facility] HEMATOLOGY Monocytes 9.5 2.0 - 12.0 01/17/2015 [facility] HEMATOLOGY RBC 4.22 4.70 - 6.10 01/17/2015 [facility] HEMATOLOGY WBC 8.7 3.7 - 10.4 01/17/2015 [facility] HEMATOLOGY Hct 38.7 42.0 - 54.0 01/17/2015 [facility] HEMATOLOGY Hgb 13.2 14.0 - 18.0 01/17/2015 [facility] HEMATOLOGY MCHC 34.0 32.0 - 36.0 01/17/2015 [facility] HEMATOLOGY MCV 91.7 80.0 - 94.0 01/17/2015 [facility] HEMATOLOGY MCH 31.2 27.0 - 31.0 01/17/2015 [facility] HEMATOLOGY RDW 13.2 11.5 - 14.5 01/17/2015 [facility] HEMATOLOGY Platelet 335 133 - 450 01/17/2015 [facility] HEMATOLOGY MPV 7.1 7.4 - 10.4 01/17/2015 [facility] TOXICOLOGY Digoxin Lvl 0.6 0.8 - 2.0 01/17/2015 [facility] TOXICOLOGY Acetaminoph Lvl <2 (01/16/15 10:36 PM) 10 - 20 01/17/2015 [facility] TOXICOLOGY Etoh (%) <0.003 01/17/2015 [facility] TOXICOLOGY Ethanol Lvl <3 01/17/2015 [facility] TOXICOLOGY Salicylate Lvl 1.6 0.0 - 30.0 01/17/2015 [facility] BLOOD BANK RESULTS ABO/Rh O POS 11/23/2014 [facility] BLOOD BANK RESULTS Antibody Scrn Negative (11/22/14 10:36 PM) 11/23/2014 [facility] CHEM PANEL Procalcitonin Lvl 0.05 0.00 - 0.10 11/23/2014 [facility] CHEM PANEL eGFR 117 11/23/2014 Result Comment: The eGFR is calculated [...] should be multiplied by the estimated BMI. [facility] CHEM PANEL Potassium Lvl 5.0 3.5 - 5.1 11/23/2014 [facility] CHEM PANEL Sodium Lvl 138 135 - 145 11/23/2014 [facility] CHEM PANEL Chloride Lvl 104 95 - 109 11/23/2014 [facility] CHEM PANEL Total Protein 8.0 6.4 - 8.4 11/23/2014 [facility] CHEM PANEL Calcium Lvl 9.3 8.5 - 10.5 11/23/2014 [facility] CHEM PANEL Albumin Lvl 3.4 3.5 - 5.0 11/23/2014 [facility] CHEM PANEL ALT 78 0 - 65 11/23/2014 [facility] CHEM PANEL CO2 29 24 - 32 11/23/2014 [facility] CHEM PANEL Globulin 4.6 2.0 - 4.0 11/23/2014 [facility] CHEM PANEL A/G Ratio 0.7 0.7 - 1.6 11/23/2014 [facility] CHEM PANEL B/C Ratio 11 6 - 25 11/23/2014 [facility] CHEM PANEL AGAP 10.0 10.0 - 20.0 11/23/2014 [facility] CHEM PANEL Alk Phos 111 39 - 136 11/23/2014 [facility] CHEM PANEL AST 73 0 - 37 11/23/2014 [facility] CHEM PANEL Bili Total 0.4 0.2 - 1.3 11/23/2014 [facility] CHEM PANEL Creatinine Lvl 0.8 0.5 - 1.4 11/23/2014 [facility] CHEM PANEL BUN 9 7 - 22 11/23/2014 [facility] CHEM PANEL Glucose Lvl 82 70 - 99 11/23/2014 [facility] HEMATOLOGY Sed Rate 54 0 - 15 11/23/2014 [facility] HEMATOLOGY MPV 6.6 7.4 - 10.4 11/23/2014 [facility] HEMATOLOGY RDW 13.1 11.5 - 14.5 11/23/2014 [facility] HEMATOLOGY Platelet 423 133 - 450 11/23/2014 [facility] HEMATOLOGY MCV 95.9 80.0 - 94.0 11/23/2014 [facility] HEMATOLOGY MCHC 33.4 32.0 - 36.0 11/23/2014 [facility] HEMATOLOGY MCH 32.1 27.0 - 31.0 11/23/2014 [facility] HEMATOLOGY Hct 37.4 42.0 - 54.0 11/23/2014 [facility] HEMATOLOGY Hgb 12.5 14.0 - 18.0 11/23/2014 [facility] HEMATOLOGY RBC 3.90 4.70 - 6.10 11/23/2014 [facility] HEMATOLOGY WBC 9.6 3.7 - 10.4 11/23/2014 [facility] HEMATOLOGY Eosinophils # 0.3 0.0 - 0.5 11/23/2014 [facility] HEMATOLOGY Basophils # 0.1 0.0 - 0.2 11/23/2014 [facility] HEMATOLOGY Lymphocytes # 3.0 1.0 - 5.5 11/23/2014 [facility] HEMATOLOGY Monocytes # 1.1 0.0 - 0.8 11/23/2014 [facility] HEMATOLOGY Segs-Bands # 5.2 1.5 - 8.1 11/23/2014 [facility] HEMATOLOGY Basophils 1.0 0.0 - 1.0 11/23/2014 [facility] HEMATOLOGY Monocytes 11.3 2.0 - 12.0 11/23/2014 [facility] HEMATOLOGY Lymphocytes 30.8 20.0 - 40.0 11/23/2014 [facility] HEMATOLOGY Eosinophils 3.2 0.0 - 4.0 11/23/2014 [facility] HEMATOLOGY Segs 53.7 45.0 - 75.0 11/23/2014 [facility] IMMUNOLOGY C-REACTIVE PROTEIN 3.1 <=2.9 mg/L 11/23/2014 [facility] HEMATOLOGY G-value 10.8 5.0 - 11.6 11/22/2014 [facility] HEMATOLOGY Estimated % Lysis 5.7 0.0 - 7.5 11/22/2014 Result Comment: "Significant Findings ca lled to Graeme [email or web address]_at 11/22/2014 17:46__by ct__.Read Back OK." [facility] HEMATOLOGY Max Amp 68 52 - 71 11/22/2014 [facility] HEMATOLOGY K-time 0.8 0.6 - 2.3 11/22/2014 [facility] HEMATOLOGY Angle 81 64 - 80 11/22/2014 [facility] HEMATOLOGY R-time 0.6 0.4 - 0.7 11/22/2014 [facility] HEMATOLOGY Split Point 0.5 11/22/2014 [facility] HEMATOLOGY Rapid TEG Sample Type Cit rated Whole Blood (11/22/14 4:52 PM) 11/22/2014 [facility] HEMATOLOGY ACT (TEG) 105 86 - 118 11/22/2014 [facility] HEMATOLOGY PT 13.2 12.0 - 14.7 11/22/2014 [facility] HEMATOLOGY INR 1.00 0.85 - 1.17 11/22/2014 [facility] HEMATOLOGY PTT 34.9 22.9 - 35.8 11/22/2014 [facility] ELECTROLYTES Sodium Lvl 142 135 - 145 11/15/2014 [facility] CHEM PANEL Magnesium Lvl 2.1 1.8 - 2.4 11/13/2014 [facility] CHEM PANEL Phosphorus 3.4 2.5 - 4.5 11/13/2014 [facility] ELECTROLYTES AGAP 13.3 10.0 - 20.0 11/13/2014 [facility] ELECTROLYTES eGFR 117 11/13/2014 Result Comment: The eGFR is calculated [...] should be multiplied by the estimated BMI. [facility] ELECTROLYTES Calcium Lvl 8.3 8.5 - 10.5 11/13/2014 [facility] ELECTROLYTES CO2 27 24 - 32 11/13/2014 [facility] ELECTROLYTES Chloride Lvl 99 95 - 109 11/13/2014 [facility] ELECTROLYTES BUN 14 7 - 22 11/13/2014 [facility] ELECTROLYTES Sodium Lvl 135 135 - 145 11/13/2014 [facility] ELECTROLYTES Potassium Lvl 4.3 3.5 - 5.1 11/13/2014 [facility] ELECTROLYTES Glucose Lvl 93 70 - 99 11/13/2014 [facility] ELECTROLYTES Creatinine Lvl 0.8 0.5 - 1.4 11/13/2014 [facility] HEMATOLOGY WBC 9.4 3.7 - 10.4 11/13/2014 [facility] HEMATOLOGY RBC 4.03 4.70 - 6.10 11/13/2014 [facility] HEMATOLOGY Hgb 13.3 14.0 - 18.0 11/13/2014 [facility] HEMATOLOGY Platelet 342 133 - 450 11/13/2014 [facility] HEMATOLOGY RDW 12.9 11.5 - 14.5 11/13/2014 [facility] HEMATOLOGY MCHC 34.0 32.0 - 36.0 11/13/2014 [facility] HEMATOLOGY Hct 39.2 42.0 - 54.0 11/13/2014 [facility] HEMATOLOGY MCH 33.0 27.0 - 31.0 11/13/2014 [facility] HEMATOLOGY MCV 97.2 80.0 - 94.0 11/13/2014 [facility] HEMATOLOGY MPV 6.9 7.4 - 10.4 11/13/2014 [facility] HEMATOLOGY Basophils # 0.1 0.0 - 0.2 11/13/2014 [facility] HEMATOLOGY Eosinophils # 0.1 0.0 - 0.5 11/13/2014 [facility] HEMATOLOGY Segs-Bands # 6.4 1.5 - 8.1 11/13/2014 [facility] HEMATOLOGY Lymphocytes # 1.6 1.0 - 5.5 11/13/2014 [facility] HEMATOLOGY Monocytes # 1.2 0.0 - 0.8 11/13/2014 [facility] HEMATOLOGY Segs 67.7 45.0 - 75.0 11/13/2014 [facility] HEMATOLOGY Lymphocytes 17.2 20.0 - 40.0 11/13/2014 [facility] HEMATOLOGY Basophils 0.7 0.0 - 1.0 11/13/2014 [facility] HEMATOLOGY Monocytes 13.1 2.0 - 12.0 11/13/2014 [facility] HEMATOLOGY Eosinophils 1.3 0.0 - 4.0 11/13/2014 [facility] CHEM PANEL Osmolality 265 280 - 300 11/12/2014 [facility] CHEM PANEL Phosphorus 3.6 2.5 - 4.5 11/12/2014 [facility] CHEM PANEL Magnesium Lvl 1.6 1.8 - 2.4 11/12/2014 [facility] ELECTROLYTES eGFR 117 11/12/2014 Result Comment: The eGFR is calculated [...] should be multiplied by the estimated BMI. [facility] HEMATOLOGY INR 1.07 0.85 - 1.17 11/12/2014 [facility] HEMATOLOGY PT 13.9 12.0 - 14.7 11/12/2014 [facility] TOXICOLOGY Valproic Acid Lvl 54 50 - 100 11/12/2014 [facility] URINE CHEM U Sodium 124 11/12/2014 [facility] URINE CHEM U Osmolality 679 300 - 800 11/12/2014 [facility] BACTERIAL - SEROLOGY MRSA by PCR Negative (11/12/14 12:50 AM) 11/12/2014 [facility] ELECTROLYTES Potassium Lvl 4.1 3.5 - 5.1 11/12/2014 [facility] ELECTROLYTES Chloride Lvl 96 95 - 109 11/12/2014 [facility] ELECTROLYTES Sodium Lvl 128 135 - 145 11/12/2014 [facility] ELECTROLYTES Creatinine Lvl 0.8 0.5 - 1.4 11/12/2014 [facility] ELECTROLYTES BUN 12 7 - 22 11/12/2014 [facility] ELECTROLYTES AGAP 12.1 10.0 - 20.0 11/12/2014 [facility] ELECTROLYTES Calcium Lvl 8.5 8.5 - 10.5 11/12/2014 [facility] ELECTROLYTES CO2 24 24 - 32 11/12/2014 [facility] ELECTROLYTES Glucose Lvl 94 70 - 99 11/12/2014 [facility] HEMATOLOGY Segs 77.4 45.0 - 75.0 11/12/2014 [facility] HEMATOLOGY Monocytes # 1.0 0.0 - 0.8 11/12/2014 [facility] HEMATOLOGY Lymphocytes # 1.0 1.0 - 5.5 11/12/2014 [facility] HEMATOLOGY Basophils 0.4 0.0 - 1.0 11/12/2014 [facility] HEMATOLOGY Monocytes 10.7 2.0 - 12.0 11/12/2014 [facility] HEMATOLOGY Segs-Bands # 7.1 1.5 - 8.1 11/12/2014 [facility] HEMATOLOGY Eosinophils 0.4 0.0 - 4.0 11/12/2014 [facility] HEMATOLOGY Lymphocytes 11.1 20.0 - 40.0 11/12/2014 [facility] HEMATOLOGY PTT 36.0 22.9 - 35.8 11/12/2014 [facility] HEMATOLOGY Hgb 13.2 14.0 - 18.0 11/12/2014 [facility] HEMATOLOGY RBC 3.96 4.70 - 6.10 11/12/2014 [facility] HEMATOLOGY WBC 9.2 3.7 - 10.4 11/12/2014 [facility] HEMATOLOGY MPV 6.9 7.4 - 10.4 11/12/2014 [facility] HEMATOLOGY Platelet 330 133 - 450 11/12/2014 [facility] HEMATOLOGY RDW 13.1 11.5 - 14.5 11/12/2014 [facility] HEMATOLOGY MCHC 35.4 32.0 - 36.0 11/12/2014 [facility] HEMATOLOGY MCV 94.6 80.0 - 94.0 11/12/2014 [facility] HEMATOLOGY Hct 37.5 42.0 - 54.0 11/12/2014 [facility] HEMATOLOGY MCH 33.4 27.0 - 31.0 11/12/2014 [facility] PARATHYROID PROFILE Ca Norm WB 1.16 1.05 - 1.25 11/12/2014 [facility] PARATHYROID PROFILE Ca Ion WB 1.19 1.05 - 1.25 11/12/2014 [facility] CHEM PANEL eGFR 132 11/11/2014 Result Comment: The eGFR is calculated [...] should be multiplied by the estimated BMI. [facility] CHEM PANEL Glucose Lvl 115 70 - 99 11/11/2014 [facility] CHEM PANEL BUN 10 7 - 22 11/11/2014 [facility] CHEM PANEL CO2 25 24 - 32 11/11/2014 [facility] CHEM PANEL AGAP 11.6 10.0 - 20.0 11/11/2014 [facility] CHEM PANEL Calcium Lvl 8.1 8.5 - 10.5 11/11/2014 [facility] CHEM PANEL Potassium Lvl 3.6 3.5 - 5.1 11/11/2014 [facility] CHEM PANEL Creatinine Lvl 0.6 0.5 - 1.4 11/11/2014 [facility] CHEM PANEL Chloride Lvl 95 95 - 109 11/11/2014 [facility] CHEM PANEL Osmolality 265 280 - 300 11/11/2014 [facility] CHEM PANEL Aldosterone 3 11/11/2014 Result Comment:
Adult Reference Ranges for Aldosterone,
LC/MS/MS:

Upright 8:00-10:00 am < or = 28 ng/dL
Upright 4:00-6:00 pm < or = 21 ng/dL
Supine 8:00-10:00 am 3-16 ng/dL
Test Performed at:
[facility]
[id number] [facility] [place] [address] Charlette Campbell MD, PhD [facility] CHEM PANEL LDH 265 98 - 192 11/11/2014 [facility] CHEM PANEL Procalcitonin Lvl 0.15 0.00 - 0.10 11/11/2014 [facility] ENDOCRINOLOGY Cortisol 14.2 11/11/2014 [facility] PARATHYROID PROFILE Ca Norm WB 1.08 1.05 - 1.25 11/11/2014 [facility] PARATHYROID PROFILE Ca Ion WB 1.08 1.05 - 1.25 11/11/2014 [facility] THYROID PANEL TSH 3.010 0.360 - 3.740 11/11/2014 [facility] TOXICOLOGY Phenytoin Free <0.10 ug/ml 1.00 - 2.00 11/11/2014 [facility] CARDIAC ENZYMES Troponin-I <0.02 0.00 - 0.40 11/11/2014 [facility] CHEM PANEL Phosphorus 3.5 2.5 - 4.5 11/11/2014 [facility] CHEM PANEL Magnesium Lvl 1.7 1.8 - 2.4 11/11/2014 [facility] CHEM PANEL B/C Ratio 18 6 - 25 11/11/2014 [facility] CHEM PANEL A/G Ratio 0.8 0.7 - 1.6 11/11/2014 [facility] CHEM PANEL Globulin 4.8 2.0 - 4.0 11/11/2014 [facility] CHEM PANEL Albumin Lvl 3.7 3.5 - 5.0 11/11/2014 [facility] CHEM PANEL AST 80 0 - 37 11/11/2014 [facility] CHEM PANEL Alk Phos 64 39 - 136 11/11/2014 [facility] CHEM PANEL Bili Total 0.6 0.2 - 1.3 11/11/2014 [facility] CHEM PANEL ALT 59 0 - 65 11/11/2014 [facility] CHEM PANEL Total Protein 8.5 6.4 - 8.4 11/11/2014 [facility] HEMATOLOGY Platelet 358 133 - 450 11/11/2014 [facility] HEMATOLOGY MPV 6.8 7.4 - 10.4 11/11/2014 [facility] HEMATOLOGY RBC 4.18 4.70 - 6.10 11/11/2014 [facility] HEMATOLOGY MCHC 33.9 32.0 - 36.0 11/11/2014 [facility] HEMATOLOGY Hgb 13.5 14.0 - 18.0 11/11/2014 [facility] HEMATOLOGY Hct 39.8 42.0 - 54.0 11/11/2014 [facility] HEMATOLOGY MCH 32.2 27.0 - 31.0 11/11/2014 [facility] HEMATOLOGY MCV 95.1 80.0 - 94.0 11/11/2014 [facility] HEMATOLOGY RDW 13.0 11.5 - 14.5 11/11/2014 [facility] HEMATOLOGY WBC 10.5 3.7 - 10.4 11/11/2014 [facility] HEMATOLOGY PTT 34.4 22.9 - 35.8 11/11/2014 [facility] HEMATOLOGY PT 13.1 12.0 - 14.7 11/11/2014 [facility] HEMATOLOGY INR 0.99 0.85 - 1.17 11/11/2014 [facility] HEMATOLOGY Segs-Bands # 8.0 1.5 - 8.1 11/11/2014 [facility] HEMATOLOGY Lymphocytes # 1.3 1.0 - 5.5 11/11/2014 [facility] HEMATOLOGY Monocytes # 1.1 0.0 - 0.8 11/11/2014 [facility] HEMATOLOGY Basophils # 0.1 0.0 - 0.2 11/11/2014 [facility] HEMATOLOGY Basophils 0.6 0.0 - 1.0 11/11/2014 [facility] HEMATOLOGY Eosinophils 0.4 0.0 - 4.0 11/11/2014 [facility] HEMATOLOGY Lymphocytes 12.2 20.0 - 40.0 11/11/2014 [facility] HEMATOLOGY Monocytes 10.2 2.0 - 12.0 11/11/2014 [facility] HEMATOLOGY Plt Morph Corrina l (11/11/14 2:02 PM) 11/11/2014 [facility] HEMATOLOGY Segs 76.6 45.0 - 75.0 11/11/2014 [facility] HEMATOLOGY RBC Morph Corrina l (11/11/14 2:02 PM) 11/11/2014 [facility] ELECTROLYTES Sodium Lvl 137 135 - 145 11/07/2014 [facility] ELECTROLYTES Sodium Lvl 136 135 - 145 11/07/2014 [facility] TOXICOLOGY Digoxin Lvl 0.7 0.8 - 2.0 11/07/2014 [facility] ELECTROLYTES Sodium Lvl 135 135 - 145 11/07/2014 [facility] CHEM PANEL Magnesium Lvl 1.8 1.8 - 2.4 11/06/2014 [facility] CHEM PANEL Phosphorus 3.4 2.5 - 4.5 11/06/2014 [facility] ELECTROLYTES AGAP 14.7 10.0 - 20.0 11/06/2014 [facility] ELECTROLYTES eGFR 132 11/06/2014 Result Comment: The eGFR is calculated [...] should be multiplied by the estimated BMI. [facility] ELECTROLYTES Glucose Lvl 80 70 - 99 11/06/2014 [facility] ELECTROLYTES Creatinine Lvl 0.6 0.5 - 1.4 11/06/2014 [facility] ELECTROLYTES BUN 12 7 - 22 11/06/2014 [facility] ELECTROLYTES CO2 24 24 - 32 11/06/2014 [facility] ELECTROLYTES Chloride Lvl 100 95 - 109 11/06/2014 [facility] ELECTROLYTES Potassium Lvl 4.7 3.5 - 5.1 11/06/2014 [facility] ELECTROLYTES Calcium Lvl 8.8 8.5 - 10.5 11/06/2014 [facility] HEMATOLOGY Platelet 288 133 - 450 11/06/2014 [facility] HEMATOLOGY MPV 8.1 7.4 - 10.4 11/06/2014 [facility] HEMATOLOGY Hgb 11.9 14.0 - 18.0 11/06/2014 [facility] HEMATOLOGY Hct 34.2 42.0 - 54.0 11/06/2014 [facility] HEMATOLOGY RBC 3.54 4.70 - 6.10 11/06/2014 [facility] HEMATOLOGY MCH 33.5 27.0 - 31.0 11/06/2014 [facility] HEMATOLOGY MCV 96.6 80.0 - 94.0 11/06/2014 [facility] HEMATOLOGY MCHC 34.7 32.0 - 36.0 11/06/2014 [facility] HEMATOLOGY RDW 12.8 11.5 - 14.5 11/06/2014 [facility] HEMATOLOGY WBC 10.8 3.7 - 10.4 11/06/2014 [facility] HEMATOLOGY Eosinophils # 0.1 0.0 - 0.5 11/06/2014 [facility] HEMATOLOGY Monocytes # 0.9 0.0 - 0.8 11/06/2014 [facility] HEMATOLOGY Eosinophils 0.9 0.0 - 4.0 11/06/2014 [facility] HEMATOLOGY Monocytes 8.6 2.0 - 12.0 11/06/2014 [facility] HEMATOLOGY Lymphocytes 33.4 20.0 - 40.0 11/06/2014 [facility] HEMATOLOGY Lymphocytes # 3.6 1.0 - 5.5 11/06/2014 [facility] HEMATOLOGY Segs-Bands # 6.1 1.5 - 8.1 11/06/2014 [facility] HEMATOLOGY Basophils 0.9 0.0 - 1.0 11/06/2014 [facility] HEMATOLOGY Basophils # 0.1 0.0 - 0.2 11/06/2014 [facility] HEMATOLOGY Segs 56.2 45.0 - 75.0 11/06/2014 [facility] HEMATOLOGY PTT 33.5 22.9 - 35.8 11/05/2014 [facility] HEMATOLOGY PT 14.3 12.0 - 14.7 11/05/2014 [facility] HEMATOLOGY INR 1.10 0.85 - 1.17 11/05/2014 [facility] TOXICOLOGY Valproic Acid Lvl 98 50 - 100 11/05/2014 [facility] CHEM PANEL eGFR 117 11/05/2014 Result Comment: The eGFR is calculated [...] should be multiplied by the estimated BMI. [facility] CHEM PANEL Glucose Lvl 114 70 - 99 11/05/2014 [facility] CHEM PANEL BUN 16 7 - 22 11/05/2014 [facility] CHEM PANEL Calcium Lvl 8.8 8.5 - 10.5 11/05/2014 [facility] CHEM PANEL AGAP 15.0 10.0 - 20.0 11/05/2014 [facility] CHEM PANEL Creatinine Lvl 0.8 0.5 - 1.4 11/05/2014 [facility] CHEM PANEL Potassium Lvl 4.0 3.5 - 5.1 11/05/2014 [facility] CHEM PANEL Chloride Lvl 96 95 - 109 11/05/2014 [facility] CHEM PANEL CO2 24 24 - 32 11/05/2014 [facility] CHEM PANEL Magnesium Lvl 1.9 1.8 - 2.4 11/05/2014 [facility] CHEM PANEL Phosphorus 3.1 2.5 - 4.5 11/05/2014 [facility] HEMATOLOGY Monocytes # 1.2 0.0 - 0.8 11/05/2014 [facility] HEMATOLOGY Lymphocytes # 2.2 1.0 - 5.5 11/05/2014 [facility] HEMATOLOGY Segs-Bands # 14.1 1.5 - 8.1 11/05/2014 [facility] HEMATOLOGY Basophils 0.6 0.0 - 1.0 11/05/2014 [facility] HEMATOLOGY Basophils # 0.1 0.0 - 0.2 11/05/2014 [facility] HEMATOLOGY Lymphocytes 12.4 20.0 - 40.0 11/05/2014 [facility] HEMATOLOGY Segs 80.2 45.0 - 75.0 11/05/2014 [facility] HEMATOLOGY Monocytes 6.7 2.0 - 12.0 11/05/2014 [facility] HEMATOLOGY Eosinophils 0.1 0.0 - 4.0 11/05/2014 [facility] HEMATOLOGY RBC 3.72 4.70 - 6.10 11/05/2014 [facility] HEMATOLOGY WBC 17.5 3.7 - 10.4 11/05/2014 [facility] HEMATOLOGY Hct 35.5 42.0 - 54.0 11/05/2014 [facility] HEMATOLOGY Hgb 12.2 14.0 - 18.0 11/05/2014 [facility] HEMATOLOGY RDW 13.1 11.5 - 14.5 11/05/2014 [facility] HEMATOLOGY MCHC 34.3 32.0 - 36.0 11/05/2014 [facility] HEMATOLOGY MCH 32.7 27.0 - 31.0 11/05/2014 [facility] HEMATOLOGY Platelet 346 133 - 450 11/05/2014 [facility] HEMATOLOGY MCV 95.5 80.0 - 94.0 11/05/2014 [facility] HEMATOLOGY MPV 6.9 7.4 - 10.4 11/05/2014 [facility] PARATHYROID PROFILE Ca Ion WB 1.05 1.05 - 1.25 11/05/2014 [facility] PARATHYROID PROFILE Ca Norm WB 1.08 1.05 - 1.25 11/05/2014 [facility] TOXICOLOGY Valproic Acid Lvl 140 50 - 100 11/05/2014 [facility] ELECTROLYTES CO2 27 24 - 32 11/05/2014 Result Comment: Collection date/time has been modified to: 21:15:00. Previous collection date/time: 11:34:00. [facility] ELECTROLYTES Calcium Lvl 8.3 8.5 - 10.5 11/05/2014 Result Comment: Collection date/time has been modified to: 21:15:00. Previous collection date/time: 11:34:00. [facility] ELECTROLYTES AGAP 11.1 10.0 - 20.0 11/05/2014 Result Comment: Collection date/time has been modified to: 21:15:00. Previous collection date/time: 11:34:00. [facility] ELECTROLYTES Potassium Lvl 4.1 3.5 - 5.1 11/05/2014 Result Comment: Collection date/time has been modified to: 21:15:00. Previous collection date/time: 11:34:00. [facility] ELECTROLYTES Chloride Lvl 99 95 - 109 11/05/2014 Result Comment: Collection date/time has been modified to: 21:15:00. Previous collection date/time: 11:34:00. [facility] ELECTROLYTES BUN 14 7 - 22 11/05/2014 Result Comment: Collection date/time has been modified to: 21:15:00. Previous collection date/time: 11:34:00. [facility] ELECTROLYTES Creatinine Lvl 0.9 0.5 - 1.4 11/05/2014 Result Comment: Collection date/time has been modified to: 21:15:00. Previous collection date/time: 11:34:00. [facility] ELECTROLYTES Glucose Lvl 119 70 - 99 11/05/2014 Result Comment: Collection date/time has been modified to: 21:15:00. Previous collection date/time: 11:34:00. [facility] ELECTROLYTES eGFR 112 11/05/2014 Result Comment: The eGFR is calculated [...] modified to: 21:15:00. Previous collection date/time: 11:34:00. [facility] CARDIAC ENZYMES Troponin-I <0.02 0.00 - 0.40 11/04/2014 [facility] CARDIAC ENZYMES Total CK 85 12 - 191 11/04/2014 [facility] CARDIAC ENZYMES Troponin-T <0.010 0.000 - 0.100 11/04/2014 [facility] CARDIAC ENZYMES CK MB Index 0.9 0.0 - 2.5 11/04/2014 [facility] CARDIAC ENZYMES CK MB 0.8 0.5 - 3.6 11/04/2014 [facility] CHEM PANEL Procalcitonin Lvl <0.05 0.00 - 0.10 11/04/2014 [facility] CHEM PANEL Osmolality 278 280 - 300 11/04/2014 [facility] URINE CHEM U Sodium 74 11/04/2014 [facility] URINE CHEM U Osmolality 658 300 - 800 11/04/2014 [facility] CARDIAC ENZYMES Troponin-I <0.02 0.00 - 0.40 11/04/2014 [facility] CARDIAC ENZYMES Troponin-T <0.010 0.000 - 0.100 11/04/2014 [facility] CARDIAC ENZYMES Total CK 98 12 - 191 11/04/2014 [facility] CARDIAC ENZYMES CK MB Index 0.8 0.0 - 2.5 11/04/2014 [facility] CARDIAC ENZYMES CK MB 0.8 0.5 - 3.6 11/04/2014 [facility] CHEM PANEL Procalcitonin Lvl <0.05 0.00 - 0.10 11/04/2014 [facility] CHEM PANEL Magnesium Lvl 1.8 1.8 - 2.4 11/04/2014 [facility] CHEM PANEL Phosphorus 3.1 2.5 - 4.5 11/04/2014 [facility] HEMATOLOGY WBC 12.1 3.7 - 10.4 11/04/2014 [facility] HEMATOLOGY Hct 37.6 42.0 - 54.0 11/04/2014 [facility] HEMATOLOGY Hgb 13.1 14.0 - 18.0 11/04/2014 [facility] HEMATOLOGY MCV 95.7 80.0 - 94.0 11/04/2014 [facility] HEMATOLOGY RBC 3.93 4.70 - 6.10 11/04/2014 [facility] HEMATOLOGY MCH 33.4 27.0 - 31.0 11/04/2014 [facility] HEMATOLOGY RDW 12.8 11.5 - 14.5 11/04/2014 [facility] HEMATOLOGY MCHC 34.9 32.0 - 36.0 11/04/2014 [facility] HEMATOLOGY MPV 7.1 7.4 - 10.4 11/04/2014 [facility] HEMATOLOGY Platelet 362 133 - 450 11/04/2014 [facility] HEMATOLOGY Segs 90.6 45.0 - 75.0 11/04/2014 [facility] HEMATOLOGY Lymphocytes # 0.9 1.0 - 5.5 11/04/2014 [facility] HEMATOLOGY Monocytes # 0.2 0.0 - 0.8 11/04/2014 [facility] HEMATOLOGY Basophils 0.2 0.0 - 1.0 11/04/2014 [facility] HEMATOLOGY Eosinophils 0.2 0.0 - 4.0 11/04/2014 [facility] HEMATOLOGY Monocytes 1.8 2.0 - 12.0 11/04/2014 [facility] HEMATOLOGY Lymphocytes 7.2 20.0 - 40.0 11/04/2014 [facility] HEMATOLOGY Segs-Bands # 10.9 1.5 - 8.1 11/04/2014 [facility] PARATHYROID PROFILE Ca Norm WB 1.17 1.05 - 1.25 11/04/2014 [facility] PARATHYROID PROFILE Ca Ion WB 1.19 1.05 - 1.25 11/04/2014 [facility] TOXICOLOGY Valproic Acid Lvl 84 50 - 100 11/04/2014 [facility] URINE AND STOOL UA Color Light Yellow (11/04/14 1:16 AM) Yellow 11/04/2014 [facility] URINE AND STOOL UA Urobilinogen 0.2 0.1 - 1.0 11/04/2014 [facility] URINE AND STOOL UA Leuk Est Negative (11/04/14 1:16 AM) Negative 11/04/2014 [facility] URINE AND STOOL UA Nitrite Negative (11/04/14 1:16 AM) Negative 11/04/2014 [facility] URINE AND STOOL UA pH 7.0 5.0 - 8.0 11/04/2014 [facility] URINE AND STOOL UA Glucose Negative (11/04/14 1:16 AM) Negative 11/04/2014 [facility] URINE AND STOOL UA Spec Grav <=1.005 *NA* (11/04/14 1:16 AM) <=1.030 11/04/2014 [facility] URINE AND STOOL UA Protein Negative (11/04/14 1:16 AM) Negative 11/04/2014 [facility] URINE AND STOOL UA Turbidity Clear (11/04/14 1:16 AM) Clear 11/04/2014 [facility] URINE AND STOOL UA Ketones Negative *NA* (11/04/14 1:16 AM) Negative 11/04/2014 [facility] URINE AND STOOL UA Bili Negative *NA* (11/04/14 1:16 AM) Negative 11/04/2014 [facility] URINE AND STOOL UA Blood Trace *ABN* (11/04/14 1:16 AM) Negative 11/04/2014 [facility] URINE AND STOOL UA Sq Epi None Seen (11/04/14 1:16 AM) Few 11/04/2014 [facility] URINE AND STOOL UA Bacteria Occasional /HPF None Seen /HPF 11/04/2014 [facility] URINE AND STOOL UA Amorph Jillian Occasional /HPF None Seen /HPF 11/04/2014 [facility] BACTERIAL - SEROLOGY MRSA by PCR Negative (11/04/14 12:45 AM) 11/04/2014 [facility] BLOOD BANK RESULTS Antibody Scrn Negative (11/03/14 7:30 PM) 11/04/2014 [facility] BLOOD BANK RESULTS ABO/Rh O POS 11/04/2014 [facility] CHEM PANEL Lactic Acid Lvl 0.8 0.5 - 2.2 11/04/2014 [facility] HEMATOLOGY Estimated % Lysis 13.0 0.0 - 7.5 11/04/2014 Result Comment: "Significant Findings ca lled to DR. Jany Ledezma_at _11/03/2014 20:42__by CPang___.Read Back OK."
Called to [id number], not their patient. [facility] HEMATOLOGY K-time 1.2 0.6 - 2.3 11/04/2014 [facility] HEMATOLOGY Rapid TEG Sample Type Cit rated Whole Blood 11/04/2014 [facility] HEMATOLOGY ACT (TEG) 113 86 - 118 11/04/2014 [facility] HEMATOLOGY R-time 0.7 0.4 - 0.7 11/04/2014 [facility] HEMATOLOGY Angle 76 64 - 80 11/04/2014 [facility] HEMATOLOGY Split Point 0.6 11/04/2014 [facility] HEMATOLOGY Max Amp 59 52 - 71 11/04/2014 [facility] HEMATOLOGY G-value 7.2 5.0 - 11.6 11/04/2014 [facility] HEMATOLOGY Basophils # 0.1 0.0 - 0.2 11/04/2014 [facility] HEMATOLOGY Eosinophils # 0.2 0.0 - 0.5 11/04/2014 [facility] TOXICOLOGY Ethanol Lvl <3 11/04/2014 [facility] TOXICOLOGY Etoh (%) <0.003 11/04/2014 [facility] HEMATOLOGY INR 1.06 0.85 - 1.17 11/04/2014 [facility] HEMATOLOGY PT 13.8 12.0 - 14.7 11/04/[address] [facility] HEMATOLOGY PTT 36.3 22.9 - 35.8 11/04/2014 [facility] CHEM PANEL Globulin 4.5 2.0 - 4.0 11/03/2014 [facility] CHEM PANEL A/G Ratio 0.8 0.7 - 1.6 11/03/[address] [facility] CHEM PANEL AGAP 14.1 10.0 - 20.0 11/03/2014 [facility] CHEM PANEL B/C Ratio 16 6 - 25 11/03/2014 [facility] CHEM PANEL Glucose Lvl 95 70 - 99 11/03/[address] [facility] CHEM PANEL eGFR 124 11/03/2014 Result Comment: The eGFR is calculated [...] should be multiplied by the estimated BMI. [facility] CHEM PANEL Potassium Lvl 4.1 3.5 - 5.1 11/03/[address] [facility] CHEM PANEL Chloride Lvl 94 95 - 109 11/03/2014 [facility] CHEM PANEL Sodium Lvl 128 135 - 145 11/03/[address] [facility] CHEM PANEL Calcium Lvl 8.8 8.5 - 10.5 11/03/[address] [facility] CHEM PANEL Creatinine Lvl 0.7 0.5 - 1.4 11/03/2014 [facility] CHEM PANEL CO2 24 24 - 32 11/03/[address] [facility] CHEM PANEL Bili Total 0.2 0.2 - 1.3 11/03/2014 [facility] CHEM PANEL Alk Phos 62 39 - 136 11/03/2014 [facility] CHEM PANEL AST 54 0 - 37 11/03/[address] [facility] CHEM PANEL ALT 56 0 - 65 11/03/[address] [facility] CHEM PANEL Total Protein 8.3 6.4 - 8.4 11/03/[address] [facility] CHEM PANEL Albumin Lvl 3.8 3.5 - 5.0 11/03/[address] [facility] CHEM PANEL BUN 11 7 - 22 11/03/[address] [facility] HEMATOLOGY Basophils 0.9 0.0 - 1.0 11/03/[address] [facility] HEMATOLOGY Segs-Bands # 7.2 1.5 - 8.1 11/03/2014 [facility] Monocytes 8.1 2.0 - 12.0 11/03/[address] [facility] HEMATOLOGY Eosinophils 1.9 0.0 - 4.0 11/03/2014 [facility] Lymphocytes # 2.0 1.0 - 5.5 11/03/2014 [facility] RBC Morph Corrina l (11/03/14 6:09 PM) 11/03/2014 [facility] Lymphocytes 19.3 20.0 - 40.0 11/03/2014 [facility] Plt Morph Corrina l (11/03/14 6:09 PM) 11/03/2014 [facility] Segs 69.8 45.0 - 75.0 11/03/2014 [facility] Monocytes # 0.8 0.0 - 0.8 11/03/[address] [facility] HEMATOLOGY Neut Vac Slight 11/03/2014 [facility] Eosinophils # 0.2 0.0 - 0.5 11/03/2014 [facility] Basophils # 0.1 0.0 - 0.2 11/03/2014 [facility] MCV 94.0 80.0 - 94.0 11/03/2014 [facility] MCH 33.3 27.0 - 31.0 11/03/2014 [facility] RBC 4.05 4.70 - 6.10 11/03/2014 [facility] Platelet 342 133 - 450 11/03/2014 [facility] RDW 12.9 11.5 - 14.5 11/03/2014 [facility] Hgb 13.5 14.0 - 18.0 11/03/2014 [facility] MCHC 35.4 32.0 - 36.0 11/03/2014 [facility] Hct 38.1 42.0 - 54.0 11/03/2014 [facility] MPV 6.6 7.4 - 10.4 11/03/2014 [facility] WBC 10.2 3.7 - 10.4 11/03/[address] [facility] CHEM PANEL eGFR 124 11/02/2014 Result Comment: The eGFR is calculated [...] by the estimated BMI. [facility] CHEM PANEL Alk Phos 67 39 - 136 11/02/[address] [facility] CHEM PANEL Total Protein 7.8 6.4 - 8.4 11/02/2014 [facility] CHEM PANEL Calcium Lvl 8.8 8.5 - 10.5 11/02/2014 [facility] CHEM PANEL BUN 8 7 - 22 11/02/2014 [facility] CHEM PANEL Glucose Lvl 73 70 - 99 11/02/2014 [facility] CHEM PANEL CO2 33 24 - 32 11/02/2014 [facility] CHEM PANEL Creatinine Lvl 0.7 0.5 - 1.4 11/02/2014 [facility] CHEM PANEL AST 38 0 - 37 11/02/2014 [facility] CHEM PANEL ALT 53 0 - 65 11/02/2014 [facility] CHEM PANEL Albumin Lvl 3.7 3.5 - 5.0 11/02/2014 [facility] CHEM PANEL Bili Total 0.2 0.2 - 1.3 11/02/2014 [facility] CHEM PANEL Potassium Lvl 4.0 3.5 - 5.1 11/02/2014 [facility] CHEM PANEL Sodium Lvl 132 135 - 145 11/02/2014 [facility] CHEM PANEL Chloride Lvl 93 95 - 109 11/02/2014 [facility] CHEM PANEL AGAP 10.0 10.0 - 20.0 11/02/2014 [facility] CHEM PANEL Globulin 4.1 2.0 - 4.0 11/02/2014 [facility] CHEM PANEL B/C Ratio 11 6 - 25 11/02/2014 [facility] CHEM PANEL A/G Ratio 0.9 0.7 - 1.6 11/02/2014 [facility] MCHC 35.9 32.0 - 36.0 11/02/[address] [facility] HEMATOLOGY RDW 12.9 11.5 - 14.5 11/02/[address] [facility] HEMATOLOGY Platelet 345 133 - 450 11/02/[address] [facility] HEMATOLOGY MPV 6.7 7.4 - 10.4 11/02/[address] [facility] HEMATOLOGY WBC 10.0 3.7 - 10.4 11/02/[address] [facility] HEMATOLOGY RBC 4.01 4.70 - 6.10 11/02/2014 [facility] MCH 33.9 27.0 - 31.0 11/02/2014 [facility] Hgb 13.6 14.0 - 18.0 11/02/2014 [facility] Hct 37.9 42.0 - 54.0 11/02/[address] [facility] HEMATOLOGY MCV 94.3 80.0 - 94.0 11/02/[address] [facility] HEMATOLOGY Segs 55.2 45.0 - 75.0 11/02/[address] [facility] HEMATOLOGY Lymphocytes 31.9 20.0 - 40.0 11/02/[address] [facility] HEMATOLOGY Monocytes 9.3 2.0 - 12.0 11/02/[address] [facility] HEMATOLOGY Eosinophils 2.9 0.0 - 4.0 11/02/[address] [facility] HEMATOLOGY Basophils 0.7 0.0 - 1.0 11/02/[address] [facility] HEMATOLOGY Segs-Bands # 5.5 1.5 - 8.1 11/02/[address] [facility] HEMATOLOGY Lymphocytes # 3.2 1.0 - 5.5 11/02/[address] [facility] HEMATOLOGY Monocytes # 0.9 0.0 - 0.8 11/02/[address] [facility] HEMATOLOGY Eosinophils # 0.3 0.0 - 0.5 11/02/[address] [facility] HEMATOLOGY Basophils # 0.1 0.0 - 0.2 11/02/[address] [facility] TOXICOLOGY Valproic Acid Lvl 110 50 - 100 11/02/[address] [facility] TOXICOLOGY Digoxin Lvl 0.7 0.8 - 2.0 11/02/[address] [facility] URINE AND STOOL UA Urobilinogen <=1.0 mg/dL 0.1 - 1.0 06/25/2014 [facility] URINE AND STOOL UA Nitrite Negative (06/24/14 7:50 PM) Negative 06/25/[address] [facility] URINE AND STOOL UA Sq Epi Occasional /LPF Few /LPF 06/25/[address] [facility] URINE AND STOOL UA Bili Negative *NA* (06/24/14 7:50 PM) Negative 06/25/[address] [facility] URINE AND STOOL UA Leuk Est Negative (06/24/14 7:50 PM) Negative 06/25/[address] [facility] URINE AND STOOL UA Mucus Few /LPF None Seen /LPF 06/25/[address] [facility] URINE AND STOOL UA RBC 5 0 - 2 06/25/[address] [facility] URINE AND STOOL UA WBC 1 0 - 5 06/25/[address] [facility] URINE AND STOOL UA [place] Yeast Few /HPF None Seen /HPF 06/25/[address] [facility] URINE AND STOOL UA pH 6.0 5.0 - 8.0 06/25/[address] [facility] URINE AND STOOL UA Spec Grav 1.026 <=1.030 06/25/[address] [facility] URINE AND STOOL UA Turbidity Clear (06/24/14 7:50 PM) Clear 06/25/[address] [facility] URINE AND STOOL UA Color Yellow *NA* (06/24/14 7:50 PM) Yellow 06/25/[address] [facility] URINE AND STOOL UA Protein Negative mg/dL Negative mg/dL 06/25/2014 [facility] URINE AND STOOL UA Blood Negative (06/24/14 7:50 PM) Negative 06/25/[address] [facility] URINE AND STOOL UA Ketones Trace mg/dL Negative mg/dL 06/25/2014 [facility] URINE AND STOOL UA Glucose Negative mg/dL Negative mg/dL 06/25/2014 [facility] CHEM PANEL Lipase Lvl 127 73 - 393 06/25/[address] [facility] CHEM PANEL eGFR 118 06/25/2014 <sup>1</sup>Result Comment: The eGFR is calculated using the CKD-EPI formula. In most young, healthy individuals the eGFR will be >90 mL/min/1.73m2. The eGFR declines with age. An eGFR of 60-89 may be normal in some populations, particularly the elderly, for whom the CKD-EPI formula has not been extensively validated. Use of the eGFR is not recommended in the following populations:& lt;br/>
Individuals with unstable creatinine concentrations, including patients [...] should be multiplied by the estimated BMI. [facility] CHEM PANEL Bili Total 0.3 0.2 - 1.3 06/25/[address] [facility] CHEM PANEL Alk Phos 80 39 - 136 06/25/[address] [facility] CHEM PANEL CO2 27 24 - 32 06/25/[address] [facility] CHEM PANEL Total Protein 8.6 6.4 - 8.4 06/25/[address] [facility] CHEM PANEL BUN 11 7 - 22 06/25/[address] [facility] CHEM PANEL Glucose Lvl 80 70 - 99 06/25/2014 <sup>2</sup>Interpretive Data: Adult ref erence range values reflect the clinical guidelines
of the [place] [employer]. [facility] CHEM PANEL Creatinine Lvl 0.8 0.5 - 1.4 06/25/[address] [facility] CHEM PANEL ALT 22 0 - 65 06/25/[address] [facility] CHEM PANEL Albumin Lvl 4.0 3.5 - 5.0 06/25/[address] [facility] CHEM PANEL AST 15 0 - 37 06/25/[address] [facility] CHEM PANEL Potassium Lvl 4.0 3.5 - 5.1 06/25/[address] [facility] CHEM PANEL Calcium Lvl 9.5 8.5 - 10.5 06/25/[address] [facility] CHEM PANEL Chloride Lvl 92 95 - 109 06/25/[address] [facility] CHEM PANEL Sodium Lvl 130 135 - 145 06/25/[address] [facility] CHEM PANEL AGAP 15.0 10.0 - 20.0 06/25/[address] [facility] CHEM PANEL Globulin 4.6 2.0 - 4.0 06/25/[address] [facility] CHEM PANEL A/G Ratio 0.9 0.7 - 1.6 06/25/[address] [facility] CHEM PANEL B/C Ratio 14 6 - 25 06/25/[address] [facility] CHEM PANEL Amylase Lvl 34 25 - 115 06/25/[address] [facility] HEMATOLOGY Segs 63.4 45.0 - 75.0 06/25/[address] [facility] HEMATOLOGY Lymphocytes 25.1 20.0 - 40.0 06/25/[address] [facility] HEMATOLOGY Monocytes 9.4 2.0 - 12.0 06/25/[address] [facility] HEMATOLOGY Basophils # 0.1 0.0 - 0.2 06/25/[address] [facility] HEMATOLOGY Eosinophils # 0.2 0.0 - 0.5 06/25/[address] [facility] HEMATOLOGY Monocytes # 1.0 0.0 - 0.8 06/25/[address] [facility] HEMATOLOGY Lymphocytes # 2.7 1.0 - 5.5 06/25/[address] [facility] HEMATOLOGY Segs-Bands # 6.9 1.5 - 8.1 06/25/[address] [facility] HEMATOLOGY Basophils 0.7 0.0 - 1.0 06/25/[address] [facility] HEMATOLOGY Eosinophils 1.4 0.0 - 4.0 06/25/[address] [facility] HEMATOLOGY MPV 6.7 7.4 - 10.4 06/25/2014 [facility] Platelet 377 133 - 450 06/25/[address] [facility] HEMATOLOGY RDW 13.1 11.5 - 14.5 06/25/2014 [facility] MCHC 35.4 32.0 - 36.0 06/25/2014 [facility] MCH 32.9 27.0 - 31.0 06/25/2014 [facility] Hct 40.1 42.0 - 54.0 06/25/2014 [facility] Hgb 14.2 14.0 - 18.0 06/25/2014 [facility] RBC 4.33 4.70 - 6.10 06/25/2014 [facility] WBC 10.8 3.7 - 10.4 06/25/[address] [facility] HEMATOLOGY MCV 92.8 80.0 - 94.0 06/25/[address] [facility] IMMUNOLOGY CDC HIV 4th GEN Negat chanel (06/24/14 7:46 PM) Negative 06/25/[address] [facility] URINALYSIS UA Color Ltyellow 03/01/[address] [facility] URINALYSIS UA Urobilinogen <=1.0 mg/dL 0.1 - 1.0 03/01/[address] [facility] URINALYSIS UA Nitrite Negat chanel (02/28/2013 22:35:00) Negati ve 03/01/[address] [facility] URINALYSIS UA Leuk Est Negat chanel (02/28/2013 22:35:00) Negati ve 03/01/[address] [facility] URINALYSIS UA Sq Epi Occas ional /LPF Few 03/01/[address] [facility] URINALYSIS UA RBC <1 0 - 2 03/01/[address] [facility] URINALYSIS UA Turbidity Clear (02/28/2013 22:35:00) Clear 03/01/[address] [facility] URINALYSIS UA Spec Grav 1.014 <=1.030 03/01/[address] [facility] URINALYSIS UA pH 7.0 5.0 - 8.0 03/01/[address] [facility] URINALYSIS UA Protein Negat chanel mg/dL Negative 03/01/[address] [facility] URINALYSIS UA Glucose 50 mg/dL Negative 03/01/[address] [facility] URINALYSIS UA Ketones Trace mg/dL Negative 03/01/[address] [facility] URINALYSIS UA Bili Negat chanel *NA* (02/28/2013 22:35:00) Negati ve 03/01/[address] [facility] URINALYSIS UA Blood Negat chanel (02/28/2013 22:35:00) Negati ve 03/01/[address] [facility] CHEMISTRY B/C Ratio 17 6 - 25 03/01/[address] [facility] CHEMISTRY AGAP 13.9 10.0 - 20.0 03/01/[address] [facility] CHEMISTRY A/G Ratio 0.9 0.7 - 1.6 03/01/[address] [facility] CHEMISTRY Globulin 4.3 2.0 - 4.0 03/01/[address] [facility] CHEMISTRY eGFR 126 03/01/2013 <sup>1</sup>Result Comment: The eGFR is calculated using the CKD-EPI formula. In most young, healthy individuals the eGFR will be >90 mL/min/1.73m2. The eGFR declines with age. An eGFR of 60-89 may be normal in some populations, particularly the elderly, for whom the CKD-EPI formula has not been extensively validated. Use of the eGFR is not recommended in the following populations:& lt;br/>
Individuals with unstable creatinine concentrations, including patients [...] should be multiplied by the estimated BMI. [facility] CHEMISTRY Glucose Lvl 137 70 - 99 03/01/2013 [place] <sup>2</sup>Interpretive Data: Adult ref erence range values reflect the clinical guidelines
of the [place] [employer]. [facility] CHEMISTRY Sodium Lvl 136 135 - 145 03/01/2013 Normal [facility] CHEMISTRY Potassium Lvl 3.9 3.5 - 5.1 03/01/2013 Normal [facility] CHEMISTRY Calcium Lvl 9.4 8.5 - 10.5 03/01/2013 Normal [facility] CHEMISTRY Creatinine Lvl 0.7 0.5 - 1.4 03/01/2013 Normal [facility] CHEMISTRY BUN 12 7 - 22 03/01/2013 Normal [facility] CHEMISTRY Bili Total 0.2 0.2 - 1.3 03/01/2013 Normal [facility] CHEMISTRY CO2 28 24 - 32 03/01/2013 Normal [facility] CHEMISTRY Chloride Lvl 98 95 - 109 03/01/2013 Normal [facility] CHEMISTRY Total Protein 8.2 6.4 - 8.4 03/01/2013 Normal [facility] CHEMISTRY Albumin Lvl 3.9 3.5 - 5.0 03/01/2013 Normal [facility] CHEMISTRY Alk Phos 95 39 - 136 03/01/2013 Normal [facility] CHEMISTRY ALANINE AMINOTRANSFERASE 5 2 0 - 65 03/01/2013 Normal [facility] CHEMISTRY ASPARTATE TRANSAMINASE 33 0 - 37 03/01/2013 Normal [facility] HEMATOLOGY Basophils # 0.0 0.0 - 0.2 03/01/2013 Normal [facility] HEMATOLOGY Eosinophils # 0.4 0.0 - 0.5 03/01/2013 Normal [facility] HEMATOLOGY Lymphocytes # 2.6 1.0 - 5.5 03/01/2013 Normal [facility] HEMATOLOGY Segs-Bands # 6.2 1.5 - 8.1 03/01/2013 Normal [facility] HEMATOLOGY Basophils 0.4 0.0 - 1.0 03/01/2013 Normal [facility] HEMATOLOGY Eosinophils 4.2 0.0 - 4.0 03/01/2013 [facility] HEMATOLOGY Monocytes # 1.2 0.0 - 0.8 03/01/2013 [facility] HEMATOLOGY Lymphocytes 24.5 20.0 - 40.0 03/01/2013 Normal [facility] HEMATOLOGY Monocytes 11.1 2.0 - 12.0 03/01/2013 Normal [facility] HEMATOLOGY Segs 59.8 45.0 - 75.0 03/01/2013 [facility] HEMATOLOGY MCH 31.5 27.0 - 31.0 03/01/2013 [facility] HEMATOLOGY MPV 7.5 7.4 - 10.4 03/01/[address] [facility] HEMATOLOGY Platelet 356 133 - 450 03/01/[address] [facility] HEMATOLOGY RDW 13.8 11.5 - 14.5 03/01/[address] [facility] HEMATOLOGY MCHC 33.7 32.0 - 36.0 03/01/[address] [facility] HEMATOLOGY MCV 93.4 80.0 - 94.0 03/01/[address] [facility] HEMATOLOGY Hct 40.4 42.0 - 54.0 03/01/[address] [facility] HEMATOLOGY Hgb 13.6 14.0 - 18.0 03/01/[address] [facility] HEMATOLOGY RBC X 10x6 4.32 4.70 - 6.10 03/01/[address] [facility] HEMATOLOGY WBC X 10x3 10.4 3.7 - 10.4 03/01/[address] [facility] Pathology Reports No Data Provided for This Section Diagnostic Reports Report Value Date Source Chest 1view DX PROCEDURE INFOR MATION: Exam: XR Chest, 1 View Exam date and time: 09/16/2019 11:57 AM Age: 39 years old Clinical indication: /dizzy TECHNIQUE: Imaging protocol: XR of the chest Views: 1 view. COMPARISON: CHEST 1VIEW DX 09/13/2019 10:32 PM FINDINGS: Lungs: No consolidation. Pleural space: No significant pleural effusion. No significant pneumothorax. Heart/Mediastinum: Stable cardiac silhouette and mediastinum. Vasculature is unremarkable. Bones/joints: Widened acromioclavicular and coracoclavicular intervals may represent acromioclavicular injury, acute or chronic. IMPRESSION: No acute cardiopulmonary process detected. Neto Hyman MD On 09/16/2019 12:25:10; [id number] 09/16/[address] [facility] Brain wo contrast CT Radiation Dose CTDIVOL = 0 (mGy): DLP = 982.82 (mGy-cm) PROCEDURE INFORMATION: Exam: CT Head Without Contrast Exam date and time: 09/13/2019 11:16 PM Age: 39 years old Clinical indication: Other: Sz; Patient HX: PT presents from home, PT had 2 seizures today with HX of seizures. PT states 'i just dont feel good now'. Bgl 269. [facility] ; Additional info: /sz TECHNIQUE: Imaging protocol: Computed tomography of the head without contrast. Radiation optimization: All CT scans at this facility use at least one of these dose optimization techniques: automated exposure control; mA and/or kV adjustment per patient size (includes targeted exams where dose is matched to clinical indication); or iterative reconstruction. COMPARISON: BRAIN WO CONTRAST CT 05/02/2018 11:35 AM RADIATION DOSE METRICS: Total DLP: 982.82 mGy-cm FINDINGS: Brain: No acute intracranial hemorrhage. No mass effect or midline shift. No significant white matter disease. No edema. Basal ganglia and right frontal lobe periventricular calcifications are stable. Additional scattered parenchymal calcifications suggests sequela of prior infectious/inflammatory process. Ventricles: No acute hydrocephalus. Bones/joints: Calvarial anita holes again noted. No depressed calvarial fractures. Sinuses: No evidence for acute sinusitis. Mastoid air cells: Clear. Soft tissues: No soft tissue gas or radiopaque foreign body. Notes: If there is continued clinical concern, further assessment with MRI should be considered. IMPRESSION: No CT evidence for acute intracranial process. Stable findings as above. Master Aguilar MD On 09/13/2019 23:24:46; [id number] 09/13/[address] [facility] Chest 1view DX PROCEDURE INFOR MATION: Exam: XR Chest, 1 View Exam date and time: 09/13/2019 10:32 PM Age: 39 years old Clinical indication: /ams TECHNIQUE: Imaging protocol: XR of the chest Views: 1 view. COMPARISON: CHEST 1VIEW DX 05/02/2018 10:26 AM FINDINGS: Lungs: Mild decreased lung volumes. No consolidation. Pleural space: Unremarkable. No pleural effusion. No pneumothorax. Heart/Mediastinum: Heart size is within normal limits. Vasculature is unremarkable. Bones/joints: Unremarkable. IMPRESSION: No acute cardiopulmonary findings. George Rice MD On 09/13/2019 22:53:10; [id number] 09/13/[address] [facility] Spine cervical wo contrast CT (ER) Clinical Indication: - syncope Comparison: CT head done on 01/17/2015 TECHNIQUE: Head: CT images were obtained from the foramen magnum to the vertex without the use of intravenous contrast on a multidetector CT. Coronal and sagittal reconstructions were obtained. C-spine: Multi-detector CT imaging of the cervical spine is performed. Coronal and sagittal reconstructions were obtained. CT imaging performed at this location utilizes radiation dose optimization techniques which include one or more of the following: -Automated exposure control -Adjustment of the mA and/or kV accordin g to patient size -Use of iterative reconstruction technSpaceFace ue CT Radiation Dose: Head DLP 982.82 mGy-cm, C-spine DLP 850.82 mGy-cm FINDINGS: HEAD: BRAIN PARENCHYMA: There are no intra-axial or extra-axial fluid collections, intraventricular or intraparenchymal hemorrhage. There are no focal mass lesions on this noncontrast head CT. There is no mass effect, midline shift or edema. The johnson-white matter differentiation is preserved. Calcifications in bilateral basal ganglia and in the right frontal lobe periventricular white matter are nonspecific, possibly metabolic in etiology. Intracranial atherosclerotic arterial calcifications are noted. VENTRICLES: The lateral ventricles, third and fourth ventricles appear unremarkable. The basilar cisterns are normal. ORBITS, MASTOIDS AND PARANASAL SINUSES: The visualized orbits are unremarkable. The visualized paranasal sinuses and mastoid air cells are clear. SKULL: Old right calvarial anita holes. No acute calvarial fracture or focal suspicious osseous lesions are identified. If there is further concern for intracranial pathology or acute stroke, MRI of the brain may be performed for complete assessment. C-SPINE: LIMITATIONS: Please note that the intervertebral disks, epidural spaces, and cord are suboptimally evaluated, a common CT limitation, especially along the lower cervical and upper thoracic spine, where the patient's shoulders contribute to beam-hardening artifact. ALIGNMENT AND GENERAL ASSESSMENT: There is normal alignment of the cervical spine. There are no fractures or subluxations. The craniocervical junction is normal. The atlanto-dental alignment appears unremarkable. The posterior elements and spinous processes are intact. The facet joint, spinolaminar and spinous process alignment are normal. DISK SPACES: No significant disc bulge/herniation, spinal canal stenosis or neuroforaminal narrowing. VISUALIZED LUNG APICES AND SOFT TISSUES: Visualized lung apices are clear. The prevertebral soft tissues are normal. 4 mm hypodense nodule in the right thyroid lobe. Thyroid gland is otherwise unremarkable. CT myelogram or MRI of the cervical spine may be performed, if there is further concern. IMPRESSION: 1. No evidence of acute intracranial abn ormality or calvarial fracture. 2. No evidence of acute fracture or trau matic subluxation of the cervical spine. ----- SL: OMAYRA 05/02/[address] [facility] Chest 1view DX Clinical Indica tion: - syncope Comparison: Comparison is made to chest radiograph examination dated 07/07/2015. FINDINGS: The cardiomediastinal silhouette is within normal limits for appearance. No focal pulmonary consolidation, pneumothorax or pleural effusion. Midline trachea. IMPRESSION: 1. No acute cardiopulmonary process. SL: [id number] 05/02/[address] [facility] Brain wo contrast CT Clinical Indication: - syncope Comparison: CT head done on 01/17/2015 TECHNIQUE: Head: CT images were obtained from the foramen magnum to the vertex without the use of intravenous contrast on a multidetector CT. Coronal and sagittal reconstructions were obtained. C-spine: Multi-detector CT imaging of the cervical spine is performed. Coronal and sagittal reconstructions were obtained. CT imaging performed at this location utilizes radiation dose optimization techniques which include one or more of the following: -Automated exposure control -Adjustment of the mA and/or kV accordin g to patient size -Use of iterative reconstruction technSpaceFace ue CT Radiation Dose: Head DLP 982.82 mGy-cm, C-spine DLP 850.82 mGy-cm FINDINGS: HEAD: BRAIN PARENCHYMA: There are no intra-axial or extra-axial fluid collections, intraventricular or intraparenchymal hemorrhage. There are no focal mass lesions on this noncontrast head CT. There is no mass effect, midline shift or edema. The johnson-white matter differentiation is preserved. Calcifications in bilateral basal ganglia and in the right frontal lobe periventricular white matter are nonspecific, possibly metabolic in etiology. Intracranial atherosclerotic arterial calcifications are noted. VENTRICLES: The lateral ventricles, third and fourth ventricles appear unremarkable. The basilar cisterns are normal. ORBITS, MASTOIDS AND PARANASAL SINUSES: The visualized orbits are unremarkable. The visualized paranasal sinuses and mastoid air cells are clear. SKULL: Old right calvarial anita holes. No acute calvarial fracture or focal suspicious osseous lesions are identified. If there is further concern for intracranial pathology or acute stroke, MRI of the brain may be performed for complete assessment. C-SPINE: LIMITATIONS: Please note that the intervertebral disks, epidural spaces, and cord are suboptimally evaluated, a common CT limitation, especially along the lower cervical and upper thoracic spine, where the patient's shoulders contribute to beam-hardening artifact. ALIGNMENT AND GENERAL ASSESSMENT: There is normal alignment of the cervical spine. There are no fractures or subluxations. The craniocervical junction is normal. The atlanto-dental alignment appears unremarkable. The posterior elements and spinous processes are intact. The facet joint, spinolaminar and spinous process alignment are normal. DISK SPACES: No significant disc bulge/herniation, spinal canal stenosis or neuroforaminal narrowing. VISUALIZED LUNG APICES AND SOFT TISSUES: Visualized lung apices are clear. The prevertebral soft tissues are normal. 4 mm hypodense nodule in the right thyroid lobe. Thyroid gland is otherwise unremarkable. CT myelogram or MRI of the cervical spine may be performed, if there is further concern. IMPRESSION: 1. No evidence of acute intracranial abn ormality or calvarial fracture. 2. No evidence of acute fracture or trau matic subluxation of the cervical spine. ----- SL: [id number] 05/02/[address] [facility] Chest 1view DX Chest 1view DX CLINICAL HISTORY:Abnormal chest sounds COMPARISON: none FINDINGS: Limited AP portable study. Lungs are reasonably well inflated. No consolidation, effusion or pneumothorax. Trachea is midline. Cardiomediastinal silhouette is within normal limits. No pulmonary edema. No significant bony abnormality is noted. IMPRESSION: No acute abnormality is noted in the chest. SL: [id number] 07/07/2015 [facility] Brain wo contrast CT EXAM: CT HEAD WITHOUT CONTRAST INDICATION: Headache with neoplasm, lymphoma, recent SDH. COMPARISON: Prior study under separate TECHNIQUE: Contiguous axial images of the brain are obtained from skull base to vertex without administration of intravenous contrast. DISCUSSION: Interval decrease in size of subacute to chronic right hemispheric subdural hemorrhage now measuring 5 mm in maximal width. No acute intracranial hemorrhage. No mass effect. 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 No hydrocephalus. Right frontal parietal calvarial anita holes are redemonstrated. Paranasal sinuses and mastoid air cells are clear. IMPRESSION: Interval decrease in size of subacute to chronic right hemispheric subdural hemorrhage. No acute intracranial abnormality. 01/17/2015 [facility] Brain wo contrast CT EXAM: CT HEAD [...] IMPRESSION: 1. Stable small residual mixed density r ight frontal convexity subdural hemorrhage with stable mild mass effect over the underlying right anterior cerebral hemispheres with approximately 2 mm right to left midline shift. These findings are in agreement with preliminary report made by vacuum cleaner repair person Cook Larder. Creator:Mindy Pearson Date:Nov 22, 2014 17:52:36 Subject: Right frontoparietal convexity SDH, unchanged since prior CT dated 11/22/2014 at 11:46am. No midline shift or herniation. 11/22/2014 [facility] Abdomen AP DX INDICATION: Flan k pain. PROCEDURE: Abdomen, one view. FINDINGS: The [...] nephrolithiasis. 2. Nonobstructive bowel gas pattern. 11/14/2014 [facility] Brain wo contrast CT EXAM: CT HEAD [...] 3. Stable mild mass effect over the unde rlying right anterior cerebral hemispheres with approximately 1.5 to 2 mm right to left midline shift. 11/11/2014 [facility] Pelvis AP DX EXAM: XR PELVIS 1 VIEW DATE: November 11, 2014 at 1426 INDICATION: Pain Post Trauma COMPARISON: None. TECHNIQUE: A single AP radiograph of the pelvis DISCUSSION: No acute fracture or malalignment of the pelvis is identified. No soft tissue abnormality is identified. IMPRESSION: No bony abnormality identified. 11/11/2014 [facility] Spine lumbar 2 or 3 views DX E XAM: XR LUMBAR SPINE 3 VIEWS DATE: November [...] identified. IMPRESSION: No bony abnormality identified. 11/11/2014 [facility] Chest 1view DX EXAM: XR CHEST 1 VIEW DATE: November 11, 2014 at 1357 INDICATION: Chest pain COMPARISON: None TECHNIQUE: Single AP view of the chest DISCUSSION: No pulmonary or pleural based abnormality. The cardiomediastinal silhouette is normal for technique. No acute bony abnormality. IMPRESSION: No acute cardiopulmonary abnormality. 11/11/2014 [facility] Brain wo contrast CT EXAM: CT BRAIN [...] collection with decrease in mass effect. 11/05/2014 [facility] Brain wo contrast CT CT SCAN O F THE BRAIN DATE: 11/03/2014 at 11:47 p.m. [...] defined. IMPRESSION: 1. Postoperative changes status post dra abarca of right-sided subdural hematoma. The hematoma has decreased in size with improvement of mass effect and right to left midline shift. Resident preliminary report by Dr. Nishi Shannon: Interval R frontal/parietal craniotomy w/ evacuation of R SDH; surgical drain traverses along the R frontoparietal subdural fluid/air. R to L midline shift has improved (9 mm compared to 13 mm on prior exam). 11/03/2014 [facility] Brain CTA CT ANGIOGRAM OF THE HEAD DATE: 11/03/2014 at 8:18 p.m. CLINICAL INFORMATION: Bleeding. Comparison studies: CT brain 11/03/2014 at 6:15 p.m. from [facility]. TECHNIQUE: Axial images were obtained from the [...] shift. IMPRESSION: 1. Normal intracranial CT angiogram. The re are no intracranial aneurysms or vascular malformations. 2. Large, 2 cm in thickness right convex ity subdural hematoma with mass effect and 1.2 cm of right to left midline shift, unchanged. Resident preliminary report by Dr. Nishi Shannon: No vascular abnormality seen. Remainder of intracranial findings not significantly changed from CT head performed at 1815. 11/03/2014 [facility] Spine cervical wo contrast CT EXAM: CT [...] IMPRESSION: No acute fracture or malalignment. 11/03/2014 [facility] Brain wo contrast CT Examinati on: CT scan of the brain without contrast. [...] 11/03/2014 at 6:24 p.m. SL: 16 11/03/[address] [facility] Abdomen/Pelvis wo IV contrast CT I. CT [...] 1. Negative noncontrast CT scan of the a bdomen and pelvis. There is no evidence of an acute or significant focal intra-abdominal process. There are no urinary tract calculi or hydronephrosis. 2. Status post cholecystectomy. 3. Tiny right renal cyst is noted, stabl ephraim from 02/28/2013. Coding: Abdomen/Pelvis wo contrast CT SL: 13 Markos Remy M.D. 06/24/[address] [facility] Abdomen/Pelvis wo contrast CT NAME: GUSTAVO ROBERSON [...] 3. Small amount of left internal iliac a rtery calcification. SL: 14 02/28/[address] [facility] Consultation Notes No Data Provided for This Section Discharge Summaries No Data Provided for This Section History and Physicals No Data Provided for This Section Vital Signs Vital Sign Value Date Comments Source Respitory Rate 20 09/16/[address] [facility] Temperature Oral (F) 98.0 F 09/16/[address] [facility] Systolic (mm Hg) 135 09/16/[address] [facility] Diastolic (mm Hg) 77 09/16/[address] [facility] Respitory Rate 14 09/16/[address] [facility] Systolic (mm Hg) 142 09/16/[address] [facility] Diastolic (mm Hg) 76 09/16/2019 [facility] Height 162.56 cm 09/16/2019 [facility] BMI Calculated 25.8 09/16/2019 [facility] Weight 68.182 09/16/2019 [facility] Systolic (mm Hg) 125 09/16/2019 [facility] Diastolic (mm Hg) 86 09/16/[address] [facility] Heart Rate 95 09/16/2019 [facility] Respitory Rate 16 09/16/[address] [facility] Temperature Oral (F) 98.8 F 09/16/[address] [facility] Temperature Oral (F) 97.9 F 09/14/[address] [facility] Heart Rate 110 09/14/2019 [facility] Respitory Rate 17 09/14/2019 [facility] Systolic (mm Hg) 140 09/14/2019 [facility] Diastolic (mm Hg) 87 09/14/[address] [facility] Temperature Oral (F) 98.4 F 09/14/[address] [facility] Heart Rate 102 09/14/2019 [facility] Respitory Rate 17 09/14/2019 [facility] Systolic (mm Hg) 146 09/14/2019 [facility] Diastolic (mm Hg) 89 09/14/[address] [facility] Temperature Oral (F) 98.1 F 09/14/[address] [facility] Heart Rate 95 09/14/2019 [facility] Respitory Rate 18 09/14/2019 [facility] Systolic (mm Hg) 128 09/14/2019 [facility] Diastolic (mm Hg) 86 09/14/2019 [facility] Height 167.64 cm 09/14/2019 [facility] Weight 63.636 09/14/2019 [facility] BMI Calculated 22.64 09/14/2019 [facility] Height 167.64 cm 09/14/2019 [facility] BMI Calculated 22.64 09/14/2019 [facility] Weight 63.636 09/14/2019 [facility] Systolic (mm Hg) 122 05/02/2018 [facility] Diastolic (mm Hg) 82 05/02/2018 [facility] Respitory Rate 15 05/02/2018 [facility] Respitory Rate 11 05/02/2018 [facility] Systolic (mm Hg) 123 05/02/2018 [facility] Diastolic (mm Hg) 85 05/02/2018 [facility] Systolic (mm Hg) 133 05/02/2018 [facility] Diastolic (mm Hg) 86 05/02/2018 [facility] Heart Rate 100 05/02/2018 [facility] Respitory Rate 20 05/02/[address] [facility] Temperature Oral (F) 98.5 F 05/02/2018 [facility] BMI Calculated 29.24 05/02/2018 [facility] Weight 77.273 05/02/[address] [facility] Height 162.56 cm 05/02/[address] [facility] Systolic (mm Hg) 98 07/07/2015 [facility] Diastolic (mm Hg) 66 07/07/2015 [facility] Heart Rate 80 07/07/2015 [facility] Respitory Rate 18 07/07/2015 [facility] Heart Rate 83 07/07/2015 [facility] Systolic (mm Hg) 114 07/07/2015 [facility] Diastolic (mm Hg) 83 07/07/2015 [facility] Temperature Oral (F) 97.9 F 07/07/2015 [facility] Respitory Rate 18 07/07/2015 [facility] Weight 72.727 07/07/2015 [facility] Systolic (mm Hg) 98 07/07/2015 [facility] Diastolic (mm Hg) 62 07/07/2015 [facility] Respitory Rate 20 07/07/2015 [facility] Heart Rate 70 07/07/2015 [facility] Temperature Oral (F) 97.7 F 07/07/2015 [facility] Respitory Rate 18 01/17/2015 [facility] Heart Rate 79 01/17/2015 [facility] Systolic (mm Hg) 119 01/17/2015 [facility] Diastolic (mm Hg) 70 01/17/2015 [facility] Temperature Oral (F) 98 F 01/17/2015 [facility] Systolic (mm Hg) 108 01/17/2015 [facility] Diastolic (mm Hg) 72 01/17/2015 [facility] Heart Rate 70 01/17/2015 [facility] Respitory Rate 17 01/17/2015 [facility] Systolic (mm Hg) 110 01/17/2015 [facility] Diastolic (mm Hg) 62 01/17/2015 [facility] Respitory Rate 17 01/17/2015 [facility] Heart Rate 72 01/17/2015 [facility] Temperature Oral (F) 97 F 01/17/2015 [facility] Temperature Oral (F) 97 F 01/17/2015 [facility] Weight 68.182 01/16/2015 [facility] BMI Calculated 25.8 01/16/2015 [facility] Height 162.56 cm 01/16/2015 [facility] Temperature Oral (F) 98.1 F 11/24/2014 [facility] Heart Rate 70 11/24/2014 [facility] Respitory Rate 16 11/24/2014 [facility] Systolic (mm Hg) 95 11/24/2014 [facility] Diastolic (mm Hg) 61 11/24/2014 [facility] Systolic (mm Hg) 119 11/24/2014 [facility] Diastolic (mm Hg) 71 11/24/2014 [facility] Respitory Rate 16 11/24/2014 [facility] Heart Rate 66 11/24/2014 [facility] Temperature Oral (F) 97.8 F 11/24/2014 [facility] Systolic (mm Hg) 99 11/24/2014 [facility] Diastolic (mm Hg) 62 11/24/2014 [facility] Heart Rate 88 11/24/2014 [facility] Respitory Rate 16 11/24/2014 [facility] Temperature Oral (F) 97.9 F 11/24/2014 [facility] BMI Calculated 25.05 11/23/2014 [facility] Weight 70.4 11/23/2014 [facility] Height 167.64 cm 11/23/2014 [facility] Weight 70 0 11/22/2014 [facility] Heart Rate 74 11/15/2014 [facility] Respitory Rate 20 11/15/2014 [facility] Systolic (mm Hg) 93 11/15/2014 [facility] Diastolic (mm Hg) 55 11/15/2014 [facility] Temperature Oral (F) 98.5 F 11/15/2014 [facility] Heart Rate 76 11/15/2014 [facility] Temperature Oral (F) 98.6 F 11/15/2014 [facility] Respitory Rate 18 11/15/2014 [facility] Systolic (mm Hg) 91 11/15/2014 [facility] Diastolic (mm Hg) 61 11/15/2014 [facility] Systolic (mm Hg) 89 11/15/2014 [facility] Diastolic (mm Hg) 54 11/15/2014 [facility] Respitory Rate 18 11/15/2014 [facility] Temperature Oral (F) 98.5 F 11/15/2014 [facility] Heart Rate 72 11/15/2014 [facility] BMI Calculated 21.33 11/12/2014 [facility] Weight 61.8 11/12/2014 [facility] Height 170.2 cm 11/12/2014 [facility] Weight 61.8 11/12/2014 [facility] Weight 61.8 11/12/2014 [facility] Systolic (mm Hg) 121 11/07/2014 [facility] Diastolic (mm Hg) 73 11/07/2014 [facility] Temperature Oral (F) 98.3 F 11/07/2014 [facility] Respitory Rate 18 11/07/2014 [facility] Respitory Rate 18 11/07/2014 [facility] Systolic (mm Hg) 113 11/07/2014 [facility] Diastolic (mm Hg) 69 11/07/2014 [facility] Temperature Oral (F) 98.9 F 11/07/2014 [facility] Heart Rate 88 11/07/2014 [facility] Respitory Rate 18 11/07/2014 [facility] Heart Rate 96 11/07/2014 [facility] Systolic (mm Hg) 109 11/07/2014 [facility] Diastolic (mm Hg) 63 11/07/2014 [facility] Temperature Oral (F) 97.9 F 11/07/2014 [facility] Heart Rate 84 11/06/2014 [facility] Height 170.18 cm 11/04/2014 [facility] Weight 68.182 11/04/2014 [facility] BMI Calculated 23.54 11/04/2014 [facility] Respitory Rate 18 11/03/[address] [facility] Temperature Oral (F) 98.5 F 11/03/[address] [facility] Heart Rate 93 11/03/[address] [facility] Systolic (mm Hg) 124 11/03/[address] [facility] Diastolic (mm Hg) 74 11/03/[address] [facility] Temperature Oral (F) 97.6 F 11/03/[address] [facility] Respitory Rate 18 11/03/[address] [facility] Weight 68.182 11/03/[address] [facility] BMI Calculated 25.8 11/03/[address] [facility] Height 162.56 cm 11/03/[address] [facility] Systolic (mm Hg) 122 11/03/[address] [facility] Diastolic (mm Hg) 84 11/03/[address] [facility] Heart Rate 89 11/03/[address] [facility] Respitory Rate 18 11/02/[address] [facility] Systolic (mm Hg) 121 11/02/[address] [facility] Diastolic (mm Hg) 81 11/02/[address] [facility] Temperature Oral (F) 97.9 F 11/02/2014 [facility] Heart Rate 90 11/02/2014 [facility] Respitory Rate 18 11/02/2014 [facility] Systolic (mm Hg) 118 11/02/2014 [facility] Diastolic (mm Hg) 65 11/02/[address] [facility] Temperature Oral (F) 98.0 F 11/02/[address] [facility] Heart Rate 90 11/02/2014 [facility] Systolic (mm Hg) 125 11/02/2014 [facility] Diastolic (mm Hg) 85 11/02/2014 [facility] Respitory Rate 18 11/02/[address] [facility] Heart Rate 102 11/02/2014 [facility] BMI Calculated 24.64 11/02/[address] [facility] Temperature Oral (F) 98.4 F 11/02/2014 [facility] Weight 71.364 11/02/[address] [facility] Height 170.18 cm 11/02/[address] [facility] Respitory Rate 16 06/25/2014 [facility] Systolic (mm Hg) 126 06/25/2014 [facility] Diastolic (mm Hg) 80 06/25/[address] [facility] Heart Rate 89 06/25/[address] [facility] Temperature Oral (F) 98 F 06/25/[address] [facility] Heart Rate 102 06/25/[address] [facility] Temperature Oral (F) 97.9 F 06/25/[address] [facility] Respitory Rate 20 06/25/2014 [facility] Systolic (mm Hg) 150 06/25/2014 [facility] Diastolic (mm Hg) 96 06/25/2014 [facility] Respitory Rate 18 06/24/[address] [facility] Temperature Oral (F) 99.1 F 06/24/[address] [facility] Heart Rate 117 06/24/2014 [facility] Systolic (mm Hg) 142 06/24/2014 [facility] Diastolic (mm Hg) 93 06/24/2014 [facility] Weight 70.455 06/24/[address] [facility] Height 162.56 cm 06/24/[address] [facility] BMI Calculated 26.66 06/24/2014 [facility] Respitory Rate 16 03/01/2013 [facility] Diastolic (mm Hg) 55 03/01/2013 [facility] Systolic (mm Hg) 113 03/01/[address] [facility] Temperature Oral (F) 97.9 F 03/01/2013 [facility] Diastolic (mm Hg) 52 03/01/2013 [facility] Systolic (mm Hg) 101 03/01/2013 [facility] Systolic (mm Hg) 113 03/01/2013 [facility] Respitory Rate 16 03/01/2013 [facility] Diastolic (mm Hg) 58 03/01/[address] [facility] Respitory Rate 18 03/01/[address] [facility] Temperature Oral (F) 98.0 F 03/01/[address] [facility] Weight 72.727 03/01/[address] [facility] Height 162.56 cm 03/01/[address] [facility] Temperature Oral (F) 97.7 F 03/01/[address] [facility] Heart Rate 93 03/01/[address] [facility] Encounters Location Location Details Encounter Type Encounter Number Reason For Visit Attending Provider ADM Date DC Date Status Source [facility] Emergency [id number] ABDOMINAL PAIN CHAI DEVI 02/28/2013 03/01/2013 Active [facility] [id number] Bola Oliverasonmaribel 06/24/2014 06/25/2014 [facility] [id number] 02 Moses RigginsMitra 11/01/2014 11/02/2014 [facility] [id number] Jeremy Bentley 11/03/2014 11/04/2014 [facility] Inpatient [id number] Neto Lillian 11/04/2014 11/07/2014 [facility] Inpatient [id number] Bahman Sturdivant 11/11/2014 11/15/2014 [facility] Inpatient [id number] Non Physician 11/22/2014 11/24/2014 [facility] [id number] Christian Tate 01/16/2015 01/17/2015 [facility] [id number] 01 George Fierro 07/07/2015 07/07/2015 [facility] Emergency [id number] Karlo Hyman 05/02/2018 05/02/2018 [facility] Observation [id number] Betty Blanco 09/14/2019 09/15/2019 [facility] Emergency [id number] Louie Cuevas 09/16/2019 09/16/[address] [facility] Procedures Procedure Code Date Perfomer Comments Source Gallbladder stone removal [id number] 07/18/2013 [facility] Cholecystectomy [id number] [facility] Assessment and Plan Assessment and Plan Date Source Extracted from:Title: Clinical Document Author: Jose Huynh MD Date: [...] Family/ Social History Medical history: Active Seizure ([id number]) Diabetes mellitus (576882500) Resolved Leukemia ([id number]): Resolved., Reviewed as documented in chart. Surgical history: Gallbladder stone removal ([id number]) on 07/18/2013 at 32 Years. Cholecystectomy ([id number])., Reviewed as documented in chart. Family history: Not significant. Social history: Social and Psychosocial Habits Tobacco 09/13/2019 Use: Never smoker [...] Goetz his neurologist in one week Extracted from:Title: Progress Note Author: Ofe Blackman MD Date: 09/14/19 1.Seizure(R56.9) 2.DM2 (diabetes mellitus, type 2)(E11.9) 3.Hypothyroidism(E03.9) 4.Depression(F32.9) Plan Please see HPI for more detail Neurology has been consulted Medications reviewed and continue provide symptomatic care [facility] Home Extracted from:Title: History and Physical Author: Betty Blanco MD [...] 4.Depression(F32.9) Continue aripiprazole Ambulate Home when stable 09/15/2019 [facility] Extracted from:Title: Liaison Note Author: Xiao Bunn Date: 11/15/14 [...] no item found. Xiao Bunn Patient Liaison [id number] 11/15/2014 [facility] Extracted from:Title: Clinical Document Author: Neto Snyder MD Date: [...] of subdural drain. SURGEON: Neto Snyder M.D. CAR SALTER: Sammy Mccauley M.D., Michael To M.D. ANESTHESIA: [...] parallel to the floor on a horseshoe head girls golf coach with the RIGHT side up. The thorax [...] Self-retaining retractors were placed and a cranial canary raiser were used to create the bur hole. [...] the procedure and available for all others. 11/07/2014 [facility] Plan of Care No Data Provided for This Section Social History Social History Date Source Social History TypeResponse Smoking Status Never smoker; Exposure to Tobacco Smoke None; Cigarette Smoking Last 365 Days No; Reg Smoking Cessation Counseling No entered on: 09/16/19 09/16/[address] [facility] Social History TypeResponse Smoking Status Never smoker; Exposure to Tobacco Smoke None; Cigarette Smoking Last 365 Days No; Reg Smoking Cessation Counseling No 07/07/2015 [facility] Social History TypeResponse Smoking Status Never smoker; Exposure to Tobacco Smoke None; Cigarette Smoking Last 365 Days No; Reg Smoking Cessation Counseling No 01/17/2015 [facility] Family History No Data Provided for This Section Advance Directives No Data Provided for This Section Functional Status No Data Provided for This Section
--- OUTSIDE RECORDS SUMMARY | 2019-09-22 14:43 | XMS REPORT | Summary of Care ---
Author Author [facility] Organization [facility] Address Unknown Phone Unavailable Encounter IMANI Farooq(KARLA) [id number] Date(s): 01/16/15 - 01/17/15 [facility] [address] [employer] provided by [facility] [employer] [facility] [place] [address]- Discharge Disposition: DC/TF To Psych Hosp Attending Physician: Christian Tate DO Vital Signs 1 2 3 Most recent to oldest [Reference Range]: 162.56 cm (01/16/15 5:10 PM) Height 1 2 3 Most recent to oldest [Reference Range]: 98 DegF (01/17/15 6:05 AM) 97 DegF (01/17/15 3:50 AM) 97 DegF (01/17/15 2:00 AM) Temperature Oral [96.4-99.1 DegF] 1 2 3 Most recent to oldest [Reference Range]: 119/70 mmHg (01/17/15 7:50 AM) 108/72 mmHg (01/17/15 6:05 AM) 110/62 mmHg (01/17/15 5:30 AM) Blood Pressure [90-140/60-90 mmHg] 1 2 3 Most recent to oldest [Reference Range]: 18 BRMIN (01/17/15 7:50 AM) 17 BRMIN (01/17/15 6:05 AM) 17 BRMIN (01/17/15 3:50 AM) Respiratory Rate [14-20 BRMIN] 1 2 3 Most recent to oldest [Reference Range]: 79 bpm (01/17/15 7:50 AM) 70 bpm (01/17/15 6:05 AM) 72 bpm (01/17/15 3:50 AM) Peripheral Pulse Rate [60-100 bpm] 1 2 3 Most recent to oldest [Reference Range]: 68.182 kg (01/16/15 5:10 PM) Weight 1 2 3 Most recent to oldest [Reference Range]: 25.8 m2 (01/16/15 5:10 PM) Body Mass Index Problem List Condition Effective Dates Status Health Status Informan t Diabetes Active mellitus(Confirmed) Leukemia(Confirmed) Resolved Seizure(Confirmed) Active Allergies, Adverse Reactions, Alerts Substance Reaction Severity Status HYDROcodone-pseudoephedri Active ne simvastatin Active Medications Benadryl 25 mg, 0.5 mL, Route: IVP, Drug form: INJ, ONCE, Dosing Weight 68.182, kg, Prior ity: STAT, Start date: 01/16/15 21:54:00, Stop date: 01/16/15 21:54:00 Notes: (Same as: Benadryl) Start Date: 01/16/15 Stop Date: 01/16/15 Status: Completed NS (Bolus) IV 500 mL, 500 ml/hr, Infuse Over: 1 hr, Route: IV, 500, Drug form: INJ, ONCE, Prio rity: STAT, Dosing Weight 68.182 kg, Start date: 01/16/15 21:54:00, Duration: 1 doses or times, Stop date: 01/16/15 21:54:00 Start Date: 01/16/15 Stop Date: 01/16/15 Status: Completed Reglan 10 mg, 2 mL, Route: IVP, Drug form: INJ, ONCE, Dosing Weight 68.182, kg, Priorit y: STAT, Start date: 01/16/15 21:53:00, Stop date: 01/16/15 21:53:00 Notes: (Same as: Reglan) Start Date: 01/16/15 Stop Date: 01/16/15 Status: Completed Results ELECTROLYTES Most recent to 1 oldest [Reference Range]: Sodium Lvl [135-145 130 mEq/L mEq/L] *LOW* (01/16/15 10:36 PM) Potassium Lvl 4.7 mEq/L [3.5-5.1 mEq/L] (01/16/15 10:36 PM) Chloride Lvl [95-109 93 mEq/L mEq/L] *LOW* (01/16/15 10:36 PM) CO2 [24-32 mEq/L] 26 mEq/L (01/16/15 10:36 PM) AGAP [10.0-20.0 15.7 mEq/L mEq/L] (01/16/15 10:36 PM) CHEM PANEL Most recent to 1 oldest [Reference Range]: Creatinine Lvl 0.7 mg/dL [0.5-1.4 mg/dL] (01/16/15 10:36 PM) eGFR 124 mL/min/1.73m2 1 *NA* (01/16/15 10:36 PM) BUN [7-22 mg/dL] 9 mg/dL (01/16/15 10:36 PM) B/C Ratio [6-25] 13 (01/16/15 10:36 PM) Glucose Lvl [70-99 90 mg/dL mg/dL] (01/16/15 10:36 PM) Total Protein 8.3 g/dL [6.4-8.4 g/dL] (01/16/15 10:36 PM) Albumin Lvl [3.5-5.0 3.8 g/dL g/dL] (01/16/15 10:36 PM) Globulin [2.0-4.0 4.5 g/dL g/dL] *HI* (01/16/15 10:36 PM) A/G Ratio [0.7-1.6] 0.8 (01/16/15 10:36 PM) Calcium Lvl 9.0 mg/dL [8.5-10.5 mg/dL] (01/16/15 10:36 PM) ALT [0-65 unit/L] 66 unit/L *HI* (01/16/15 10:36 PM) AST [0-37 unit/L] 62 unit/L *HI* (01/16/15 10:36 PM) Alk Phos [39-136 76 unit/L unit/L] (01/16/15 10:36 PM) Bili Total [0.2-1.3 0.4 mg/dL mg/dL] (01/16/15 10:36 PM) 1Result Comment: The eGFR is calculated [...] be mul tiplied by the estimated BMI. DRUG SCREEN Most recent to 1 oldest [Reference Range]: U Amph Scr Negative [Negative] *NA* (01/16/15 11:05 PM) U Raisa Scr Negative [Negative] *NA* (01/16/15 11:05 PM) U Benzodia Scr Negative [Negative] *NA* (01/16/15 11:05 PM) U Cocaine Scr Negative [Negative] *NA* (01/16/15 11:05 PM) U Opiate Scr Negative [Negative] *NA* (01/16/15 11:05 PM) U Phencyc Scr Negative [Negative] *NA* (01/16/15 11:05 PM) U Cannab Scr Negative [Negative] *NA* (01/16/15 11:05 PM) UDS Note See Note *NA* (01/16/15 11:05 PM) TOXICOLOGY Most recent to 1 oldest [Reference Range]: Acetaminoph Lvl <2 [10-20] (01/16/15 10:36 PM) Digoxin Lvl [0.8-2.0 0.6 ng/mL ng/mL] *LOW* (01/16/15 10:36 PM) Salicylate Lvl 1.6 mg/dL [0.0-30.0 mg/dL] (01/16/15 10:36 PM) Etoh (%) <.003 % *NA* (01/16/15 10:36 PM) Ethanol Lvl <3 mg/dL *NA* (01/16/15 10:36 PM) HEMATOLOGY Most recent to 1 oldest [Reference Range]: WBC [3.7-10.4 K/CMM] 8.7 K/CMM (01/16/15 10:36 PM) RBC [4.70-6.10 4.22 M/CMM M/CMM] *LOW* (01/16/15 10:36 PM) Hgb [14.0-18.0 g/dL] 13.2 g/dL *LOW* (01/16/15 10:36 PM) Hct [42.0-54.0 %] 38.7 % *LOW* (01/16/15 10:36 PM) MCV [80.0-94.0 fL] 91.7 fL (01/16/15 10:36 PM) MCH [27.0-31.0 pg] 31.2 pg *HI* (01/16/15 10:36 PM) MCHC [32.0-36.0 34.0 g/dL g/dL] (01/16/15 10:36 PM) RDW [11.5-14.5 %] 13.2 % (01/16/15 10:36 PM) Platelet [133-450 335 K/CMM K/CMM] (01/16/15 10:36 PM) MPV [7.4-10.4 fL] 7.1 fL *LOW* (01/16/15 10:36 PM) Segs [45.0-75.0 %] 54.2 % (01/16/15 10:36 PM) Lymphocytes 33.4 % [20.0-40.0 %] (01/16/15 10:36 PM) Monocytes [2.0-12.0 9.5 % %] (01/16/15 10:36 PM) Eosinophils [0.0-4.0 1.9 % %] (01/16/15 10:36 PM) Basophils [0.0-1.0 1.0 % %] (01/16/15 10:36 PM) Segs-Bands # 4.7 K/CMM [1.5-8.1 K/CMM] (01/16/15 10:36 PM) Lymphocytes # 2.9 K/CMM [1.0-5.5 K/CMM] (01/16/15 10:36 PM) Monocytes # [0.0-0.8 0.8 K/CMM K/CMM] (01/16/15 10:36 PM) Eosinophils # 0.2 K/CMM [0.0-0.5 K/CMM] (01/16/15 10:36 PM) Basophils # [0.0-0.2 0.1 K/CMM K/CMM] (01/16/15 10:36 PM) Immunizations Vaccine Date Refusal Reason pneumococcal 23-valent vaccine 11/14/14 Procedures Procedure Date Related Diagnosis Body Site Gallbladder stone removal 07/18/13 Cholecystectomy Social History Social History Type Response Smoking Status Never smoker; Exposure to T obacco Smoke None; Cigarette Smoking Last 365 Days No; Reg Smoking Cessation Counseli ng No Assessment and Plan No data available for this section
--- OUTSIDE RECORDS SUMMARY | 2019-09-22 14:43 | XMS REPORT | Summary of Care ---
Author Author [facility] Organization [facility] Address Unknown Phone Unavailable Encounter IMANI Farooq(KARLA) [id number] Date(s): 07/07/15 - 07/07/15 [facility] [address] [place] [address]- Discharge Diagnosis: Upper abdominal pain, unspecified Discharge Disposition: Home Attending Physician: George Fierro MD Vital Signs 1 2 3 Most recent to oldest [Reference Range]: 97.9 DegF (07/07/15 7:01 AM) 97.7 DegF (07/07/15 6:25 AM) Temperature Oral [96.4-99.1 DegF] 98/66 mmHg (07/07/15 7:51 AM) 114/83 mmHg (07/07/15 7:01 AM) 98/62 mmHg (07/07/15 6:25 AM) Blood Pressure [90-140/60-90 mmHg] 18 BRMIN (07/07/15 7:51 AM) 18 BRMIN (07/07/15 7:01 AM) 20 BRMIN (07/07/15 6:25 AM) Respiratory Rate [14-20 BRMIN] 80 bpm (07/07/15 7:51 AM) 83 bpm (07/07/15 7:01 AM) 70 bpm (07/07/15 6:25 AM) Peripheral Pulse Rate [60-100 bpm] 72.727 kg (07/07/15 6:25 AM) Weight Problem List Condition Effective Dates Status Health Status Informan t Diabetes Active mellitus(Confirmed) Leukemia(Confirmed) Resolved Seizure(Confirmed) Active Allergies, Adverse Reactions, Alerts Substance Reaction Severity Status HYDROcodone-pseudoephedri Active ne simvastatin Active Medications morphine Sulfate 4 mg, Route: IVP, ONCE, Dosing Weight 72.727, kg, Priority: STAT, Start date: 6:44:00, Stop date: 07/07/15 6:44:00 Start Date: 07/07/15 Stop Date: 07/07/15 Status: Completed omeprazole 20 mg oral enteric coated tablet 20 mg = 1 tab, PO, BID, # 30 tab, 0 Refill(s) Start Date: 07/07/15 Status: Ordered ondansetron 4 mg, 2 mL, Route: IVP, Drug form: INJ, ONCE, Dosing Weight 72.727, kg, Priority : STAT, Start date: 07/07/15 6:44:00, Stop date: 07/07/15 6:44:00 Notes: (Same as: Zofran) MEDICATION WASTE Product Size: 4 mgProduct Was sourav: ___ mg Start Date: 07/07/15 Stop Date: 07/07/15 Status: Completed Saline Flush 0.9% 10 mL, Route: IVP, Drug Form: INJ, Dosing Weight 72.727, kg, PRN, PRN Line Flush , Start date: 07/07/15 6:44:00, Duration: 30 day, Stop date: 08/06/15 6:43:00 Notes: (Same as: BD Posiflush) Start Date: 07/07/15 Stop Date: 07/07/15 Status: Discontinued Sodium Chloride 0.9% (Bolus) IV 1,000 mL, 1000 ml/hr, Infuse Over: 1 hr, Route: IV, 1,000, Drug form: INJ, ONCE, Priority: STAT, Dosing Weight 72.727 kg, Start date: 07/07/15 6:44:00, Duration: 1 doses or times, Stop date: 07/07/15 6:44:00 Start Date: 07/07/15 Stop Date: 07/07/15 Status: Completed Results ELECTROLYTES Most recent to 1 oldest [Reference Range]: Sodium Lvl [135-145 132 mEq/L mEq/L] *LOW* (07/07/15 6:54 AM) Potassium Lvl 3.9 mEq/L [3.5-5.1 mEq/L] (07/07/15 6:54 AM) Chloride Lvl [95-109 96 mEq/L mEq/L] (07/07/15 6:54 AM) CO2 [24-32 mEq/L] 30 mEq/L (07/07/15 6:54 AM) AGAP [10.0-20.0 9.9 mEq/L mEq/L] *LOW* (07/07/15 6:54 AM) CHEM PANEL Most recent to 1 oldest [Reference Range]: Creatinine Lvl 0.63 mg/dL [0.50-1.40 mg/dL] (07/07/15 6:54 AM) eGFR 130 mL/min/1.73m2 1 *NA* (07/07/15 6:54 AM) BUN [7-22 mg/dL] 6 mg/dL *LOW* (07/07/15 6:54 AM) Glucose Lvl [70-99 101 mg/dL mg/dL] *HI* (07/07/15 6:54 AM) Total Protein 7.7 g/dL [6.4-8.4 g/dL] (07/07/15 6:54 AM) Albumin Lvl [3.5-5.0 3.7 g/dL g/dL] (07/07/15 6:54 AM) Globulin [2.0-4.0 4.0 g/dL g/dL] (07/07/15 6:54 AM) A/G Ratio [0.7-1.6] 0.9 (07/07/15 6:54 AM) Calcium Lvl 8.9 mg/dL [8.5-10.5 mg/dL] (07/07/15 6:54 AM) ALT [0-65 unit/L] 89 unit/L *HI* (07/07/15 6:54 AM) AST [0-37 unit/L] 90 unit/L *HI* (07/07/15 6:54 AM) Alk Phos [39-136 62 unit/L unit/L] (07/07/15 6:54 AM) Bili Total [0.2-1.3 0.3 mg/dL mg/dL] (07/07/15 6:54 AM) Bili Direct [0.0-0.3 0.1 mg/dL mg/dL] (07/07/15 6:54 AM) Bili Indirect 0.2 mg/dL [0.0-1.0 mg/dL] (07/07/15 6:54 AM) Lipase Lvl [73-393 136 unit/L unit/L] (07/07/15 6:54 AM) 1Result Comment: The eGFR is calculated [...] be mul tiplied by the estimated BMI. URINE AND STOOL Most recent to 1 oldest [Reference Range]: UA Turbidity [Clear] Clear (07/07/15 7:22 AM) UA Color [Yellow] Yellow *NA* (07/07/15 7:22 AM) UA pH [5.0-8.0] 7.5 (07/07/15 7:22 AM) UA Spec Grav 1.015 [<=1.030] (07/07/15 7:22 AM) UA Glucose [Negative Negative mg/dL mg/dL] (07/07/15 7:22 AM) UA Blood [Negative] Negative (07/07/15 7:22 AM) UA Ketones [Negative Negative mg/dL mg/dL] *NA* (07/07/15 7:22 AM) UA Protein [Negative Negative mg/dL mg/dL] (07/07/15 7:22 AM) UA Urobilinogen 0.2 EU/dL [0.1-1.0 EU/dL] (07/07/15 7:22 AM) UA Bili [Negative] Negative *NA* (07/07/15 7:22 AM) UA Leuk Est Negative [Negative] (07/07/15 7:22 AM) UA Nitrite Negative [Negative] (07/07/15 7:22 AM) UA Sq Epi [Few /LPF] Occasional /LPF (07/07/15 7:22 AM) Micro? Performed (07/07/15 7:22 AM) HEMATOLOGY Most recent to 1 oldest [Reference Range]: WBC [3.7-10.4 K/CMM] 6.8 K/CMM (07/07/15 6:54 AM) RBC [4.70-6.10 4.04 M/CMM M/CMM] *LOW* (07/07/15 6:54 AM) Hgb [14.0-18.0 g/dL] 12.7 g/dL *LOW* (07/07/15 6:54 AM) Hct [42.0-54.0 %] 38.4 % *LOW* (07/07/15 6:54 AM) MCV [80.0-94.0 fL] 95.0 fL *HI* (07/07/15 6:54 AM) MCH [27.0-31.0 pg] 31.4 pg *HI* (07/07/15 6:54 AM) MCHC [32.0-36.0 33.1 g/dL g/dL] (07/07/15 6:54 AM) RDW [11.5-14.5 %] 14.1 % (07/07/15 6:54 AM) Platelet [133-450 342 K/CMM K/CMM] (07/07/15 6:54 AM) MPV [7.4-10.4 fL] 7.0 fL *LOW* (07/07/15 6:54 AM) Segs [45.0-75.0 %] 44.4 % *LOW* (07/07/15 6:54 AM) Lymphocytes 41.7 % [20.0-40.0 %] *HI* (07/07/15 6:54 AM) Monocytes [2.0-12.0 9.5 % %] (07/07/15 6:54 AM) Eosinophils [0.0-4.0 3.1 % %] (07/07/15 6:54 AM) Basophils [0.0-1.0 1.3 % %] *HI* (07/07/15 6:54 AM) Segs-Bands # 3.0 K/CMM [1.5-8.1 K/CMM] (07/07/15 6:54 AM) Lymphocytes # 2.8 K/CMM [1.0-5.5 K/CMM] (07/07/15 6:54 AM) Monocytes # [0.0-0.8 0.6 K/CMM K/CMM] (07/07/15 6:54 AM) Eosinophils # 0.2 K/CMM [0.0-0.5 K/CMM] (07/07/15 6:54 AM) Basophils # [0.0-0.2 0.1 K/CMM K/CMM] (07/07/15 6:54 AM) Immunizations Vaccine Date Refusal Reason pneumococcal 23-valent [...]
--- OUTSIDE RECORDS SUMMARY | 2019-09-22 14:45 | XMS REPORT | Continuity of Care Document ---
Author Author [facility] t Organization [facility] Address [address] [place] [address] Phone Unavailable Care Team Providers Care Retail Worker Name Role Phone YANG HOUGH PCP Leonard Cueavs Attphys Shy Blackman Attphys Lalo WEN Attphys Unavailable Petros HymanRigo Dietrich Attphys Marquez Fierro Attphys Marcos Tate Attphys Sharon Snyder Attphys Leidy cSott II Attphys Lizzy Whiting Attphys Jeremy Bentley Attphys Lawson Manriquez Attphys Bola Irby Attphys Vin Blanco Admphys Sharon Snyder Admphys Emily Grider Admphys Payers Payer Name Policy Type Policy Number Effective Date Expiration Date Lalo spaulding [facility] [id number] 2017 00:00 :00 [facility] Advantage [id number] [facility] Problems Condition Name Condition Details Condition Category Status Onset Date Resolution Date Last Treatment Date Treating Clinician Comments Source DIZZINESS DIZZ INESS Active 09/16/2019 [facility] Active 2019-09-16 00:00:00 2019-09-17 04:01:00 [facility] SEIZURES SEIZ URES Active 09/13/2019 [facility] Diagnosis Active 2019-09-13 00:00:00 2019-09-13 23:09:00 [facility] SEIZURE SEIZ URE Active 09/13/2019 [facility] Diagnosis Active 2019-09-13 00:00:00 2019-09-18 18:50:00 [facility] SYNCOPE SYNC OPE Active 05/02/2018 [facility] Diagnosis Active 2018-05-02 00:00:00 2018-05-02 10:56:00 [facility] Seizure disorder Seizure disorder Problem Active 2015-11-24 00:00:00 [facility] ABDOMINAL PAIN ABDO BABITA PAIN Active 07/07/2015 [facility] Diagnosis Active 2015-07-07 00:00:00 2015-06 22:09:00 [facility] SUICIDAL SUIC IDAL Active 01/16/2015 [facility] Diagnosis Active 2015-01-16 00:00:00 2015-01-21 21:54:00 [facility] SDH S/P FALL SDH S/P FALL Active 11/22/2014 [facility] Diagnosis Active 2014-11-22 00:00:00 2014-11-28 15:40:00 [facility] SZ, HYPONATREMIA SZ, HYPONATREMIA Active 11/11/2014 [facility] Diagnosis Active 2014-11-11 00:00:00 2014-11-20 2 1:55:00 [facility] SUBDURAL HEMTOMA, S/P FALL SUB DURAL HEMTOMA, S/P FALL Active 11/11/2014 [facility] Diagnosis Active 2014-11-11 00 :00:00 2014-11-11 14:34:00 [facility] SDH SDH Active 11/03/2014 [facility] Diagnosis Active 2014-11-03 00:00:00 2014-11-08 14:42:00 [facility] HEADACHE HEAD ACHE Active 11/03/2014 [facility] Active 2014-11-03 00:00:00 2014-11-03 17:16:00 [facility] Sandeep LFLT TRANSFER#[id number] LFLT TRANSFER#[id number] Active 11/03/2014 [facility] Diagnosis Active 2014-11-03 00:00:00 2014-11-03 19:57:00 [facility] OTHER OTHE R Active 06/24/2014 [facility] Active 2014-06-24 00:00:00 2014-06-24 19:37:00 [facility] Insomnia, unspecified Insomnia, unspecified Disease Active 200 12-23-23 00:00:00 [facility] LBP (low back pain) LBP (low back pain) Disease Active 2008-10-09 00:00 :00 [facility] Cervical pain Cervical pain Disease Active 2008-10-09 00:00:00 [facility] Anxiety, depression Anxiety, depression Disease Active 2008-09-24 00:00 :00 [facility] Anemia, unspecified Anemia, unspecified Disease Active 2008-08-27 00:00 :00 Overview: Normal ferritin and iron studies, possibly m edication related [facility] Unspecified hearing loss Unspecified hearing loss Disease Acti ve 2008-08-27 00:00:00 [facility] Headache, migraine Headache, migraine Disease Active 2007-03-07 00:00:0 0 [facility] Hyperlipidemia Hyperlipidemia Disease Active 2007-03-07 00:00:00 Overview: Patient says he has prescription for cholesterol medication that he is getting from [facility], did not know name [facility] Tachycardia Tachycardia Disease Active Overview: on digoxin for this, has normal echo, carries diagnosis of adriamycin induced cardiac damage from Breanne José, no supporting documentation [facility] Suicidal ideation Suicidal ideation Disease Active [facility] Insulin overdose Insulin overdose Disease Active [facility] Severe episode of recurrent major depres sive disorder, 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, without psychotic features Disease Active [facility] Headache Head ache 11/19/2018 [facility] Problem 2018-11-19 13:25:01 [facility] Low back pain Low back pain 11/19/2018 [facility] Problem 2018-11-19 13:25:01 [facility] Unspecified fall, initial encounter Unspecified fall, initial encounter 11/19/2018 [facility] Problem 2018-0 8-04 13:25:01 Mariajose Hopkins Type 2 diabetes mellitus without complications Type 2 diabetes mellitus without complications 11/19/2018 [facility] Problem 2018-11-19 13:25:01 Mariajose Sandeep Epilepsy, unspecified, not intractable, without status epilepticus Epilepsy, unspecified, not intractable, without status epilepticus 11/19/2018 [facility] Problem 2018-11-19 13:25:01 Mariajose Hopkins Other usp (current) drug therapy Other usp (current) drug therapy 11/19/2018 [facility] Problem 2018-11-19 13:25:01 Mariajose Raeann Acquired absence of other specified parts of digestive tract Acquired absence of other specified parts of digestive tract 11/19/2018 [facility] Problem 2018-11-19 13:25:01 Nv harpreet Hopkins Leukemia, disease (disorder) L eukemia, disease (disorder) Resolved Problem 09/18/2019 [facility] Problem Resolved 2019-09-18 21:19:45 Rohith Hopkins Diabetes mellitus (disorder) D iabetes mellitus (disorder) Active Problem 09/18/2019 [facility] Problem Active 2019-09-18 21:19:45 Boom Hopkins Seizure (finding) Seiz ure (finding) Active Problem 09/18/2019 [facility] Problem Active 2019-09-18 21:19:45 Mariajose Hopkins Depressive disorder (disorder) Depressive disorder (disorder) Active Problem 09/18/2019 [facility] Problem Active 2019-09-18 21:19:45 Mariajose Hopkins Hypothyroidism (disorder) Hypo thyroidism (disorder) Active Problem 09/18/2019 [facility] Problem Active 2019-09-18 21:1 9:45 Mariajose Hopkins Diabetes mellitus type 2 (disorder) Diabetes mellitus type 2 (disorder) Active Problem 09/18/2019 [facility] Problem Active 2019-09-18 21:19:45 Mariajose Hopkins SUBDURAL HEMORRHAGE SUBD URAL HEMORRHAGE Active [facility] Diagnosis Active 2014-11-08 14:42:00 Mariajose Hopkins CONVULSIONS NEC CONV ULSIONS NEC Active [facility] Diagnosis Active 2014-11-20 21:55:00 N[facility] morial [place] ABN BLOOD CHEMISTRY NEC ABN BLOOD CHEMISTRY NEC Active [facility] Diagnosis Active 2014-11-20 21:55:00 Mariajose Raeann FEBRILE CONVULSIONS NOS FEBR ILE CONVULSIONS NOS Active [facility] Diagnosis Active 2014-11-28 15:40:00 Mariajose Sandeep UNSPECIFIED CONVULSIONS UNSP ECIFIED CONVULSIONS Active [facility] Diagnosis Active 2019-09-18 18:50:00 Mariajose Hopkins Dizziness and giddiness Dizz iness and giddiness 09/16/2019 09/18/2019 [facility] Problem 2019-09-16 17:00:00 2019 21:19:45 2019-09-18 21:19:45 [facility] Sande[facility] Type 2 diabetes mellitus with hyperglycemia Type 2 diabetes mellitus with hyperglycemia 09/16/2019 09/18/2019 [facility] Problem 2019-09-16 17:00:00 2019-09-18 21:19:45 2019-09-18 21:19:45 Mariajose Hopkins Syncope and collapse Sync ope and collapse 05/02/2018 11/19/2018 [facility] Problem 2018-05-02 06:00:00 2018-11-19 13:2 5:01 2018-11-19 13:25:01 [facility] [place] Discharge Diagnosis: Upper abdominal pain, unspecified Discharge Diagnosis: Upper abdominal pain, unspecified 07/07/2015 07/10/2015 [facility] Problem 2015-07-07 05:00:00 2015-07-10 03:17:19 2015-06 03:17:19 [facility] Dis[facility] Diagnosis: Headache Discharge Diagnosis: Headache 11/02/2014 11/05/2014 [facility] Problem 11-02 05:00:00 2014-11-05 00:57:39 2014-11-05 00:57:39 [facility] [place] Discharge Diagnosis: Gastritis Discharge Diagnosis: Gastritis 06/24/2014 06/27/2014 [facility] Problem 2014 05:00:00 2014-06-27 01:43:21 2014-06-27 01:43:21 [facility] [place] Discharge Diagnosis: Nausea & vomiting Discharge Diagnosis: Nausea & vomiting 06/24/2014 06/27/2014 [facility] Problem 2014-06-24 05:00:00 2014-06-27 01:43:21 2014-06-27 01:43:21 [facility] Allergies, Adverse Reactions, Alerts Allergy Name Allergy Type Status Severity Reaction(s) Onset Date Inacti ve Date Treating Clinician Comments Source lisinopril DA Active U 2019-06-01 00:00:00 [facility] hydrocodone DA Active ID 2019-06-01 00:00:00 [facility] simvastatin DA Active U 2019-06-01 00:00:00 [facility] lisinopril DA Active U 2019-04-20 00:00:00 [facility] hydrocodone DA Active ID 2019-04-20 00:00:00 [facility] simvastatin DA Active U 2019-04-20 00:00:00 [facility] lisinopril DA Active U 2019-02-10 00:00:00 [facility] hydrocodone DA Active ID 2019-02-10 00:00:00 [facility] simvastatin DA Active U 2019-02-10 00:00:00 [facility] lisinopril DA Active U 2018-05-05 00:00:00 [facility] hydrocodone DA Active ID 2018-05-05 00:00:00 [facility] simvastatin DA Active U 2018-05-05 00:00:00 [facility] Hydrocodone Allergy to Substance Active Dizziness 2018-05-03 00:00 :00 [facility] lisinopril DA Active U 2018-04-27 00:00:00 [facility] hydrocodone DA Active ID 2018-04-27 00:00:00 [facility] simvastatin DA Active U 2018-04-27 00:00:00 [facility] lisinopril DA Active U 2018-04-13 00:00:00 [facility] hydrocodone DA Active ID 2018-04-13 00:00:00 [facility] simvastatin DA Active U 2018-04-13 00:00:00 [facility] lisinopril DA Active U 2018-04-07 00:00:00 [facility] hydrocodone DA Active ID 2018-04-07 00:00:00 [facility] simvastatin DA Active U 2018-04-07 00:00:00 [facility] lisinopril DA Active U 2018-01-05 00:00:00 [facility] hydrocodone DA Active ID 2018-01-05 00:00:00 [facility] simvastatin DA Active U 2018-01-05 00:00:00 [facility] lisinopril DA Active U 2017-11-28 00:00:00 [facility] hydrocodone DA Active ID 2017-11-28 00:00:00 [facility] simvastatin DA Active U 2017-11-28 00:00:00 [facility] HYDROcodone-pseudoephedrine HYDROcodone-pseudoephedrine Active [facility] metFORMIN metFORMIN Active [facility] Family Member Diagnosis Comments Start Date Stop Date Source Natural father Diabetes [facility] Social History Social Habit Start Date Stop Date Quantity Comments Source Sex Assigned At [facility] Alcohol intake 2016-11-05 00:00:00 2016-11-05 00:00:00 [facility] Smoking Status Start Date Stop Date Source Social History [facility] Sande[facility] Medications Ordered Medication Name Filled Medication Name Start Date Stop Da te Current Medication? Ordering Clinician Indication Dosage Frequency Signature (SIG) Comments Components Source Sodium Chloride 0.9% (Bolus) IV 2019-09-16 16:57:00 No 1,000 mL, 1000 ml/hr, Infuse Over: 1 hr, Route: IV, 1,000, Drug form: INJ, ONCE, Priority: STAT, Dosing Weight 68.182 kg, Start date: 09/16/19 11:57:00 CDT, Stop date: 09/16/19 11:57:00 CDT, 0 Mariajose weeks ARIPiprazole 2019-09-15 02:00:00 No Notes: (Same as: Tin) Mariajose Hopkins Dicyclomine 2019-09-15 02:00:00 No Notes: ( Same as: Aleja) Mariajose Hopkins Levetiracetam 500 MG Oral Tablet 2019-09-14 23:49:00 Yes 1,000 mg = 2 tab, PO, BID, # 120 tab, 0 Refill(s) Charmaine Hopkins Levetiracetam 500 MG Oral Tablet 2019-09-14 17:09:00 Yes 1,000 mg = 2 tab, PO, Q12H, # 16 tab, 0 Refill(s), Pharmacy: [id number] Levetiracetam 2019-09-14 14:00:00 No Notes: (Same as:Keppra) [facility] Digoxin 2019-09-14 14:00:00 No Notes: Take on an Empty Stomach (Same as: Lanoxin) [facility] 24 HR Divalproex Sodium 500 MG Extended Release Tablet 2019-09-14 14:00:00 No Notes: [facility]:Non-antineoplastic Hazard[facility] Drug -- Refer to safe handling procedure PPE Matrix (Same as: Depakote ER) (Do Not Crush) [facility] venlafaxine 2019-09-14 14:00:00 No Notes: Do not crush, or chew. Contents of capsule may be sprinkled on a spoonful of applesauce and swallowed immediately without chewing; followed with a glass of water to ensure complete swallowing of the pellets. (Same As: Effexor XR) [facility] Thyroxine 2019-09-14 11:30:00 No Notes: Take 1 hour before or 2 hours after meal; Enteral feeds may interefere with the absorption of this medication. (Same as:Levothroid) Eloise waldron [place] Dextrose 50% Syringe (D50W) 2019-09-14 09:22:00 No 12.5 gm, 25 mL, Route: IVP, Drug Form: INJ, Dosing Weight 63.636, kg, PRN, PRN Blood Glucose Results, Start date: 09/14/19 4:22:00 CDT, Duration: 30 day, Stop date: 10/14/19 4:21:00 CDT, 0 [facility] Glucagon 2019-09-14 09:22:00 No 1 mg, Route: IM, Drug form: PDR/INJ, PRN, Dosing Weight 63.636, kg, PRN Blood Glucose Results, Start date: 09/14/19 4:22:00 CDT, Duration: 30 day, Stop date: 10/14/19 4:21:00 CDT, 0 [facility] Insulin Lispro 2019-09-14 09:22:00 No Notes: (Same as: Humalog) Roll in palms of hands gently; Do not shake vigorously. WASTE: F/P - Black; E - Municipal Trash Bin Stable for 28 days at room temperature. Expires in days from Date Mariajose jacobs Amber 2019-09-14 09:20:00 No Notes: (Sa me as: Antivert) Mariajose Raeann Metformin hydrochloride 500 MG Oral Tablet 2019-09-14 08:39:00 Yes 1,000 mg = 2 tab, PO, BID, 0 Refill(s) [facility] Thyroxine 2019-09-14 08:39:00 Yes 25 microgram, PO, Daily, 0 Refill(s) Mariajose Sandeep ARIPiprazole 5 mg oral tablet 2019-09-14 08:39:00 Yes 5 mg = 1 tab, PO, Bedtime, 0 Refill(s) Mariajose Ledezma n perampanel 2 MG Oral Tablet [FYCOMPA] 2019-09-14 08:39:00 Y es 2 mg = 1 tab, PO, Bedtime, 0 Refill(s) Memoria chivo Hopkins venlafaxine 150 mg oral capsule, extended release 2019-09-14 08:39:00 Yes 150 mg = 1 cap, PO, Daily, # 30 cap, 0 Refill(s ) Mariajose Raeann loperamide 2 mg oral capsule 2019-09-14 08:39:00 No 2 mg = 1 cap, PO, TID, PRN loose stools, # 60 cap, 0 Refill(s) Mariajose Raeann Dextrose 50% Syringe (D50W) 2019-09-14 07:19:00 No 12.5 gm, 25 mL, Route: IVP, Drug Form: INJ, Dosing Weight 63.636, kg, PRN, PRN Blood Glucose Results, Start date: 09/14/19 2:19:00 CDT, Duration: 30 day, Stop date: 10/14/19 2:18:00 CDT, 0 Mariajose Raeann Glucagon 2019-09-14 07:19:00 No 1 mg, Route: IM, Drug form: PDR/INJ, PRN, Dosing Weight 63.636, kg, PRN Blood Glucose Results, Start date: 09/14/19 2:19:00 CDT, Duration: 30 day, Stop date: 10/14/19 2:18:00 CDT, 0 Mariajose Raeann Acetaminophen 2019-09-14 07:19:00 No Notes: Do not exceed 4 gm/day. (Same as: Tylenol) [facility] Keppra 2019-09-14 04:39:00 No Notes: Same as [facility] Mix with 100 mL NS, LR or D5W MEDICATION WASTE Product Size: 500 mg Product Wasted: ___ mg [facility] Metoclopramide 2019-09-14 03:53:00 No 10 mg, Route: IVP, Drug form: INJ, ONCE, Dosing Weight 63.636, kg, Priority: STAT, Start date: 09/13/19 22:53:00 CDT, Stop date: 09/13/19 22:53:00 CDT [facility] Diphenhydramine 2019-09-14 03:53:00 No 25 mg, Route: IVP, ONCE, Dosing Weight 63.636, kg, Priority: STAT, Start date: 09/13/19 22:53:00 CDT, Stop date: 09/13/19 22:53:00 CDT [facility] Sodium Chloride 0.9% (Bolus) IV 2019-09-14 03:44:00 No 1,000 mL, Infuse Over: 1 hr, Route: IV, ONCE, Priority: STAT, Dosing Weight 63.636 kg, Start date: 09/13/19 22:44:00 CDT, Stop date: 09/13/19 22:44:00 CDT [facility] Tylenol 2018-05-02 16:22:00 No Notes: Max acetaminophen 4000 mg/day (4 gm/day). 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 [facility] insulin lispro, Human, (HUMALOG) 100 unit/mL pen 2016-10-14 00:37:35 Yes Inject under the skin once. [facility] omeprazole 20 mg oral enteric coated tablet 2015-07-07 13:12:00 Yes 20 mg = 1 tab, PO, BID, # 30 tab, 0 Refill(s) Mariajose Hopkins Morphine 2015-07-07 11:44:00 No 4 mg, Route: IVP, ONCE, Dosing Weight 72.727, kg, Priority: STAT, Start date: 07/07/15 6:44:00, Stop date: 07/07/15 6:44:00 Mariajose [place] Ondansetron 2015-07-07 11:44:00 No Notes: (Same as: Kristie) MEDICATION WASTE Product Size: 4 mg Product Wasted: ___ mg [facility] Saline Flush 0.9% 2015-07-07 11:44:00 No Notes: (Same as: BD Posiflush) [facility] Sodium Chloride 0.154 MEQ/ML Injectable Solution 2015-07-07 11:4 4:00 No 1,000 mL, 1000 ml/hr, Infuse Over: 1 hr, Route: IV, 1,000, Drug form: INJ, ONCE, Priority: STAT, Dosing Weight 72.727 kg, Start date: 07/07/15 6:44:00, Duration: 1 doses or times, Stop date: 07/07/15 6:44:00 Mariajose Hopkins Benadryl 2015-01-17 02:54:00 No Notes: (Graeme e as: Benadryl) [facility] Sodium Chloride 0.154 MEQ/ML Injectable Solution 2015-01-17 02:5 4:00 No 500 mL, 500 ml/hr, Infuse Ov er: 1 hr, Route: IV, 500, Drug form: INJ, ONCE, Priority: STAT, Dosing Weight 68.182 kg, Start date: 01/16/15 21:54:00, Duration: 1 doses or times, Stop date: 01/16/15 21:54:00 Mariajose Hopkins Reglan 2015-01-17 02:53:00 No Notes: (Same as: Reglan) [facility] tramadol hydrochloride 50 MG Oral Tablet 2014-11-24 14:30:45 Yes 50 mg = 1 tab, PO, Q6H, PRN Pain, X 10 day, # 40 tab, 0 Refill(s) [facility] 24 HR Divalproex Sodium 500 MG Extended Release Tablet 2014-11-24 14:00:00 No Notes: (Same as : Depakote ER) Once daily dosing; indicated for migraines. Divalproex sodium extended-release tab. Do not chew or crush. "Do Not Crush" [facility] Digoxin 2014-11-24 14:00:00 No Notes: Take on an Empty Stomach (Same as: Lanoxin) [facility] Citalopram 2014-11-24 14:00:00 No Notes: (S ralph As: CeleXA) [facility] heparin 2014-11-24 14:00:00 No Notes: porci ne heparin [facility] Levetiracetam 500 MG Oral Tablet 2014-11-24 02:00:00 No Notes: (Same as:Zonia) [facility] Tramadol 2014-11-23 20:28:00 No Notes: Not to exceed 400mg/day. (Same As: Ultram) [facility] Requip 2014-11-23 18:00:00 No Notes: (Same as: Requip) [facility] Tylenol 2014-11-23 16:42:00 No Notes: Do not exceed 4 gm/day. (Same as: Tylenol) [facility] Keppra 2014-11-23 16:04:00 No Notes: (Same as:Brianra) [facility] Levetiracetam 2014-11-23 14:00:00 No Notes: (Same as:Zonia) [facility] pantoprazole 2014-11-23 12:30:00 No Notes: Tablet should not be chewed or crushed. (Same as: Protonix) Charmaine emoriranda [place] Saline Flush 0.9% 2014-11-23 02:00:00 No Notes: (Same as: BD Posiflush) [facility] Docusate 2014-11-23 02:00:00 No Notes: (Same as: Colace) (Do Not Crush) [facility] sennosides, [facility] 2014-11-23 02:00:00 No Notes: (Same as: Dada) [facility] Levetiracetam 1000 MG Oral Tablet [Keppra] 2014-11-23 00:23:00 No 1,000 mg, 1 tab, Route: PO, ONCE, Dosing Weight 70, kg, Start date: 11/22/14 19:23:00, Stop date: 11/22/14 19:23:00 [facility] Dextrose 50% Syringe 2014-11-23 00:20:00 No 6.25 gm, 12.5 mL, Route: IVP, Drug Form: INJ, Dosing Weight 70, kg, PRN, PRN Abnormal Lab Result, Start date: 11/22/14 19:20:00, Duration: 30 day, Stop date: 12/22/14 19:19:00 Mariajose Hopkins Regular Insulin, Human 100 UNT/ML Injectable Solution 2014-11-23 00:20:00 No 60 units) [address] able for 28 days at room temperature Expires in days from Date [facility] reynaldo Saline Flush 0.9% 2014-11-23 00:20:00 No Notes: (Same as: BD Posiflush) [facility] Ondansetron 2014-11-23 00:20:00 No Notes: (Same as: Kristie) MEDICATION WASTE Product Size: 4 mg Product Wasted: ___ mg [facility] Levetiracetam 2014-11-23 00:20:00 No Notes: Same as Wadeppra Mix with 100 mL NS, LR or D5W MEDICATION WASTE Product Size: 500 mg Product Wasted: ___ mg [facility] Sodium Chloride 0.154 MEQ/ML Injectable Solution 2014-11-23 00:2 0:00 No 1,000 mL, Rate: 100 ml/hr, I nfuse over: 10 hr, Route: IV, Dosing Weight 70 kg, Total Volume: 1,000, Start date: 11/22/14 19:20:00, Duration: 30 day, Stop date: 12/22/14 19:19:00 [facility] tramadol hydrochloride 50 MG Oral Tablet 2014-11-15 21:50:00 Yes 50 mg = 1 tab, PO, Q6H, PRN Pain, X 10 day, # 40 tab, 0 Refill(s) Mariajose [place] senna 8.6 mg oral tablet 2014-11-15 21:50:00 Yes 8.6 mg = 1 tab, PO, Q12H, X 10 day, # 20 tab, 0 Refill(s) Charmaine Hopknis Levetiracetam 500 MG Oral Tablet 2014-11-15 21:50:00 Yes 1,000 mg = 2 tab, PO, Q12H, # 16 tab, 0 [facility]ill[facility] mg oral capsule 2014-11-15 21:50:00 Yes 100 mg = 1 cap, PO, Q12H, # 20 cap, 0 Refill(s) Mariajose [place] 24 HR Divalproex Sodium 500 MG Extended Release Tablet 2014-11-15 17:10:00 Yes 1,500 mg = 3 tab, PO, Daily, 0 Refill(s) [facility] pantoprazole 40 MG Enteric Coated Tablet [Protonix] 11-15 17:10:00 Yes 40 mg = 1 tab, PO, Daily, # 30 tab, 0 Re fill(s) [facility] pneumococcal capsular polysaccharide typ e 1 vaccine / pneumococcal capsular polysaccharide type 10A vaccine / pneumococcal capsular polysaccharide type 11A vaccine / pneumococcal capsular polysaccharide type 12F vaccine / pneumococcal capsular polysacchar 2014-11-14 14:00:00 No Notes: (Same as: Pneumovax 23) [facility] heparin 2014-11-12 21:00:00 No Notes: porci ne heparin [facility] Flomax 2014-11-12 16:30:00 No Notes: (Same As: Flomax) [facility] Ibuprofen 2014-11-12 15:41:00 No Notes: (Same as: Motrin) "Do Not Crush" Give with food. [facility] Docusate 2014-11-12 14:00:00 No Notes: (Same as: Colace) (Do Not Crush) [facility] sennosides, [facility] 2014-11-12 14:00:00 No Notes: (Same as: Senokot) [facility] Divalproex Sodium 500 MG Enteric Coated Tablet 2014-11-12 13:00: 00 No Notes: (Same as: Depakote Delayed Releas e) Do not confuse with the extended- release tablet. Delayed absorption enteric coated tablet. Do not crush [facility] Sandeep Sodium Chloride 1000 MG Oral Tablet 2014-11-12 11:00:00 No 3 gm, 3 tab, Route: PO, Drug form: TAB, Q6H, Dosing Weight 61.8, kg, Start date: 11/12/14 6:00:00, Duration: 30 day, Stop date: 12/12/14 0:00:00 [facility] Sandeep magnesium sulfate 2014-11-12 09:00:00 No 2 gm, 50 mL, Route: IVPB, Drug form: INJ, Q2H, Start date: 11/12/14 4:00:00, Duration: 2 doses or times, Stop date: 11/12/14 6:00:00 [facility] Her egan Regular Insulin, Human 100 UNT/ML Injectable Solution 2014-11-12 03:28:00 No 60 units) St able for 28 days at room temperature Expires in days from Date [facility] Eddie jacobs Dextrose 50% Syringe 2014-11-12 03:28:00 No 6.25 gm, 12.5 mL, Route: IVP, Drug Form: INJ, Dosing Weight 61.8, kg, PRN, PRN Abnormal Lab Result, Start date: 11/11/14 22:28:00, Duration: 30 day, Stop date: 12/11/14 22:27:00 [facility] tramadol hydrochloride 50 MG Oral Tablet 2014-11-12 03:26:00 No Notes: Not to exceed 400mg/day. (Same As: Ultram) [facility] Saline Flush 0.9% 2014-11-12 02:00:00 No Notes: (Same as: BD Posiflush) [facility] Levetiracetam 2014-11-12 02:00:00 No Notes: (Same as:Keppra) [facility] Saline Flush 0.9% 2014-11-11 22:13:00 No Notes: (Same as: BD Posiflush) [facility] Sodium Chloride 0.154 MEQ/ML Injectable Solution 2014-11-11 22:1 3:00 No 1,000 mL, Rate: 100 ml/hr, I nfuse over: 10 hr, Route: IV, Dosing Weight 68.182 kg, Total Volume: 1,000, Start date: 11/11/14 17:13:00, Duration: 30 day, Stop date: 12/11/14 17:12:00 Mariajose turpin Levetiracetam 2014-11-11 22:13:00 No 1,000 mg, Route: IVPB, ONCE, Dosing Weight 68.182, kg, Start date: 11/11/14 17:13:00, Stop date: 11/11/14 17:13:00 Mariajose Hopkins Keppra 2014-11-11 22:07:00 No Notes: Same as Keppra Mix with 100 mL NS, LR or D5W MEDICATION WASTE Product Size: 500 mg Product Wasted: ___ mg Mariajose Raeann Sodium Chloride 1000 MG Oral Tablet 2014-11-07 16:54:00 Yes 3 gm = 3 tab, PO, Q6H, # 360 tab, 0 Refill(s) Nv harpreet Raeann tramadol hydrochloride 50 MG Oral Tablet 2014-11-07 16:50:00 Yes 50 mg = 1 tab, PO, Q6H, PRN Pain Score 4-6, X 30 day, # 120 tab, 0 Refill(s) Mariajose Raeann tamsulosin 0.4 mg oral capsule 2014-11-07 16:50:00 Yes 0.4 mg = 1 cap, PO, Daily, # 21 cap, 0 Refill(s) Nv harpreet Hopkins senna 8.6 mg oral tablet 2014-11-07 16:50:00 Yes 8.6 mg = 1 tab, PO, Q12H, X 5 day, # 10 tab, 0 Refill(s) Nv harpreet Hopkins docusate sodium 100 mg oral capsule 2014-11-07 16:50:00 Yes 100 mg = 1 cap, PO, Q12H, # 28 cap, 0 Refill(s) Mariajose Raeann Midodrine 2014-11-07 16:14:00 Yes 5 mg, PO, TID, 0 Refill(s) Mariajose Sandeep Lactulose 667 MG/ML Oral Solution 2014-11-07 16:14:00 Yes 10 gm = 15 mL, PO, Daily, 0 Refill(s) [facility] Her egan ropinirole 1 MG Oral Tablet [Requip] 2014-11-07 16:14:00 Ye s 1 mg = 1 tab, PO, TID, 0 Refill(s) Mariajose Her egan Citalopram 2014-11-07 16:14:00 Yes 4 0 mg, PO, Daily, 0 Refill(s) Mariajose Hopkins meclizine 12.5 mg oral tablet 2014-11-07 16:14:00 Yes 12.5 mg = 1 tab, PO, BID, 0 Refill(s) Mariajose adam dicyclomine 10 mg oral capsule 2014-11-07 16:14:00 Yes 20 mg = 2 cap, PO, QID, 0 Refill(s) Mariajose Finney nn Buspirone 2014-11-07 16:14:00 Yes 5 mg, PO, BID, 0 Refill(s) Mariajose Hopkins Valproic Acid 250 MG Enteric Coated Capsule 2014-11-07 16:14:00 Yes Special Instructions: 1500mg Daily Allen Hopkins Metformin 2014-11-07 16:14:00 Yes 500 mg, PO , BID, 0 Refill(s) Mariajose Hopkins Digoxin 2014-11-07 15:58:00 Yes .25, Daily, 0 Refill(s) Mariajose Hopkins Divalproex Sodium 500 MG Enteric Coated Tablet [Depakote] 2014-11-07 15:58:00 Yes 500 mg = 1 tab, PO, TID, 0 Refil l(s) Mariajose Hopkins Sodium Chloride 1000 MG Oral Tablet 2014-11-06 21:00:00 No 2 gm, 2 tab, Route: PO, Drug form: TAB, Q8H, Dosing Weight 68.182, kg, Start date: 11/06/14 16:00:00, Duration: 30 day, Stop date: 12/06/14 8:00:00 Mariajose Hopkins 24 HR Divalproex Sodium 500 MG Extended Release Tablet 2014-11-06 14:00:00 No Notes: (Same as : Depakote ER) Once daily dosing; indicated for migraines. Divalproex sodium extended-release tab. Do not chew or crush. "Do Not Crush" Mariajose Hopkins heparin sodium, porcine 2500 UNT/ML Injectable Solution 2014-11-06 05:00:00 No Notes: porcine heparin M chadd Gannonfran 2014-11-06 01:11:00 No Notes: (Same as: Zofran) Mariajose Raeann Tramadol 2014-11-05 23:00:00 No Notes: Not to exceed 400mg/day. (Same As: Ultram) Mariajose Raeann 24 HR Divalproex Sodium 500 MG Extended Release Tablet [Depa kote] 2014-11-05 22:00:00 No Notes: (Sa me as: Depakote ER) Once daily dosing; indicated for migraines. Divalproex sodium extended-release tab. Do not chew or crush. "Do Not Crush" Mariajose Raeann Citalopram 2014-11-05 14:00:00 No Notes: (S ralph As: CeleXA) [facility] [place] Sodium Chloride 1000 MG Oral Tablet 2014-11-05 11:00:00 No 3 gm, 3 tab, Route: PO, Drug form: TAB, Q6H, Dosing Weight 68.182, kg, Start date: 11/05/14 6:00:00, Duration: 30 day, Stop date: 12/05/14 0:00:00 [facility] calcium gluconate + Sodium Chloride 0.9% IV 100 mL 2014-10-17 1 09:15:00 No 3,000 mg, 30 mL, Rou te: IV, ONCE, Start date: 11/05/14 4:15:00, Stop date: 11/05/14 4:15:00 [facility] magnesium sulfate 2014-11-05 09:00:00 No 2 gm, 50 mL, Route: IVPB, Drug form: INJ, Q2H, Start date: 11/05/14 4:00:00, Duration: 1 doses or times, Stop date: 11/05/14 4:00:00 [facility] egan Sodium Chloride 1000 MG Oral Tablet 2014-11-05 07:24:00 No 2 gm, 2 tab, Route: PO, Drug form: TAB, Q8H, Dosing Weight 68.182, kg, Start date: 11/05/14 2:24:00, Duration: 30 day, Stop date: 12/05/14 0:00:00 Mariajose Raeann Water 1000 MG/ML Injectable Solution 2014-11-05 05:42:00 No Special Instructions: For IMU and ICU use only. See Order Comments!! Mariajose Hopkins Flomax 2014-11-05 02:14:00 No Notes: (Same As: Flomax) "Do Not Crush" Mariajose Hopkins Midodrine 2014-11-04 18:00:00 No Notes: (Sa ga as:Proamatine) Mariajose Hopkins Requip 2014-11-04 16:30:00 No Notes: (Same as: Requip) Mariajose Hopkins digoxin 250 mcg (0.25 mg) oral tablet 2014-11-04 15:49:00 N o Notes: Take on an Empty Stomach (Same as: Lanoxin) Mariajose Hopkins Valproic Acid 100 MG/ML Injectable Solution 2014-11-04 15:00:00 No Notes: Dilute in at least 50ml D5W or NS. Infusion rate = 20 mg/min (Same As: Depacon) Mariajose Hopkins 24 HR Divalproex Sodium 500 MG Extended Release Tablet [Depa kote] 2014-11-04 14:00:00 No Notes: ([facility] as: Depakote ER) Once daily dosing; indicated for migraines. Divalproex sodium extended-release tab. Do not chew or crush. "Do Not Crush" Mariajose Hopkins Zofran 2014-11-04 11:42:00 No Notes: (Same as: Kristie) MEDICATION WASTE Product Size: 4 mg Product Wasted: ___ mg Mariajose Hopkins Acetaminophen 2014-11-04 11:42:00 No Notes: Infuse over 15 minutes Do not exceed 4gm/day of acetaminophen MEDICATION WASTE Product Size: 1000 mg Product Wasted: ___ mg Azael Collins magnesium sulfate 2014-11-04 10:00:00 No 2 gm, 50 mL, Route: IVPB, Drug form: INJ, ONCE, Start date: 11/04/14 5:00:00, Stop date: 11/04/14 5:00:00 Mariajose Hopkins Water 1000 MG/ML Injectable Solution 2014-11-04 08:48:00 No Special Instructions: For IMU and ICU use only. See Order Comments!! Mariajose Hopkins Ondansetron 2014-11-04 03:53:00 No Notes: (Same as: Kristie) MEDICATION WASTE Product Size: 4 mg Product Wasted: ___ mg Mariajose Hopkins Naloxone 2014-11-04 03:53:00 No Notes: Same as Narcan [facility] Flumazenil 2014-11-04 03:53:00 No Notes: (S ralph as: Romazicon) [facility] Fentanyl 2014-11-04 03:53:00 No Notes: (Same as: Sublimaze) Preservative free. [facility] Saline Flush 0.9% 2014-11-04 02:00:00 No Notes: preservative free. [facility] Docusate 2014-11-04 02:00:00 No Notes: (Same as: Colace) (Do Not Crush) [facility] sennosides, [facility] 2014-11-04 02:00:00 No Notes: (Same as: Senokot) [facility] Levetiracetam 2014-11-04 02:00:00 No Notes: (Same as:Keppra) [facility] ceFAZolin (SCIP) + Sodium Chloride 0.9% IV 100 mL 2014-11-04 02:00:00 No Notes: (Same As: Anc ef, Kefzol) Cefazolin FOR IV SET ONLY MEDICATION WASTE Product Size: 1000 mg Product Wasted: _0__ mg [facility] Regular Insulin, Human 100 UNT/ML Injectable Solution 2014-11-04 01:53:00 No 60 units) St able for 28 days at room temperature Expires in days from Date [facility] Dextrose 50% Syringe 2014-11-04 01:53:00 No 25 gm, 50 mL, Route: IVP, Drug Form: INJ, Dosing Weight 68.182, kg, PRN, PRN Abnormal Lab Result, Start date: 11/03/14 20:53:00, Duration: 30 day, Stop date: 12/03/14 20:52:00 [facility] Sodium Chloride 0.9% (titrate) 250 mL 2014-11-04 01:53:00 N o 250 mL, Rate: type copyist for use with blood product administration, Dosing Weight 68.182, kg, Route: IV, Total Volume: 250, Start Date: 11/03/14 20:53:00, Duration: 30 day, Stop date: 12/03/14 20:52:00, Replace Every: 24 hr Mariajose Hopkins Saline Flush 0.9% 2014-11-04 01:53:00 No Notes: (Same as: BD Posiflush) Mariajose Hopkins Levetiracetam 2014-11-04 01:53:00 No Notes: Same as Keppra Mix with 100 mL NS, LR or D5W MEDICATION WASTE Product Size: 500 mg Product Wasted: ___ mg Mariajose Hopkins Sodium Chloride 0.154 MEQ/ML Injectable Solution 2014-11-04 01:5 3:00 No 1,000 mL, Rate: 75 ml/hr, In fuse over: 13.3 hr, Route: IV, Dosing Weight 68.182 kg, Total Volume: 1,000, Start date: 11/03/14 20:53:00, Duration: 30 day, Stop date: 12/03/14 20:52:00 Mariajose turpin Iohexol 2014-11-04 01:07:00 No Special Instructions: Dose = 2.2ml/kg, Max dose = 100ml -- "To be infused by Radiology Staff ONLY" Mariajose Hopkins Saline Flush 0.9% 2014-11-04 00:26:00 No Notes: (Same as: BD Posiflush) Mariajose Hopkins Zofran 2014-11-03 22:54:00 No Notes: (Same as: Zofran) MEDICATION WASTE Product Size: 4 mg Product Wasted: ___ mg Mariajose Hopkins Reglan 2014-11-03 21:31:00 No Notes: (Same as: Reglan) Mariajose Hopkins Sodium Chloride 0.154 MEQ/ML Injectable Solution 2014-11-03 21:3 1:00 No 1,000 mL, 1,000 ml/hr, Infus e Over: 1 hr, Route: IV, 1,000, Drug form: INJ, ONCE, Priority: STAT, Dosing Weight 68.182 kg, Start date: 11/03/14 16:31:00, Duration: 1 doses or times, Stop date: 11/03/14 16:31:00 Mariajose Hopkins Benadryl 2014-11-03 21:31:00 No Notes: (Graeme e as: Benadryl) Mariajose Hopkins Acetaminophen 300 MG / butalbital 50 MG / Caffeine 40 MG Oral Capsule [Fioricet] 2014-11-02 06:17:00 Yes Special Instructions: Do not exceed 6 capsules in 24 hours [facility] Sandeep Metoclopramide 2014-11-02 04:22:00 No 10 mg, Route: IVP, Drug form: INJ, ONCE, Dosing Weight 71.364, kg, Priority: STAT, Start date: 11/01/14 23:22:00, Stop date: 11/01/14 23:22:00 M chadd Sandeep Diphenhydramine 2014-11-02 04:22:00 No 25 mg, Route: IVP, ONCE, Dosing Weight 71.364, kg, Priority: STAT, Start date: 11/01/14 23:22:00, Stop date: 11/01/14 23:22:00 Mariajose Hopkins Sodium Chloride 0.154 MEQ/ML Injectable Solution 2014-11-02 04:1 6:00 No 1,000 mL, 1,000 ml/hr, Infus e Over: 1 Hour, Route: IV, ONCE, Priority: STAT, Dosing Weight 71.364 kg, Start date: 11/01/14 23:16:00, Duration: 1 doses or times, Stop date: 11/01/14 23:16:00 Boom Hopkins Dicyclomine Hydrochloride 20 MG Oral Tablet [Bentyl] 2 03:24:00 Yes 20 mg = 1 tab, PO, QID, # 28 tab, 0 Refi ll(s) [facility] Ondansetron 4 MG Disintegrating Tablet [Zofran] 2014-06-25 03:22 :00 Yes 4 mg = 1 tab, PO, TID, as needed for eduarda sea/vomiting, # 12 tab, 0 Refill(s) [facility] Sandeep Esomeprazole 40 MG Enteric Coated Capsule [Nexium] 2014-06 03:22:00 Yes 40 mg = 1 cap, PO, Daily, # 30 cap, 0 Re fill(s) [facility] Sandeep Zofran 2014-06-25 01:42:00 No 4 mg, Route: IVP, Drug form: INJ, ONCE, Dosing Weight 70.455, kg, Priority: STAT, Start date: 06/24/14 20:42:00, Stop date: 06/24/14 20:42:00 Mariajose jacobs Metoclopramide 2014-06-25 00:28:00 No 10 mg, Route: IVP, Drug form: INJ, ONCE, Dosing Weight 70.455, kg, Priority: STAT, Start date: 06/24/14 19:28:00, Stop date: 06/24/14 19:28:00 M chadd Hopkins Ondansetron 2014-06-25 00:28:00 No 4 mg, Route: IVP, ONCE, Dosing Weight 70.455, kg, Priority: STAT, Start date: 06/24/14 19:28:00, Stop date: 06/24/14 19:28:00 [facility] Saline Flush 0.9% 2014-06-25 00:28:00 No Notes: Same as: BD Posiflush Sterile [facility] Sodium Chloride 0.154 MEQ/ML Injectable Solution 2014-06-25 00:2 8:00 No 1,000 mL, Infuse Over: 1 hr, Route: IV, ONCE, Priority: STAT, Dosing Weight 70.455 kg, Start date: 06/24/14 19:28:00, Duration: 1 doses or times, Stop date: 06/24/14 19:28:00 [facility] Bentyl 20 mg oral tablet 2013-03-01 07:17:52 Yes Chai R Marito 20 mg, 1 tab, PO, QID, PRN, 30 tab, abdominal pain, Substitution Allowed [facility] morphine Sulfate 2013-03-01 03:33:00 No Chai R Marito 4 mg, Route: IVP, Drug form: INJ, ONCE, Dosing Weight 72.727, kg, Priority: STAT, Start date: 02/28/13 21:33:00, Stop date: 02/28/13 21:33:00 [facility] ondansetron 2013-03-01 03:33:00 No Chai R Marito 4 mg, Route: IVP, Drug form: INJ, ONCE, Dosing Weight 72.727, kg, Priority: STAT, Start date: 02/28/13 21:33:00, Stop date: 02/28/13 21:33:00 [facility] Sodium Chloride 0.9% (Bolus) IV 1000 mL 2013-03-01 03:33:00 No Chai R Marito 1,000 mL, Rate: 1,00 0 ml/hr, Infuse over: 1 hr, Route: IV, Dosing Weight 72.727 kg, Total Volume: 1,000, Priority: STAT, Start date: 02/28/13 21:33:00, Duration: 1 doses or times, Stop date: 02/28/13 22:32:00, Bolus DoseBolus Dose [facility] NAFTIN 1 % TOPICAL CREAM 2008-11-05 00:00:00 Yes Dermatophytosis of foot apply to the affected and hayes rrounding areas of skin by topical route twice daily [facility] NAPROXEN 500 MG TAB 2008-11-05 00:00:00 Yes Plant ar fasciitis take 1 tablet (500 mg) by oral route 2 times per day with food [facility] Atrovastatin Atrovastatin Yes 20 Bedtime [facility] Baclofen 10 Mg Tablet Baclofen 10 Mg Tablet Yes 10 Three Times A Day [facility] Divalproex Sodium (Divalproex Sodium Er) 500 Mg Tab.er .24h Divalproex Sodium (Divalproex Sodium Er) 500 Mg Tab.er.24h Yes 500 Three Times A Day [facility] Gabapentin 100 Mg Capsule Gabapentin 100 Mg Capsule Yes 100 Three Times A Day [facility] Glimepiride 2 Mg Tablet Glimepiride 2 Mg Tablet Yes 4 Twice A Day [facility] Pantoprazole Sodium (Protonix) 40 Mg Tablet. Pantopr azole Sodium (Protonix) 40 Mg Tablet. Yes 40 Daily [facility] Perampanel Perampanel Yes 2 Twice A Day [facility] Atrovas , Atrovas , 2015-11-27 00:00:00 No [facility] Cetirizine Hcl (Zyrtec) 10 Mg Capsule, 10 Mg Oral Ceti rizine Hcl (Zyrtec) 10 Mg Capsule, 10 Mg Oral 2015-11-27 00:00:00 No 10 Chasity y [facility] Dicyclomine Hcl 10 Mg Capsule, 10 Mg Oral Dicyclomine Hcl 10 Mg Capsule, 10 Mg Oral 2015-11-27 00:00:00 No 10 Four Times Daily [facility] Digoxin 250 Mcg Tablet, 250 Mcg Oral Digoxin 250 Mcg Tablet, 250 Mcg Oral 2015-11-27 00:00:00 No 250 Daily [facility] Divalproex Sodium 500 Mg Tablet.Rebecca fuller Divalproex Sodium 50 0 Mg Tablet.Rebecca fuller 2015-11-27 00:00:00 No 500 [facility] Fluticasone Furoate (Veramyst) 10 Gm Sweetser.susp, Gm I nhalation Fluticasone Furoate (Veramyst) 10 Gm Sweetser.susp, Gm Inhalation 2015-11-27 00:0 0:00 No Daily [facility] Meloxicam 7.5 Mg Tablet, 7.5 Mg Oral Meloxicam 7.5 Mg Tablet, 7. 5 Mg Oral 2015-11-27 00:00:00 No 7.5 Daily [facility] Metoclopramide Hcl (Reglan) 10 Mg Tablet, 10 Mg Oral M etoclopramide Hcl (Reglan) 10 Mg Tablet, 10 Mg Oral 2015-11-27 00:00:00 No 10 Four Times Daily [facility] Midodrine Hcl 5 Mg Tablet, 5 Mg Oral Midodrine Hcl 5 Mg Tablet, 5 Mg Oral 2015-11-27 00:00:00 No 5 Three Times A Day [facility] Promethazine Hcl 25 Mg Tablet, 25 Mg Oral Promethazine Hcl 25 Mg Tablet, 25 Mg Oral 2015-11-27 00:00:00 No 25 Every 4 Hours as n eeded for Nausea [facility] Venlafaxine Hcl (Venlafaxine Hcl Er) 225 Mg Tab.er.24, 225 Mg Oral Venlafaxine Hcl (Venlafaxine Hcl Er) 225 Mg Tab.er.24, 225 Mg Oral 2015-11-17 00:00:00 No 225 Daily [facility] Immunizations Ordered Immunization Name Filled Immunization Name Date Status Comments Source Td Tetanus, diphtheria Toxoids Vaccine 2008-10-09 00:00:00 [facility] Vital Signs Vital Name Observation Time Observation Value Comments Source Respitory Rate 2019-09-16 18:33:00 Azael tolentino [place] Temperature Oral (F) 2019-09-16 18:33:00 98.0 F [facility] [place] Systolic (mm Hg) 2019-09-16 18:33:00 Boom rial [place] Diastolic (mm Hg) 2019-09-16 18:33:00 [facility] Respitory Rate 2019-09-16 17:56:00 [facility] Systolic (mm Hg) 2019-09-16 17:56:00 Boom rial [place] Diastolic (mm Hg) 2019-09-16 17:56:00 [facility] Height 2019-09-16 16:17:00 162.56 cm [facility] [place] BMI Calculated 2019-09-16 16:17:00 [facility] Weight 2019-09-16 16:17:00 [facility] Systolic (mm Hg) 2019-09-16 16:17:00 Boom [facility] Diastolic (mm Hg) 2019-09-16 16:17:00 [facility] Heart Rate 2019-09-16 16:17:00 [facility] Respitory Rate 2019-09-16 16:17:00 [facility] [place] Temperature Oral (F) 2019-09-16 16:17:00 98.8 F [facility] Temperature Oral (F) 2019-09-14 20:59:00 97.9 F [facility] [place] Heart Rate 2019-09-14 20:59:00 [facility] [place] Respitory Rate 2019-09-14 20:59:00 Memori [facility] [place] Systolic (mm Hg) 2019-09-14 20:59:00 Boom rial [place] Diastolic (mm Hg) 2019-09-14 20:59:00 [facility] Temperature Oral (F) 2019-09-14 16:57:00 98.4 F [facility] [place] Heart Rate 2019-09-14 16:57:00 [facility] [place] Respitory Rate 2019-09-14 16:57:00 Memori [facility] Systolic (mm Hg) 2019-09-14 16:57:00 Boom rial [facility] Diastolic (mm Hg) 2019-09-14 16:57:00 [facility] [place] Temperature Oral (F) 2019-09-14 12:07:00 98.1 F [facility] Heart Rate 2019-09-14 12:07:00 [facility] Respitory Rate 2019-09-14 12:07:00 [facility] Systolic (mm Hg) 2019-09-14 12:07:00 Boom rial [place] Diastolic (mm Hg) 2019-09-14 12:07:00 [facility] Height 2019-09-14 08:30:00 167.64 cm [facility] Weight 2019-09-14 08:30:00 [facility] [place] BMI Calculated 2019-09-14 08:30:00 Memori al [place] Height 2019-09-14 03:08:00 167.64 cm [facility] BMI Calculated 2019-09-14 03:08:00 Memori [facility] [place] Weight 2019-09-14 03:08:00 [facility] [place] Systolic (mm Hg) 2018-05-02 19:59:00 Boom rial [place] Diastolic (mm Hg) 2018-05-02 19:59:00 [facility] Respitory Rate 2018-05-02 19:59:00 [facility] Respitory Rate 2018-05-02 17:07:00 Memori [facility] [place] Systolic (mm Hg) 2018-05-02 17:07:00 Boom rial [place] Diastolic (mm Hg) 2018-05-02 17:07:00 [facility] [place] Systolic (mm Hg) 2018-05-02 16:22:00 Boom rial [facility] Diastolic (mm Hg) 2018-05-02 16:22:00 [facility] Heart Rate 2018-05-02 16:22:00 [facility] [place] Respitory Rate 2018-05-02 16:22:00 [facility]ori [facility] [place] Temperature Oral (F) 2018-05-02 16:22:00 98.5 F [facility] [place] BMI Calculated 2018-05-02 16:22:00 [facility] Weight 2018-05-02 16:22:00 [facility] [place] Height 2018-05-02 16:22:00 162.56 cm [facility] Systolic (mm Hg) 2015-07-07 12:51:00 Boom rial [facility] Diastolic (mm Hg) 2015-07-07 12:51:00 Mem [facility] Heart Rate 2015-07-07 12:51:00 [facility] [place] Respitory Rate 2015-07-07 12:51:00 Memori al [facility] Heart Rate 2015-07-07 12:01:00 [facility] [place] Systolic (mm Hg) 2015-07-07 12:01:00 Boom rial [facility] Diastolic (mm Hg) 2015-07-07 12:01:00 [facility] Temperature Oral (F) 2015-07-07 12:01:00 97.9 F [facility] [place] Respitory Rate 2015-07-07 12:01:00 [facility] Weight 2015-07-07 11:25:00 [facility] Systolic (mm Hg) 2015-07-07 11:25:00 Boom rial [place] Diastolic (mm Hg) 2015-07-07 11:25:00 Mem [facility] [place] Respitory Rate 2015-07-07 11:25:00 [facility] [place] Heart Rate 2015-07-07 11:25:00 [facility] [place] Temperature Oral (F) 2015-07-07 11:25:00 97.7 F [facility] [place] Respitory Rate 2015-01-17 12:50:00 [facility] Heart Rate 2015-01-17 12:50:00 [facility] [place] Systolic (mm Hg) 2015-01-17 12:50:00 Boom rial [place] Diastolic (mm Hg) 2015-01-17 12:50:00 [facility] Temperature Oral (F) 2015-01-17 11:05:00 98 F [facility] Systolic (mm Hg) 2015-01-17 11:05:00 Boom rial [place] Diastolic (mm Hg) 2015-01-17 11:05:00 [facility] [place] Heart Rate 2015-01-17 11:05:00 [facility] Respitory Rate 2015-01-17 11:05:00 Mem[facility] Systolic (mm Hg) 2015-01-17 10:30:00 Boom rial [facility] Diastolic (mm Hg) 2015-01-17 10:30:00 [facility] Respitory Rate 2015-01-17 08:50:00 [facility] Heart Rate 2015-01-17 08:50:00 [facility] Temperature Oral (F) 2015-01-17 08:50:00 97 F [facility] Temperature Oral (F) 2015-01-17 07:00:00 97 F [facility] Weight 2015-01-16 22:10:00 [facility] [place] BMI Calculated 2015-01-16 22:10:00 [facility] Height 2015-01-16 22:10:00 162.56 cm [facility] [place] Temperature Oral (F) 2014-11-24 13:05:00 98.1 F [facility] Heart Rate 2014-11-24 13:05:00 [facility] Respitory Rate 2014-11-24 13:05:00 [facility] Systolic (mm Hg) 2014-11-24 13:05:00 Boom [facility] Diastolic (mm Hg) 2014-11-24 13:05:00 [facility] Systolic (mm Hg) 2014-11-24 09:16:00 Boom rial [place] Diastolic (mm Hg) 2014-11-24 09:16:00 [facility] Respitory Rate 2014-11-24 09:16:00 [facility] Heart Rate 2014-11-24 09:16:00 [facility] [place] Temperature Oral (F) 2014-11-24 09:16:00 97.8 F [facility] Systolic (mm Hg) 2014-11-24 05:00:00 Boom rial [place] Diastolic (mm Hg) 2014-11-24 05:00:00 [facility] Heart Rate 2014-11-24 05:00:00 [facility] Respitory Rate 2014-11-24 05:00:00 [facility] [place] Temperature Oral (F) 2014-11-24 05:00:00 97.9 F [facility] BMI Calculated 2014-11-23 10:46:00 [facility] Weight 2014-11-23 10:46:00 [facility] [place] Height 2014-11-23 10:46:00 167.64 cm [facility] [place] Weight 2014-11-22 20:06:00 [facility] [place] Heart Rate 2014-11-15 21:33:00 [facility] [place] Respitory Rate 2014-11-15 21:33:00 [facility] Systolic (mm Hg) 2014-11-15 21:33:00 Boom rial [place] Diastolic (mm Hg) 2014-11-15 21:33:00 [facility] [place] Temperature Oral (F) 2014-11-15 21:33:00 98.5 F [facility] Heart Rate 2014-11-15 17:55:00 [facility] Temperature Oral (F) 2014-11-15 17:55:00 98.6 F [facility] [place] Respitory Rate 2014-11-15 17:55:00 [facility] [place] Systolic (mm Hg) 2014-11-15 17:55:00 [facility] [place] Diastolic (mm Hg) 2014-11-15 17:55:00 [facility] [place] Systolic (mm Hg) 2014-11-15 09:17:00 [facility] [place] Diastolic (mm Hg) 2014-11-15 09:17:00 [facility] [place] Respitory Rate 2014-11-15 09:17:00 [facility] [place] Temperature Oral (F) 2014-11-15 09:17:00 98.5 F [facility] [place] Heart Rate 2014-11-15 09:17:00 [facility] [place] BMI Calculated 2014-11-12 03:39:00 [facility] Weight 2014-11-12 03:39:00 [facility] Height 2014-11-12 03:39:00 170.2 cm [facility] [place] Weight 2014-11-12 03:35:00 [facility] Weight 2014-11-12 03:34:00 [facility] [place] Systolic (mm Hg) 2014-11-07 20:25:00 [facility] [place] Diastolic (mm Hg) 2014-11-07 20:25:00 [facility] [place] Temperature Oral (F) 2014-11-07 20:25:00 98.3 F [facility] Respitory Rate 2014-11-07 20:25:00 [facility] [place] Respitory Rate 2014-11-07 16:52:00 [facility] Systolic (mm Hg) 2014-11-07 16:52:00 [facility] Diastolic (mm Hg) 2014-11-07 16:52:00 [facility] Temperature Oral (F) 2014-11-07 16:52:00 98.9 F [facility] Heart Rate 2014-11-07 16:52:00 [facility] Respitory Rate 2014-11-07 12:15:00 [facility] Heart Rate 2014-11-07 12:15:00 [facility] Systolic (mm Hg) 2014-11-07 12:15:00 [facility] Diastolic (mm Hg) 2014-11-07 12:15:00 [facility] Temperature Oral (F) 2014-11-07 12:15:00 97.9 F [facility] Heart Rate 2014-11-06 12:45:00 [facility] Height 2014-11-04 00:30:00 170.18 cm [facility] Weight 2014-11-04 00:30:00 [facility] BMI Calculated 2014-11-04 00:30:00 [facility] [place] Respitory Rate 2014-11-03 23:45:00 [facility] Temperature Oral (F) 2014-11-03 23:45:00 98.5 F [facility] Heart Rate 2014-11-03 23:45:00 [facility] Systolic (mm Hg) 2014-11-03 23:45:00 [facility] [place] Diastolic (mm Hg) 2014-11-03 23:45:00 [facility] [place] Temperature Oral (F) 2014-11-03 20:41:00 97.6 F [facility] Respitory Rate 2014-11-03 20:41:00 [facility] Weight 2014-11-03 20:41:00 [facility] BMI Calculated 2014-11-03 20:41:00 [facility] Height 2014-11-03 20:41:00 162.56 cm [facility] Systolic (mm Hg) 2014-11-03 20:41:00 [facility] Diastolic (mm Hg) 2014-11-03 20:41:00 [facility] Heart Rate 2014-11-03 20:41:00 [facility] Respitory Rate 2014-11-02 07:03:00 [facility] Systolic (mm Hg) 2014-11-02 07:03:00 [facility] Diastolic (mm Hg) 2014-11-02 07:03:00 [facility] Temperature Oral (F) 2014-11-02 07:03:00 97.9 F [facility] Heart Rate 2014-11-02 07:03:00 [facility] Respitory Rate 2014-11-02 05:00:00 [facility] Systolic (mm Hg) 2014-11-02 05:00:00 [facility] Diastolic (mm Hg) 2014-11-02 05:00:00 [facility] Temperature Oral (F) 2014-11-02 05:00:00 98.0 F [facility] Heart Rate 2014-11-02 05:00:00 [facility] Systolic (mm Hg) 2014-11-02 00:34:00 [facility] Diastolic (mm Hg) 2014-11-02 00:34:00 [facility] [place] Respitory Rate 2014-11-02 00:34:00 [facility] Heart Rate 2014-11-02 00:34:00 [facility] BMI Calculated 2014-11-02 00:34:00 [facility] Temperature Oral (F) 2014-11-02 00:34:00 98.4 F [facility] Weight 2014-11-02 00:34:00 [facility] Height 2014-11-02 00:34:00 170.18 cm [facility] Respitory Rate 2014-06-25 03:43:00 [facility] Systolic (mm Hg) 2014-06-25 03:43:00 [facility] Diastolic (mm Hg) 2014-06-25 03:43:00 [facility] Heart Rate 2014-06-25 03:43:00 [facility] Temperature Oral (F) 2014-06-25 03:43:00 98 F [facility] Heart Rate 2014-06-25 00:59:00 [facility] Temperature Oral (F) 2014-06-25 00:59:00 97.9 F [facility] Respitory Rate 2014-06-25 00:59:00 [facility] Systolic (mm Hg) 2014-06-25 00:59:00 [facility] Diastolic (mm Hg) 2014-06-25 00:59:00 [facility] Respitory Rate 2014-06-24 22:53:00 [facility] Temperature Oral (F) 2014-06-24 22:53:00 99.1 F [facility] Heart Rate 2014-06-24 22:53:00 [facility] Systolic (mm Hg) 2014-06-24 22:53:00 [facility] [place] Diastolic (mm Hg) 2014-06-24 22:53:00 [facility] [place] Weight 2014-06-24 22:53:00 [facility] Height 2014-06-24 22:53:00 162.56 cm [facility] BMI Calculated 2014-06-24 22:53:00 [facility] Respitory Rate 2013-03-01 07:43:00 [facility] Diastolic (mm Hg) 2013-03-01 07:43:00 [facility] [place] Systolic (mm Hg) 2013-03-01 07:43:00 [facility] Temperature Oral (F) 2013-03-01 07:43:00 97.9 F [facility] Diastolic (mm Hg) 2013-03-01 06:48:00 [facility] Systolic (mm Hg) 2013-03-01 06:48:00 [facility] Systolic (mm Hg) 2013-03-01 06:00:00 [facility] Respitory Rate 2013-03-01 06:00:00 [facility] Diastolic (mm Hg) 2013-03-01 06:00:00 [facility] [place] Respitory Rate 2013-03-01 04:52:00 [facility] Temperature Oral (F) 2013-03-01 04:52:00 98.0 F [facility] Weight 2013-03-01 00:40:00 [facility] Height 2013-03-01 00:40:00 162.56 cm [facility] Temperature Oral (F) 2013-03-01 00:40:00 97.7 F [facility] Heart Rate 2013-03-01 00:40:00 [facility] Procedures Procedure Date / Time Performed Performing Clinician Raul e Magnetic resonance imaging of brain without contrast 2018-04 00:00:00 BRITTANEY TALAVERA [facility] Gallbladder stone removal 2013-07-18 05:00:00 [facility] [place] Cholecyst[facility] Plan of Care Planned Activity Planned Date Details Comments Source Future Scheduled Test 2020-01-17 00:00:00 IMM Influenza Seas onal Jan to June (>/= 19 yrs) [code = IMM Influenza Seasonal Jan to June (>/= 19 yrs)] [facility] Encounters Start Date/Time End Date/Time Encounter Type Admission Type [facility] Care Department Encounter ID Source 2019-09-16 11:16:30 2019-09-16 13:40:00 Out[facility] Ihgloria[id number] 2019-09-16 11:16:00 2019-09-16 11:16:00 Emergency [id number] 2019-09-13 22:07:04 2019-09-14 19:40:00 Outpatient Ofe Blackman [facility] [id number] 2019-09-14 02:35:00 2019-09-14 02:35:00 Outpatient E [id number] 2018-05-03 10:25:00 2018-05-03 15:50:00 Departed Emergency Room 1 KRISTEN WEN [facility] [id number] [facility] 2018-05-02 10:12:00 2018-05-02 14:01:00 Outpatient Karlo Hyman Petros-Nam [facility] [id number] 2016-11-05 18:48:28 2016-11-05 18:48:28 Emergency [facility] [id number] [facility] 2016-10-18 00:00:00 2016-10-18 00:00:00 Outpatient [facility] [id number] [facility] 2016-10-13 20:57:10 2016-10-13 20:57:10 Emergency [facility] [id number] [facility] 2016-10-13 13:26:57 2016-10-13 13:26:57 Emergency [facility] [id number] [facility] 2015-07-07 06:22:00 2015-07-07 08:24:00 Outpatient George Fierro [facility] [id number] 2015-01-16 17:07:00 2015-01-17 08:30:00 Outpatient Gina Tate [facility] [id number] 2014-11-22 15:06:00 2014-11-24 11:18:00 Outpatient Neto Snyder [facility] [id number] 2014-11-11 13:43:00 2014-11-15 18:14:00 Outpatient Rad Scott [facility] [id number] 2014-11-03 19:17:00 2014-11-07 16:32:00 Outpatient Rafael Whiting [facility] [id number] 2014-11-03 15:40:00 2014-11-03 20:41:00 Outpatient Jeremy Bentley [facility] [id number] 2014-11-01 18:51:00 2014-11-02 02:05:00 Outpatient Moses Vasquez [facility] [id number] 2014-06-24 17:51:00 2014-06-24 22:45:00 Outpatient Olga Irby [id number] 2013-02-28 18:36:00 2013-03-01 01:35:00 Outpatient KYRA RAE [id number] [facility] Results Test Description Test Time Test Comments Results Result Comments Source CARDIAC ENZYMES 2019-09-16 17:06:00 140 [facility] CARDIAC ENZYMES 2019-09-16 17:06:00 <0.02 [facility] CHEM PANEL 2019-09-16 17:06:00 271 [facility] CHEM PANEL 2019-09-16 17:06:00 15 [facility] CHEM PANEL 2019-09-16 17:06:00 0.93 [facility] CHEM PANEL 2019-09-16 17:06:00 136 [facility] CHEM PANEL 2019-09-16 17:06:00 4.6 [facility] CHEM PANEL 2019-09-16 17:06:00 98 [facility] CHEM PANEL 2019-09-16 17:06:00 30 [facility] CHEM PANEL 2019-09-16 17:06:00 9.9 [facility] CHEM PANEL 2019-09-16 17:06:00 8.5 [facility] CHEM PANEL 2019-09-16 17:06:00 3.8 [facility] CHEM PANEL 2019-09-16 17:06:00 45 [facility] CHEM PANEL 2019-09-16 17:06:00 62 [facility] CHEM PANEL 2019-09-16 17:06:00 85 [facility] CHEM PANEL 2019-09-16 17:06:00 0.2 [facility] CHEM PANEL 2019-09-16 17:06:00 12.6 [facility] CHEM PANEL 2019-09-16 17:06:00 Test Item B/C Ratio (test code = B/C Ratio) 16 1 6-25 [facility] HermannCHEM [id number] 17:06:004.7[facility] HermannCHEM PANEL 2019-09-16 17:06:00* Test Item Value Reference Range Interpretation Comments A/G Ratio (test code = A/G Ratio) 0.8 1 0.7-1.6 [facility]annCHEM [id number] 17:06:56748Azaizzli HermannHEMATOLOGY 2019-09-16 17:06:006.5[facility] QklvlccHTDXWAEMXH0563-69-86 17:06:003.99[facility] EpzhsypXQAYBEOLLG5270-06-70 17:06:0012.8[facility] TdktjbyNQVALVDUDW7298-76-25 17:06:0037.8[facility] NwzpmxqDNELQZOHND7158-85-51 17:06:0094.6[facility] SBJTGDSCBK6935-00-65 17:06:00* Test Item Value Reference Range Interpretation Comments MCH (test code = MCH) 32.1 pg 27.0-31.0 [facility] PtralaxJKVZJNCRFH3407-13-79 17:06:0033.9[facility] HermannHEMATOLOGY 2019-09-16 17:06:0013.7[facility] QsepbfpOFKCZICWGC4354-67-38 17:06:95795Kwwnbnva NdqrgxrZWKYVRVDML9777-34-18 17:06:007.4[facility] HaxluqbKSYUMFTJON9671-63-28 17:06:0053.0[facility] JctklunPEWJOMZZFZ8637-75-16 17:06:0035.3[facility] NKFSZCHESA3677-00-35 17:06:008.9[facility] QvcnmbdBZIOAYZRGW7157-75-79 17:06:002.0 [facility] OabjxgfVHOKBPTKAY6612-69-93 17:06:000.8[facility] HermannHEMATOLOGY 2019-09-16 17:06:003.4[facility] CjoqxnqLTIFTFIHFV7567-88-70 17:06:002.3[facility] NvkagydRCBIUDCNSX8302-44-65 17:06:000.6[facility] QonkvtzAHBTEKZXZF6940-36-05 17:06:000.1[facility] LllsvnzLOKHKNYYOA7397-76-31 17:06:000.1[facility] CARDIAC NJGIVXC5505-90-11 03:59:08100Oiapxvra HermannCARDIAC IJYHSIE8011-48-38 03:59:00<0.02[facility] HermannCHEM NSOSG5912-61-50 03:59:34203[facility] CHEM SKNKN6250-09-54 03:59:0011[facility] HermannCHEM KBMIQ8877-14-89 03:59:000.75 [facility] HermannCHEM HBIQZ6409-55-26 03:59:30629Avqqdywk HermannCHEM PANEL 2019-09-14 03:59:003.9[facility] HermannCHEM YSHTR6167-80-56 03:59:0096[facility] HermannCHEM RUZBU8028-40-28 03:59:0032[facility] HermannCHEM NSKHG1887-85-43 03:59:009.1[facility] HermannCHEM FVWDQ1090-98-82 03:59:008.3[facility] HermannCHEM EHWDM8231-07-82 03:59:003.7[facility] HermannCHEM JELUP0984-45-69 03:59:0038 [facility] HermannCHEM KWOQD1672-49-23 03:59:0039[facility] HermannCHEM PANEL 2019-09-14 03:59:0083[facility] HermannCHEM NZFQE8268-90-40 03:59:000.1[facility] HermannCHEM XECUO0970-12-73 03:59:008.9[facility] HermannCHEM VEQDF2474-54-09 03:59:00* Test Item Value Reference Range Interpretation Comments B/C Ratio (test code = B/C Ratio) 15 1 6-25 [facility]annCHE[facility] IHQOB0259-87-00 03:59:004.6[facility] HermannCHEM PANEL 2019-09-14 03:59:00* Test Item Value Reference Range Interpretation Comments A/G Ratio (test code = A/G Ratio) 0.8 1 0.7-1.6 [facility]annCHEM MAGLU7441-04-92 03:59:11674Slggbgus HermannCHEM PANEL 2019-09-14 03:59:001.7[facility] HermannDRUG FTCEDP7432-26-96 03:59:00Negative *NA*(09/13/19 10:59 PM)[facility] HermannDRUG XIKPRJ2131-78-58 03:59:00Negative *NA*(09/13/19 10:59 PM)[facility] HermannDR[facility] UCYPKC2898-47-93 03:59:00Negative *NA*(09/13/19 10:59 PM)[facility]annDR[facility] NAMIIV5735-76-40 03:59:00Negative *NA*(09/13/19 10:59 PM)[facility]annDR[facility] NQNKKS5137-17-27 03:59:00Negative *NA*(09/13/19 10:59 PM)[facility]annDR[facility] NGFQXJ2765-83-58 03:59:00Negative *NA*(09/13/19 10:59 PM)[facility]annDR[facility] MGODJC3245-92-82 03:59:00Negative *NA*(09/13/19 10:59 PM)[facility]annDR[facility] ROLRHA5217-82-08 03:59:00See Note (09/13/19 10:59 PM)[facility] BxsspkfXCZAAHUXSW0078-82-39 03:59:008.2[facility] CoxqlywDGYHMXEMXO1005-35-91 03:59:003.89[facility] ByccdkyOYJOHBNMIP8020-99-50 03:59:0012.5[facility] EsnvmlqAJADHCVNQR3119-96-55 03:59:0036.6[facility] QYRWIAUTMS5679-23-93 03:59:0094.1[facility] HwiluerZVSQNZIMRA5108-58-45 03:59:00* Test Item Value Reference Range Interpretation Comments MCH (test code = MCH) 32.1 pg 27.0-31.0 [facility] LjkqyjuDJZMEPDKTO4800-17-12 03:59:0034.1[facility] HermannHEMATOLOGY 2019-09-14 03:59:0013.3[facility] RccddmxDYNQXGJXTO4155-52-51 03:59:96991Eqvxrrsn IybucpkFIVISGPEZE6025-72-50 03:59:007.3[facility] VxhvbhhLRMTQDETBX4522-65-30 03:59:0049.3[facility] AakztfpEQNTGKLLRL5158-05-85 03:59:0038.5[facility] DAFPJUVQVM6221-25-53 03:59:0010.0[facility] RsxmadqDBEMSKIXDF0233-60-79 03:59:00 1.6[facility] ExcaqekLGRGLRUUOU4795-74-43 03:59:000.6[facility] HermannHEMATOLOGY 2019-09-14 03:59:004.0[facility] OdxsthzUYZDUIQUFT1783-43-34 03:59:003.1[facility] IxwowsjCIFCMTUJZD0877-46-94 03:59:000.8[facility] LywbmduVTUTVXIMSD4721-25-58 03:59:000.1[facility] ZmlwnpuGKDDCQYBTM7965-58-49 03:59:000.1[facility] HermannURINE AND QZSKB8848-63-26 03:59:00Clear (09/13/19 10:59 PM)[facility] AND UVICB3059-75-51 03:59:00* Test Item Value Reference Range Interpretation Comments UA Spec Grav (test code = UA Spec Grav) 1.009 1 [facility] AND UGXML0807-63-05 03:59:00* Test Item Value Reference Range Interpretation Comments UA pH (test code = UA pH) 7.0 1 5.0-8.0 [facility] [id number] 03:59:00Negative *NA*(09/13/19 10:59 PM)[facility] BISPN3485-94-40 03:59:00Negative (09/13/19 10:59 PM) [facility] KYPFJ8916-35-07 03:59:00Negative (09/13/19 10:59 PM) [facility] UVSVF1960-72-25 03:59:00Negative (09/13/19 10:59 PM) [facility] IQPZS4247-75-15 03:59:001[facility] AND CTDQN4063-93-24 03:59:00<1[facility] YauxdauLMLIOD0964-40-47 10:46:00* Test Item Value Reference Range Interpretation Comments GLUBED (test code = GLUBED) 214 mg/dL 74-106 H Performed by certified hose operator at [facility] [id number] 05:42:00* Test Item Value Reference Range Interpretation Comments GLUBED (test code = GLUBED) 105 mg/dL 74-106 N Performed by certified hose operator at [facility] BASIC METABOLIC [id number] 04:27:00* Test Item Value Reference Range Interpretation Comments SODIUM (test code = NA) 131 mmol/L 136-145 L POTASSIUM (test code = K) 4.8 mmol/L 3.5-5.1 N CHLORIDE (test code = CL) 96.0 mmol/L 98-107 L CARBON DIOXIDE (test code = CO2) 29.0 mmol/L 21-32 N ANION GAP (test code = GAP) 10.8 10-20 N GLUCOSE (test code = GLU) 125 mg/dL 74-106 H BLOOD UREA NITROGEN (test code = BUN) 13 mg/dL 7-18 N GLOMERULAR FILTRATION RATE (test code = GFR) > 60 mL/min >=60 Estimated GFR by using Modified MDRD formula.Chronic kidney disease is defined as either kidney damageor GFR <60 mL/min/1.73 m2 for >3 months. CREATININE (test code = CREAT) 0.70 mg/dL 0.7-1.3 N BUN/CREATININE RATIO (test code = BUN/CREA) 18.6 10-20 N CALCIUM (test code = CA) 9.1 mg/dL 8.5-10.1 N [id number] 04:27:00* Test Item Value Reference Range Interpretation Comments PHOSPHORUS (test code = PHOS) 2.9 mg/dL 2.5-4.9 N [id number] 04:27:00* Test Item Value Reference Range Interpretation Comments MAGNESIUM (test code = MAG) 2.2 mg/dL 1.8-2.4 N BASIC METABOLIC [id number] 04:16:00* Test Item Value Reference Range Interpretation Comments SODIUM (test code = NA) 131 mmol/L 136-145 L POTASSIUM (test code = K) 4.8 mmol/L 3.5-5.1 N CHLORIDE (test code = CL) 96.0 mmol/L 98-107 L CARBON DIOXIDE (test code = CO2) mmol/L 21-32 ANION GAP (test code = GAP) 10-20 GLUCOSE (test code = GLU) mg/dL 74-106 BLOOD UREA NITROGEN (test code = BUN) mg/dL 7-18 GLOMERULAR FILTRATION RATE (test code = GFR) mL/min >=60 CREATININE (test code = CREAT) mg/dL 0.7-1.3 BUN/CREATININE RATIO (test code = BUN/CREA) 10-20 CALCIUM (test code = CA) mg/dL 8.5-10.1 [id number] 04:16:00* Test Item Value Reference Range Interpretation Comments PHOSPHORUS (test code = PHOS) mg/dL 2.5-4.9 [id number] 04:16:00* Test Item Value Reference Range Interpretation Comments MAGNESIUM (test code = MAG) mg/dL 1.8-2.4 [id number] 20:17:00* Test Item Value Reference Range Interpretation Comments GLUBED (test code = GLUBED) 217 mg/dL 74-106 H Performed by certified hose operator at [facility] [id number] 16:28:00* Test Item Value Reference Range Interpretation Comments GLUBED (test code = GLUBED) 163 mg/dL 74-106 H Performed by certified hose operator at [facility] [id number] 12:47:00* Test Item Value Reference Range Interpretation Comments GLUBED (test code = GLUBED) 175 mg/dL 74-106 H Performed by certified hose operator at [facility] BASIC METABOLIC [id number] 10:51:00* Test Item Value Reference Range Interpretation Comments SODIUM (test code = NA) 128 mmol/L 136-145 L POTASSIUM (test code = K) 5.2 mmol/L 3.5-5.1 H CHLORIDE (test code = CL) 93.0 mmol/L 98-107 L CARBON DIOXIDE (test code = CO2) 26.0 mmol/L 21-32 N ANION GAP (test code = GAP) 14.2 10-20 N GLUCOSE (test code = GLU) 205 mg/dL 74-106 H BLOOD UREA NITROGEN (test code = BUN) 14 mg/dL 7-18 N GLOMERULAR FILTRATION RATE (test code = GFR) > 60 mL/min >=60 Estimated GFR by using Modified MDRD formula.Chronic kidney disease is defined as either kidney damageor GFR <60 mL/min/1.73 m2 for >3 months. CREATININE (test code = CREAT) 0.80 mg/dL 0.7-1.3 N BUN/CREATININE RATIO (test code = BUN/CREA) 17.5 10-20 N CALCIUM (test code = CA) 9.0 mg/dL 8.5-10.1 N BASIC METABOLIC [id number] 10:46:00* Test Item Value Reference Range Interpretation Comments SODIUM (test code = NA) 128 mmol/L 136-145 L POTASSIUM (test code = K) 5.2 mmol/L 3.5-5.1 H CHLORIDE (test code = CL) 93.0 mmol/L 98-107 L CARBON DIOXIDE (test code = CO2) mmol/L 21-32 ANION GAP (test code = GAP) 10-20 GLUCOSE (test code = GLU) mg/dL 74-106 BLOOD UREA NITROGEN (test code = BUN) mg/dL 7-18 GLOMERULAR FILTRATION RATE (test code = GFR) mL/min >=60 CREATININE (test code = CREAT) mg/dL 0.7-1.3 BUN/CREATININE RATIO (test code = BUN/CREA) 10-20 CALCIUM (test code = CA) 9.0 mg/dL 8.5-10.1 N [id number] 05:26:00* Test Item Value Reference Range Interpretation Comments GLUBED (test code = GLUBED) 106 mg/dL 74-106 N Performed by certified hose operator at [facility] BASIC METABOLIC [id number] 02:11:00* Test Item Value Reference Range Interpretation Comments SODIUM (test code = NA) 130 mmol/L 136-145 L POTASSIUM (test code = K) 5.2 mmol/L 3.5-5.1 H CHLORIDE (test code = CL) 95.0 mmol/L 98-107 L CARBON DIOXIDE (test code = CO2) 29.0 mmol/L 21-32 N ANION GAP (test code = GAP) 11.2 10-20 N GLUCOSE (test code = GLU) 104 mg/dL 74-106 N BLOOD UREA NITROGEN (test code = BUN) 12 mg/dL 7-18 N GLOMERULAR FILTRATION RATE (test code = GFR) > 60 mL/min >=60 Estimated GFR by using Modified MDRD formula.Chronic kidney disease is defined as either kidney damageor GFR <60 mL/min/1.73 m2 for >3 months. CREATININE (test code = CREAT) 0.80 mg/dL 0.7-1.3 N BUN/CREATININE RATIO (test code = BUN/CREA) 15.0 10-20 N CALCIUM (test code = CA) 8.8 mg/dL 8.5-10.1 N BASIC METABOLIC [id number] 02:04:00* Test Item Value Reference Range Interpretation Comments SODIUM (test code = NA) 130 mmol/L 136-145 L POTASSIUM (test code = K) 5.2 mmol/L 3.5-5.1 H CHLORIDE (test code = CL) 95.0 mmol/L 98-107 L CARBON DIOXIDE (test code = CO2) mmol/L 21-32 ANION GAP (test code = GAP) 10-20 GLUCOSE (test code = GLU) mg/dL 74-106 BLOOD UREA NITROGEN (test code = BUN) mg/dL 7-18 GLOMERULAR FILTRATION RATE (test code = GFR) mL/min >=60 CREATININE (test code = CREAT) mg/dL 0.7-1.3 BUN/CREATININE RATIO (test code = BUN/CREA) 10-20 CALCIUM (test code = CA) mg/dL 8.5-10.1 CBC W/AUTO [id number] 01:41:00* Test Item Value Reference Range Interpretation Comments WHITE BLOOD CELL (test code = WBC) 8.8 K/mm3 4.5-12.5 N RED BLOOD CELL (test code = RBC) 4.35 mill/mm3 4.0-5.8 N HEMOGLOBIN (test code = HGB) 13.8 gram/dL 13.0-17.5 N HEMATOCRIT (test code = HCT) 38.6 % 42.0-52.0 L MEAN CELL VOLUME (test code = MCV) 88.7 fL 80-98 N MEAN CELL HGB (test code = MCH) 31.7 picogram 27.0-33.0 N MEAN CELL HGB CONCETRATION (test code = MCHC) 35.8 gram/dL 33.0-36. 0 N RED CELL DISTRIBUTION WIDTH (test code = RDW) 12.4 % 11.6-16. 2 N RED CELL DISTRIBUTION WIDTH SD (test code = RDW-SD) 40.8 fL 37 .0-51.0 N PLATELET COUNT (test code = PLT) 335 K/mm3 150-450 N MEAN PLATELET VOLUME (test code = MPV) 9.0 fL 6.7-11.0 N NEUTROPHIL % (test code = NT%) 48.8 % 39.0-69.0 N IMMATURE GRANULOCYTE % (test code = IG%) 1.1 % 0.0-5.0 N LYMPHOCYTE % (test code = LY%) 39.1 % 25.0-55.0 N MONOCYTE % (test code = MO%) 8.5 % 0.0-10.0 N EOSINOPHIL % (test code = EO%) 1.7 % 0.0-5.0 N BASOPHIL % (test code = BA%) 0.8 % 0.0-1.0 N NUCLEATED RBC % (test code = NRBC%) 0.0 % 0-0 N NEUTROPHIL # (test code = NT#) 4.27 K/mm3 1.8-7.7 N IMMATURE GRANULOCYTE # (test code = IG#) 0.10 x10 3/uL 0-0.03 H LYMPHOCYTE # (test code = LY#) 3.42 K/mm3 1.0-5.0 N MONOCYTE # (test code = MO#) 0.74 K/mm3 0-0.8 N EOSINOPHIL # (test code = EO#) 0.15 K/mm3 0.0-0.5 N BASOPHIL # (test code = BA#) 0.07 K/mm3 0.0-0.2 N NUCLEATED RBC # (test code = NRBC#) 0.00 K/mm3 0.0-0.1 N MANUAL DIFF REQUIRED (test code = MDIFF) NO [id number] 20:41:00* Test Item Value Reference Range Interpretation Comments GLUBED (test code = GLUBED) 190 mg/dL 74-106 H Performed by certified hose operator at [facility] [id number] 17:14:00* Test Item Value Reference Range Interpretation Comments GLUBED (test code = GLUBED) 97 mg/dL 74-106 N Performed by certified hose operator at [facility] [id number] 12:40:00* Test Item Value Reference Range Interpretation Comments GLUBED (test code = GLUBED) 132 mg/dL 74-106 H Performed by certified hose operator at [facility] [id number] 07:20:00* Test Item Value Reference Range Interpretation Comments GLUBED (test code = GLUBED) 161 mg/dL 74-106 H Performed by certified hose operator at [facility] BASIC METABOLIC [id number] 05:42:00* Test Item Value Reference Range Interpretation Comments SODIUM (test code = NA) 130 mmol/L 136-145 L POTASSIUM (test code = K) 4.2 mmol/L 3.5-5.1 N CHLORIDE (test code = CL) 93.0 mmol/L 98-107 L CARBON DIOXIDE (test code = CO2) 28.0 mmol/L 21-32 N ANION GAP (test code = GAP) 13.2 10-20 N GLUCOSE (test code = GLU) 100 mg/dL 74-106 N BLOOD UREA NITROGEN (test code = BUN) 12 mg/dL 7-18 N GLOMERULAR FILTRATION RATE (test code = GFR) > 60 mL/min >=60 Estimated GFR by using Modified MDRD formula.Chronic kidney disease is defined as either kidney damageor GFR <60 mL/min/1.73 m2 for >3 months. CREATININE (test code = CREAT) 0.70 mg/dL 0.7-1.3 N BUN/CREATININE RATIO (test code = BUN/CREA) 17.1 10-20 N CALCIUM (test code = CA) 9.1 mg/dL 8.5-10.1 N [id number] 05:42:00* Test Item Value Reference Range Interpretation Comments PHOSPHORUS (test code = PHOS) 3.7 mg/dL 2.5-4.9 N [id number] 05:42:00* Test Item Value Reference Range Interpretation Comments MAGNESIUM (test code = MAG) 1.7 mg/dL 1.8-2.4 L VITAMIN [id number] 05:42:00* Test Item Value Reference Range Interpretation Comments VITAMIN B12 (test code = VITB12) 395 pg/mL 193-986 N T4 [id number] 05:42:00* Test Item Value Reference Range Interpretation Comments T4 FREE (test code = T4F) 0.78 ng/dL 0.76-1.46 N THYROID STIMULATING [id number] 05:42:00* Test Item Value Reference Range Interpretation Comments THYROID STIMULATING HORMONE (test code = TSH) 4.290 uIU/mL 0.36-3.7 4 H TSH REFERENCE RANGES: EUTHYROID: 0.35 - 4.3 mIU/mL HYPO : > 5.5 mIU/mL HYPER : < 0.35 mIU/mL BASIC METABOLIC [id number] 05:06:00* Test Item Value Reference Range Interpretation Comments SODIUM (test code = NA) 130 mmol/L 136-145 L POTASSIUM (test code = K) 4.2 mmol/L 3.5-5.1 N CHLORIDE (test code = CL) 93.0 mmol/L 98-107 L CARBON DIOXIDE (test code = CO2) mmol/L 21-32 ANION GAP (test code = GAP) 10-20 GLUCOSE (test code = GLU) mg/dL 74-106 BLOOD UREA NITROGEN (test code = BUN) mg/dL 7-18 GLOMERULAR FILTRATION RATE (test code = GFR) mL/min >=60 CREATININE (test code = CREAT) mg/dL 0.7-1.3 BUN/CREATININE RATIO (test code = BUN/CREA) 10-20 CALCIUM (test code = CA) mg/dL 8.5-10.1 [id number] 05:06:00* Test Item Value Reference Range Interpretation Comments PHOSPHORUS (test code = PHOS) mg/dL 2.5-4.9 [id number] 05:06:00* Test Item Value Reference Range Interpretation Comments MAGNESIUM (test code = MAG) mg/dL 1.8-2.4 VITAMIN [id number] 05:06:00* Test Item Value Reference Range Interpretation Comments VITAMIN B12 (test code = VITB12) pg/mL 193-986 T4 [id number] 05:06:00* Test Item Value Reference Range Interpretation Comments T4 FREE (test code = T4F) ng/dL 0.76-1.46 THYROID STIMULATING [id number] 05:06:00* Test Item Value Reference Range Interpretation Comments THYROID STIMULATING HORMONE (test code = TSH) uIU/mL 0.36-3.7 4 CBC W/AUTO [id number] 04:48:00* Test Item Value Reference Range Interpretation Comments WHITE BLOOD CELL (test code = WBC) 7.6 K/mm3 4.5-12.5 N RED BLOOD CELL (test code = RBC) 4.08 mill/mm3 4.0-5.8 N HEMOGLOBIN (test code = HGB) 12.8 gram/dL 13.0-17.5 L HEMATOCRIT (test code = HCT) 36.3 % 42.0-52.0 L MEAN CELL VOLUME (test code = MCV) 89.0 fL 80-98 N MEAN CELL HGB (test code = MCH) 31.4 picogram 27.0-33.0 N MEAN CELL HGB CONCETRATION (test code = MCHC) 35.3 gram/dL 33.0-36. 0 N RED CELL DISTRIBUTION WIDTH (test code = RDW) 12.4 % 11.6-16. 2 N RED CELL DISTRIBUTION WIDTH SD (test code = RDW-SD) 40.7 fL 37 .0-51.0 N PLATELET COUNT (test code = PLT) 322 K/mm3 150-450 N MEAN PLATELET VOLUME (test code = MPV) 9.1 fL 6.7-11.0 N NEUTROPHIL % (test code = NT%) 43.7 % 39.0-69.0 N IMMATURE GRANULOCYTE % (test code = IG%) 1.2 % 0.0-5.0 N LYMPHOCYTE % (test code = LY%) 42.5 % 25.0-55.0 N MONOCYTE % (test code = MO%) 9.7 % 0.0-10.0 N EOSINOPHIL % (test code = EO%) 2.1 % 0.0-5.0 N BASOPHIL % (test code = BA%) 0.8 % 0.0-1.0 N NUCLEATED RBC % (test code = NRBC%) 0.0 % 0-0 N NEUTROPHIL # (test code = NT#) 3.30 K/mm3 1.8-7.7 N IMMATURE GRANULOCYTE # (test code = IG#) 0.09 x10 3/uL 0-0.03 H LYMPHOCYTE # (test code = LY#) 3.21 K/mm3 1.0-5.0 N MONOCYTE # (test code = MO#) 0.73 K/mm3 0-0.8 N EOSINOPHIL # (test code = EO#) 0.16 K/mm3 0.0-0.5 N BASOPHIL # (test code = BA#) 0.06 K/mm3 0.0-0.2 N NUCLEATED RBC # (test code = NRBC#) 0.00 K/mm3 0.0-0.1 N MANUAL DIFF REQUIRED (test code = MDIFF) NO UR NA,[id number] 23:50:00* Test Item Value Reference Range Interpretation Comments UR NA,RANDOM (test code = EDUARDA) 95 mmol/L 20-110 N UR OSMOLALITY [id number] 23:50:00* Test Item Value Reference Range Interpretation Comments UR OSMOLALITY RANDOM (test code = OSMOU) 339 mOsm/kg 48-962 N UR NA,[id number] 23:49:00* Test Item Value Reference Range Interpretation Comments UR NA,RANDOM (test code = EDUARDA) mmol/L 20-110 UR OSMOLALITY [id number] 23:49:00* Test Item Value Reference Range Interpretation Comments UR OSMOLALITY RANDOM (test code = OSMOU) 339 mOsm/kg 48-962 N [id number] 22:23:00* Test Item Value Reference Range Interpretation Comments GLUBED (test code = GLUBED) 111 mg/dL 74-106 H Performed by certified hose operator at [facility] [id number] 22:15:00* Test Item Value Reference Range Interpretation Comments DIGOXIN (test code = DIG) 0.5 ng/mL 0.90-2.0 L NO TE: Spironolactone interference may cause a decrease inreported Digoxin results of 11-30 %. OSMOLALITY [id number] 21:42:00* Test Item Value Reference Range Interpretation Comments OSMOLALITY SERUM (test code = OSMO) 272.5 mOsm/kg 275-295 L 2057]BASIC METABOLIC [id number] 12:34:00* Test Item Value Reference Range Interpretation Comments SODIUM (test code = NA) 126 mmol/L 136-145 L POTASSIUM (test code = K) 4.9 mmol/L 3.5-5.1 N CHLORIDE (test code = CL) 90.0 mmol/L 98-107 L CARBON DIOXIDE (test code = CO2) 28.0 mmol/L 21-32 N ANION GAP (test code = GAP) 12.9 10-20 N GLUCOSE (test code = GLU) 116 mg/dL 74-106 H BLOOD UREA NITROGEN (test code = BUN) 10 mg/dL 7-18 N GLOMERULAR FILTRATION RATE (test code = GFR) > 60 mL/min >=60 Estimated GFR by using Modified MDRD formula.Chronic kidney disease is defined as either kidney damageor GFR <60 mL/min/1.73 m2 for >3 months. CREATININE (test code = CREAT) 0.70 mg/dL 0.7-1.3 N BUN/CREATININE RATIO (test code = BUN/CREA) 14.3 10-20 N CALCIUM (test code = CA) 9.7 mg/dL 8.5-10.1 N [id number] 12:34:00* Test Item Value Reference Range Interpretation Comments TROPONIN-I (test code = TROPI) <0.015 ng/mL 0-0.045 N BASIC METABOLIC [id number] 12:24:00* Test Item Value Reference Range Interpretation Comments SODIUM (test code = NA) 126 mmol/L 136-145 L POTASSIUM (test code = K) 4.9 mmol/L 3.5-5.1 N CHLORIDE (test code = CL) 90.0 mmol/L 98-107 L CARBON DIOXIDE (test code = CO2) 28.0 mmol/L 21-32 N ANION GAP (test code = GAP) 12.9 10-20 N GLUCOSE (test code = GLU) mg/dL 74-106 BLOOD UREA NITROGEN (test code = BUN) 10 mg/dL 7-18 N GLOMERULAR FILTRATION RATE (test code = GFR) mL/min >=60 CREATININE (test code = CREAT) mg/dL 0.7-1.3 BUN/CREATININE RATIO (test code = BUN/CREA) 10-20 CALCIUM (test code = CA) 9.7 mg/dL 8.5-10.1 N [id number] 12:24:00* Test Item Value Reference Range Interpretation Comments TROPONIN-I (test code = TROPI) ng/mL 0-0.045 - CT HEAD/BRAIN W/O [id number] 12:09:00 Name: GUSTAVO CARPENTER [facility] : 1980 Age/S: 39 / M [address] Unit #: [id number] Loc: [place] [address] Phys: Sharon Cerda MD Acct: [id number] Dis Date: Status: PRE ER PHONE #: [phone] Exam Date: 08/31/2019 1120 FAX #: [phone] Reason: near syncope EXAMS: CPT CODE: [id number] CT HEAD/BRAIN W/O CONT 65694 HISTORY: near syncope TECHNIQUE: Noncontrast 2.[address] of the head. Examination acquired within 24 hours of arrival. Automated exposure control for dose reduction. COMPARISON: CT scan of the brain June 24, 2019 FINDINGS: No lacerations or contusions of the scalp or facial soft tissues. Prior craniotomy changes involving the right frontal bone and right parietal bone appear unchanged from the prior exam No acute hemorrhage. No intracranial mass, mass effect, or midline shift. No effacement of the sulci or marmolejo-white matter interface. Basal ganglia calcifications bilaterally and calcification adjacent to the anterior horn of the right lateral ventricle appear unchanged from the previous exam. No cortical atrophy. No signs of white matter small-vessel disease. No hydrocephalus.. No extra-axial fluid collection. Visualized paranasal sinuses are clear. Mastoid air cells and middle ear cavities are clear. Orbital contents are unremarkable. IMPRESSION: No acute intracranial process or significant change from prior exam. Location: [facility] Electr onically Signed by Anthony Samayoa MD on 08/31/2019 at 1209 Reported and signed by: Anthony Samayoa MD CC: Sharon Cerda MD; Casandra Hough MD Technologist:Suzanna Jarquin,RT(R),CT; GUTIERREZ WOLF CTDI: DLP: Trnscb Date/Time: 08/31/2019 (120) t.[email or web address] Orig Print D/T: S: 08/31/2019 (4526) PAGE 1 Signed Report CBC W/O [id number] 12:03:00* Test Item Value Reference Range Interpretation Comments WHITE BLOOD CELL (test code = WBC) 8.9 K/mm3 4.5-12.5 N RED BLOOD CELL (test code = RBC) 4.02 mill/mm3 4.0-5.8 N HEMOGLOBIN (test code = HGB) 12.7 gram/dL 13.0-17.5 L HEMATOCRIT (test code = HCT) 35.3 % 42.0-52.0 L MEAN CELL VOLUME (test code = MCV) 87.8 fL 80-98 N MEAN CELL HGB (test code = MCH) 31.6 picogram 27.0-33.0 N MEAN CELL HGB CONCETRATION (test code = MCHC) 36.0 gram/dL 33.0-36. 0 N RED CELL DISTRIBUTION WIDTH (test code = RDW) 12.5 % 11.6-16. 2 N PLATELET COUNT (test code = PLT) 330 K/mm3 150-450 N MEAN PLATELET VOLUME (test code = MPV) 9.5 fL 6.7-11.0 N - XR CHEST 1 [id number] 11:13:00 FAX: Sharon Ortiz [phone] [place]: St: PRE FAX: Yang Kendall MD Name: GUSTAVO CARPENTER [facility] : 1980 Age/S: 39/M [address] [facility] Unit #: [id number] Loc: [place] [address] Phys: Sharon Cerda MD Acct: [id number] Dis Date: Status: PRE ER PHONE #: [phone] Exam Date: 08/31/2019 1047 FAX #: [phone] Reason: near syncope EXAMS: CPT CODE: [id number] XR CHEST 1 V [id number] REASON FOR EXAM: near syncope Exam Order Date: 08/31/2019 10:33 AM Ordering M.DFederico: Sharon Cerda MD PROCEDURE: - XR CHEST 1 V COMPARISON: Chest x-ray June 01, 2019 FINDINGS: The lungs are clear. There is no pleural effusion or pneumothorax. Pulmonary vascularity is within normal limits. Cardiomediastinal silhouette is normal in size for technique. The mediastinal contours are within normal limits. Musculoskeletal structures are within normal limits. The visualized upper abdomen is within normal limits. IMPRESSION: No acute cardiopulmonary process. Location: [facility] Elect ronically Signed by Anthony Samayoa MD on 08/31/2019 at 1113 Reported and signed by: Anthony Samayoa MD CC: Sharon Cerda MD; Yang Major MD Technologist: Lety Daniel(R) Trnscrd Date/Time/By: 08/31/2019 (1113) : By: [email or web address] Orig Print D/T: S: 08/31/2019 (1116) PAGE 1 Signed Report [id number] 20:42:00* Test Item Value Reference Range Interpretation Comments GLUBED (test code = GLUBED) 237 mg/dL 74-106 H [facility]~ [id number] 16:08:00* Test Item Value Reference Range Interpretation Comments GLUBED (test code = GLUBED) 159 mg/dL 74-106 H Performed by certified hose operator at [facility] [id number] 11:27:00* Test Item Value Reference Range Interpretation Comments GLUBED (test code = GLUBED) 169 mg/dL 74-106 H Performed by certified hose operator at [facility] [id number] 06:28:00* Test Item Value Reference Range Interpretation Comments GLUBED (test code = GLUBED) 118 mg/dL 74-106 H Performed by certified hose operator at [facility] [id number] 04:38:00* Test Item Value Reference Range Interpretation Comments GLUBED (test code = GLUBED) 173 mg/dL 74-106 H Performed by certified hose operator at [facility] VALPROIC ACID (DEPAKENE)2019-08-13 16:47:00* Test Item Value Reference Range Interpretation Comments VALPROIC ACID (DEPAKENE) (test code = VALP) 130.0 mcg/mL 50.0-100.0 H BASIC METABOLIC [id number] 16:47:00* Test Item Value Reference Range Interpretation Comments SODIUM (test code = NA) 137 mmol/L 136-145 N POTASSIUM (test code = K) 3.7 mmol/L 3.5-5.1 N CHLORIDE (test code = CL) 101.0 mmol/L 98-107 N CARBON DIOXIDE (test code = CO2) 29.0 mmol/L 21-32 N ANION GAP (test code = GAP) 10.7 10-20 N GLUCOSE (test code = GLU) 76 mg/dL 74-106 N BLOOD UREA NITROGEN (test code = BUN) 10 mg/dL 7-18 N GLOMERULAR FILTRATION RATE (test code = GFR) > 60 mL/min >=60 Estimated GFR by using Modified MDRD formula.Chronic kidney disease is defined as either kidney damageor GFR <60 mL/min/1.73 m2 for >3 months. CREATININE (test code = CREAT) 0.70 mg/dL 0.7-1.3 N BUN/CREATININE RATIO (test code = BUN/CREA) 14.3 10-20 N CALCIUM (test code = CA) 9.7 mg/dL 8.5-10.1 N HEPATIC FUNCTION [id number] 16:47:00* Test Item Value Reference Range Interpretation Comments TOTAL PROTEIN (test code = PROT) 8.6 gram/dL 6.4-8.2 H ALBUMIN (test code = ALB) 4.0 g/dL 3.4-5.0 N GLOBULIN (test code = GLOB) 4.6 gram/dL 2.7-4.2 H ALBUMIN/GLOBULIN RATIO (test code = A/G) 0.9 0.75-1.50 N BILIRUBIN TOTAL (test code = BILT) 0.20 mg/dL 0.0-1.0 N BILIRUBIN DIRECT (test code = BILD) 0.06 mg/dL 0.0-0.20 N SGOT/AST (test code = AST) 47 IUnit/L 15-37 H SGPT/ALT (test code = ALT) 38 IUnit/L 12-78 N ALKALINE PHOSPHATASE TOTAL (test code = ALKP) 71 IUnit/L 45-117 N Note change in reference range due to change in reagent. [id number] 16:47:00* Test Item Value Reference Range Interpretation Comments ALCOHOL (test code = ALC) < 3 mg/dL 0.0-3.0 N -- INTERPRETIVE DATA NOTE: POSITIVE SCREENING RESULTS SHOULD BE CONSIDERED PRESUMPTIVE.WHEN COLLECTED FOR MEDICAL PURPOSES ONLY. SPECIMEN WILL NOTBE COLLECTED BY CHAIN OF CUSTODY.IF A CONFIRMATION OF POSITIVE RESULTS IS DESIRED, ACONFIRMATION TEST MUST BE REQUESTED BY THE PHYSICIAN AT ANADDITIONAL CHARGE TO THE PATIENT. BASIC METABOLIC [id number] 16:38:00* Test Item Value Reference Range Interpretation Comments SODIUM (test code = NA) 137 mmol/L 136-145 N POTASSIUM (test code = K) 3.7 mmol/L 3.5-5.1 N CHLORIDE (test code = CL) 101.0 mmol/L 98-107 N CARBON DIOXIDE (test code = CO2) mmol/L 21-32 ANION GAP (test code = GAP) 10-20 GLUCOSE (test code = GLU) mg/dL 74-106 BLOOD UREA NITROGEN (test code = BUN) mg/dL 7-18 GLOMERULAR FILTRATION RATE (test code = GFR) mL/min >=60 CREATININE (test code = CREAT) mg/dL 0.7-1.3 BUN/CREATININE RATIO (test code = BUN/CREA) 10-20 CALCIUM (test code = CA) mg/dL 8.5-10.1 HEPATIC FUNCTION [id number] 16:38:00* Test Item Value Reference Range Interpretation Comments TOTAL PROTEIN (test code = PROT) gram/dL 6.4-8.2 ALBUMIN (test code = ALB) g/dL 3.4-5.0 GLOBULIN (test code = GLOB) gram/dL 2.7-4.2 ALBUMIN/GLOBULIN RATIO (test code = A/G) 0.75-1.50 BILIRUBIN TOTAL (test code = BILT) mg/dL 0.0-1.0 BILIRUBIN DIRECT (test code = BILD) mg/dL 0.0-0.20 SGOT/AST (test code = AST) IUnit/L 15-37 SGPT/ALT (test code = ALT) IUnit/L 12-78 ALKALINE PHOSPHATASE TOTAL (test code = ALKP) IUnit/L 45-117 [id number] 16:38:00* Test Item Value Reference Range Interpretation Comments ALCOHOL (test code = ALC) mg/dL 0-3 CBC W/O [id number] 16:37:00* Test Item Value Reference Range Interpretation Comments WHITE BLOOD CELL (test code = WBC) 10.1 K/mm3 4.5-12.5 N RED BLOOD CELL (test code = RBC) 4.14 mill/mm3 4.0-5.8 N HEMOGLOBIN (test code = HGB) 13.3 gram/dL 13.0-17.5 N HEMATOCRIT (test code = HCT) 38.4 % 42.0-52.0 L MEAN CELL VOLUME (test code = MCV) 92.8 fL 80-98 N MEAN CELL HGB (test code = MCH) 32.1 picogram 27.0-33.0 N MEAN CELL HGB CONCETRATION (test code = MCHC) 34.6 gram/dL 33.0-36. 0 N RED CELL DISTRIBUTION WIDTH (test code = RDW) 12.9 % 11.6-16. 2 N PLATELET COUNT (test code = PLT) 333 K/mm3 150-450 N MEAN PLATELET VOLUME (test code = MPV) 9.0 fL 6.7-11.0 N CBC W/O [id number] 16:30:00* Test Item Value Reference Range Interpretation Comments WHITE BLOOD CELL (test code = WBC) K/mm3 4.5-12.5 RED BLOOD CELL (test code = RBC) mill/mm3 4.0-5.8 HEMOGLOBIN (test code = HGB) 13.3 gram/dL 13.0-17.5 N HEMATOCRIT (test code = HCT) % 42.0-52.0 MEAN CELL VOLUME (test code = MCV) fL 80-98 MEAN CELL HGB (test code = MCH) picogram 27.0-33.0 MEAN CELL HGB CONCETRATION (test code = MCHC) gram/dL 33.0-36. 0 RED CELL DISTRIBUTION WIDTH (test code = RDW) % 11.6-16. 2 PLATELET COUNT (test code = PLT) K/mm3 150-450 MEAN PLATELET VOLUME (test code = MPV) fL 6.7-11.0 URINALYSIS [id number] 14:34:00* Test Item Value Reference Range Interpretation Comments UA COLOR (test code = COLU) YELLOW YELLOW UA APPEARANCE (test code = APPU) CLEAR CLEAR UA GLUCOSE DIPSTICK (test code = DGLUU) 200 (2+) mg/dL NEGATIVE A UA BILIRUBIN DIPSTICK (test code = BILU) NEGATIVE mg/dL NEGATIVE UA KETONE DIPSTICK (test code = KETU) 20 (1+) mg/dL NEGATIVE A UA SPECIFIC GRAVITY (test code = SGU) 1.029 1.001-1.035 UA BLOOD DIPSTICK (test code = GREGOR) Negative mg/dL NEGATIVE UA PH DIPSTICK (test code = REE) 6.0 5.0-8.0 UA PROTEIN DIPSTICK (test code = PROU) 30 (1+) mg/dL NEGATIVE A UA UROBILINIOGEN DIPSTICK (test code = URO) Normal mg/dL NEGATIVE UA NITRITE DIPSTICK (test code = RUFINO) NEGATIVE NEGATIVE UA LEUKOCYTE ESTERASE W REFLEX (test code = LEUUR) NEGATIVE Rylee/uL NEGATIVE UA WBC (test code = WBCU) 0-5 per HPF 0-5 UA RBC (test code = RBCU) 0-3 #/HPF 0-5 UA EPITHELIAL CELLS (test code = EPIU) FEW per HPF FEW UA BACTERIA (test code = BACU) FEW #/HPF NONE A UA HYALINE CAST (test code = HYALU) 3-5 #/LPF 0-5 UA MUCUS (test code = MUCU) MANY #/LPF FEW A Urine Source? Clean CatchDRUGS OF ABUSE SCREEN [id number] 14:34:00* Test Item Value Reference Range Interpretation Comments URN COCAINE (test code = COCAURN) NEGATIVE <300 ng/mL URN CANNABINOIDS (test code = CANNABURN) NEGATIVE <50 ng/mL URN AMPHETAMINE (test code = AMPHETURN) NEGATIVE <1000 ng/mL URN BARBITURATE (test code = BARBITURN) NEGATIVE <200 ng/mL URN BENZODIAZEPINE (test code = BENZOURN) NEGATIVE <200 ng/mL URN OPIATES (test code = OPIATURN) NEGATIVE <300 ng/mL URN PHENCYCLIDINE (PCP) (test code = PHENCURN) NEGATIVE <25 ng/ mL URN METHADONE (test code = METHAURN) NEGATIVE <300 ng/mL Urine Source? Clean CatchURINALYSIS [id number] 14:20:00* Test Item Value Reference Range Interpretation Comments UA COLOR (test code = COLU) YELLOW YELLOW UA APPEARANCE (test code = APPU) CLEAR CLEAR UA GLUCOSE DIPSTICK (test code = DGLUU) 200 (2+) mg/dL NEGATIVE A UA BILIRUBIN DIPSTICK (test code = BILU) NEGATIVE mg/dL NEGATIVE UA KETONE DIPSTICK (test code = KETU) 20 (1+) mg/dL NEGATIVE A UA SPECIFIC GRAVITY (test code = SGU) 1.029 1.001-1.035 UA BLOOD DIPSTICK (test code = GREGOR) Negative mg/dL NEGATIVE UA PH DIPSTICK (test code = REE) 6.0 5.0-8.0 UA PROTEIN DIPSTICK (test code = PROU) 30 (1+) mg/dL NEGATIVE A UA UROBILINIOGEN DIPSTICK (test code = URO) Normal mg/dL NEGATIVE UA NITRITE DIPSTICK (test code = RUFINO) NEGATIVE NEGATIVE UA LEUKOCYTE ESTERASE W REFLEX (test code = LEUUR) NEGATIVE Rylee/uL NEGATIVE UA WBC (test code = WBCU) 0-5 per HPF 0-5 UA RBC (test code = RBCU) 0-3 #/HPF 0-5 UA EPITHELIAL CELLS (test code = EPIU) FEW per HPF FEW UA BACTERIA (test code = BACU) FEW #/HPF NONE A UA HYALINE CAST (test code = HYALU) 3-5 #/LPF 0-5 UA MUCUS (test code = MUCU) MANY #/LPF FEW A Urine Source? Clean CatchDRUGS OF ABUSE SCREEN [id number] 14:20:00* Test Item Value Reference Range Interpretation Comments URN COCAINE (test code = COCAURN) <300 ng/mL URN CANNABINOIDS (test code = CANNABURN) <50 ng/mL URN AMPHETAMINE (test code = AMPHETURN) <1000 ng/mL URN BARBITURATE (test code = BARBITURN) <200 ng/mL URN BENZODIAZEPINE (test code = BENZOURN) <200 ng/mL URN OPIATES (test code = OPIATURN) <300 ng/mL URN PHENCYCLIDINE (PCP) (test code = PHENCURN) <25 ng/ mL URN METHADONE (test code = METHAURN) <300 ng/mL Urine Source? Clean CatchBASIC METABOLIC [id number] 12:53:00* Test Item Value Reference Range Interpretation Comments SODIUM (test code = NA) 132 mmol/L 136-145 L POTASSIUM (test code = K) 5.1 mmol/L 3.5-5.1 N CHLORIDE (test code = CL) 96.0 mmol/L 98-107 L CARBON DIOXIDE (test code = CO2) 30.0 mmol/L 21-32 N ANION GAP (test code = GAP) 11.1 10-20 N GLUCOSE (test code = GLU) 105 mg/dL 74-106 N BLOOD UREA NITROGEN (test code = BUN) 14 mg/dL 7-18 N GLOMERULAR FILTRATION RATE (test code = GFR) > 60 mL/min >=60 Estimated GFR by using Modified MDRD formula.Chronic kidney disease is defined as either kidney damageor GFR <60 mL/min/1.73 m2 for >3 months. CREATININE (test code = CREAT) 0.80 mg/dL 0.7-1.3 N BUN/CREATININE RATIO (test code = BUN/CREA) 17.5 10-20 N CALCIUM (test code = CA) 9.8 mg/dL 8.5-10.1 N HEPATIC FUNCTION [id number] 12:53:00* Test Item Value Reference Range Interpretation Comments TOTAL PROTEIN (test code = PROT) 9.1 gram/dL 6.4-8.2 H ALBUMIN (test code = ALB) 4.2 g/dL 3.4-5.0 N GLOBULIN (test code = GLOB) 4.9 gram/dL 2.7-4.2 H ALBUMIN/GLOBULIN RATIO (test code = A/G) 0.9 0.75-1.50 N BILIRUBIN TOTAL (test code = BILT) 0.50 mg/dL 0.0-1.0 N BILIRUBIN DIRECT (test code = BILD) 0.08 mg/dL 0.0-0.20 N SGOT/AST (test code = AST) 54 IUnit/L 15-37 H SGPT/ALT (test code = ALT) 34 IUnit/L 12-78 N ALKALINE PHOSPHATASE TOTAL (test code = ALKP) 75 IUnit/L 45-117 N Note change in reference range due to change in reagent. [id number] 12:53:00* Test Item Value Reference Range Interpretation Comments LIPASE (test code = LIP) 62 U/L 73.0-393.0 L VALPROIC ACID (DEPAKENE)2019-06-24 12:53:00* Test Item Value Reference Range Interpretation Comments VALPROIC ACID (DEPAKENE) (test code = VALP) 104.0 mcg/mL 50.0-100.0 H VALPROIC ACID, [id number] 12:53:00* Test Item Value Reference Range Interpretation Comments VALPROIC ACID, FREE (test code = VALPF) mcg/mL 5-10 - CT C-SPINE W/O [id number] 12:45:00 Name: GUSTAVO CARPENTER [facility] : 1980 Age/S: 38 / M [address] Unit #: [id number] Loc: [place] [address] Phys: Adan Villegas MD Acct: [id number] Dis Date: Status: REG ER PHONE #: [phone] Exam Date: 06/24/2019 1230 FAX #: [phone] Reason: NECK PAIN EXAMS: CPT CODE: [id number] CT C-SPINE W/O CONTRAST 16529 HISTORY: Seizure TECHNIQUE: Noncontrast 2.[address] of the head and cervical spine. Examination acquired within 24 hours of arrival. Automated exposure control for dose reduction. COMPARISON: None FINDINGS: No lacerations or contusions of the scalp or facial soft tissues. Right parietal bone craniotomy is redemonstrated and unchanged from the previous examination. No acute hemorrhage. No intracranial mass, mass effect, or midline shift. No effacement of the sulci or marmolejo-white matter interface. No cortical atrophy. No signs of white matter small- vessel disease. No hydrocephalus.. No extra-axial fluid c ollection. Bilateral basal ganglia calcifications are redemonstrated. Ther e is also calcification in the white matter adjacent to the anterior horn of the right ventricle that is unchanged in appearance from the previous s tudy Visualized paranasal sinuses are clear. Mastoid air ce lls and middle ear cavities are clear. Orbital contents are unremarkable. No acute fracture of the cervical spine. No subluxation. C raniocervical and cervicothoracic articulations are appropriate. Vertebral body heights are preserved. Intervertebral disc heights are pres erved. No prevertebral or paraspinal soft tissue abnormality. Lung apices are clear. IMPRESSION: Negative CT head and cervical spine. Location: [facility] PAGE 1 Signed Report (CONTINUED) Name: GUSTAVO ROSADO [facility] : [birth year] Age/S: 38 / M [address] Unit #: [id number] Loc: [place] [address] Phys: Adan Villegas MD Acct: [id number] Dis Date: Status: REG ER PHONE #: [phone] Exam Date: 06/24/2019 1230 FAX #: [phone] Reason: NECK PAIN EXAMS: CPT CODE: [id number] CT C-SPINE W/O CONTRAST 07750 <Continued> at 1245 Reported and signed by: Anthony Samayoa MD CC: Adan Villegas MD Technologist:Viridiana Ratliff RT(R),CT; CTDI: DLP: Trnscb Date/Time: 06/24/2019 (1245) [email or web address] Orig Print D/T: S: 06/24/2019 (5903) PAGE 2 Signed Report - CT HEAD/BRAIN W/O [id number] 12:45:00 Name: GUSTAVO CARPENTER [facility] : 1980 Age/S: 38 / M [address] [facility] Unit #: [id number] Loc: [place] [address] Phys: Adan Villegas MD Acct: [id number] Dis Date: Status: REG ER PHONE #: [phone] Exam Date: 06/24/2019 1230 FAX #: [phone] Reason: Seizure EXAMS: CPT CODE: [id number] CT HEAD/BRAIN W/O CONT 38252 HISTORY: Seizure TECHNIQUE: Noncontrast 2.[address] of the head and cervical spine. Examination acquired within 24 hours of arrival. Automated exposure control for dose reduction. COMPARISON: None FINDINGS: No lacerations or contusions of the scalp or facial soft tissues. Right parietal bone craniotomy is redemonstrated and unchanged from the previous examination. No acute hemorrhage. No intracranial mass, mass effect, or midline shift. No effacement of the sulci or marmolejo-white matter interface. No cortical atrophy. No signs of white matter small-vessel disease. No hydrocephalus.. No extra-axial fluid collection. Bilateral basal ganglia calcifications are redemonstrated. There is also calcification in the white matter adjacent to the anterior horn of the right ventricle that is unchanged in appearance from the previous study Visualized paranasal sinuses are clear. Mastoid air cells and middle ear cavities are clear. Orbital contents are unremarkable. No acute fracture of the cervical spine. No subluxation. Craniocervical and cervicothoracic articulations are appropriate. Vertebral body heights are preserved. Intervertebral disc heights are preserved. No prevertebral or paraspinal soft tissue abnormality. Lung apices are clear. IMPRESSION: Negative CT head and cervical spine. Location: [facility] PAGE 1 Signed Report (CONTINUED) Name: GUSTAVO CARPENTER [facility] : 1980 Age/S: 38 / M [address] [facility] Unit #: [id number] Loc: [place] [address] Phys: Adan Villegas MD Acct: [id number] Dis Date: Status: REG ER PHONE #: [phone] Exam Date: 06/24/2019 1230 FAX #: [phone] Reason: Seizure EXAMS: CPT CODE: [id number] CT HEAD/BRAIN W/O CONT 62963 <Continued> at 1245 Reported and signed by: Anthony Samayoa MD CC: Adan Villegas MD Technologist:Viridiana Ratliff RT(R),CT; CTDI: DLP: Trnscb Date/Time: 06/24/2019 (6175) [email or web address] Orig Print D/T: S: 06/24/2019 (9019) PAGE 2 Signed Report CBC W/O [id number] 12:40:00 * Test Item Value Reference Range Interpretation Comments WHITE BLOOD CELL (test code = WBC) 8.4 K/mm3 4.5-12.5 N RED BLOOD CELL (test code = RBC) 4.44 mill/mm3 4.0-5.8 N HEMOGLOBIN (test code = HGB) 13.9 gram/dL 13.0-17.5 N HEMATOCRIT (test code = HCT) 40.0 % 42.0-52.0 L MEAN CELL VOLUME (test code = MCV) 90.1 fL 80-98 N MEAN CELL HGB (test code = MCH) 31.3 picogram 27.0-33.0 N MEAN CELL HGB CONCETRATION (test code = MCHC) 34.8 gram/dL 33.0-36. 0 N RED CELL DISTRIBUTION WIDTH (test code = RDW) 12.8 % 11.6-16. 2 N PLATELET COUNT (test code = PLT) 332 K/mm3 150-450 N MEAN PLATELET VOLUME (test code = MPV) 9.1 fL 6.7-11.0 N PROTHROMBIN [id number] 12:39:00* Test Item Value Reference Range Interpretation Comments PROTHROMBIN TIME PATIENT (test code = PTP) 12.4 seconds 9.0-14.0 N INTERNATIONAL NORMAL RATIO (test code = INR) 1.1 0.8-1.2 N The therapeutic range for oral anticoagulant therapy formost indications is an international normalized ratio (INR)of between 2.0 and 3.0. The recommended therapeutic INRrange for various clinical situations is listed below: Clinical Situation INR range Pulmonary e mbolism treatment (2.0-3.0)Venous thrombosis treatmentVenous thrombosis prophylaxis (high risk surgery)Prevention of systemic embolism from: Acute myocardial infarction Valvular heart disease Atrial fibrillation Mechanical prosthetic heart valves (2.5-3.5) IS PATIENT ON ANTICOAGULANTS? NTHROMBOPLASTIN TIME [id number] 12:39:00* Test Item Value Reference Range Interpretation Comments THROMBOPLASTIN TIME PARTIAL (test code = PTT) 39.1 seconds 25.0-36. 5 H IS PATIENT ON ANTICOAGULANTS? NBASIC METABOLIC [id number] 12:39:00* Test Item Value Reference Range Interpretation Comments SODIUM (test code = NA) 132 mmol/L 136-145 L POTASSIUM (test code = K) 5.1 mmol/L 3.5-5.1 N CHLORIDE (test code = CL) 96.0 mmol/L 98-107 L CARBON DIOXIDE (test code = CO2) mmol/L 21-32 ANION GAP (test code = GAP) 10-20 GLUCOSE (test code = GLU) mg/dL 74-106 BLOOD UREA NITROGEN (test code = BUN) mg/dL 7-18 GLOMERULAR FILTRATION RATE (test code = GFR) mL/min >=60 CREATININE (test code = CREAT) mg/dL 0.7-1.3 BUN/CREATININE RATIO (test code = BUN/CREA) 10-20 CALCIUM (test code = CA) mg/dL 8.5-10.1 HEPATIC FUNCTION [id number] 12:39:00* Test Item Value Reference Range Interpretation Comments TOTAL PROTEIN (test code = PROT) gram/dL 6.4-8.2 ALBUMIN (test code = ALB) g/dL 3.4-5.0 GLOBULIN (test code = GLOB) gram/dL 2.7-4.2 ALBUMIN/GLOBULIN RATIO (test code = A/G) 0.75-1.50 BILIRUBIN TOTAL (test code = BILT) mg/dL 0.0-1.0 BILIRUBIN DIRECT (test code = BILD) mg/dL 0.0-0.20 SGOT/AST (test code = AST) IUnit/L 15-37 SGPT/ALT (test code = ALT) IUnit/L 12-78 ALKALINE PHOSPHATASE TOTAL (test code = ALKP) IUnit/L 45-117 [id number] 12:39:00* Test Item Value Reference Range Interpretation Comments LIPASE (test code = LIP) U/L 73.0-393.0 CBC W/O [id number] 12:25:00* Test Item Value Reference Range Interpretation Comments WHITE BLOOD CELL (test code = WBC) K/mm3 4.5-12.5 RED BLOOD CELL (test code = RBC) mill/mm3 4.0-5.8 HEMOGLOBIN (test code = HGB) 13.9 gram/dL 13.0-17.5 N HEMATOCRIT (test code = HCT) % 42.0-52.0 MEAN CELL VOLUME (test code = MCV) fL 80-98 MEAN CELL HGB (test code = MCH) picogram 27.0-33.0 MEAN CELL HGB CONCETRATION (test code = MCHC) gram/dL 33.0-36. 0 RED CELL DISTRIBUTION WIDTH (test code = RDW) % 11.6-16. 2 PLATELET COUNT (test code = PLT) K/mm3 150-450 MEAN PLATELET VOLUME (test code = MPV) fL 6.7-11.0 BASIC METABOLIC [id number] 17:58:00* Test Item Value Reference Range Interpretation Comments SODIUM (test code = NA) 135 mmol/L 136-145 L POTASSIUM (test code = K) 4.4 mmol/L 3.5-5.1 N CHLORIDE (test code = CL) 99.0 mmol/L 98-107 N CARBON DIOXIDE (test code = CO2) 32.0 mmol/L 21-32 N ANION GAP (test code = GAP) 8.4 10-20 L GLUCOSE (test code = GLU) 122 mg/dL 74-106 H BLOOD UREA NITROGEN (test code = BUN) 17 mg/dL 7-18 N GLOMERULAR FILTRATION RATE (test code = GFR) > 60 mL/min >=60 Estimated GFR by using Modified MDRD formula.Chronic kidney disease is defined as either kidney damageor GFR <60 mL/min/1.73 m2 for >3 months. CREATININE (test code = CREAT) 0.80 mg/dL 0.7-1.3 N BUN/CREATININE RATIO (test code = BUN/CREA) 21.3 10-20 H CALCIUM (test code = CA) 9.6 mg/dL 8.5-10.1 N VALPROIC ACID (DEPAKENE)2019-06-09 17:58:00* Test Item Value Reference Range Interpretation Comments VALPROIC ACID (DEPAKENE) (test code = VALP) 104.0 mcg/mL 50.0-100.0 H CBC W/O [id number] 17:45:00* Test Item Value Reference Range Interpretation Comments WHITE BLOOD CELL (test code = WBC) 9.9 K/mm3 4.5-12.5 N RED BLOOD CELL (test code = RBC) 3.94 mill/mm3 4.0-5.8 L HEMOGLOBIN (test code = HGB) 12.5 gram/dL 13.0-17.5 L HEMATOCRIT (test code = HCT) 35.7 % 42.0-52.0 L MEAN CELL VOLUME (test code = MCV) 90.6 fL 80-98 N MEAN CELL HGB (test code = MCH) 31.7 picogram 27.0-33.0 N MEAN CELL HGB CONCETRATION (test code = MCHC) 35.0 gram/dL 33.0-36. 0 N RED CELL DISTRIBUTION WIDTH (test code = RDW) 13.2 % 11.6-16. 2 N PLATELET COUNT (test code = PLT) 330 K/mm3 150-450 N MEAN PLATELET VOLUME (test code = MPV) 9.1 fL 6.7-11.0 N - CT HEAD/BRAIN W/O [id number] 17:06:00 Name: GUSTAVO CARPENTER [facility] : 1980 Age/S: 38 / M [address] [facility] Unit #: [id number] Loc: [place] [address] Phys: Oskar Mena DO Acct: [id number] Dis Date: Status: PRE ER PHONE #: [phone] Exam Date: 06/09/2019 1650 FAX #: [phone] Reason: Seizure EXAMS: CPT CODE: [id number] CT HEAD/BRAIN W/O CONT 28053 HISTORY: Seizure. COMPARISON: CT brain from June 01, 2019. Location: TH. CT brain without contrast: Automated exposure control. No acute intracranial bleeds or extra-axial collections and there is no acute territorial vascular infarction. The johnson-white matter dif ferentiation is preserved. The sulci, gyri, ventricles and subarachnoid sp aces and the basilar cisterns are normal for patient's age. No herniation or hydrocephalus or midline shift is noted. Fourth ventricle remains midli ne. Portions of the visualized paranasal sinuses are unremarkable. Haven holes noted within the right frontal and parietal bones. IMPRESSION: No acute intracranial bleeds or extra- axial collections. No acute territorial vascular infarction. No herniation or hydrocephalus or midline shift. at 1706 Reported and signed by: Juan Low M.D. CC: Oskar Mena DO Technologist:Viridiana Gerardo dhaval RT(R),CT CTDI: DLP: Trnscb Date/Time: 06/09/2019 (170) Guevara [id number] Orig Print D/T: S: 06/09/2019 (9164) PAGE 1 Signed Report GLUBED 2019-06-04 11:31:00* Test Item Value Reference Range Interpretation Comments GLUBED (test code = GLUBED) 132 mg/dL 74-106 H Performed by certified hose operator at [facility] [id number] 07:30:00* Test Item Value Reference Range Interpretation Comments GLUBED (test code = GLUBED) 123 mg/dL 74-106 H Performed by certified hose operator at [facility] BASIC METABOLIC [id number] 07:18:00* Test Item Value Reference Range Interpretation Comments SODIUM (test code = NA) 138 mmol/L 136-145 N POTASSIUM (test code = K) 4.6 mmol/L 3.5-5.1 N CHLORIDE (test code = CL) 102.0 mmol/L 98-107 N CARBON DIOXIDE (test code = CO2) 30.0 mmol/L 21-32 N ANION GAP (test code = GAP) 10.6 10-20 N GLUCOSE (test code = GLU) 111 mg/dL 74-106 H BLOOD UREA NITROGEN (test code = BUN) 14 mg/dL 7-18 N GLOMERULAR FILTRATION RATE (test code = GFR) > 60 mL/min >=60 Estimated GFR by using Modified MDRD formula.Chronic kidney disease is defined as either kidney damageor GFR <60 mL/min/1.73 m2 for >3 months. CREATININE (test code = CREAT) 0.70 mg/dL 0.7-1.3 N BUN/CREATININE RATIO (test code = BUN/CREA) 20.0 10-20 N CALCIUM (test code = CA) 9.3 mg/dL 8.5-10.1 N BASIC METABOLIC [id number] 07:15:00* Test Item Value Reference Range Interpretation Comments SODIUM (test code = NA) 138 mmol/L 136-145 N POTASSIUM (test code = K) 4.6 mmol/L 3.5-5.1 N CHLORIDE (test code = CL) 102.0 mmol/L 98-107 N CARBON DIOXIDE (test code = CO2) mmol/L 21-32 ANION GAP (test code = GAP) 10-20 GLUCOSE (test code = GLU) mg/dL 74-106 BLOOD UREA NITROGEN (test code = BUN) mg/dL 7-18 GLOMERULAR FILTRATION RATE (test code = GFR) mL/min >=60 CREATININE (test code = CREAT) mg/dL 0.7-1.3 BUN/CREATININE RATIO (test code = BUN/CREA) 10-20 CALCIUM (test code = CA) mg/dL 8.5-10.1 CBC W/AUTO [id number] 07:14:00* Test Item Value Reference Range Interpretation Comments WHITE BLOOD CELL (test code = WBC) 8.2 K/mm3 4.5-12.5 N RED BLOOD CELL (test code = RBC) 4.13 mill/mm3 4.0-5.8 N HEMOGLOBIN (test code = HGB) 13.1 gram/dL 13.0-17.5 N HEMATOCRIT (test code = HCT) 37.2 % 42.0-52.0 L MEAN CELL VOLUME (test code = MCV) 90.1 fL 80-98 N MEAN CELL HGB (test code = MCH) 31.7 picogram 27.0-33.0 N MEAN CELL HGB CONCETRATION (test code = MCHC) 35.2 gram/dL 33.0-36. 0 N RED CELL DISTRIBUTION WIDTH (test code = RDW) 13.0 % 11.6-16. 2 N RED CELL DISTRIBUTION WIDTH SD (test code = RDW-SD) 42.5 fL 37 .0-51.0 N PLATELET COUNT (test code = PLT) 336 K/mm3 150-450 N MEAN PLATELET VOLUME (test code = MPV) 9.1 fL 6.7-11.0 N NEUTROPHIL % (test code = NT%) 44.5 % 39.0-69.0 N IMMATURE GRANULOCYTE % (test code = IG%) 0.5 % 0.0-5.0 N LYMPHOCYTE % (test code = LY%) 44.3 % 25.0-55.0 N MONOCYTE % (test code = MO%) 7.5 % 0.0-10.0 N EOSINOPHIL % (test code = EO%) 2.6 % 0.0-5.0 N BASOPHIL % (test code = BA%) 0.6 % 0.0-1.0 N NUCLEATED RBC % (test code = NRBC%) 0.0 % 0-0 N NEUTROPHIL # (test code = NT#) 3.64 K/mm3 1.8-7.7 N IMMATURE GRANULOCYTE # (test code = IG#) 0.04 x10 3/uL 0-0.03 H LYMPHOCYTE # (test code = LY#) 3.62 K/mm3 1.0-5.0 N MONOCYTE # (test code = MO#) 0.61 K/mm3 0-0.8 N EOSINOPHIL # (test code = EO#) 0.21 K/mm3 0.0-0.5 N BASOPHIL # (test code = BA#) 0.05 K/mm3 0.0-0.2 N NUCLEATED RBC # (test code = NRBC#) 0.00 K/mm3 0.0-0.1 N MANUAL DIFF REQUIRED (test code = MDIFF) NO CBC W/AUTO [id number] 07:08:00* Test Item Value Reference Range Interpretation Comments WHITE BLOOD CELL (test code = WBC) K/mm3 4.5-12.5 RED BLOOD CELL (test code = RBC) mill/mm3 4.0-5.8 HEMOGLOBIN (test code = HGB) 13.1 gram/dL 13.0-17.5 N HEMATOCRIT (test code = HCT) % 42.0-52.0 MEAN CELL VOLUME (test code = MCV) fL 80-98 MEAN CELL HGB (test code = MCH) picogram 27.0-33.0 MEAN CELL HGB CONCETRATION (test code = MCHC) gram/dL 33.0-36. 0 RED CELL DISTRIBUTION WIDTH (test code = RDW) % 11.6-16. 2 RED CELL DISTRIBUTION WIDTH SD (test code = RDW-SD) fL 37 .0-51.0 PLATELET COUNT (test code = PLT) K/mm3 150-450 MEAN PLATELET VOLUME (test code = MPV) fL 6.7-11.0 NEUTROPHIL % (test code = NT%) % 39.0-69.0 IMMATURE GRANULOCYTE % (test code = IG%) % 0.0-5.0 LYMPHOCYTE % (test code = LY%) % 25.0-55.0 MONOCYTE % (test code = MO%) % 0.0-10.0 EOSINOPHIL % (test code = EO%) % 0.0-5.0 BASOPHIL % (test code = BA%) % 0.0-1.0 NEUTROPHIL # (test code = NT#) K/mm3 1.8-7.7 LYMPHOCYTE # (test code = LY#) K/mm3 1.0-5.0 MONOCYTE # (test code = MO#) K/mm3 0-0.8 EOSINOPHIL # (test code = EO#) K/mm3 0.0-0.5 BASOPHIL # (test code = BA#) K/mm3 0.0-0.2 [id number] 20:23:00* Test Item Value Reference Range Interpretation Comments GLUBED (test code = GLUBED) 230 mg/dL 74-106 H Performed by certified hose operator at [facility] [id number] 18:07:00* Test Item Value Reference Range Interpretation Comments GLUBED (test code = GLUBED) 215 mg/dL 74-106 H [facility]~ [id number] 11:54:00* Test Item Value Reference Range Interpretation Comments GLUBED (test code = GLUBED) 143 mg/dL 74-106 H Performed by certified hose operator at [facility] BASIC METABOLIC [id number] 09:46:00* Test Item Value Reference Range Interpretation Comments SODIUM (test code = NA) 139 mmol/L 136-145 N POTASSIUM (test code = K) 4.8 mmol/L 3.5-5.1 N CHLORIDE (test code = CL) 101.0 mmol/L 98-107 N CARBON DIOXIDE (test code = CO2) 31.0 mmol/L 21-32 N ANION GAP (test code = GAP) 11.8 10-20 N GLUCOSE (test code = GLU) 157 mg/dL 74-106 H BLOOD UREA NITROGEN (test code = BUN) 10 mg/dL 7-18 N GLOMERULAR FILTRATION RATE (test code = GFR) > 60 mL/min >=60 Estimated GFR by using Modified MDRD formula.Chronic kidney disease is defined as either kidney damageor GFR <60 mL/min/1.73 m2 for >3 months. CREATININE (test code = CREAT) 0.80 mg/dL 0.7-1.3 N BUN/CREATININE RATIO (test code = BUN/CREA) 12.5 10-20 N CALCIUM (test code = CA) 9.4 mg/dL 8.5-10.1 N BASIC METABOLIC [id number] 09:40:00* Test Item Value Reference Range Interpretation Comments SODIUM (test code = NA) 139 mmol/L 136-145 N POTASSIUM (test code = K) 4.8 mmol/L 3.5-5.1 N CHLORIDE (test code = CL) 101.0 mmol/L 98-107 N CARBON DIOXIDE (test code = CO2) mmol/L 21-32 ANION GAP (test code = GAP) 10-20 GLUCOSE (test code = GLU) mg/dL 74-106 BLOOD UREA NITROGEN (test code = BUN) mg/dL 7-18 GLOMERULAR FILTRATION RATE (test code = GFR) mL/min >=60 CREATININE (test code = CREAT) mg/dL 0.7-1.3 BUN/CREATININE RATIO (test code = BUN/CREA) 10-20 CALCIUM (test code = CA) mg/dL 8.5-10.1 CBC W/AUTO [id number] 09:36:00* Test Item Value Reference Range Interpretation Comments WHITE BLOOD CELL (test code = WBC) 6.3 K/mm3 4.5-12.5 N RED BLOOD CELL (test code = RBC) 4.18 mill/mm3 4.0-5.8 N HEMOGLOBIN (test code = HGB) 13.2 gram/dL 13.0-17.5 N HEMATOCRIT (test code = HCT) 38.5 % 42.0-52.0 L MEAN CELL VOLUME (test code = MCV) 92.1 fL 80-98 N MEAN CELL HGB (test code = MCH) 31.6 picogram 27.0-33.0 N MEAN CELL HGB CONCETRATION (test code = MCHC) 34.3 gram/dL 33.0-36. 0 N RED CELL DISTRIBUTION WIDTH (test code = RDW) 13.2 % 11.6-16. 2 N RED CELL DISTRIBUTION WIDTH SD (test code = RDW-SD) 44.7 fL 37 .0-51.0 N PLATELET COUNT (test code = PLT) 333 K/mm3 150-450 N MEAN PLATELET VOLUME (test code = MPV) 9.0 fL 6.7-11.0 N NEUTROPHIL % (test code = NT%) 46.5 % 39.0-69.0 N IMMATURE GRANULOCYTE % (test code = IG%) 0.5 % 0.0-5.0 N LYMPHOCYTE % (test code = LY%) 42.6 % 25.0-55.0 N MONOCYTE % (test code = MO%) 6.5 % 0.0-10.0 N EOSINOPHIL % (test code = EO%) 3.3 % 0.0-5.0 N BASOPHIL % (test code = BA%) 0.6 % 0.0-1.0 N NUCLEATED RBC % (test code = NRBC%) 0.0 % 0-0 N NEUTROPHIL # (test code = NT#) 2.93 K/mm3 1.8-7.7 N IMMATURE GRANULOCYTE # (test code = IG#) 0.03 x10 3/uL 0-0.03 N LYMPHOCYTE # (test code = LY#) 2.69 K/mm3 1.0-5.0 N MONOCYTE # (test code = MO#) 0.41 K/mm3 0-0.8 N EOSINOPHIL # (test code = EO#) 0.21 K/mm3 0.0-0.5 N BASOPHIL # (test code = BA#) 0.04 K/mm3 0.0-0.2 N NUCLEATED RBC # (test code = NRBC#) 0.00 K/mm3 0.0-0.1 N CBC W/AUTO [id number] 09:34:00* Test Item Value Reference Range Interpretation Comments WHITE BLOOD CELL (test code = WBC) K/mm3 4.5-12.5 RED BLOOD CELL (test code = RBC) mill/mm3 4.0-5.8 HEMOGLOBIN (test code = HGB) 13.2 gram/dL 13.0-17.5 N HEMATOCRIT (test code = HCT) % 42.0-52.0 MEAN CELL VOLUME (test code = MCV) fL 80-98 MEAN CELL HGB (test code = MCH) picogram 27.0-33.0 MEAN CELL HGB CONCETRATION (test code = MCHC) gram/dL 33.0-36. 0 RED CELL DISTRIBUTION WIDTH (test code = RDW) % 11.6-16. 2 RED CELL DISTRIBUTION WIDTH SD (test code = RDW-SD) fL 37 .0-51.0 PLATELET COUNT (test code = PLT) K/mm3 150-450 MEAN PLATELET VOLUME (test code = MPV) fL 6.7-11.0 NEUTROPHIL % (test code = NT%) % 39.0-69.0 IMMATURE GRANULOCYTE % (test code = IG%) % 0.0-5.0 LYMPHOCYTE % (test code = LY%) % 25.0-55.0 MONOCYTE % (test code = MO%) % 0.0-10.0 EOSINOPHIL % (test code = EO%) % 0.0-5.0 BASOPHIL % (test code = BA%) % 0.0-1.0 NEUTROPHIL # (test code = NT#) K/mm3 1.8-7.7 LYMPHOCYTE # (test code = LY#) K/mm3 1.0-5.0 MONOCYTE # (test code = MO#) K/mm3 0-0.8 EOSINOPHIL # (test code = EO#) K/mm3 0.0-0.5 BASOPHIL # (test code = BA#) K/mm3 0.0-0.2 [id number] 06:27:00* Test Item Value Reference Range Interpretation Comments GLUBED (test code = GLUBED) 104 mg/dL 74-106 N Performed by certified hose operator at [facility] [id number] 21:01:00* Test Item Value Reference Range Interpretation Comments GLUBED (test code = GLUBED) 215 mg/dL 74-106 H Performed by certified hose operator at [facility] [id number] 16:13:00* Test Item Value Reference Range Interpretation Comments GLUBED (test code = GLUBED) 176 mg/dL 74-106 H [facility]~ [id number] 16:13:00* Test Item Value Reference Range Interpretation Comments GLUBED (test code = GLUBED) 148 mg/dL 74-106 H Performed by certified hose operator at [facility] [id number] 09:11:00* Test Item Value Reference Range Interpretation Comments GLUBED (test code = GLUBED) 104 mg/dL 74-106 N Performed by certified hose operator at [facility] LIPID PROFILE (CORONARY RISK)2019-06-02 06:19:00* Test Item Value Reference Range Interpretation Comments TRIGLYCERIDES (test code = TRIG) 387 mg/dL 20-150 H CHOLESTEROL (test code = CHOL) 233 mg/dL 0-200 H CHOLESTEROL/HDL RATIO (test code = CHOLHDL) 6.0 RATIO 0-4.9 H RISK ASSOCIATED WITH CHOL/HDL RATIOS: Risk Male Female1/2 AVERAGE 3.43 3.27AVERAGE 4.97 4.442X AVERAGE 9.55 7.053X AVERAGE 23.39 11.04 REFERENCE VALUE IS RELATED TO RISK LEVELS ASRECOMMENDED BY THE [facility]. HEART, LUNG, AND BLOOD INST. HDL CHOLESTEROL (test code = HDL) 36 mg/dL 40-60 L LIPOPROTEIN LDL (test code = LDL) 155 mg/dL 100-129 H RN PERSONNEL, CONTACT PHYSICIAN IMMEDIATELY IF THIS IS A STROKE, AMI OR CAROTID STENOSIS PATIENT WHEN THE LDL >100 (1ST OCCURENCE, THIS ADMISSION) Reference Interval: mg/dL mmol/L Optimal <100 <2.6Near/above optimal 100-129 2.6- 3.3Borderline High 130-159 3.4-4.1High 160-189 4.1-4.9Very High >=190 >=4.9========= This LDL result is a direct measurement.========= BASIC METABOLIC [id number] 06:17:00* Test Item Value Reference Range Interpretation Comments SODIUM (test code = NA) 136 mmol/L 136-145 N POTASSIUM (test code = K) 4.0 mmol/L 3.5-5.1 N CHLORIDE (test code = CL) 103.0 mmol/L 98-107 N CARBON DIOXIDE (test code = CO2) 28.0 mmol/L 21-32 N ANION GAP (test code = GAP) 9.0 10-20 L GLUCOSE (test code = GLU) 142 mg/dL 74-106 H BLOOD UREA NITROGEN (test code = BUN) 11 mg/dL 7-18 N GLOMERULAR FILTRATION RATE (test code = GFR) > 60 mL/min >=60 Estimated GFR by using Modified MDRD formula.Chronic kidney disease is defined as either kidney damageor GFR <60 mL/min/1.73 m2 for >3 months. CREATININE (test code = CREAT) 0.70 mg/dL 0.7-1.3 N BUN/CREATININE RATIO (test code = BUN/CREA) 15.7 10-20 N CALCIUM (test code = CA) 8.7 mg/dL 8.5-10.1 N BASIC METABOLIC [id number] 06:11:00* Test Item Value Reference Range Interpretation Comments SODIUM (test code = NA) 136 mmol/L 136-145 N POTASSIUM (test code = K) 4.0 mmol/L 3.5-5.1 N CHLORIDE (test code = CL) 103.0 mmol/L 98-107 N CARBON DIOXIDE (test code = CO2) mmol/L 21-32 ANION GAP (test code = GAP) 10-20 GLUCOSE (test code = GLU) mg/dL 74-106 BLOOD UREA NITROGEN (test code = BUN) mg/dL 7-18 GLOMERULAR FILTRATION RATE (test code = GFR) mL/min >=60 CREATININE (test code = CREAT) mg/dL 0.7-1.3 BUN/CREATININE RATIO (test code = BUN/CREA) 10-20 CALCIUM (test code = CA) mg/dL 8.5-10.1 CBC W/AUTO [id number] 05:37:00* Test Item Value Reference Range Interpretation Comments WHITE BLOOD CELL (test code = WBC) 7.2 K/mm3 4.5-12.5 N RED BLOOD CELL (test code = RBC) 3.70 mill/mm3 4.0-5.8 L HEMOGLOBIN (test code = HGB) 11.8 gram/dL 13.0-17.5 L HEMATOCRIT (test code = HCT) 33.5 % 42.0-52.0 L MEAN CELL VOLUME (test code = MCV) 90.5 fL 80-98 N MEAN CELL HGB (test code = MCH) 31.9 picogram 27.0-33.0 N MEAN CELL HGB CONCETRATION (test code = MCHC) 35.2 gram/dL 33.0-36. 0 N RED CELL DISTRIBUTION WIDTH (test code = RDW) 13.0 % 11.6-16. 2 N RED CELL DISTRIBUTION WIDTH SD (test code = RDW-SD) 42.3 fL 37 .0-51.0 N PLATELET COUNT (test code = PLT) 309 K/mm3 150-450 N MEAN PLATELET VOLUME (test code = MPV) 9.1 fL 6.7-11.0 N NEUTROPHIL % (test code = NT%) 50.6 % 39.0-69.0 N IMMATURE GRANULOCYTE % (test code = IG%) 0.4 % 0.0-5.0 N LYMPHOCYTE % (test code = LY%) 39.5 % 25.0-55.0 N MONOCYTE % (test code = MO%) 6.9 % 0.0-10.0 N EOSINOPHIL % (test code = EO%) 2.2 % 0.0-5.0 N BASOPHIL % (test code = BA%) 0.4 % 0.0-1.0 N NUCLEATED RBC % (test code = NRBC%) 0.0 % 0-0 N NEUTROPHIL # (test code = NT#) 3.64 K/mm3 1.8-7.7 N IMMATURE GRANULOCYTE # (test code = IG#) 0.03 x10 3/uL 0-0.03 N LYMPHOCYTE # (test code = LY#) 2.85 K/mm3 1.0-5.0 N MONOCYTE # (test code = MO#) 0.50 K/mm3 0-0.8 N EOSINOPHIL # (test code = EO#) 0.16 K/mm3 0.0-0.5 N BASOPHIL # (test code = BA#) 0.03 K/mm3 0.0-0.2 N NUCLEATED RBC # (test code = NRBC#) 0.00 K/mm3 0.0-0.1 N MANUAL DIFF REQUIRED (test code = MDIFF) NO - MRI BRAIN W WO [id number] 22:25:00 FAX: Christiano Sharma MD [phone] [place]: B St: [facility] FAX: Mandi Chatterjee DO Name: GUSTAVO CARPENTER [facility] : 1980 Age/S: 38/M [address] Unit #: [id number] Loc: [id number] [place], [place] [id number] Phys: Christiano Armijo MD Acct: [id number] Dis Date: Status: ADM IN PHONE #: [phone] Exam Date: 06/01/2019 174 FAX #: [phone] Reason: r/o right frontal cav ernous malformation EXAMS: CPT CODE: [id number] MRI BRAIN W WO CONT 41642 EXAM: MRI of the brain with and without contrast; INFORMATION: Headache; possible frontal lobe hemorrhage; possible vascular malformation; TECHNIQUE AND FINDINGS: Multiplanar, multiseq uence scans of the brain were obtained, including diffusion-weighted and c ontrast-enhanced T1-weighted sequences. The diffusion scans show a small f ocus of restricted diffusion corresponding with the area of increased dens ity on the recent CT scan. Hepatomegaly artifact is seen in this location on the gradient echo study. The contrast-enhanced studies show no en hancing vessels or enhancing lesions in this region. Symmetric basal ganglia calcifications are seen. There is no evidence of mass lesions; no midline shift. Unremarkable johnson/white matter differentiation. Vent ricles are symmetric and of normal diameter. Sulci and basilar cisterns ar e intact. IMPRESSION: 1. No evidence of a vascular malfo rmation. 2. Probable small parenchymal hemorrhage in the right frontal l obe adjacent to a previously demonstrated small calcification. Location code: [facility] at 2222 Reported and signed by: Kenan Carpenter M.D. CC: Christiano Armijo MD; Mandi Chatterjee DO Technologist: Freda Jasso(R)(MR) Trnscrd Date/Time/By: 06/01/2019 (2224) : By: [email or web address] [facility] Print D/T: S: 06/01/2019 (2227) PAGE 1 Signed Report URINALYSIS [id number] 15:54:00* Test Item Value Reference Range Interpretation Comments UA COLOR (test code = COLU) YELLOW YELLOW UA APPEARANCE (test code = APPU) CLEAR CLEAR UA GLUCOSE DIPSTICK (test code = DGLUU) NEGATIVE mg/dL NEGATIVE UA BILIRUBIN DIPSTICK (test code = BILU) NEGATIVE mg/dL NEGATIVE UA KETONE DIPSTICK (test code = KETU) TRACE mg/dL NEGATIVE A UA SPECIFIC GRAVITY (test code = SGU) 1.026 1.001-1.035 UA BLOOD DIPSTICK (test code = GREGOR) Negative mg/dL NEGATIVE UA PH DIPSTICK (test code = REE) 7.5 5.0-8.0 UA PROTEIN DIPSTICK (test code = PROU) 10 (Trace) mg/dL NEGATIVE A UA UROBILINIOGEN DIPSTICK (test code = URO) 2.0 (1+) mg/dL NEGATIVE A UA NITRITE DIPSTICK (test code = RUFINO) NEGATIVE NEGATIVE UA LEUKOCYTE ESTERASE W REFLEX (test code = LEUUR) NEGATIVE Rylee/uL NEGATIVE UA WBC (test code = WBCU) 0-5 per HPF 0-5 UA RBC (test code = RBCU) 0-2 #/HPF 0-5 UA EPITHELIAL CELLS (test code = EPIU) FEW per HPF FEW UA BACTERIA (test code = BACU) FEW #/HPF NONE A UA HYALINE CAST (test code = HYALU) 0-2 #/LPF 0-5 UA MUCUS (test code = MUCU) FEW #/LPF FEW Urine Source? Clean CatchDRUGS OF ABUSE SCREEN [id number] 15:54:00* Test Item Value Reference Range Interpretation Comments URN COCAINE (test code = COCAURN) NEGATIVE <300 ng/mL URN CANNABINOIDS (test code = CANNABURN) NEGATIVE <50 ng/mL URN AMPHETAMINE (test code = AMPHETURN) NEGATIVE <1000 ng/mL URN BARBITURATE (test code = BARBITURN) NEGATIVE <200 ng/mL URN BENZODIAZEPINE (test code = BENZOURN) NEGATIVE <200 ng/mL URN OPIATES (test code = OPIATURN) NEGATIVE <300 ng/mL URN PHENCYCLIDINE (PCP) (test code = PHENCURN) NEGATIVE <25 ng/ mL URN METHADONE (test code = METHAURN) NEGATIVE <300 ng/mL Urine Source? Clean Catch- XR L-SPINE 23 [id number] 15:34:00 FAX: Mandi Chatterjee DO [place]: B St: REG Name: GUSTAVO ROSADO [facility] : [birth year] Age/S: 38/M [address] Unit #: [id number] Loc: [place] [address] Phys: Mandi Chatterjee DO Acct: [id number] Dis Date: Status: REG ER PHONE #: [phone] Exam Date: 06/01/2019 8764 FAX #: [phone] Reason: BACK PAIN EXAMS: CPT CODE: [id number] XR L-SPINE 2/3 VIEWS 55323 EXAM: Lumbar spine, 3 views; INFORMATION: Back pain; FINDINGS: There is good ali gnment of the lumbar spine. Vertebral bodies and posterior elements are in tact; no evidence of fracture. Normal height of intervertebral discs. Para vertebral soft tissues are unremarkable. Surgical clips are seen in the gallbladder fossa. IMPRESSION: Negative L-spine seri es. Location code: [facility] Electronically Sig lara by Lakisha Carpenter on 06/01/2019 at 1534 Reported and signed by: Kenan Carpenter M.D. CC: Mandi Chatterjee DO Technologist: RT DAMIAN(Emily) Abena Date/Time/By: 06/01/2019 (1457) : By: RanjitGRW Orig Print D/T: S: (4360) PAGE 1 Signed Repo rt - XR SHOULDER 2 + V [id number] 15:33:00 FAX: Mandi Chatterjee DO [place]: B St: REG Name: GUSTAVO ROSADO [facility] : [birth year] Age/S: 38/M [address] Unit #: [id number] Loc: [place] [address] Phys: Mandi Chatterjee DO Acct: [id number] Dis Date: Status: REG ER PHONE #: [phone] Exam Date: 06/01/2019 1452 FAX #: [phone] Reason: shoulder pain EXAMS: CPT CODE: [id number] XR SHOULDER 2 + [place] [address] EXAM: Right shoulder, 3 views; INFORMATION: Shoulder pain; FINDINGS: Imaged bones are intact; no evidence of fracture or dislocation. There is a small inh omogeneous, moderately dense lesion originating from the inner aspect of t he cortex of the proximal portion of the diaphysis of the right humerus. End of the bones shows normal structure. Particular soft tissues unre markable. No radiopaque foreign bodies. IMPRESSION: 1. No evidence of acute osseous trauma. 2. 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 I recommend a follow-up study in 6 months. Location code: [facility] at 1533 Reported and signed by: Kenan Carpenter M.D. CC: Mandi Chatterjee DO Technologist: RT DAMIAN( R) Trnscrd Date/Time/By: 06/01/2019 (1533) : By : RanjitGRW Orig Print D/T: S: 06/01/2019 (6986) PAGE 1 Signed Report BASIC METABOLIC [id number] 15:27:00* Test Item Value Reference Range Interpretation Comments SODIUM (test code = NA) 135 mmol/L 136-145 L POTASSIUM (test code = K) 4.1 mmol/L 3.5-5.1 N CHLORIDE (test code = CL) 96.0 mmol/L 98-107 L CARBON DIOXIDE (test code = CO2) 29.0 mmol/L 21-32 N ANION GAP (test code = GAP) 14.1 10-20 N GLUCOSE (test code = GLU) 109 mg/dL 74-106 H BLOOD UREA NITROGEN (test code = BUN) 13 mg/dL 7-18 N GLOMERULAR FILTRATION RATE (test code = GFR) > 60 mL/min >=60 Estimated GFR by using Modified MDRD formula.Chronic kidney disease is defined as either kidney damageor GFR <60 mL/min/1.73 m2 for >3 months. CREATININE (test code = CREAT) 0.70 mg/dL 0.7-1.3 N BUN/CREATININE RATIO (test code = BUN/CREA) 18.6 10-20 N CALCIUM (test code = CA) 9.6 mg/dL 8.5-10.1 N [id number] 15:27:00* Test Item Value Reference Range Interpretation Comments TROPONIN-I (test code = TROPI) <0.015 ng/mL 0-0.045 N [id number] 15:27:00* Test Item Value Reference Range Interpretation Comments DIGOXIN (test code = DIG) 1.2 ng/mL 0.90-2.0 N NO TE: Spironolactone interference may cause a decrease inreported Digoxin results of 11-30 %. - XR CHEST 1 [id number] 15:21:00 FAX: Mandi Chatterjee DO [place]: St: REG Name: GUSTAVO ROSADO [facility] : [birth year] Age/S: 38/M [address] [facility] Unit #: [id number] Loc: [place] [address] Phys: Mandi Chatterjee DO Acct: [id number] Dis Date: Status: REG ER PHONE #: [phone] Exam Date: 06/01/2019 3903 FAX #: [phone] Reason: CHEST PAIN EXAMS: CPT CODE: [id number] XR CHEST 1 V 61553 EXAM: Chest X-ray, 1 view; CLINICAL HISTORY: Chest pain; FINDINGS: The lungs are clear, no infiltrates, no edema; no effusions; no pneumothorax; n ormal cardiomediastinal silhouette. IMPRESSION: Normal chest x-ray. Location code: [facility] Carlos rodrigues Signed by Lakisha Carpenter on 06/01/2019 a t 1521 Reported and signed by: Kenan Jones ch, M.D. CC: Mandi Chatterjee DO Technologist: FRANTZ SALGADO) Trnscrd Date/Time/By: 06/01/2019 (152) : By: RanjitGRW Orig Print D/T: S: 06/01/2019 (5063) PAGE 1 Signed Report URINALYSIS [id number] 15:12:00* Test Item Value Reference Range Interpretation Comments UA COLOR (test code = COLU) YELLOW YELLOW UA APPEARANCE (test code = APPU) CLEAR CLEAR UA GLUCOSE DIPSTICK (test code = DGLUU) NEGATIVE mg/dL NEGATIVE UA BILIRUBIN DIPSTICK (test code = BILU) NEGATIVE mg/dL NEGATIVE UA KETONE DIPSTICK (test code = KETU) TRACE mg/dL NEGATIVE A UA SPECIFIC GRAVITY (test code = SGU) 1.026 1.001-1.035 UA BLOOD DIPSTICK (test code = GREGOR) Negative mg/dL NEGATIVE UA PH DIPSTICK (test code = REE) 7.5 5.0-8.0 UA PROTEIN DIPSTICK (test code = PROU) 10 (Trace) mg/dL NEGATIVE A UA UROBILINIOGEN DIPSTICK (test code = URO) 2.0 (1+) mg/dL NEGATIVE A UA NITRITE DIPSTICK (test code = RUFINO) NEGATIVE NEGATIVE UA LEUKOCYTE ESTERASE W REFLEX (test code = LEUUR) NEGATIVE Rylee/uL NEGATIVE UA WBC (test code = WBCU) per HPF 0-5 UA RBC (test code = RBCU) per HPF 0-5 UA EPITHELIAL CELLS (test code = EPIU) per HPF Few UA BACTERIA (test code = BACU) per HPF NONE Urine Source? Clean CatchDRUGS OF ABUSE SCREEN [id number] 15:12:00* Test Item Value Reference Range Interpretation Comments URN COCAINE (test code = COCAURN) <300 ng/mL URN CANNABINOIDS (test code = CANNABURN) <50 ng/mL URN AMPHETAMINE (test code = AMPHETURN) <1000 ng/mL URN BARBITURATE (test code = BARBITURN) <200 ng/mL URN BENZODIAZEPINE (test code = BENZOURN) <200 ng/mL URN OPIATES (test code = OPIATURN) <300 ng/mL URN PHENCYCLIDINE (PCP) (test code = PHENCURN) <25 ng/ mL URN METHADONE (test code = METHAURN) <300 ng/mL Urine Source? Clean CatchURINALYSIS [id number] 15:12:00* Test Item Value Reference Range Interpretation Comments UA COLOR (test code = COLU) YELLOW YELLOW UA APPEARANCE (test code = APPU) CLEAR CLEAR UA GLUCOSE DIPSTICK (test code = DGLUU) NEGATIVE mg/dL NEGATIVE UA BILIRUBIN DIPSTICK (test code = BILU) NEGATIVE mg/dL NEGATIVE UA KETONE DIPSTICK (test code = KETU) TRACE mg/dL NEGATIVE A UA SPECIFIC GRAVITY (test code = SGU) 1.026 1.001-1.035 UA BLOOD DIPSTICK (test code = GREGOR) Negative mg/dL NEGATIVE UA PH DIPSTICK (test code = REE) 7.5 5.0-8.0 UA PROTEIN DIPSTICK (test code = PROU) 10 (Trace) mg/dL NEGATIVE A UA UROBILINIOGEN DIPSTICK (test code = URO) 2.0 (1+) mg/dL NEGATIVE A UA NITRITE DIPSTICK (test code = RUFINO) NEGATIVE NEGATIVE UA LEUKOCYTE ESTERASE W REFLEX (test code = LEUUR) NEGATIVE Rylee/uL NEGATIVE UA WBC (test code = WBCU) 0-5 per HPF 0-5 UA RBC (test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 CANNABINOIDS (test code = CANNABURN) NEGATIVE <50 ng/mL URN AMPHETAMINE (test code = AMPHETURN) NEGATIVE <1000 ng/mL URN BARBITURATE (test code = BARBITURN) NEGATIVE <200 ng/mL URN BENZODIAZEPINE (test code = BENZOURN) NEGATIVE <200 ng/mL URN OPIATES (test code = OPIATURN) NEGATIVE <300 ng/mL URN PHENCYCLIDINE (PCP) (test code = PHENCURN) NEGATIVE <25 ng/ mL URN METHADONE (test code = METHAURN) NEGATIVE <300 ng/mL Urine Source? Clean CatchBASIC METABOLIC [id number] 21:46:00* Test Item Value Reference Range Interpretation Comments SODIUM (test code = NA) 136 mmol/L 136-145 N POTASSIUM (test code = K) 3.8 mmol/L 3.5-5.1 N CHLORIDE (test code = CL) 98.0 mmol/L 98-107 N CARBON DIOXIDE (test code = CO2) 29.0 mmol/L 21-32 N ANION GAP (test code = GAP) 12.8 10-20 N GLUCOSE (test code = GLU) 125 mg/dL 74-106 H BLOOD UREA NITROGEN (test code = BUN) 18 mg/dL 7-18 N GLOMERULAR FILTRATION RATE (test code = GFR) > 60 mL/min >=60 Estimated GFR by using Modified MDRD formula.Chronic kidney disease is defined as either kidney damageor GFR <60 mL/min/1.73 m2 for >3 months. CREATININE (test code = CREAT) 0.60 mg/dL 0.7-1.3 L BUN/CREATININE RATIO (test code = BUN/CREA) 28.5 10-20 H CALCIUM (test code = CA) 9.0 mg/dL 8.5-10.1 N BASIC METABOLIC [id number] 21:40:00* Test Item Value Reference Range Interpretation Comments SODIUM (test code = NA) 136 mmol/L 136-145 N POTASSIUM (test code = K) 3.8 mmol/L 3.5-5.1 N CHLORIDE (test code = CL) 98.0 mmol/L 98-107 N CARBON DIOXIDE (test code = CO2) mmol/L 21-32 ANION GAP (test code = GAP) 10-20 GLUCOSE (test code = GLU) mg/dL 74-106 BLOOD UREA NITROGEN (test code = BUN) mg/dL 7-18 GLOMERULAR FILTRATION RATE (test code = GFR) mL/min >=60 CREATININE (test code = CREAT) mg/dL 0.7-1.3 BUN/CREATININE RATIO (test code = BUN/CREA) 10-20 CALCIUM (test code = CA) mg/dL 8.5-10.1 URINALYSIS [id number] 21:35:00* Test Item Value Reference Range Interpretation Comments UA COLOR (test code = COLU) Light-Yellow YELLOW UA APPEARANCE (test code = APPU) CLEAR CLEAR UA GLUCOSE DIPSTICK (test code = DGLUU) NEGATIVE mg/dL NEGATIVE UA BILIRUBIN DIPSTICK (test code = BILU) NEGATIVE mg/dL NEGATIVE UA KETONE DIPSTICK (test code = KETU) TRACE mg/dL NEGATIVE A UA SPECIFIC GRAVITY (test code = SGU) 1.024 1.001-1.035 UA BLOOD DIPSTICK (test code = GREGOR) Negative mg/dL NEGATIVE UA PH DIPSTICK (test code = REE) 6.5 5.0-8.0 UA PROTEIN DIPSTICK (test code = PROU) NEGATIVE mg/dL NEGATIVE UA UROBILINIOGEN DIPSTICK (test code = URO) Normal mg/dL NEGATIVE UA NITRITE DIPSTICK (test code = RUFINO) NEGATIVE NEGATIVE UA LEUKOCYTE ESTERASE W REFLEX (test code = LEUUR) NEGATIVE Rylee/uL NEGATIVE UA WBC (test code = WBCU) 0-5 per HPF 0-5 UA RBC (test code = RBCU) 0-2 #/HPF 0-5 UA EPITHELIAL CELLS (test code = EPIU) FEW per HPF FEW UA BACTERIA (test code = BACU) NONE SEEN #/HPF NONE UA MUCUS (test code = MUCU) FEW #/LPF FEW Urine Source? Clean CatchDRUGS OF ABUSE SCREEN [id number] 21:35:00* Test Item Value Reference Range Interpretation Comments URN COCAINE (test code = COCAURN) <300 ng/mL URN CANNABINOIDS (test code = CANNABURN) <50 ng/mL URN AMPHETAMINE (test code = AMPHETURN) <1000 ng/mL URN BARBITURATE (test code = BARBITURN) <200 ng/mL URN BENZODIAZEPINE (test code = BENZOURN) <200 ng/mL URN OPIATES (test code = OPIATURN) <300 ng/mL URN PHENCYCLIDINE (PCP) (test code = PHENCURN) <25 ng/ mL URN METHADONE (test code = METHAURN) <300 ng/mL Urine Source? Clean CatchCBC W/AUTO [id number] 21:31:00* Test Item Value Reference Range Interpretation Comments WHITE BLOOD CELL (test code = WBC) 9.4 K/mm3 4.5-12.5 N RED BLOOD CELL (test code = RBC) 3.47 mill/mm3 4.0-5.8 L HEMOGLOBIN (test code = HGB) 11.1 gram/dL 13.0-17.5 L HEMATOCRIT (test code = HCT) 32.8 % 42.0-52.0 L MEAN CELL VOLUME (test code = MCV) 94.5 fL 80-98 N MEAN CELL HGB (test code = MCH) 32.0 picogram 27.0-33.0 N MEAN CELL HGB CONCETRATION (test code = MCHC) 33.8 gram/dL 33.0-36. 0 N RED CELL DISTRIBUTION WIDTH (test code = RDW) 13.2 % 11.6-16. 2 N RED CELL DISTRIBUTION WIDTH SD (test code = RDW-SD) 45.7 fL 37 .0-51.0 N PLATELET COUNT (test code = PLT) 322 K/mm3 150-450 N MEAN PLATELET VOLUME (test code = MPV) 8.9 fL 6.7-11.0 N NEUTROPHIL % (test code = NT%) 51.8 % 39.0-69.0 N IMMATURE GRANULOCYTE % (test code = IG%) 0.5 % 0.0-5.0 N LYMPHOCYTE % (test code = LY%) 38.5 % 25.0-55.0 N MONOCYTE % (test code = MO%) 7.1 % 0.0-10.0 N EOSINOPHIL % (test code = EO%) 1.5 % 0.0-5.0 N BASOPHIL % (test code = BA%) 0.6 % 0.0-1.0 N NUCLEATED RBC % (test code = NRBC%) 0.0 % 0-0 N NEUTROPHIL # (test code = NT#) 4.87 K/mm3 1.8-7.7 N IMMATURE GRANULOCYTE # (test code = IG#) 0.05 x10 3/uL 0-0.03 H LYMPHOCYTE # (test code = LY#) 3.63 K/mm3 1.0-5.0 N MONOCYTE # (test code = MO#) 0.67 K/mm3 0-0.8 N EOSINOPHIL # (test code = EO#) 0.14 K/mm3 0.0-0.5 N BASOPHIL # (test code = BA#) 0.06 K/mm3 0.0-0.2 N NUCLEATED RBC # (test code = NRBC#) 0.00 K/mm3 0.0-0.1 N - CT HEAD/BRAIN W/O [id number] 21:14:00 Name: GUSTAVO CARPENTER [facility] : 1980 Age/S: 38 / M [address] [facility] Unit #: [id number] Loc: [place] [address] Phys: Ezequiel Coombs MD Acct: [id number] Dis Date: Status: REG ER PHONE #: [phone] Exam Date: 02/10/2019 2100 FAX #: [phone] Reason: seizure EXAMS: CPT CODE: [id number] CT HEAD/BRAIN W/O CONT 78823 HISTORY: seizure TECHNIQUE: Noncontrast 2.[address] of the head. Examination acquired within 24 hours of arrival. Automated exposure control for dose reduction; DLP: 851 mGy-cm. COMPARISON: 01/16/19 FINDINGS: No acute hemorrhage. No intracranial mass, mass effect, or midline shift. No CT evidence of acute infarct.. Trace periventricular chronic microvascular ischemic changes. No hydrocephalus. Bilateral basal ganglia calcifications. No extra-axial fluid collection. Atherosclerotic vascular calcification of the carotid siphons. Mild left maxillary sinus mucosal thickening. Mastoid air cells and middle ear cavities are clear. Orbital contents are unremarkable. Right frontal and right parietal haven holes. IMPRESSION: No acute intracr anial process. No significant interval change. LOCATION: at 2114 Reported and signed by: Patience Toscano D.O. CC: Ezequiel Coombs MD Technologist:Cruz Blake, RT(R)(CT) CTDI: DLP: Trnscb Date/Time: 02/10/2019 (2113) [email or web address] Orig Print D/T: S: 02/10/2019 (2116) PAGE 1 Signed Report [id number] 20:45:00* Test Item Value Reference Range Interpretation Comments GLUBED (test code = GLUBED) 140 mg/dL 74-106 H [facility]~ [id number] 16:48:00* Test Item Value Reference Range Interpretation Comments GLUBED (test code = GLUBED) 122 mg/dL 74-106 H Performed by certified hose operator at [facility] [id number] 12:17:00* Test Item Value Reference Range Interpretation Comments GLUBED (test code = GLUBED) 171 mg/dL 74-106 H Performed by certified hose operator at [facility] [id number] 06:37:00* Test Item Value Reference Range Interpretation Comments GLUBED (test code = GLUBED) 115 mg/dL 74-106 H [facility] [id number] 16:43:00* Test Item Value Reference Range Interpretation Comments GLUBED (test code = GLUBED) 119 mg/dL 74-106 H Performed by certified hose operator at [facility] [id number] 11:58:00* Test Item Value Reference Range Interpretation Comments GLUBED (test code = GLUBED) 216 mg/dL 74-106 H Performed by certified hose operator at [facility] [id number] 06:21:00* Test Item Value Reference Range Interpretation Comments GLUBED (test code = GLUBED) 102 mg/dL 74-106 N Performed by certified hose operator at [facility] [id number] 19:27:00* Test Item Value Reference Range Interpretation Comments GLUBED (test code = GLUBED) 187 mg/dL 74-106 H Performed by certified hose operator at [facility] [id number] 15:03:00* Test Item Value Reference Range Interpretation Comments GLUBED (test code = GLUBED) 207 mg/dL 74-106 H Performed by certified hose operator at [facility] [id number] 06:50:00* Test Item Value Reference Range Interpretation Comments GLUBED (test code = GLUBED) 101 mg/dL 74-106 N Performed by certified hose operator at [facility] [id number] 20:44:00* Test Item Value Reference Range Interpretation Comments GLUBED (test code = GLUBED) 112 mg/dL 74-106 H Performed by certified hose operator at [facility] [id number] 18:01:00* Test Item Value Reference Range Interpretation Comments GLUBED (test code = GLUBED) 121 mg/dL 74-106 H Performed by certified hose operator at [facility] [id number] 11:24:00* Test Item Value Reference Range Interpretation Comments GLUBED (test code = GLUBED) 94 mg/dL 74-106 N Performed by certified hose operator at [facility] [id number] 08:13:00* Test Item Value Reference Range Interpretation Comments GLUBED (test code = GLUBED) 84 mg/dL 74-106 N Performed by certified hose operator at [facility] [id number] 17:54:00* Test Item Value Reference Range Interpretation Comments GLUBED (test code = GLUBED) 151 mg/dL 74-106 H Performed by certified hose operator at [facility] [id number] 11:22:00* Test Item Value Reference Range Interpretation Comments GLUBED (test code = GLUBED) 93 mg/dL 74-106 N Performed by certified hose operator at [facility] URINALYSIS [id number] 13:50:00* Test Item Value Reference Range Interpretation Comments UA COLOR (test code = COLU) YELLOW YELLOW UA APPEARANCE (test code = APPU) CLEAR CLEAR UA GLUCOSE DIPSTICK (test code = DGLUU) NEGATIVE mg/dL NEGATIVE UA BILIRUBIN DIPSTICK (test code = BILU) NEGATIVE mg/dL NEGATIVE UA KETONE DIPSTICK (test code = KETU) NEGATIVE mg/dL NEGATIVE UA SPECIFIC GRAVITY (test code = SGU) 1.016 1.001-1.035 UA BLOOD DIPSTICK (test code = GREGOR) Negative mg/dL NEGATIVE UA PH DIPSTICK (test code = REE) 6.5 5.0-8.0 UA PROTEIN DIPSTICK (test code = PROU) NEGATIVE mg/dL NEGATIVE UA UROBILINIOGEN DIPSTICK (test code = URO) Normal mg/dL NEGATIVE UA NITRITE DIPSTICK (test code = RUFINO) NEGATIVE NEGATIVE UA LEUKOCYTE ESTERASE W REFLEX (test code = LEUUR) NEGATIVE Rylee/uL NEGATIVE UA WBC (test code = WBCU) 0-5 per HPF 0-5 UA RBC (test code = RBCU) 0-2 #/HPF 0-5 UA EPITHELIAL CELLS (test code = EPIU) None seen per HPF FEW UA BACTERIA (test code = BACU) NONE SEEN #/HPF NONE UA HYALINE CAST (test code = HYALU) 0-2 #/LPF 0-5 UA MUCUS (test code = MUCU) FEW #/LPF FEW Urine Source? Clean CatchDRUGS OF ABUSE SCREEN [id number] 13:50:00* Test Item Value Reference Range Interpretation Comments URN COCAINE (test code = COCAURN) NEGATIVE <300 ng/mL URN CANNABINOIDS (test code = CANNABURN) NEGATIVE <50 ng/mL URN AMPHETAMINE (test code = AMPHETURN) NEGATIVE <1000 ng/mL URN BARBITURATE (test code = BARBITURN) NEGATIVE <200 ng/mL URN BENZODIAZEPINE (test code = BENZOURN) NEGATIVE <200 ng/mL URN OPIATES (test code = OPIATURN) NEGATIVE <300 ng/mL URN PHENCYCLIDINE (PCP) (test code = PHENCURN) NEGATIVE <25 ng/ mL URN METHADONE (test code = METHAURN) NEGATIVE <300 ng/mL Urine Source? Clean CatchBASIC METABOLIC [id number] 11:44:00* Test Item Value Reference Range Interpretation Comments SODIUM (test code = NA) 135 mmol/L 136-145 L POTASSIUM (test code = K) 4.7 mmol/L 3.5-5.1 N CHLORIDE (test code = CL) 102.0 mmol/L 98-107 N CARBON DIOXIDE (test code = CO2) 23.0 mmol/L 21-32 N ANION GAP (test code = GAP) 14.7 10-20 N GLUCOSE (test code = GLU) 95 mg/dL 74-106 N BLOOD UREA NITROGEN (test code = BUN) 11 mg/dL 7-18 N GLOMERULAR FILTRATION RATE (test code = GFR) > 60 mL/min >=60 Estimated GFR by using Modified MDRD formula.Chronic kidney disease is defined as either kidney damageor GFR <60 mL/min/1.73 m2 for >3 months. CREATININE (test code = CREAT) 0.70 mg/dL 0.7-1.3 N BUN/CREATININE RATIO (test code = BUN/CREA) 15.1 10-20 N CALCIUM (test code = CA) 10.0 mg/dL 8.5-10.1 N HEPATIC FUNCTION [id number] 11:44:00* Test Item Value Reference Range Interpretation Comments TOTAL PROTEIN (test code = PROT) 8.7 gram/dL 6.4-8.2 H ALBUMIN (test code = ALB) 3.6 g/dL 3.4-5.0 N GLOBULIN (test code = GLOB) 5.1 gram/dL 2.7-4.2 H ALBUMIN/GLOBULIN RATIO (test code = A/G) 0.7 0.75-1.50 L BILIRUBIN TOTAL (test code = BILT) 0.40 mg/dL 0.0-1.0 N BILIRUBIN DIRECT (test code = BILD) < 0.05 mg/dL 0.0-0.20 N SGOT/AST (test code = AST) 49 IUnit/L 15-37 H SGPT/ALT (test code = ALT) 35 IUnit/L 12-78 N ALKALINE PHOSPHATASE TOTAL (test code = ALKP) 82 IUnit/L 45-117 N Note change in reference range due to change in reagent. [id number] 11:44:00* Test Item Value Reference Range Interpretation Comments ALCOHOL (test code = ALC) < 3 mg/dL 0.0-3.0 N -- INTERPRETIVE DATA NOTE: POSITIVE SCREENING RESULTS SHOULD BE CONSIDERED PRESUMPTIVE.WHEN COLLECTED FOR MEDICAL PURPOSES ONLY. SPECIMEN WILL NOTBE COLLECTED BY CHAIN OF CUSTODY.IF A CONFIRMATION OF POSITIVE RESULTS IS DESIRED, ACONFIRMATION TEST MUST BE REQUESTED BY THE PHYSICIAN AT ANADDITIONAL CHARGE TO THE PATIENT. BASIC METABOLIC [id number] 11:40:00* Test Item Value Reference Range Interpretation Comments SODIUM (test code = NA) 135 mmol/L 136-145 L POTASSIUM (test code = K) 4.7 mmol/L 3.5-5.1 N CHLORIDE (test code = CL) 102.0 mmol/L 98-107 N CARBON DIOXIDE (test code = CO2) mmol/L 21-32 ANION GAP (test code = GAP) 10-20 GLUCOSE (test code = GLU) mg/dL 74-106 BLOOD UREA NITROGEN (test code = BUN) mg/dL 7-18 GLOMERULAR FILTRATION RATE (test code = GFR) mL/min >=60 CREATININE (test code = CREAT) mg/dL 0.7-1.3 BUN/CREATININE RATIO (test code = BUN/CREA) 10-20 CALCIUM (test code = CA) mg/dL 8.5-10.1 HEPATIC FUNCTION [id number] 11:40:00* Test Item Value Reference Range Interpretation Comments TOTAL PROTEIN (test code = PROT) gram/dL 6.4-8.2 ALBUMIN (test code = ALB) g/dL 3.4-5.0 GLOBULIN (test code = GLOB) gram/dL 2.7-4.2 ALBUMIN/GLOBULIN RATIO (test code = A/G) 0.75-1.50 BILIRUBIN TOTAL (test code = BILT) mg/dL 0.0-1.0 BILIRUBIN DIRECT (test code = BILD) mg/dL 0.0-0.20 SGOT/AST (test code = AST) IUnit/L 15-37 SGPT/ALT (test code = ALT) IUnit/L 12-78 ALKALINE PHOSPHATASE TOTAL (test code = ALKP) IUnit/L 45-117 [id number] 11:40:00* Test Item Value Reference Range Interpretation Comments ALCOHOL (test code = ALC) mg/dL 0-3 CBC W/O [id number] 11:35:00* Test Item Value Reference Range Interpretation Comments WHITE BLOOD CELL (test code = WBC) 10.4 K/mm3 4.5-12.5 N RED BLOOD CELL (test code = RBC) 4.44 mill/mm3 4.0-5.8 N HEMOGLOBIN (test code = HGB) 14.3 gram/dL 13.0-17.5 N HEMATOCRIT (test code = HCT) 44.6 % 42.0-52.0 N MEAN CELL VOLUME (test code = MCV) 100.5 fL 80-98 H MEAN CELL HGB (test code = MCH) 32.2 picogram 27.0-33.0 N MEAN CELL HGB CONCETRATION (test code = MCHC) 32.1 gram/dL 33.0-36. 0 L RED CELL DISTRIBUTION WIDTH (test code = RDW) 13.6 % 11.6-16. 2 N PLATELET COUNT (test code = PLT) 137 K/mm3 150-450 L MEAN PLATELET VOLUME (test code = MPV) 10.7 fL 6.7-11.0 N URINALYSIS [id number] 11:29:00* Test Item Value Reference Range Interpretation Comments UA COLOR (test code = COLU) YELLOW YELLOW UA APPEARANCE (test code = APPU) CLEAR CLEAR UA GLUCOSE DIPSTICK (test code = DGLUU) NEGATIVE mg/dL NEGATIVE UA BILIRUBIN DIPSTICK (test code = BILU) NEGATIVE mg/dL NEGATIVE UA KETONE DIPSTICK (test code = KETU) NEGATIVE mg/dL NEGATIVE UA SPECIFIC GRAVITY (test code = SGU) 1.016 1.001-1.035 UA BLOOD DIPSTICK (test code = GREGOR) Negative mg/dL NEGATIVE UA PH DIPSTICK (test code = REE) 6.5 5.0-8.0 UA PROTEIN DIPSTICK (test code = PROU) NEGATIVE mg/dL NEGATIVE UA UROBILINIOGEN DIPSTICK (test code = URO) Normal mg/dL NEGATIVE UA NITRITE DIPSTICK (test code = RUFINO) NEGATIVE NEGATIVE UA LEUKOCYTE ESTERASE W REFLEX (test code = LEUUR) NEGATIVE Rylee/uL NEGATIVE UA WBC (test code = WBCU) 0-5 per HPF 0-5 UA RBC (test code = RBCU) 0-2 #/HPF 0-5 UA EPITHELIAL CELLS (test code = EPIU) None seen per HPF FEW UA BACTERIA (test code = BACU) NONE SEEN #/HPF NONE UA HYALINE CAST (test code = HYALU) 0-2 #/LPF 0-5 UA MUCUS (test code = MUCU) FEW #/LPF FEW Urine Source? Clean CatchDRUGS OF ABUSE SCREEN [id number] 11:29:00* Test Item Value Reference Range Interpretation Comments URN COCAINE (test code = COCAURN) <300 ng/mL URN CANNABINOIDS (test code = CANNABURN) <50 ng/mL URN AMPHETAMINE (test code = AMPHETURN) <1000 ng/mL URN BARBITURATE (test code = BARBITURN) <200 ng/mL URN BENZODIAZEPINE (test code = BENZOURN) <200 ng/mL URN OPIATES (test code = OPIATURN) <300 ng/mL URN PHENCYCLIDINE (PCP) (test code = PHENCURN) <25 ng/ mL URN METHADONE (test code = METHAURN) <300 ng/mL Urine Source? Clean CatchURINALYSIS [id number] 11:26:00* Test Item Value Reference Range Interpretation Comments UA COLOR (test code = COLU) YELLOW YELLOW UA APPEARANCE (test code = APPU) CLEAR CLEAR UA GLUCOSE DIPSTICK (test code = DGLUU) NEGATIVE mg/dL NEGATIVE UA BILIRUBIN DIPSTICK (test code = BILU) NEGATIVE mg/dL NEGATIVE UA KETONE DIPSTICK (test code = KETU) NEGATIVE mg/dL NEGATIVE UA SPECIFIC GRAVITY (test code = SGU) 1.016 1.001-1.035 UA BLOOD DIPSTICK (test code = GREGOR) Negative mg/dL NEGATIVE UA PH DIPSTICK (test code = REE) 6.5 5.0-8.0 UA PROTEIN DIPSTICK (test code = PROU) NEGATIVE mg/dL NEGATIVE UA UROBILINIOGEN DIPSTICK (test code = URO) Normal mg/dL NEGATIVE UA NITRITE DIPSTICK (test code = RUFINO) NEGATIVE NEGATIVE UA LEUKOCYTE ESTERASE W REFLEX (test code = LEUUR) NEGATIVE Rylee/uL NEGATIVE UA WBC (test code = WBCU) per HPF 0-5 UA RBC (test code = RBCU) per HPF 0-5 UA EPITHELIAL CELLS (test code = EPIU) per HPF Few UA BACTERIA (test code = BACU) per HPF NONE Urine Source? Clean CatchDRUGS OF ABUSE SCREEN [id number] 11:26:00* Test Item Value Reference Range Interpretation Comments URN COCAINE (test code = COCAURN) <300 ng/mL URN CANNABINOIDS (test code = CANNABURN) <50 ng/mL URN AMPHETAMINE (test code = AMPHETURN) <1000 ng/mL URN BARBITURATE (test code = BARBITURN) <200 ng/mL URN BENZODIAZEPINE (test code = BENZOURN) <200 ng/mL URN OPIATES (test code = OPIATURN) <300 ng/mL URN PHENCYCLIDINE (PCP) (test code = PHENCURN) <25 ng/ mL URN METHADONE (test code = METHAURN) <300 ng/mL Urine Source? Clean CatchVALPROIC ACID (DEPAKENE)2019-01-16 14:22:00* Test Item Value Reference Range Interpretation Comments VALPROIC ACID (DEPAKENE) (test code = VALP) 112.0 mcg/mL 50.0-100.0 H BASIC METABOLIC [id number] 14:20:00* Test Item Value Reference Range Interpretation Comments SODIUM (test code = NA) 135 mmol/L 136-145 L POTASSIUM (test code = K) 4.6 mmol/L 3.5-5.1 N CHLORIDE (test code = CL) 101.0 mmol/L 98-107 N CARBON DIOXIDE (test code = CO2) 27.0 mmol/L 21-32 N ANION GAP (test code = GAP) 11.6 10-20 N GLUCOSE (test code = GLU) 90 mg/dL 74-106 N BLOOD UREA NITROGEN (test code = BUN) 13 mg/dL 7-18 N GLOMERULAR FILTRATION RATE (test code = GFR) > 60 mL/min >=60 Estimated GFR by using Modified MDRD formula.Chronic kidney disease is defined as either kidney damageor GFR <60 mL/min/1.73 m2 for >3 months. CREATININE (test code = CREAT) 0.70 mg/dL 0.7-1.3 N BUN/CREATININE RATIO (test code = BUN/CREA) 18.0 10-20 N CALCIUM (test code = CA) 9.1 mg/dL 8.5-10.1 N BASIC METABOLIC [id number] 14:18:00* Test Item Value Reference Range Interpretation Comments SODIUM (test code = NA) 135 mmol/L 136-145 L POTASSIUM (test code = K) 4.6 mmol/L 3.5-5.1 N CHLORIDE (test code = CL) 101.0 mmol/L 98-107 N CARBON DIOXIDE (test code = CO2) mmol/L 21-32 ANION GAP (test code = GAP) 10-20 GLUCOSE (test code = GLU) mg/dL 74-106 BLOOD UREA NITROGEN (test code = BUN) mg/dL 7-18 GLOMERULAR FILTRATION RATE (test code = GFR) mL/min >=60 CREATININE (test code = CREAT) mg/dL 0.7-1.3 BUN/CREATININE RATIO (test code = BUN/CREA) 10-20 CALCIUM (test code = CA) 9.1 mg/dL 8.5-10.1 N CBC W/O [id number] 14:12:00* Test Item Value Reference Range Interpretation Comments WHITE BLOOD CELL (test code = WBC) 10.6 K/mm3 4.5-12.5 N RED BLOOD CELL (test code = RBC) 4.11 mill/mm3 4.0-5.8 N HEMOGLOBIN (test code = HGB) 13.1 gram/dL 13.0-17.5 N HEMATOCRIT (test code = HCT) 38.2 % 42.0-52.0 L MEAN CELL VOLUME (test code = MCV) 92.9 fL 80-98 N MEAN CELL HGB (test code = MCH) 31.9 picogram 27.0-33.0 N MEAN CELL HGB CONCETRATION (test code = MCHC) 34.3 gram/dL 33.0-36. 0 N RED CELL DISTRIBUTION WIDTH (test code = RDW) 13.2 % 11.6-16. 2 N PLATELET COUNT (test code = PLT) 374 K/mm3 150-450 N MEAN PLATELET VOLUME (test code = MPV) 9.0 fL 6.7-11.0 N CBC W/O [id number] 14:11:00* Test Item Value Reference Range Interpretation Comments WHITE BLOOD CELL (test code = WBC) K/mm3 4.5-12.5 RED BLOOD CELL (test code = RBC) mill/mm3 4.0-5.8 HEMOGLOBIN (test code = HGB) 13.1 gram/dL 13.0-17.5 N HEMATOCRIT (test code = HCT) % 42.0-52.0 MEAN CELL VOLUME (test code = MCV) fL 80-98 MEAN CELL HGB (test code = MCH) picogram 27.0-33.0 MEAN CELL HGB CONCETRATION (test code = MCHC) gram/dL 33.0-36. 0 RED CELL DISTRIBUTION WIDTH (test code = RDW) % 11.6-16. 2 PLATELET COUNT (test code = PLT) K/mm3 150-450 MEAN PLATELET VOLUME (test code = MPV) fL 6.7-11.0 - CT HEAD/BRAIN W/O [id number] 12:23:00 Name: GUSTAVO CARPENTER [facility] : 1980 Age/S: 38 / M [address] [address] Unit #: [id number] Loc: [place] [address] Phys: Hill Roberts MD Acct: [id number] Dis Date: Status: REG ER PHONE #: [phone] Exam Date: 01/16/2019 1204 FAX #: [phone] Reason: fall, loc, recent seizure EXAMS: CPT CODE: [id number] CT HEAD/BRAIN W/O CONT 46705 EXAM: CT of the head without contrast; INFORMATION: Recent seizure; headache after fall; TECHNIQUE AND FINDINGS: CT dose reduction protocol; 2.5 mm axial scans. There is no evidence of intra or extra-axial hemorrhage, mass lesions or midline shift. No change compared with a study from November 28, 2018; basal ganglia calcification; otherwise, unremarkable johnson/white matter differentiation. Ventricles are symmetric and of normal diameter; sulci and basilar cisterns are intact. Post craniotomy changes; no skull fracture. Mucosal swelling in the left maxillary sinus. The remainder of the sinuses and the nasal air cells are well aerated. IMPRESSION: 1. No evidence of intracranial hemorrhage or acute territorial infarction. 2. No significant change compared with a study from November 28, 2018; left maxillary sinusitis. at 1223 Reported and signed by: Kenan Carpenter M.D. CC: Hill Roberts MD Technologist:Viridiana Ratliff RT(R),CT CTDI: DLP: Trnscb Date/Time: 01/16/2019 (2313) Jose Alejandro Orig Print D/T: S: 01/16/2019 (8012) PAGE 1 Signed Report - XR L-SPINE 2/3 [id number] 12:17:00 FAX: Hill Roberts [place]: B St: REG Name: GUSTAVO ROSADO [facility] : [birth year] Age/S: 38/M [address] [facility] Unit #: [id number] Loc: [place] [address] Phys: Hill Roberts MD Acct: [id number] Dis Date: Status: REG ER PHONE #: [phone] Exam Date: 01/16/2019 1148 FAX #: [phone] Reason: pain EXAMS: CPT CODE: [id number] XR L-SPINE 2/3 VIEWS 12997 HISTORY: pain EXAM: AP, lateral, and swimmers views of the thoracic spine. AP and lateral and lumbosacral views of the lumbar spine Comparison: CT abdomen and pelvis March 26, 2016 FINDINGS: No acute fracture or subluxation. Vertebral body alignment is satisfactory. Vertebral body heights are preserved. Disc spaces are preserved. Small nishi tebral body osteophytes are present in the thoracic spine. No para spinal soft tissue contour abnormality. Visualized thorax is within normal limits. IMPRESSION: Negative radiographic examination of the th oracic and lumbar spine. at 1217 Reported and signed by: Anthony Samayoa MD CC: Hill Roberts MD Technologist: LU Olive[facility] Date/Time/By: 01/16/2019 (5653) : By: [email or web address] Orig Print D/T: S: 01/16/2019 (8168) PAGE 1 Astrid d Report - XR T-SPINE 3 [id number] 12:17:00 FAX: Hill Roberts [place]: B St: REG Name: GUSTAVO ROSADO [facility] : [birth year] Age/S: 38/M [place] Unit #: [id number] Loc: [place] [address] Phys: Hill Roberts MD Acct: [id number] Dis Date: Status: REG ER PHONE #: [phone] Exam Date: 01/16/2019 1148 FAX #: [phone] Reason: pain EXAMS: CPT CODE: [id number] XR T-SPINE 3 VIEWS 85498 HISTORY: pain EXAM: AP, lateral, and swimmers views of the thoracic spine. AP and lateral and lumbosacral views of the lumbar spine Comparison: CT abdomen and pelvis March 26, 2016 FINDINGS: No acute fracture or subluxation. Vertebral body alignment is satisfactory. Vertebral body heights are preserved. Disc spaces are preserved. Small nishi tebral body osteophytes are present in the thoracic spine. No para spinal soft tissue contour abnormality. Visualized thorax is within normal limits. IMPRESSION: Negative radiographic examination of the th oracic and lumbar spine. at 1217 Reported and signed by: Anthony Samayoa MD CC: Hill Roberts MD Technologist: LU Olive[facility] Date/Time/By: 01/16/2019 (6258) : By: [email or web address] [facility] Print D/T: S: 01/16/2019 (3817) PAGE 1 Astrid d Report [id number] 17:03:00* Test Item Value Reference Range Interpretation Comments GLUBED (test code = GLUBED) 202 mg/dL 74-106 H Performed by certified hose operator at [facility] VALPROIC ACID (DEPAKENE)2018-11-30 13:30:00* Test Item Value Reference Range Interpretation Comments VALPROIC ACID (DEPAKENE) (test code = VALP) 43.0 mcg/mL 50.0-100.0 L PT WAS A HARD STICK NOTIFIED NURSE [id number] V.LAB.AL [id number] 12:30:00* Test Item Value Reference Range Interpretation Comments UA COLOR (test code = COLU) YELLOW YELLOW UA APPEARANCE (test code = APPU) CLEAR CLEAR UA GLUCOSE DIPSTICK (test code = DGLUU) 70 (1+) mg/dL NEGATIVE A UA BILIRUBIN DIPSTICK (test code = BILU) NEGATIVE mg/dL NEGATIVE UA KETONE DIPSTICK (test code = KETU) NEGATIVE mg/dL NEGATIVE UA SPECIFIC GRAVITY (test code = SGU) 1.016 1.001-1.035 UA BLOOD DIPSTICK (test code = GREGOR) Negative mg/dL NEGATIVE UA PH DIPSTICK (test code = REE) 5.5 5.0-8.0 UA PROTEIN DIPSTICK (test code = PROU) NEGATIVE mg/dL NEGATIVE UA UROBILINIOGEN DIPSTICK (test code = URO) Normal mg/dL NEGATIVE UA NITRITE DIPSTICK (test code = RUFINO) NEGATIVE NEGATIVE UA LEUKOCYTE ESTERASE W REFLEX (test code = LEUUR) 25 Rylee/uL (Trace) Rylee/uL NEGATIVE A UA WBC (test code = WBCU) 0-5 per HPF 0-5 UA RBC (test code = RBCU) 0-2 #/HPF 0-5 UA EPITHELIAL CELLS (test code = EPIU) Few (2-5/hpf) per HPF Few UA BACTERIA (test code = BACU) FEW #/HPF NONE A UA MUCUS (test code = MUCU) FEW #/LPF FEW Urine Source? Clean CatchURINALYSIS [id number] 12:25:00* Test Item Value Reference Range Interpretation Comments UA COLOR (test code = COLU) YELLOW YELLOW UA APPEARANCE (test code = APPU) CLEAR CLEAR UA GLUCOSE DIPSTICK (test code = DGLUU) 70 (1+) mg/dL NEGATIVE A UA BILIRUBIN DIPSTICK (test code = BILU) NEGATIVE mg/dL NEGATIVE UA KETONE DIPSTICK (test code = KETU) NEGATIVE mg/dL NEGATIVE UA SPECIFIC GRAVITY (test code = SGU) 1.016 1.001-1.035 UA BLOOD DIPSTICK (test code = GREGOR) Negative mg/dL NEGATIVE UA PH DIPSTICK (test code = REE) 5.5 5.0-8.0 UA PROTEIN DIPSTICK (test code = PROU) NEGATIVE mg/dL NEGATIVE UA UROBILINIOGEN DIPSTICK (test code = URO) Normal mg/dL NEGATIVE UA NITRITE DIPSTICK (test code = RUFINO) NEGATIVE NEGATIVE UA LEUKOCYTE ESTERASE W REFLEX (test code = LEUUR) 25 Rylee/uL (Trace) Rylee/uL NEGATIVE A UA WBC (test code = WBCU) 0-5 per HPF 0-5 UA RBC (test code = RBCU) 0-2 #/HPF 0-5 UA EPITHELIAL CELLS (test code = EPIU) per HPF Few UA BACTERIA (test code = BACU) FEW #/HPF NONE A UA MUCUS (test code = MUCU) FEW #/LPF FEW Urine Source? Clean [id number] 11:43:00* Test Item Value Reference Range Interpretation Comments GLUBED (test code = GLUBED) 142 mg/dL 74-106 H Performed by certified hose operator at [facility] [id number] 08:43:00* Test Item Value Reference Range Interpretation Comments GLUBED (test code = GLUBED) 100 mg/dL 74-106 N Performed by certified hose operator at [facility] [id number] 08:43:00* Test Item Value Reference Range Interpretation Comments GLUBED (test code = GLUBED) 99 mg/dL 74-106 N Performed by certified hose operator at [facility] [id number] 08:42:00* Test Item Value Reference Range Interpretation Comments GLUBED (test code = GLUBED) 130 mg/dL 74-106 H Performed by certified hose operator at [facility] [id number] 06:41:00* Test Item Value Reference Range Interpretation Comments GLUBED (test code = GLUBED) 84 mg/dL 74-106 N Performed by certified hose operator at [facility] [id number] 06:41:00* Test Item Value Reference Range Interpretation Comments GLUBED (test code = GLUBED) 179 mg/dL 74-106 H [facility] RehabilitationNotified Nurse~ [id number] 06:41:00* Test Item Value Reference Range Interpretation Comments GLUBED (test code = GLUBED) 127 mg/dL 74-106 H Performed by certified hose operator at [facility] [id number] 06:41:00* Test Item Value Reference Range Interpretation Comments GLUBED (test code = GLUBED) 174 mg/dL 74-106 H Performed by certified hose operator at [facility] BASIC METABOLIC [id number] 13:27:00* Test Item Value Reference Range Interpretation Comments SODIUM (test code = NA) 136 mmol/L 136-145 N POTASSIUM (test code = K) 4.2 mmol/L 3.5-5.1 N CHLORIDE (test code = CL) 104.0 mmol/L 98-107 N CARBON DIOXIDE (test code = CO2) 25.0 mmol/L 21-32 N ANION GAP (test code = GAP) 11.2 10-20 N GLUCOSE (test code = GLU) 181 mg/dL 74-106 H BLOOD UREA NITROGEN (test code = BUN) 13 mg/dL 7-18 N GLOMERULAR FILTRATION RATE (test code = GFR) > 60 mL/min >=60 Estimated GFR by using Modified MDRD formula.Chronic kidney disease is defined as either kidney damageor GFR <60 mL/min/1.73 m2 for >3 months. CREATININE (test code = CREAT) 0.80 mg/dL 0.7-1.3 N BUN/CREATININE RATIO (test code = BUN/CREA) 16.3 10-20 N CALCIUM (test code = CA) 8.6 mg/dL 8.5-10.1 N [id number] 13:27:00* Test Item Value Reference Range Interpretation Comments ALCOHOL (test code = ALC) 4 mg/dL 0.0-3.0 H -- INTERPRETIVE DATA NOTE: POSITIVE SCREENING RESULTS SHOULD BE CONSIDERED PRESUMPTIVE.WHEN COLLECTED FOR MEDICAL PURPOSES ONLY. SPECIMEN WILL NOTBE COLLECTED BY CHAIN OF CUSTODY.IF A CONFIRMATION OF POSITIVE RESULTS IS DESIRED, ACONFIRMATION TEST MUST BE REQUESTED BY THE PHYSICIAN AT ANADDITIONAL CHARGE TO THE PATIENT. DRUGS OF ABUSE SCREEN [id number] 13:15:00* Test Item Value Reference Range Interpretation Comments UA PH DIPSTICK (test code = REE) 6.0 5.0-8.0 URN COCAINE (test code = COCAURN) NEGATIVE <300 ng/mL URN CANNABINOIDS (test code = CANNABURN) NEGATIVE <50 ng/mL URN AMPHETAMINE (test code = AMPHETURN) NEGATIVE <1000 ng/mL URN BARBITURATE (test code = BARBITURN) NEGATIVE <200 ng/mL URN BENZODIAZEPINE (test code = BENZOURN) NEGATIVE <200 ng/mL URN OPIATES (test code = OPIATURN) NEGATIVE <300 ng/mL URN PHENCYCLIDINE (PCP) (test code = PHENCURN) NEGATIVE <25 ng/ mL URN METHADONE (test code = METHAURN) NEGATIVE <300 ng/mL CBC W/AUTO [id number] 13:00:00* Test Item Value Reference Range Interpretation Comments WHITE BLOOD CELL (test code = WBC) 7.6 K/mm3 4.5-12.5 N RED BLOOD CELL (test code = RBC) 3.82 mill/mm3 4.0-5.8 L HEMOGLOBIN (test code = HGB) 12.2 gram/dL 13.0-17.5 L RESULT VERIFIED BY REPEAT ANALYSIS HEMATOCRIT (test code = HCT) 36.4 % 42.0-52.0 L MEAN CELL VOLUME (test code = MCV) 95.3 fL 80-98 N MEAN CELL HGB (test code = MCH) 31.9 picogram 27.0-33.0 N MEAN CELL HGB CONCETRATION (test code = MCHC) 33.5 gram/dL 33.0-36. 0 N RED CELL DISTRIBUTION WIDTH (test code = RDW) 12.8 % 11.6-16. 2 N RED CELL DISTRIBUTION WIDTH SD (test code = RDW-SD) 44.0 fL 37 .0-51.0 N PLATELET COUNT (test code = PLT) 310 K/mm3 150-450 MEAN PLATELET VOLUME (test code = MPV) 9.4 fL 6.7-11.0 N NEUTROPHIL % (test code = NT%) 54.2 % 39.0-69.0 N IMMATURE GRANULOCYTE % (test code = IG%) 2.1 % 0.0-5.0 N LYMPHOCYTE % (test code = LY%) 34.6 % 25.0-55.0 N MONOCYTE % (test code = MO%) 6.8 % 0.0-10.0 N EOSINOPHIL % (test code = EO%) 1.8 % 0.0-5.0 N BASOPHIL % (test code = BA%) 0.5 % 0.0-1.0 N NUCLEATED RBC % (test code = NRBC%) 0.0 % 0-0 N NEUTROPHIL # (test code = NT#) 4.11 K/mm3 1.8-7.7 N IMMATURE GRANULOCYTE # (test code = IG#) 0.16 x10 3/uL 0-0.03 H LYMPHOCYTE # (test code = LY#) 2.63 K/mm3 1.0-5.0 N MONOCYTE # (test code = MO#) 0.52 K/mm3 0-0.8 N EOSINOPHIL # (test code = EO#) 0.14 K/mm3 0.0-0.5 N BASOPHIL # (test code = BA#) 0.04 K/mm3 0.0-0.2 N NUCLEATED RBC # (test code = NRBC#) 0.00 K/mm3 0.0-0.1 N [id number] 12:57:00* Test Item Value Reference Range Interpretation Comments GLYCOSYLATED HEMOGLOBIN (HA1C) (test code = GLYHGB) 7.0 % HbA1 4. 8-6.0 H ESTIMATED AVERAGE GLUCOSE (test code = EAG) 154 MG/DL DRUGS OF ABUSE SCREEN [id number] 07:36:00* Test Item Value Reference Range Interpretation Comments UA PH DIPSTICK (test code = REE) 5.0-8.0 URN COCAINE (test code = COCAURN) NEGATIVE <300 ng/mL URN CANNABINOIDS (test code = CANNABURN) NEGATIVE <50 ng/mL URN AMPHETAMINE (test code = AMPHETURN) NEGATIVE <1000 ng/mL URN BARBITURATE (test code = BARBITURN) NEGATIVE <200 ng/mL URN BENZODIAZEPINE (test code = BENZOURN) NEGATIVE <200 ng/mL URN OPIATES (test code = OPIATURN) NEGATIVE <300 ng/mL URN PHENCYCLIDINE (PCP) (test code = PHENCURN) NEGATIVE <25 ng/ mL URN METHADONE (test code = METHAURN) NEGATIVE <300 ng/mL [id number] 02:55:00* Test Item Value Reference Range Interpretation Comments DIGOXIN (test code = DIG) 1.0 ng/mL 0.90-2.0 N NO TE: Spironolactone interference may cause a decrease inreported Digoxin results of 11-30 %. BASIC METABOLIC [id number] 01:00:00* Test Item Value Reference Range Interpretation Comments SODIUM (test code = NA) 139 mmol/L 136-145 N POTASSIUM (test code = K) 4.4 mmol/L 3.5-5.1 N CHLORIDE (test code = CL) 101.0 mmol/L 98-107 N CARBON DIOXIDE (test code = CO2) 31.0 mmol/L 21-32 N ANION GAP (test code = GAP) 11.4 10-20 N GLUCOSE (test code = GLU) 54 mg/dL 74-106 L BLOOD UREA NITROGEN (test code = BUN) 19 mg/dL 7-18 H GLOMERULAR FILTRATION RATE (test code = GFR) > 60 mL/min >=60 Estimated GFR by using Modified MDRD formula.Chronic kidney disease is defined as either kidney damageor GFR <60 mL/min/1.73 m2 for >3 months. CREATININE (test code = CREAT) 1.00 mg/dL 0.7-1.3 N BUN/CREATININE RATIO (test code = BUN/CREA) 19.5 10-20 N CALCIUM (test code = CA) 10.6 mg/dL 8.5-10.1 H VALPROIC ACID (DEPAKENE)2018-11-29 01:00:00* Test Item Value Reference Range Interpretation Comments VALPROIC ACID (DEPAKENE) (test code = VALP) 117.0 mcg/mL 50.0-100.0 H BASIC METABOLIC [id number] 00:40:00* Test Item Value Reference Range Interpretation Comments SODIUM (test code = NA) 139 mmol/L 136-145 N POTASSIUM (test code = K) 4.4 mmol/L 3.5-5.1 N CHLORIDE (test code = CL) 101.0 mmol/L 98-107 N CARBON DIOXIDE (test code = CO2) mmol/L 21-32 ANION GAP (test code = GAP) 10-20 GLUCOSE (test code = GLU) mg/dL 74-106 BLOOD UREA NITROGEN (test code = BUN) mg/dL 7-18 GLOMERULAR FILTRATION RATE (test code = GFR) mL/min >=60 CREATININE (test code = CREAT) mg/dL 0.7-1.3 BUN/CREATININE RATIO (test code = BUN/CREA) 10-20 CALCIUM (test code = CA) mg/dL 8.5-10.1 VALPROIC ACID (DEPAKENE)2018-11-29 00:40:00* Test Item Value Reference Range Interpretation Comments VALPROIC ACID (DEPAKENE) (test code = VALP) mcg/mL 50.0-100.0 CBC W/O [id number] 00:29:00* Test Item Value Reference Range Interpretation Comments WHITE BLOOD CELL (test code = WBC) 10.3 K/mm3 4.5-12.5 N RED BLOOD CELL (test code = RBC) 4.88 mill/mm3 4.0-5.8 N HEMOGLOBIN (test code = HGB) 15.7 gram/dL 13.0-17.5 N HEMATOCRIT (test code = HCT) 45.8 % 42.0-52.0 N MEAN CELL VOLUME (test code = MCV) 93.9 fL 80-98 N MEAN CELL HGB (test code = MCH) 32.2 picogram 27.0-33.0 N MEAN CELL HGB CONCETRATION (test code = MCHC) 34.3 gram/dL 33.0-36. 0 N RED CELL DISTRIBUTION WIDTH (test code = RDW) 12.8 % 11.6-16. 2 N PLATELET COUNT (test code = PLT) 409 K/mm3 150-450 N MEAN PLATELET VOLUME (test code = MPV) 9.6 fL 6.7-11.0 N CBC W/O [id number] 00:28:00* Test Item Value Reference Range Interpretation Comments WHITE BLOOD CELL (test code = WBC) K/mm3 4.5-12.5 RED BLOOD CELL (test code = RBC) mill/mm3 4.0-5.8 HEMOGLOBIN (test code = HGB) 15.7 gram/dL 13.0-17.5 N HEMATOCRIT (test code = HCT) 45.8 % 42.0-52.0 N MEAN CELL VOLUME (test code = MCV) fL 80-98 MEAN CELL HGB (test code = MCH) picogram 27.0-33.0 MEAN CELL HGB CONCETRATION (test code = MCHC) gram/dL 33.0-36. 0 RED CELL DISTRIBUTION WIDTH (test code = RDW) % 11.6-16. 2 PLATELET COUNT (test code = PLT) K/mm3 150-450 MEAN PLATELET VOLUME (test code = MPV) fL 6.7-11.0 [id number] 00:07:00* Test Item Value Reference Range Interpretation Comments GLUBED (test code = GLUBED) 44 mg/dL 74-106 LL [facility] Notified~ - XR CHEST 1 [id number] 23:22:00 FAX: Mandi Chatterjee DO [place]: B St: REG Name: GUSTAVO ROSADO [facility] : [birth year] Age/S: 38/M [address] [facility] Unit #: [id number] Loc: [place] [address] Phys: Mandi Chatterjee DO Acct: [id number] Dis Date: Status: REG ER PHONE #: [phone] Exam Date: 11/28/2018 2307 FAX #: [phone] Reason: Seizure EXAMS: CPT CODE: [id number] XR CHEST 1 V 32212 LOCATION: Q15 HISTORY: 38-year-old male who presents with a seizure. COMMENT: A frontal chest radiograph was obtained at 10:59 p.m. An older exam ination of January 26, 2018 is available for comparison. The lungs are clear and well-aerated. The cardiac silhouette, elias, and mediastinum are within normal limits. The skeleton and soft tissues are unremarkable. IMPRESSION: Unremarkable frontal chest examin ation. at 6143 Reported and signed by: Jerri Coombs M.D. CC: Chivo Chatterjee DO Technologist: Sobeida Londono Trnscrd Date/Time/By: 11/28/2018 (0606) : By: [email or web address] Orig Print D/T: S: 11/28/2018 (3086) PAGE 1 Signed Report - CT C-SPINE W/O [id number] 23:07:00 [facility] 1980 Age/S: 38 / M [address] Unit #: [id number] Loc: [place] [address] Phys: Mandi Chatterjee DO Acct: [id number] Dis Date: Status: REG ER PHONE #: [phone] Exam Date: 11/28/20182245 FAX #: [phone] Reason: NECK PAIN EXAMS: CPT CODE: [id number] CT C-SPINE W/O CONTRAST 28611 AFTER HOURS SERVICE ON: 11/28/2018 11:[address] Scan of the Brain Without Contrast Location Code M12 History: Seizure Technique: Scans were performed on a helical scanner pre IV contrast only. The study is limited secondary to lack of intravenous contrast, particularly for evaluation of masses. One or more of the following dose reduction techniques were used: Automated exposure control, adjustment of the mA and/or kV according to patient size, and/or utilization of iterative reconstruction technique. Findings: There is no hydrocephalus. Basal cisterns are patent. Dense calcification is noted in the basal ganglia bilaterally. There is no intracranial hyperdense hemorrhage. There is no midline shift or mass effect. No effacement of the johnson-white matter junction to indicate acute infarction. There are right-sided haven holes. There is no skull fracture. Impression: No skull fracture or intracranial hemorrhage. AFTER HOURS SERVICE ON: 11/28/2018 11:[address] of the Cervical Spine Without Contrast Location Code M12 History: Seizure PAGE 1 Signed Report (CONTINUED) Name: GUSTAVO CARPENTER [facility] : 1980 Age/S: 38 / M [address] Unit #: [id number] Loc: [place] [address] Phys: Mandi Chatterjee DO Acct: [id number] Dis Date: Status: REG ER PHONE #: [phone] Exam Date: 11/28/20182245 FAX #: [phone] Reason: NECK PAIN EXAMS: CPT CODE: [id number] CT C-SPINE W/O CONTRAST 59908 <Continued> Technique: Scans were obtained on a helical scanner pre IV contrast only. One or more of the following dose reduction techniques were used: Automated exposure control, adjustment of the mA and/or kV according to patient size, and/or utilization of iterative reconstruction technique. Findings: Craniocervical junction is intact. Atlantoaxial joint is unremarkable. C1 ring is normal. Dens is intact. Transverse processes, pedicles and lamina are intact. No compression fracture or pathologic lesions. Impression: No cervical spine fracture. at 2307 Reported and signed by: Tima Guevara M.D. CC: Mandi Chatterjee DO Technologist:CLAUDETTE URBINA CTDI: DLP: Trnscb Date/Time: 11/28/2018 (2306) [email or web address] Orig Print D/T: S: 11/28/2018 (3624) PAGE 2 Signed Report - CT HEAD/BRAIN W/O [id number] 23:07:00 Name: GUSTAVO CARPENTER [facility] : 1980 Age/S: 38 / M [address] [facility] Unit #: [id number] Loc: VilmaANDREI [address] Phys: Mandi Chatterjee DO Acct: [id number] Dis Date: Status: REG ER PHONE #: [phone] Exam Date: 11/28/2018 2246 FAX #: [phone] Reason: Seizure EXAMS: CPT CODE: [id number] CT HEAD/BRAIN W/O CONT 79782 AFTER HOURS SERVICE ON: 11/28/2018 11:[address] Scan of the Brain Without Contrast Location Code M12 History: Seizure Technique: Scans were performed on a helical scanner pre IV contrast only. The study is limited secondary to lack of intravenous contrast, particularly for evaluation of masses. One or more of the following dose reduction techniques were used: Automated exposure control, adjustment of the mA and/or kV according to patient size, and/or utilization of iterative reconstruction technique. Findings: There is no hydrocephalus. Basal cisterns are patent. Dense calcification is noted in the basal ganglia bilaterally. There is no intracranial hyperdense hemorrhage. There is no midline shift or mass effect. No effacement of the johnson-white matter junction to indicate acute infarction. There are right-sided haven holes. There is no skull fracture. Impression: No skull fracture or intracranial hemorrhage. AFTER HOURS SERVICE ON: 11/28/2018 11:[address] of the Cervical Spine Without Contrast Location Code M12 History: Seizure PAGE 1 Signed Report (CONTINUED) Name: GUSTAVO CARPENTER [facility] : 1980 Age/S: 38 / M [address] [facility] Unit #: [id number] Loc: ANDREI [place] [address] Phys: Mandi Chatterjee DO Acct: [id number] Dis Date: Status: REG ER PHONE #: [phone] Exam Date: 11/28/20182245 FAX #: [phone] Reason: Seizure EXAMS: CPT CODE: [id number] CT HEAD/BRAIN W/O CONT 80571 <Continued> Technique: Scans were obtained on a helical scanner pre IV contrast only. One or more of the following dose reduction techniques were used: Automated exposure control, adjustment of the mA and/or kV according to patient size, and/or utilization of iterative reconstruction technique. Findings: Craniocervical junction is intact. Atlantoaxial joint is unremarkable. C1 ring is normal. Dens is intact. Transverse processes, pedicles and lamina are intact. No compression fracture or pathologic lesions. Impression: No cervical spine fracture. at 2307 Reported and signed by: Tima Guevara M.D. CC: Mandi Chatterjee DO Technologist:CLAUDETTE URBINA CTDI: DLP: Trnscb Date/Time: 11/28/2018 (230) [email or web address] Orig Print D/T: S: 11/28/2018 (2310) PAGE 2 Signed Report BASIC METABOLIC [id number] 14:30:00* Test Item Value Reference Range Interpretation Comments SODIUM (test code = NA) 134 mmol/L 136-145 L POTASSIUM (test code = K) 4.1 mmol/L 3.5-5.1 N CHLORIDE (test code = CL) 97.0 mmol/L 98-107 L CARBON DIOXIDE (test code = CO2) 26.0 mmol/L 21-32 N ANION GAP (test code = GAP) 15.1 10-20 N GLUCOSE (test code = GLU) 223 mg/dL 74-106 H BLOOD UREA NITROGEN (test code = BUN) 18 mg/dL 7-18 N GLOMERULAR FILTRATION RATE (test code = GFR) > 60 mL/min >=60 Estimated GFR by using Modified MDRD formula.Chronic kidney disease is defined as either kidney damageor GFR <60 mL/min/1.73 m2 for >3 months. CREATININE (test code = CREAT) 0.90 mg/dL 0.7-1.3 N BUN/CREATININE RATIO (test code = BUN/CREA) 19.5 10-20 N CALCIUM (test code = CA) 9.8 mg/dL 8.5-10.1 N HEPATIC FUNCTION [id number] 14:30:00* Test Item Value Reference Range Interpretation Comments TOTAL PROTEIN (test code = PROT) 8.6 gram/dL 6.4-8.2 H ALBUMIN (test code = ALB) 4.4 g/dL 3.4-5.0 N GLOBULIN (test code = GLOB) 4.2 gram/dL 2.7-4.2 N ALBUMIN/GLOBULIN RATIO (test code = A/G) 1.0 0.75-1.50 N BILIRUBIN TOTAL (test code = BILT) 0.30 mg/dL 0.0-1.0 N BILIRUBIN DIRECT (test code = BILD) 0.09 mg/dL 0.0-0.20 N SGOT/AST (test code = AST) 67 IUnit/L 15-37 H SGPT/ALT (test code = ALT) 49 IUnit/L 12-78 N ALKALINE PHOSPHATASE TOTAL (test code = ALKP) 58 IUnit/L 45-117 N Note change in reference range due to change in reagent. [id number] 14:30:00* Test Item Value Reference Range Interpretation Comments ACETAMINOPHEN (test code = ACET) < 10 mcg/mL 10-30 L A RANGE OF 10-30 mcg/mL IS A THERAPEUTIC RANGE. TOXIC CONCENTRATIONS: >150 mcg/mL AT 4 HOURS AFTER INGESTION >= 50 mcg/mL AT 12 HOURS AFTER INGESTION [id number] 14:30:00* Test Item Value Reference Range Interpretation Comments SALICYLATE (test code = RADHA) < 1.7 mg/dL 2.8-20.0 L [id number] 14:30:00* Test Item Value Reference Range Interpretation Comments ALCOHOL (test code = ALC) < 3 mg/dL 0.0-3.0 N -- INTERPRETIVE DATA NOTE: POSITIVE SCREENING RESULTS SHOULD BE CONSIDERED PRESUMPTIVE.WHEN COLLECTED FOR MEDICAL PURPOSES ONLY. SPECIMEN WILL NOTBE COLLECTED BY CHAIN OF CUSTODY.IF A CONFIRMATION OF POSITIVE RESULTS IS DESIRED, ACONFIRMATION TEST MUST BE REQUESTED BY THE PHYSICIAN AT ANADDITIONAL CHARGE TO THE PATIENT. CBC W/O [id number] 14:08:00* Test Item Value Reference Range Interpretation Comments WHITE BLOOD CELL (test code = WBC) 8.5 K/mm3 4.5-12.5 N RED BLOOD CELL (test code = RBC) 4.54 mill/mm3 4.0-5.8 N HEMOGLOBIN (test code = HGB) 13.8 gram/dL 13.0-17.5 N HEMATOCRIT (test code = HCT) 41.0 % 42.0-52.0 L MEAN CELL VOLUME (test code = MCV) 90.3 fL 80-98 N MEAN CELL HGB (test code = MCH) 30.4 picogram 27.0-33.0 N MEAN CELL HGB CONCETRATION (test code = MCHC) 33.7 gram/dL 33.0-36. 0 N RED CELL DISTRIBUTION WIDTH (test code = RDW) 13.8 % 11.6-16. 2 N PLATELET COUNT (test code = PLT) 314 K/mm3 150-450 N MEAN PLATELET VOLUME (test code = MPV) 9.8 fL 6.7-11.0 N CBC W/O [id number] 14:07:00* Test Item Value Reference Range Interpretation Comments WHITE BLOOD CELL (test code = WBC) K/mm3 4.5-12.5 RED BLOOD CELL (test code = RBC) mill/mm3 4.0-5.8 HEMOGLOBIN (test code = HGB) 13.8 gram/dL 13.0-17.5 N HEMATOCRIT (test code = HCT) % 42.0-52.0 MEAN CELL VOLUME (test code = MCV) fL 80-98 MEAN CELL HGB (test code = MCH) picogram 27.0-33.0 MEAN CELL HGB CONCETRATION (test code = MCHC) gram/dL 33.0-36. 0 RED CELL DISTRIBUTION WIDTH (test code = RDW) % 11.6-16. 2 PLATELET COUNT (test code = PLT) K/mm3 150-450 MEAN PLATELET VOLUME (test code = MPV) fL 6.7-11.0 URINALYSIS [id number] 13:49:00* Test Item Value Reference Range Interpretation Comments UA COLOR (test code = COLU) YELLOW YELLOW UA APPEARANCE (test code = APPU) CLEAR CLEAR UA GLUCOSE DIPSTICK (test code = DGLUU) 150 (1+) mg/dL NEGATIVE A UA BILIRUBIN DIPSTICK (test code = BILU) NEGATIVE mg/dL NEGATIVE UA KETONE DIPSTICK (test code = KETU) 5 (Trace) mg/dL NEGATIVE A UA SPECIFIC GRAVITY (test code = SGU) 1.027 1.001-1.035 UA BLOOD DIPSTICK (test code = GREGOR) Negative NEGATIVE UA PH DIPSTICK (test code = REE) 5.0 5.0-8.0 UA PROTEIN DIPSTICK (test code = PROU) Negative mg/dL NEGATIVE UA UROBILINIOGEN DIPSTICK (test code = URO) NEGATIVE mg/dL NEGATIVE UA NITRITE DIPSTICK (test code = RUFINO) NEGATIVE NEGATIVE UA LEUKOCYTE ESTERASE W REFLEX (test code = LEUUR) NEGATIVE NEG ATIVE UA WBC (test code = WBCU) 0-5 #/HPF 0-5 UA RBC (test code = RBCU) 6-10 #/HPF 0-5 A UA EPITHELIAL CELLS (test code = EPIU) FEW per HPF FEW UA BACTERIA (test code = BACU) FEW #/HPF NONE A UA MUCUS (test code = MUCU) MANY #/LPF FEW A Urine Source? Clean CatchDRUGS OF ABUSE SCREEN [id number] 13:49:00* Test Item Value Reference Range Interpretation Comments URN COCAINE (test code = COCAURN) NEGATIVE <300 ng/mL URN CANNABINOIDS (test code = CANNABURN) NEGATIVE <50 ng/mL URN AMPHETAMINE (test code = AMPHETURN) NEGATIVE <1000 ng/mL URN BARBITURATE (test code = BARBITURN) NEGATIVE <200 ng/mL URN BENZODIAZEPINE (test code = BENZOURN) NEGATIVE <200 ng/mL URN OPIATES (test code = OPIATURN) NEGATIVE <300 ng/mL URN PHENCYCLIDINE (PCP) (test code = PHENCURN) NEGATIVE <25 ng/ mL URN METHADONE (test code = METHAURN) NEGATIVE <300 ng/mL Urine Source? Clean CatchURINALYSIS [id number] 13:40:00* Test Item Value Reference Range Interpretation Comments UA COLOR (test code = COLU) YELLOW YELLOW UA APPEARANCE (test code = APPU) CLEAR CLEAR UA GLUCOSE DIPSTICK (test code = DGLUU) 150 (1+) mg/dL NEGATIVE A UA BILIRUBIN DIPSTICK (test code = BILU) NEGATIVE mg/dL NEGATIVE UA KETONE DIPSTICK (test code = KETU) 5 (Trace) mg/dL NEGATIVE A UA SPECIFIC GRAVITY (test code = SGU) 1.027 1.001-1.035 UA BLOOD DIPSTICK (test code = GREGOR) Negative NEGATIVE UA PH DIPSTICK (test code = REE) 5.0 5.0-8.0 UA PROTEIN DIPSTICK (test code = PROU) Negative mg/dL NEGATIVE UA UROBILINIOGEN DIPSTICK (test code = URO) NEGATIVE mg/dL NEGATIVE UA NITRITE DIPSTICK (test code = RUFINO) NEGATIVE NEGATIVE UA LEUKOCYTE ESTERASE W REFLEX (test code = LEUUR) NEGATIVE NEG ATIVE UA WBC (test code = WBCU) 0-5 #/HPF 0-5 UA RBC (test code = RBCU) 6-10 #/HPF 0-5 A UA EPITHELIAL CELLS (test code = EPIU) FEW per HPF FEW UA BACTERIA (test code = BACU) FEW #/HPF NONE A UA MUCUS (test code = MUCU) MANY #/LPF FEW A Urine Source? Clean CatchDRUGS OF ABUSE SCREEN [id number] 13:40:00* Test Item Value Reference Range Interpretation Comments URN COCAINE (test code = COCAURN) <300 ng/mL URN CANNABINOIDS (test code = CANNABURN) <50 ng/mL URN AMPHETAMINE (test code = AMPHETURN) <1000 ng/mL URN BARBITURATE (test code = BARBITURN) <200 ng/mL URN BENZODIAZEPINE (test code = BENZOURN) <200 ng/mL URN OPIATES (test code = OPIATURN) <300 ng/mL URN PHENCYCLIDINE (PCP) (test code = PHENCURN) <25 ng/ mL URN METHADONE (test code = METHAURN) <300 ng/mL Urine Source? Clean CatchURINALYSIS [id number] 13:38:00* Test Item Value Reference Range Interpretation Comments UA COLOR (test code = COLU) YELLOW YELLOW UA APPEARANCE (test code = APPU) CLEAR CLEAR UA GLUCOSE DIPSTICK (test code = DGLUU) 150 (1+) mg/dL NEGATIVE A UA BILIRUBIN DIPSTICK (test code = BILU) NEGATIVE mg/dL NEGATIVE UA KETONE DIPSTICK (test code = KETU) 5 (Trace) mg/dL NEGATIVE A UA SPECIFIC GRAVITY (test code = SGU) 1.027 1.001-1.035 UA BLOOD DIPSTICK (test code = GREGOR) Negative NEGATIVE UA PH DIPSTICK (test code = REE) 5.0 5.0-8.0 UA PROTEIN DIPSTICK (test code = PROU) Negative mg/dL NEGATIVE UA UROBILINIOGEN DIPSTICK (test code = URO) NEGATIVE mg/dL NEGATIVE UA NITRITE DIPSTICK (test code = RUFINO) NEGATIVE NEGATIVE UA LEUKOCYTE ESTERASE W REFLEX (test code = LEUUR) NEGATIVE NEG ATIVE UA WBC (test code = WBCU) per HPF 0-5 Urine Source? Clean CatchDRUGS OF ABUSE SCREEN [id number] 13:38:00* Test Item Value Reference Range Interpretation Comments URN COCAINE (test code = COCAURN) <300 ng/mL URN CANNABINOIDS (test code = CANNABURN) <50 ng/mL URN AMPHETAMINE (test code = AMPHETURN) <1000 ng/mL URN BARBITURATE (test code = BARBITURN) <200 ng/mL URN BENZODIAZEPINE (test code = BENZOURN) <200 ng/mL URN OPIATES (test code = OPIATURN) <300 ng/mL URN PHENCYCLIDINE (PCP) (test code = PHENCURN) <25 ng/ mL URN METHADONE (test code = METHAURN) <300 ng/mL Urine Source? Clean CatchURINALYSIS [id number] 13:18:00* Test Item Value Reference Range Interpretation Comments UA COLOR (test code = COLU) YELLOW YELLOW UA APPEARANCE (test code = APPU) CLEAR CLEAR UA BILIRUBIN DIPSTICK (test code = BILU) NEGATIVE mg/dL NEGATIVE UA SPECIFIC GRAVITY (test code = SGU) 1.027 1.001-1.035 UA BLOOD DIPSTICK (test code = GREGOR) Negative NEGATIVE UA PH DIPSTICK (test code = REE) 5.0 5.0-8.0 UA PROTEIN DIPSTICK (test code = PROU) Negative mg/dL NEGATIVE UA UROBILINIOGEN DIPSTICK (test code = URO) NEGATIVE mg/dL NEGATIVE UA NITRITE DIPSTICK (test code = RUFINO) NEGATIVE NEGATIVE UA LEUKOCYTE ESTERASE W REFLEX (test code = LEUUR) NEGATIVE NEG ATIVE UA WBC (test code = WBCU) per HPF 0-5 Urine Source? Clean CatchDRUGS OF ABUSE SCREEN [id number] 13:18:00* Test Item Value Reference Range Interpretation Comments URN COCAINE (test code = COCAURN) <300 ng/mL URN CANNABINOIDS (test code = CANNABURN) <50 ng/mL URN AMPHETAMINE (test code = AMPHETURN) <1000 ng/mL URN BARBITURATE (test code = BARBITURN) <200 ng/mL URN BENZODIAZEPINE (test code = BENZOURN) <200 ng/mL URN OPIATES (test code = OPIATURN) <300 ng/mL URN PHENCYCLIDINE (PCP) (test code = PHENCURN) <25 ng/ mL URN METHADONE (test code = METHAURN) <300 ng/mL Urine Source? Clean CatchBASIC METABOLIC [id number] 11:24:00* Test Item Value Reference Range Interpretation Comments SODIUM (test code = NA) 132 mmol/L 136-145 L POTASSIUM (test code = K) 4.6 mmol/L 3.5-5.1 N S pecimen 1+ Hemolysed.Some results MAY NOT be accurate due to hemolysis. CHLORIDE (test code = CL) 98.0 mmol/L 98-107 N CARBON DIOXIDE (test code = CO2) 23.0 mmol/L 21-32 N ANION GAP (test code = GAP) 15.6 10-20 N GLUCOSE (test code = GLU) 156 mg/dL 74-106 H BLOOD UREA NITROGEN (test code = BUN) 13 mg/dL 7-18 N GLOMERULAR FILTRATION RATE (test code = GFR) > 60 mL/min >=60 Estimated GFR by using Modified MDRD formula.Chronic kidney disease is defined as either kidney damageor GFR <60 mL/min/1.73 m2 for >3 months. CREATININE (test code = CREAT) 0.80 mg/dL 0.7-1.3 N BUN/CREATININE RATIO (test code = BUN/CREA) 16.6 10-20 N CALCIUM (test code = CA) 9.4 mg/dL 8.5-10.1 N HEPATIC FUNCTION [id number] 11:24:00* Test Item Value Reference Range Interpretation Comments TOTAL PROTEIN (test code = PROT) 8.2 gram/dL 6.4-8.2 N ALBUMIN (test code = ALB) 4.0 g/dL 3.4-5.0 N GLOBULIN (test code = GLOB) 4.2 gram/dL 2.7-4.2 N ALBUMIN/GLOBULIN RATIO (test code = A/G) 1.0 0.75-1.50 N BILIRUBIN TOTAL (test code = BILT) 0.40 mg/dL 0.0-1.0 N BILIRUBIN DIRECT (test code = BILD) 0.10 mg/dL 0.0-0.20 N SGOT/AST (test code = AST) 85 IUnit/L 15-37 H SGPT/ALT (test code = ALT) 67 IUnit/L 12-78 N ALKALINE PHOSPHATASE TOTAL (test code = ALKP) 64 IUnit/L 45-117 N Note change in reference range due to change in reagent. [id number] 11:24:00* Test Item Value Reference Range Interpretation Comments LIPASE (test code = LIP) 174 U/L 73.0-393.0 N BASIC METABOLIC [id number] 11:14:00* Test Item Value Reference Range Interpretation Comments SODIUM (test code = NA) 132 mmol/L 136-145 L POTASSIUM (test code = K) 4.6 mmol/L 3.5-5.1 N CHLORIDE (test code = CL) 98.0 mmol/L 98-107 N CARBON DIOXIDE (test code = CO2) 23.0 mmol/L 21-32 N ANION GAP (test code = GAP) 15.6 10-20 N GLUCOSE (test code = GLU) 156 mg/dL 74-106 H BLOOD UREA NITROGEN (test code = BUN) 13 mg/dL 7-18 N GLOMERULAR FILTRATION RATE (test code = GFR) > 60 mL/min >=60 Estimated GFR by using Modified MDRD formula.Chronic kidney disease is defined as either kidney damageor GFR <60 mL/min/1.73 m2 for >3 months. CREATININE (test code = CREAT) 0.80 mg/dL 0.7-1.3 N BUN/CREATININE RATIO (test code = BUN/CREA) 16.6 10-20 N CALCIUM (test code = CA) 9.4 mg/dL 8.5-10.1 N HEPATIC FUNCTION [id number] 11:14:00* Test Item Value Reference Range Interpretation Comments TOTAL PROTEIN (test code = PROT) 8.2 gram/dL 6.4-8.2 N ALBUMIN (test code = ALB) 4.0 g/dL 3.4-5.0 N GLOBULIN (test code = GLOB) 4.2 gram/dL 2.7-4.2 N ALBUMIN/GLOBULIN RATIO (test code = A/G) 1.0 0.75-1.50 N BILIRUBIN TOTAL (test code = BILT) 0.40 mg/dL 0.0-1.0 N BILIRUBIN DIRECT (test code = BILD) 0.10 mg/dL 0.0-0.20 N SGOT/AST (test code = AST) 85 IUnit/L 15-37 H SGPT/ALT (test code = ALT) 67 IUnit/L 12-78 N ALKALINE PHOSPHATASE TOTAL (test code = ALKP) 64 IUnit/L 45-117 N Note change in reference range due to change in reagent. [id number] 11:14:00* Test Item Value Reference Range Interpretation Comments LIPASE (test code = LIP) 174 U/L 73.0-393.0 N BASIC METABOLIC [id number] 11:06:00* Test Item Value Reference Range Interpretation Comments SODIUM (test code = NA) 132 mmol/L 136-145 L POTASSIUM (test code = K) 4.6 mmol/L 3.5-5.1 N CHLORIDE (test code = CL) 98.0 mmol/L 98-107 N CARBON DIOXIDE (test code = CO2) mmol/L 21-32 ANION GAP (test code = GAP) 10-20 GLUCOSE (test code = GLU) mg/dL 74-106 BLOOD UREA NITROGEN (test code = BUN) mg/dL 7-18 GLOMERULAR FILTRATION RATE (test code = GFR) mL/min >=60 CREATININE (test code = CREAT) mg/dL 0.7-1.3 BUN/CREATININE RATIO (test code = BUN/CREA) 10-20 CALCIUM (test code = CA) mg/dL 8.5-10.1 HEPATIC FUNCTION [id number] 11:06:00* Test Item Value Reference Range Interpretation Comments TOTAL PROTEIN (test code = PROT) gram/dL 6.4-8.2 ALBUMIN (test code = ALB) g/dL 3.4-5.0 GLOBULIN (test code = GLOB) gram/dL 2.7-4.2 ALBUMIN/GLOBULIN RATIO (test code = A/G) 0.75-1.50 BILIRUBIN TOTAL (test code = BILT) mg/dL 0.0-1.0 BILIRUBIN DIRECT (test code = BILD) mg/dL 0.0-0.20 SGOT/AST (test code = AST) IUnit/L 15-37 SGPT/ALT (test code = ALT) IUnit/L 12-78 ALKALINE PHOSPHATASE TOTAL (test code = ALKP) IUnit/L 45-117 [id number] 11:06:00* Test Item Value Reference Range Interpretation Comments LIPASE (test code = LIP) U/L 73.0-393.0 CBC W/O [id number] 10:55:00* Test Item Value Reference Range Interpretation Comments WHITE BLOOD CELL (test code = WBC) 6.5 K/mm3 4.5-12.5 N RED BLOOD CELL (test code = RBC) 4.44 mill/mm3 4.0-5.8 N HEMOGLOBIN (test code = HGB) 13.7 gram/dL 13.0-17.5 N HEMATOCRIT (test code = HCT) 40.5 % 42.0-52.0 L MEAN CELL VOLUME (test code = MCV) 91.2 fL 80-98 N MEAN CELL HGB (test code = MCH) 30.9 picogram 27.0-33.0 N MEAN CELL HGB CONCETRATION (test code = MCHC) 33.8 gram/dL 33.0-36. 0 N RED CELL DISTRIBUTION WIDTH (test code = RDW) 14.0 % 11.6-16. 2 N PLATELET COUNT (test code = PLT) 318 K/mm3 150-450 N MEAN PLATELET VOLUME (test code = MPV) 9.3 fL 6.7-11.0 N URINALYSIS [id number] 10:54:00* Test Item Value Reference Range Interpretation Comments UA COLOR (test code = COLU) YELLOW YELLOW UA APPEARANCE (test code = APPU) CLEAR CLEAR UA GLUCOSE DIPSTICK (test code = DGLUU) >=500 mg/dL NEGATIVE A UA BILIRUBIN DIPSTICK (test code = BILU) NEGATIVE mg/dL NEGATIVE UA KETONE DIPSTICK (test code = KETU) 20 (Small) mg/dL NEGATIVE A UA SPECIFIC GRAVITY (test code = SGU) 1.030 1.001-1.035 UA BLOOD DIPSTICK (test code = GREGOR) Negative NEGATIVE UA PH DIPSTICK (test code = REE) 5.0 5.0-8.0 UA PROTEIN DIPSTICK (test code = PROU) 30 (1+) mg/dL NEGATIVE A UA UROBILINIOGEN DIPSTICK (test code = URO) NEGATIVE mg/dL NEGATIVE UA NITRITE DIPSTICK (test code = RUFINO) NEGATIVE NEGATIVE UA LEUKOCYTE ESTERASE W REFLEX (test code = LEUUR) NEGATIVE NEG ATIVE UA WBC (test code = WBCU) 0-5 #/HPF 0-5 UA RBC (test code = RBCU) 0-2 #/HPF 0-5 UA EPITHELIAL CELLS (test code = EPIU) FEW per HPF FEW UA BACTERIA (test code = BACU) NONE SEEN #/HPF NONE UA MUCUS (test code = MUCU) MODERATE #/LPF FEW A Urine Source? Clean CatchURINALYSIS [id number] 10:51:00* Test Item Value Reference Range Interpretation Comments UA COLOR (test code = COLU) YELLOW YELLOW UA APPEARANCE (test code = APPU) CLEAR CLEAR UA GLUCOSE DIPSTICK (test code = DGLUU) >=500 mg/dL NEGATIVE A UA BILIRUBIN DIPSTICK (test code = BILU) NEGATIVE mg/dL NEGATIVE UA KETONE DIPSTICK (test code = KETU) 20 (Small) mg/dL NEGATIVE A UA SPECIFIC GRAVITY (test code = SGU) 1.030 1.001-1.035 UA BLOOD DIPSTICK (test code = GREGOR) Negative NEGATIVE UA PH DIPSTICK (test code = REE) 5.0 5.0-8.0 UA PROTEIN DIPSTICK (test code = PROU) 30 (1+) mg/dL NEGATIVE A UA UROBILINIOGEN DIPSTICK (test code = URO) NEGATIVE mg/dL NEGATIVE UA NITRITE DIPSTICK (test code = RUFINO) NEGATIVE NEGATIVE UA LEUKOCYTE ESTERASE W REFLEX (test code = LEUUR) NEGATIVE NEG ATIVE UA WBC (test code = WBCU) per HPF 0-5 Urine Source? Clean CatchURINALYSIS [id number] 13:43:00* Test Item Value Reference Range Interpretation Comments UA COLOR (test code = COLU) YELLOW YELLOW UA APPEARANCE (test code = APPU) CLEAR CLEAR UA GLUCOSE DIPSTICK (test code = DGLUU) >=500 mg/dL NEGATIVE A UA BILIRUBIN DIPSTICK (test code = BILU) NEGATIVE mg/dL NEGATIVE UA KETONE DIPSTICK (test code = KETU) 5 (Trace) mg/dL NEGATIVE A UA SPECIFIC GRAVITY (test code = SGU) 1.026 1.001-1.035 UA BLOOD DIPSTICK (test code = GREGOR) Negative NEGATIVE UA PH DIPSTICK (test code = REE) 5.0 5.0-8.0 UA PROTEIN DIPSTICK (test code = PROU) Negative mg/dL NEGATIVE UA UROBILINIOGEN DIPSTICK (test code = URO) NEGATIVE mg/dL NEGATIVE UA NITRITE DIPSTICK (test code = RUFINO) NEGATIVE NEGATIVE UA LEUKOCYTE ESTERASE W REFLEX (test code = LEUUR) NEGATIVE NEG ATIVE UA WBC (test code = WBCU) 0-5 #/HPF 0-5 UA EPITHELIAL CELLS (test code = EPIU) FEW per HPF FEW UA MUCUS (test code = MUCU) MODERATE #/LPF FEW A Urine Source? Clean CatchDRUGS OF ABUSE SCREEN [id number] 13:43:00* Test Item Value Reference Range Interpretation Comments URN COCAINE (test code = COCAURN) NEGATIVE <300 ng/mL URN CANNABINOIDS (test code = CANNABURN) NEGATIVE <50 ng/mL URN AMPHETAMINE (test code = AMPHETURN) NEGATIVE <1000 ng/mL URN BARBITURATE (test code = BARBITURN) NEGATIVE <200 ng/mL URN BENZODIAZEPINE (test code = BENZOURN) NEGATIVE <200 ng/mL URN OPIATES (test code = OPIATURN) NEGATIVE <300 ng/mL URN PHENCYCLIDINE (PCP) (test code = PHENCURN) NEGATIVE <25 ng/ mL URN METHADONE (test code = METHAURN) NEGATIVE <300 ng/mL Urine Source? Clean CatchURINALYSIS [id number] 13:40:00* Test Item Value Reference Range Interpretation Comments UA COLOR (test code = COLU) YELLOW YELLOW UA APPEARANCE (test code = APPU) CLEAR CLEAR UA GLUCOSE DIPSTICK (test code = DGLUU) >=500 mg/dL NEGATIVE A UA BILIRUBIN DIPSTICK (test code = BILU) NEGATIVE mg/dL NEGATIVE UA KETONE DIPSTICK (test code = KETU) 5 (Trace) mg/dL NEGATIVE A UA SPECIFIC GRAVITY (test code = SGU) 1.026 1.001-1.035 UA BLOOD DIPSTICK (test code = GREGOR) Negative NEGATIVE UA PH DIPSTICK (test code = REE) 5.0 5.0-8.0 UA PROTEIN DIPSTICK (test code = PROU) Negative mg/dL NEGATIVE UA UROBILINIOGEN DIPSTICK (test code = URO) NEGATIVE mg/dL NEGATIVE UA NITRITE DIPSTICK (test code = RUFINO) NEGATIVE NEGATIVE UA LEUKOCYTE ESTERASE W REFLEX (test code = LEUUR) NEGATIVE NEG ATIVE UA WBC (test code = WBCU) per HPF 0-5 Urine Source? Clean CatchDRUGS OF ABUSE SCREEN [id number] 13:40:00* Test Item Value Reference Range Interpretation Comments URN COCAINE (test code = COCAURN) <300 ng/mL URN CANNABINOIDS (test code = CANNABURN) <50 ng/mL URN AMPHETAMINE (test code = AMPHETURN) <1000 ng/mL URN BARBITURATE (test code = BARBITURN) <200 ng/mL URN BENZODIAZEPINE (test code = BENZOURN) <200 ng/mL URN OPIATES (test code = OPIATURN) <300 ng/mL URN PHENCYCLIDINE (PCP) (test code = PHENCURN) <25 ng/ mL URN METHADONE (test code = METHAURN) <300 ng/mL Urine Source? Clean CatchURINALYSIS [id number] 13:40:00* Test Item Value Reference Range Interpretation Comments UA COLOR (test code = COLU) YELLOW YELLOW UA APPEARANCE (test code = APPU) CLEAR CLEAR UA GLUCOSE DIPSTICK (test code = DGLUU) >=500 mg/dL NEGATIVE A UA BILIRUBIN DIPSTICK (test code = BILU) NEGATIVE mg/dL NEGATIVE UA KETONE DIPSTICK (test code = KETU) 5 (Trace) mg/dL NEGATIVE A UA SPECIFIC GRAVITY (test code = SGU) 1.026 1.001-1.035 UA BLOOD DIPSTICK (test code = GREGOR) Negative NEGATIVE UA PH DIPSTICK (test code = REE) 5.0 5.0-8.0 UA PROTEIN DIPSTICK (test code = PROU) Negative mg/dL NEGATIVE UA UROBILINIOGEN DIPSTICK (test code = URO) NEGATIVE mg/dL NEGATIVE UA NITRITE DIPSTICK (test code = RUFINO) NEGATIVE NEGATIVE UA LEUKOCYTE ESTERASE W REFLEX (test code = LEUUR) NEGATIVE NEG ATIVE UA WBC (test code = WBCU) 0-5 #/HPF 0-5 UA EPITHELIAL CELLS (test code = EPIU) FEW per HPF FEW Urine Source? Clean CatchDRUGS OF ABUSE SCREEN [id number] 13:40:00* Test Item Value Reference Range Interpretation Comments URN COCAINE (test code = COCAURN) <300 ng/mL URN CANNABINOIDS (test code = CANNABURN) <50 ng/mL URN AMPHETAMINE (test code = AMPHETURN) <1000 ng/mL URN BARBITURATE (test code = BARBITURN) <200 ng/mL URN BENZODIAZEPINE (test code = BENZOURN) <200 ng/mL URN OPIATES (test code = OPIATURN) <300 ng/mL URN PHENCYCLIDINE (PCP) (test code = PHENCURN) <25 ng/ mL URN METHADONE (test code = METHAURN) <300 ng/mL Urine Source? Clean CatchURINALYSIS [id number] 13:40:00* Test Item Value Reference Range Interpretation Comments UA COLOR (test code = COLU) YELLOW YELLOW UA APPEARANCE (test code = APPU) CLEAR CLEAR UA GLUCOSE DIPSTICK (test code = DGLUU) >=500 mg/dL NEGATIVE A UA BILIRUBIN DIPSTICK (test code = BILU) NEGATIVE mg/dL NEGATIVE UA KETONE DIPSTICK (test code = KETU) 5 (Trace) mg/dL NEGATIVE A UA SPECIFIC GRAVITY (test code = SGU) 1.026 1.001-1.035 UA BLOOD DIPSTICK (test code = GREGOR) Negative NEGATIVE UA PH DIPSTICK (test code = REE) 5.0 5.0-8.0 UA PROTEIN DIPSTICK (test code = PROU) Negative mg/dL NEGATIVE UA UROBILINIOGEN DIPSTICK (test code = URO) NEGATIVE mg/dL NEGATIVE UA NITRITE DIPSTICK (test code = RUFINO) NEGATIVE NEGATIVE UA LEUKOCYTE ESTERASE W REFLEX (test code = LEUUR) NEGATIVE NEG ATIVE UA WBC (test code = WBCU) 0-5 #/HPF 0-5 UA EPITHELIAL CELLS (test code = EPIU) FEW per HPF FEW UA MUCUS (test code = MUCU) MODERATE #/LPF FEW A Urine Source? Clean CatchDRUGS OF ABUSE SCREEN [id number] 13:40:00* Test Item Value Reference Range Interpretation Comments URN COCAINE (test code = COCAURN) <300 ng/mL URN CANNABINOIDS (test code = CANNABURN) <50 ng/mL URN AMPHETAMINE (test code = AMPHETURN) <1000 ng/mL URN BARBITURATE (test code = BARBITURN) <200 ng/mL URN BENZODIAZEPINE (test code = BENZOURN) <200 ng/mL URN OPIATES (test code = OPIATURN) <300 ng/mL URN PHENCYCLIDINE (PCP) (test code = PHENCURN) <25 ng/ mL URN METHADONE (test code = METHAURN) <300 ng/mL Urine Source? Clean CatchURINALYSIS [id number] 13:21:00* Test Item Value Reference Range Interpretation Comments UA COLOR (test code = COLU) YELLOW YELLOW UA APPEARANCE (test code = APPU) CLEAR CLEAR UA BILIRUBIN DIPSTICK (test code = BILU) NEGATIVE mg/dL NEGATIVE UA SPECIFIC GRAVITY (test code = SGU) 1.026 1.001-1.035 UA BLOOD DIPSTICK (test code = GREGOR) Negative NEGATIVE UA PH DIPSTICK (test code = REE) 5.0 5.0-8.0 UA PROTEIN DIPSTICK (test code = PROU) Negative mg/dL NEGATIVE UA UROBILINIOGEN DIPSTICK (test code = URO) NEGATIVE mg/dL NEGATIVE UA NITRITE DIPSTICK (test code = RUFINO) NEGATIVE NEGATIVE UA LEUKOCYTE ESTERASE W REFLEX (test code = LEUUR) NEGATIVE NEG ATIVE UA WBC (test code = WBCU) per HPF 0-5 Urine Source? Clean CatchDRUGS OF ABUSE SCREEN [id number] 13:21:00* Test Item Value Reference Range Interpretation Comments URN COCAINE (test code = COCAURN) <300 ng/mL URN CANNABINOIDS (test code = CANNABURN) <50 ng/mL URN AMPHETAMINE (test code = AMPHETURN) <1000 ng/mL URN BARBITURATE (test code = BARBITURN) <200 ng/mL URN BENZODIAZEPINE (test code = BENZOURN) <200 ng/mL URN OPIATES (test code = OPIATURN) <300 ng/mL URN PHENCYCLIDINE (PCP) (test code = PHENCURN) <25 ng/ mL URN METHADONE (test code = METHAURN) <300 ng/mL Urine Source? Clean CatchBASIC METABOLIC [id number] 12:39:00* Test Item Value Reference Range Interpretation Comments SODIUM (test code = NA) 133 mmol/L 136-145 L POTASSIUM (test code = K) 4.0 mmol/L 3.5-5.1 N CHLORIDE (test code = CL) 99.0 mmol/L 98-107 N CARBON DIOXIDE (test code = CO2) 26.0 mmol/L 21-32 N ANION GAP (test code = GAP) 12.0 10-20 N GLUCOSE (test code = GLU) 235 mg/dL 74-106 H BLOOD UREA NITROGEN (test code = BUN) 14 mg/dL 7-18 N GLOMERULAR FILTRATION RATE (test code = GFR) > 60 mL/min >=60 Estimated GFR by using Modified MDRD formula.Chronic kidney disease is defined as either kidney damageor GFR <60 mL/min/1.73 m2 for >3 months. CREATININE (test code = CREAT) 0.90 mg/dL 0.7-1.3 N BUN/CREATININE RATIO (test code = BUN/CREA) 15.9 10-20 N CALCIUM (test code = CA) 9.4 mg/dL 8.5-10.1 N HEPATIC FUNCTION [id number] 12:39:00* Test Item Value Reference Range Interpretation Comments TOTAL PROTEIN (test code = PROT) 8.0 gram/dL 6.4-8.2 N ALBUMIN (test code = ALB) 3.8 g/dL 3.4-5.0 N GLOBULIN (test code = GLOB) 4.2 gram/dL 2.7-4.2 N ALBUMIN/GLOBULIN RATIO (test code = A/G) 0.9 0.75-1.50 N BILIRUBIN TOTAL (test code = BILT) 0.30 mg/dL 0.0-1.0 N BILIRUBIN DIRECT (test code = BILD) 0.07 mg/dL 0.0-0.20 N SGOT/AST (test code = AST) 87 IUnit/L 15-37 H SGPT/ALT (test code = ALT) 67 IUnit/L 12-78 N ALKALINE PHOSPHATASE TOTAL (test code = ALKP) 71 IUnit/L 45-117 N Note change in reference range due to change in reagent. [id number] 12:39:00* Test Item Value Reference Range Interpretation Comments ALCOHOL (test code = ALC) < 3 mg/dL 0.0-3.0 N -- INTERPRETIVE DATA NOTE: POSITIVE SCREENING RESULTS SHOULD BE CONSIDERED PRESUMPTIVE.WHEN COLLECTED FOR MEDICAL PURPOSES ONLY. SPECIMEN WILL NOTBE COLLECTED BY CHAIN OF CUSTODY.IF A CONFIRMATION OF POSITIVE RESULTS IS DESIRED, ACONFIRMATION TEST MUST BE REQUESTED BY THE PHYSICIAN AT ANADDITIONAL CHARGE TO THE PATIENT. VALPROIC ACID (DEPAKENE)2018-05-08 12:39:00* Test Item Value Reference Range Interpretation Comments VALPROIC ACID (DEPAKENE) (test code = VALP) 62.0 mcg/mL 50.0-100.0 N BASIC METABOLIC [id number] 12:35:00* Test Item Value Reference Range Interpretation Comments SODIUM (test code = NA) 133 mmol/L 136-145 L POTASSIUM (test code = K) 4.0 mmol/L 3.5-5.1 N CHLORIDE (test code = CL) 99.0 mmol/L 98-107 N CARBON DIOXIDE (test code = CO2) mmol/L 21-32 ANION GAP (test code = GAP) 10-20 GLUCOSE (test code = GLU) mg/dL 74-106 BLOOD UREA NITROGEN (test code = BUN) mg/dL 7-18 GLOMERULAR FILTRATION RATE (test code = GFR) mL/min >=60 CREATININE (test code = CREAT) mg/dL 0.7-1.3 BUN/CREATININE RATIO (test code = BUN/CREA) 10-20 CALCIUM (test code = CA) mg/dL 8.5-10.1 HEPATIC FUNCTION [id number] 12:35:00* Test Item Value Reference Range Interpretation Comments TOTAL PROTEIN (test code = PROT) gram/dL 6.4-8.2 ALBUMIN (test code = ALB) g/dL 3.4-5.0 GLOBULIN (test code = GLOB) gram/dL 2.7-4.2 ALBUMIN/GLOBULIN RATIO (test code = A/G) 0.75-1.50 BILIRUBIN TOTAL (test code = BILT) mg/dL 0.0-1.0 BILIRUBIN DIRECT (test code = BILD) mg/dL 0.0-0.20 SGOT/AST (test code = AST) IUnit/L 15-37 SGPT/ALT (test code = ALT) IUnit/L 12-78 ALKALINE PHOSPHATASE TOTAL (test code = ALKP) IUnit/L 45-117 [id number] 12:35:00* Test Item Value Reference Range Interpretation Comments ALCOHOL (test code = ALC) mg/dL 0-3 CBC W/AUTO [id number] 12:30:00* Test Item Value Reference Range Interpretation Comments WHITE BLOOD CELL (test code = WBC) 6.7 K/mm3 4.5-12.5 N RED BLOOD CELL (test code = RBC) 4.29 mill/mm3 4.0-5.8 N HEMOGLOBIN (test code = HGB) 13.1 gram/dL 13.0-17.5 N HEMATOCRIT (test code = HCT) 39.1 % 42.0-52.0 L MEAN CELL VOLUME (test code = MCV) 91.1 fL 80-98 N MEAN CELL HGB (test code = MCH) 30.5 picogram 27.0-33.0 N MEAN CELL HGB CONCETRATION (test code = MCHC) 33.5 gram/dL 33.0-36. 0 N RED CELL DISTRIBUTION WIDTH (test code = RDW) 14.1 % 11.6-16. 2 N RED CELL DISTRIBUTION WIDTH SD (test code = RDW-SD) 47.2 fL 37 .0-51.0 N PLATELET COUNT (test code = PLT) 314 K/mm3 150-450 N MEAN PLATELET VOLUME (test code = MPV) 9.4 fL 6.7-11.0 N NEUTROPHIL % (test code = NT%) 55.7 % 39.0-69.0 N IMMATURE GRANULOCYTE % (test code = IG%) 0.7 % 0.0-5.0 N LYMPHOCYTE % (test code = LY%) 31.0 % 25.0-55.0 N MONOCYTE % (test code = MO%) 10.4 % 0.0-10.0 H EOSINOPHIL % (test code = EO%) 1.6 % 0.0-5.0 N BASOPHIL % (test code = BA%) 0.6 % 0.0-1.0 N NUCLEATED RBC % (test code = NRBC%) 0.0 % 0-0 N NEUTROPHIL # (test code = NT#) 3.74 K/mm3 1.8-7.7 N IMMATURE GRANULOCYTE # (test code = IG#) 0.05 x10 3/uL 0-0.03 H LYMPHOCYTE # (test code = LY#) 2.08 K/mm3 1.0-5.0 N MONOCYTE # (test code = MO#) 0.70 K/mm3 0-0.8 N EOSINOPHIL # (test code = EO#) 0.11 K/mm3 0.0-0.5 N BASOPHIL # (test code = BA#) 0.04 K/mm3 0.0-0.2 N NUCLEATED RBC # (test code = NRBC#) 0.00 K/mm3 0.0-0.1 N [id number] 15:54:00* Test Item Value Reference Range Interpretation Comments DIGOXIN (test code = DIG) 1.0 ng/mL 0.90-2.0 N NO TE: Spironolactone interference may cause a decrease inreported Digoxin results of 11-30 %. VALPROIC ACID (DEPAKENE)2018-05-05 15:43:00* Test Item Value Reference Range Interpretation Comments VALPROIC ACID (DEPAKENE) (test code = VALP) 106.0 mcg/mL 50.0-100.0 H COMPREHENSIVE METABOLIC [id number] 15:37:00* Test Item Value Reference Range Interpretation Comments SODIUM (test code = NA) 134 mmol/L 136-145 L POTASSIUM (test code = K) 5.2 mmol/L 3.5-5.1 H S pecimen 1+ Hemolysed.Results MAY NOT be accurate due to hemolysis. CHLORIDE (test code = CL) 99.0 mmol/L 98-107 N CARBON DIOXIDE (test code = CO2) 27.0 mmol/L 21-32 N ANION GAP (test code = GAP) 13.2 10-20 N GLUCOSE (test code = GLU) 161 mg/dL 74-106 H BLOOD UREA NITROGEN (test code = BUN) 16 mg/dL 7-18 N GLOMERULAR FILTRATION RATE (test code = GFR) > 60 mL/min >=60 Estimated GFR by using Modified MDRD formula.Chronic kidney disease is defined as either kidney damageor GFR <60 mL/min/1.73 m2 for >3 months. CREATININE (test code = CREAT) 0.90 mg/dL 0.7-1.3 N BUN/CREATININE RATIO (test code = BUN/CREA) 17.1 10-20 N TOTAL PROTEIN (test code = PROT) 8.3 gram/dL 6.4-8.2 H ALBUMIN (test code = ALB) 3.8 g/dL 3.4-5.0 N GLOBULIN (test code = GLOB) 4.5 gram/dL 2.7-4.2 H ALBUMIN/GLOBULIN RATIO (test code = A/G) 0.8 0.75-1.50 N CALCIUM (test code = CA) 10.0 mg/dL 8.5-10.1 N BILIRUBIN TOTAL (test code = BILT) 0.40 mg/dL 0.0-1.0 N SGOT/AST (test code = AST) 53 IUnit/L 15-37 H SGPT/ALT (test code = ALT) 42 IUnit/L 12-78 N ALKALINE PHOSPHATASE TOTAL (test code = ALKP) 53 IUnit/L 45-117 N Note change in reference range due to change in reagent. COMPREHENSIVE METABOLIC [id number] 15:34:00* Test Item Value Reference Range Interpretation Comments SODIUM (test code = NA) 134 mmol/L 136-145 L POTASSIUM (test code = K) 5.2 mmol/L 3.5-5.1 H S pecimen 1+ Hemolysed.Results MAY NOT be accurate due to hemolysis. CHLORIDE (test code = CL) 99.0 mmol/L 98-107 N CARBON DIOXIDE (test code = CO2) mmol/L 21-32 ANION GAP (test code = GAP) 10-20 GLUCOSE (test code = GLU) mg/dL 74-106 BLOOD UREA NITROGEN (test code = BUN) mg/dL 7-18 GLOMERULAR FILTRATION RATE (test code = GFR) mL/min >=60 CREATININE (test code = CREAT) mg/dL 0.7-1.3 BUN/CREATININE RATIO (test code = BUN/CREA) 10-20 TOTAL PROTEIN (test code = PROT) gram/dL 6.4-8.2 ALBUMIN (test code = ALB) g/dL 3.4-5.0 GLOBULIN (test code = GLOB) gram/dL 2.7-4.2 ALBUMIN/GLOBULIN RATIO (test code = A/G) 0.75-1.50 CALCIUM (test code = CA) mg/dL 8.5-10.1 BILIRUBIN TOTAL (test code = BILT) mg/dL 0.0-1.0 SGOT/AST (test code = AST) IUnit/L 15-37 SGPT/ALT (test code = ALT) IUnit/L 12-78 ALKALINE PHOSPHATASE TOTAL (test code = ALKP) IUnit/L 45-117 URINALYSIS [id number] 15:18:00* Test Item Value Reference Range Interpretation Comments UA COLOR (test code = COLU) YELLOW YELLOW UA APPEARANCE (test code = APPU) CLEAR CLEAR UA GLUCOSE DIPSTICK (test code = DGLUU) >=500 mg/dL NEGATIVE A UA BILIRUBIN DIPSTICK (test code = BILU) NEGATIVE mg/dL NEGATIVE UA KETONE DIPSTICK (test code = KETU) 5 (Trace) mg/dL NEGATIVE A UA SPECIFIC GRAVITY (test code = SGU) 1.025 1.001-1.035 UA BLOOD DIPSTICK (test code = GREGOR) Negative NEGATIVE UA PH DIPSTICK (test code = REE) 7.0 5.0-8.0 UA PROTEIN DIPSTICK (test code = PROU) 30 (1+) mg/dL NEGATIVE A UA UROBILINIOGEN DIPSTICK (test code = URO) NEGATIVE mg/dL NEGATIVE UA NITRITE DIPSTICK (test code = RUFINO) NEGATIVE NEGATIVE UA LEUKOCYTE ESTERASE W REFLEX (test code = LEUUR) NEGATIVE NEG ATIVE UA WBC (test code = WBCU) 0-5 #/HPF 0-5 UA RBC (test code = RBCU) 0-2 #/HPF 0-5 UA EPITHELIAL CELLS (test code = EPIU) FEW per HPF FEW UA BACTERIA (test code = BACU) FEW #/HPF NONE A UA MUCUS (test code = MUCU) FEW #/LPF FEW URINALYSIS [id number] 15:16:00* Test Item Value Reference Range Interpretation Comments UA COLOR (test code = COLU) YELLOW YELLOW UA APPEARANCE (test code = APPU) CLEAR CLEAR UA GLUCOSE DIPSTICK (test code = DGLUU) >=500 mg/dL NEGATIVE A UA BILIRUBIN DIPSTICK (test code = BILU) NEGATIVE mg/dL NEGATIVE UA KETONE DIPSTICK (test code = KETU) 5 (Trace) mg/dL NEGATIVE A UA SPECIFIC GRAVITY (test code = SGU) 1.025 1.001-1.035 UA BLOOD DIPSTICK (test code = GREGOR) Negative NEGATIVE UA PH DIPSTICK (test code = REE) 7.0 5.0-8.0 UA PROTEIN DIPSTICK (test code = PROU) 30 (1+) mg/dL NEGATIVE A UA UROBILINIOGEN DIPSTICK (test code = URO) NEGATIVE mg/dL NEGATIVE UA NITRITE DIPSTICK (test code = RUFINO) NEGATIVE NEGATIVE UA LEUKOCYTE ESTERASE W REFLEX (test code = LEUUR) NEGATIVE NEG ATIVE UA WBC (test code = WBCU) per HPF 0-5 URINALYSIS [id number] 15:16:00* Test Item Value Reference Range Interpretation Comments UA COLOR (test code = COLU) YELLOW YELLOW UA APPEARANCE (test code = APPU) CLEAR CLEAR UA GLUCOSE DIPSTICK (test code = DGLUU) >=500 mg/dL NEGATIVE A UA BILIRUBIN DIPSTICK (test code = BILU) NEGATIVE mg/dL NEGATIVE UA KETONE DIPSTICK (test code = KETU) 5 (Trace) mg/dL NEGATIVE A UA SPECIFIC GRAVITY (test code = SGU) 1.025 1.001-1.035 UA BLOOD DIPSTICK (test code = GREGOR) Negative NEGATIVE UA PH DIPSTICK (test code = REE) 7.0 5.0-8.0 UA PROTEIN DIPSTICK (test code = PROU) 30 (1+) mg/dL NEGATIVE A UA UROBILINIOGEN DIPSTICK (test code = URO) NEGATIVE mg/dL NEGATIVE UA NITRITE DIPSTICK (test code = RUFINO) NEGATIVE NEGATIVE UA LEUKOCYTE ESTERASE W REFLEX (test code = LEUUR) NEGATIVE NEG ATIVE UA WBC (test code = WBCU) 0-5 #/HPF 0-5 UA RBC (test code = RBCU) 0-2 #/HPF 0-5 UA EPITHELIAL CELLS (test code = EPIU) FEW per HPF FEW URINALYSIS [id number] 15:16:00* Test Item Value Reference Range Interpretation Comments UA COLOR (test code = COLU) YELLOW YELLOW UA APPEARANCE (test code = APPU) CLEAR CLEAR UA GLUCOSE DIPSTICK (test code = DGLUU) >=500 mg/dL NEGATIVE A UA BILIRUBIN DIPSTICK (test code = BILU) NEGATIVE mg/dL NEGATIVE UA KETONE DIPSTICK (test code = KETU) 5 (Trace) mg/dL NEGATIVE A UA SPECIFIC GRAVITY (test code = SGU) 1.025 1.001-1.035 UA BLOOD DIPSTICK (test code = GREGOR) Negative NEGATIVE UA PH DIPSTICK (test code = REE) 7.0 5.0-8.0 UA PROTEIN DIPSTICK (test code = PROU) 30 (1+) mg/dL NEGATIVE A UA UROBILINIOGEN DIPSTICK (test code = URO) NEGATIVE mg/dL NEGATIVE UA NITRITE DIPSTICK (test code = RUFINO) NEGATIVE NEGATIVE UA LEUKOCYTE ESTERASE W REFLEX (test code = LEUUR) NEGATIVE NEG ATIVE UA WBC (test code = WBCU) per HPF 0-5 CBC W/AUTO [id number] 15:04:00* Test Item Value Reference Range Interpretation Comments WHITE BLOOD CELL (test code = WBC) 7.7 K/mm3 4.5-12.5 N RED BLOOD CELL (test code = RBC) 4.37 mill/mm3 4.0-5.8 N HEMOGLOBIN (test code = HGB) 13.4 gram/dL 13.0-17.5 N HEMATOCRIT (test code = HCT) 41.0 % 42.0-52.0 L MEAN CELL VOLUME (test code = MCV) 93.8 fL 80-98 N MEAN CELL HGB (test code = MCH) 30.7 picogram 27.0-33.0 N MEAN CELL HGB CONCETRATION (test code = MCHC) 32.7 gram/dL 33.0-36. 0 L RED CELL DISTRIBUTION WIDTH (test code = RDW) 14.2 % 11.6-16. 2 N RED CELL DISTRIBUTION WIDTH SD (test code = RDW-SD) 49.2 fL 37 .0-51.0 N PLATELET COUNT (test code = PLT) 316 K/mm3 150-450 N MEAN PLATELET VOLUME (test code = MPV) 9.2 fL 6.7-11.0 N NEUTROPHIL % (test code = NT%) 53.5 % 39.0-69.0 N IMMATURE GRANULOCYTE % (test code = IG%) 0.8 % 0.0-5.0 N LYMPHOCYTE % (test code = LY%) 35.3 % 25.0-55.0 N MONOCYTE % (test code = MO%) 7.8 % 0.0-10.0 N EOSINOPHIL % (test code = EO%) 2.1 % 0.0-5.0 N BASOPHIL % (test code = BA%) 0.5 % 0.0-1.0 N NUCLEATED RBC % (test code = NRBC%) 0.0 % 0-0 N NEUTROPHIL # (test code = NT#) 4.13 K/mm3 1.8-7.7 N IMMATURE GRANULOCYTE # (test code = IG#) 0.06 x10 3/uL 0-0.03 H LYMPHOCYTE # (test code = LY#) 2.72 K/mm3 1.0-5.0 N MONOCYTE # (test code = MO#) 0.60 K/mm3 0-0.8 N EOSINOPHIL # (test code = EO#) 0.16 K/mm3 0.0-0.5 N BASOPHIL # (test code = BA#) 0.04 K/mm3 0.0-0.2 N NUCLEATED RBC # (test code = NRBC#) 0.00 K/mm3 0.0-0.1 N MANUAL DIFF REQUIRED (test code = MDIFF) NO Creatine Kinase [id number] 15:30:00* Test Item Value Reference Range Interpretation Comments Creatine Kinase MB (test code = 53174-0) 1.30 0-5.0 [facility] [id number] 15:30:00* Test Item Value Reference Range Interpretation Comments Troponin I (test code = BAD1204) 0.012 0-0.300 [facility] CenterCreatine [id number] 15:25:00* Test Item Value Reference Range Interpretation Comments Creatine Kinase (test code = 2157-6) 154 30-200 [facility] CenterMRI B[facility]IN [id number] 13:40:00 [facility] [address] [place] [address] Patient Name: GUSTAVO CARPENTER MR #: [id number] : 1980 Age/Sex: 37/M Req #: [id number] Adm Physician: Ordered by: BRITTANEY TALAVERA [employer]IRE TEMPERER Report #: [id number] Location: ER Room/Bed: Procedure: [id number] MR I/MRI BRAIN WO Exam Date: 05/03/18 Exam Time: 1230 REPORT STATUS: Signed Exam: Brain MRI without IV contrast History: Near syncope, dizziness Comparison studies: Head CT 11/11/2014. Brain MRI of 11/26/[address] of 11/24/2015 are phong vailable on the PACS for comparison at the time of dictation. Technique: Axial DWI, sagittal and axial T2 FLAIR, axial T1 FLAIR, axial T2, axial T2*GR E. Intravenous contrast: None Findings: Scalp and bone marrow: Surgi caroline changes of prior right frontal and prior right parietal haven holes presuma hans for prior subdural hematoma evacuation. Brain sulci: Appropriate for ag e. Ventricles: Normal in size. No hydrocephalus. Extra axial spaces: No mass , no fluid collection. Parenchyma: A couple of T2 FLAIR hyperintense in t he bilateral fronto-insular subcortical white matter and T2 FLAIR hyperintense focus in the anterior limb of the left internal capsule are nonspecific Small focal hemosiderin deposition in the right frontal periventricular white matter along the lateral margin of the splenium of the corpus callosum as sequ ruthy of nonspecific insult. Increased T2 signal and volume loss in the left hip pocampus which may reflect mesial temporal sclerosis. These findings were desc ribed on the prior MRI of 11/26/2015. The right hippocampus is normal in siz e and signal intensity. Small chronic microhemorrhage in the posterior righ t middle temporal lobe. Unchanged increased calcium deposition within the b ilateral globi pallidi which may be physiologic. Moreover, similar findings ca n be seen with metabolic abnormalities, especially abnormalities of calcium me tabolism. A 3 mm T2 hyperintensity in the right medial cerebellum without surr ounding T2 FLAIR hyperintensity may reflect incidental prominent perivascular space. Suprasellar region: No abnormalities. Craniocervical junction: Pat ent foramen magnum. No Chiari malformation. Vessels: Normal flow-voids in the arteries and sinuses. IMPRESSION: No acute intracranial abnormalities. Chronic findings: 1. Left mesial temporal sclerosis, unchanged. 2. Chronic right frontal and right posterior temporal small hemorrhagic foci. 3. Unchanged nonspecific globi pallidi calcifications as described. 4. Small fo ci of signal abnormality in the bilateral frontal-insular white matter and ant erior limb of the left internal capsule which are nonspecific but may reflect mild chronic microvascular ischemic changes or other nonspecific foci of glios is. Signed by: Dr. Baldemar Nicholson M.D. on 05/03/2018 3:30 PM Dictated By: BALDEMAR NICHOLSON MD 29 Transcribed By: ARCELIA on 05/03/180 COPY TO: BRITTANEY TALAVERA NP Thyroid Stimulating Hormone (TSH)2018-05-03 12:12:00* Test Item Value Reference Range Interpretation Comments Thyroid Stimulating Hormone (TSH) (test code = 08707-3) 0.471 0.350-4.940 [facility] CenterValproic Acid (Depakene) [id number] 12:12:00* Test Item Value Reference Range Interpretation Comments Valproic Acid (Depakene) Level (test code = 4086-5) 92 50 -100 [facility] [id number] 12:06:00* Test Item Value Reference Range Interpretation Comments Sodium Level (test code = 2951-2) 134 136-145 L [facility] CenterPotassium [id number] 12:06:00* Test Item Value Reference Range Interpretation Comments Potassium Level (test code = 2823-3) 4.1 3.5-5.1 [facility] CenterChloride [id number] 12:06:00* Test Item Value Reference Range Interpretation Comments Chloride Level (test code = 2075-0) 99 98-107 [facility] CenterCarbon Dioxide [id number] 12:06:00* Test Item Value Reference Range Interpretation Comments Carbon Dioxide Level (test code = 2028-9) 24 22-29 [facility] CenterAnion [id number] 12:06:00* Test Item Value Reference Range Interpretation Comments Anion Gap (test code = 67651-7) 15.1 8-16 [facility] CenterBlood Urea [id number] 12:06:00* Test Item Value Reference Range Interpretation Comments Blood Urea Nitrogen (test code = 3094-0) 15 7-26 [facility] CenterCreatinine2019-01-16 12:06:00* Test Item Value Reference Range Interpretation Comments Creatinine (test code = 2160-0) 0.91 0.72-1.25 [facility] CenterBUN/Creatinine [id number] 12:06:00* Test Item Value Reference Range Interpretation Comments BUN/Creatinine Ratio (test code = 3097-3) 16 6-25 [facility] CenterEstimat Glomerular Filtration Rate 2018-05-03 12:06:00* Test Item Value Reference Range Interpretation Comments Estimat Glomerular Filtration Rate (test code = 478332793) > 60 >60 Ranges were taken from the National Kidney Disease Education Program and the [facility] literature.Reference ranges:60 or greater: Xbosmo57-03 ( for 3 consecutive months): Chronic kidney disease 15 or less: Kidney failureCook Children's Medical CenterGlucose [id number] 12:06:00* Test Item Value Reference Range Interpretation Comments Glucose Level (test code = HTC1088) 291 74-118 H [facility] CenterCalcium [id number] 12:06:00* Test Item Value Reference Range Interpretation Comments Calcium Level (test code = 15313-5) 9.5 8.4-10.2 [facility] CenterTotal [id number] 12:06:00* Test Item Value Reference Range Interpretation Comments Total Bilirubin (test code = 1975-2) 0.3 0.2-1.2 [facility] CenterAspartate Amino Transf (AST/SGOT) 2018-05-03 12:06:00* Test Item Value Reference Range Interpretation Comments Aspartate Amino Transf (AST/SGOT) (test code = Aspartate Amino Transf (AST/SGOT)) 42 5-34 H [facility] CenterAlanine Aminotransferase (ALT/SGPT) 2018-05-03 12:06:00* Test Item Value Reference Range Interpretation Comments Alanine Aminotransferase (ALT/SGPT) (test code = 1742-6) 39 0-55 [facility] CenterTotal Iuvofyr8456-77-68 12:06:00* Test Item Value Reference Range Interpretation Comments Total Protein (test code = 2885-2) 6.7 6.5-8.1 [facility] CenterAlbumin2019-01-16 12:06:00* Test Item Value Reference Range Interpretation Comments Albumin (test code = 1751-7) 3.4 3.5-5.0 L [facility] CenterGlobulin2019-01-16 12:06:00* Test Item Value Reference Range Interpretation Comments Globulin (test code = 49189-9) 3.3 2.3-3.5 [facility] CenterAlbumin/Globulin Plygl9409-61-48 12:06:00 * Test Item Value Reference Range Interpretation Comments Albumin/Globulin Ratio (test code = 1759-0) 1.0 0.8-2.0 [facility] CenterAlkaline Mtcrxuiffkq4661-91-42 12:06:00* Test Item Value Reference Range Interpretation Comments Alkaline Phosphatase (test code = 6768-6) 47 40-150 [facility] CenterLipase2019-01-16 12:06:00* Test Item Value Reference Range Interpretation Comments Lipase (test code = 3040-3) 30 8-78 [facility] CenterCHEST SINGLE (PORTABLE)2018-05-03 12:04:00 [facility] [address] [address] Patient Name: GUSTAVO CARPENTER MR #: [id number] : 1980 Age/Sex: 37/M Req #: [id number] Adm Physician: Ordered by: BRITTANEY TALAVERA WIRE TEMPERER Report #: [id number] Location: ER Room/Bed: Procedure: [id number] DX /CHEST SINGLE (PORTABLE) Exam Date: 05/03/18 Exam Ti me: 1130 REPORT STATUS: Signed E XAMINATION: CHEST SINGLE (PORTABLE) INDICATION: Near syncope. Diz ziness. Weakness. COMPARISON: None FINDINGS: TUBES and LINES : None. LUNGS: Lungs are well inflated. Lungs are clear. There is no e vidence of pneumonia or pulmonary edema. PLEURA: No pleural effusion or pneumothorax. HEART AND MEDIASTINUM: The cardiomediastinal silhouette is u nremarkable. BONES AND SOFT TISSUES: No acute osseous lesion. Soft ti ssues are unremarkable. UPPER ABDOMEN: No free air under the diaphragm. IMPRESSION: No acute thoracic abnormality. Signed by: Dr. Col monisha Bermudez M.D. on 05/03/2018 12:05 PM Dictated By: ROD BERMUDEZ MD, MD El ectronically Signed By: ROD BERMUDEZ MD, MD on 05/03/18 1205 Transcribed By: MYRNA MCCARTHY on 05/03/18 1205 COPY TO: BRITTANEY TALAV[employer] Urine WBC 2018-05-03 11:53:00* Test Item Value Reference Range Interpretation Comments Urine WBC (test code = 5821-4) NONE 0-5 [facility] PLQ4256-26-63 11:53:00* Test Item Value Reference Range Interpretation Comments Urine RBC (test code = 71651-7) NONE 0-5 [facility] Jzupgmua5052-72-86 11:53:00* Test Item Value Reference Range Interpretation Comments Urine Bacteria (test code = 08043-5) NONE NONE [facility] Epithelial Nqxgq6503-74-95 11:53:00 * Test Item Value Reference Range Interpretation Comments Urine Epithelial Cells (test code = 54821-2) FEW NONE [facility] CenterInfluenza Virus Types A,B Antigen 2018-05-03 11:49:00* Test Item Value Reference Range Interpretation Comments Influenza Virus Types A,B Antigen (test code = 03678-6) NEGATIVE NEGATIVE [facility] Aazym3794-18-02 11:44:00* Test Item Value Reference Range Interpretation Comments Urine Color (test code = 5778-6) YELLOW YELLOW [facility] Wkrcoql0986-36-87 11:44:00* Test Item Value Reference Range Interpretation Comments Urine Clarity (test code = 24933-9) SL CLOUDY CLEAR H [facility] Center[facility] Specific Yuzcdtg9192-90-37 11:44:00 * Test Item Value Reference Range Interpretation Comments Urine Specific [place] (test code = 5811-5) 1.020 1.010-1.02 5 [facility] iR7168-56-13 11:44:00* Test Item Value Reference Range Interpretation Comments Urine pH (test code = 34168-7) 6 5-7 [facility] Leukocyte Rsndvzst6175-99-72 11:44:00* Test Item Value Reference Range Interpretation Comments Urine Leukocyte Esterase (test code = 5799-2) NEGATIVE NEGATIVE [facility] Pbuentb5250-91-18 11:44:00* Test Item Value Reference Range Interpretation Comments Urine Nitrite (test code = 28188-9) NEGATIVE NEGATIVE [facility] Byzkfsx6891-04-91 11:44:00* Test Item Value Reference Range Interpretation Comments Urine Protein (test code = 5804-0) NEGATIVE NEGATIVE [facility] Glucose (UA)2018-05-03 11:44:00* Test Item Value Reference Range Interpretation Comments Urine Glucose (UA) (test code = 2349-9) 3+ NEGATIVE H [facility] Noyubkg7592-68-44 11:44:00* Test Item Value Reference Range Interpretation Comments Urine Ketones (test code = 82281-9) TRACE NEGATIVE H [facility] Rurnpfojntnw7669-19-98 11:44:00* Test Item Value Reference Range Interpretation Comments Urine Urobilinogen (test code = 75415-5) 0.2 0.2-1 [facility] Otebixhaw8313-98-90 11:44:00* Test Item Value Reference Range Interpretation Comments Urine Bilirubin (test code = 1978-6) NEGATIVE NEGATIVE [facility] Bnttn5553-79-28 11:44:00* Test Item Value Reference Range Interpretation Comments Urine Blood (test code = 55554-0) NEGATIVE NEGATIVE [facility] Opiates Lvklhu7235-07-09 11:43:00* Test Item Value Reference Range Interpretation Comments Urine Opiates Screen (test code = 90539-3) NEGATIVE NEGATIVE ALL TESTS PERFORMED MANUALLY ON [employer] TOX/SEE TESTCook Children's Medical CenterUrine Barbiturates Xhqczb9006-06-52 11:43:00* Test Item Value Reference Range Interpretation Comments Urine Barbiturates Screen (test code = 223372222) NEGATIVE NEGA TIVE [facility] Phencyclidine Zxgqpq7025-19-10 11:43:00* Test Item Value Reference Range Interpretation Comments Urine Phencyclidine Screen (test code = 39218-7) NEGATIVE NEGAT VIV [facility] Center[facility] Amphetamines Mknymn3454-86-05 11:43:00* Test Item Value Reference Range Interpretation Comments Urine Amphetamines Screen (test code = 14593-4) NEGATIVE NEGATI VE [facility] CenterU[facility] Methamphetamines Igbcdm8305-78-63 11:43:00* Test Item Value Reference Range Interpretation Comments Urine Methamphetamines Screen (test code = Urine Metha mphetamines Screen) NEGATIVE NEGATIVE [facility] Center[facility] Benzodiazepines Smnvyx4505-89-09 11:43:00* Test Item Value Reference Range Interpretation Comments Urine Benzodiazepines Screen (test code = 15211-6) NEGATIVE NEG ATIVE [facility] Center[facility] Cocaine Gdnxgv4415-39-98 11:43:00* Test Item Value Reference Range Interpretation Comments Urine Cocaine Screen (test code = 3398-5) NEGATIVE NEGATIVE [facility] CenterU[facility] Cannabinoids Locrlt2449-43-34 11:43:00* Test Item Value Reference Range Interpretation Comments Urine Cannabinoids Screen (test code = 15237-7) NEGATIVE NEGATI VE THESE RESULTS ARE FOR MEDICAL TREATMENT ONLYTHIS REPORT CONTAINS UNCONFIR MED SCREENING RESULTS*POSITIVE RESULTS WILL BE CONFIRMED BY REFERENCE LAB UPON R EQUEST CUT-OFFDRUG CLASS CONCENTRATION ng/mLAmphetamines 1000Methamphetamines 1000Cocaine 300Opiate 300Phencyc lidine 25Cannabinoid 50Barbiturates 300Benzodiazepine 300Methadone 300[facility] CenterUrine Methadone Nhogad8226-34-49 11:43:00* Test Item Value Reference Range Interpretation Comments Urine Methadone Screen (test code = 16817-3) NEGATIVE NEGATIVE THESE RESULTS ARE FOR MEDICAL TREATMENT ONLYTHIS REPORT CONTAINS UNCONFIR MED SCREENING RESULTS*POSITIVE RESULTS WILL BE CONFIRMED BY REFERENCE LAB UPON R EQUEST CUT-OFFDRUG CLASS CONCENTRATION ng/mLAmphetamines 1000Methamphetamines 1000Cocaine Metabolite 300Opiate 300Phencyc lidine 25Cannabinoid 50Barbiturates 300Benzodiazepine 300Methadone 300[facility] Xrlgq2880-87-04 11:39:00* Test Item Value Reference Range Interpretation Comments White Blood Count (test code = 6690-2) 6.35 4.8-10.8 [facility] CenterRed Blood Avusa1193-32-48 11:39:00* Test Item Value Reference Range Interpretation Comments Red Blood Count (test code = 789-8) 4.12 4.3-5.7 L [facility] CenterHemoglobin2019-01-16 11:39:00* Test Item Value Reference Range Interpretation Comments Hemoglobin (test code = 30369-7) 12.8 14.0-18.0 L [facility] CenterHematocrit2019-01-16 11:39:00* Test Item Value Reference Range Interpretation Comments Hematocrit (test code = 4544-3) 37.1 38.2-49.6 L [facility] CenterMean Corpuscular Mqogij0861-39-05 11:39:00* Test Item Value Reference Range Interpretation Comments Mean Corpuscular Volume (test code = 787-2) 90.0 81-99 [facility] CenterMean Corpuscular Wphytmrlcu0395-98-29 11:39:00* Test Item Value Reference Range Interpretation Comments Mean Corpuscular Hemoglobin (test code = 785-6) 31.1 28-32 [facility] CenterMean Corpuscular Hemoglobin Concent 2018-05-03 11:39:00* Test Item Value Reference Range Interpretation Comments Mean Corpuscular Hemoglobin Concent (test code = 786-4) 34.5 31-35 [facility] CenterRed Cell Distribution Zkuyy0043-90-97 11:39:00* Test Item Value Reference Range Interpretation Comments Red Cell Distribution Width (test code = 48535-6) 14.1 11.7 -14.4 [facility] CenterPlatelet Oodgu2233-36-68 11:39:00* Test Item Value Reference Range Interpretation Comments Platelet Count (test code = 777-3) 314 140-360 [facility] CenterNeutrophils (%) (Auto)2018-05-03 11:39:00 * Test Item Value Reference Range Interpretation Comments Neutrophils (%) (Auto) (test code = 58598-8) 59.3 38.7-80.0 [facility] CenterLymphocytes (%) (Auto)2018-05-03 11:39:00 * Test Item Value Reference Range Interpretation Comments Lymphocytes (%) (Auto) (test code = 736-9) 28.7 18.0-39.1 [facility] CenterMonocytes (%) (Auto)2018-05-03 11:39:00* Test Item Value Reference Range Interpretation Comments Monocytes (%) (Auto) (test code = 5905-5) 8.8 4.4-11.3 [facility] CenterEosinophils (%) (Auto)2018-05-03 11:39:00 * Test Item Value Reference Range Interpretation Comments Eosinophils (%) (Auto) (test code = 713-8) 1.9 0.0-6.0 [facility] CenterBasophils (%) (Auto)2018-05-03 11:39:00* Test Item Value Reference Range Interpretation Comments Basophils (%) (Auto) (test code = 706-2) 0.5 0.0-1.0 [facility] CenterIM GRANULOCYTES %2018-05-03 11:39:00* Test Item Value Reference Range Interpretation Comments IM GRANULOCYTES % (test code = IM GRANULOCYTES %) 0.8 0.0- 1.0 [facility] CenterNeutrophils # (Auto)2018-05-03 11:39:00* Test Item Value Reference Range Interpretation Comments Neutrophils # (Auto) (test code = 751-8) 3.8 2.1-6.9 [facility] CenterLymphocytes # (Auto)2018-05-03 11:39:00* Test Item Value Reference Range Interpretation Comments Lymphocytes # (Auto) (test code = 51046-3) 1.8 1.0-3.2 [facility] CenterMonocytes # (Auto)2018-05-03 11:39:00* Test Item Value Reference Range Interpretation Comments Monocytes # (Auto) (test code = 742-7) 0.6 0.2-0.8 [facility] CenterEosinophils # (Auto)2018-05-03 11:39:00* Test Item Value Reference Range Interpretation Comments Eosinophils # (Auto) (test code = 711-2) 0.1 0.0-0.4 [facility] CenterBasophils # (Auto)2018-05-03 11:39:00* Test Item Value Reference Range Interpretation Comments Basophils # (Auto) (test code = 704-7) 0.0 0.0-0.1 [facility] CenterAbsolute Immature Granulocyte (auto 2018-05-03 11:39:00* Test Item Value Reference Range Interpretation Comments Absolute Immature Granulocyte (auto (melissa t code = Absolute Immature Granulocyte (auto) 0.05 0-0.1 [facility] CenterBedside Evnlnrs1442-64-45 11:21:00* Test Item Value Reference Range Interpretation Comments Bedside Glucose (test code = 82538-2) 304 70-120 H Meter ID: [id number] Children's Medical CenterHEMATOLOGY2019-01-15 17:33:00* Test Item Value Reference Range Interpretation Comments PTT (test code = PTT) 32.0 s 22.9-35.8 [facility]gjvdihDXFNLIVRQK0276-47-31 17:33:00* Test Item Value Reference Range Interpretation Comments PT (test code = PT) 13.5 s 12.0-14.7 [facility]EktvsceJDNBZCGRZY4735-16-05 17:33:00* Test Item Value Reference Range Interpretation Comments INR (test code = INR) 1.05 1 0.85-1.17 [facility]XdeoggnNVXEMBEYVY5391-47-84 17:33:008.0[facility]annHEMATOLOGY 2018-05-02 17:33:86261Zmcurqjt MppzfyqUOUHOCWJRY1287-30-80 17:33:007.6[facility] PikjdqySEICKUTAEO8475-37-73 17:33:0037.4[facility] KldvotkZNMFSSQXLJ3126-15-82 17:33:004.12[facility] TfhbvtsGAJVKPPIEG2560-29-51 17:33:0013.2[facility] RELEFKCLXZ8247-70-89 17:33:00* Test Item Value Reference Range Interpretation Comments MCH (test code = MCH) 32.0 pg 27.0-31.0 [facility] XoxklwcLJOIWJOTGA3341-52-93 17:33:0090.8[facility]annHEMATOLOGY 2018-05-02 17:33:0015.2[facility] DyocsduZZEVLUTILR5750-10-18 17:33:0035.2[facility] BzrhgtfUDQWVBWJVV7586-58-76 17:33:002.3[facility] IpjmvsqIRPBBEKZBS5764-15-09 17:33:008.2[facility] GjsvdpkBXQQLODIWT9827-39-85 17:33:001.8[facility] [place] JRBTQVRWEV6886-37-67 17:33:000.7[facility] RoqjkimIESUPEOTCT0258-16-03 17:33:002.0 [facility] ByzekyhSYWYTNGGQX8971-73-33 17:33:005.0[facility]annHEMATOLOGY 2018-05-02 17:33:0025.3[facility] RskxctkUMPBPHWOYV1154-74-78 17:33:0062.4[facility] DsopxfnTALQWJLDDD4228-22-78 17:33:000.2[facility] ZqpnlhtCGZFBKNKFA9449-77-15 17:33:000.1[facility] HermannCARDIAC KHBHSZA8438-62-69 16:48:00<0.02[facility] HermannCARDIAC LLBCCLP6601-55-82 16:48:0020[facility]annCHEM UBTNO9387-76-70 16:48:20498Idlhwsyt HermannCHEM IGNPK4289-21-39 16:48:0016[facility] HermannCHEM JRSZW6013-59-63 16:48:82135Jwskmhjy HermannCHEM VORLE5601-49-43 16:48:008.3 [facility]annCHEM OBAMI4496-73-55 16:48:003.9[facility]annCHEM PANEL 2018-05-02 16:48:0058[facility] HermannCHEM KETSH3521-27-66 16:48:000.95[facility]annCHEM MZTAH1250-57-45 16:48:63446Ftdsyoau HermannCHEM CMZDX0363-90-03 16:48:004.6[facility]annCHEM JQQAI8687-96-05 16:48:35551Tgzjjgeu HermannCHEM UFAXJ7890-39-18 16:48:009.3[facility]annCHEM MFRAV9202-19-68 16:48:0029 [facility]annCHEM BMOGJ4757-32-30 16:48:0072[facility]annCHEM PANEL 2018-05-02 16:48:0070[facility] HermannCHEM WIVMO2592-21-70 16:48:000.4[facility]annCHEM KEGCF8863-27-02 16:48:00* Test Item Value Reference Range Interpretation Comments A/G Ratio (test code = A/G Ratio) 0.9 1 0.7-1.6 [facility]annCHEM EFDKT6851-27-00 16:48:0012.6[facility]annCHEM PANEL 2018-05-02 16:48:00* Test Item Value Reference Range Interpretation Comments B/C Ratio (test code = B/C Ratio) 17 1 6-25 [facility]annCHEM OYALO3731-41-19 16:48:004.4[facility]annURINE AND STOOL 2018-05-02 16:47:0015 *ABN*(05/02/18 10:47 AM)[facility] ST[facility]OL 2018-05-02 16:47:00None Seen (05/02/18 10:47 AM)[facility] 2018-05-02 16:47:00None Seen (05/02/18 10:47 AM)[facility] 2018-05-02 16:47:00Negative (05/02/18 10:47 AM)[facility] ST[facility] 2018-05-02 16:47:00Negative (05/02/18 10:47 AM)[facility] STOOL 2018-05-02 16:47:000.2[facility]UR[facility] AND CNQDJ9166-55-97 16:47:00Negative (05/02/18 10:47 AM)[facility] MICDB3002-02-57 16:47:00Negative *NA*(05/02/18 10:47 AM)[facility] ERKAC4634-73-62 16:47:00Negative (05/02/18 10:47 AM)[facility] ZJPVD0643-98-48 16:47:00* Test Item Value Reference Range Interpretation Comments UA pH (test code = UA pH) 5.5 1 5.0-8.0 [facility] IRZVF9398-01-86 16:47:00* Test Item Value Reference Range Interpretation Comments UA Spec Grav (test code = UA Spec Grav) 1.020 1 [facility] YEPVZ1748-24-40 16:47:00Clear (05/02/18 10:47 AM) [facility] DEMFT4892-99-65 16:47:00Yellow *NA*(05/02/18 10:47 AM) [facility] KSCCQ5703-85-21 12:22:00Performed (07/07/15 7:22 AM) [facility] NWFLA9439-63-41 12:22:00Negative (07/07/15 7:22 AM) [facility] ZVYVV3952-83-78 12:22:00* Test Item Value Reference Range Interpretation Comments UA pH (test code = UA pH) 7.5 1 5.0-8.0 [facility] JBQGR5007-59-95 12:22:00* Test Item Value Reference Range Interpretation Comments UA Spec Grav (test code = UA Spec Grav) 1.015 1 [facility] NEJNN0660-24-74 12:22:00Yellow *NA*(07/07/15 7:22 AM) [facility] XWAVF2668-98-57 12:22:00Clear (07/07/15 7:22 AM) [facility] PQVXJ5396-75-03 12:22:00Negative (07/07/15 7:22 AM) [facility] RWBEM3874-32-63 12:22:00Negative (07/07/15 7:22 AM) [facility] BKJNE6006-74-88 12:22:000.2[facility] ERJWV0588-66-64 12:22:00Negative *NA*(07/07/15 7:22 AM)[facility]annCHEM PANEL 2015-07-07 11:54:000.9[facility]annCHEM WXZXJ9739-99-10 11:54:0090[facility]annCHEM CZFWO9187-58-06 11:54:004.0[facility]annCHEM LRCAL3618-60-16 11:54:0089[facility]annCHEM APMDQ8367-30-88 11:54:0062[facility]annCHEM NWCOC1131-04-31 11:54:007.7[facility]annCHEM UYZZB4949-17-05 11:54:003.7 [facility]annCHEM HZGEJ8449-10-33 11:54:000.2[facility]annCHEM PANEL 2015-07-07 11:54:000.3[facility]annCHEM BHAKH8156-70-54 11:54:000.1[facility]annCHEM FBGPU0829-41-66 11:54:16709Bhybjgav HermannCHEM IIGOK2849-45-41 11:54:006[facility]annCHEM KRVKL9203-19-52 11:54:000.63[facility]annCHEM FURXX7669-98-65 11:54:35154Wmbjivhe HermannCHEM HURCT9993-63-00 11:54:51418 [facility]annCHEM KCXVQ0855-59-27 11:54:003.9[facility]annCHEM PANEL 2015-07-07 11:54:008.9[facility] HermannCHEM LSUNL6603-88-94 11:54:0096[facility]annCHEM MQPME8696-17-51 11:54:0030[facility]annCHEM ZQINZ1051-29-85 11:54:009.9[facility]annCHEM CGBQJ5577-21-25 11:54:07914Vjkmoltt [place] EYZXAHTSZJ5394-41-79 11:54:006.8[facility] KlizqybEACYSJEPUU4118-19-32 11:54:00 12.7[facility] PrricibKRXGLMRFYD7569-57-69 11:54:00* Test Item Value Reference Range Interpretation Comments MCH (test code = MCH) 31.4 pg 27.0-31.0 [facility] XlzjgmxDFBQKOYPRE3431-57-40 11:54:0038.4[facility]annHEMATOLOGY 2015-07-07 11:54:004.04[facility] EddmactBZDOTFXTGR5726-54-45 11:54:0095.0[facility] IcxtyreMKORSUYXAN2311-60-38 11:54:007.0[facility] PusveyzXUNUICJNTB6248-85-02 11:54:65710Svggkpfe NgrefbuLXMGTWFUXP5949-43-21 11:54:0014.1[facility] IDLXATIBCV6265-28-39 11:54:0033.1[facility] FwkfhxfQDSIBCHGCE2475-30-62 11:54:00 9.5[facility] BveydcmQEYJUOIDPQ2230-35-79 11:54:0041.7[facility]annHEMATOLOGY 2015-07-07 11:54:002.8[facility] QqsfaabLXWTGMDVFV1197-87-15 11:54:003.1[facility] MruudfcGUMSQBOZOE1061-48-55 11:54:0044.4[facility] JkorkryRTHNRCQOGW0672-40-75 11:54:000.1[facility] ZlkqzozCQGTVMLQBE2486-86-34 11:54:000.2[facility] GVFBUCSIIL8892-04-07 11:54:001.3[facility] AyworjaSBQLWQKORR6265-49-90 11:54:000.6 [facility] AkmrpzgBHECAGAWAK6339-37-96 11:54:003.0[facility] HermannDRUG SCREEN 2015-01-17 04:05:00See Note *NA*(01/16/15 11:05 PM)[facility]annDRUG SCREEN 2015-01-17 04:05:00Negative *NA*(01/16/15 11:05 PM)[facility]annDRUG SCREEN 2015-01-17 04:05:00Negative *NA*(01/16/15 11:05 PM)[facility]annDRUG SCREEN 2015-01-17 04:05:00Negative *NA*(01/16/15 11:05 PM)[facility]annDRUG SCREEN 2015-01-17 04:05:00Negative *NA*(01/16/15 11:05 PM)[facility]annDRUG SCREEN 2015-01-17 04:05:00Negative *NA*(01/16/15 11:05 PM)[facility]annDRUG SCREEN 2015-01-17 04:05:00Negative *NA*(01/16/15 11:05 PM)[facility]annDRUG SCREEN 2015-01-17 04:05:00Negative *NA*(01/16/15 11:05 PM)[facility] HermannELECTROLYTES 2015-01-17 03:36:0015.7[facility] XbcmtarUQPXCSHMUIEN9173-57-36 03:36:0013[facility] VarflkrOAGQKOFXPKGA5248-14-27 03:36:004.5[facility] FefbsqrTEWRNIGEXMRF4400-41-16 03:36:000.8[facility] JjtxurrIXQKZASSFSIG3171-13-45 03:36:72088Hhcmfftm [place] RIGTKDKRJLGZ3210-33-98 03:36:0090[facility] FppgfkvEQXZPKNXXCPB4742-08-19 03:36:00 9.0[facility] LlwlnimNTFXIUJDJNQK5177-45-28 03:36:004.7[facility] WGOPXAXHSNKD6026-56-88 03:36:009[facility] BkictwxOYGWLFTPLCWV3068-39-44 03:36:00 26[facility] OkaaewrBUZPOQXPGIOK8182-66-76 03:36:05443Rqtaqicd HermannELECTROLYTES 2015-01-17 03:36:000.7[facility] OlxwwucAIBGLUOLPDKE2066-33-23 03:36:0093[facility] DeeqcwiPJSIAGWTSRXN3477-35-37 03:36:0062[facility] LtesuikMDVPVLARFPBN5286-33-27 03:36:0076[facility] YnximfkOZVHSEBKVGGV5984-03-22 03:36:000.4[facility] [place] XQGDIQXPKOQB4616-81-57 03:36:0066[facility] OdodflaZMAPILHWMLHJ6171-96-81 03:36:00 8.3[facility] LaorigvITRWWJZYLROP8085-83-94 03:36:003.8[facility] HermannHEMATOLOGY 2015-01-17 03:36:000.1[facility] NwlroxeTXJIIPHTSO0922-27-03 03:36:000.2[facility] XvgsesiHTQSEWIMWD3337-97-23 03:36:000.8[facility] BfvhuhdEWYGVEPWEZ2387-35-49 03:36:0033.4[facility] DzevoniBQCKKLDXYM5915-62-55 03:36:0054.2[facility] FRZBEVLKZS7258-62-00 03:36:004.7[facility] LuvqpqpVHENXEZQTH7135-83-75 03:36:002.9 [facility] FqhreieDDNCKUNMVQ9228-12-85 03:36:001.9[facility]annHEMATOLOGY 2015-01-17 03:36:001.0[facility] YnbradcYMTYQOKJKB2331-14-94 03:36:009.5[facility] VovxtfdUFOHUSCQCE7875-65-28 03:36:004.22[facility] MhcoxesDDJSDCBYIL2190-45-59 03:36:008.7[facility] XstrfpxVOTZVAPJFO0805-32-41 03:36:0038.7[facility] [place] MEMKUUXLVP1726-67-83 03:36:0013.2[facility] CnfrtacDUZNNRASUW5490-04-29 03:36:00 34.0[facility] WqsxomySPOYMKRIFN5106-12-83 03:36:0091.7[facility]annHEMATOLOGY 2015-01-17 03:36:00* Test Item Value Reference Range Interpretation Comments MCH (test code = MCH) 31.2 pg 27.0-31.0 [facility] UwnsijfRPGXFIMMKN1173-11-15 03:36:0013.2[facility]annHEMATOLOGY 2015-01-17 03:36:59819Suqimpnp RplooheOBKEEZTOWJ4541-94-82 03:36:007.1[facility] KtaeqrxNHNUGKZRPH9749-34-87 03:36:000.6[facility] PxpajtlWUEAHPWJMU8733-53-72 03:36:00<2 (01/16/15 10:36 PM)[facility] NfctsqkNPAPTGNGEY9593-05-81 03:36:00<0.003 [facility] FsdqcuvJTBDCFZTAU8612-89-81 03:36:00<3[facility] HermannTOXICOLOGY 2015-01-17 03:36:001.6[facility] HermannBLOOD BANK HAHPBYH9969-55-57 03:36:00 Negative (11/22/14 10:36 PM)[facility] HermannCHEM WREBO6101-45-11 03:17:000.05 [facility]annCHEM TBJWI1366-67-16 03:17:89809Govpkeid HermannCHEM PANEL 2014-11-23 03:17:005.0[facility] HermannCHEM BYWOK4662-99-37 03:17:09484Qfnpyfzb HermannCHEM OSPIL9022-36-45 03:17:84785Xdfkjzll HermannCHEM JOPCW4655-89-69 03:17:008.0[facility] HermannCHEM YTCKO2014-04-31 03:17:009.3[facility] HermannCHEM CMDHG0316-18-09 03:17:003.4[facility] HermannCHEM JBTBS7155-94-37 03:17:0078 [facility]annCHEM FPXTT1468-11-80 03:17:0029[facility] HermannCHEM PANEL 2014-11-23 03:17:004.6[facility] HermannCHEM WWPKK5670-92-29 03:17:000.7[facility] HermannCHEM CAMGW0597-49-19 03:17:0011[facility] HermannCHEM VIBHR8402-97-08 03:17:0010.0[facility] HermannCHEM MVOOE3892-83-81 03:17:89865Pbuyjhqc HermannCHEM JZIFY9013-01-84 03:17:0073[facility] HermannCHEM OMNAX1056-60-01 03:17:000.4 [facility]annCHEM YINVK2969-95-71 03:17:000.8[facility] HermannCHEM PANEL 2014-11-23 03:17:009[facility] HermannCHEM UMWPN3908-83-15 03:17:0082[facility] FrubzvzNSNIITSQHJ6388-25-71 03:17:0054[facility] JykslszKFENITCSNG0320-81-44 03:17:006.6[facility] EpbsbaeZRGWIRBFNY8919-93-81 03:17:0013.1[facility] XGPOGUYCEU4506-12-16 03:17:55280Uigkhrhq XwmrkccWUXMMOLLIU8350-10-69 03:17:00 95.9[facility] QfetuewDITHVVQOZG1729-65-69 03:17:0033.4[facility]annHEMATOLOGY 2014-11-23 03:17:00* Test Item Value Reference Range Interpretation Comments MCH (test code = MCH) 32.1 pg 27.0-31.0 [facility] HwmoakbDLJSBCKBQB8077-60-39 03:17:0037.4[facility]annHEMATOLOGY 2014-11-23 03:17:0012.5[facility] YyjhooaSDCRSIHIYK4051-23-31 03:17:003.90[facility] ZpvtcqjEMMFYRNGER5882-46-11 03:17:009.6[facility] YmttdciFZEKIMSXXU4489-45-69 03:17:000.3[facility] QccrwioOJWQGJVMHA2031-38-10 03:17:000.1[facility] [place] KNNRSIJDZL2484-80-32 03:17:003.0[facility] LhtndcwCLGOFSMJYB2865-25-77 03:17:001.1 [facility] ZyabjknBMHENOVNRX2060-05-20 03:17:005.2[facility]annHEMATOLOGY 2014-11-23 03:17:001.0[facility] TyghdhxGLXOXLZBKC6258-48-54 03:17:0011.3[facility] JopgoqfCSAYWYFVUB4949-68-08 03:17:0030.8[facility] IddoqiuBFQNBHNBWY3004-50-13 03:17:003.2[facility] DldkyddIDRXOICWWB6938-35-92 03:17:0053.7[facility] [place] TGQHGNURFC4875-89-43 03:17:003.1[facility] BrvtzhbHGGQQPBAEE4469-39-82 21:52:00 10.8[facility] TsrjtbsPSLJGYTZNH3996-18-12 21:52:005.7[facility]annHEMATOLOGY 2014-11-22 21:52:00* Test Item Value Reference Range Interpretation Comments Max Amp (test code = Max Amp) 68 mm 52-71 [facility]pfqbgeRBOODCVTTW9553-82-74 21:52:00* Test Item Value Reference Range Interpretation Comments K-time (test code = K-time) 0.8 min 0.6-2.3 [facility] HospitalGwgoskrLWIZUDVOKX0822-97-50 21:52:00* Test Item Value Reference Range Interpretation Comments Angle (test code = Angle) 81 degrees 64-80 [facility] HospitalMfrfrflVBKTUVSRIS0783-48-80 21:52:00* Test Item Value Reference Range Interpretation Comments R-time (test code = R-time) 0.6 min 0.4-0.7 [facility] HospitalAgvltbcUBUKEECHDB9029-81-61 21:52:00* Test Item Value Reference Range Interpretation Comments Split Point (test code = Split Point) 0.5 min [facility] HospitalEctszevSSQNNEPXRH9546-19-93 21:52:00Citrated Whole Blood (11/22/14 4:52 PM)[facility]mYZUWWCDUIN0237-43-36 21:52:00* Test Item Value Reference Range Interpretation Comments ACT (TEG) (test code = ACT (TEG)) 105 s 86-118 [facility] HospitalJjobngoBUYPGYXKDJ9841-51-54 21:52:00* Test Item Value Reference Range Interpretation Comments PT (test code = PT) 13.2 s 12.0-14.7 [facility] HospitalFovagkpQNFXNBGBDX6528-87-15 21:52:001.00[facility]annHEMATOLOGY 2014-11-22 21:52:00* Test Item Value Reference Range Interpretation Comments PTT (test code = PTT) 34.9 s 22.9-35.8 [facility] HospitalUlytneiJNNSWVTHJMMH7823-96-70 17:04:08896Otfqizjn HermannCHEM PANEL 2014-11-13 06:07:002.1[facility] HermannCHEM FZKOE6391-52-72 06:07:003.4[facility] EnsfovmNJWKORPYLHWD7556-66-75 06:07:0013.3[facility] DklbwinLLPXTBUQMSNC8390-22-97 06:07:35287Qygsybpk IgzzmetOQJPBZVIRHJK2170-89-62 06:07:008.3[facility] TERCJVSTLWTG2305-66-86 06:07:0027[facility] DauagrrUPRPAKICFVEV1510-57-46 06:07:00 99[facility] SyopgiiJPPBMEDRMNPU2959-12-90 06:07:0014[facility] HermannELECTROLYTES 2014-11-13 06:07:71173Qoluwcub MvvnuonFRKVPAEMEPCW8542-09-20 06:07:004.3[facility] JzcwgnmLHFJJTNSTFUP5086-20-77 06:07:0093[facility] RubenbeOLYXKEWNXCLH4361-66-07 06:07:000.8[facility] JpstlnoPTAPGJCJRN7975-14-60 06:07:009.4[facility] AIWAONUITF9214-96-93 06:07:004.03[facility] AifjdtwCXNPSROCWI3219-09-27 06:07:00 13.3[facility] LmdswnaJLPTTPDMGO9134-61-19 06:07:43813Mmcjrdjb HermannHEMATOLOGY 2014-11-13 06:07:0012.9[facility] RdznlqoIQDIIFRJPT7601-74-47 06:07:0034.0[facility] VkobhdzIRYPMBLKPI1861-35-83 06:07:0039.2[facility] LkubrjjWCLDAVDUOE8457-80-36 06:07:00* Test Item Value Reference Range Interpretation Comments MCH (test code = MCH) 33.0 pg 27.0-31.0 [facility] DcknnltPGWFRIKOLM2791-20-83 06:07:0097.2[facility] HermannHEMATOLOGY 2014-11-13 06:07:006.9[facility] OtbjfrxMOYQLNOUIZ4394-14-77 06:07:000.1[facility] GihgkatDWZHEHPTVH4606-28-88 06:07:000.1[facility] MtwidgiQLEAXQULIS0992-02-82 06:07:006.4[facility] LguiomtETKHHKHUEU6072-62-62 06:07:001.6[facility] [place] DKDZWGACHK5776-16-55 06:07:001.2[facility] AojvaitEZHYDGTAAG3942-60-34 06:07:00 67.7[facility] DuakcwfZGBSJNZMLL2771-10-19 06:07:0017.2[facility] HermannHEMATOLOGY 2014-11-13 06:07:000.7[facility] MrguqvwVVQRDXZVAF6516-56-29 06:07:0013.1[facility] EmuwspyHWZBSKFAHM5383-81-47 06:07:001.3[facility] HermannCHEM EJRBQ9279-96-45 06:48:69349Aktsazgi HermannCHEM DXBOW9778-37-92 06:48:003.6[facility] HermannCHEM IVYUS5439-94-09 06:48:001.6[facility] VlnflkaNLZXSYXSHRON6512-64-54 06:48:28257 [facility] YyxtirkXTNZRMPHVZ1123-41-56 06:48:001.07[facility]annHEMATOLOGY 2014-11-12 06:48:00* Test Item Value Reference Range Interpretation Comments PT (test code = PT) 13.9 s 12.0-14.7 [facility] PxltpkgLXNALSNESF8854-62-88 06:48:0054[facility]annURINE CHEM 2014-11-12 06:48:33848Hjiitdpo HermannURINE MTXW0760-34-55 06:48:08215Noxigmyf HermannBACTERIAL - BBENPEFH5601-61-58 05:50:00Negative (11/12/14 12:50 AM) [facility] CtlkxxyYIUHJNEAXFLS5107-37-91 05:50:004.1[facility] HermannELECTROLYTES 2014-11-12 05:50:0096[facility] ApzkuqjORUYGQJMJSGA3960-14-88 05:50:73865Aadhnqqm UcekaloXHMMZVRDJCFX9240-50-52 05:50:000.8[facility] XozuvtyQHRFYYSUMECC3339-58-79 05:50:0012[facility] RdyfpyyCYMAELRPBNQK1280-68-90 05:50:0012.1[facility] [place] VTXFPSWMQAKV1381-12-19 05:50:008.5[facility] YzouyneKRHNKGSPOILV7981-41-90 05:50:0024[facility] OogelndSMZLIFUIMUVZ4677-65-13 05:50:0094[facility] QXTPBJRNXE5554-17-91 05:50:0077.4[facility] DljzxwcKZMFRHXKDV5984-99-09 05:50:00 1.0[facility] SubkoviMPLWBDBHUG3175-51-88 05:50:001.0[facility] HermannHEMATOLOGY 2014-11-12 05:50:000.4[facility] HveudduUFXNCXCTIJ7198-30-27 05:50:0010.7[facility] BhsdlsfEIIKAPOZZU8492-76-30 05:50:007.1[facility] MtidnesUAZPDCLVQN1810-26-48 05:50:000.4[facility] HhdvsnkGRAIARETYJ8363-53-49 05:50:0011.1[facility] AVTMABCSGY0020-65-46 05:50:00* Test Item Value Reference Range Interpretation Comments PTT (test code = PTT) 36.0 s 22.9-35.8 [facility] PgoingeYYBLSMIIOM9965-85-76 05:50:0013.2[facility] HermannHEMATOLOGY 2014-11-12 05:50:003.96[facility] HokvjggPZMKBRNSRH3843-42-82 05:50:009.2[facility] CeoqyovEXVYSRTMHS2977-09-23 05:50:006.9[facility] GfkxyhmSKBLSAIJQR7180-40-87 05:50:35429Hsyiuyzt UmicdkoAKHLKLITHB3765-79-70 05:50:0013.1[facility] [place] DNKORJRIJU2162-15-97 05:50:0035.4[facility] LidhhhvEDMBEKHEHB9596-52-29 05:50:00 94.6[facility] MwnhmksJBJSCHQAVI4817-28-15 05:50:0037.5[facility] HermannHEMATOLOGY 2014-11-12 05:50:00* Test Item Value Reference Range Interpretation Comments MCH (test code = MCH) 33.4 pg 27.0-31.0 [facility] HermannPARATHYROID KMPZGBG2838-42-11 05:50:001.16[facility] PARATHYROID XOUYPLM6397-08-54 05:50:001.19[facility] HermannCHEM EYUFV7250-21-76 23:25:22015Uwcepykl HermannCHEM IGJUA0378-83-63 23:25:87781Ipagvtqx HermannCHEM HGWRX6274-96-41 23:25:0010[facility]annCHEM WDFNG8240-61-68 23:25:0025 [facility]annCHEM QTZGV4070-76-69 23:25:0011.6[facility] HermannCHEM PANEL 2014-11-11 23:25:008.1[facility] HermannCHEM GJGSI1363-34-35 23:25:003.6[facility] HermannCHEM JZFVF1637-64-61 23:25:000.6[facility] HermannCHEM HHZMD2473-72-94 23:25:0095[facility] HermannCHEM OAFKA7091-21-42 23:25:33148Mpvxkrkn HermannCHEM XVDRD7602-11-74 23:25:003[facility] HermannCHEM KTNPU4071-53-94 23:25:38218 [facility]annCHEM QOEND0894-37-06 23:25:000.15[facility] HermannENDOCRINOLOGY 2014-11-11 23:25:0014.2[facility] HermannPARATHYROID ASFCGYI3980-25-57 23:25:00 1.08[facility] HermannPARATHYROID KCQRDDA2374-83-70 23:25:001.08[facility] [place] THYROID ACFXY1992-52-58 23:25:003.010[facility] HermannCARDIAC DFNUXEQ5213-47-01 19:02:00<0.02[facility] HermannCHEM JVMIF0948-37-66 19:02:003.5[facility] CHEM VLXSZ3137-26-33 19:02:001.7[facility] HermannCHEM BDNKE0988-24-20 19:02:0018 [facility]annCHEM LGUIA7860-38-24 19:02:000.8[facility] HermannCHEM PANEL 2014-11-11 19:02:004.8[facility] HermannCHEM FULXY0737-04-77 19:02:003.7[facility] HermannCHEM OGAMT0929-22-07 19:02:0080[facility] HermannCHEM BEVEH4044-53-74 19:02:0064[facility] HermannCHEM LTFAO4323-61-20 19:02:000.6[facility] HermannCHEM MPWBB6097-42-04 19:02:0059[facility] HermannCHEM WKBVX6598-26-39 19:02:008.5 [facility] MdpzsepYOFEOMTQEX3954-48-34 19:02:28784Ytozhonf HermannHEMATOLOGY 2014-11-11 19:02:006.8[facility] WqfgpayQLMSVAGNGV9326-40-84 19:02:004.18[facility] NzbuuzdRPAWDCKLNK1531-81-03 19:02:0033.9[facility] UlescmpGIVFXBTAMO2652-12-84 19:02:0013.5[facility] LqlwzphCHGAKHLDLM4359-06-14 19:02:0039.8[facility] [place] ZSEMMJSZBV4306-57-30 19:02:00* Test Item Value Reference Range Interpretation Comments MCH (test code = MCH) 32.2 pg 27.0-31.0 [facility] JldmjbhRYERZFBHJQ3005-54-83 19:02:0095.1[facility] HermannHEMATOLOGY 2014-11-11 19:02:0013.0[facility] GkxuqyqFCQBZRJJAX3497-49-20 19:02:0010.5[facility] OyfawqtZEOJGSXQFJ8298-20-50 19:02:00* Test Item Value Reference Range Interpretation Comments PTT (test code = PTT) 34.4 s 22.9-35.8 [facility] XugvlmoOHZORVXAGN9722-30-42 19:02:00* Test Item Value Reference Range Interpretation Comments PT (test code = PT) 13.1 s 12.0-14.7 [facility] NlpedbuXWVFAOZKLL2795-32-16 19:02:000.99[facility] HermannHEMATOLOGY 2014-11-11 19:02:008.0[facility] UiombtwJJDLOBAGAL1661-94-15 19:02:001.3[facility] HljajwfNTXKLHHKHM6825-57-06 19:02:001.1[facility] IuzezbrSOHBUVNNIL7777-64-51 19:02:000.1[facility] AqjbpuwIPZALZWKRO8549-87-45 19:02:000.6[facility] LIEMXSKVJB2403-00-00 19:02:000.4[facility] KplbpczUGDEDNMRSZ8897-70-66 19:02:00 12.2[facility] HqvsomrDNFUVIABFE5516-40-06 19:02:0010.2[facility] HermannHEMATOLOGY 2014-11-11 19:02:00Normal (11/11/14 2:02 PM)[facility] ZnvrdsvYUQEXSMAQD5026-41-25 19:02:0076.6[facility] EipppxpKPHQYNOLSV4703-41-61 19:02:00Normal (11/11/14 2:02 PM)[facility] DmkkfteUJGDFAETJAJQ2500-60-02 16:29:39473Tasczuvd [place] KDXTDXGKIXLR3211-90-87 08:06:14828Ibwcwccd EgpaudjEOYJVXYDFO3393-42-19 08:06:00 0.7[facility] XpiujmoDDMTZRQSACFW6189-81-39 02:20:85063Qfdhnnix HermannCHEM PANEL 2014-11-06 08:34:001.8[facility] HermannCHEM MASHD2101-17-66 08:34:003.4[facility] OcpwiybBNRPWWUENOMO3277-49-63 08:34:0014.7[facility] WshqcdjUYKTBGKQJSHT0973-64-99 08:34:96518Edbtbzkq NdqwadpHXMAIAVGACAT7802-73-88 08:34:0080[facility] [place] RCAUDSWBXICK1911-01-26 08:34:000.6[facility] BcfvgowUOHZGDNJEBZG8102-52-50 08:34:0012[facility] NrttugoSTAZOLDWIQAJ7487-82-77 08:34:0024[facility] [place] REYDLVVLJBWV1397-49-18 08:34:00190Tfodxoge IczsrflSRNDQEHDYBOF1309-17-58 08:34:004.7[facility] OkwjqazURMJRYIFJDKS6109-95-61 08:34:008.8[facility] [place] SJPAWHVMOX4691-13-58 08:34:44197Rvhxyrcg LpaocguKJIGPGXZIM4486-26-20 08:34:008.1 [facility] WqnafqoLYWCTAMQBF0807-66-10 08:34:0011.9[facility] HermannHEMATOLOGY 2014-11-06 08:34:0034.2[facility] KpqdhgfEFADBBSGDG7898-53-18 08:34:003.54[facility] QemgrjcIXUWRYLVLE3767-91-12 08:34:00* Test Item Value Reference Range Interpretation Comments MCH (test code = MCH) 33.5 pg 27.0-31.0 [facility] QmjpcfwWGQCXWRTKL0531-20-97 08:34:0096.6[facility] HermannHEMATOLOGY 2014-11-06 08:34:0034.7[facility] FojxxniNGVDUHEQIA0538-85-77 08:34:0012.8[facility] FlrqcqiVXNMDJJIUF5701-33-88 08:34:0010.8[facility] FgngatyHJDIUSDTZO2135-05-56 08:34:000.1[facility] OcbezjvTKGQZYQCUE9962-51-55 08:34:000.9[facility] JXSHOUVVXC2266-55-16 08:34:000.9[facility] RrqypwkCRSHEPZVWT1273-44-31 08:34:008.6 [facility] BpiwmugDQPWYCFVGL4065-91-27 08:34:0033.4[facility] HermannHEMATOLOGY 2014-11-06 08:34:003.6[facility] KkbdkyoCKQMRFWQBO0061-52-37 08:34:006.1[facility] QesvjmrOKBVYXYROE5307-68-88 08:34:000.9[facility] GiovahgSRSWXDWPYN9695-85-03 08:34:000.1[facility] QggzeusGJOSENMUIJ6062-75-85 08:34:0056.2[facility] SMPBCEQASI5720-25-18 17:51:00* Test Item Value Reference Range Interpretation Comments PTT (test code = PTT) 33.5 s 22.9-35.8 [facility] WrodxchZBADOIYDQP7038-20-78 17:51:00* Test Item Value Reference Range Interpretation Comments PT (test code = PT) 14.3 s 12.0-14.7 [facility] OboahjgQJHFUKVAAF4062-40-07 17:51:001.10[facility] HermannTOXICOLOGY 2014-11-05 13:15:0098[facility] HermannCHEM MKHZD0810-64-86 06:30:08112Jiryyaif HermannCHEM LKBIK2546-91-41 06:30:06286Sgpjyfap HermannCHEM GWOKJ9570-88-43 06:30:0016[facility] HermannCHEM WAEHY2896-82-42 06:30:008.8[facility] HermannCHEM YOANS7249-48-04 06:30:0015.0[facility] HermannCHEM VBXTT4958-99-52 06:30:000.8 [facility] HermannCHEM UKUMN9821-78-00 06:30:004.0[facility] HermannCHEM PANEL 2014-11-05 06:30:0096[facility] HermannCHEM JMBVO9176-10-56 06:30:0024[facility] HermannCHEM FTHOV4360-63-43 06:30:001.9[facility] HermannCHEM ZPARP5254-23-49 06:30:003.1[facility] OhldibnFCGJQKHBRU2224-37-16 06:30:001.2[facility] TSARHIYJNJ9452-87-58 06:30:002.2[facility] SwokcjdDXHOIWAUFI7066-70-46 06:30:00 14.1[facility] AdqjzyoUCTDPSRSKV9641-86-55 06:30:000.6[facility] HermannHEMATOLOGY 2014-11-05 06:30:000.1[facility] YhkcoejBZYXBMLNZU3530-78-22 06:30:0012.4[facility] FpznlntTEALPRREPA3890-60-13 06:30:0080.2[facility] ViraiwjXEPKXONFCN8577-02-92 06:30:006.7[facility] BndtusvNYWKGIIWWU4537-08-49 06:30:000.1[facility] NAKDEHWSLM7180-11-27 06:30:003.72[facility] KobzbggQFWQJZQOAX3732-53-88 06:30:00 17.5[facility] XiosjtrZXCFHNNCTM0095-75-89 06:30:0035.5[facility] HermannHEMATOLOGY 2014-11-05 06:30:0012.2[facility] ZnianboPHRSAQQTHL7265-84-23 06:30:0013.1[facility] WsghiohCFEMRZMDGQ9033-80-67 06:30:0034.3[facility] YyqrwueFHUXIKJQDI0266-70-70 06:30:00* Test Item Value Reference Range Interpretation Comments MCH (test code = MCH) 32.7 pg 27.0-31.0 [facility] PbxjcysCSRJOGBDOV3772-91-53 06:30:91146Deuchfwv HermannHEMATOLOGY 2014-11-05 06:30:0095.5[facility] WbnzuhqQJMOPOCKTI4060-40-36 06:30:006.9[facility] HermannPARATHYROID USFNKMW5211-38-03 06:30:001.05[facility] HermannPARATHYROID ICYPSLV8468-06-99 06:30:001.08[facility] RynggrkZDMPNWTPNQ0001-19-59 06:30:12723 [facility] XergaghBXKBPOXRCTWE3756-25-20 02:15:0027[facility] HermannELECTROLYTES 2014-11-05 02:15:008.3[facility] XetlnttFJGVQUUWIYYK7781-57-11 02:15:0011.1 [facility] MkaskzoTNSGIZCUJPKK7683-40-86 02:15:004.1[facility] HermannELECTROLYTES 2014-11-05 02:15:0099[facility] JqmpuntRARLEVGSWHAM3989-89-49 02:15:0014[facility] RdurcinVPGPZYFPXPHA6590-98-37 02:15:000.9[facility] TnnzktnHWFDUAKWNRGT3361-94-55 02:15:99084Vlgbwzwu WjqxajvSYGKVPCTGREB2676-31-79 02:15:06169Eyzusccy [place] CARDIAC UZVDUZO7374-90-46 13:46:00<0.02[facility] HermannCARDIAC FSMZSYF7896-85-83 13:46:0085[facility] HermannCARDIAC EDMOPSZ0839-47-62 13:46:00<0.010[facility] HermannCARDIAC XMZYDTW9935-36-74 13:46:000.9[facility] HermannCARDIAC ENZYMES 2014-11-04 13:46:000.8[facility] HermannCHEM OTURG0454-69-45 13:46:00<0.05[facility] HermannCHEM EEQJW9627-38-18 13:46:81256Zjupbiyr HermannURINE SELP0116-17-27 13:46:0074[facility] HermannURINE RWHJ7472-39-92 13:46:66027Iqznoavo [place] CARDIAC ZTGZRAK2134-10-14 07:54:00<0.02[facility] HermannCARDIAC GYOPVNH5287-63-83 07:54:00<0.010[facility] HermannCARDIAC EIPMMTG6128-43-96 07:54:0098[facility] HermannCARDIAC OHVVBMN4062-76-26 07:54:000.8[facility] HermannCARDIAC ENZYMES 2014-11-04 07:54:000.8[facility] HermannCHEM ROHEG9653-01-26 06:16:00<0.05[facility] HermannCHEM FSQGB9358-84-94 06:16:001.8[facility] HermannCHEM GXGIT1066-43-39 06:16:003.1[facility] HgmohuoAKIKEWRTRP1573-80-05 06:16:0012.1[facility] [place] LLWTSSVRSV4287-90-85 06:16:0037.6[facility] SjkrowbRWKCDZDZBA3611-58-50 06:16:00 13.1[facility] NkqyptiXALANQWCRZ2911-99-20 06:16:0095.7[facility] HermannHEMATOLOGY 2014-11-04 06:16:003.93[facility] WcmlrbqGFUURVESOG4285-81-20 06:16:00* Test Item Value Reference Range Interpretation Comments MCH (test code = MCH) 33.4 pg 27.0-31.0 [facility] AdhrmbaZQABYXBIFZ6197-62-19 06:16:0012.8[facility] HermannHEMATOLOGY 2014-11-04 06:16:0034.9[facility] KuecmxrLKDDIQKRFB2904-56-15 06:16:007.1[facility] NpsfqzxFAGJSNDDCJ4575-19-01 06:16:51693Flfojumi WztolmhQZZQBQGUMO9515-63-90 06:16:0090.6[facility] ImakydsWBAEAIDECQ3232-75-64 06:16:000.9[facility] YNLPRTUIDJ6456-55-98 06:16:000.2[facility] UuhdsvzPSEITSVKNZ2634-70-25 06:16:000.2 [facility] EoyyftxPWSXTRXCAD5064-64-39 06:16:000.2[facility] HermannHEMATOLOGY 2014-11-04 06:16:001.8[facility] ZfgeewlVVDYEVFHBO2739-83-51 06:16:007.2[facility] OfwvvenJSIIBLVHDV4156-81-75 06:16:0010.9[facility] HermannPARATHYROID PROFILE 2014-11-04 06:16:001.17[facility] HermannPARATHYROID HMNQPIY0909-97-40 06:16:00 1.19[facility] BzqawcbNREGQEUERK9459-40-57 06:16:0084[facility]annURINE AND XETNT7384-00-78 06:16:00Light Yellow (11/04/14 1:16 AM)[facility]UR[facility] AND ZIXQH8802-80-65 06:16:000.2[facility]annURINE AND DQJHB4893-34-30 06:16:00 Negative (11/04/14 1:16 AM)[facility]UR[facility] AND EBRLZ3771-86-56 06:16:00 Negative (11/04/14 1:16 AM)[facility]UR[facility] AND SKTWL6989-06-54 06:16:00* Test Item Value Reference Range Interpretation Comments UA pH (test code = UA pH) 7.0 1 5.0-8.0 [facility]annUR[facility] AND OYKNB9210-20-31 06:16:00Negative (11/04/14 1:16 AM) [facility]UR[facility] AND ZHKRZ7344-35-18 06:16:00<=1.005 *NA*(11/04/14 1:16 AM) [facility] TXMLM0623-93-10 06:16:00Negative (11/04/14 1:16 AM) [facility] YYWHT0199-46-95 06:16:00Clear (11/04/14 1:16 AM) [facility] UTHZV9572-60-39 06:16:00Negative *NA*(11/04/14 1:16 AM) [facility] OLFEH7960-13-33 06:16:00Negative *NA*(11/04/14 1:16 AM) [facility]UR[facility] AND NTTIJ2520-18-58 06:16:00Trace *ABN*(11/04/14 1:16 AM) [facility] AND QTKLV4306-92-54 06:16:00None Seen (11/04/14 1:16 AM) [facility] HermannBACTERIAL - WDTNAQTG7539-33-72 05:45:00Negative (11/04/14 12:45 AM)[facility] HermannBLOOD BANK FWEURNX2674-29-42 00:30:00Negative (11/03/14 7:30 PM)[facility] HermannCHEM JZDGS7220-28-21 00:30:000.8[facility] HermannHEMATOLOGY 2014-11-04 00:30:0013.0[facility] VrabjsxPMENDINBMV7865-64-86 00:30:00* Test Item Value Reference Range Interpretation Comments K-time (test code = K-time) 1.2 min 0.6-2.3 [facility] GlfzeegHLFTXVRPJH8588-84-49 00:30:00* Test Item Value Reference Range Interpretation Comments ACT (TEG) (test code = ACT (TEG)) 113 s 86-118 [facility] VnyvypoYVRLISUJMV2607-76-98 00:30:00* Test Item Value Reference Range Interpretation Comments R-time (test code = R-time) 0.7 min 0.4-0.7 [facility] LvebgejJRRVERFHBJ3337-10-61 00:30:00* Test Item Value Reference Range Interpretation Comments Angle (test code = Angle) 76 degrees 64-80 [facility] CgnbhizIMPQMCLUWQ8854-25-81 00:30:00* Test Item Value Reference Range Interpretation Comments Split Point (test code = Split Point) 0.6 min [facility] CnjxqikKGHDPZQWPQ1624-31-12 00:30:00* Test Item Value Reference Range Interpretation Comments Max Amp (test code = Max Amp) 59 mm 52-71 [facility] OtyznstQXFQSXJVPF6904-41-40 00:30:007.2[facility] HermannHEMATOLOGY 2014-11-04 00:30:000.1[facility] SmhdetnUEEYCRJSWA8585-11-88 00:30:000.2[facility] WazjvvmAYBMWIJMPW4757-04-75 00:26:00<3[facility] GsynmefUQVQCRMAHQ8355-39-24 00:26:00<0.003[facility] HmuvirzWXQEOLZONL9834-73-08 00:02:001.06[facility] [place] UJUPCAOADR8962-56-28 00:02:00* Test Item Value Reference Range Interpretation Comments PT (test code = PT) 13.8 s 12.0-14.7 [facility] GwjrcxiJYSWMTOBJT5283-33-05 00:02:00* Test Item Value Reference Range Interpretation Comments PTT (test code = PTT) 36.3 s 22.9-35.8 [facility] HermannCHEM FCVXY4420-97-84 23:09:004.5[facility] HermannCHEM PANEL 2014-11-03 23:09:000.8[facility] HermannCHEM YPNEB9908-95-20 23:09:0014.1[facility] HermannCHEM VEIPP0224-55-22 23:09:0016[facility] HermannCHEM KGDSN8337-60-63 23:09:0095[facility] HermannCHEM XFAIU2739-61-14 23:09:07055Bnreicep HermannCHEM WZPTF5817-77-63 23:09:004.1[facility] HermannCHEM AJFPL3405-93-39 23:09:0094 [facility] HermannCHEM PUICN1706-59-29 23:09:90104Onxzoyle HermannCHEM PANEL 2014-11-03 23:09:008.8[facility] HermannCHEM UCHXA7430-36-45 23:09:000.7[facility] HermannCHEM WPKDK6147-61-12 23:09:0024[facility] HermannCHEM ATOGA5911-12-14 23:09:000.2[facility] HermannCHEM HRYMI6090-87-35 23:09:0062[facility] HermannCHEM QRTPD7599-07-31 23:09:0054[facility] HermannCHEM BQTAP1907-14-27 23:09:0056 [facility] HermannCHEM YBXEB1930-75-93 23:09:008.3[facility] HermannCHEM PANEL 2014-11-03 23:09:003.8[facility] HermannCHEM AOEBG3666-97-72 23:09:0011[facility] VlbuzwkETHQKLXNJJ8101-48-53 23:09:000.9[facility] BxfqvyqTBLJCGTXCN1517-58-47 23:09:007.2[facility] ChioukjAWICQVJHLS4138-53-87 23:09:008.1[facility] [place] OEFJHYVLPI9213-37-21 23:09:001.9[facility] YtyqqiyDFJDJUBSTI2517-02-73 23:09:002.0 [facility] RybfjvuSTHHDRTMZJ1847-51-91 23:09:00Normal (11/03/14 6:09 PM)[facility] EuiophjYMYAYKGLPI0966-92-30 23:09:0019.3[facility] XsrdssgWQQOBFWDBM7415-58-28 23:09:00Normal (11/03/14 6:09 PM)[facility] IljawbgPQVXLEHOCI4950-63-69 23:09:00 69.8[facility] WjvavjfZQRYTFDJOZ3947-77-24 23:09:000.8[facility] HermannHEMATOLOGY 2014-11-03 23:09:000.2[facility] MeimokdYUWPSSCRRK2435-21-34 23:09:000.1[facility] TzyxtrrYRZTFSCUGP6607-23-67 23:09:0094.0[facility] NtduuwqBZIFJQXLIA6330-21-67 23:09:00* Test Item Value Reference Range Interpretation Comments MCH (test code = MCH) 33.3 pg 27.0-31.0 [facility] LdwfwhgFNIPLJXONO7155-71-08 23:09:004.05[facility] HermannHEMATOLOGY 2014-11-03 23:09:17591Rnaqvjfr KuugqjwBANCDAFNRF5076-93-87 23:09:0012.9[facility] BcxnphzYPCIZDEPXV2448-79-99 23:09:0013.5[facility] FrwgbptNJTLHXJAOP1339-42-24 23:09:0035.4[facility] FdwxnhkYRYGQZORVU1644-02-72 23:09:0038.1[facility] [place] WQPPSOTXGG9318-14-54 23:09:006.6[facility] IhmhenbVYIIVLEBOW2573-60-28 23:09:00 10.2[facility] HermannCHEM FXACR4863-97-57 02:22:67584Imkzffwx HermannCHEM PANEL 2014-11-02 02:22:0067[facility] HermannCHEM RAWXG2456-61-43 02:22:007.8[facility] HermannCHEM OYPYW5988-99-63 02:22:008.8[facility]annCHEM GJZUD0944-15-65 02:22:008[facility]annCHE[facility] PFJEL7958-51-53 02:22:0073[facility]annCHE[facility] FCUMO1416-94-08 02:22:0033[facility]annCHE[facility] ZQCUF4964-04-39 02:22:000.7 [facility]annCHE[facility] EFQGI2469-16-84 02:22:0038[facility]annCHEM PANEL 2014-11-02 02:22:0053[facility]CHE[facility] KQQBQ6483-62-02 02:22:003.7[facility]annCHEM BLNDH0694-70-79 02:22:000.2[facility]annCHEM FBMBS2157-43-03 02:22:004.0[facility]annCHEM PLCFY1304-20-08 02:22:01735Qrlxfkwl HermannCHEM RRZUO6190-35-12 02:22:0093[facility]annCHEM RTHOD7876-34-64 02:22:0010.0 [facility]CHE[facility] KXYWP2122-03-46 02:22:004.1[facility] HermannCHEM PANEL 2014-11-02 02:22:0011[facility]annCHE[facility] CEEGT5803-29-58 02:22:000.9[facility] HuezzsyQDQLMZERNL9993-89-45 02:22:0035.9[facility] VwkcslpVXTDUYGGIE3145-45-13 02:22:0012.9[facility] KiivpuqIPZLEIKNIK6173-33-66 02:22:50273Sdqwcoff Sandeep OIMAQXRUJE1195-46-69 02:22:006.7[facility] HvanefkXVBFSUDZVP5960-80-68 02:22:00 10.0[facility] FhyjyncQXRVWZLTRX0150-40-37 02:22:004.01[facility]annHEMATOLOGY 2014-11-02 02:22:00* Test Item Value Reference Range Interpretation Comments MCH (test code = MCH) 33.9 pg 27.0-31.0 [facility] QlvvdwiYMFRMRGRNH9456-88-62 02:22:0013.6[facility] HermannHEMATOLOGY 2014-11-02 02:22:0037.9[facility] RtajtylNQGKQSDUUO6070-37-88 02:22:0094.3[facility] SskhlslGAMAUHERGK9944-62-33 02:22:0055.2[facility] LvkheixMKYQQFBDZS4793-97-82 02:22:0031.9[facility] NapjourJGBSDOPIFS5020-13-08 02:22:009.3[facility] RZCKXCWYVJ9562-52-23 02:22:002.9[facility] LmqdmsdQHGUKMUCDP5711-78-89 02:22:000.7 [facility] FhkbhdhOWVJQJWRJN4568-35-68 02:22:005.5[facility] HermannHEMATOLOGY 2014-11-02 02:22:003.2[facility] WzjvmqiQTCHUMKMWM3335-20-71 02:22:000.9[facility] SursohjWDFRBFBEOE4908-11-68 02:22:000.3[facility] PsfphryBGXPAOWSLL5118-25-53 02:22:000.1[facility] RnweertIZGRMFGYGJ4285-80-19 02:22:55038Qkcgzqwg Sandeep KTXKBDXMHL0866-04-64 02:22:000.7[facility]UR[facility] AND RSPOL4476-69-29 00:50:00Negative (06/24/14 7:50 PM)[facility] ZGWJH9532-47-31 00:50:00Negative *NA*(06/24/14 7:50 PM)[facility] USOAR9836-14-55 00:50:00Negative (06/24/14 7:50 PM)[facility] MLNLY3138-52-76 00:50:005[facility] NPWOW3461-28-27 00:50:001[facility] URINE AND JVJIF3290-38-28 00:50:006.0[facility] AND BUHDN1719-60-55 00:50:001.026[facility] JHIBY4829-04-05 00:50:00Clear (06/24/14 7:50 PM)[facility] NAFKM2086-02-86 00:50:00Yellow *NA*(06/24/14 7:50 PM)[facility] ISOWI7849-82-69 00:50:00Negative (06/24/14 7:50 PM)[facility]annCHE[facility] BSGES1108-59-56 00:46:10246Acgetqvw HermannCHEM PANEL 2014-06-25 00:46:57335Fuueyttg HermannCHEM ECLHV8314-59-96 00:46:000.3[facility]annCHEM DSTDR6117-11-53 00:46:0080[facility]annCHE[facility] RADWW3584-76-91 00:46:0027[facility]annCHE[facility] TZVSS0787-32-07 00:46:008.6[facility]annCHEM FYSKP0348-02-90 00:46:0011[facility]annCHE[facility] WEUWJ5075-14-85 00:46:0080 [facility]annCHE[facility] EMRLW7046-31-11 00:46:000.8[facility] HermannCHEM PANEL 2014-06-25 00:46:0022[facility]annCHEM XCIAA1955-11-99 00:46:004.0[facility]annCHE[facility] ITQRF3561-71-93 00:46:0015[facility]annCHEM OPVXG2191-44-91 00:46:004.0[facility]annCHEM WMLTR7307-08-20 00:46:009.5[facility]annCHEM LZEBC8807-17-40 00:46:0092[facility]annCHEM WJGUB1556-32-65 00:46:17279 [facility]annCHE[facility] VJMVY7141-08-83 00:46:0015.0[facility] HermannCHEM PANEL 2014-06-25 00:46:004.6[facility]annCHEM ZLNIB2255-99-23 00:46:000.9[facility]annCHEM LYRPJ9945-72-35 00:46:0014[facility]annCHEM MAZRE9221-34-67 00:46:0034[facility] LffbvcnRHALHPWXAF5774-25-20 00:46:0063.4[facility]ep ACWHVCQJOJ9684-25-68 00:46:0025.1[facility] IwilsncIUKQPYGWMG4489-45-24 00:46:00 9.4[facility] TsoduafGUDXAIMNTS9542-43-85 00:46:000.1[facility] HermannHEMATOLOGY 2014-06-25 00:46:000.2[facility] DutvcpkFKWEYIWYPA8880-51-90 00:46:001.0[facility] RaqzcslCPXARBPQUV4068-75-66 00:46:002.7[facility] LpkkevhBMVQHQDPQJ6284-41-67 00:46:006.9[facility] VwcbvwcELRZCNDBGC4726-04-51 00:46:000.7[facility] EWRHWSILFD8436-77-78 00:46:001.4[facility] HbtkregBDEKWLBNSI3440-16-12 00:46:006.7 [facility] KuudbqvMGXJCYMKOL6823-88-67 00:46:54866Hyixcloi HermannHEMATOLOGY 2014-06-25 00:46:0013.1[facility] YpmsvilSCJUAVSRPG1882-95-54 00:46:0035.4[facility] DpmmyukEHICIMJDVG1306-40-55 00:46:00* Test Item Value Reference Range Interpretation Comments MCH (test code = MCH) 32.9 pg 27.0-31.0 [facility] MxzyktzLGCCIIQRZM4911-82-40 00:46:0040.1[facility] HermannHEMATOLOGY 2014-06-25 00:46:0014.2[facility] ZackadkUCRCVRFWQE1451-10-21 00:46:004.33[facility] WftyiokHGCXVCJLZL0552-15-50 00:46:0010.8[facility] PwaicbhQKXRXGWRXW5718-07-67 00:46:0092.8[facility] LkzrimiAZXBXEYYTS2138-14-65 00:46:00Negative (06/24/14 7:46 PM)[facility] NsdeixjOXNPVBCAUS8084-22-46 04:35:00Negative (02/28/2013 22:35:00) [facility] OocptfvAOPYGJDPKW0199-52-54 04:35:00Negative (02/28/2013 22:35:00) [facility] VbuoxszUIMKCHENXD8379-87-90 04:35:00<1[facility]annURINALYSIS 2013-03-01 04:35:00Clear (02/28/2013 22:35:00) [facility]annURINALYSIS 2013-03-01 04:35:001.014[facility] YzhsnrvSTAITGFFZG4703-54-42 04:35:007.0[facility] KsvmmfbPWTMGTAYZI2147-26-48 04:35:00Negative *NA*(02/28/2013 22:35:00) [facility] WgmcbhoXJHEEVHZGB5561-15-66 04:35:00Negative (02/28/2013 22:35:00) [facility] UyqksrrVTAJLXZAE0882-26-14 03:40:0017[facility] PcbmxpwGHSLYDEIG9017-46-00 03:40:0013.9[facility] UhlljceYMQWRPXZZ9460-71-09 03:40:000.9[facility] AIAFOMGKB8020-45-74 03:40:004.3[facility] GzdcnfaKFMPEEYQG0477-67-06 03:40:83798 [facility] LjektptJDEQZOGER8913-27-91 03:40:38182Jqthkmph HermannCHEMISTRY 2013-03-01 03:40:68726Mqwspdtw QgjdsbwXCTFWFSOK9869-51-85 03:40:003.9[facility] TwkdytdMMRNQXTIV5609-73-04 03:40:009.4[facility] ShsjwhrWNGWHTCKK2900-07-73 03:40:000.7[facility] RisyqmaNLMKJPGUB4281-29-94 03:40:0012[facility] YXYUJZTJT7793-51-17 03:40:000.2[facility] PydatkuMLEIRUVAE2142-34-20 03:40:0028 [facility] EegvvcjVQMOYJJYT3788-64-24 03:40:0098[facility] HermannCHEMISTRY 2013-03-01 03:40:008.2[facility] DhrrdzwHFVLBKDRW3092-71-37 03:40:003.9[facility] GijampaFMFFIKDVL7961-48-78 03:40:0095[facility] AvnbkmmAXILWBBRD5679-43-32 03:40:0052[facility] KrblhzeGUHQDRQET6568-97-32 03:40:0033[facility] KBASWBUPUT0254-26-63 03:40:000.0[facility] OpjtihwFPKOKDZXVU0275-46-53 03:40:000.4 [facility] AdqmjseENCHLCZGRA7286-91-23 03:40:002.6[facility] HermannHEMATOLOGY 2013-03-01 03:40:006.2[facility] PkoppjvUQQJQJLCQT9936-35-87 03:40:000.4[facility] EyxinnoJBKQLRKLVL3331-14-19 03:40:004.2[facility] AegdvktAGOBBOTLTW8160-80-32 03:40:001.2[facility] OcqlcmhWYGBZTUZED7408-37-92 03:40:0024.5[facility] [place] JIZMLVNIZO1534-04-21 03:40:0011.1[facility] LmwqrimXCEBNBMRLE0390-50-06 03:40:00 59.8[facility] LmhutvhBYEXLILPJL8725-68-81 03:40:00* Test Item Value Reference Range Interpretation Comments MCH (test code = MCH) 31.5 pg 27.0-31.0 H [facility] UsiyhcdMIJSVYCUOV2926-14-38 03:40:007.5[facility]annHEMATOLOGY 2013-03-01 03:40:94344Drlfqsxt SlzsaqkPPAKYMZFFO0435-52-24 03:40:0013.8[facility] BfravqrFVDREAPHYA1214-59-22 03:40:0033.7[facility] AfhxjjqVRSWLJEAUL8199-73-70 03:40:0093.4[facility] BwxmvlxQOXBIZWKOT7952-48-00 03:40:0040.4[facility] Sandeep SOEASOZRXH6740-39-21 03:40:0013.6[facility] NnzmxwrGSPCYCLABU8774-26-55 03:40:00 4.32[facility] HydbbluLSRQXEZEMB0599-20-14 03:40:0010.4[facility]
[2019-09-22] MEDS ORDERED: SODIUM CHLORIDE 0.9% 1000ML 1,000 ML IV STA ×2 (15:12→15:14)
[2019-09-22 15:29] LABS: BASOPHILS # (AUTO) 0.1 (0.0-0.1); BASOPHILS % 0.7 % (0.0-1.0); EOSINOPHILS # (AUTO) 0.1 (0.0-0.4); EOSINOPHILS % 1.5 % (0.0-6.0); HEMATOCRIT 35.8 % (38.2-49.6); HEMOGLOBIN 12.4 g/dL (14.0-18.0); LYMPHOCYTES # (AUTO) 3.4 (1.0-3.2); LYMPHOCYTES % 39.4 % (18.0-39.1); MEAN CORPUSCULAR HGB CONC 34.6 g/dL (31-35); MEAN CORPUSCULAR VOLUME 92.3 fL (81-99); MONOCYTES # (AUTO) 0.8 (0.2-0.8); MONOCYTES % 9.6 % (4.4-11.3); NEUTROPHILS # (AUTO) 4.2 (2.1-6.9); NEUTROPHILS % 47.9 % (38.7-80.0); PLATELET COUNT 357 x10e3/uL (140-360); RED BLOOD COUNT 3.88 x10e6/uL (4.3-5.7)
--- NOTE | 2019-09-22 15:39 | Diagnostic Imaging Report ---
EXAMINATION: CHEST SINGLE (PORTABLE) INDICATION: DIZZY COMPARISON: Chest radiograph 05/03/2018. FINDINGS: TUBES and LINES: None. LUNGS: Lungs are mildly hypoinflated. There is no evidence of pneumonia or pulmonary edema. PLEURA: No pleural effusion or pneumothorax. HEART AND MEDIASTINUM: The cardiomediastinal silhouette is unremarkable. BONES AND SOFT TISSUES: No acute osseous lesion. Soft tissues are unremarkable. UPPER ABDOMEN: No free air under the diaphragm. IMPRESSION: No acute thoracic abnormality. Signed by: Dr. Terrell Harper MD on 09/22/2019 3:36 PM
--- NOTE | 2019-09-22 15:42 | Diagnostic Imaging Report ---
Exam: Head CT without contrast History: Dizziness, headache Comparison studies: Brain MRI 05/03/2018 Technique: Axial images were obtained from the skull base to the vertex. Coronal and sagittal images reconstructed from the axial data. Dose modulation, iterative reconstruction, and/or weight based adjustment of the mA/kV was utilized to reduce the radiation dose to as low as reasonably achievable. Radiation dose: Total DLP: 921.4 mGy*cm. Estimated effective dose: DLP x 0.015 Intravenous contrast: None Findings: Scalp and bones: Postsurgical changes with prior right frontal and right parietal anita holes. No fracture or lytic or blastic lesion. Brain sulci: Appropriate for age. Ventricles: Normal in size and configuration. No hydrocephalus. Extra-axial spaces: No masses, no fluid collection. Parenchyma: Unchanged nonspecific physiologic calcifications in the globi pallidi. A 4 mm calcific density in the right frontal periventricular white matter corresponds to focal signal abnormality on the prior brain right 05/03/2018 and may be a small cavernous malformation or dystrophic calcification. The left hippocampus is asymmetrically smaller in volume consistent with known medial temporal sclerosis which is better visualized on the prior brain MRI. Sellar/suprasellar region: No abnormalities. Craniocervical junction: Patent foramen magnum. No Chiari one malformation. Included paranasal sinuses: Clear. Middle ear and mastoid cavities: Clear. Incidental findings: Atherosclerotic calcifications in the carotid siphons. IMPRESSION: No acute intracranial abnormalities. Chronic findings: 1. Left mesial temporal sclerosis. 2. Nonspecific physiologic calcifications in the globi pallidi. 3. Unchanged small right frontal dystrophic calcification or possibly cavernous malformation. 4. Surgical changes with prior right frontal and parietal anita holes. Signed by: Dr. Td Rebollar M.D. on 09/22/2019 3:39 PM
[2019-09-22 15:43] LABS: INR 0.89; PROTHROMBIN TIME 12.6 seconds (11.9-14.5)
[2019-09-22 15:44] LABS: PARTIAL THROMBOPLASTIN TIME 29.7 seconds (23.8-35.5)
[2019-09-22 15:53] LABS: ALANINE AMINOTRANSFERASE 38 IU/L (0-55); ALBUMIN 4.1 g/dL (3.5-5.0); ALKALINE PHOSPHATASE 64 IU/L (40-150); ANION GAP 13.9 mmol/L (8-16); BLOOD UREA NITROGEN 12 mg/dL (7-26); BUN/CREATININE RATIO 15 (6-25); CALCIUM 10.1 mg/dL (8.4-10.2); CARBON DIOXIDE 29 mmol/L (22-29); CHLORIDE 98 mmol/L (98-107); CREATINE KINASE 213 IU/L (30-200); CREATININE, SERUM 0.78 mg/dL (0.72-1.25); EST GLOMERULAR FILTRATION RATE > 60 ML/MIN (60-); GLUCOSE 105 mg/dL (74-118); MAGNESIUM 1.4 MG/DL (1.3-2.1); POTASSIUM 3.9 mmol/L (3.5-5.1); SODIUM 137 mmol/L (136-145)
[2019-09-22 17:04] LABS: CLARITY,URINE HAZY (CLEAR); COLOR,URINE YELLOW (YELLOW); KETONES,URINE 1+ (NEGATIVE); LEUKOCYTE ESTERASE ,URINE NEGATIVE (NEGATIVE); NITRITE,URINE NEGATIVE (NEGATIVE); PROTEIN,URINE DIPSTICK 1+ (NEGATIVE); URINE UROBILINOGEN 0.2 mg/dL (0.2 - 1)
[2019-09-22 17:05] LABS: BILIRUBIN,URINE NEGATIVE (NEGATIVE)
[2019-09-22 17:21] LABS: AMORPHOUS SEDIMENT,URINE FEW (FEW); BACTERIA,URINE FEW /HPF; EPITHELIAL CELLS,URINE FEW /LPF; MUCUS,URINE FEW (RARE); OVAL FAT BODIES,URINE FEW
--- NOTE | 2019-09-22 17:37 | Emergency Department Note ---
History of Present Illnes History of Present Illness Chief Complaint: General Medicine Complaints History of Present Illness This is a 39 year old male PATIENT IN FROM HOME VIA EMS WITH COMPLAINTS OF DIZZINESS AND HEADACHE AFTER W[facility]ING [facility]. PATIENT WITH A HISTORY OF SEIZURES AND HAS BEEN TOLD NOT TO STAY OUTSIDE. PER EMS, PATIENT HAS HISTORY OF THE SAME COMPLAINTS. PATIENT ALERT AND ORIENTED, RESP EVEN AND NONLABORED, APPEARS IN NO DISTRESS. 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 Any updates have been documented here. Past Medical History Recent Fever: No Clinical Suspicion of Infectio: No New/Unexplained Change in Ment: No Past Medical History: Diabetes, Seizure Disorder, Depression, Hyperlipedemia Other Medical History: Hyperlipidemia Past Surgical History: Cholecysctectomy Other Surgery: PORTACATH, NOW REMOVED. BRAIN SX. BRAIN SX (ANUERYSM) Social History Smoking Cessation: Never Smoker Counseling Performed: No Alcohol Use: None Any Illegal Drug Use: No TB Exposure/Symptoms: No Physically hurt or threatened: No Family History Family history of heart diseas: No Other Last Tetanus: OOD Any Pre-Existing Lines (PICC,: No Is patient up to date on immun: Yes Last Flu: UTD Last Pneumovax: NA Review of Systems Review of Systems Constitutional: no symptoms EENTM: no symptoms Cardiovascular: no symptoms Respiratory: no symptoms Gastrointestinal: no symptoms Genitourinary: no symptoms Musculoskeletal: no symptoms Neurological: headache, other (DIZZY) Psychological: no symptoms Endocrine: no symptoms Hematological/Lymphatic: no symptoms Review of other systems All other systems reviewed and negative. Physical Exam Related Data Allergies: Coded Allergies: hydrocodone (Verified Allergy, Unknown, Dizziness, 09/22/19) metformin (Verified Allergy, Unknown, 09/22/19) simvastatin (Verified Allergy, Unknown, WEAKNESS, 09/22/19) Triage Vital Signs Vital Signs Date Time Temp Pulse Resp B/P (MAP) Pulse Ox O2 Delivery O2 Flow Rate FiO2 09/22/19 14:49 99.0 98 18 152/97 99 Physical Exam CONSTITUTIONAL Constitutional: well-developed, well-nourished HENT HENT: normocephalic, atraumatic, oropharynx clear/moist, nose normal HENT L/R: left ext ear normal, right ext ear normal EYES Eyes: PERRL, conjunctivae normal NECK Neck: ROM normal PULMONARY Pulmonary: effort normal, breath sounds normal CARDIOVASCULAR Cardiovascular: regular rhythm, heart sounds normal, capillary refill normal, normal rate GASTROINTESTINAL Abdominal: soft, nontender, bowel sounds normal GENITOURINARY Genitourinary: exam deferred SKIN Skin: warm, dry MUSCULOSKELETAL Musculoskeletal: ROM normal NEUROLOGICAL Neurological: alert, oriented x 3, no gross motor or sensory deficits, other (NO NYSTAGMUS, CEREBELLAR INTACT); abnormal coordination, abnormal gait PSYCHOLOGICAL Psychological: mood/affect normal, judgement normal Results Laboratory Result Diagram: 09/22/19 1510 09/22/19 1510 Laboratory Laboratory Tests Test 09/22/19 15:15 09/22/19 15:10 Urine Color Yellow (YELLOW) Urine Clarity Hazy (CLEAR) Urine pH 6.5 (5 - 7) Urine Specific [place] 1.025 (1.010-1.025) Urine Protein 1+ (NEGATIVE) Urine Glucose (UA) 2+ (NEGATIVE) Urine Ketones 1+ (NEGATIVE) Urine Blood Negative (NEGATIVE) Urine Nitrite Negative (NEGATIVE) Urine Bilirubin Negative (NEGATIVE) Urine Urobilinogen 0.2 mg/dL (0.2 - 1) Urine Leukocyte Esterase Negative (NEGATIVE) Urine RBC 6-10 /HPF (0-5) Urine WBC 6-10 /HPF (0-5) Urine Epithelial Cells Few /LPF (NONE) Urine Amorphous Sediment Few (FEW) Urine Bacteria Few /HPF (NONE) Urine Coarse Granular Casts 1-5 (0) Urine Mucus Few (RARE) Urine Oval Fat Bodies Few (NONE) White Blood Count 8.68 x10e3/uL (4.8-10.8) Red Blood Count 3.88 x10e6/uL (4.3-5.7) Hemoglobin 12.4 g/dL (14.0-18.0) Hematocrit 35.8 % (38.2-49.6) Mean Corpuscular Volume 92.3 fL (81-99) Mean Corpuscular Hemoglobin 32.0 pg (28-32) Mean Corpuscular Hemoglobin Concent 34.6 g/dL (31-35) Red Cell Distribution Width 13.0 % (11.7-14.4) Platelet Count 357 x10e3/uL (140-360) Neutrophils (%) (Auto) 47.9 % (38.7-80.0) Lymphocytes (%) (Auto) 39.4 % (18.0-39.1) Monocytes (%) (Auto) 9.6 % (4.4-11.3) Eosinophils (%) (Auto) 1.5 % (0.0-6.0) Basophils (%) (Auto) 0.7 % (0.0-1.0) Neutrophils # (Auto) 4.2 (2.1-6.9) Lymphocytes # (Auto) 3.4 (1.0-3.2) Monocytes # (Auto) 0.8 (0.2-0.8) Eosinophils # (Auto) 0.1 (0.0-0.4) Basophils # (Auto) 0.1 (0.0-0.1) Absolute Immature Granulocyte (auto 0.08 x10e3/uL (0-0.1) Prothrombin Time 12.6 seconds (11.9-14.5) Prothromb Time International Ratio 0.89 Activated Partial Thromboplast Time 29.7 seconds (23.8-35.5) Sodium Level 137 mmol/L (136-145) Potassium Level 3.9 mmol/L (3.5-5.1) Chloride Level 98 mmol/L (98-107) Carbon Dioxide Level 29 mmol/L (22-29) Anion Gap 13.9 mmol/L (8-16) Blood Urea Nitrogen 12 mg/dL (7-26) Creatinine 0.78 mg/dL (0.72-1.25) Estimat Glomerular Filtration Rate > 60 ML/MIN (60-) BUN/Creatinine Ratio 15 (6-25) Glucose Level 105 mg/dL (74-118) Calcium Level 10.1 mg/dL (8.4-10.2) Magnesium Level 1.4 MG/DL (1.3-2.1) Total Bilirubin 0.3 mg/dL (0.2-1.2) Aspartate Amino Transf (AST/SGOT) 65 IU/L (5-34) Alanine Aminotransferase (ALT/SGPT) 38 IU/L (0-55) Alkaline Phosphatase 64 IU/L (40-150) Creatine Kinase 213 IU/L (30-200) Creatine Kinase MB 2.00 ng/mL (0-5.0) Troponin I < 0.001 ng/mL (0-0.300) Total Protein 8.2 g/dL (6.5-8.1) Albumin 4.1 g/dL (3.5-5.0) Globulin 4.1 g/dL (2.3-3.5) Albumin/Globulin Ratio 1.0 (0.8-2.0) Valproic Acid (Depakene) Level 117 ug/mL (50-100) Lab results reviewed: Yes Imaging Imaging results reviewed: Yes Impressions Exam: Head CT without contrast History: Dizziness, headache Comparison studies: Brain MRI 05/03/2018 Technique: Axial images were obtained from the skull base to the vertex. Coronal and sagittal images reconstructed from the axial data. Dose modulation, iterative reconstruction, and/or weight based adjustment of the mA/kV was utilized to reduce the radiation dose to as low as reasonably achievable. Radiation dose: Total DLP: 921.4 mGy*cm. Estimated effective dose: DLP x 0.015 Intravenous contrast: None Findings: Scalp and bones: Postsurgical changes with prior right frontal and right parietal anita holes. No fracture or lytic or blastic lesion. Brain sulci: Appropriate for age. Ventricles: Normal in size and configuration. No hydrocephalus. Extra-axial spaces: No masses, no fluid collection. Parenchyma: Unchanged nonspecific physiologic calcifications in the globi pallidi. A 4 mm calcific density in the right frontal periventricular white matter corresponds to focal signal abnormality on the prior brain right 05/03/2018 and may be a small cavernous malformation or dystrophic calcification. The left hippocampus is asymmetrically smaller in volume consistent with known medial temporal sclerosis which is better visualized on the prior brain MRI. Sellar/suprasellar region: No abnormalities. Craniocervical junction: Patent foramen magnum. No Chiari one malformation. Included paranasal sinuses: Clear. Middle ear and mastoid cavities: Clear. Incidental findings: Atherosclerotic calcifications in the carotid siphons. IMPRESSION: No acute intracranial abnormalities. Chronic findings: 1. Left mesial temporal sclerosis. 2. Nonspecific physiologic calcifications in the globi pallidi. 3. Unchanged small right frontal dystrophic calcification or possibly cavernous malformation. 4. Surgical changes with prior right frontal and parietal anita holes. Signed by: Dr. Td Rebollar M.D. on 09/22/2019 3:39 PM EXAMINATION: CHEST SINGLE (PORTABLE) INDICATION: DIZZY COMPARISON: Chest radiograph 05/03/2018. FINDINGS: TUBES and LINES: None. LUNGS: Lungs are mildly hypoinflated. There is no evidence of pneumonia or pulmonary edema. PLEURA: No pleural effusion or pneumothorax. HEART AND MEDIASTINUM: The cardiomediastinal silhouette is unremarkable. BONES AND SOFT TISSUES: No acute osseous lesion. Soft tissues are unremarkable. UPPER ABDOMEN: No free air under the diaphragm. IMPRESSION: No acute thoracic abnormality. Signed by: Dr. Terrell Harper MD on 09/22/2019 3:36 PM Diagnostics Tests Diagnostic test(s) reviewed: Yes Procedures 12 Lead ECG Interpretation Construction Helper: Interpreted by ED physician Date: Sep 22, 2019 Time: 16:07 Rhythm: sinus rhythm Rate: normal QRS axis: normal ST segments normal: Yes T waves normal: Yes Clinical Impression: normal ECG Critical Care Time Subsequent provider I assumed direction of critical care for this patient from another provider of my specialty. Assessment & Plan Reassessment Reassessment DIZZY AND JOHNSON AFTER WALKING OUTSIDE IN HEAT - CHECK CBC, CHEM, CK, ECG, CT HEAD, [place] LEVEL - R/O CEREBRAL BLEED, DEHYDRATION WITH RHABDOMYOLYSIS, RENAL INSUFF, ELECTROLYTE ABNL, ELEV [place] LEVEL Assessment & Plan Final Impression: (1) Dehydration (2) Valproic acid toxicity Assessment & Plan DC HOME, HOLD TONIGHT'S DOSE OF DEPAKOTE, F/U WITH PCP AND NEURO TOMORROW Depart Disposition: HOME, SELF-CARE Last Vital Signs Date Time Temp Pulse Resp B/P (MAP) Pulse Ox O2 Delivery O2 Flow Rate FiO2 09/22/19 14:49 99.0 98 18 152/97 99 Home Meds Reported Medications [Perampanel] No Conflict Check, 2 MG PO BID 11/27/15 Glimepiride (GLIMEPIRIDE) 2 Mg Tablet, 4 MG PO BID, TAB 11/27/15 Gabapentin (GABAPENTIN) 100 Mg Capsule, 100 MG PO TID 11/27/15 [Atrovastatin] No Conflict Check, 20 MG PO HS 11/27/15 Pantoprazole Sodium* (PROTONIX) 40 Mg Tablet.dr, 40 MG PO DAILY, TAB 11/27/15 Divalproex Sodium (DIVALPROEX SODIUM ER) 500 Mg Tab.er.24h, 500 MG PO TID 11/27/15 Baclofen (BACLOFEN) 10 Mg Tablet, 10 MG PO TID, #90 TAB 11/27/15 Medications in the ED Sodium Chloride 1,000 ml @ 0 mls/hr Q0M STAT IV Last administered on 09/22/19at 15:57; Admin Dose 1,000 MLS/HR; Start 09/22/19 at 15:12; Stop 09/22/19 at 15:15; Status DC Sodium Chloride 1,000 ml @ 0 mls/hr Q0M STAT IV Last administered on 09/22/19at 15:57; Admin Dose 1,000 MLS/HR; Start 09/22/19 at 15:14; Stop 09/22/19 at 15:16; Status DC FRANSICO HERNANDEZ MD Sep 22, 2019 17:37
[2019-09-22 18:26] VITALS: BP 130/62
== END 2019-09-22 18:25 | disposition home or self-care (01) ==
LOC: ER 14:38
DX: R42 Dizziness and giddiness (principal); E86.0 Dehydration; T42.6X5A Adverse effect of other antiepileptic and sedative-hypnotic drugs, initial encounter; G40.909 Epilepsy, unspecified, not intractable, without status epilepticus; E78.5 Hyperlipidemia, unspecified; E11.9 Type 2 diabetes mellitus without complications
CPT/HCPCS: 36415; 70450; 71045; 80053; 80164; 81001; 82550; 82553; 83735; 84484; 85025; 85610; 85730; 87086; 99284; J7030; 93005

== ENCOUNTER 2019-10-25 12:19 | Emergency (ER) | payer MEDICARE, OTHER ==
[~2019-10-25] VITALS: Ht 162.6 cm; Wt 74.4 kg
--- NOTE | 2019-10-25 13:31 | Emergency Department Note ---
History of Present Illnes History of Present Illness Chief Complaint: Seizure History of Present Illness This is a 39 year old male arrives to the ED after having a seizure at 1 AM. Patient states he got a few doses of Keppra from an emergency department the past. The symptoms but has not followed up with his neurologist. 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 Any updates have been documented here. Past Medical History Recent Fever: No Clinical Suspicion of Infectio: No New/Unexplained Change in Ment: No Past Medical History: Diabetes, Seizure Disorder, Depression, Hyperlipedemia Other Medical History: Hyperlipidemia Past Surgical History: Cholecysctectomy Other Surgery: PORTACATH, NOW REMOVED. BRAIN SX. BRAIN SX (ANUERYSM) Social History Smoking Cessation: Unknown if ever smoked Alcohol Use: Social Other Last Tetanus: OOD Review of Systems Review of Systems Constitutional: Reports no symptoms EENTM: Reports no symptoms Cardiovascular: Reports no symptoms Respiratory: Reports no symptoms Gastrointestinal: Reports no symptoms Genitourinary: Reports no symptoms Musculoskeletal: Reports no symptoms Integumentary: Reports no symptoms Neurological: Reports as per HPI Psychological: Reports no symptoms Endocrine: Reports no symptoms Hematological/Lymphatic: Reports no symptoms Physical Exam Related Data Allergies: Coded Allergies: hydrocodone (Verified Allergy, Unknown, Dizziness, 09/22/19) metformin (Verified Allergy, Unknown, 09/22/19) simvastatin (Verified Allergy, Unknown, WEAKNESS, 09/22/19) Triage Vital Signs Vital Signs Date Time Temp Pulse Resp B/P (MAP) Pulse Ox O2 Delivery O2 Flow Rate FiO2 10/25/19 12:44 98.7 91 18 139/88 100 Room Air Vital signs reviewed: Yes Physical Exam CONSTITUTIONAL Constitutional: Present well-developed, Present well-nourished HENT HENT: Present normocephalic, Present atraumatic, Present oropharynx clear/aaliyah st, Present nose normal HENT L/R: Present left ext ear normal, Present right ext ear normal EYES Eyes: Reports PERRL, Reports conjunctivae normal NECK Neck: Present ROM normal PULMONARY Pulmonary: Present effort normal, Present breath sounds normal CARDIOVASCULAR Cardiovascular: Present regular rhythm, Present heart sounds normal, Present capillary refill normal, Present normal rate GASTROINTESTINAL Abdominal: Present soft, Present nontender, Present bowel sounds normal GENITOURINARY Genitourinary: Present exam deferred SKIN Skin: Present warm, Present dry MUSCULOSKELETAL Musculoskeletal: Present ROM normal NEUROLOGICAL Neurological: Present alert, Present oriented x 3, Present no gross motor or sensory deficits PSYCHOLOGICAL Psychological: Present mood/affect normal, Present judgement normal Assessment & Plan Medical Decision Making MDM 31-year-old male brought to the ED after having a breakthrough seizure at 1 AM. Patient has had a recent ER visit for same complaints at [facility] and was seen at [place] yesterday for a seizure. Patient only on Depakote, prior levels sown he's been supratherapeutic. Patient informed of this. Patient hasn't getting Keppra intermittently from the emergency department. Patient denied any trauma with a stroke at 1 AM and states his mother witnessed it. I encouraged neurology follow-up to tweak his antiepileptics. Patient agreed to do so. Patient states he has dental follow-up tomorrow is unable to see a neurologist tomorrow. Assessment & Plan Final Impression: (1) Seizure disorder Depart Disposition: HOME, SELF-CARE Last Vital Signs Date Time Temp Pulse Resp B/P (MAP) Pulse Ox O2 Delivery O2 Flow Rate FiO2 10/25/19 12:44 98.7 91 18 139/88 100 Room Air Home Meds Reported Medications [Perampanel] No Conflict Check, 2 MG PO BID 11/27/15 Glimepiride (GLIMEPIRIDE) 2 Mg Tablet, 4 MG PO BID, TAB 11/27/15 Gabapentin (GABAPENTIN) 100 Mg Capsule, 100 MG PO TID 11/27/15 [Atrovastatin] No Conflict Check, 20 MG PO HS 11/27/15 Pantoprazole Sodium* (PROTONIX) 40 Mg Tablet.dr, 40 MG PO DAILY, TAB 11/27/15 Divalproex Sodium (DIVALPROEX SODIUM ER) 500 Mg Tab.er.24h, 500 MG PO TID 11/27/15 Baclofen (BACLOFEN) 10 Mg Tablet, 10 MG PO TID, #90 TAB 11/27/15 KRISTEN MEJÍA, DO Oct 25, 2019 13:31
[2019-10-25 14:19] LABS: AMPHETAMINES SCREEN,URINE NEGATIVE (NEGATIVE); BENZODIAZEPINES SCREEN,URINE NEGATIVE (NEGATIVE); PHENCYCLIDINE SCREEN,URINE NEGATIVE (NEGATIVE)
--- NOTE | 2019-10-25 15:38 | NUR ---
Pt resting quietly, awaiting further orders/disposition.
--- NOTE | 2019-10-25 16:20 | NUR ---
Pt verbalized understanding of ED discharge and follow up care. Pt showed this RN his medications, valproic acid and fembryq (?)
[2019-10-25 16:34] VITALS: BP 140/78
== END 2019-10-25 16:40 | disposition home or self-care (01) ==
LOC: ER 16:35
DX: G40.909 Epilepsy, unspecified, not intractable, without status epilepticus (principal); E11.9 Type 2 diabetes mellitus without complications; E78.5 Hyperlipidemia, unspecified; F32.9 Major depressive disorder, single episode, unspecified
CPT/HCPCS: 80307; 99283

== ENCOUNTER 2020-06-12 10:05 | Emergency (ER) | payer MEDICARE, OTHER ==
[~2020-06-12] VITALS: Ht 162.6 cm; Wt 74.4 kg
[2020-06-12 10:32] LABS: BASOPHILS % 0.6 % (0.0-1.0); EOSINOPHILS # (AUTO) 0.1 (0.0-0.4); EOSINOPHILS % 1.9 % (0.0-6.0); HEMATOCRIT 33.9 % (38.2-49.6); HEMOGLOBIN 11.7 g/dL (14.0-18.0); LYMPHOCYTES # (AUTO) 2.2 (1.0-3.2); LYMPHOCYTES % 31.6 % (18.0-39.1); MEAN CORPUSCULAR HEMOGLOBIN 32.1 pg (28-32); MEAN CORPUSCULAR HGB CONC 34.5 g/dL (31-35); MEAN CORPUSCULAR VOLUME 93.1 fL (81-99); MONOCYTES # (AUTO) 0.7 (0.2-0.8); MONOCYTES % 9.7 % (4.4-11.3); NEUTROPHILS # (AUTO) 3.8 (2.1-6.9); NEUTROPHILS % 55.3 % (38.7-80.0); PLATELET COUNT 356 x10e3/uL (140-360); RED BLOOD COUNT 3.64 x10e6/uL (4.3-5.7); RED CELL DISTRIBUTION WIDTH 12.8 % (11.7-14.4)
[2020-06-12] MEDS ORDERED: SODIUM CHLORIDE 0.9% 1000ML 1,000 ML IV SCH (10:45)
[2020-06-12 10:58] LABS: ALANINE AMINOTRANSFERASE 23 IU/L (0-55); ALBUMIN 3.7 g/dL (3.5-5.0); ALKALINE PHOSPHATASE 51 IU/L (40-150); BLOOD UREA NITROGEN 12 mg/dL (7-26); BUN/CREATININE RATIO 15 (6-25); CALCIUM 9.2 mg/dL (8.4-10.2); CARBON DIOXIDE 27 mmol/L (22-29); CHLORIDE 101 mmol/L (98-107); CREATININE, SERUM 0.78 mg/dL (0.72-1.25); EST GLOMERULAR FILTRATION RATE > 60 ML/MIN (60-); GLUCOSE 141 mg/dL (74-118); SODIUM 137 mmol/L (136-145)
[2020-06-12 11:00] LABS: AMPHETAMINES SCREEN,URINE NEGATIVE (NEGATIVE); BENZODIAZEPINES SCREEN,URINE NEGATIVE (NEGATIVE); CLARITY,URINE CLEAR (CLEAR); COLOR,URINE YELLOW (YELLOW); KETONES,URINE NEGATIVE (NEGATIVE); LEUKOCYTE ESTERASE ,URINE NEGATIVE (NEGATIVE); NITRITE,URINE NEGATIVE (NEGATIVE); PHENCYCLIDINE SCREEN,URINE NEGATIVE (NEGATIVE); PROTEIN,URINE DIPSTICK NEGATIVE (NEGATIVE); URINE UROBILINOGEN 0.2 mg/dL (0.2 - 1)
[2020-06-12 11:08] LABS: EPITHELIAL CELLS,URINE FEW /LPF; MUCUS,URINE MODERATE (RARE); RBC,URINE 0-5 /HPF (0-5); WBC,URINE (MAN) 0-5 /HPF (0-5)
[2020-06-12 11:23] LABS: SALICYLATE < 5.0 mg/dL (0-30)
[2020-06-12 11:32] LABS: FREE THYROXINE INDEX 1.4616 (1.4-3.8); THYROID STIMULATING HORMONE 1.431 uIU/mL (0.350-4.940); VALPROIC ACID 95 ug/mL (50-100)
[2020-06-12 12:52] VITALS: BP 135/68
== END 2020-06-12 13:00 | disposition home or self-care (01) ==
LOC: ER 10:11
DX: R42 Dizziness and giddiness (principal); E11.65 Type 2 diabetes mellitus with hyperglycemia; I10 Essential (primary) hypertension; G40.909 Epilepsy, unspecified, not intractable, without status epilepticus; E78.5 Hyperlipidemia, unspecified; F32.9 Major depressive disorder, single episode, unspecified
CPT/HCPCS: 36415; 70450; 80053; 80164; 80307; 80320; 80329 ×2; 81001; 82542; 84436; 84443; 84479; 85025; 93005; 99284; J7030

== ENCOUNTER 2020-07-19 15:29 | Emergency (ER) | payer MEDICARE, OTHER ==
[~2020-07-19] VITALS: Ht 162.6 cm; Wt 74.4 kg
[2020-07-19] MEDS ORDERED: SODIUM CHLORIDE 0.9% 1000ML 1,000 ML IV STA (15:59)
[2020-07-19] MEDS ORDERED: MECLIZINE HCL 12.5 MG TAB PO NR (16:00)
[2020-07-19] MEDS ORDERED: ONDANSETRON HCL INJ 2MG/ML 2ML 2 MG/ML VIAL IV NR (16:00)
[2020-07-19] MEDS ORDERED: MIDODRINE 2.5 MG TAB PO NR (16:15)
[2020-07-19 16:20] LABS: BASOPHILS # (AUTO) 0.1 (0.0-0.1); BASOPHILS % 0.7 % (0.0-1.0); EOSINOPHILS # (AUTO) 0.1 (0.0-0.4); EOSINOPHILS % 1.4 % (0.0-6.0); HEMATOCRIT 37.1 % (38.2-49.6); HEMOGLOBIN 12.8 g/dL (14.0-18.0); LYMPHOCYTES # (AUTO) 2.7 (1.0-3.2); LYMPHOCYTES % 33.1 % (18.0-39.1); MEAN CORPUSCULAR HEMOGLOBIN 31.8 pg (28-32); MEAN CORPUSCULAR HGB CONC 34.5 g/dL (31-35); MEAN CORPUSCULAR VOLUME 92.1 fL (81-99); MONOCYTES # (AUTO) 0.7 (0.2-0.8); MONOCYTES % 8.8 % (4.4-11.3); NEUTROPHILS # (AUTO) 4.4 (2.1-6.9); PLATELET COUNT 366 x10e3/uL (140-360); RED BLOOD COUNT 4.03 x10e6/uL (4.3-5.7); RED CELL DISTRIBUTION WIDTH 12.6 % (11.7-14.4)
[2020-07-19 16:43] LABS: ALANINE AMINOTRANSFERASE 59 IU/L (0-55); ALBUMIN 4.1 g/dL (3.5-5.0); ALBUMIN/GLOBULIN RATIO 0.9 (0.8-2.0); ALKALINE PHOSPHATASE 83 IU/L (40-150); ANION GAP 18.2 mmol/L (8-16); BLOOD UREA NITROGEN 13 mg/dL (7-26); BUN/CREATININE RATIO 16 (6-25); CALCIUM 9.7 mg/dL (8.4-10.2); CARBON DIOXIDE 28 mmol/L (22-29); CHLORIDE 95 mmol/L (98-107); CREATINE KINASE 410 IU/L (30-200); CREATININE, SERUM 0.79 mg/dL (0.72-1.25); EST GLOMERULAR FILTRATION RATE > 60 ML/MIN (60-); GLUCOSE 183 mg/dL (74-118); MAGNESIUM 1.5 MG/DL (1.3-2.1); POTASSIUM 4.2 mmol/L (3.5-5.1); SODIUM 137 mmol/L (136-145)
[2020-07-19 16:58] LABS: DIGOXIN 0.66 ng/mL (0.8-2.0)
== END 2020-07-19 18:30 | disposition home or self-care (01) ==
LOC: ER 15:44
DX: R42 Dizziness and giddiness (principal); T42.6X5A Adverse effect of other antiepileptic and sedative-hypnotic drugs, initial encounter; G40.909 Epilepsy, unspecified, not intractable, without status epilepticus; R94.31 Abnormal electrocardiogram [ECG] [EKG]; E78.5 Hyperlipidemia, unspecified
CPT/HCPCS: 36415; 80053; 80162; 80164; 82550; 82553; 83735; 84484; 85025; 93005; 99284; J2405; J7030; J8597

== ENCOUNTER 2020-07-25 06:45 | Emergency (ER) | payer MEDICARE, OTHER ==
[~2020-07-25] VITALS: Ht 162.6 cm; Wt 74.4 kg
== END 2020-07-25 07:34 | disposition home or self-care (01) ==
LOC: ER 07:14
DX: E11.65 Type 2 diabetes mellitus with hyperglycemia (principal); I10 Essential (primary) hypertension; E78.5 Hyperlipidemia, unspecified; G40.909 Epilepsy, unspecified, not intractable, without status epilepticus; F32.9 Major depressive disorder, single episode, unspecified
CPT/HCPCS: 36415; 82948; 99283

== ENCOUNTER 2020-12-29 12:37 | Emergency (ER) | payer MEDICARE ==
[~2020-12-29] VITALS: Ht 162.6 cm; Wt 74.4 kg
[2020-12-29] MEDS ORDERED: DIPHENOXYLATE/ATROPINE TAB PO ONE (12:45)
[2020-12-29] MEDS ORDERED: LACTATED RINGER'S 1,000 ML INJ SCH (12:45)
[2020-12-29 13:41] LABS: BASOPHILS # (AUTO) 0.1 (0.0-0.1); BASOPHILS % 0.7 % (0.0-1.0); EOSINOPHILS # (AUTO) 0.2 (0.0-0.4); EOSINOPHILS % 1.8 % (0.0-6.0); HEMATOCRIT 38.1 % (38.2-49.6); HEMOGLOBIN 12.8 g/dL (14.0-18.0); LYMPHOCYTES % 30.6 % (18.0-39.1); MEAN CORPUSCULAR HEMOGLOBIN 30.5 pg (28-32); MEAN CORPUSCULAR HGB CONC 33.6 g/dL (31-35); MEAN CORPUSCULAR VOLUME 90.9 fL (81-99); MONOCYTES # (AUTO) 0.6 (0.2-0.8); MONOCYTES % 5.8 % (4.4-11.3); NEUTROPHILS # (AUTO) 5.9 (2.1-6.9); NEUTROPHILS % 60.8 % (38.7-80.0); PLATELET COUNT 354 x10e3/uL (140-360); RED BLOOD COUNT 4.19 x10e6/uL (4.3-5.7); RED CELL DISTRIBUTION WIDTH 13.5 % (11.7-14.4)
[2020-12-29 14:18] LABS: ANION GAP 17.4 mmol/L (8-16); CALCIUM 9.9 mg/dL (8.4-10.2); CREATININE, SERUM 1.12 mg/dL (0.72-1.25); POTASSIUM 4.4 mmol/L (3.5-5.1)
[2020-12-29 14:19] LABS: BILIRUBIN,DIRECT 0.1 mg/dL (0.0-0.5)
== END 2020-12-29 17:56 | disposition home or self-care (01) ==
LOC: ER 12:51
DX: R19.7 Diarrhea, unspecified (principal); I10 Essential (primary) hypertension; E78.5 Hyperlipidemia, unspecified; G40.909 Epilepsy, unspecified, not intractable, without status epilepticus; F32.9 Major depressive disorder, single episode, unspecified; Z20.822 Contact with and (suspected) exposure to COVID-19
CPT/HCPCS: 36415; 80048; 80076; 83690; 85025; 99284; J7121; U0002

== ENCOUNTER 2021-04-15 21:42 | Emergency (ER) | payer MEDICARE ==
[~2021-04-15] VITALS: Ht 162.6 cm; Wt 67.6 kg
[2021-04-15 23:20] VITALS: BP 118/73
== END 2021-04-15 23:21 | disposition home or self-care (01) ==
LOC: ER 21:49
DX: S06.0X0A Concussion without loss of consciousness, initial encounter (principal); W08.XXXA Fall from other furniture, initial encounter; Y92.008 Other place in unspecified non-institutional (private) residence as the place of occurrence of the external cause; E11.9 Type 2 diabetes mellitus without complications; G40.909 Epilepsy, unspecified, not intractable, without status epilepticus; Z85.6 Personal history of leukemia
CPT/HCPCS: 70450; 99284

== ENCOUNTER 2021-04-21 11:21 | Emergency (ER) | payer MEDICARE ==
[~2021-04-21] VITALS: Ht 162.6 cm; Wt 67.1 kg
[2021-04-21] MEDS ORDERED: IBUPROFEN800 MG PO (13:50)
[2021-04-21] MEDS ORDERED: RITALIN10 MG PO (23:07)
== END 2021-04-21 14:22 | disposition home or self-care (01) ==
LOC: ER 13:40
DX: S20.229A Contusion of unspecified back wall of thorax, initial encounter (principal); G40.909 Epilepsy, unspecified, not intractable, without status epilepticus; E11.9 Type 2 diabetes mellitus without complications; W19.XXXA Unspecified fall, initial encounter; Z88.6 Allergy status to analgesic agent; Z88.8 Allergy status to other drugs, medicaments and biological substances; Z79.84 Long term (current) use of oral hypoglycemic drugs; Z79.899 Other long term (current) drug therapy; Z86.79 Personal history of other diseases of the circulatory system; Z85.6 Personal history of leukemia
CPT/HCPCS: 70450; 71101; 72072; 99283

== ENCOUNTER 2021-04-21 22:11 | Emergency (ER) | payer MEDICARE ==
[~2021-04-21] VITALS: Ht 162.6 cm; Wt 67.1 kg
[~2021-04-21 22:11] MED LIST changes: +IBUPROFEN800 MG PO
[2021-04-21] MEDS ORDERED: SODIUM CHLORIDE 0.9% 1000ML 1,000 ML IV STA (22:16)
[2021-04-21] MEDS ORDERED: RITALIN10 MG PO (23:07)
== END 2021-04-21 23:20 | disposition home or self-care (01) ==
LOC: ER 22:16
DX: R40.0 Somnolence (principal); E11.9 Type 2 diabetes mellitus without complications; G40.909 Epilepsy, unspecified, not intractable, without status epilepticus; Z88.6 Allergy status to analgesic agent; Z88.8 Allergy status to other drugs, medicaments and biological substances; Z79.84 Long term (current) use of oral hypoglycemic drugs
CPT/HCPCS: 99283

== ENCOUNTER 2021-05-31 09:19 | Emergency (ER) | payer MEDICARE ==
[~2021-05-31] VITALS: Ht 162.6 cm; Wt 67.1 kg
[~2021-05-31 09:19] MED LIST changes: +RITALIN10 MG PO
[2021-05-31] MEDS ORDERED: KETOROLAC TROMETHAMINE 60 MG/2 ML VIAL IM ONE (09:45)
[2021-05-31] MEDS ORDERED: ULTRAM50 MG PO (10:51)
[2021-05-31 10:54] VITALS: BP 121/81
== END 2021-05-31 10:58 | disposition home or self-care (01) ==
LOC: ER 09:44
DX: M94.0 Chondrocostal junction syndrome [Tietze] (principal); E11.9 Type 2 diabetes mellitus without complications; G40.909 Epilepsy, unspecified, not intractable, without status epilepticus; Z85.6 Personal history of leukemia
CPT/HCPCS: 71101; 99283; J1885

== ENCOUNTER 2021-07-01 10:28 | Emergency (ER) | payer MEDICARE ==
[~2021-07-01] VITALS: Ht 162.6 cm; Wt 67.1 kg
[~2021-07-01 10:28] MED LIST changes: +ULTRAM50 MG PO
== END 2021-07-01 14:58 | disposition home or self-care (01) ==
LOC: ER 10:31
DX: T38.3X1A Poisoning by insulin and oral hypoglycemic [antidiabetic] drugs, accidental (unintentional), initial encounter (principal); E11.9 Type 2 diabetes mellitus without complications; G40.909 Epilepsy, unspecified, not intractable, without status epilepticus; Z85.6 Personal history of leukemia
CPT/HCPCS: 99283

== ENCOUNTER 2021-08-31 12:19 | Emergency (ER) | payer MEDICARE ==
[~2021-08-31] VITALS: Ht 162.6 cm; Wt 67.1 kg
[2021-08-31 13:05] LABS: BASOPHILS # (AUTO) 0.1 (0.0-0.1); BASOPHILS % 0.9 % (0.0-1.0); EOSINOPHILS # (AUTO) 0.1 (0.0-0.4); EOSINOPHILS % 1.8 % (0.0-6.0); HEMATOCRIT 32.6 % (38.2-49.6); HEMOGLOBIN 11.1 g/dL (14.0-18.0); LYMPHOCYTES # (AUTO) 2.3 (1.0-3.2); LYMPHOCYTES % 28.8 % (18.0-39.1); MEAN CORPUSCULAR HEMOGLOBIN 30.9 pg (28-32); MEAN CORPUSCULAR VOLUME 90.8 fL (81-99); MONOCYTES # (AUTO) 0.6 (0.2-0.8); MONOCYTES % 6.9 % (4.4-11.3); NEUTROPHILS # (AUTO) 4.9 (2.1-6.9); NEUTROPHILS % 61.1 % (38.7-80.0); PLATELET COUNT 297 x10e3/uL (140-360); RED BLOOD COUNT 3.59 x10e6/uL (4.3-5.7); RED CELL DISTRIBUTION WIDTH 13.6 % (11.7-14.4)
[2021-08-31 13:33] LABS: ALBUMIN 3.8 g/dL (3.5-5.0); ANION GAP 14.9 mmol/L (8-16); CALCIUM 8.8 mg/dL (8.4-10.2); CREATININE, SERUM 0.81 mg/dL (0.72-1.25); POTASSIUM 3.9 mmol/L (3.5-5.1)
[2021-08-31 13:43] LABS: CLARITY,URINE CLEAR (CLEAR); COLOR,URINE YELLOW (YELLOW); LEUKOCYTE ESTERASE ,URINE NEGATIVE (NEGATIVE); NITRITE,URINE NEGATIVE (NEGATIVE); PROTEIN,URINE DIPSTICK NEGATIVE (NEGATIVE)
[2021-08-31 13:44] LABS: KETONES,URINE NEGATIVE (NEGATIVE); URINE UROBILINOGEN 0.2 mg/dL (0.2 - 1)
[2021-08-31 13:53] LABS: BACTERIA,URINE RARE /HPF; RBC,URINE 0-5 /HPF (0-5); WBC,URINE (MAN) 0-5 /HPF (0-5)
== END 2021-08-31 16:04 | disposition home or self-care (01) ==
LOC: ER 12:50
DX: R53.1 Weakness (principal); E11.65 Type 2 diabetes mellitus with hyperglycemia; G40.909 Epilepsy, unspecified, not intractable, without status epilepticus; Z20.822 Contact with and (suspected) exposure to COVID-19; R94.31 Abnormal electrocardiogram [ECG] [EKG]; Z85.6 Personal history of leukemia
CPT/HCPCS: 36415; 71045; 80053; 81001; 83690; 84484; 85025; 93005; 99284; U0002

== ENCOUNTER 2022-01-10 05:09 | Emergency (ER) | payer MEDICARE, OTHER ==
[~2022-01-10] VITALS: Ht 162.6 cm; Wt 67.1 kg
[2022-01-10 06:02] LABS: BASOPHILS # (AUTO) 0.1 (0.0-0.1); BASOPHILS % 0.6 % (0.0-1.0); EOSINOPHILS # (AUTO) 0.3 (0.0-0.4); EOSINOPHILS % 3.5 % (0.0-6.0); HEMATOCRIT 36.8 % (38.2-49.6); HEMOGLOBIN 12.5 g/dL (14.0-18.0); LYMPHOCYTES # (AUTO) 1.9 (1.0-3.2); LYMPHOCYTES % 24.9 % (18.0-39.1); MEAN CORPUSCULAR HEMOGLOBIN 30.8 pg (28-32); MEAN CORPUSCULAR VOLUME 90.6 fL (81-99); MONOCYTES # (AUTO) 0.6 (0.2-0.8); MONOCYTES % 7.3 % (4.4-11.3); NEUTROPHILS # (AUTO) 4.9 (2.1-6.9); NEUTROPHILS % 63.1 % (38.7-80.0); PLATELET COUNT 304 x10e3/uL (140-360); RED BLOOD COUNT 4.06 x10e6/uL (4.3-5.7); RED CELL DISTRIBUTION WIDTH 12.4 % (11.7-14.4)
[2022-01-10 06:06] LABS: INR 0.91; PARTIAL THROMBOPLASTIN TIME 29.1 seconds (23.8-35.5); PROTHROMBIN TIME 13.1 seconds (11.9-14.5)
[2022-01-10 06:16] LABS: ALANINE AMINOTRANSFERASE 55 IU/L (0-55); ALBUMIN 4.2 g/dL (3.5-5.0); ALBUMIN/GLOBULIN RATIO 1.1 (0.8-2.0); ALKALINE PHOSPHATASE 182 IU/L (40-150); ANION GAP 17.1 mmol/L (8-16); BLOOD UREA NITROGEN 20 mg/dL (7-26); BUN/CREATININE RATIO 19 (6-25); CALCIUM 9.4 mg/dL (8.4-10.2); CARBON DIOXIDE 23 mmol/L (22-29); CHLORIDE 98 mmol/L (98-107); CREATINE KINASE 147 IU/L (30-200); CREATININE, SERUM 1.04 mg/dL (0.72-1.25); POTASSIUM 5.1 mmol/L (3.5-5.1); SODIUM 133 mmol/L (136-145)
[2022-01-10] MEDS ORDERED: SODIUM CHLORIDE 0.9% 1000ML 1,000 ML IV STA (06:27)
[2022-01-10 06:28] LABS: GLUCOSE 435 mg/dL (74-118)
[2022-01-10] MEDS ORDERED: INSULIN REGULAR, HUMAN 100 UNIT/1 ML IV ONE (06:30)
[2022-01-10] MEDS ORDERED: INSULIN REGULAR, HUMAN 100 UNIT/1 ML ONE (06:48)
== END 2022-01-10 08:04 | disposition home or self-care (01) ==
LOC: ER 05:18
DX: E11.65 Type 2 diabetes mellitus with hyperglycemia (principal); E86.0 Dehydration; G40.909 Epilepsy, unspecified, not intractable, without status epilepticus; Z91.14 Patient's other noncompliance with medication regimen; Z85.6 Personal history of leukemia
CPT/HCPCS: 36415; 80053; 80162; 82550; 82553; 82948; 83735; 84484; 85025; 85610; 85730; 93005; 99284; J1817; J7030

== ENCOUNTER 2022-01-21 23:30 | Emergency (ER) | payer MEDICARE ==
[~2022-01-21] VITALS: Ht 162.6 cm; Wt 67.1 kg
[2022-01-21] MEDS ORDERED: LACTATED RINGER'S 1,000 ML INJ ONE (23:45)
[2022-01-21 23:51] LABS: BASOPHILS # (AUTO) 0.1 (0.0-0.1); BASOPHILS % 0.8 % (0.0-1.0); EOSINOPHILS # (AUTO) 0.3 (0.0-0.4); EOSINOPHILS % 3.3 % (0.0-6.0); HEMATOCRIT 37.4 % (38.2-49.6); HEMOGLOBIN 12.4 g/dL (14.0-18.0); LYMPHOCYTES # (AUTO) 2.5 (1.0-3.2); LYMPHOCYTES % 27.7 % (18.0-39.1); MEAN CORPUSCULAR HEMOGLOBIN 30.7 pg (28-32); MEAN CORPUSCULAR HGB CONC 33.2 g/dL (31-35); MEAN CORPUSCULAR VOLUME 92.6 fL (81-99); MONOCYTES # (AUTO) 0.6 (0.2-0.8); MONOCYTES % 6.6 % (4.4-11.3); NEUTROPHILS # (AUTO) 5.5 (2.1-6.9); NEUTROPHILS % 61.3 % (38.7-80.0); PLATELET COUNT 300 x10e3/uL (140-360); RED BLOOD COUNT 4.04 x10e6/uL (4.3-5.7); RED CELL DISTRIBUTION WIDTH 12.7 % (11.7-14.4)
[2022-01-22 00:01] LABS: CLARITY,URINE CLEAR (CLEAR); COLOR,URINE YELLOW (YELLOW); KETONES,URINE NEGATIVE (NEGATIVE); LEUKOCYTE ESTERASE ,URINE NEGATIVE (NEGATIVE); NITRITE,URINE NEGATIVE (NEGATIVE); PROTEIN,URINE DIPSTICK NEGATIVE (NEGATIVE); URINE UROBILINOGEN 0.2 mg/dL (0.2 - 1)
[2022-01-22 00:04] LABS: BACTERIA,URINE RARE /HPF; EPITHELIAL CELLS,URINE FEW /LPF; WBC,URINE (MAN) 0-5 /HPF (0-5)
[2022-01-22 00:08] LABS: ANION GAP 17.7 mmol/L (8-16); CALCIUM 9.9 mg/dL (8.4-10.2); CREATININE, SERUM 1.1 mg/dL (0.72-1.25); POTASSIUM 4.7 mmol/L (3.5-5.1)
[2022-01-22] MEDS ORDERED: INSULIN REGULAR, HUMAN 100 UNIT/1 ML IV ONE (00:30)
[2022-01-22 01:33] VITALS: BP 125/67
== END 2022-01-22 01:49 | disposition home or self-care (01) ==
LOC: ER 23:51
DX: R55 Syncope and collapse (principal); E11.65 Type 2 diabetes mellitus with hyperglycemia; G40.909 Epilepsy, unspecified, not intractable, without status epilepticus; Z85.6 Personal history of leukemia
CPT/HCPCS: 36415; 70450; 71045; 72100; 72125; 73090; 80053; 81001; 82948; 85025; 99284; J1817; J7121

== ENCOUNTER 2022-05-05 08:48 | Emergency (ER) | payer MEDICARE, OTHER ==
[~2022-05-05] VITALS: Ht 162.6 cm; Wt 67.1 kg
[2022-05-05] MEDS ORDERED: SODIUM CHLORIDE 0.9% 1000ML 1,000 ML IV SCH (09:00)
[2022-05-05] MEDS ORDERED: INSULIN REGULAR, HUMAN 100 UNIT/1 ML IV ONE (09:00)
[2022-05-05 09:10] LABS: BASOPHILS % 0.6 % (0.0-1.0); EOSINOPHILS # (AUTO) 0.1 (0.0-0.4); HEMATOCRIT 36.5 % (38.2-49.6); HEMOGLOBIN 12.3 g/dL (14.0-18.0); LYMPHOCYTES # (AUTO) 1.8 (1.0-3.2); LYMPHOCYTES % 25.3 % (18.0-39.1); MEAN CORPUSCULAR HEMOGLOBIN 31.1 pg (28-32); MEAN CORPUSCULAR HGB CONC 33.7 g/dL (31-35); MEAN CORPUSCULAR VOLUME 92.2 fL (81-99); MONOCYTES # (AUTO) 0.5 (0.2-0.8); MONOCYTES % 6.4 % (4.4-11.3); NEUTROPHILS # (AUTO) 4.6 (2.1-6.9); NEUTROPHILS % 65.3 % (38.7-80.0); PLATELET COUNT 273 x10e3/uL (140-360); RED BLOOD COUNT 3.96 x10e6/uL (4.3-5.7); RED CELL DISTRIBUTION WIDTH 11.9 % (11.7-14.4)
[2022-05-05 09:40] LABS: ALBUMIN 3.8 g/dL (3.5-5.0); ALBUMIN/GLOBULIN RATIO 0.8 (0.8-2.0); ANION GAP 17.4 mmol/L (8-16); CREATININE, SERUM 1.18 mg/dL (0.72-1.25); POTASSIUM 4.4 mmol/L (3.5-5.1)
== END 2022-05-05 10:41 | disposition home or self-care (01) ==
LOC: ER 08:52
DX: E11.65 Type 2 diabetes mellitus with hyperglycemia (principal); G40.909 Epilepsy, unspecified, not intractable, without status epilepticus; Z85.6 Personal history of leukemia
CPT/HCPCS: 36415; 80053; 82948; 85025; 99283; J1817; J7030

== ENCOUNTER 2022-05-28 09:36 | Emergency (ER) | payer MEDICARE, OTHER ==
[~2022-05-28] VITALS: Ht 162.6 cm; Wt 67.1 kg
[2022-05-28] MEDS ORDERED: SODIUM CHLORIDE 0.9% 1000ML 1,000 ML IV STA (09:48)
[2022-05-28] MEDS ORDERED: INSULIN REGULAR, HUMAN 100 UNIT/1 ML IV ONE ×2 (10:00→10:15)
[2022-05-28 10:12] LABS: EOSINOPHILS % 2.3 % (0.0-6.0); HEMATOCRIT 37.9 % (38.2-49.6); HEMOGLOBIN 12.1 g/dL (14.0-18.0); LYMPHOCYTES % 24.5 % (18.0-39.1); MEAN CORPUSCULAR HEMOGLOBIN 30.2 pg (28-32); MEAN CORPUSCULAR HGB CONC 31.9 g/dL (31-35); MEAN CORPUSCULAR VOLUME 94.5 fL (81-99); MONOCYTES % 6.2 % (4.4-11.3); NEUTROPHILS % 65.7 % (38.7-80.0); PLATELET COUNT 309 x10e3/uL (140-360); RED BLOOD COUNT 4.01 x10e6/uL (4.3-5.7); RED CELL DISTRIBUTION WIDTH 12.3 % (11.7-14.4)
[2022-05-28 10:13] LABS: BASOPHILS % 0.6 % (0.0-1.0); EOSINOPHILS # (AUTO) 0.2 (0.0-0.4); LYMPHOCYTES # (AUTO) 1.7 (1.0-3.2); MONOCYTES # (AUTO) 0.4 (0.2-0.8); NEUTROPHILS # (AUTO) 4.5 (2.1-6.9)
[2022-05-28 10:32] LABS: ALANINE AMINOTRANSFERASE 58 IU/L (0-55); ALBUMIN 3.7 g/dL (3.5-5.0); ALBUMIN/GLOBULIN RATIO 0.8 (0.8-2.0); ALKALINE PHOSPHATASE 137 IU/L (40-150); ANION GAP 15.8 mmol/L (8-16); BLOOD UREA NITROGEN 22 mg/dL (7-26); BUN/CREATININE RATIO 19 (6-25); CALCIUM 9.1 mg/dL (8.4-10.2); CARBON DIOXIDE 21 mmol/L (22-29); CHLORIDE 99 mmol/L (98-107); CREATINE KINASE 248 IU/L (30-200); CREATININE, SERUM 1.16 mg/dL (0.72-1.25); MAGNESIUM 1.6 MG/DL (1.3-2.1); POTASSIUM 4.8 mmol/L (3.5-5.1); SODIUM 131 mmol/L (136-145)
[2022-05-28 10:35] LABS: GLUCOSE 401 mg/dL (74-118)
[2022-05-28] MEDS ORDERED: ONDANSETRON HCL INJ 2MG/ML 2ML 2 MG/ML VIAL ONE (11:10)
[2022-05-28 13:44] LABS: CLARITY,URINE CLEAR (CLEAR); COLOR,URINE YELLOW (YELLOW); KETONES,URINE NEGATIVE (NEGATIVE); LEUKOCYTE ESTERASE ,URINE NEGATIVE (NEGATIVE); NITRITE,URINE NEGATIVE (NEGATIVE); PROTEIN,URINE DIPSTICK NEGATIVE (NEGATIVE); URINE UROBILINOGEN 0.2 mg/dL (0.2 - 1)
[2022-05-28 13:54] LABS: BACTERIA,URINE FEW /HPF; EPITHELIAL CELLS,URINE RARE /LPF; RBC,URINE 0-5 /HPF (0-5); WBC,URINE (MAN) 0-5 /HPF (0-5); YEAST,URINE FEW
[2022-05-28] MEDS ORDERED: ONDANSETRON HCL INJ 2MG/ML 2ML 2 MG/ML VIAL IV STA (14:06)
[2022-05-28 14:29] VITALS: BP 140/76
== END 2022-05-28 17:18 | disposition home or self-care (01) ==
LOC: ER 09:46
DX: E11.65 Type 2 diabetes mellitus with hyperglycemia (principal); E03.9 Hypothyroidism, unspecified; G40.909 Epilepsy, unspecified, not intractable, without status epilepticus; Z20.822 Contact with and (suspected) exposure to COVID-19; R94.31 Abnormal electrocardiogram [ECG] [EKG]; Z85.6 Personal history of leukemia
CPT/HCPCS: 0223U; 36415; 71045; 80053; 80162; 81001; 82550; 82553; 82948; 83735; 84484; 85025; 93005; 99284; J1817; J2405; J7030

== ENCOUNTER 2022-07-03 07:33 | Emergency (ER) | payer MEDICARE, OTHER ==
[~2022-07-03] VITALS: Ht 162.6 cm; Wt 67.1 kg
[2022-07-03] MEDS ORDERED: METHOCARBAMOL500 MG PO (07:54)
== END 2022-07-03 08:00 | disposition home or self-care (01) ==
LOC: ER 07:38
DX: M54.50 Low back pain, unspecified (principal); G89.29 Other chronic pain; E11.9 Type 2 diabetes mellitus without complications; E03.9 Hypothyroidism, unspecified; G40.909 Epilepsy, unspecified, not intractable, without status epilepticus; Z85.6 Personal history of leukemia
CPT/HCPCS: 99282

== ENCOUNTER 2022-09-02 10:08 | Emergency (ER) | payer OTHER, MEDICARE ==
[~2022-09-02] VITALS: Ht 172.7 cm; Wt 79.4 kg
[~2022-09-02 10:08] MED LIST changes: +METHOCARBAMOL500 MG PO
[2022-09-02 11:22] LABS: BASOPHILS # (AUTO) 0.1 (0.0-0.1); BASOPHILS % 0.7 % (0.0-1.0); EOSINOPHILS # (AUTO) 0.2 (0.0-0.4); EOSINOPHILS % 2.1 % (0.0-6.0); HEMATOCRIT 38.2 % (38.2-49.6); HEMOGLOBIN 13.6 g/dL (14.0-18.0); LYMPHOCYTES % 21.6 % (18.0-39.1); MEAN CORPUSCULAR HEMOGLOBIN 31.3 pg (28-32); MEAN CORPUSCULAR HGB CONC 35.6 g/dL (31-35); MONOCYTES # (AUTO) 0.6 (0.2-0.8); NEUTROPHILS # (AUTO) 6.5 (2.1-6.9); NEUTROPHILS % 69.2 % (38.7-80.0); PLATELET COUNT 247 x10e3/uL (140-360); RED BLOOD COUNT 4.34 x10e6/uL (4.3-5.7); RED CELL DISTRIBUTION WIDTH 13.1 % (11.7-14.4)
[2022-09-02 11:35] LABS: ALBUMIN/GLOBULIN RATIO 0.8 (0.8-2.0); ANION GAP 14.8 mmol/L (8-16); CALCIUM 9.4 mg/dL (8.4-10.2); CREATININE, SERUM 1.27 mg/dL (0.72-1.25); POTASSIUM 4.8 mmol/L (3.5-5.1)
[2022-09-02] MEDS ORDERED: SODIUM CHLORIDE 0.9% 1000ML 1,000 ML IV ONE (12:30)
[2022-09-02 14:26] VITALS: BP 139/83; PULSE 74; RESP 17; TEMP 98.4; O2SAT 98
== END 2022-09-02 14:27 | disposition home or self-care (01) ==
LOC: ER 10:40
DX: R42 Dizziness and giddiness (principal); E11.65 Type 2 diabetes mellitus with hyperglycemia; E03.9 Hypothyroidism, unspecified; G40.909 Epilepsy, unspecified, not intractable, without status epilepticus
CPT/HCPCS: 36415; 80053; 82948; 83036; 84484; 85025; 93005; 99284; J7030

== ENCOUNTER 2022-09-20 01:05 | Emergency (ER) | payer MEDICARE ==
[~2022-09-20] VITALS: Ht 162.6 cm; Wt 68.0 kg
[2022-09-20 02:53] VITALS: BP 128/84; PULSE 71; RESP 17; TEMP 98.5; O2SAT 99
== END 2022-09-20 02:55 | disposition home or self-care (01) ==
LOC: ER 01:19
DX: F41.9 Anxiety disorder, unspecified (principal); E11.9 Type 2 diabetes mellitus without complications; E03.9 Hypothyroidism, unspecified; G40.909 Epilepsy, unspecified, not intractable, without status epilepticus; Z85.6 Personal history of leukemia
CPT/HCPCS: 99283

== ENCOUNTER 2024-01-21 13:34 | Emergency (ER) | payer MEDICARE ==
[~2024-01-21] VITALS: Ht 162.6 cm; Wt 68.0 kg
[~2024-01-21 13:34] MED LIST changes: +CEFPODOXIME PR200 MG PO
[2024-01-21 13:40] VITALS: PULSE 95; RESP 17; TEMP 97.5
[2024-01-21] MEDS ORDERED: HYDROCODONE/APAP 7.5MG-325MG 1 EA TAB PO ONE (14:30)
[2024-01-21] MEDS: KETOROLAC TROMETHAMINE 60 MG/2 ML VIAL IM ONE (14:35)
[2024-01-21 15:15] VITALS: BP 144/83; PULSE 87; RESP 18; TEMP 98.3; O2SAT 98
== END 2024-01-21 15:19 | disposition home or self-care (01) ==
LOC: ER 13:46
DX: M79.651 Pain in right thigh (principal); E11.9 Type 2 diabetes mellitus without complications; E03.9 Hypothyroidism, unspecified; G40.909 Epilepsy, unspecified, not intractable, without status epilepticus; Z85.6 Personal history of leukemia; Z86.79 Personal history of other diseases of the circulatory system
CPT/HCPCS: 99283; J1885

== ENCOUNTER 2024-03-28 14:51 | Emergency (ER) | payer MEDICARE ==
[~2024-03-28] VITALS: Ht 162.6 cm; Wt 68.0 kg
[2024-03-28 16:00] LABS: BASOPHILS # (AUTO) 0.1 (0.0-0.1); BASOPHILS % 0.7 % (0.0-1.0); EOSINOPHILS # (AUTO) 0.1 (0.0-0.4); EOSINOPHILS % 1.5 % (0.0-6.0); HEMOGLOBIN 12.3 g/dL (14.0-18.0); LYMPHOCYTES # (AUTO) 1.9 (1.0-3.2); LYMPHOCYTES % 21.8 % (18.0-39.1); MEAN CORPUSCULAR HEMOGLOBIN 30.8 pg (28-32); MEAN CORPUSCULAR HGB CONC 34.2 g/dL (31-35); MEAN CORPUSCULAR VOLUME 90.2 fL (81-99); MONOCYTES # (AUTO) 0.4 (0.2-0.8); NEUTROPHILS # (AUTO) 6.2 (2.1-6.9); NEUTROPHILS % 70.5 % (38.7-80.0); PLATELET COUNT 311 x10e3/uL (140-360); RED BLOOD COUNT 3.99 x10e6/uL (4.3-5.7); RED CELL DISTRIBUTION WIDTH 12.8 % (11.7-14.4); WHITE BLOOD COUNT 8.79 x10e3/uL (4.8-10.8)
[2024-03-28 16:12] LABS: ALBUMIN/GLOBULIN RATIO 1.1 (0.8-2.0); ANION GAP 14.5 mmol/L (8-16); BILIRUBIN,TOTAL 0.2 mg/dL (0.2-1.2); CALCIUM 9.8 mg/dL (8.4-10.2); COLOR,URINE YELLOW (YELLOW); CREATININE, SERUM 1.34 mg/dL (0.72-1.25); POTASSIUM 4.5 mmol/L (3.5-5.1); TOTAL PROTEIN 7.7 g/dL (6.5-8.1)
[2024-03-28 16:13] LABS: CLARITY,URINE CLEAR (CLEAR)
[2024-03-28 16:14] LABS: LEUKOCYTE ESTERASE ,URINE NEGATIVE (NEGATIVE); NITRITE,URINE NEGATIVE (NEGATIVE); PH,URINE 6 (5 - 7)
[2024-03-28 16:15] LABS: BILIRUBIN,URINE NEGATIVE (NEGATIVE); GLUCOSE, URINE 500 (NEGATIVE); KETONES,URINE NEGATIVE (NEGATIVE); PROTEIN,URINE DIPSTICK NEGATIVE (NEGATIVE); URINE UROBILINOGEN 0.2 mg/dL (0.2 - 1)
[2024-03-28] MEDS: SODIUM CHLORIDE 0.9% 1000ML 1,000 ML IV SCH (16:15)
[2024-03-28] MEDS: INSULIN REGULAR, HUMAN 100 UNIT/1 ML IV ONE (16:17)
[2024-03-28 16:19] LABS: RBC,URINE 0-5 /HPF (0-5); WBC,URINE (MAN) 0-5 /HPF (0-5)
[2024-03-28 16:24] VITALS: PULSE 89; RESP 20; TEMP 98.9; O2SAT 100
== END 2024-03-28 17:11 | disposition home or self-care (01) ==
LOC: ER 15:08
DX: R50.9 Fever, unspecified (principal); E11.65 Type 2 diabetes mellitus with hyperglycemia; R53.1 Weakness; E03.9 Hypothyroidism, unspecified; G40.909 Epilepsy, unspecified, not intractable, without status epilepticus; Z85.6 Personal history of leukemia
CPT/HCPCS: 36415; 71045; 80053; 81001; 82948; 84484; 85025; 99284; J7030

== ENCOUNTER 2024-04-05 15:09 | Emergency (ER) | payer MEDICARE ==
[~2024-04-05] VITALS: Ht 162.6 cm; Wt 59.0 kg
[2024-04-05 15:10] VITALS: TEMP 98.4
[2024-04-05 16:15] LABS: BASOPHILS # (AUTO) 0.1 (0.0-0.1); BASOPHILS % 0.7 % (0.0-1.0); EOSINOPHILS # (AUTO) 0.1 (0.0-0.4); EOSINOPHILS % 0.9 % (0.0-6.0); HEMATOCRIT 42.4 % (38.2-49.6); HEMOGLOBIN 14.3 g/dL (14.0-18.0); LYMPHOCYTES % 23.8 % (18.0-39.1); MEAN CORPUSCULAR HGB CONC 33.7 g/dL (31-35); MEAN CORPUSCULAR VOLUME 91.8 fL (81-99); MONOCYTES # (AUTO) 0.4 (0.2-0.8); MONOCYTES % 4.9 % (4.4-11.3); NEUTROPHILS # (AUTO) 5.9 (2.1-6.9); NEUTROPHILS % 69.3 % (38.7-80.0); PLATELET COUNT 340 x10e3/uL (140-360); RED BLOOD COUNT 4.62 x10e6/uL (4.3-5.7); WHITE BLOOD COUNT 8.44 x10e3/uL (4.8-10.8)
[2024-04-05] MEDS: MECLIZINE HCL 12.5 MG TAB PO ONE (16:27)
[2024-04-05] MEDS: SODIUM CHLORIDE 0.9% 1000ML 1,000 ML IV ONE (16:27)
[2024-04-05 16:33] LABS: ALBUMIN 4.7 g/dL (3.5-5.0); ALBUMIN/GLOBULIN RATIO 1.1 (0.8-2.0); ANION GAP 17.2 mmol/L (8-16); BILIRUBIN,TOTAL 0.3 mg/dL (0.2-1.2); CALCIUM 9.6 mg/dL (8.4-10.2); CREATININE, SERUM 1.13 mg/dL (0.72-1.25); POTASSIUM 4.2 mmol/L (3.5-5.1); TOTAL PROTEIN 8.9 g/dL (6.5-8.1)
[2024-04-05 16:36] LABS: CORONAVIRUS COVID-19 AG NEGATIVE (NEGATIVE); INFLUENZA A AG NEGATIVE (NEGATIVE); INFLUENZA B AG NEGATIVE (NEGATIVE)
[2024-04-05 18:00] VITALS: PULSE 75; RESP 16; O2SAT 100
[2024-04-05] MEDS ORDERED: MECLIZINE HCL25 MG PO (18:03)
== END 2024-04-05 18:43 | disposition home or self-care (01) ==
LOC: ER 15:20
DX: R42 Dizziness and giddiness (principal); E11.65 Type 2 diabetes mellitus with hyperglycemia; E78.5 Hyperlipidemia, unspecified; E03.9 Hypothyroidism, unspecified; G40.909 Epilepsy, unspecified, not intractable, without status epilepticus; F32.A Depression, unspecified; Z85.6 Personal history of leukemia; Z86.79 Personal history of other diseases of the circulatory system
CPT/HCPCS: 36415; 70450; 80053; 84484; 85025; 87428; 93005; 99284; J7030; J8597

== ENCOUNTER 2025-02-09 22:02 | Emergency (ER) | payer MEDICARE ==
[~2025-02-09] VITALS: Ht 162.6 cm; Wt 68.0 kg
[~2025-02-09 22:02] MED LIST changes: +MECLIZINE HCL25 MG PO
[2025-02-09 23:16] LABS: BASOPHILS % 0.9 % (0.0-1.0); EOSINOPHILS % 2.9 % (0.0-6.0); LYMPHOCYTES % 33.6 % (18.0-39.1); MONOCYTES % 8.5 % (4.4-11.3); NEUTROPHILS % 53.8 % (38.7-80.0); RED CELL DISTRIBUTION WIDTH 12.3 % (11.7-14.4)
[2025-02-09 23:33] LABS: EST GLOMERULAR FILTRATION RATE 79.0 ML/MIN (>=60)
[2025-02-09 23:39] LABS: AMPHETAMINES SCREEN,URINE NEGATIVE (NEGATIVE); CANNABINOIDS SCREEN,URINE NEGATIVE (NEGATIVE); COCAINE SCREEN,URINE NEGATIVE (NEGATIVE); METHADONE SCREEN, URINE NEGATIVE (NEGATIVE); OPIATES SCREEN,URINE NEGATIVE (NEGATIVE)
[2025-02-10] MEDS ORDERED: SODIUM CHLORIDE 0.9% 100 ML ONE (00:24)
[2025-02-10] MEDS ORDERED: LEVETIRACETAM 500 MG/5 ML VIAL IV ONE (00:24)
[2025-02-10] MEDS: LEVETIRACETAM 1000MG/100ML IV 100 ML IV STA (00:29)
[2025-02-10 02:05] VITALS: PULSE 62; RESP 17; TEMP 98.4
[2025-02-10 02:15] VITALS: BP 134/90; PULSE 62; RESP 17; TEMP 98.4; O2SAT 100
== END 2025-02-10 02:15 | disposition home or self-care (01) ==
LOC: ER 22:13
DX: M54.2 Cervicalgia (principal); G40.909 Epilepsy, unspecified, not intractable, without status epilepticus; I10 Essential (primary) hypertension; E11.65 Type 2 diabetes mellitus with hyperglycemia; E03.9 Hypothyroidism, unspecified; E78.5 Hyperlipidemia, unspecified; F32.A Depression, unspecified; R94.31 Abnormal electrocardiogram [ECG] [EKG]; Z85.6 Personal history of leukemia; Z87.19 Personal history of other diseases of the digestive system
CPT/HCPCS: 36415; 70450; 71045; 72125; 80053; 80307; 82550; 83690; 83880; 84484; 85025; 93005; 99284; J1953; J7050